=== PATIENT | male | born 1965 | race American Indian/Alaskan Native ===

== ENCOUNTER 2018-07-21 10:52 | Inpatient (IN) | payer MEDICARE ==
[2018-07-21] MEDS ORDERED: TIZANIDINE 6 MG PO PRN (21:38)
[2018-07-21] MEDS ORDERED: TYLENOL PO PRN (21:42)
[2018-07-21] MEDS ORDERED: SODIUM CHLORIDE FLUSH SYRINGE 10 ML IV PRN (21:42)
[2018-07-21] MEDS ORDERED: ZOFRAN IV PRN (21:42)
[2018-07-21] MEDS ORDERED: PERCOCET 5/325 PO PRN (21:42)
[2018-07-21] MEDS ORDERED: VANCOMYCIN PHARMACY TO DOSE IV SCH (22:00)
[2018-07-21] MEDS ORDERED: AMBIEN PO PRN (22:08)
[2018-07-21] MEDS ORDERED: ZANAFLEX PO PRN (22:13)
[2018-07-21] MEDS: THERAGRAN Tab PO SCH (22:19)
[2018-07-21] MEDS: DILAUDID IV PRN (22:20)
[2018-07-21] MEDS: SODIUM CHLORIDE FLUSH SYRINGE 10 ML IV SCH (22:21)
[2018-07-21 22:35] LABS: Basophils % (Auto) 0.7 % (0.0-1.8); Eosinophils # (Auto) 0.1 K/mm3 (0.0-0.4); Eosinophils % (Auto) 2.7 % (0.0-4.3); Hematocrit 34.1 % (35.5-45.6); Hemoglobin 11.6 gm/dl (11.8-15.2); Lymphocytes # (Auto) 1.1 K/mm3 (1.2-5.4); Lymphocytes % (Auto) 24.3 % (13.4-35.0); Mean Corpuscular HGB Conc 34 % (32-34); Mean Corpuscular Volume 91 fl (84-94); Monocytes # (Auto) 0.7 K/mm3 (0.0-0.8); Monocytes % (Auto) 14.7 % (0.0-7.3); Platelet Count 126 K/mm3 (140-440); Red Blood Count 3.74 M/mm3 (3.65-5.03); Red Cell Distribution Width 18.7 % (13.2-15.2)
[2018-07-21] MEDS ORDERED: VANCOMYCIN 1,750 MG in NACL 0.9% 500 ML 500 ML IV ONE (23:00)
[2018-07-21 23:02] LABS: Albumin 4.3 g/dL (3.9-5); Calcium 8.7 mg/dL (8.4-10.2)
--- NOTE | 2018-07-22 07:12 | Event Note ---
Date: 07/21/18 See H/p in reports LLE Cellulitis
[2018-07-22 07:34] LABS: Calcium 8.6 mg/dL (8.4-10.2)
--- NOTE | 2018-07-22 07:35 | History and Physical Report ---
CHIEF COMPLAINT: Left lower extremity swelling. Now sent as a direct admit from Dr. Little's office. HISTORY OF PRESENT ILLNESS: A 53-year-old -Serbian male with history of end-stage renal disease, on dialysis; generalized anxiety disorder and hypotension, sent in from Dr. Little's office for left lower extremity fifth toe infection and swelling of the left foot. The patient stated that the left fifth toe skin was red and now it is peeling off with discoloration, also swelling of the left foot. No shortness of breath. No chest pain. No fever or chills. PAST MEDICAL HISTORY: Significant for end-stage renal disease, on dialysis; chronic pain, hypotension, peripheral neuropathy. PAST SURGICAL HISTORY: AV fistula. SOCIAL HISTORY: Does not smoke. No alcohol, no recreational drugs. FAMILY HISTORY: Significant for hypertension. REVIEW OF SYSTEMS: Significant for left lower extremity swelling and redness, also left toe discoloration. No fever or chills. Otherwise, review of systems is negative. CURRENT MEDICATIONS: Midodrine 5 mg 3 times a day, Lyrica 100 mg t.i.d., Renvela 4000 mg t.i.d., tizanidine 6 mg daily, zolpidem 10 mg at bedtime, methadone 10 mg once a day, alprazolam 2 mg 3 times a day. Chantix on hold. PHYSICAL EXAMINATION: GENERAL: Middle-aged male, cooperative during examination. VITAL SIGNS: Blood pressure was 115/73, temperature 99.5, pulse is 88, respirations 20. HEENT: Unremarkable. Pupils equal and reactive. NECK: Supple, no lymphadenopathy, no thyromegaly. LUNGS: Clear to auscultation and percussion. Good air entry. CARDIOVASCULAR: S1, S2 heard. No gallop, no murmur, no rub. Apical impulse in left fifth intercostal space and midclavicular line. ABDOMEN: Soft and benign. No hepatosplenomegaly, no guarding, no rigidity. Hernial orifices are normal. EXTREMITIES: Left foot swollen, left great toe discoloration present. Skin is mottled and about to peel off. Pulses weakly felt. CENTRAL NERVOUS SYSTEM: Normal. LABORATORY DATA: Significant for white count of 4500, H and H is 11.6 and 34.1, platelet count is 126,000. Sodium is 136, potassium is 4.5, chloride is 86.4, bicarbonate is 37, BUN and creatinine is 29 and 9.1, total protein is 8.5. ASSESSMENT AND PLAN: 1. Left lower extremity cellulitis. The patient initiated on Unasyn and vancomycin. Orthopedic consult requested for the left toe infection and also ID consult requested. 2. End-stage renal disease. Continue dialysis. Dr. Obrien was consulted. 3. Hypotension. Continue midodrine. 4. Chronic pain. Continue methadone. 5. Peripheral neuropathy. Continue Lyrica. 6. Deep venous thrombosis prophylaxis, heparin 5000 q. 12. 7. Hyponatremia, mild. No action. 8. Anemia, chronic secondary to end-stage renal disease. Hemoglobin is 11.6. No intervention needed. JOB# [id number] ENRIQUE/KELLEY JACKSON
[2018-07-22] MEDS ORDERED: NON-FORMULARY (Pregabalin [Lyrica] 100 MG) PO SCH (08:00)
[2018-07-22] MEDS: LYRICA PO SCH ×6 (09:24→23:25)
[2018-07-22] MEDS: RENVELA PO SCH ×3 (09:24→18:35)
[2018-07-22] MEDS: XANAX PO SCH ×3 (09:25→23:24)
[2018-07-22] MEDS: PROAMATINE PO SCH ×3 (09:25→22:35)
[2018-07-22] MEDS: DOLOPHINE PO SCH (09:36)
[2018-07-22] MEDS: THERAGRAN Tab PO SCH (09:39)
[2018-07-22] MEDS: SODIUM CHLORIDE FLUSH SYRINGE 10 ML IV SCH ×2 (10:16→23:25)
[2018-07-22] MEDS: DILAUDID IV PRN (10:16)
[2018-07-22 10:21] LABS: Hematocrit 35.8 % (35.5-45.6); Hemoglobin 11.8 gm/dl (11.8-15.2); Mean Corpuscular HGB Conc 33 % (32-34); Mean Corpuscular Volume 92 fl (84-94); Platelet Count 119 K/mm3 (140-440); Red Blood Count 3.88 M/mm3 (3.65-5.03); Red Cell Distribution Width 18.8 % (13.2-15.2)
[2018-07-22 10:22] LABS: Basophils % (Auto) 0.7 % (0.0-1.8); Eosinophils # (Auto) 0.1 K/mm3 (0.0-0.4); Eosinophils % (Auto) 2.9 % (0.0-4.3); Lymphocytes # (Auto) 0.7 K/mm3 (1.2-5.4); Lymphocytes % (Auto) 17.5 % (13.4-35.0); Monocytes # (Auto) 0.6 K/mm3 (0.0-0.8); Monocytes % (Auto) 15.8 % (0.0-7.3)
--- NOTE | 2018-07-22 10:55 | Consultation ---
History of Present Illness - Reason for Consult Consult date: 07/22/18 end stage renal disease - History of Present Illness This is a 53 year old male who is admitted to this hospital for management of his left leg Cellulitis. Patient removed callous from his left 5th toe 2 weeks ago and states yesterday he noticed drainage coming from his left 5th toe and swelling. Infectious Disease and Ortho has been consulted. Currently complains of diarrhea from his IBS and is receiving Imodium. Patient has history of ESRD and is on hemodialysis every M,, at [facility]. Patient is due for dialysis today. We are being consulted for management of this patient's ESRD. Past History Past Medical History: anemia, diabetes, dialysis, ESRD, hypertension, renal failure, other (IBS, Chronic Hypotension) Past Surgical History: Other (AVG placement, Spinal surgery, eye surgery) Social history: no significant social history Family history: no significant family history Medications and Allergies Allergies Allergy/AdvReac Type Severity Reaction Status Date / Time No Known Allergies Allergy Verified 03/08/13 12:58 Home Medications Medication Instructions Recorded Confirmed Last Taken Type Multivitamin Tab [Multiple Vitamin 1 each PO QDAY #30 tablet 04/17/14 07/21/18 1 Day Ago Rx TAB (Theragran)] ~07/20/18 Sevelamer Carbonate [Renvela] 4,000 mg PO TIDWM 05/29/15 07/21/18 1 Day Ago History ~07/20/18 Zolpidem [Ambien] 10 mg PO QHS PRN 05/29/15 07/21/18 1 Day Ago History ~07/20/18 ALPRAZolam [Xanax TAB] 2 mg PO TID 07/21/18 07/21/18 1 Day Ago History ~07/20/18 Methadone [Dolophine] 10 mg PO DAILY 07/21/18 07/21/18 1 Day Ago History ~07/20/18 Midodrine [Proamatine] 5 mg PO TID 07/21/18 07/21/18 1 Day Ago History ~07/20/18 Oxycodone HCl [Roxicodone TAB] 15 mg PO TID 07/21/18 07/21/18 07/20/18 History Phenergan TAB 25 tab PO DAILY 07/21/18 07/21/18 1 Day Ago History ~07/20/18 Pregabalin [Lyrica] 100 mg PO TID 07/21/18 07/21/18 1 Day Ago History ~07/20/18 Varenicline Tartrate [Chantix] 1 mg PO DAILY 07/21/18 07/21/18 1 Day Ago History ~07/20/18 tiZANidine 6 mg PO QDAY PRN 07/21/18 07/21/18 1 Day Ago History ~07/20/18 Active Meds: Active Medications Acetaminophen (Tylenol) 650 mg PO Q4H PRN PRN Reason: Pain MILD(1-3)/Fever >100.5/WEST Alprazolam (Xanax) 2 mg PO TID [facility] Last Admin: 07/22/18 09:25 Dose: 2 mg Documented by: Hydromorphone HCl (Dilaudid) 0.5 mg IV Q3H PRN PRN Reason: Pain , Severe (7-10) Last Admin: 07/22/18 10:16 Dose: 0.5 mg Documented by: Ampicillin Sodium/Sulbactam Sodium (Unasyn/Ns 3 Gm/100 Ml) 3 gm in 100 mls @ 100 mls/hr IV Q12H [facility]; Protocol Last Admin: 07/21/18 23:51 Dose: 100 mls/hr Documented by: Methadone HCl (Dolophine) 10 mg PO DAILY [facility] Last Admin: 07/22/18 09:36 Dose: 10 mg Documented by: Midodrine (Proamatine) 5 mg PO TID [facility] Last Admin: 07/22/18 09:25 Dose: 5 mg Documented by: Multivitamins (Theragran Tab) 1 each PO QDAY [facility] Last Admin: 07/22/18 09:39 Dose: 1 each Documented by: Ondansetron HCl (Zofran) 4 mg IV Q8H PRN PRN Reason: Nausea And Vomiting Oxycodone/Acetaminophen (Percocet 5/325) 1 tab PO Q6H PRN PRN Reason: Pain, Moderate (4-6) Pregabalin (Lyrica) 25 mg PO TID [facility] Last Admin: 07/22/18 09:24 Dose: 25 mg Documented by: Pregabalin (Lyrica) 75 mg PO TID [facility] Last Admin: 07/22/18 09:25 Dose: 75 mg Documented by: Sevelamer Carbonate (Renvela) 4,000 mg PO TIDWM [facility] Last Admin: 07/22/18 09:24 Dose: 4,000 mg Documented by: Sodium Chloride (Sodium Chloride Flush Syringe 10 Ml) 10 ml IV BID [facility] Last Admin: 07/22/18 10:16 Dose: 10 ml Documented by: Sodium Chloride (Sodium Chloride Flush Syringe 10 Ml) 10 ml IV PRN PRN PRN Reason: LINE FLUSH Tizanidine HCl (Zanaflex) 6 mg PO QDAY PRN PRN Reason: Muscle Spasm Zolpidem Tartrate (Ambien) 10 mg PO QHS PRN PRN Reason: Sleep Review of Systems Constitutional: fatigue, no weight loss, no weight gain, no fever, no chills, no sweats, no poor appetite, no daytime sleepiness, no chronic pain Ears, nose, mouth and throat: no ear pain, no ear discharge, no tinnitis, no decreased hearing, no nose pain, no nasal congestion Cardiovascular: no chest pain, no orthopnea, no palpitations, no rapid/irregular heart beat, no shortness of breath Respiratory: no cough, no cough with sputum, no excessive sputum, no hemoptysis, no shortness of breath, no dyspnea on exertion Gastrointestinal: no abdominal pain, no nausea, no vomiting, no diarrhea, no constipation, no change in bowel habits Rectal: no pain, no incontinence, no bleeding, no itching Musculoskeletal: arthritis, other (left foot swelling), no neck stiffness, no neck pain, no shooting arm pain, no arm numbness/tingling, no low back pain, no shooting leg pain Integumentary: no rash, no pruritis, no redness, no sores, no wounds, no jaundice Neurological: lack of coordination, no head injury, no transient paralysis, no paralysis, no parathesias, no headaches, no migraines, no convulsions, no change in speech, no change in mentation Psychiatric: anxiety Endocrine: no cold intolerance, no heat intolerance, no polyphagia, no excessive thirst, no polydipsia Hematologic/Lymphatic: no easy bruising, no easy bleeding Exam - Vital Signs Vital signs: Vital Signs Temp Pulse Resp BP Pulse Ox 99.5 F 88 20 115/73 95 07/21/18 15:19 07/21/18 15:19 07/21/18 15:19 07/21/18 15:19 07/21/18 15:19 - General Appearance General appearance: well-developed, appears stated age, fatigue EENT: ATNC, PERRL, hearing intact, vision intact Neck: Present: neck supple, trachea midline Respiratory: Decreased Breath Sounds Heart: regular, S1S2 Gastrointestinal: Present: normoactive bowel sounds Integumentary: warm and dry Neurologic: alert and oriented x3 Musculoskeletal: Present: joint swelling, other (2+ edema to left lower extremity with dressing over toes) Results - Lab Results 07/22/18 09:55 07/22/18 06:58 Most recent lab results Calcium 8.6 mg/dL (8.4-10.2) 07/22/18 06:58 Assessment and Plan End Stage Renal Disease on Hemodialysis: -Hemodialysis today for UF and clearance -Fluid restriction of 1 liter per day -Obtain daily weights -Monitor I/O's -Renal diet -Assess dialysis needs daily Left Lower Extremity Cellulitis: - On IV Unasyn - ID and Ortho consulted Chronic Hypotension: -On Midodrine -Monitor BP IBS: Diarrhea: -On Imodium
[2018-07-22] MEDS ORDERED: NACL 0.9% 100 ML IV PRN (10:57)
[2018-07-22] MEDS ORDERED: ALBURX 25% (ALBUMIN) IV PRN (10:57)
[2018-07-22] MEDS: HABITROL TD SCH (12:10)
[2018-07-22] MEDS: IMODIUM PO PRN (12:13)
[2018-07-22] MEDS ORDERED: LOMOTIL PO ONE (13:30)
--- NOTE | 2018-07-22 13:42 | Consultation ---
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 The patient states that he was apparently doing fine until 07/19/2018 when he noticed his left foot was getting swollen as well as the fifth toe skin had turned red with some blister. He tried to clean it and it was significant bleeding. He then saw his PCP who recommended hospital admission. He otherwise denies any fever or chills. Denies any nausea, vomiting. Reports chronic diarrhea secondary to IBS. Patient was empirically started on Unasyn and vancomycin. Infectious diseases was consulted for additional recommendations. Orthopedics consulted on admission. Review of Systems: General: no fevers,chills or rigors HEENT: no new visual disturbance Respiratory: No cough, sputum, hemoptysis or shortness of breath Cardiovascular: No chest pain, syncope Gastrointestinal: No nausea, vomiting. Chronic unchanged diarrhea attributed to IBS by patient Genitourinary: No dysuria or hematuria Musculoskeletal: No new or worsening neck pain or back pain Neurologic: No headaches, seizures Hematologic: No easy bruising or bleeding Endocrine: No night sweats or acute weight loss Skin: negative for rash, jaundice Psychiatric: No suicidal or homicidal ideation Past History Past Medical History: anemia, diabetes, dialysis, ESRD, hypertension, renal failure, other (IBS, Chronic Hypotension) Past Surgical History: Other (AVG placement, Spinal surgery, eye surgery) Social history: no significant social history Family history: no significant family history Medications and Allergies Allergies Allergy/AdvReac Type Severity Reaction Status Date / Time No Known Allergies Allergy Verified 03/08/13 12:58 Home Medications Medication Instructions Recorded Confirmed Last Taken Type Multivitamin Tab [Multiple Vitamin 1 each PO QDAY #30 tablet 04/17/14 07/21/18 1 Day Ago Rx TAB (Theragran)] ~07/20/18 Sevelamer Carbonate [Renvela] 4,000 mg PO TIDWM 05/29/15 07/21/18 1 Day Ago History ~07/20/18 Zolpidem [Ambien] 10 mg PO QHS PRN 05/29/15 07/21/18 1 Day Ago History ~07/20/18 ALPRAZolam [Xanax TAB] 2 mg PO TID 07/21/18 07/21/18 1 Day Ago History ~07/20/18 Methadone [Dolophine] 10 mg PO DAILY 07/21/18 07/21/18 1 Day Ago History ~07/20/18 Midodrine [Proamatine] 5 mg PO TID 07/21/18 07/21/18 1 Day Ago History ~07/20/18 Oxycodone HCl [Roxicodone TAB] 15 mg PO TID 07/21/18 07/21/18 07/20/18 History Phenergan TAB 25 tab PO DAILY 07/21/18 07/21/18 1 Day Ago History ~07/20/18 Pregabalin [Lyrica] 100 mg PO TID 07/21/18 07/21/18 1 Day Ago History ~07/20/18 Varenicline Tartrate [Chantix] 1 mg PO DAILY 07/21/18 07/21/18 1 Day Ago History ~07/20/18 tiZANidine 6 mg PO QDAY PRN 07/21/18 07/21/18 1 Day Ago History ~07/20/18 Active Meds: Active Medications Acetaminophen (Tylenol) 650 mg PO Q4H PRN PRN Reason: Pain MILD(1-3)/Fever >100.5/WEST Albumin Human (Alburx 25% (Albumin)) 12.5 gm IV DWIGHT PRN PRN Reason: Hypotension Alprazolam (Xanax) 2 mg PO TID [facility] Last Admin: 07/22/18 09:25 Dose: 2 mg Documented by: Hydromorphone HCl (Dilaudid) 0.5 mg IV Q3H PRN PRN Reason: Pain , Severe (7-10) Last Admin: 07/22/18 10:16 Dose: 0.5 mg Documented by: Sodium Chloride (Nacl 0.9%) 100 mls @ 999 mls/hr IV DWIGHT PRN PRN Reason: Hypotension Cefepime HCl (Maxipime/Ns 1 Gm/100 Ml) 1 gm in 100 mls @ 200 mls/hr IV QPM [facility]; Protocol Metronidazole (Flagyl 500 Mg/100 Ml) 500 mg in 100 mls @ 100 mls/hr IV Q8HR [facility]; Protocol Loperamide HCl (Imodium) 2 mg PO Q2H PRN PRN Reason: Diarrhea Last Admin: 07/22/18 12:13 Dose: 2 mg Documented by: Methadone HCl (Dolophine) 10 mg PO DAILY [facility] Last Admin: 07/22/18 09:36 Dose: 10 mg Documented by: Midodrine (Proamatine) 5 mg PO TID [facility] Last Admin: 07/22/18 09:25 Dose: 5 mg Documented by: Multivitamins (Theragran Tab) 1 each PO QDAY [facility] Last Admin: 07/22/18 09:39 Dose: 1 each Documented by: Nicotine (Habitrol) 21 mg TD QDAY [facility] Last Admin: 07/22/18 12:10 Dose: 21 mg Documented by: Ondansetron HCl (Zofran) 4 mg IV Q8H PRN PRN Reason: Nausea And Vomiting Oxycodone/Acetaminophen (Percocet 5/325) 1 tab PO Q6H PRN PRN Reason: Pain, Moderate (4-6) Pregabalin (Lyrica) 25 mg PO TID [facility] Last Admin: 07/22/18 09:24 Dose: 25 mg Documented by: Pregabalin (Lyrica) 75 mg PO TID [facility] Last Admin: 07/22/18 09:25 Dose: 75 mg Documented by: Sevelamer Carbonate (Renvela) 4,000 mg PO TIDWM [facility] Last Admin: 07/22/18 12:11 Dose: 4,000 mg Documented by: Sodium Chloride (Sodium Chloride Flush Syringe 10 Ml) 10 ml IV BID [facility] Last Admin: 07/22/18 10:16 Dose: 10 ml Documented by: Sodium Chloride (Sodium Chloride Flush Syringe 10 Ml) 10 ml IV PRN PRN PRN Reason: LINE FLUSH Tizanidine HCl (Zanaflex) 6 mg PO QDAY PRN PRN Reason: Muscle Spasm Zolpidem Tartrate (Ambien) 10 mg PO QHS PRN PRN Reason: Sleep Physical Examination - Physical Exam Narrative exam: Physical Exam: Constitutional: Alert, cooperative. No acute distress Head, Ears, Nose: Normocephalic, atraumatic. External ears, nose normal Eyes: Conjunctivae/corneas clear. No icterus. No ptosis. Neck: Supple, no meningeal signs Oral: dentition several missing teeth, no thrush Cardiovascular: S1, S2 normal. Respiratory: Good air entry, clear to auscultation bilaterally GI: Soft, non-tender; bowel sounds normal. No peritoneal signs Musculoskeletal: LLE with edema of foot, toes extending to mid-coates. 5th toe with pale appearance, skin with hyperpigmentation. Skin: No rash or abscess Hem/Lymphatic: No palpable cervical or supraclavicular nodes. No lymphangitis Psych: Mood ok. Affect normal Neurological: Awake, alert, oriented. No gross abnormality - Constitutional Vitals: Vital Signs Temp Pulse Resp BP Pulse Ox 97.7 F 90 22 109/73 94 07/22/18 12:19 07/22/18 12:19 07/22/18 12:19 07/22/18 12:19 07/22/18 12:19 Temperature -Last 24 Hours Temperature 97.7 F Temperature 97.4 F Temperature 97.8 F Temperature 99.2 F Temperature 99.5 F Results - Labs CBC & Chem 7: 07/22/18 09:55 07/22/18 06:58 Labs: Abnormal lab results 07/21/18 07/21/18 07/22/18 Range/Units 21:52 21:52 06:58 WBC (4.5-11.0) K/mm3 Hgb 11.6 L (11.8-15.2) gm/dl Hct 34.1 L (35.5-45.6) % RDW 18.7 H (13.2-15.2) % Plt Count 126 L (140-440) K/mm3 [place] % (Auto) 14.7 H (0.0-7.3) % Lymph # 1.1 L (1.2-5.4) K/mm3 Sodium 136 L 134 L (137-145) mmol/L Potassium 5.3 H (3.6-5.0) mmol/L Chloride 86.4 L 87.9 L (98-107) mmol/L Carbon Dioxide 37 H (22-30) mmol/L BUN 29 H 31 H (9-20) mg/dL Creatinine 9.1 H 9.6 H (0.8-1.5) mg/dL Glucose 70 L 106 H (75-100) mg/dL Total Protein 8.5 H (6.3-8.2) g/dL 07/22/18 Range/Units 09:55 WBC 3.9 L (4.5-11.0) K/mm3 Hgb (11.8-15.2) gm/dl Hct (35.5-45.6) % RDW 18.8 H (13.2-15.2) % Plt Count 119 L (140-440) K/mm3 [place] % (Auto) 15.8 H (0.0-7.3) % Lymph # 0.7 L (1.2-5.4) K/mm3 Sodium (137-145) mmol/L Potassium (3.6-5.0) mmol/L Chloride (98-107) mmol/L Carbon Dioxide (22-30) mmol/L BUN (9-20) mg/dL Creatinine (0.8-1.5) mg/dL Glucose (75-100) mg/dL Total Protein (6.3-8.2) g/dL Assessment and Plan Cultures: 07/21/2018 MRSA nasal culture: In process Chart reviewed. A/P: 53-year-old male with ESRD on hemodialysis, diet and exercise controlled diabetes mellitus, peripheral neuropathy, prior MRSA bacteremia in 02/2014 and 04/2013. Now with: 1) Left lower extremity cellulitis with concern for possible underlying osteomyelitis of the left fifth toe: Start empiric antibiotics. Will obtain ultrasound to rule out DVT, also obtain arterial duplex. We'll obtain MRI to e valuate for underlying osteomyelitis and possible fluid collection/abscess. Patient already received abx, blood culture yield will be low. 2) ESRD: On hemodialysis. Renally dose antibiotics. 3) Peripheral neuropathy Recs: Empiric abx: Cefepime, Vancomycin and Flagyl d/leela Unasyn ultrasound to rule out DVT, also obtain arterial duplex MRI left foot without contrast to eval for osteomyelitis and abscess Awaiting surgery evaluation D/W Dr. Ramirez. MD [facility] C: [phone] O: [phone] F: [phone]
[2018-07-22] MEDS: FLAGYL 500 MG/100 ML 500 MG/100 ML BAG IV SCH ×2 (14:14→23:23)
--- NOTE | 2018-07-22 15:08 | Progress Note ---
Assessment and Plan Assessment and plan: --Left lower extremity cellulitis; and toe infection IV antibiotics, vancomycin, cefepime, and Flagyl follow cultures ID consult, Follow MRI lower extremity to rule out osteomyelitis Lower extremity venous Doppler negative for DVT --End-stage renal disease on hemodialysis; HD per scheduled, nephrology following --Type 2 diabetes mellitus; diet controlled Accu-Chek sliding scale coverage and ADA diet Insulin as needed, HbA1c less than 5 --Hypotension; IV fluids, continue Midodrin --Hyponatremia; closely monitor electrolytes --Irritable bowel syndrome/chronic diarrhea; Antidiarrheals, supportive care, stool for analysis if no improvement --Anemia of chronic disease and ESRD; Procrit during dialysis, closely monitor H&H --Peripheral neuropathy; on recheck up and supportive care. --DVT prophylaxis; hepatomegaly and renal dose Closely monitor the patient and adjust the management as needed Follow consults and recommendations, Plan of care reviewed with the patient History Interval history: Patient seen and examined medical records reviewed Patient is admitted with cellulitis on IV antibiotics Complaints of diarrhea Vital signs reviewed Hospitalist Physical - Constitutional Vitals: Temp Pulse Resp BP Pulse Ox 97.7 F 90 22 109/73 94 07/22/18 12:19 07/22/18 12:19 07/22/18 12:19 07/22/18 12:19 07/22/18 12:19 General appearance: Present: no acute distress, well-nourished - EENT Eyes: Present: PERRL, EOM intact - Neck Neck: Present: supple, normal ROM - Respiratory Respiratory effort: normal Respiratory: bilateral: diminished, negative: rales, rhonchi, wheezing - Cardiovascular Rhythm: regular Heart Sounds: Present: S1 & S2 - Extremities Extremities: no ischemia, abnormal (left lower extremity cellulitis, total infection) Extremity abnormal: edema Results - Labs CBC & Chem 7: 07/22/18 09:55 07/22/18 06:58 Labs: Laboratory Last Values WBC 3.9 K/mm3 (4.5-11.0) L 07/22/18 09:55 RBC 3.88 M/mm3 (3.65-5.03) 07/22/18 09:55 Hgb 11.8 gm/dl (11.8-15.2) 07/22/18 09:55 Hct 35.8 % (35.5-45.6) 07/22/18 09:55 MCV 92 fl (84-94) 07/22/18 09:55 MCH 30 pg (28-32) 07/22/18 09:55 MCHC 33 % (32-34) 07/22/18 09:55 RDW 18.8 % (13.2-15.2) H 07/22/18 09:55 Plt Count 119 K/mm3 (140-440) L 07/22/18 09:55 Lymph % (Auto) 17.5 % (13.4-35.0) 07/22/18 09:55 [place] % (Auto) 15.8 % (0.0-7.3) H 07/22/18 09:55 Eos % (Auto) 2.9 % (0.0-4.3) 07/22/18 09:55 Baso % (Auto) 0.7 % (0.0-1.8) 07/22/18 09:55 Lymph # 0.7 K/mm3 (1.2-5.4) L 07/22/18 09:55 [place] # 0.6 K/mm3 (0.0-0.8) 07/22/18 09:55 Eos # 0.1 K/mm3 (0.0-0.4) 07/22/18 09:55 Baso # 0.0 K/mm3 (0.0-0.1) 07/22/18 09:55 Add Manual Diff Complete 07/22/18 09:55 Seg Neutrophils % 63.1 % (40.0-70.0) 07/22/18 09:55 Seg Neutrophils # 2.5 K/mm3 (1.8-7.7) 07/22/18 09:55 Sodium 134 mmol/L (137-145) L 07/22/18 06:58 Potassium 5.3 mmol/L (3.6-5.0) H 07/22/18 06:58 Chloride 87.9 mmol/L (98-107) L 07/22/18 06:58 Carbon Dioxide 28 mmol/L (22-30) D 07/22/18 06:58 Anion Gap 23 mmol/L 07/22/18 06:58 BUN 31 mg/dL (9-20) H 07/22/18 06:58 Creatinine 9.6 mg/dL (0.8-1.5) H 07/22/18 06:58 Estimated GFR 7 ml/min 07/22/18 06:58 BUN/Creatinine Ratio 3 % 07/22/18 06:58 Glucose 106 mg/dL (75-100) H 07/22/18 06:58 POC Glucose 85 (70-105) 07/21/18 16:34 Hemoglobin A1c 4.9 % (4-6) 07/21/18 21:52 Calcium 8.6 mg/dL (8.4-10.2) 07/22/18 06:58 Total Bilirubin 0.50 mg/dL (0.1-1.2) 07/21/18 21:52 AST 25 units/L (5-40) 07/21/18 21:52 ALT 16 units/L (7-56) 07/21/18 21:52 Alkaline Phosphatase 90 units/L (35-129) 07/21/18 21:52 Total Protein 8.5 g/dL (6.3-8.2) H 07/21/18 21:52 Albumin 4.3 g/dL (3.9-5) 07/21/18 21:52 Albumin/Globulin Ratio 1.0 % 07/21/18 21:52 Active Medications - Current Medications Current Medications: Generic Name Dose Route Start Last Admin Trade Name Freq PRN Reason Stop Dose Admin Acetaminophen 650 mg 07/21/18 21:42 Tylenol PO Q4H PRN Pain MILD(1-3)/Fever >100.5/WEST Albumin Human 12.5 gm 07/22/18 10:57 Alburx 25% (Albumin) IV DWIGHT PRN Hypotension Alprazolam 2 mg 07/22/18 08:00 07/22/18 14:15 Xanax PO 2 mg TID KWAME Administration Hydromorphone HCl 0.5 mg 07/21/18 21:42 07/22/18 10:16 Dilaudid IV 0.5 mg Q3H PRN Administration Pain , Severe (7-10) Sodium Chloride 100 mls @ 999 mls/hr 07/22/18 10:57 Nacl 0.9% IV DWIGHT PRN Hypotension Cefepime HCl 1 gm in 100 mls @ 200 mls/hr 07/22/18 18:00 Maxipime/Ns 1 Gm/100 Ml IV QPM KWAME Protocol Metronidazole 500 mg in 100 mls @ 100 mls/hr 07/22/18 14:00 07/22/18 14:14 Flagyl 500 Mg/100 Ml IV 100 mls/hr Q8HR KWAME Administration Protocol Loperamide HCl 2 mg 07/22/18 11:20 07/22/18 12:13 Imodium PO 2 mg Q2H PRN Administration Diarrhea Methadone HCl 10 mg 07/22/18 10:00 07/22/18 09:36 Dolophine PO 10 mg DAILY KWAME Administration Midodrine 5 mg 07/22/18 08:00 07/22/18 14:15 Proamatine PO 5 mg TID KWAME Administration Multivitamins 1 each 07/21/18 22:00 07/22/18 09:39 Theragran Tab PO 1 each QDAY KWAME Administration Nicotine 21 mg 07/22/18 12:00 07/22/18 12:10 Habitrol TD 21 mg QDAY KWAME Administration Ondansetron HCl 4 mg 07/21/18 21:42 Zofran IV Q8H PRN Nausea And Vomiting Oxycodone/Acetaminophen 1 tab 07/21/18 21:42 Percocet 5/325 PO Q6H PRN Pain, Moderate (4-6) Pregabalin 25 mg 07/22/18 08:00 07/22/18 14:15 Lyrica PO 25 mg TID KWAME Administration Pregabalin 75 mg 07/22/18 08:00 07/22/18 14:15 Lyrica PO 75 mg TID KWAME Administration Sevelamer Carbonate 4,000 mg 07/22/18 08:00 07/22/18 12:11 Renvela PO 4,000 mg TIDWM KWAME Administration Sodium Chloride 10 ml 07/21/18 22:00 07/22/18 10:16 Sodium Chloride Flush Syringe 10 Ml IV 10 ml BID KWAME Administration Sodium Chloride 10 ml 07/21/18 21:42 Sodium Chloride Flush Syringe 10 Ml IV PRN PRN LINE FLUSH Tizanidine HCl 6 mg 07/21/18 22:13 Zanaflex PO QDAY PRN Muscle Spasm Zolpidem Tartrate 10 mg 07/21/18 22:08 Ambien PO QHS PRN Sleep Nutrition/Malnutrition Assess - Dietary Evaluation Nutrition/Malnutrition Findings: Nutrition Notes Start: 07/22/18 14:54 Freq: Status: Active Protocol: Document 07/22/18 14:54 RM (Rec: 07/22/18 15:04 RM [id number]) Nutrition Notes Need for Assessment generated from: MST Initial or Follow up Assessment Other Pertinent Diagnosis LLE toe infection, ESRD on HD, TA Current Diet Renal Labs/Tests Reviewed Pertinent Medications Reviewed Height 6 ft 1 in Weight 90.265 kg Usual Body Weight 86 kg [place] Body Weight (kg) 83.63 BMI 26.2 Subjective/Other Information Screened for malnutrition. 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 Stated that his appetite is poor now and that he ate bites of his breakfast. Noted preferences. Declined regular ONS d/t past experience of it causing diarrhea. Admitted to diarrhea currently. Stated dry wt is 189 lbs. No temporal or orbital wasting . Percent of energy/protein needs met: 0%/0% Burn Absent Trauma Absent #1 Nutrition Diagnosis Inadequate oral intake Etiology decreased appetite As Evidenced by Signs and Symptoms pt statement that he ate bites of his breakfast Is patient on ventilator? No Is Patient Ambulatory and/or Out of Bed Yes REE-([facility]-ambulatory/OOB) [ 2354.989 [id number]] Calculation Used for Recommendations [facility] Additional Notes Protein Need: 103-112g (1.2-1. 3g/kg dry wt) Fluid Needs: 1 ml/kcal Nutrition Intervention Change Diet Order: Continue current Add Supplement/Snack (indicate name/kcal Ensure Clear Mixed [place] 1 /protein ) daily Provides kCal: 240 Provides Protein (gm) 8 Goal #1 Meet at least 75% of calorie and protein needs via PO and ONS intakes Anticipated Discharge Needs: Renal diet Follow-Up By: 07/25/18 Additional Comments Follow for PO and ONS intakes
--- NOTE | 2018-07-22 16:41 | Consultation ---
History of Present Illness - HPI Consult date: 07/22/18 Consult reason: other History of present illness: 53 y/o male with c/o left leg swelling, hx of DM,CRF and MRSA...asked to evaluate left 5th toe/cellulitis... Past History Past Medical History: anemia, diabetes, dialysis, ESRD, hypertension, renal failure, other (IBS, Chronic Hypotension) Past Surgical History: Other (AVG placement, Spinal surgery, eye surgery) Social history: no significant social history Family history: no significant family history Medications and Allergies Allergies Allergy/AdvReac Type Severity Reaction Status Date / Time No Known Allergies Allergy Verified 03/08/13 12:58 Home Medications Medication Instructions Recorded Confirmed Last Taken Type Multivitamin Tab [Multiple Vitamin 1 each PO QDAY #30 tablet 04/17/14 07/21/18 1 Day Ago Rx TAB (Theragran)] ~07/20/18 Sevelamer Carbonate [Renvela] 4,000 mg PO TIDWM 05/29/15 07/21/18 1 Day Ago History ~07/20/18 Zolpidem [Ambien] 10 mg PO QHS PRN 05/29/15 07/21/18 1 Day Ago History ~07/20/18 ALPRAZolam [Xanax TAB] 2 mg PO TID 07/21/18 07/21/18 1 Day Ago History ~07/20/18 Methadone [Dolophine] 10 mg PO DAILY 07/21/18 07/21/18 1 Day Ago History ~07/20/18 Midodrine [Proamatine] 5 mg PO TID 07/21/18 07/21/18 1 Day Ago History ~07/20/18 Oxycodone HCl [Roxicodone TAB] 15 mg PO TID 07/21/18 07/21/18 07/20/18 History Phenergan TAB 25 tab PO DAILY 07/21/18 07/21/18 1 Day Ago History ~07/20/18 Pregabalin [Lyrica] 100 mg PO TID 07/21/18 07/21/18 1 Day Ago History ~07/20/18 Varenicline Tartrate [Chantix] 1 mg PO DAILY 07/21/18 07/21/18 1 Day Ago History ~07/20/18 tiZANidine 6 mg PO QDAY PRN 07/21/18 07/21/18 1 Day Ago History ~07/20/18 Active Meds: Active Medications Acetaminophen (Tylenol) 650 mg PO Q4H PRN PRN Reason: Pain MILD(1-3)/Fever >100.5/WEST Albumin Human (Alburx 25% (Albumin)) 12.5 gm IV DWIGHT PRN PRN Reason: Hypotension Alprazolam (Xanax) 2 mg PO TID [facility] Last Admin: 07/22/18 14:15 Dose: 2 mg Documented by: Hydromorphone HCl (Dilaudid) 0.5 mg IV Q3H PRN PRN Reason: Pain , Severe (7-10) Last Admin: 07/22/18 10:16 Dose: 0.5 mg Documented by: Sodium Chloride (Nacl 0.9%) 100 mls @ 999 mls/hr IV DWIGHT PRN PRN Reason: Hypotension Cefepime HCl (Maxipime/Ns 1 Gm/100 Ml) 1 gm in 100 mls @ 200 mls/hr IV QPM [facility]; Protocol Metronidazole (Flagyl 500 Mg/100 Ml) 500 mg in 100 mls @ 100 mls/hr IV Q8HR [facility]; Protocol Last Admin: 07/22/18 14:14 Dose: 100 mls/hr Documented by: Loperamide HCl (Imodium) 2 mg PO Q2H PRN PRN Reason: Diarrhea Last Admin: 07/22/18 12:13 Dose: 2 mg Documented by: Methadone HCl (Dolophine) 10 mg PO DAILY [facility] Last Admin: 07/22/18 09:36 Dose: 10 mg Documented by: Midodrine (Proamatine) 5 mg PO TID [facility] Last Admin: 07/22/18 14:15 Dose: 5 mg Documented by: Multivitamins (Theragran Tab) 1 each PO QDAY [facility] Last Admin: 07/22/18 09:39 Dose: 1 each Documented by: Nicotine (Habitrol) 21 mg TD QDAY [facility] Last Admin: 07/22/18 12:10 Dose: 21 mg Documented by: Ondansetron HCl (Zofran) 4 mg IV Q8H PRN PRN Reason: Nausea And Vomiting Oxycodone/Acetaminophen (Percocet 5/325) 1 tab PO Q6H PRN PRN Reason: Pain, Moderate (4-6) Pregabalin (Lyrica) 25 mg PO TID [facility] Last Admin: 07/22/18 14:15 Dose: 25 mg Documented by: Pregabalin (Lyrica) 75 mg PO TID [facility] Last Admin: 07/22/18 14:15 Dose: 75 mg Documented by: Sevelamer Carbonate (Renvela) 4,000 mg PO TIDWM [facility] Last Admin: 07/22/18 12:11 Dose: 4,000 mg Documented by: Sodium Chloride (Sodium Chloride Flush Syringe 10 Ml) 10 ml IV BID [facility] Last Admin: 07/22/18 10:16 Dose: 10 ml Documented by: Sodium Chloride (Sodium Chloride Flush Syringe 10 Ml) 10 ml IV PRN PRN PRN Reason: LINE FLUSH Tizanidine HCl (Zanaflex) 6 mg PO QDAY PRN PRN Reason: Muscle Spasm Zolpidem Tartrate (Ambien) 10 mg PO QHS PRN PRN Reason: Sleep Physical Examination - Physical exam Narrative exam: left LE's - moderate swelling, no erythema/warmth noted, 5th toe dark ischemic, no drainage noted poor capillary refill Assessment and Plan Cellulitis left leg early dry gangree 5th toe continue IVAB and observation
[2018-07-22] MEDS ORDERED: ATIVAN IV NR (17:00)
--- NOTE | 2018-07-22 17:10 | Vascular Lab Report ---
PROCEDURE: VL VENOUS DUPLEX LE LT TECHNIQUE: Grayscale, color flow and Doppler waveform imaging of the deep venous structures of the l eft lower extremity and of the proximal deep venous structures of the right lower extremity was perfo rmed. HISTORY: Left leg swelling COMPARISONS: None FINDINGS: There is demonstration of normal compression and normal phasic flow in the deep venous structures of the left lower extremity from the common femoral vein to the popliteal vein. There is demonstration of normal compression and flow in the left posterior tibial and peroneal veins . There is demonstration of normal compression and normal phasic flow in the right common femoral, prox imal superficial femoral and deep femoral veins. There is demonstration of an enlarged left inguinal lymph node measures approximately 2.6 cm in the m aximal dimension. IMPRESSION: 1. No ultrasound evidence of deep venous thrombosis left lower extremity nor in the proximal right lo wer extremity. 2. Enlarged left inguinal lymph node. This document is electronically signed by Asia Fraga MD., July 22 2018 05:07:43 PM ET
--- NOTE | 2018-07-22 17:19 | Vascular Lab Report ---
PROCEDURE: VL ARTERIAL DUPLEX LE BILAT TECHNIQUE: Grayscale, color flow and Doppler waveform imaging of the arterial structures of the lowe r extremities was performed. HISTORY: Left toe infection history of end-stage renal disease. COMPARISONS: None FINDINGS: There is demonstration of antegrade flow in the arterial structures of the lower extremities bilatera lly from the common femoral arteries to the dorsalis pedis arteries. There is no evidence of occlusion or hemodynamically significant stenosis. There is evidence of atherosclerotic vascular disease with plaque formation in the arteries of the lo wer extremities bilaterally, left greater than right. Peak systolic velocities are as follows (centimeters per second): Right lower extremity: Distal external iliac artery: 80, triphasic Common femoral artery: 75, triphasic Proximal superficial femoral artery: 88, triphasic Deep femoral artery: 63, triphasic Mid superficial femoral artery: 68, triphasic Distal superficial femoral artery: 79, triphasic Popliteal artery: 58, triphasic Posterior tibial artery: 45, biphasic Anterior tibial artery: 53, biphasic Dorsalis pedis artery: 39, biphasic Left lower extremity: Distal external iliac artery: 139, monophasic Common femoral artery: 104, monophasic Proximal superficial femoral artery: 109, monophasic Deep femoral artery: 83, biphasic Mid superficial femoral artery: 109, monophasic Distal superficial femoral artery: 132, monophasic Popliteal artery: 124, monophasic Posterior tibial artery: 49, monophasic Anterior tibial artery: 62, monophasic Dorsalis pedis artery: 65, monophasic IMPRESSION: 1. Atherosclerotic vascular disease involving the arteries of the lower extremities bilaterally, left greater than right, without evidence of occlusion or hemodynamically significant stenoses in the low er extremities. This document is electronically signed by Asia Fraga MD., July 22 2018 05:17:42 PM ET
[2018-07-22] MEDS ORDERED: MAXIPIME/NS 1 GM/100 ML 1 GM/100 ML BAG IV SCH (18:00)
--- NOTE | 2018-07-22 20:13 | Magnetic Resonance Report ---
PROCEDURE: MR LE JOINT LT WO CON HISTORY: Left 5th toe infection, r/o osteomyelitis/abscess FINDINGS: MRI of the left foot was performed using short axis TI, short axis fat saturated T2, long a xis TI, long axis fat saturated T2, likely axis inversion recovery, sagittal inversion recovery and s agittal T1-weighted images. These images demonstrate abnormal low T1, increased inversion recovery signal within the phalanges of the fifth digit, best depicted long axis fat saturated T2-weighted images 12-14. Signal within the f ifth metatarsal is within normal limits. The metatarsals and phalanges of the first through fourth ra ys display normal signal intensity. There is subcutaneous soft tissue edema of the dorsum of the foot, which could represent cellulitis. No soft tissue abscess is seen. IMPRESSION: Osteomyelitis of phalanges of fifth digit This document is electronically signed by Del Leon MD., July 22 2018 08:11:12 PM ET
[2018-07-22] MEDS ORDERED: UNASYN/NS 3 GM/100 ML 3 GM/100 ML BAG IV SCH ×3 (22:00)
[2018-07-22] MEDS ORDERED: RENVELA PO ONE (23:00)
[2018-07-22] MEDS: MAXIPIME/NS 1 GM/100 ML 1 GM/100 ML BAG IV SCH (23:23)
[2018-07-22] MEDS ORDERED: NACL 0.9 (PRIMING MACHINE ONLY DIALYSIS) MC ONE (23:27)
[2018-07-23 05:04] LABS: Basophils % (Auto) 0.7 % (0.0-1.8); Eosinophils # (Auto) 0.1 K/mm3 (0.0-0.4); Eosinophils % (Auto) 2.8 % (0.0-4.3); Hematocrit 33.4 % (35.5-45.6); Hemoglobin 10.9 gm/dl (11.8-15.2); Lymphocytes # (Auto) 0.5 K/mm3 (1.2-5.4); Mean Corpuscular HGB Conc 33 % (32-34); Mean Corpuscular Volume 93 fl (84-94); Monocytes # (Auto) 0.5 K/mm3 (0.0-0.8); Monocytes % (Auto) 15.7 % (0.0-7.3); Platelet Count 110 K/mm3 (140-440); Red Cell Distribution Width 19.3 % (13.2-15.2)
[2018-07-23 05:26] LABS: Albumin 3.8 g/dL (3.9-5); Calcium 9.1 mg/dL (8.4-10.2)
[2018-07-23] MEDS: FLAGYL 500 MG/100 ML 500 MG/100 ML BAG IV SCH ×3 (05:46→21:41)
[2018-07-23] MEDS: PROAMATINE PO SCH ×3 (09:30→21:41)
[2018-07-23] MEDS: LYRICA PO SCH ×6 (09:31→21:41)
[2018-07-23] MEDS: XANAX PO SCH ×3 (09:31→21:41)
[2018-07-23] MEDS: RENVELA PO SCH ×3 (09:32→17:46)
--- NOTE | 2018-07-23 09:34 | Progress Note ---
Assessment and Plan End Stage Renal Disease on Hemodialysis: -no indication for HD today -Fluid restriction of 1 liter per day -Obtain daily weights -Monitor I/O's -Renal diet -Assess dialysis needs daily Left Lower Extremity Cellulitis: - On IV Unasyn - ID and Ortho consulted Chronic Hypotension: -On Midodrine -Monitor BP IBS: Diarrhea: -On Imodium Subjective Date of service: 07/23/18 Principal diagnosis: ESRD on HD Interval history: tolerated HD yesterday Objective - Vital Signs Vital signs: Vital Signs - 12hr 07/22/18 07/22/18 07/22/18 21:35 21:55 23:05 Temperature 98 F 98.3 F Pulse Rate 72 70 Respiratory 18 16 Rate Blood Pressure 116/55 116/78 97/41 O2 Sat by Pulse Oximetry 07/23/18 05:25 Temperature 97.4 F L Pulse Rate 71 Respiratory 16 Rate Blood Pressure 94/58 O2 Sat by Pulse 97 Oximetry - General Appearance General appearance: well-developed, well-nourished, appears stated age EENT: ATNC, PERRL, mucous membranes moist Neck: no JVD, no carotid bruit Respiratory: Present: Clear to Ascultation. Absent: Rales, Ronchi Cardiology: regular, S1S2 Gastrointestinal: normoactive bowel sounds, no tenderness, no distended Integumentary: no rash, warm and dry Neurologic: no focal deficit, no asterixis, alert and oriented x3 Musculoskeletal: other (trace pitting edema in BLE) Psychiatric: mood/affect appropriate, cooperative - Lab 07/23/18 04:39 07/23/18 04:39 Most recent lab results Calcium 9.1 mg/dL (8.4-10.2) 07/23/18 04:39 Phosphorus 3.90 mg/dL (2.5-4.5) 07/23/18 04:39 Medications & Allergies - Medications Allergies/Adverse Reactions: Allergies No Known Allergies Allergy (Verified 03/08/13 12:58) Home Medications: Home Medications Medication Instructions Recorded Confirmed Last Taken Type Multivitamin Tab [Multiple Vitamin 1 each PO QDAY #30 tablet 04/17/14 07/21/18 1 Day Ago Rx TAB (Theragran)] ~07/20/18 Sevelamer Carbonate [Renvela] 4,000 mg PO TIDWM 05/29/15 07/21/18 1 Day Ago History ~07/20/18 Zolpidem [Ambien] 10 mg PO QHS PRN 05/29/15 07/21/18 1 Day Ago History ~07/20/18 ALPRAZolam [Xanax TAB] 2 mg PO TID 07/21/18 07/21/18 1 Day Ago History ~07/20/18 Methadone [Dolophine] 10 mg PO DAILY 07/21/18 07/21/18 1 Day Ago History ~07/20/18 Midodrine [Proamatine] 5 mg PO TID 07/21/18 07/21/18 1 Day Ago History ~07/20/18 Oxycodone HCl [Roxicodone TAB] 15 mg PO TID 07/21/18 07/21/18 07/20/18 History Phenergan TAB 25 tab PO DAILY 07/21/18 07/21/18 1 Day Ago History ~07/20/18 Pregabalin [Lyrica] 100 mg PO TID 07/21/18 07/21/18 1 Day Ago History ~07/20/18 Varenicline Tartrate [Chantix] 1 mg PO DAILY 07/21/18 07/21/18 1 Day Ago History ~07/20/18 tiZANidine 6 mg PO QDAY PRN 07/21/18 07/21/18 1 Day Ago History ~07/20/18 Active Medications: Generic Name Dose Route Start Last Admin Trade Name Freq PRN Reason Stop Dose Admin Acetaminophen 650 mg 07/21/18 21:42 Tylenol PO Q4H PRN Pain MILD(1-3)/Fever >100.5/WEST Albumin Human 12.5 gm 07/22/18 10:57 Alburx 25% (Albumin) IV DWIGHT PRN Hypotension Alprazolam 2 mg 07/22/18 08:00 07/22/18 23:24 Xanax PO 2 mg TID KWAME Administration Hydromorphone HCl 0.5 mg 07/21/18 21:42 07/22/18 10:16 Dilaudid IV 0.5 mg Q3H PRN Administration Pain , Severe (7-10) Sodium Chloride 100 mls @ 999 mls/hr 07/22/18 10:57 Nacl 0.9% IV DWIGHT PRN Hypotension Metronidazole 500 mg in 100 mls @ 100 mls/hr 07/22/18 14:00 07/23/18 05:46 Flagyl 500 Mg/100 Ml IV 100 mls/hr Q8HR KWAME Administration Protocol Cefepime HCl 1 gm in 100 mls @ 200 mls/hr 07/22/18 22:00 07/22/18 23:23 Maxipime/Ns 1 Gm/100 Ml IV 200 mls/hr QHS KWAME Administration Protocol Loperamide HCl 2 mg 07/22/18 11:20 07/22/18 12:13 Imodium PO 2 mg Q2H PRN Administration Diarrhea Methadone HCl 10 mg 07/22/18 10:00 07/22/18 09:36 Dolophine PO 10 mg DAILY KWAME Administration Midodrine 5 mg 07/22/18 08:00 07/22/18 22:35 Proamatine PO Not Given TID KWAME Multivitamins 1 each 07/21/18 22:00 07/22/18 09:39 Theragran Tab PO 1 each QDAY KWAME Administration Nicotine 21 mg 07/22/18 12:00 07/22/18 12:10 Habitrol TD 21 mg QDAY KWAME Administration Ondansetron HCl 4 mg 07/21/18 21:42 Zofran IV Q8H PRN Nausea And Vomiting Oxycodone/Acetaminophen 1 tab 07/21/18 21:42 Percocet 5/325 PO Q6H PRN Pain, Moderate (4-6) Pregabalin 25 mg 07/22/18 08:00 07/22/18 23:25 Lyrica PO 25 mg TID KWAME Administration Pregabalin 75 mg 07/22/18 08:00 07/22/18 23:24 Lyrica PO 75 mg TID KWAME Administration Sevelamer Carbonate 4,000 mg 07/22/18 08:00 07/22/18 18:35 Renvela PO Not Given TIDWM KWAME Sodium Chloride 10 ml 07/21/18 22:00 07/22/18 23:25 Sodium Chloride Flush Syringe 10 Ml IV 10 ml BID KWAME Administration Sodium Chloride 10 ml 07/21/18 21:42 Sodium Chloride Flush Syringe 10 Ml IV PRN PRN LINE FLUSH Tizanidine HCl 6 mg 07/21/18 22:13 Zanaflex PO QDAY PRN Muscle Spasm Zolpidem Tartrate 10 mg 07/21/18 22:08 Ambien PO QHS PRN Sleep
[2018-07-23] MEDS: DOLOPHINE PO SCH (11:58)
[2018-07-23] MEDS: THERAGRAN Tab PO SCH (11:58)
[2018-07-23] MEDS: IMODIUM PO PRN (11:58)
[2018-07-23] MEDS: HABITROL TD SCH (11:59)
--- NOTE | 2018-07-23 12:04 | Progress Note ---
Assessment and Plan Assessment and plan: --Left lower extremity cellulitis; and toe infection IV antibiotics, vancomycin, cefepime, and Flagyl, Follow MRI lower extremity; osteomyelitis of the fifth digit Continue current antibiotics, ID following Lower extremity venous Doppler negative for DVT --End-stage renal disease on hemodialysis; HD per scheduled, nephrology following --Type 2 diabetes mellitus; diet controlled Accu-Chek sliding scale coverage and ADA diet Insulin as needed, HbA1c less than 5 --Hypotension; IV fluids, continue Midodrin --Hyponatremia; closely monitor electrolytes --Irritable bowel syndrome/chronic diarrhea; Antidiarrheals, supportive care, stool for analysis if no improvement --Anemia of chronic disease and ESRD; Procrit during dialysis, closely monitor H&H --Peripheral neuropathy; on recheck up and supportive care. --DVT prophylaxis; hepatomegaly and renal dose Closely monitor the patient and adjust the management as needed Follow consults and recommendations, Plan of care reviewed with the patient History Interval history: Patient seen and examined medical records reviewed No new events reported by the nursing staff Patient feels better Vital signs noted Hospitalist Physical - Constitutional Vitals: Temp Pulse Resp BP Pulse Ox 94.5 F L 75 12 102/55 98 07/23/18 10:44 07/23/18 10:44 07/23/18 10:44 07/23/18 10:44 07/23/18 10:44 General appearance: Present: no acute distress, well-nourished - EENT Eyes: Present: PERRL, EOM intact, scleral icterus, conjunctival injection - Neck Neck: Present: supple, normal ROM - Respiratory Respiratory effort: normal Respiratory: bilateral: diminished, negative: rales, rhonchi, wheezing - Cardiovascular Rhythm: regular Heart Sounds: Present: S1 & S2 - Extremities Extremities: no ischemia, No edema - Abdominal General gastrointestinal: soft, non-tender, non-distended, normal bowel sounds - Integumentary Integumentary: Present: clear, warm - Psychiatric Psychiatric: appropriate mood/affect, cooperative - Neurologic Neurologic: CNII-XII intact, moves all extremities Results - Labs CBC & Chem 7: 07/23/18 04:39 07/23/18 04:39 Labs: Laboratory Last Values WBC 2.9 K/mm3 (4.5-11.0) L 07/23/18 04:39 RBC 3.60 M/mm3 (3.65-5.03) L 07/23/18 04:39 Hgb 10.9 gm/dl (11.8-15.2) L 07/23/18 04:39 Hct 33.4 % (35.5-45.6) L 07/23/18 04:39 MCV 93 fl (84-94) 07/23/18 04:39 MCH 30 pg (28-32) 07/23/18 04:39 MCHC 33 % (32-34) 07/23/18 04:39 RDW 19.3 % (13.2-15.2) H 07/23/18 04:39 Plt Count 110 K/mm3 (140-440) L 07/23/18 04:39 Lymph % (Auto) 18.0 % (13.4-35.0) 07/23/18 04:39 [place] % (Auto) 15.7 % (0.0-7.3) H 07/23/18 04:39 Eos % (Auto) 2.8 % (0.0-4.3) 07/23/18 04:39 Baso % (Auto) 0.7 % (0.0-1.8) 07/23/18 04:39 Lymph # 0.5 K/mm3 (1.2-5.4) L 07/23/18 04:39 [place] # 0.5 K/mm3 (0.0-0.8) 07/23/18 04:39 Eos # 0.1 K/mm3 (0.0-0.4) 07/23/18 04:39 Baso # 0.0 K/mm3 (0.0-0.1) 07/23/18 04:39 Add Manual Diff Complete 07/22/18 09:55 Seg Neutrophils % 62.8 % (40.0-70.0) 07/23/18 04:39 Seg Neutrophils # 1.8 K/mm3 (1.8-7.7) 07/23/18 04:39 Sodium 138 mmol/L (137-145) 07/23/18 04:39 Potassium 4.6 mmol/L (3.6-5.0) 07/23/18 04:39 Chloride 93.8 mmol/L (98-107) L 07/23/18 04:39 Carbon Dioxide 31 mmol/L (22-30) H 07/23/18 04:39 Anion Gap 18 mmol/L 07/23/18 04:39 BUN 19 mg/dL (9-20) 07/23/18 04:39 Creatinine 7.5 mg/dL (0.8-1.5) H 07/23/18 04:39 Estimated GFR 9 ml/min 07/23/18 04:39 BUN/Creatinine Ratio 3 % 07/23/18 04:39 Glucose 83 mg/dL (75-100) 07/23/18 04:39 POC Glucose 85 (70-105) 07/21/18 16:34 Hemoglobin A1c 4.9 % (4-6) 07/21/18 21:52 Calcium 9.1 mg/dL (8.4-10.2) 07/23/18 04:39 Phosphorus 3.90 mg/dL (2.5-4.5) 07/23/18 04:39 Total Bilirubin 0.50 mg/dL (0.1-1.2) 07/23/18 04:39 AST 25 units/L (5-40) 07/23/18 04:39 ALT 13 units/L (7-56) 07/23/18 04:39 Alkaline Phosphatase 88 units/L (35-129) 07/23/18 04:39 Total Protein 7.6 g/dL (6.3-8.2) 07/23/18 04:39 Albumin 3.8 g/dL (3.9-5) L 07/23/18 04:39 Albumin/Globulin Ratio 1.0 % 07/23/18 04:39 Random Vancomycin 15.1 ug/mL (0-40.0) 07/23/18 04:39 Active Medications - Current Medications Current Medications: Generic Name Dose Route Start Last Admin Trade Name Freq PRN Reason Stop Dose Admin Acetaminophen 650 mg 07/21/18 21:42 Tylenol PO Q4H PRN Pain MILD(1-3)/Fever >100.5/WEST Albumin Human 12.5 gm 07/22/18 10:57 Alburx 25% (Albumin) IV DWIGHT PRN Hypotension Alprazolam 2 mg 07/22/18 08:00 07/23/18 09:31 Xanax PO 2 mg TID KWAME Administration Hydromorphone HCl 0.5 mg 07/21/18 21:42 07/22/18 10:16 Dilaudid IV 0.5 mg Q3H PRN Administration Pain , Severe (7-10) Sodium Chloride 100 mls @ 999 mls/hr 07/22/18 10:57 Nacl 0.9% IV DWIGHT PRN Hypotension Metronidazole 500 mg in 100 mls @ 100 mls/hr 07/22/18 14:00 07/23/18 05:46 Flagyl 500 Mg/100 Ml IV 100 mls/hr Q8HR KWAME Administration Protocol Cefepime HCl 1 gm in 100 mls @ 200 mls/hr 07/22/18 22:00 07/22/18 23:23 Maxipime/Ns 1 Gm/100 Ml IV 200 mls/hr QHS KWAME Administration Protocol Loperamide HCl 2 mg 07/22/18 11:20 07/23/18 11:58 Imodium PO 2 mg Q2H PRN Administration Diarrhea Methadone HCl 10 mg 07/22/18 10:00 07/23/18 11:58 Dolophine PO 10 mg DAILY KWAME Administration Midodrine 5 mg 07/22/18 08:00 07/23/18 09:30 Proamatine PO 5 mg TID KWAME Administration Multivitamins 1 each 07/21/18 22:00 07/23/18 11:58 Theragran Tab PO 1 each QDAY KWAME Administration Nicotine 21 mg 07/22/18 12:00 07/23/18 11:59 Habitrol TD 21 mg QDAY KWAME Administration Ondansetron HCl 4 mg 07/21/18 21:42 Zofran IV Q8H PRN Nausea And Vomiting Oxycodone/Acetaminophen 1 tab 07/21/18 21:42 Percocet 5/325 PO Q6H PRN Pain, Moderate (4-6) Pregabalin 25 mg 07/22/18 08:00 07/23/18 09:31 Lyrica PO 25 mg TID KWAME Administration Pregabalin 75 mg 07/22/18 08:00 07/23/18 09:31 Lyrica PO 75 mg TID KWAME Administration Sevelamer Carbonate 4,000 mg 07/22/18 08:00 07/23/18 09:32 Renvela PO 4,000 mg TIDWM KWAME Administration Sodium Chloride 10 ml 07/21/18 22:00 07/22/18 23:25 Sodium Chloride Flush Syringe 10 Ml IV 10 ml BID KWAME Administration Sodium Chloride 10 ml 07/21/18 21:42 Sodium Chloride Flush Syringe 10 Ml IV PRN PRN LINE FLUSH Tizanidine HCl 6 mg 07/21/18 22:13 Zanaflex PO QDAY PRN Muscle Spasm Zolpidem Tartrate 10 mg 07/21/18 22:08 Ambien PO QHS PRN Sleep Nutrition/Malnutrition Assess - Dietary Evaluation Nutrition/Malnutrition Findings: Nutrition Notes Start: 07/22/18 14:54 Freq: Status: Active Protocol: Document 07/22/18 14:54 RM (Rec: 07/22/18 15:04 RM [id number]) Nutrition Notes Need for Assessment generated from: MST Initial or Follow up Assessment Other Pertinent Diagnosis LLE toe infection, ESRD on HD, TA Current Diet Renal Labs/Tests Reviewed Pertinent Medications Reviewed Height 6 ft 1 in Weight 90.265 kg Usual Body Weight 86 kg [place] Body Weight (kg) 83.63 BMI 26.2 Subjective/Other Information Screened for malnutrition. Pt stated that MSWS his appetite was poor d/t self reported IBS and that he ate 1 meal daily w/some snacks ie: chips,popcorn,etc. Stated that his appetite is poor now and that he ate bites of his breakfast. Noted preferences. Declined regular ONS d/t past experience of it causing diarrhea. Admitted to diarrhea currently. Stated dry wt is 189 lbs. No temporal or orbital wasting . Percent of energy/protein needs met: 0%/0% Burn Absent Trauma Absent #1 Nutrition Diagnosis Inadequate oral intake Etiology decreased appetite As Evidenced by Signs and Symptoms pt statement that he ate bites of his breakfast Is patient on ventilator? No Is Patient Ambulatory and/or Out of Bed Yes REE-([place]-St. Jeor-ambulatory/OOB) [ 2354.989 [id number]] Calculation Used for Recommendations [place]-St Jeor Additional Notes Protein Need: 103-112g (1.2-1. 3g/kg dry wt) Fluid Needs: 1 ml/kcal Nutrition Intervention Change Diet Order: Continue current Add Supplement/Snack (indicate name/kcal Ensure Clear Mixed [place] 1 /protein ) daily Provides kCal: 240 Provides Protein (gm) 8 Goal #1 Meet at least 75% of calorie and protein needs via PO and ONS intakes Anticipated Discharge Needs: Renal diet Follow-Up By: 07/25/18 Additional Comments Follow for PO and ONS intakes
[2018-07-23] MEDS: DILAUDID IV PRN (12:12)
[2018-07-23] MEDS: SODIUM CHLORIDE FLUSH SYRINGE 10 ML IV SCH ×2 (12:18→21:42)
[2018-07-23] MEDS: MAXIPIME/NS 1 GM/100 ML 1 GM/100 ML BAG IV SCH (22:42)
[2018-07-24] MEDS: DILAUDID IV PRN ×4 (03:58→23:08)
[2018-07-24] MEDS: IMODIUM PO PRN (03:58)
[2018-07-24] MEDS: FLAGYL 500 MG/100 ML 500 MG/100 ML BAG IV SCH ×3 (05:23→21:06)
[2018-07-24 05:39] LABS: Calcium 8.9 mg/dL (8.4-10.2)
[2018-07-24 06:02] LABS: Hematocrit 33.2 % (35.5-45.6); Hemoglobin 10.9 gm/dl (11.8-15.2); Mean Corpuscular HGB Conc 33 % (32-34); Mean Corpuscular Volume 93 fl (84-94); Platelet Count 136 K/mm3 (140-440); Red Blood Count 3.58 M/mm3 (3.65-5.03); Red Cell Distribution Width 18.5 % (13.2-15.2)
[2018-07-24] MEDS: LYRICA PO SCH ×6 (07:54→20:47)
[2018-07-24] MEDS: RENVELA PO SCH ×3 (07:54→16:15)
[2018-07-24] MEDS: PROAMATINE PO SCH ×3 (07:55→20:49)
[2018-07-24] MEDS: XANAX PO SCH ×3 (07:55→20:46)
--- NOTE | 2018-07-24 08:55 | Progress Note ---
Assessment and Plan End Stage Renal Disease on Hemodialysis: -HD tomorrow for clearance and volume removal -Fluid restriction of 1 liter per day -Obtain daily weights -Monitor I/O's -Renal diet -Assess dialysis needs daily Left Lower Extremity Cellulitis: - ID and Ortho consulted Chronic Hypotension: -On Midodrine -Monitor BP IBS: Diarrhea: -On Imodium Subjective Date of service: 07/24/18 Principal diagnosis: ESRD on HD Interval history: remains to have swelling and pain in legs Objective - Vital Signs Vital signs: Vital Signs - 12hr 07/23/18 07/24/18 21:32 04:59 Temperature 98.4 F 97.0 F L Pulse Rate 78 Respiratory 18 16 Rate Blood Pressure 102/65 99/60 O2 Sat by Pulse 92 Oximetry - General Appearance General appearance: well-developed, well-nourished, appears stated age EENT: ATNC, PERRL, mucous membranes moist Neck: no JVD, no carotid bruit Respiratory: Present: Clear to Ascultation. Absent: Rales, Ronchi Cardiology: regular, S1S2 Gastrointestinal: normoactive bowel sounds Integumentary: no rash, warm and dry Neurologic: no focal deficit, no asterixis, alert and oriented x3 Musculoskeletal: other (trace pitting edema in BLE) Psychiatric: mood/affect appropriate, cooperative - Lab 07/24/18 04:21 07/24/18 04:21 Most recent lab results Calcium 8.9 mg/dL (8.4-10.2) 07/24/18 04:21 Phosphorus 3.90 mg/dL (2.5-4.5) 07/23/18 04:39 Medications & Allergies - Medications Allergies/Adverse Reactions: Allergies No Known Allergies Allergy (Verified 03/08/13 12:58) Home Medications: Home Medications Medication Instructions Recorded Confirmed Last Taken Type Multivitamin Tab [Multiple Vitamin 1 each PO QDAY #30 tablet 04/17/14 07/21/18 1 Day Ago Rx TAB (Theragran)] ~07/20/18 Sevelamer Carbonate [Renvela] 4,000 mg PO TIDWM 05/29/15 07/21/18 1 Day Ago History ~07/20/18 Zolpidem [Ambien] 10 mg PO QHS PRN 05/29/15 07/21/18 1 Day Ago History ~07/20/18 ALPRAZolam [Xanax TAB] 2 mg PO TID 07/21/18 07/21/18 1 Day Ago History ~07/20/18 Methadone [Dolophine] 10 mg PO DAILY 07/21/18 07/21/18 1 Day Ago History ~07/20/18 Midodrine [Proamatine] 5 mg PO TID 07/21/18 07/21/18 1 Day Ago History ~07/20/18 Oxycodone HCl [Roxicodone TAB] 15 mg PO TID 07/21/18 07/21/18 07/20/18 History Phenergan TAB 25 tab PO DAILY 07/21/18 07/21/18 1 Day Ago History ~07/20/18 Pregabalin [Lyrica] 100 mg PO TID 07/21/18 07/21/18 1 Day Ago History ~07/20/18 Varenicline Tartrate [Chantix] 1 mg PO DAILY 07/21/18 07/21/18 1 Day Ago History ~07/20/18 tiZANidine 6 mg PO QDAY PRN 07/21/18 07/21/18 1 Day Ago History ~07/20/18 Active Medications: Generic Name Dose Route Start Last Admin Trade Name Freq PRN Reason Stop Dose Admin Acetaminophen 650 mg 07/21/18 21:42 Tylenol PO Q4H PRN Pain MILD(1-3)/Fever >100.5/WEST Albumin Human 12.5 gm 07/22/18 10:57 Alburx 25% (Albumin) IV DWIGHT PRN Hypotension Alprazolam 2 mg 07/22/18 08:00 07/24/18 07:55 Xanax PO 2 mg TID KWAME Administration Hydromorphone HCl 0.5 mg 07/21/18 21:42 07/24/18 03:58 Dilaudid IV 0.5 mg Q3H PRN Administration Pain , Severe (7-10) Sodium Chloride 100 mls @ 999 mls/hr 07/22/18 10:57 Nacl 0.9% IV DWIGHT PRN Hypotension Metronidazole 500 mg in 100 mls @ 100 mls/hr 07/22/18 14:00 07/24/18 05:23 Flagyl 500 Mg/100 Ml IV 100 mls/hr Q8HR KWAME Administration Protocol Cefepime HCl 1 gm in 100 mls @ 200 mls/hr 07/22/18 22:00 07/23/18 22:42 Maxipime/Ns 1 Gm/100 Ml IV 200 mls/hr QHS KWAME Administration Protocol Loperamide HCl 2 mg 07/22/18 11:20 07/24/18 03:58 Imodium PO 2 mg Q2H PRN Administration Diarrhea Methadone HCl 10 mg 07/22/18 10:00 07/23/18 11:58 Dolophine PO 10 mg DAILY KWAME Administration Midodrine 5 mg 07/22/18 08:00 07/24/18 07:55 Proamatine PO 5 mg TID KWAME Administration Multivitamins 1 each 07/21/18 22:00 07/23/18 11:58 Theragran Tab PO 1 each QDAY KWAME Administration Nicotine 21 mg 07/22/18 12:00 07/23/18 11:59 Habitrol TD 21 mg QDAY KWAME Administration Ondansetron HCl 4 mg 07/21/18 21:42 Zofran IV Q8H PRN Nausea And Vomiting Oxycodone/Acetaminophen 1 tab 07/21/18 21:42 Percocet 5/325 PO Q6H PRN Pain, Moderate (4-6) Pregabalin 25 mg 07/22/18 08:00 07/24/18 07:54 Lyrica PO 25 mg TID KWAME Administration Pregabalin 75 mg 07/22/18 08:00 07/24/18 07:55 Lyrica PO 75 mg TID KWAME Administration Sevelamer Carbonate 4,000 mg 07/22/18 08:00 07/24/18 07:54 Renvela PO 4,000 mg TIDWM KWAME Administration Sodium Chloride 10 ml 07/21/18 22:00 07/23/18 21:42 Sodium Chloride Flush Syringe 10 Ml IV 10 ml BID KWAME Administration Sodium Chloride 10 ml 07/21/18 21:42 Sodium Chloride Flush Syringe 10 Ml IV PRN PRN LINE FLUSH Tizanidine HCl 6 mg 07/21/18 22:13 Zanaflex PO QDAY PRN Muscle Spasm Zolpidem Tartrate 10 mg 07/21/18 22:08 Ambien PO QHS PRN Sleep
[2018-07-24] MEDS: THERAGRAN Tab PO SCH (09:27)
[2018-07-24] MEDS: HABITROL TD SCH (09:28)
[2018-07-24] MEDS: SODIUM CHLORIDE FLUSH SYRINGE 10 ML IV SCH ×4 (09:28→22:29)
[2018-07-24] MEDS: DOLOPHINE PO SCH (09:28)
[2018-07-24 10:13] LABS: Basophils % (Manual) 0 % (0.0-1.8); Eosinophils % (Manual) 0 % (0.0-4.3); Total Cells Counted 100
[2018-07-24 10:16] LABS: Hypochromasia Few; Platelet Estimate Consistent w Auto; Target Cells Few
--- NOTE | 2018-07-24 13:06 | Progress Note ---
Assessment and Plan Assessment and plan: --Left lower extremity cellulitis; and toe infection On IV vancomycin cefepime and Flagyln per ID elevate the limb, Wound Care, negative for DVT --Osteomyelitis left fifth digit; continue antibiotics, Orthopedic evaluated the patient Bilateral lower extremity arterial Doppler Vascular consult, Patient reports that he sees Dr. Taylor --Peripheral vascular disease; Vascular consult --End-stage renal disease on hemodialysis; HD per scheduled, nephrology following --Type 2 diabetes mellitus; diet controlled Accu-Chek sliding scale coverage and ADA diet Insulin as needed, HbA1c less than 5 --Hypotension; IV fluids, continue Midodrin --Hyponatremia; resolved --Irritable bowel syndrome/chronic diarrhea; Antidiarrheals, supportive care, stool for analysis if no improvement --Anemia of chronic disease and ESRD; Procrit during dialysis, closely monitor H&H --Peripheral neuropathy; Continue current medications --DVT prophylaxis. Renal dose heparin Follow consults and recommendations, Plan of care reviewed with the patient and his nurse History Interval history: Patient seen and examined medical records reviewed Patient feels slightly better no new complaints Vital signs noted Hospitalist Physical - Constitutional Vitals: Temp Pulse Resp BP Pulse Ox 97.8 F 73 16 108/65 94 07/24/18 11:46 07/24/18 11:46 07/24/18 11:46 07/24/18 11:46 07/24/18 11:46 General appearance: Present: no acute distress, well-nourished - EENT Eyes: Present: PERRL, EOM intact - Neck Neck: Present: supple, normal ROM - Respiratory Respiratory effort: labored Respiratory: bilateral: diminished, rhonchi, negative: rales, other - Cardiovascular Rhythm: regular Heart Sounds: Present: S1 & S2 - Extremities Extremities: abnormal (cellulitis, fifth digit osteomyelitis/ischemia) Extremity abnormal: edema - Abdominal General gastrointestinal: soft, non-tender, non-distended, normal bowel sounds - Integumentary Integumentary: Present: clear, warm - Psychiatric Psychiatric: appropriate mood/affect, cooperative - Neurologic Neurologic: CNII-XII intact, moves all extremities Results - Labs CBC & Chem 7: 07/24/18 04:21 07/24/18 04:21 Labs: Laboratory Last Values WBC 3.9 K/mm3 (4.5-11.0) L 07/24/18 04:21 RBC 3.58 M/mm3 (3.65-5.03) L 07/24/18 04:21 Hgb 10.9 gm/dl (11.8-15.2) L 07/24/18 04:21 Hct 33.2 % (35.5-45.6) L 07/24/18 04:21 MCV 93 fl (84-94) 07/24/18 04:21 MCH 30 pg (28-32) 07/24/18 04:21 MCHC 33 % (32-34) 07/24/18 04:21 RDW 18.5 % (13.2-15.2) H 07/24/18 04:21 Plt Count 136 K/mm3 (140-440) L 07/24/18 04:21 Lymph % (Auto) 18.0 % (13.4-35.0) 07/23/18 04:39 [place] % (Auto) Licensed Final Expense Agents 07/24/18 04:21 Eos % (Auto) 2.8 % (0.0-4.3) 07/23/18 04:39 Baso % (Auto) 0.7 % (0.0-1.8) 07/23/18 04:39 Lymph # 0.5 K/mm3 (1.2-5.4) L 07/23/18 04:39 [place] # 0.5 K/mm3 (0.0-0.8) 07/23/18 04:39 Eos # 0.1 K/mm3 (0.0-0.4) 07/23/18 04:39 Baso # 0.0 K/mm3 (0.0-0.1) 07/23/18 04:39 Add Manual Diff Complete 07/24/18 04:21 Total Counted 100 07/24/18 04:21 Seg Neutrophils % 62.8 % (40.0-70.0) 07/23/18 04:39 Seg Neuts % (Manual) 62.0 % (40.0-70.0) 07/24/18 04:21 Band Neutrophils % 0 % 07/24/18 04:21 Lymphocytes % (Manual) 21.0 % (13.4-35.0) 07/24/18 04:21 Reactive Lymphs % (Man) 1.0 % 07/24/18 04:21 Monocytes % (Manual) 16.0 % (0.0-7.3) H 07/24/18 04:21 Eosinophils % (Manual) 0 % (0.0-4.3) 07/24/18 04:21 Basophils % (Manual) 0 % (0.0-1.8) 07/24/18 04:21 Metamyelocytes % 0 % 07/24/18 04:21 Myelocytes % 0 % 07/24/18 04:21 Promyelocytes % 0 % 07/24/18 04:21 Blast Cells % 0 % 07/24/18 04:21 Nucleated RBC % Not Reportable 07/24/18 04:21 Seg Neutrophils # 1.8 K/mm3 (1.8-7.7) 07/23/18 04:39 Seg Neutrophils # Man 2.4 K/mm3 (1.8-7.7) 07/24/18 04:21 Band Neutrophils # 0.0 K/mm3 07/24/18 04:21 Lymphocytes # (Manual) 0.8 K/mm3 (1.2-5.4) L 07/24/18 04:21 Abs React Lymphs (Man) 0.0 K/mm3 07/24/18 04:21 Monocytes # (Manual) 0.6 K/mm3 (0.0-0.8) 07/24/18 04:21 Eosinophils # (Manual) 0.0 K/mm3 (0.0-0.4) 07/24/18 04:21 Basophils # (Manual) 0.0 K/mm3 (0.0-0.1) 07/24/18 04:21 Metamyelocytes # 0.0 K/mm3 07/24/18 04:21 Myelocytes # 0.0 K/mm3 07/24/18 04:21 Promyelocytes # 0.0 K/mm3 07/24/18 04:21 Blast Cells # 0.0 K/mm3 07/24/18 04:21 WBC Morphology Not Reportable 07/24/18 04:21 Hypersegmented Neuts Not Reportable 07/24/18 04:21 Hyposegmented Neuts Not Reportable 07/24/18 04:21 Hypogranular Neuts Not Reportable 07/24/18 04:21 Smudge Cells Not Reportable 07/24/18 04:21 Toxic Granulation Not Reportable 07/24/18 04:21 Toxic Vacuolation Not Reportable 07/24/18 04:21 Dohle Bodies Not Reportable 07/24/18 04:21 Pelger-Huet Anomaly Not Reportable 07/24/18 04:21 Faheem Rods Not Reportable 07/24/18 04:21 Platelet Estimate Consistent w auto 07/24/18 04:21 Clumped Platelets Not Reportable 07/24/18 04:21 Plt Clumps, EDTA Not Reportable 07/24/18 04:21 Large Platelets Not Reportable 07/24/18 04:21 Giant Platelets Not Reportable 07/24/18 04:21 Platelet Satelliting Not Reportable 07/24/18 04:21 Plt Morphology Comment Not Reportable 07/24/18 04:21 RBC Morphology Not Reportable 07/24/18 04:21 Dimorphic RBCs Not Reportable 07/24/18 04:21 Polychromasia Not Reportable 07/24/18 04:21 Hypochromasia Few 07/24/18 04:21 Poikilocytosis Not Reportable 07/24/18 04:21 Anisocytosis Not Reportable 07/24/18 04:21 Microcytosis Not Reportable 07/24/18 04:21 Macrocytosis Not Reportable 07/24/18 04:21 Spherocytes Not Reportable 07/24/18 04:21 Pappenheimer Bodies Not Reportable 07/24/18 04:21 Sickle Cells Not Reportable 07/24/18 04:21 Target Cells Few 07/24/18 04:21 Tear Drop Cells Not Reportable 07/24/18 04:21 Ovalocytes Not Reportable 07/24/18 04:21 Helmet Cells Not Reportable 07/24/18 04:21 [place] Bodies Not Reportable 07/24/18 04:21 [place] Rings Not Reportable 07/24/18 04:21 [place] Cells Not Reportable 07/24/18 04:21 Bite Cells Not Reportable 07/24/18 04:21 Crenated Cell Not Reportable 07/24/18 04:21 Elliptocytes Not Reportable 07/24/18 04:21 Acanthocytes (Spur) Not Reportable 07/24/18 04:21 Rouleaux Not Reportable 07/24/18 04:21 Hemoglobin C Crystals Not Reportable 07/24/18 04:21 Schistocytes Not Reportable 07/24/18 04:21 Malaria parasites Not Reportable 07/24/18 04:21 Carlos Bodies Not Reportable 07/24/18 04:21 Hem Pathologist Commnt No 07/24/18 04:21 Sodium 137 mmol/L (137-145) 07/24/18 04:21 Potassium 4.7 mmol/L (3.6-5.0) 07/24/18 04:21 Chloride 93.9 mmol/L (98-107) L 07/24/18 04:21 Carbon Dioxide 29 mmol/L (22-30) 07/24/18 04:21 Anion Gap 19 mmol/L 07/24/18 04:21 BUN 27 mg/dL (9-20) H 07/24/18 04:21 Creatinine 9.7 mg/dL (0.8-1.5) H 07/24/18 04:21 Estimated GFR 7 ml/min 07/24/18 04:21 BUN/Creatinine Ratio 3 % 07/24/18 04:21 Glucose 89 mg/dL (75-100) 07/24/18 04:21 POC Glucose 85 (70-105) 07/21/18 16:34 Hemoglobin A1c 4.9 % (4-6) 07/21/18 21:52 Calcium 8.9 mg/dL (8.4-10.2) 07/24/18 04:21 Phosphorus 3.90 mg/dL (2.5-4.5) 07/23/18 04:39 Total Bilirubin 0.50 mg/dL (0.1-1.2) 07/23/18 04:39 AST 25 units/L (5-40) 07/23/18 04:39 ALT 13 units/L (7-56) 07/23/18 04:39 Alkaline Phosphatase 88 units/L (35-129) 07/23/18 04:39 Total Protein 7.6 g/dL (6.3-8.2) 07/23/18 04:39 Albumin 3.8 g/dL (3.9-5) L 07/23/18 04:39 Albumin/Globulin Ratio 1.0 % 07/23/18 04:39 Random Vancomycin 15.1 ug/mL (0-40.0) 07/23/18 04:39 Active Medications - Current Medications Current Medications: Generic Name Dose Route Start Last Admin Trade Name Freq PRN Reason Stop Dose Admin Acetaminophen 650 mg 07/21/18 21:42 Tylenol PO Q4H PRN Pain MILD(1-3)/Fever >100.5/WEST Albumin Human 12.5 gm 07/22/18 10:57 Alburx 25% (Albumin) IV DWIGHT PRN Hypotension Alprazolam 2 mg 07/22/18 08:00 07/24/18 07:55 Xanax PO 2 mg TID KWAME Administration Hydromorphone HCl 0.5 mg 07/21/18 21:42 07/24/18 10:08 Dilaudid IV 0.5 mg Q3H PRN Administration Pain , Severe (7-10) Sodium Chloride 100 mls @ 999 mls/hr 07/22/18 10:57 Nacl 0.9% IV DWIGHT PRN Hypotension Metronidazole 500 mg in 100 mls @ 100 mls/hr 07/22/18 14:00 07/24/18 05:23 Flagyl 500 Mg/100 Ml IV 100 mls/hr Q8HR KWAME Administration Protocol Cefepime HCl 1 gm in 100 mls @ 200 mls/hr 07/22/18 22:00 07/23/18 22:42 Maxipime/Ns 1 Gm/100 Ml IV 200 mls/hr QHS KWAME Administration Protocol Loperamide HCl 2 mg 07/22/18 11:20 07/24/18 03:58 Imodium PO 2 mg Q2H PRN Administration Diarrhea Methadone HCl 10 mg 07/22/18 10:00 07/24/18 09:28 Dolophine PO 10 mg DAILY KWAME Administration Midodrine 5 mg 07/22/18 08:00 07/24/18 07:55 Proamatine PO 5 mg TID KWAME Administration Multivitamins 1 each 07/21/18 22:00 07/24/18 09:27 Theragran Tab PO 1 each QDAY KWAME Administration Nicotine 21 mg 07/22/18 12:00 07/24/18 09:28 Habitrol TD 21 mg QDAY KWAME Administration Ondansetron HCl 4 mg 07/21/18 21:42 Zofran IV Q8H PRN Nausea And Vomiting Oxycodone/Acetaminophen 1 tab 07/21/18 21:42 Percocet 5/325 PO Q6H PRN Pain, Moderate (4-6) Pregabalin 25 mg 07/22/18 08:00 07/24/18 07:54 Lyrica PO 25 mg TID KWAME Administration Pregabalin 75 mg 07/22/18 08:00 07/24/18 07:55 Lyrica PO 75 mg TID KWAME Administration Sevelamer Carbonate 4,000 mg 07/22/18 08:00 07/24/18 12:50 Renvela PO 4,000 mg TIDWM KWAME Administration Sodium Chloride 10 ml 07/21/18 22:00 07/24/18 09:28 Sodium Chloride Flush Syringe 10 Ml IV 10 ml BID KWAME Administration Sodium Chloride 10 ml 07/21/18 21:42 Sodium Chloride Flush Syringe 10 Ml IV PRN PRN LINE FLUSH Tizanidine HCl 6 mg 07/21/18 22:13 Zanaflex PO QDAY PRN Muscle Spasm Zolpidem Tartrate 10 mg 07/21/18 22:08 Ambien PO QHS PRN Sleep Nutrition/Malnutrition Assess - Dietary Evaluation Nutrition/Malnutrition Findings: Nutrition Notes Start: 07/22/18 14:54 Freq: Status: Active Protocol: Document 07/22/18 14:54 RM (Rec: 07/22/18 15:04 RM [id number]) Nutrition Notes Need for Assessment generated from: MST Initial or Follow up Assessment Other Pertinent Diagnosis LLE toe infection, ESRD on HD, TA Current Diet Renal Labs/Tests Reviewed Pertinent Medications Reviewed Height 6 ft 1 in Weight 90.265 kg Usual Body Weight 86 kg Ayden Body Weight (kg) 83.63 BMI 26.2 Subjective/Other Information Screened for malnutrition. Pt stated that [employer] his appetite was poor d/t self reported IBS and that he ate 1 meal daily w/some snacks ie: chips,popcorn,etc. Stated that his appetite is poor now and that he ate bites of his breakfast. Noted preferences. Declined regular ONS d/t past experience of it causing diarrhea. Admitted to diarrhea currently. Stated dry wt is 189 lbs. No temporal or orbital wasting . Percent of energy/protein needs met: 0%/0% Burn Absent Trauma Absent #1 Nutrition Diagnosis Inadequate oral intake Etiology decreased appetite As Evidenced by Signs and Symptoms pt statement that he ate bites of his breakfast Is patient on ventilator? No Is Patient Ambulatory and/or Out of Bed Yes REE-([facility]-ambulatory/OOB) [ 2354.989 [id number]] Calculation Used for Recommendations [facility] Additional Notes Protein Need: 103-112g (1.2-1. 3g/kg dry wt) Fluid Needs: 1 ml/kcal Nutrition Intervention Change Diet Order: Continue current Add Supplement/Snack (indicate name/kcal Ensure Clear Mixed [place] 1 /protein ) daily Provides kCal: 240 Provides Protein (gm) 8 Goal #1 Meet at least 75% of calorie and protein needs via PO and ONS intakes Anticipated Discharge Needs: Renal diet Follow-Up By: 07/25/18 Additional Comments Follow for PO and ONS intakes
--- NOTE | 2018-07-24 15:41 | Progress Note ---
Assessment and Plan Cultures: 07/21/2018 MRSA nasal culture: negative Chart reviewed. A/P: 53-year-old male with ESRD on hemodialysis, diet and exercise controlled diabetes mellitus, peripheral neuropathy, prior MRSA bacteremia in 02/2014 and 04/2013. Now with: 1) Left lower extremity cellulitis with underlying acute osteomyelitis of the left fifth toe: Continue empiric antibiotics. Toe appears ischemic. MRI images reviewed, concerning for OM of 5th toe. 2) ESRD: On hemodialysis. Renally dose antibiotics. 3) Peripheral neuropathy 4) Peripheral vascular disease: arterial duplex with atherosclerotic disease. Recs: continue Cefepime, Vancomycin and Flagyl patient sees Dr. Taylor as outpatient, recommend vascular consult in AM D/W Dr. Ramirez and with patient James Hunt MD [facility] C: [phone] O: [phone] F: [phone] Subjective Date of service: 07/24/18 Principal diagnosis: ESRD on HD Interval history: No fever. Had MRI done. Tolerating abx well. No rash. No nausea, vomiting, no loose watery stools. Objective - Exam Narrative Exam: Physical Exam: Constitutional: Alert, cooperative. No acute distress Head, Ears, Nose: Normocephalic, atraumatic. External ears, nose normal Eyes: Conjunctivae/corneas clear. No icterus. No ptosis. Neck: Supple, no meningeal signs Oral: dentition several missing teeth, no thrush Cardiovascular: S1, S2 normal. Respiratory: Good air entry, clear to auscultation bilaterally GI: Soft, non-tender; bowel sounds normal. No peritoneal signs Musculoskeletal: LLE with edema of foot, toes extending to mid-coates. 5th toe with dressing. Skin: No rash or abscess Hem/Lymphatic: No palpable cervical or supraclavicular nodes. No lymphangitis Psych: Mood ok. Affect normal Neurological: Awake, alert, oriented. No gross abnormality - Constitutional Vitals: Vital Signs Temp Pulse Resp BP Pulse Ox 97.8 F 73 16 108/65 94 07/24/18 11:46 07/24/18 11:46 07/24/18 11:46 07/24/18 11:46 07/24/18 11:46 Temperature -Last 24 Hours Temperature 97.8 F Temperature 97.0 F Temperature 98.4 F Temperature 97.9 F - Labs CBC & Chem 7: 07/24/18 04:21 07/24/18 04:21 Labs: Abnormal lab results 07/24/18 07/24/18 Range/Units 04:21 04:21 WBC 3.9 L (4.5-11.0) K/mm3 RBC 3.58 L (3.65-5.03) M/mm3 Hgb 10.9 L (11.8-15.2) gm/dl Hct 33.2 L (35.5-45.6) % RDW 18.5 H (13.2-15.2) % Plt Count 136 L (140-440) K/mm3 Monocytes % (Manual) 16.0 H (0.0-7.3) % Lymphocytes # (Manual) 0.8 L (1.2-5.4) K/mm3 Chloride 93.9 L (98-107) mmol/L BUN 27 H (9-20) mg/dL Creatinine 9.7 H (0.8-1.5) mg/dL
[2018-07-24] MEDS: HEPARIN SUB-Q SCH (21:06)
[2018-07-24] MEDS: MAXIPIME/NS 1 GM/100 ML 1 GM/100 ML BAG IV SCH (22:28)
[2018-07-25 05:39] LABS: Basophils % (Auto) 0.5 % (0.0-1.8); Eosinophils # (Auto) 0.1 K/mm3 (0.0-0.4); Eosinophils % (Auto) 2.4 % (0.0-4.3); Hematocrit 35.1 % (35.5-45.6); Hemoglobin 11.6 gm/dl (11.8-15.2); Lymphocytes # (Auto) 0.8 K/mm3 (1.2-5.4); Lymphocytes % (Auto) 21.1 % (13.4-35.0); Mean Corpuscular HGB Conc 33 % (32-34); Mean Corpuscular Volume 93 fl (84-94); Monocytes # (Auto) 0.5 K/mm3 (0.0-0.8); Monocytes % (Auto) 12.8 % (0.0-7.3); Platelet Count 125 K/mm3 (140-440); Red Blood Count 3.79 M/mm3 (3.65-5.03); Red Cell Distribution Width 18.7 % (13.2-15.2)
[2018-07-25] MEDS: FLAGYL 500 MG/100 ML 500 MG/100 ML BAG IV SCH ×3 (05:43→22:01)
[2018-07-25 05:56] LABS: Calcium 8.9 mg/dL (8.4-10.2)
[2018-07-25] MEDS: DILAUDID IV PRN ×3 (06:06→22:24)
[2018-07-25] MEDS: RENVELA PO SCH ×3 (08:23→17:04)
[2018-07-25] MEDS: XANAX PO SCH ×3 (08:23→22:00)
[2018-07-25] MEDS: PROAMATINE PO SCH ×3 (08:24→22:03)
[2018-07-25] MEDS: LYRICA PO SCH ×6 (08:24→22:01)
[2018-07-25] MEDS: ASPIRIN PO SCH (10:04)
[2018-07-25] MEDS: THERAGRAN Tab PO SCH (10:04)
[2018-07-25] MEDS: HABITROL TD SCH (10:04)
[2018-07-25] MEDS: DOLOPHINE PO SCH (10:05)
[2018-07-25] MEDS: HEPARIN SUB-Q SCH ×2 (10:06→22:02)
[2018-07-25] MEDS: SODIUM CHLORIDE FLUSH SYRINGE 10 ML IV SCH ×2 (10:06→22:02)
--- NOTE | 2018-07-25 10:47 | Progress Note ---
Assessment and Plan Cultures: 07/21/2018 MRSA nasal culture: negative A/P: 53-year-old male with ESRD on hemodialysis, diet and exercise controlled diabetes mellitus, peripheral neuropathy, prior MRSA bacteremia in 02/2014 and 04/2013. Now with: 1) Left lower extremity cellulitis with underlying acute osteomyelitis of the left fifth toe: Continue empiric antibiotics. Toe appears ischemic. MRI images reviewed, concerning for OM of 5th toe. Wound culture obtained from left 5th toe. Vascular following. 2) ESRD: On hemodialysis. Renally dose antibiotics. 3) Peripheral neuropathy 4) Peripheral vascular disease: arterial duplex with atherosclerotic disease. Recs: continue Cefepime 1 gm IV Q pm, D3 continue IV Vancomycin PK dosing, target trough 10-20 mcg/ml continue Flagyl 500 mg IV every 8 hours, D3 follow up wound culture Wound care consult ordered [facility] M: [phone] O:[phone] Subjective Date of service: 07/25/18 Principal diagnosis: ESRD on HD Interval history: Patient seen and examined. Receiving HD, Wound culture collected from Left fifth toe. No fevers. Objective - Exam Narrative Exam: Physical Exam: Constitutional: Alert, cooperative. No acute distress Head, Ears, Nose: Normocephalic, atraumatic. External ears, nose normal Eyes: Conjunctivae/corneas clear. No icterus. No ptosis. Neck: Supple, no meningeal signs Oral: dentition several missing teeth, no thrush Cardiovascular: S1, S2 normal. Respiratory: Good air entry, clear to auscultation bilaterally GI: Soft, non-tender; bowel sounds normal. No peritoneal signs Musculoskeletal: LLE with edema of foot, toes extending to mid-coates. 5th toe with dressing. Skin: No rash or abscess Hem/Lymphatic: No palpable cervical or supraclavicular nodes. No lymphangitis Psych: Mood ok. Affect normal Neurological: Awake, alert, oriented. No gross abnormality - Constitutional Vitals: Vital Signs Temp Pulse Resp BP Pulse Ox 97.4 F L 69 18 128/86 91 07/25/18 05:33 07/25/18 05:33 07/25/18 06:36 07/25/18 05:33 07/25/18 05:33 Temperature -Last 24 Hours Temperature 97.4 F Temperature 97.4 F Temperature 97.4 F Temperature 97.8 F - Labs CBC & Chem 7: 07/25/18 04:44 07/25/18 04:44 Labs: Abnormal lab results 07/25/18 07/25/18 Range/Units 04:44 04:44 WBC 3.6 L (4.5-11.0) K/mm3 Hgb 11.6 L (11.8-15.2) gm/dl Hct 35.1 L (35.5-45.6) % RDW 18.7 H (13.2-15.2) % Plt Count 125 L (140-440) K/mm3 [place] % (Auto) 12.8 H (0.0-7.3) % Lymph # 0.8 L (1.2-5.4) K/mm3 Potassium 5.2 H (3.6-5.0) mmol/L Chloride 93.6 L (98-107) mmol/L BUN 32 H (9-20) mg/dL Creatinine 11.1 H (0.8-1.5) mg/dL Glucose 120 H (75-100) mg/dL
--- NOTE | 2018-07-25 11:02 | Progress Note ---
Assessment and Plan End Stage Renal Disease on Hemodialysis: -HD today for clearance and volume removal -Fluid restriction of 1 liter per day -Obtain daily weights -Monitor I/O's -Renal diet -Assess dialysis needs daily Left Lower Extremity Cellulitis: - ID and Ortho consulted Chronic Hypotension: -On Midodrine -Monitor BP IBS: Diarrhea: -On Imodium Subjective Date of service: 07/25/18 Principal diagnosis: ESRD on HD Interval history: tolerating HD this AM Objective - Vital Signs Vital signs: Vital Signs - 12hr 07/24/18 07/24/18 07/25/18 23:08 23:12 05:33 Temperature 97.4 F L 97.4 F L Pulse Rate 65 69 Respiratory 18 16 16 Rate Blood Pressure 136/86 128/86 O2 Sat by Pulse 96 91 Oximetry 07/25/18 07/25/18 06:06 06:36 Temperature Pulse Rate Respiratory 18 18 Rate Blood Pressure O2 Sat by Pulse Oximetry - General Appearance General appearance: well-developed, well-nourished, appears stated age EENT: ATNC, PERRL, mucous membranes moist Neck: no JVD, no carotid bruit Respiratory: Present: Clear to Ascultation. Absent: Rales, Ronchi Cardiology: regular, S1S2 Gastrointestinal: normoactive bowel sounds, no tenderness, no distended Integumentary: no rash, warm and dry Neurologic: no focal deficit, no asterixis, alert and oriented x3 Musculoskeletal: other (trace pitting edema in BLE) Psychiatric: mood/affect appropriate, cooperative - Lab 07/25/18 04:44 07/25/18 04:44 Most recent lab results Calcium 8.9 mg/dL (8.4-10.2) 07/25/18 04:44 Phosphorus 3.90 mg/dL (2.5-4.5) 07/23/18 04:39 Medications & Allergies - Medications Allergies/Adverse Reactions: Allergies No Known Allergies Allergy (Verified 03/08/13 12:58) Home Medications: Home Medications Medication Instructions Recorded Confirmed Last Taken Type Multivitamin Tab [Multiple Vitamin 1 each PO QDAY #30 tablet 04/17/14 07/21/18 1 Day Ago Rx TAB (Theragran)] ~07/20/18 Sevelamer Carbonate [Renvela] 4,000 mg PO TIDWM 05/29/15 07/21/18 1 Day Ago History ~07/20/18 Zolpidem [Ambien] 10 mg PO QHS PRN 05/29/15 07/21/18 1 Day Ago History ~07/20/18 ALPRAZolam [Xanax TAB] 2 mg PO TID 07/21/18 07/21/18 1 Day Ago History ~07/20/18 Methadone [Dolophine] 10 mg PO DAILY 07/21/18 07/21/18 1 Day Ago History ~07/20/18 Midodrine [Proamatine] 5 mg PO TID 07/21/18 07/21/18 1 Day Ago History ~07/20/18 Oxycodone HCl [Roxicodone TAB] 15 mg PO TID 07/21/18 07/21/18 07/20/18 History Phenergan TAB 25 tab PO DAILY 07/21/18 07/21/18 1 Day Ago History ~07/20/18 Pregabalin [Lyrica] 100 mg PO TID 07/21/18 07/21/18 1 Day Ago History ~07/20/18 Varenicline Tartrate [Chantix] 1 mg PO DAILY 07/21/18 07/21/18 1 Day Ago History ~07/20/18 tiZANidine 6 mg PO QDAY PRN 07/21/18 07/21/18 1 Day Ago History ~07/20/18 Active Medications: Generic Name Dose Route Start Last Admin Trade Name Freq PRN Reason Stop Dose Admin Acetaminophen 650 mg 07/21/18 21:42 Tylenol PO Q4H PRN Pain MILD(1-3)/Fever >100.5/WEST Albumin Human 12.5 gm 07/22/18 10:57 Alburx 25% (Albumin) IV DWIGHT PRN Hypotension Alprazolam 2 mg 07/22/18 08:00 07/25/18 08:23 Xanax PO 2 mg TID KWAME Administration Aspirin 325 mg 07/25/18 10:00 07/25/18 10:04 Aspirin PO 325 mg QDAY KWAME Administration Heparin Sodium (Porcine) 5,000 unit 07/24/18 22:00 07/25/18 10:06 Heparin SUB-Q 5,000 unit Q12HR KWAME Administration Hydromorphone HCl 0.5 mg 07/21/18 21:42 07/25/18 10:41 Dilaudid IV 0.5 mg Q3H PRN Administration Pain , Severe (7-10) Sodium Chloride 100 mls @ 999 mls/hr 07/22/18 10:57 Nacl 0.9% IV DWIGHT PRN Hypotension Metronidazole 500 mg in 100 mls @ 100 mls/hr 07/22/18 14:00 07/25/18 05:43 Flagyl 500 Mg/100 Ml IV 100 mls/hr Q8HR KWAME Administration Protocol Cefepime HCl 1 gm in 100 mls @ 200 mls/hr 07/22/18 22:00 07/24/18 22:28 Maxipime/Ns 1 Gm/100 Ml IV 200 mls/hr QHS KWAME Administration Protocol Vancomycin HCl 1 gm in 250 mls @ 167.007 mls/hr 07/25/18 16:00 Vancomycin/Ns 1 Gm/250 Ml IV 07/25/18 17:29 ONCE ONE Loperamide HCl 2 mg 07/22/18 11:20 07/24/18 03:58 Imodium PO 2 mg Q2H PRN Administration Diarrhea Methadone HCl 10 mg 07/22/18 10:00 07/25/18 10:05 Dolophine PO Not Given DAILY KWAME Midodrine 5 mg 07/22/18 08:00 07/25/18 08:24 Proamatine PO 5 mg TID KWAME Administration Multivitamins 1 each 07/21/18 22:00 07/25/18 10:04 Theragran Tab PO 1 each QDAY KWAME Administration Nicotine 21 mg 07/22/18 12:00 07/25/18 10:04 Habitrol TD 21 mg QDAY KWAME Administration Ondansetron HCl 4 mg 07/21/18 21:42 Zofran IV Q8H PRN Nausea And Vomiting Oxycodone/Acetaminophen 1 tab 07/21/18 21:42 Percocet 5/325 PO Q6H PRN Pain, Moderate (4-6) Pregabalin 25 mg 07/22/18 08:00 07/25/18 08:24 Lyrica PO 25 mg TID KWAME Administration Pregabalin 75 mg 07/22/18 08:00 07/25/18 08:24 Lyrica PO 75 mg TID KWAME Administration Sevelamer Carbonate 4,000 mg 07/22/18 08:00 07/25/18 08:23 Renvela PO 4,000 mg TIDWM KWAME Administration Sodium Chloride 10 ml 07/21/18 22:00 07/25/18 10:06 Sodium Chloride Flush Syringe 10 Ml IV 10 ml BID KWAME Administration Sodium Chloride 10 ml 07/21/18 21:42 Sodium Chloride Flush Syringe 10 Ml IV PRN PRN LINE FLUSH Tizanidine HCl 6 mg 07/21/18 22:13 Zanaflex PO QDAY PRN Muscle Spasm Zolpidem Tartrate 10 mg 07/21/18 22:08 Ambien PO QHS PRN Sleep
--- NOTE | 2018-07-25 11:35 | Consultation ---
History of Present Illness - Reason for Consult Consult date: 07/25/18 PAD with Ulceration Requesting physician: TREV CASTRO - History of Present Illness This pt is a 53yo AAM admitted via the [facility] ER on 07/21/18 due to L 5th toe infection and cellulites. He is known to our service as he has ESRD on HD through a RUE AVG. The pt developed a callus to his right foot and removed the dry skin. The resultant wound has failed to heal over the last 2 weeks. He was evaluated by his PCP, who recommended he go to the ER where he has since been admitted. An ID and Ortho consult were placed. An arterial duplex was ordered and was reported as: Atherosclerotic vascular disease involving the arteries of the lower extremities bilaterally, left greater than right, without evidence of occlusion or hemodynamically significant stenoses in the lower extremities. A vascular surgery consult is requested to further evaluate. Past History Past Medical History: anemia, diabetes, dialysis, ESRD, hypertension, renal failure, other (IBS, Chronic Hypotension, history of multiple MRSA infections/abscess) Past Surgical History: Other (bowel surgery, left upper extremity AV graft removed due to infection, attempted AV fistula left upper extremity, evacuation of hematoma/seroma, Creation of Right Brachial Artery to Axillary Vein AV Graft with Cryo-Superficial Femoral Vein in 2013, He's had multiple fistulagrams since that time, Spinal surgery, eye surgery) Social history: no significant social history Family history: hypertension Medications and Allergies Allergies Allergy/AdvReac Type Severity Reaction Status Date / Time No Known Allergies Allergy Verified 03/08/13 12:58 Home Medications Medication Instructions Recorded Confirmed Last Taken Type Multivitamin Tab [Multiple Vitamin 1 each PO QDAY #30 tablet 04/17/14 07/21/18 1 Day Ago Rx TAB (Theragran)] ~07/20/18 Sevelamer Carbonate [Renvela] 4,000 mg PO TIDWM 05/29/15 07/21/18 1 Day Ago History ~07/20/18 Zolpidem [Ambien] 10 mg PO QHS PRN 05/29/15 07/21/18 1 Day Ago History ~07/20/18 ALPRAZolam [Xanax TAB] 2 mg PO TID 07/21/18 07/21/18 1 Day Ago History ~07/20/18 Methadone [Dolophine] 10 mg PO DAILY 07/21/18 07/21/18 1 Day Ago History ~07/20/18 Midodrine [Proamatine] 5 mg PO TID 07/21/18 07/21/18 1 Day Ago History ~07/20/18 Oxycodone HCl [Roxicodone TAB] 15 mg PO TID 07/21/18 07/21/18 07/20/18 History Phenergan TAB 25 tab PO DAILY 07/21/18 07/21/18 1 Day Ago History ~07/20/18 Pregabalin [Lyrica] 100 mg PO TID 07/21/18 07/21/18 1 Day Ago History ~07/20/18 Varenicline Tartrate [Chantix] 1 mg PO DAILY 07/21/18 07/21/18 1 Day Ago History ~07/20/18 tiZANidine 6 mg PO QDAY PRN 07/21/18 07/21/18 1 Day Ago History ~07/20/18 Active Meds: Active Medications Acetaminophen (Tylenol) 650 mg PO Q4H PRN PRN Reason: Pain MILD(1-3)/Fever >100.5/WEST Albumin Human (Alburx 25% (Albumin)) 12.5 gm IV DWGIHT PRN PRN Reason: Hypotension Alprazolam (Xanax) 2 mg PO TID [facility] Last Admin: 07/25/18 08:23 Dose: 2 mg Documented by: Aspirin (Aspirin) 325 mg PO QDAY [facility] Last Admin: 07/25/18 10:04 Dose: 325 mg Documented by: Heparin Sodium (Porcine) (Heparin) 5,000 unit SUB-Q Q12HR [facility] Last Admin: 07/25/18 10:06 Dose: 5,000 unit Documented by: Hydromorphone HCl (Dilaudid) 0.5 mg IV Q3H PRN PRN Reason: Pain , Severe (7-10) Last Admin: 07/25/18 10:41 Dose: 0.5 mg Documented by: Sodium Chloride (Nacl 0.9%) 100 mls @ 999 mls/hr IV DWIGHT PRN PRN Reason: Hypotension Metronidazole (Flagyl 500 Mg/100 Ml) 500 mg in 100 mls @ 100 mls/hr IV Q8HR [facility]; Protocol Last Admin: 07/25/18 05:43 Dose: 100 mls/hr Documented by: Cefepime HCl (Maxipime/Ns 1 Gm/100 Ml) 1 gm in 100 mls @ 200 mls/hr IV QHS [facility]; Protocol Last Admin: 07/24/18 22:28 Dose: 200 mls/hr Documented by: Vancomycin HCl (Vancomycin/Ns 1 Gm/250 Ml) 1 gm in 250 mls @ 167.007 mls/hr IV ONCE ONE Stop: 07/25/18 17:29 Loperamide HCl (Imodium) 2 mg PO Q2H PRN PRN Reason: Diarrhea Last Admin: 07/24/18 03:58 Dose: 2 mg Documented by: Methadone HCl (Dolophine) 10 mg PO DAILY [facility] Last Admin: 07/25/18 10:05 Dose: Not Given Documented by: Midodrine (Proamatine) 5 mg PO TID [facility] Last Admin: 07/25/18 08:24 Dose: 5 mg Documented by: Multivitamins (Theragran Tab) 1 each PO QDAY [facility] Last Admin: 07/25/18 10:04 Dose: 1 each Documented by: Nicotine (Habitrol) 21 mg TD QDAY [facility] Last Admin: 07/25/18 10:04 Dose: 21 mg Documented by: Ondansetron HCl (Zofran) 4 mg IV Q8H PRN PRN Reason: Nausea And Vomiting Oxycodone/Acetaminophen (Percocet 5/325) 1 tab PO Q6H PRN PRN Reason: Pain, Moderate (4-6) Pregabalin (Lyrica) 25 mg PO TID [facility] Last Admin: 07/25/18 08:24 Dose: 25 mg Documented by: Pregabalin (Lyrica) 75 mg PO TID [facility] Last Admin: 07/25/18 08:24 Dose: 75 mg Documented by: Sevelamer Carbonate (Renvela) 4,000 mg PO TIDWM [facility] Last Admin: 07/25/18 08:23 Dose: 4,000 mg Documented by: Sodium Chloride (Sodium Chloride Flush Syringe 10 Ml) 10 ml IV BID [facility] Last Admin: 07/25/18 10:06 Dose: 10 ml Documented by: Sodium Chloride (Sodium Chloride Flush Syringe 10 Ml) 10 ml IV PRN PRN PRN Reason: LINE FLUSH Tizanidine HCl (Zanaflex) 6 mg PO QDAY PRN PRN Reason: Muscle Spasm Zolpidem Tartrate (Ambien) 10 mg PO QHS PRN PRN Reason: Sleep Review of Systems All systems: negative Exam - Constitutional Vitals: Temp Pulse Resp BP Pulse Ox 97.4 F L 69 18 128/86 91 07/25/18 05:33 07/25/18 05:33 07/25/18 06:36 07/25/18 05:33 07/25/18 05:33 General appearance: Present: no acute distress - EENT Eyes: Present: EOM intact ENT: hearing intact - Neck Neck: Present: supple - Respiratory Respiratory effort: normal - Extremities Extremities: normal temperature (easily palpable DP on the left) Extremity abnormal: edema (left 5th toe swelling with a small lateral ulceration, surrounding mascerated skin with skin tearing, ring of blanched tissue around the base of the toe, the distal tip of the 5th toe with early chelle iccation and cyanosis. See pictures) - Psychiatric Psychiatric: appropriate mood/affect, intact judgment & insight, cooperative - Neurologic Neurologic: no focal deficits - Additional findings Additional findings: Results - Labs CBC & Chem 7: 07/25/18 04:44 07/25/18 04:44 Labs: Abnormal lab results 07/25/18 07/25/18 Range/Units 04:44 04:44 WBC 3.6 L (4.5-11.0) K/mm3 Hgb 11.6 L (11.8-15.2) gm/dl Hct 35.1 L (35.5-45.6) % RDW 18.7 H (13.2-15.2) % Plt Count 125 L (140-440) K/mm3 [place] % (Auto) 12.8 H (0.0-7.3) % Lymph # 0.8 L (1.2-5.4) K/mm3 Potassium 5.2 H (3.6-5.0) mmol/L Chloride 93.6 L (98-107) mmol/L BUN 32 H (9-20) mg/dL Creatinine 11.1 H (0.8-1.5) mg/dL Glucose 120 H (75-100) mg/dL [facility] [address] [place] [address] Vascular Lab Report Signed Patient: SHAMA FARRELL#: [id number] : 1965Acct:[id number] Age/Sex: 53 / MADM Date: 07/21/18 Loc: 3A A353-[address]: TREV CASTRO MD Ordering Physician: DEANNA ISLAS MD Date of Service: 07/22/18 Procedure(s): arterial duplex LE BILAT Accession Number(s): [id number] cc: DEANNA ISLAS MD~ PROCEDURE: ARTERIAL DUPLEX LE BILAT TECHNIQUE: Grayscale, color flow and Doppler waveform imaging of the arterial structures of the lower extremities was performed. HISTORY: Left toe infection history of end-stage renal disease. COMPARISONS: None FINDINGS: There is demonstration of antegrade flow in the arterial structures of the lower extremities bilaterally from the common femoral arteries to the dorsalis pedis arteries. There is no evidence of occlusion or hemodynamically significant stenosis. There is evidence of atherosclerotic vascular disease with plaque formation in the arteries of the lower extremities bilaterally, left greater than right. Peak systolic velocities are as follows (centimeters per second): Right lower extremity: Distal external iliac artery: 80, triphasic Common femoral artery: 75, triphasic Proximal superficial femoral artery: 88, triphasic Deep femoral artery: 63, triphasic Mid superficial femoral artery: 68, triphasic Distal superficial femoral artery: 79, triphasic Popliteal artery: 58, triphasic Posterior tibial artery: 45, biphasic Anterior tibial artery: 53, biphasic Dorsalis pedis artery: 39, biphasic Left lower extremity: Distal external iliac artery: 139, monophasic Common femoral artery: 104, monophasic Proximal superficial femoral artery: 109, monophasic Deep femoral artery: 83, biphasic Mid superficial femoral artery: 109, monophasic Distal superficial femoral artery: 132, monophasic Popliteal artery: 124, monophasic Posterior tibial artery: 49, monophasic Anterior tibial artery: 62, monophasic Dorsalis pedis artery: 65, monophasic IMPRESSION: Imaging [id number] Patient name: SHAMA FARRELL 2 of 2 1. Atherosclerotic vascular disease involving the arteries of the lower extremities bilaterally, left greater than right, without evidence of occlusion or hemodynamically significant stenoses in the lower extremities. This document is electronically signed by Asia Fraga MD., July 22 2018 05:17:42 PM ET Transcribed By: ED Dictated By: ASIA FRAGA MD Electronically Authenticated By: ASIA FRAGA MD Signed Date/Time: 07/22/189 DD/ 16 TD/TT: 07/22/18 1618 Imaging [id number] Assessment and Plan This pt was admitted with a left 5th toe ulceration, cellulitis, and osteomylitis. He is followed by Ortho and ID. An arterial duplex suggest BLE arterial disease (L>R, with monophasic flow th roughout the left lower extremity, but without evidence of occlusion or hemodynamically significant stenoses in either lower extremity). A vascular surgery consult was requested to further evaluate. This study did not include an CHONG. I will add an order for this. Though the pt has an easily palpable left DP, and suspect he has adequate arterial flow for distal wound healing. Await results, with recommendations to follow. Pt appears to have fairly significant tissue destruction to his left 5th toe. Will defer salvageability to Ortho and ID with antibiotics alone, or if he will need further surgical intervention. - Patient Problems (1) Atherosclerosis of [place] arteries of the extremities with ulceration Current Visit: Yes Status: Acute (2) Osteomyelitis Current Visit: No Status: Acute (3) End stage renal disease on dialysis Current Visit: No Status: Chronic (4) End-stage renal disease on hemodialysis Current Visit: No Status: Chronic
--- NOTE | 2018-07-25 15:53 | Vascular Lab Report ---
PROCEDURE: VL CHONG EVALUATION TECHNIQUE: Ankle brachial index evaluation. Segmental Doppler pressures obtained at ankles and toes. Brachial pressure obtained. HISTORY: pvd with ulceration COMPARISON: None FINDINGS: In the arterial pressures at the ankle are higher than brachial pressures. On the right, the higher a nkle pressure is 184 mmHg as compared to brachial pressure of 138 mmHg. This corresponds to an ankle- brachial index of 1.33. On the right, the highest ankle pressure is 1 64 mmHg which corresponds to an kle-brachial index of 1.19. Toe pressures obtained are elevated as well, 255 mmHg bilaterally. IMPRESSION: Mildly increased ankle pressures as compared to brachial pressures. This is suggestive o f calcified stiff vasculature. Right CHONG is 1.33. Left CHONG is 1.19. This document is electronically signed by Marisa Cantu MD., July 25 2018 03:50:46 PM ET
[2018-07-25] MEDS ORDERED: VANCOMYCIN/NS 1 GM/250 ML 1 GM/250 ML BAG IV ONE (16:00)
[2018-07-25] MEDS ORDERED: NACL 0.9 (PRIMING MACHINE ONLY DIALYSIS) MC ONE (17:09)
--- NOTE | 2018-07-25 18:42 | Progress Note ---
Assessment and Plan Assessment and plan: -Left lower extremity cellulitis; and toe infection On IV vancomycin cefepime and Flagyln per ID elevate the limb, Wound Care, negative for DVT --Osteomyelitis left fifth digit; continue antibiotics, Orthopedic evaluated the patient Bilateral lower extremity arterial Doppler Vascular consult, Patient reports that he sees Dr. Taylor Surgery consult --Peripheral vascular disease; Vascular consult --End-stage renal disease on hemodialysis; HD per scheduled, nephrology following --Type 2 diabetes mellitus; diet controlled Accu-Chek sliding scale coverage and ADA diet Insulin as needed, HbA1c less than 5 --Hypotension; IV fluids, continue Midodrin --Hyponatremia; resolved --Irritable bowel syndrome/chronic diarrhea; Antidiarrheals, supportive care, stool for analysis if no improvement --Anemia of chronic disease and ESRD; Procrit during dialysis, closely monitor H&H --Peripheral neuropathy; Continue current medications --DVT prophylaxis. Renal dose heparin Follow consults and recommendations, Plan of care reviewed with the patient and his nurse History Interval history: Patient seen and examined medical records reviewed Patient is receiving hemodialysis today Vascular evaluation and recommendations noted and appreciated Vital signs noted Hospitalist Physical - Constitutional Vitals: Temp Pulse Resp BP Pulse Ox 99.0 F 88 16 90/50 91 07/25/18 14:05 07/25/18 14:05 07/25/18 14:05 07/25/18 14:05 07/25/18 05:33 General appearance: Present: no acute distress, well-nourished - EENT Eyes: Present: PERRL, EOM intact - Neck Neck: Present: supple, normal ROM - Respiratory Respiratory effort: normal Respiratory: bilateral: diminished, negative: rales, rhonchi, wheezing - Cardiovascular Rhythm: regular Heart Sounds: Present: S1 & S2 - Extremities Extremities: no ischemia, No edema, abnormal (foot dressing in place) - Abdominal General gastrointestinal: soft, non-tender, non-distended, normal bowel sounds - Integumentary Integumentary: Present: clear, warm - Psychiatric Psychiatric: appropriate mood/affect, cooperative - Neurologic Neurologic: CNII-XII intact, moves all extremities Results - Labs CBC & Chem 7: 07/26/18 04:42 07/26/18 04:42 Labs: Laboratory Last Values WBC 3.6 K/mm3 (4.5-11.0) L 07/25/18 04:44 RBC 3.79 M/mm3 (3.65-5.03) 07/25/18 04:44 Hgb 11.6 gm/dl (11.8-15.2) L 07/25/18 04:44 Hct 35.1 % (35.5-45.6) L 07/25/18 04:44 MCV 93 fl (84-94) 07/25/18 04:44 MCH 31 pg (28-32) 07/25/18 04:44 MCHC 33 % (32-34) 07/25/18 04:44 RDW 18.7 % (13.2-15.2) H 07/25/18 04:44 Plt Count 125 K/mm3 (140-440) L 07/25/18 04:44 Lymph % (Auto) 21.1 % (13.4-35.0) 07/25/18 04:44 [place] % (Auto) 12.8 % (0.0-7.3) H 07/25/18 04:44 Eos % (Auto) 2.4 % (0.0-4.3) 07/25/18 04:44 Baso % (Auto) 0.5 % (0.0-1.8) 07/25/18 04:44 Lymph # 0.8 K/mm3 (1.2-5.4) L 07/25/18 04:44 [place] # 0.5 K/mm3 (0.0-0.8) 07/25/18 04:44 Eos # 0.1 K/mm3 (0.0-0.4) 07/25/18 04:44 Baso # 0.0 K/mm3 (0.0-0.1) 07/25/18 04:44 Add Manual Diff Complete 07/24/18 04:21 Total Counted 100 07/24/18 04:21 Seg Neutrophils % 63.2 % (40.0-70.0) 07/25/18 04:44 Seg Neuts % (Manual) 62.0 % (40.0-70.0) 07/24/18 04:21 Band Neutrophils % 0 % 07/24/18 04:21 Lymphocytes % (Manual) 21.0 % (13.4-35.0) 07/24/18 04:21 Reactive Lymphs % (Man) 1.0 % 07/24/18 04:21 Monocytes % (Manual) 16.0 % (0.0-7.3) H 07/24/18 04:21 Eosinophils % (Manual) 0 % (0.0-4.3) 07/24/18 04:21 Basophils % (Manual) 0 % (0.0-1.8) 07/24/18 04:21 Metamyelocytes % 0 % 07/24/18 04:21 Myelocytes % 0 % 07/24/18 04:21 Promyelocytes % 0 % 07/24/18 04:21 Blast Cells % 0 % 07/24/18 04:21 Nucleated RBC % Not Reportable 07/24/18 04:21 Seg Neutrophils # 2.3 K/mm3 (1.8-7.7) 07/25/18 04:44 Seg Neutrophils # Man 2.4 K/mm3 (1.8-7.7) 07/24/18 04:21 Band Neutrophils # 0.0 K/mm3 07/24/18 04:21 Lymphocytes # (Manual) 0.8 K/mm3 (1.2-5.4) L 07/24/18 04:21 Abs React Lymphs (Man) 0.0 K/mm3 07/24/18 04:21 Monocytes # (Manual) 0.6 K/mm3 (0.0-0.8) 07/24/18 04:21 Eosinophils # (Manual) 0.0 K/mm3 (0.0-0.4) 07/24/18 04:21 Basophils # (Manual) 0.0 K/mm3 (0.0-0.1) 07/24/18 04:21 Metamyelocytes # 0.0 K/mm3 07/24/18 04:21 Myelocytes # 0.0 K/mm3 07/24/18 04:21 Promyelocytes # 0.0 K/mm3 07/24/18 04:21 Blast Cells # 0.0 K/mm3 07/24/18 04:21 WBC Morphology Not Reportable 07/24/18 04:21 Hypersegmented Neuts Not Reportable 07/24/18 04:21 Hyposegmented Neuts Not Reportable 07/24/18 04:21 Hypogranular Neuts Not Reportable 07/24/18 04:21 Smudge Cells Not Reportable 07/24/18 04:21 Toxic Granulation Not Reportable 07/24/18 04:21 Toxic Vacuolation Not Reportable 07/24/18 04:21 Dohle Bodies Not Reportable 07/24/18 04:21 Pelger-Huet Anomaly Not Reportable 07/24/18 04:21 Faheem Rods Not Reportable 07/24/18 04:21 Platelet Estimate Consistent w auto 07/24/18 04:21 Clumped Platelets Not Reportable 07/24/18 04:21 Plt Clumps, EDTA Not Reportable 07/24/18 04:21 Large Platelets Not Reportable 07/24/18 04:21 Giant Platelets Not Reportable 07/24/18 04:21 Platelet Satelliting Not Reportable 07/24/18 04:21 Plt Morphology Comment Not Reportable 07/24/18 04:21 RBC Morphology Not Reportable 07/24/18 04:21 Dimorphic RBCs Not Reportable 07/24/18 04:21 Polychromasia Not Reportable 07/24/18 04:21 Hypochromasia Few 07/24/18 04:21 Poikilocytosis Not Reportable 07/24/18 04:21 Anisocytosis Not Reportable 07/24/18 04:21 Microcytosis Not Reportable 07/24/18 04:21 Macrocytosis Not Reportable 07/24/18 04:21 Spherocytes Not Reportable 07/24/18 04:21 Pappenheimer Bodies Not Reportable 07/24/18 04:21 Sickle Cells Not Reportable 07/24/18 04:21 Target Cells Few 07/24/18 04:21 Tear Drop Cells Not Reportable 07/24/18 04:21 Ovalocytes Not Reportable 07/24/18 04:21 Helmet Cells Not Reportable 07/24/18 04:21 [place] Bodies Not Reportable 07/24/18 04:21 [place] Rings Not Reportable 07/24/18 04:21 Yina Cells Not Reportable 07/24/18 04:21 Bite Cells Not Reportable 07/24/18 04:21 Crenated Cell Not Reportable 07/24/18 04:21 Elliptocytes Not Reportable 07/24/18 04:21 Acanthocytes (Spur) Not Reportable 07/24/18 04:21 Rouleaux Not Reportable 07/24/18 04:21 Hemoglobin C Crystals Not Reportable 07/24/18 04:21 Schistocytes Not Reportable 07/24/18 04:21 Malaria parasites Not Reportable 07/24/18 04:21 Carlos Bodies Not Reportable 07/24/18 04:21 Hem Pathologist Commnt No 07/24/18 04:21 Sodium 138 mmol/L (137-145) 07/25/18 04:44 Potassium 5.2 mmol/L (3.6-5.0) H 07/25/18 04:44 Chloride 93.6 mmol/L (98-107) L 07/25/18 04:44 Carbon Dioxide 28 mmol/L (22-30) 07/25/18 04:44 Anion Gap 22 mmol/L 07/25/18 04:44 BUN 32 mg/dL (9-20) H 07/25/18 04:44 Creatinine 11.1 mg/dL (0.8-1.5) H 07/25/18 04:44 Estimated GFR 6 ml/min 07/25/18 04:44 BUN/Creatinine Ratio 3 % 07/25/18 04:44 Glucose 120 mg/dL (75-100) H 07/25/18 04:44 POC Glucose 85 (70-105) 07/21/18 16:34 Hemoglobin A1c 4.9 % (4-6) 07/21/18 21:52 Calcium 8.9 mg/dL (8.4-10.2) 07/25/18 04:44 Phosphorus 3.90 mg/dL (2.5-4.5) 07/23/18 04:39 Total Bilirubin 0.50 mg/dL (0.1-1.2) 07/23/18 04:39 AST 25 units/L (5-40) 07/23/18 04:39 ALT 13 units/L (7-56) 07/23/18 04:39 Alkaline Phosphatase 88 units/L (35-129) 07/23/18 04:39 Total Protein 7.6 g/dL (6.3-8.2) 07/23/18 04:39 Albumin 3.8 g/dL (3.9-5) L 07/23/18 04:39 Albumin/Globulin Ratio 1.0 % 07/23/18 04:39 Random Vancomycin 15.1 ug/mL (0-40.0) 07/23/18 04:39 Active Medications - Current Medications Current Medications: Generic Name Dose Route Start Last Admin Trade Name Freq PRN Reason Stop Dose Admin Acetaminophen 650 mg 07/21/18 21:42 Tylenol PO Q4H PRN Pain MILD(1-3)/Fever >100.5/WEST Albumin Human 12.5 gm 07/22/18 10:57 Alburx 25% (Albumin) IV DWIGHT PRN Hypotension Alprazolam 2 mg 07/22/18 08:00 07/25/18 14:57 Xanax PO 2 mg TID KWAME Administration Aspirin 325 mg 07/25/18 10:00 07/25/18 10:04 Aspirin PO 325 mg QDAY KWAME Administration Heparin Sodium (Porcine) 5,000 unit 07/24/18 22:00 07/25/18 10:06 Heparin SUB-Q 5,000 unit Q12HR KWAME Administration Hydromorphone HCl 0.5 mg 07/21/18 21:42 07/25/18 10:41 Dilaudid IV 0.5 mg Q3H PRN Administration Pain , Severe (7-10) Sodium Chloride 100 mls @ 999 mls/hr 07/22/18 10:57 Nacl 0.9% IV DWIGHT PRN Hypotension Metronidazole 500 mg in 100 mls @ 100 mls/hr 07/22/18 14:00 07/25/18 14:56 Flagyl 500 Mg/100 Ml IV 100 mls/hr Q8HR KWAME Administration Protocol Cefepime HCl 1 gm in 100 mls @ 200 mls/hr 07/22/18 22:00 07/24/18 22:28 Maxipime/Ns 1 Gm/100 Ml IV 200 mls/hr QHS KWAME Administration Protocol Loperamide HCl 2 mg 07/22/18 11:20 07/24/18 03:58 Imodium PO 2 mg Q2H PRN Administration Diarrhea Methadone HCl 10 mg 07/22/18 10:00 07/25/18 10:05 Dolophine PO Not Given DAILY [facility] Midodrine 5 mg 07/22/18 08:00 07/25/18 14:57 Proamatine PO 5 mg TID KWAME Administration Multivitamins 1 each 07/21/18 22:00 07/25/18 10:04 Theragran Tab PO 1 each QDAY KWAME Administration Nicotine 21 mg 07/22/18 12:00 07/25/18 10:04 Habitrol TD 21 mg QDAY KWAME Administration Ondansetron HCl 4 mg 07/21/18 21:42 Zofran IV Q8H PRN Nausea And Vomiting Oxycodone/Acetaminophen 1 tab 07/21/18 21:42 Percocet 5/325 PO Q6H PRN Pain, Moderate (4-6) Pregabalin 25 mg 07/22/18 08:00 07/25/18 14:57 Lyrica PO 25 mg TID KWAME Administration Pregabalin 75 mg 07/22/18 08:00 07/25/18 14:58 Lyrica PO 75 mg TID KWAME Administration Sevelamer Carbonate 4,000 mg 07/22/18 08:00 07/25/18 17:04 Renvela PO 4,000 mg TIDWM KWAME Administration Sodium Chloride 10 ml 07/21/18 22:00 07/25/18 10:06 Sodium Chloride Flush Syringe 10 Ml IV 10 ml BID KWAME Administration Sodium Chloride 10 ml 07/21/18 21:42 Sodium Chloride Flush Syringe 10 Ml IV PRN PRN LINE FLUSH Tizanidine HCl 6 mg 07/21/18 22:13 Zanaflex PO QDAY PRN Muscle Spasm Zolpidem Tartrate 10 mg 07/21/18 22:08 Ambien PO QHS PRN Sleep Nutrition/Malnutrition Assess - Dietary Evaluation Nutrition/Malnutrition Findings: Nutrition Notes Start: 07/22/18 14:54 Freq: Status: Active Protocol: Document 07/25/18 13:45 RM (Rec: 07/25/18 13:50 RM [id number]) Nutrition Notes Initial or Follow up Reassessment Other Pertinent Diagnosis LLE toe infection, ESRD on HD, TA,PVD Current Diet Renal w/Ensure clear 1 daily Labs/Tests Reviewed Pertinent Medications Reviewed Height 6 ft 1 in Weight 92.9 kg [place] Body Weight (kg) 83.63 BMI 27.0 Subjective/Other Information Pt stated that he eats all of his meals and drinks the Ensure Clear. Percent of energy/protein needs met: 99%/83% Burn Absent Trauma Absent #1 Nutrition Diagnosis Inadequate oral intake As Evidenced by Signs and Symptoms pt meeting 99% of calorie and 83% of protein needs Diagnosis Progress(for reassessment Resolved documentation) Is patient on ventilator? No Is Patient Ambulatory and/or Out of Bed Yes REE-([facility]-ambulatory/OOB) [ 3001.244 [id number]] Calculation Used for Recommendations [facility] Additional Notes Protein Need: 103-112g (1.2-1. 3g/kg dry wt) Fluid Needs: 1 ml/kcal Nutrition Intervention Change Diet Order: Continue current Add Supplement/Snack (indicate name/kcal Ensure Clear Mixed [place] 1 /protein ) daily Provides kCal: 240 Provides Protein (gm) 8 Goal #1 Continue to meet at least 75% of calorie and protein needs via PO and ONS intakes Anticipated Discharge Needs: Renal diet Follow-Up By: 08/01/18 Additional Comments Follow for PO and ONS intakes
[2018-07-25] MEDS: MAXIPIME/NS 1 GM/100 ML 1 GM/100 ML BAG IV SCH (23:40)
[2018-07-26] MEDS: FLAGYL 500 MG/100 ML 500 MG/100 ML BAG IV SCH ×2 (06:04→13:26)
[2018-07-26] MEDS: DILAUDID IV PRN ×2 (06:17→18:58)
[2018-07-26 06:42] LABS: Calcium 8.8 mg/dL (8.4-10.2)
[2018-07-26 06:50] LABS: Basophils % (Auto) 0.6 % (0.0-1.8); Eosinophils # (Auto) 0.1 K/mm3 (0.0-0.4); Eosinophils % (Auto) 3.3 % (0.0-4.3); Hematocrit 33.7 % (35.5-45.6); Hemoglobin 11.1 gm/dl (11.8-15.2); Lymphocytes # (Auto) 0.9 K/mm3 (1.2-5.4); Mean Corpuscular HGB Conc 33 % (32-34); Mean Corpuscular Volume 93 fl (84-94); Monocytes # (Auto) 0.5 K/mm3 (0.0-0.8); Monocytes % (Auto) 14.8 % (0.0-7.3); Platelet Count 151 K/mm3 (140-440); Red Blood Count 3.63 M/mm3 (3.65-5.03); Red Cell Distribution Width 19.2 % (13.2-15.2)
--- NOTE | 2018-07-26 09:07 | Progress Note ---
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 Now with: 1) Left lower extremity cellulitis with underlying acute osteomyelitis of the left fifth toe: Toe appears ischemic. MRI images reviewed, concerning for OM of 5th toe. Wound culture grew staph aureus. Discontinue Cefepime and Flagyl. Continue Vancomycin. Follow up ID and susceptibilities. 2) ESRD: On hemodialysis. Renally dose antibiotics. 3) Peripheral neuropathy 4) Peripheral vascular disease: arterial duplex with atherosclerotic disease. CHONG revealed that all vessels appear patent with 3 vessel runoff to the foot with a palpable DP on the ipsilateral side. Arterial intervention not recommended. Recs: Discontinue Cefepime and Flagyl continue IV Vancomycin PK dosing, target trough 10-20 mcg/ml, D6 follow up wound culture for ID and susceptibilities Continue wound care [facility] M: [phone] O:[phone] Subjective Date of service: 07/26/18 Principal diagnosis: ESRD on HD Interval history: Patient seen and examined. Sitting up in the chair on the side of the bed. Reports no generalized pain or SOB. No fevers. Objective - Exam Narrative Exam: Physical Exam: Constitutional: Alert, cooperative. No acute distress Head, Ears, Nose: Normocephalic, atraumatic. External ears, nose normal Eyes: Conjunctivae/corneas clear. No icterus. No ptosis. Neck: Supple, no meningeal signs Oral: dentition several missing teeth, no thrush Cardiovascular: S1, S2 normal. Respiratory: Good air entry, clear to auscultation bilaterally GI: Soft, non-tender; bowel sounds normal. No peritoneal signs Musculoskeletal: LLE with edema of foot, toes extending to mid-coates. 5th toe with dressing. Skin: No rash or abscess Hem/Lymphatic: No palpable cervical or supraclavicular nodes. No lymphangitis Psych: Mood ok. Affect normal Neurological: Awake, alert, oriented. No gross abnormality - Constitutional Vitals: Vital Signs Temp Pulse Resp BP Pulse Ox 97.7 F 87 20 133/90 95 07/26/18 06:23 07/26/18 06:23 07/26/18 06:23 07/26/18 06:23 07/26/18 06:23 Temperature -Last 24 Hours Temperature 97.7 F Temperature 98.4 F Temperature 97.5 F Temperature 99.0 F Temperature 98.0 F - Labs CBC & Chem 7: 07/26/18 04:42 07/26/18 04:42 Labs: Abnormal lab results 07/26/18 07/26/18 Range/Units 04:42 04:42 WBC 3.7 L (4.5-11.0) K/mm3 RBC 3.63 L (3.65-5.03) M/mm3 Hgb 11.1 L (11.8-15.2) gm/dl Hct 33.7 L (35.5-45.6) % RDW 19.2 H (13.2-15.2) % [place] % (Auto) 14.8 H (0.0-7.3) % Lymph # 0.9 L (1.2-5.4) K/mm3 Potassium 5.3 H (3.6-5.0) mmol/L Chloride 95.6 L (98-107) mmol/L BUN 22 H (9-20) mg/dL Creatinine 8.0 H (0.8-1.5) mg/dL
[2018-07-26] MEDS: ASPIRIN PO SCH (09:15)
[2018-07-26] MEDS: PROAMATINE PO SCH ×3 (09:15→20:09)
[2018-07-26] MEDS: THERAGRAN Tab PO SCH (09:15)
[2018-07-26] MEDS: LYRICA PO SCH ×6 (09:16→20:09)
[2018-07-26] MEDS: DOLOPHINE PO SCH (09:16)
[2018-07-26] MEDS: XANAX PO SCH ×3 (09:16→20:09)
[2018-07-26] MEDS: RENVELA PO SCH ×3 (09:17→18:09)
[2018-07-26] MEDS: HABITROL TD SCH (09:17)
[2018-07-26] MEDS: HEPARIN SUB-Q SCH ×2 (09:17→22:29)
[2018-07-26] MEDS: SODIUM CHLORIDE FLUSH SYRINGE 10 ML IV SCH ×2 (09:27→22:32)
--- NOTE | 2018-07-26 10:04 | Event Note ---
Date: 07/26/18 General surgery consulted for evaluation of L 5th toe cellulitis/osteo. Orthopedic surgery and vascular surgery have already seen and evaluated the patient for this reason. Management of toe infection will be deferred to orthopedic and vascular surgery. D/W Dr. Ramirez.
--- NOTE | 2018-07-26 10:16 | Progress Note ---
Assessment and Plan End Stage Renal Disease on Hemodialysis: -no indication for HD today -Fluid restriction of 1 liter per day -Obtain daily weights -Monitor I/O's -Renal diet -Assess dialysis needs daily Left Lower Extremity Cellulitis: - ID and Ortho consulted Chronic Hypotension: -On Midodrine -Monitor BP IBS: Diarrhea: -On Imodium Subjective Date of service: 07/26/18 Principal diagnosis: ESRD on HD Interval history: tolerated HD yesterday Objective - Vital Signs Vital signs: Vital Signs - 12hr 07/25/18 07/25/18 07/26/18 22:24 22:52 06:17 Temperature 98.4 F Pulse Rate 81 Respiratory 20 18 20 Rate Blood Pressure 126/75 O2 Sat by Pulse 98 Oximetry 07/26/18 06:23 Temperature 97.7 F Pulse Rate 87 Respiratory 20 Rate Blood Pressure 133/90 O2 Sat by Pulse 95 Oximetry - General Appearance General appearance: well-developed, well-nourished, appears stated age EENT: ATNC, PERRL, mucous membranes moist Neck: no JVD, no carotid bruit Respiratory: Present: Clear to Ascultation. Absent: Rales, Ronchi Cardiology: regular, S1S2 Gastrointestinal: normoactive bowel sounds Integumentary: no rash, warm and dry Neurologic: no focal deficit, no asterixis, alert and oriented x3 Musculoskeletal: other (trace pitting edema in BLE) Psychiatric: mood/affect appropriate, cooperative - Lab 07/26/18 04:42 07/26/18 04:42 Most recent lab results Calcium 8.8 mg/dL (8.4-10.2) 07/26/18 04:42 Phosphorus 3.90 mg/dL (2.5-4.5) 07/23/18 04:39 Medications & Allergies - Medications Allergies/Adverse Reactions: Allergies No Known Allergies Allergy (Verified 03/08/13 12:58) Home Medications: Home Medications Medication Instructions Recorded Confirmed Last Taken Type Multivitamin Tab [Multiple Vitamin 1 each PO QDAY #30 tablet 04/17/14 07/21/18 1 Day Ago Rx TAB (Theragran)] ~07/20/18 Sevelamer Carbonate [Renvela] 4,000 mg PO TIDWM 05/29/15 07/21/18 1 Day Ago History ~07/20/18 Zolpidem [Ambien] 10 mg PO QHS PRN 05/29/15 07/21/18 1 Day Ago History ~07/20/18 ALPRAZolam [Xanax TAB] 2 mg PO TID 07/21/18 07/21/18 1 Day Ago History ~07/20/18 Methadone [Dolophine] 10 mg PO DAILY 07/21/18 07/21/18 1 Day Ago History ~07/20/18 Midodrine [Proamatine] 5 mg PO TID 07/21/18 07/21/18 1 Day Ago History ~07/20/18 Oxycodone HCl [Roxicodone TAB] 15 mg PO TID 07/21/18 07/21/18 07/20/18 History Phenergan TAB 25 tab PO DAILY 07/21/18 07/21/18 1 Day Ago History ~07/20/18 Pregabalin [Lyrica] 100 mg PO TID 07/21/18 07/21/18 1 Day Ago History ~07/20/18 Varenicline Tartrate [Chantix] 1 mg PO DAILY 07/21/18 07/21/18 1 Day Ago History ~07/20/18 tiZANidine 6 mg PO QDAY PRN 07/21/18 07/21/18 1 Day Ago History ~07/20/18 Active Medications: Generic Name Dose Route Start Last Admin Trade Name Freq PRN Reason Stop Dose Admin Acetaminophen 650 mg 07/21/18 21:42 Tylenol PO Q4H PRN Pain MILD(1-3)/Fever >100.5/WEST Albumin Human 12.5 gm 07/22/18 10:57 Alburx 25% (Albumin) IV DWIGHT PRN Hypotension Alprazolam 2 mg 07/22/18 08:00 07/26/18 09:16 Xanax PO 2 mg TID KWAME Administration Aspirin 325 mg 07/25/18 10:00 07/26/18 09:15 Aspirin PO 325 mg QDAY KWAME Administration Heparin Sodium (Porcine) 5,000 unit 07/24/18 22:00 07/26/18 09:17 Heparin SUB-Q 5,000 unit Q12HR KWAME Administration Hydromorphone HCl 0.5 mg 07/21/18 21:42 07/26/18 06:17 Dilaudid IV 0.5 mg Q3H PRN Administration Pain , Severe (7-10) Sodium Chloride 100 mls @ 999 mls/hr 07/22/18 10:57 Nacl 0.9% IV DWIGHT PRN Hypotension Metronidazole 500 mg in 100 mls @ 100 mls/hr 07/22/18 14:00 07/26/18 06:04 Flagyl 500 Mg/100 Ml IV 100 mls/hr Q8HR KWAME Administration Protocol Cefepime HCl 1 gm in 100 mls @ 200 mls/hr 07/22/18 22:00 07/25/18 23:40 Maxipime/Ns 1 Gm/100 Ml IV 200 mls/hr QHS KWAME Administration Protocol Loperamide HCl 2 mg 07/22/18 11:20 07/24/18 03:58 Imodium PO 2 mg Q2H PRN Administration Diarrhea Methadone HCl 10 mg 07/22/18 10:00 07/26/18 09:16 Dolophine PO 10 mg DAILY KWAME Administration Midodrine 5 mg 07/22/18 08:00 07/26/18 09:15 Proamatine PO 5 mg TID KWAME Administration Multivitamins 1 each 07/21/18 22:00 07/26/18 09:15 Theragran Tab PO 1 each QDAY KWAME Administration Nicotine 21 mg 07/22/18 12:00 07/26/18 09:17 Habitrol TD 21 mg QDAY KWAME Administration Ondansetron HCl 4 mg 07/21/18 21:42 Zofran IV Q8H PRN Nausea And Vomiting Oxycodone/Acetaminophen 1 tab 07/21/18 21:42 Percocet 5/325 PO Q6H PRN Pain, Moderate (4-6) Pregabalin 25 mg 07/22/18 08:00 07/26/18 09:16 Lyrica PO 25 mg TID KWAME Administration Pregabalin 75 mg 07/22/18 08:00 07/26/18 09:16 Lyrica PO 75 mg TID KWAME Administration Sevelamer Carbonate 4,000 mg 07/22/18 08:00 07/26/18 09:17 Renvela PO 4,000 mg TIDWM KWAME Administration Sodium Chloride 10 ml 07/21/18 22:00 07/26/18 09:27 Sodium Chloride Flush Syringe 10 Ml IV 10 ml BID KWAME Administration Sodium Chloride 10 ml 07/21/18 21:42 Sodium Chloride Flush Syringe 10 Ml IV PRN PRN LINE FLUSH Tizanidine HCl 6 mg 07/21/18 22:13 Zanaflex PO QDAY PRN Muscle Spasm Zolpidem Tartrate 10 mg 07/21/18 22:08 Ambien PO QHS PRN Sleep
--- NOTE | 2018-07-26 10:30 | Progress Note ---
Assessment and Plan Assessment and plan: Left lower extremity cellulitis; and underlying acute osteomyelitis of the left fifth toe On IV vancomycin cefepime and Flagyln per ID elevate the limb, Wound Care, negative for DVT MRI images reviewed, concerning for OM of 5th toe. Wound culture obtained from left 5th toe. Osteomyelitis left fifth digit; as above continue antibiotics, Orthopedic evaluated the patient Bilateral lower extremity arterial Doppler Vascular consult, Patient reports that he sees Dr. Taylor --Peripheral vascular disease; Vascular consult --End-stage renal disease on hemodialysis; HD per scheduled, nephrology following --Type 2 diabetes mellitus; diet controlled Accu-Chek sliding scale coverage and ADA diet Insulin as needed, HbA1c less than 5 --Hypotension; IV fluids, continue Midodrine --Hyponatremia; resolved --Irritable bowel syndrome/chronic diarrhea; Antidiarrheals, supportive care, stool for analysis if no improvement --Anemia of chronic disease and ESRD; Procrit during dialysis, closely monitor H&H --Peripheral neuropathy; Continue current medications --DVT prophylaxis. Renal dose heparin History Interval history: No new issues overnight Hospitalist Physical - Constitutional Vitals: Temp Pulse Resp BP Pulse Ox 97.7 F 87 20 133/90 95 07/26/18 06:23 07/26/18 06:23 07/26/18 06:23 07/26/18 06:23 07/26/18 06:23 General appearance: Present: no acute distress, well-nourished - EENT Eyes: Present: PERRL, EOM intact ENT: hearing intact, clear oral mucosa, dentition normal - Neck Neck: Present: supple, normal ROM - Respiratory Respiratory effort: normal Respiratory: bilateral: CTA - Cardiovascular Rhythm: regular Heart Sounds: Present: S1 & S2. Absent: gallop, rub - Extremities Extremities: no ischemia, No edema, Full ROM - Abdominal General gastrointestinal: soft, non-tender, non-distended, normal bowel sounds - Integumentary Integumentary: Present: clear, warm, dry - Neurologic Neurologic: CNII-XII intact, moves all extremities Results - Labs CBC & Chem 7: 07/26/18 04:42 07/26/18 04:42 Labs: Laboratory Last Values WBC 3.7 K/mm3 (4.5-11.0) L 07/26/18 04:42 RBC 3.63 M/mm3 (3.65-5.03) L 07/26/18 04:42 Hgb 11.1 gm/dl (11.8-15.2) L 07/26/18 04:42 Hct 33.7 % (35.5-45.6) L 07/26/18 04:42 MCV 93 fl (84-94) 07/26/18 04:42 MCH 31 pg (28-32) 07/26/18 04:42 MCHC 33 % (32-34) 07/26/18 04:42 RDW 19.2 % (13.2-15.2) H 07/26/18 04:42 Plt Count 151 K/mm3 (140-440) 07/26/18 04:42 Lymph % (Auto) 24.0 % (13.4-35.0) 07/26/18 04:42 [place] % (Auto) 14.8 % (0.0-7.3) H 07/26/18 04:42 Eos % (Auto) 3.3 % (0.0-4.3) 07/26/18 04:42 Baso % (Auto) 0.6 % (0.0-1.8) 07/26/18 04:42 Lymph # 0.9 K/mm3 (1.2-5.4) L 07/26/18 04:42 [place] # 0.5 K/mm3 (0.0-0.8) 07/26/18 04:42 Eos # 0.1 K/mm3 (0.0-0.4) 07/26/18 04:42 Baso # 0.0 K/mm3 (0.0-0.1) 07/26/18 04:42 Add Manual Diff Complete 07/24/18 04:21 Total Counted 100 07/24/18 04:21 Seg Neutrophils % 57.3 % (40.0-70.0) 07/26/18 04:42 Seg Neuts % (Manual) 62.0 % (40.0-70.0) 07/24/18 04:21 Band Neutrophils % 0 % 07/24/18 04:21 Lymphocytes % (Manual) 21.0 % (13.4-35.0) 07/24/18 04:21 Reactive Lymphs % (Man) 1.0 % 07/24/18 04:21 Monocytes % (Manual) 16.0 % (0.0-7.3) H 07/24/18 04:21 Eosinophils % (Manual) 0 % (0.0-4.3) 07/24/18 04:21 Basophils % (Manual) 0 % (0.0-1.8) 07/24/18 04:21 Metamyelocytes % 0 % 07/24/18 04:21 Myelocytes % 0 % 07/24/18 04:21 Promyelocytes % 0 % 07/24/18 04:21 Blast Cells % 0 % 07/24/18 04:21 Nucleated RBC % Not Reportable 07/24/18 04:21 Seg Neutrophils # 2.1 K/mm3 (1.8-7.7) 07/26/18 04:42 Seg Neutrophils # Man 2.4 K/mm3 (1.8-7.7) 07/24/18 04:21 Band Neutrophils # 0.0 K/mm3 07/24/18 04:21 Lymphocytes # (Manual) 0.8 K/mm3 (1.2-5.4) L 07/24/18 04:21 Abs React Lymphs (Man) 0.0 K/mm3 07/24/18 04:21 Monocytes # (Manual) 0.6 K/mm3 (0.0-0.8) 07/24/18 04:21 Eosinophils # (Manual) 0.0 K/mm3 (0.0-0.4) 07/24/18 04:21 Basophils # (Manual) 0.0 K/mm3 (0.0-0.1) 07/24/18 04:21 Metamyelocytes # 0.0 K/mm3 07/24/18 04:21 Myelocytes # 0.0 K/mm3 07/24/18 04:21 Promyelocytes # 0.0 K/mm3 07/24/18 04:21 Blast Cells # 0.0 K/mm3 07/24/18 04:21 WBC Morphology Not Reportable 07/24/18 04:21 Hypersegmented Neuts Not Reportable 07/24/18 04:21 Hyposegmented Neuts Not Reportable 07/24/18 04:21 Hypogranular Neuts Not Reportable 07/24/18 04:21 Smudge Cells Not Reportable 07/24/18 04:21 Toxic Granulation Not Reportable 07/24/18 04:21 Toxic Vacuolation Not Reportable 07/24/18 04:21 Dohle Bodies Not Reportable 07/24/18 04:21 Pelger-Huet Anomaly Not Reportable 07/24/18 04:21 Faheem Rods Not Reportable 07/24/18 04:21 Platelet Estimate Consistent w auto 07/24/18 04:21 Clumped Platelets Not Reportable 07/24/18 04:21 Plt Clumps, EDTA Not Reportable 07/24/18 04:21 Large Platelets Not Reportable 07/24/18 04:21 Giant Platelets Not Reportable 07/24/18 04:21 Platelet Satelliting Not Reportable 07/24/18 04:21 Plt Morphology Comment Not Reportable 07/24/18 04:21 RBC Morphology Not Reportable 07/24/18 04:21 Dimorphic RBCs Not Reportable 07/24/18 04:21 Polychromasia Not Reportable 07/24/18 04:21 Hypochromasia Few 07/24/18 04:21 Poikilocytosis Not Reportable 07/24/18 04:21 Anisocytosis Not Reportable 07/24/18 04:21 Microcytosis Not Reportable 07/24/18 04:21 Macrocytosis Not Reportable 07/24/18 04:21 Spherocytes Not Reportable 07/24/18 04:21 Pappenheimer Bodies Not Reportable 07/24/18 04:21 Sickle Cells Not Reportable 07/24/18 04:21 Target Cells Few 07/24/18 04:21 Tear Drop Cells Not Reportable 07/24/18 04:21 Ovalocytes Not Reportable 07/24/18 04:21 Helmet Cells Not Reportable 07/24/18 04:21 [place] Bodies Not Reportable 07/24/18 04:21 [place] Rings Not Reportable 07/24/18 04:21 Yina Cells Not Reportable 07/24/18 04:21 Bite Cells Not Reportable 07/24/18 04:21 Crenated Cell Not Reportable 07/24/18 04:21 Elliptocytes Not Reportable 07/24/18 04:21 Acanthocytes (Spur) Not Reportable 07/24/18 04:21 Rouleaux Not Reportable 07/24/18 04:21 Hemoglobin C Crystals Not Reportable 07/24/18 04:21 Schistocytes Not Reportable 07/24/18 04:21 Malaria parasites Not Reportable 07/24/18 04:21 Carlos Bodies Not Reportable 07/24/18 04:21 Hem Pathologist Commnt No 07/24/18 04:21 Sodium 137 mmol/L (137-145) 07/26/18 04:42 Potassium 5.3 mmol/L (3.6-5.0) H 07/26/18 04:42 Chloride 95.6 mmol/L (98-107) L 07/26/18 04:42 Carbon Dioxide 29 mmol/L (22-30) 07/26/18 04:42 Anion Gap 18 mmol/L 07/26/18 04:42 BUN 22 mg/dL (9-20) H 07/26/18 04:42 Creatinine 8.0 mg/dL (0.8-1.5) H 07/26/18 04:42 Estimated GFR 9 ml/min 07/26/18 04:42 BUN/Creatinine Ratio 3 % 07/26/18 04:42 Glucose 84 mg/dL (75-100) 07/26/18 04:42 POC Glucose 85 (70-105) 07/21/18 16:34 Hemoglobin A1c 4.9 % (4-6) 07/21/18 21:52 Calcium 8.8 mg/dL (8.4-10.2) 07/26/18 04:42 Phosphorus 3.90 mg/dL (2.5-4.5) 07/23/18 04:39 Total Bilirubin 0.50 mg/dL (0.1-1.2) 07/23/18 04:39 AST 25 units/L (5-40) 07/23/18 04:39 ALT 13 units/L (7-56) 07/23/18 04:39 Alkaline Phosphatase 88 units/L (35-129) 07/23/18 04:39 Total Protein 7.6 g/dL (6.3-8.2) 07/23/18 04:39 Albumin 3.8 g/dL (3.9-5) L 07/23/18 04:39 Albumin/Globulin Ratio 1.0 % 07/23/18 04:39 Random Vancomycin 15.1 ug/mL (0-40.0) 07/23/18 04:39 Active Medications - Current Medications Current Medications: Generic Name Dose Route Start Last Admin Trade Name Freq PRN Reason Stop Dose Admin Acetaminophen 650 mg 07/21/18 21:42 Tylenol PO Q4H PRN Pain MILD(1-3)/Fever >100.5/WEST Albumin Human 12.5 gm 07/22/18 10:57 Alburx 25% (Albumin) IV DWIGHT PRN Hypotension Alprazolam 2 mg 07/22/18 08:00 07/26/18 09:16 Xanax PO 2 mg TID KWAME Administration Aspirin 325 mg 07/25/18 10:00 07/26/18 09:15 Aspirin PO 325 mg QDAY KWAME Administration Heparin Sodium (Porcine) 5,000 unit 07/24/18 22:00 07/26/18 09:17 Heparin SUB-Q 5,000 unit Q12HR KWAME Administration Hydromorphone HCl 0.5 mg 07/21/18 21:42 07/26/18 06:17 Dilaudid IV 0.5 mg Q3H PRN Administration Pain , Severe (7-10) Sodium Chloride 100 mls @ 999 mls/hr 07/22/18 10:57 Nacl 0.9% IV DWIGHT PRN Hypotension Metronidazole 500 mg in 100 mls @ 100 mls/hr 07/22/18 14:00 07/26/18 06:04 Flagyl 500 Mg/100 Ml IV 100 mls/hr Q8HR KWAME Administration Protocol Cefepime HCl 1 gm in 100 mls @ 200 mls/hr 07/22/18 22:00 07/25/18 23:40 Maxipime/Ns 1 Gm/100 Ml IV 200 mls/hr QHS KWAME Administration Protocol Loperamide HCl 2 mg 07/22/18 11:20 07/24/18 03:58 Imodium PO 2 mg Q2H PRN Administration Diarrhea Methadone HCl 10 mg 07/22/18 10:00 07/26/18 09:16 Dolophine PO 10 mg DAILY KWAME Administration Midodrine 5 mg 07/22/18 08:00 07/26/18 09:15 Proamatine PO 5 mg TID KWAME Administration Multivitamins 1 each 07/21/18 22:00 07/26/18 09:15 Theragran Tab PO 1 each QDAY KWAME Administration Nicotine 21 mg 07/22/18 12:00 07/26/18 09:17 Habitrol TD 21 mg QDAY KWAME Administration Ondansetron HCl 4 mg 07/21/18 21:42 Zofran IV Q8H PRN Nausea And Vomiting Oxycodone/Acetaminophen 1 tab 07/21/18 21:42 Percocet 5/325 PO Q6H PRN Pain, Moderate (4-6) Pregabalin 25 mg 07/22/18 08:00 07/26/18 09:16 Lyrica PO 25 mg TID KWAME Administration Pregabalin 75 mg 07/22/18 08:00 07/26/18 09:16 Lyrica PO 75 mg TID KWAME Administration Sevelamer Carbonate 4,000 mg 07/22/18 08:00 07/26/18 09:17 Renvela PO 4,000 mg TIDWM KWAME Administration Sodium Chloride 10 ml 07/21/18 22:00 07/26/18 09:27 Sodium Chloride Flush Syringe 10 Ml IV 10 ml BID KWAME Administration Sodium Chloride 10 ml 07/21/18 21:42 Sodium Chloride Flush Syringe 10 Ml IV PRN PRN LINE FLUSH Tizanidine HCl 6 mg 07/21/18 22:13 Zanaflex PO QDAY PRN Muscle Spasm Zolpidem Tartrate 10 mg 07/21/18 22:08 Ambien PO QHS PRN Sleep Nutrition/Malnutrition Assess - Dietary Evaluation Nutrition/Malnutrition Findings: Nutrition Notes Start: 07/22/18 14:54 Freq: Status: Active Protocol: Document 07/25/18 13:45 RM (Rec: 07/25/18 13:50 RM [id number]) Nutrition Notes Initial or Follow up Reassessment Other Pertinent Diagnosis LLE toe infection, ESRD on HD, TA,PVD Current Diet Renal w/Ensure clear 1 daily Labs/Tests Reviewed Pertinent Medications Reviewed Height 6 ft 1 in Weight 92.9 kg [place] Body Weight (kg) 83.63 BMI 27.0 Subjective/Other Information Pt stated that he eats all of his meals and drinks the Ensure Clear. Percent of energy/protein needs met: 99%/83% Burn Absent Trauma Absent #1 Nutrition Diagnosis Inadequate oral intake As Evidenced by Signs and Symptoms pt meeting 99% of calorie and 83% of protein needs Diagnosis Progress(for reassessment Resolved documentation) Is patient on ventilator? No Is Patient Ambulatory and/or Out of Bed Yes REE-([place]-ambulatory/OOB) [ [id number] [id number]] Cal[facility] Additional Notes Protein Need: 103-112g (1.2-1. 3g/kg dry wt) Fluid Needs: 1 ml/kcal Nutrition Intervention Change Diet Order: Continue current Add Supplement/Snack (indicate name/kcal Ensure Clear Mixed [place] 1 /protein ) daily Provides kCal: 240 Provides Protein (gm) 8 Goal #1 Continue to meet at least 75% of calorie and protein needs via PO and ONS intakes Anticipated Discharge Needs: Renal diet Follow-Up By: 08/01/18 Additional Comments Follow for PO and ONS intakes
--- NOTE | 2018-07-26 12:30 | Event Note ---
Date: 07/26/18 Arterial duplex, and CHONG reviewed. Pt with underlying PVD, though all vessels appear patent with 3 vessel runoff to the foot with a palpable DP on the ipsilateral side. Do not recommend arterial intervention at this point. If wounds fail to heal this could be reconsidered. Pt can f/u in our office as an outpt.
[2018-07-27] MEDS: DILAUDID IV PRN (08:55)
[2018-07-27] MEDS: PROAMATINE PO SCH ×3 (08:58→20:36)
[2018-07-27] MEDS: LYRICA PO SCH ×6 (08:58→20:36)
[2018-07-27] MEDS: XANAX PO SCH ×3 (08:59→20:36)
[2018-07-27] MEDS: DOLOPHINE PO SCH (09:00)
[2018-07-27] MEDS: HABITROL TD SCH (09:00)
--- NOTE | 2018-07-27 09:00 | Progress Note ---
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 Now with: 1) Left lower extremity cellulitis with underlying acute osteomyelitis of the left fifth toe: Toe appears ischemic. MRI images reviewed, concerning for OM of 5th toe. Wound culture grew staph aureus. Discontinue Vancomycin. Anticipate 6 weeks of IV Cefazolin post HD. 2) ESRD: On hemodialysis. Renally dose antibiotics. 3) Peripheral neuropathy 4) Peripheral vascular disease: arterial duplex with atherosclerotic disease. CHONG revealed that all vessels appear patent with 3 vessel runoff to the foot with a palpable DP on the ipsilateral side. Arterial intervention not recommended. Recs: Discontinue IV Vancomycin Start Cefazolin 1 gm IV q PM Continue wound care Anticipate discharge on IV Cefazolin 2gms Wednesday, 2gms Wednesday and 3gms Wednesday post HD for 6 weeks ending 09-07-18 Order placed with case management f/u with [facility] in 5 weeks [facility] M: [phone] O:[phone] Subjective Date of service: 07/27/18 Principal diagnosis: ESRD on HD Interval history: Patient seen and examined. Sitting up in the bed, No generalized pain, SOB or rashes. No fevers. Objective - Exam Narrative Exam: Physical Exam: Constitutional: Alert, cooperative. No acute distress Head, Ears, Nose: Normocephalic, atraumatic. External ears, nose normal Eyes: Conjunctivae/corneas clear. No icterus. No ptosis. Neck: Supple, no meningeal signs Oral: dentition several missing teeth, no thrush Cardiovascular: S1, S2 normal. Respiratory: Good air entry, clear to auscultation bilaterally GI: Soft, non-tender; bowel sounds normal. No peritoneal signs Musculoskeletal: LLE with edema of foot, toes extending to mid-coates. 5th toe with dressing. Skin: No rash or abscess Hem/Lymphatic: No palpable cervical or supraclavicular nodes. No lymphangitis Psych: Mood ok. Affect normal Neurological: Awake, alert, oriented. No gross abnormality - Constitutional Vitals: Vital Signs Temp Pulse Resp BP Pulse Ox 98.1 F 75 20 148/83 98 07/27/18 05:44 07/27/18 05:44 07/27/18 05:44 07/27/18 05:44 07/27/18 05:44 Temperature -Last 24 Hours Temperature 98.1 F Temperature 97.3 F Temperature 97.4 F - Labs CBC & Chem 7: 07/26/18 04:42 07/26/18 04:42
[2018-07-27] MEDS: ASPIRIN PO SCH (09:01)
[2018-07-27] MEDS: HEPARIN SUB-Q SCH ×2 (09:01→22:18)
[2018-07-27] MEDS: SODIUM CHLORIDE FLUSH SYRINGE 10 ML IV SCH ×2 (09:01→22:18)
[2018-07-27] MEDS: THERAGRAN Tab PO SCH (09:03)
[2018-07-27] MEDS: RENVELA PO SCH ×3 (09:24→18:27)
--- NOTE | 2018-07-27 10:05 | Progress Note ---
Assessment and Plan End Stage Renal Disease on Hemodialysis: -Hemodialysis today for UF and clearance -Fluid restriction of 1 liter per day -Obtain daily weights -Monitor I/O's -Renal diet -Assess dialysis needs daily -Possible discharge tomorrow Left Lower Extremity Cellulitis: Wound Culture: Staph Aureus - S/P IV Unasyn. Now on IV Ancef - Anticipate 6 weeks of IV Cefazolin post HD per ID. - Ortho observing on antibiotics Chronic Hypotension: -On Midodrine -Monitor BP IBS: Diarrhea: -On Imodium Subjective Date of service: 07/27/18 Principal diagnosis: ESRD on HD Interval history: Undergoing hemodialysis at bedside. Awake and alert. Patient discussed that he was scared initially as the thought that his affected foot would need to be "removed". No family at bedside. Objective - Vital Signs Vital signs: Vital Signs - 12hr 07/26/18 07/27/18 23:18 05:44 Temperature 98.1 F Pulse Rate 81 75 Respiratory 20 Rate Blood Pressure 148/83 O2 Sat by Pulse 100 98 Oximetry - General Appearance General appearance: well-developed, appears stated age, fatigue EENT: ATNC, PERRL, hearing intact, vision intact Neck: no JVD, supple Respiratory: Present: Decreased Breath Sounds Cardiology: regular, S1S2 Gastrointestinal: normoactive bowel sounds Integumentary: warm and dry Neurologic: alert and oriented x3 Musculoskeletal: joint swelling, other (Left foot swelling) - Lab 07/26/18 04:42 07/26/18 04:42 Most recent lab results Calcium 8.8 mg/dL (8.4-10.2) 07/26/18 04:42 Phosphorus 3.90 mg/dL (2.5-4.5) 07/23/18 04:39 Medications & Allergies - Medications Allergies/Adverse Reactions: Allergies No Known Allergies Allergy (Verified 03/08/13 12:58) Home Medications: Home Medications Medication Instructions Recorded Confirmed Last Taken Type Multivitamin Tab [Multiple Vitamin 1 each PO QDAY #30 tablet 04/17/14 07/21/18 1 Day Ago Rx TAB (Theragran)] ~07/20/18 Sevelamer Carbonate [Renvela] 4,000 mg PO TIDWM 05/29/15 07/21/18 1 Day Ago History ~07/20/18 Zolpidem [Ambien] 10 mg PO QHS PRN 05/29/15 07/21/18 1 Day Ago History ~07/20/18 ALPRAZolam [Xanax TAB] 2 mg PO TID 07/21/18 07/21/18 1 Day Ago History ~07/20/18 Methadone [Dolophine] 10 mg PO DAILY 07/21/18 07/21/18 1 Day Ago History ~07/20/18 Midodrine [Proamatine] 5 mg PO TID 07/21/18 07/21/18 1 Day Ago History ~07/20/18 Oxycodone HCl [Roxicodone TAB] 15 mg PO TID 07/21/18 07/21/18 07/20/18 History Phenergan TAB 25 tab PO DAILY 07/21/18 07/21/18 1 Day Ago History ~07/20/18 Pregabalin [Lyrica] 100 mg PO TID 07/21/18 07/21/18 1 Day Ago History ~07/20/18 Varenicline Tartrate [Chantix] 1 mg PO DAILY 07/21/18 07/21/18 1 Day Ago History ~07/20/18 tiZANidine 6 mg PO QDAY PRN 07/21/18 07/21/18 1 Day Ago History ~07/20/18 Active Medications: Generic Name Dose Route Start Last Admin Trade Name Freq PRN Reason Stop Dose Admin Acetaminophen 650 mg 07/21/18 21:42 Tylenol PO Q4H PRN Pain MILD(1-3)/Fever >100.5/WEST Albumin Human 12.5 gm 07/22/18 10:57 Alburx 25% (Albumin) IV DWIGHT PRN Hypotension Alprazolam 2 mg 07/22/18 08:00 07/27/18 08:59 Xanax PO 2 mg TID KWAME Administration Aspirin 325 mg 07/25/18 10:00 07/27/18 09:01 Aspirin PO 325 mg QDAY KWAME Administration Heparin Sodium (Porcine) 5,000 unit 07/24/18 22:00 07/27/18 09:01 Heparin SUB-Q 5,000 unit Q12HR KWAME Administration Hydromorphone HCl 0.5 mg 07/21/18 21:42 07/27/18 08:55 Dilaudid IV 0.5 mg Q3H PRN Administration Pain , Severe (7-10) Sodium Chloride 100 mls @ 999 mls/hr 07/22/18 10:57 Nacl 0.9% IV DWIGHT PRN Hypotension Cefazolin Sodium 1 gm in 50 mls @ 100 mls/hr 07/27/18 18:00 Ancef/Ns 1 Gm/50 Ml IV QPM [facility] Protocol Loperamide HCl 2 mg 07/22/18 11:20 07/24/18 03:58 Imodium PO 2 mg Q2H PRN Administration Diarrhea Methadone HCl 10 mg 07/22/18 10:00 07/27/18 09:00 Dolophine PO 10 mg DAILY KWAME Administration Midodrine 5 mg 07/22/18 08:00 07/27/18 08:58 Proamatine PO 5 mg TID KWAME Administration Multivitamins 1 each 07/21/18 22:00 07/27/18 09:03 Theragran Tab PO 1 each QDAY KWAME Administration Nicotine 21 mg 07/22/18 12:00 07/27/18 09:00 Habitrol TD 21 mg QDAY KWAME Administration Ondansetron HCl 4 mg 07/21/18 21:42 Zofran IV Q8H PRN Nausea And Vomiting Oxycodone/Acetaminophen 1 tab 07/21/18 21:42 Percocet 5/325 PO Q6H PRN Pain, Moderate (4-6) Pregabalin 25 mg 07/22/18 08:00 07/27/18 08:59 Lyrica PO 25 mg TID KWAME Administration Pregabalin 75 mg 07/22/18 08:00 07/27/18 08:58 Lyrica PO 75 mg TID KWAME Administration Sevelamer Carbonate 4,000 mg 07/22/18 08:00 07/27/18 09:24 Renvela PO Not Given TIDWM KWAME Sodium Chloride 10 ml 07/21/18 22:00 07/27/18 09:01 Sodium Chloride Flush Syringe 10 Ml IV 10 ml BID KWAME Administration Sodium Chloride 10 ml 07/21/18 21:42 Sodium Chloride Flush Syringe 10 Ml IV PRN PRN LINE FLUSH Tizanidine HCl 6 mg 07/21/18 22:13 Zanaflex PO QDAY PRN Muscle Spasm Zolpidem Tartrate 10 mg 07/21/18 22:08 Ambien PO QHS PRN Sleep
--- NOTE | 2018-07-27 11:11 | Progress Note ---
Assessment and Plan Assessment and plan: Left lower extremity cellulitis; and underlying acute osteomyelitis of the left fifth toe ID recommends Cefazolin 1 gm IV q PM 6 weeks post HD. elevate the limb, Wound Care, negative for DVT MRI images reviewed, concerning for OM of 5th toe. Wound culture obtained from left 5th toe. Osteomyelitis left fifth digit; as above continue antibiotics, Orthopedic evaluated the patient Bilateral lower extremity arterial Doppler Vascular consult, Patient reports that he sees Dr. Taylor --Peripheral vascular disease; Vascular consult --End-stage renal disease on hemodialysis; HD per scheduled, nephrology following --Type 2 diabetes mellitus; diet controlled Accu-Chek sliding scale coverage and ADA diet Insulin as needed, HbA1c less than 5 --Hypotension; IV fluids, continue Midodrine --Hyponatremia; resolved --Irritable bowel syndrome/chronic diarrhea; Antidiarrheals, supportive care, stool for analysis if no improvement --Anemia of chronic disease and ESRD; Procrit during dialysis, closely monitor H&H --Peripheral neuropathy; Continue current medications --DVT prophylaxis. Renal dose heparin History Interval history: No new issues overnight Hospitalist Physical - Constitutional Vitals: Temp Pulse Resp BP Pulse Ox 98.1 F 75 20 148/83 98 07/27/18 05:44 07/27/18 05:44 07/27/18 05:44 07/27/18 05:44 07/27/18 05:44 General appearance: Present: no acute distress, well-nourished - EENT Eyes: Present: PERRL, EOM intact ENT: hearing intact, clear oral mucosa, dentition normal - Neck Neck: Present: supple, normal ROM - Respiratory Respiratory effort: normal Respiratory: bilateral: CTA - Cardiovascular Rhythm: regular Heart Sounds: Present: S1 & S2. Absent: gallop, rub - Extremities Extremities: no ischemia, No edema, Full ROM - Abdominal General gastrointestinal: soft, non-tender, non-distended, normal bowel sounds - Integumentary Integumentary: Present: clear, warm, dry - Neurologic Neurologic: CNII-XII intact, moves all extremities Results - Labs CBC & Chem 7: 07/26/18 04:42 07/26/18 04:42 Labs: Laboratory Last Values WBC 3.7 K/mm3 (4.5-11.0) L 07/26/18 04:42 RBC 3.63 M/mm3 (3.65-5.03) L 07/26/18 04:42 Hgb 11.1 gm/dl (11.8-15.2) L 07/26/18 04:42 Hct 33.7 % (35.5-45.6) L 07/26/18 04:42 MCV 93 fl (84-94) 07/26/18 04:42 MCH 31 pg (28-32) 07/26/18 04:42 MCHC 33 % (32-34) 07/26/18 04:42 RDW 19.2 % (13.2-15.2) H 07/26/18 04:42 Plt Count 151 K/mm3 (140-440) 07/26/18 04:42 Lymph % (Auto) 24.0 % (13.4-35.0) 07/26/18 04:42 Caroline % (Auto) 14.8 % (0.0-7.3) H 07/26/18 04:42 Eos % (Auto) 3.3 % (0.0-4.3) 07/26/18 04:42 Baso % (Auto) 0.6 % (0.0-1.8) 07/26/18 04:42 Lymph # 0.9 K/mm3 (1.2-5.4) L 07/26/18 04:42 Caroline # 0.5 K/mm3 (0.0-0.8) 07/26/18 04:42 Eos # 0.1 K/mm3 (0.0-0.4) 07/26/18 04:42 Baso # 0.0 K/mm3 (0.0-0.1) 07/26/18 04:42 Add Manual Diff Complete 07/24/18 04:21 Total Counted 100 07/24/18 04:21 Seg Neutrophils % 57.3 % (40.0-70.0) 07/26/18 04:42 Seg Neuts % (Manual) 62.0 % (40.0-70.0) 07/24/18 04:21 Band Neutrophils % 0 % 07/24/18 04:21 Lymphocytes % (Manual) 21.0 % (13.4-35.0) 07/24/18 04:21 Reactive Lymphs % (Man) 1.0 % 07/24/18 04:21 Monocytes % (Manual) 16.0 % (0.0-7.3) H 07/24/18 04:21 Eosinophils % (Manual) 0 % (0.0-4.3) 07/24/18 04:21 Basophils % (Manual) 0 % (0.0-1.8) 07/24/18 04:21 Metamyelocytes % 0 % 07/24/18 04:21 Myelocytes % 0 % 07/24/18 04:21 Promyelocytes % 0 % 07/24/18 04:21 Blast Cells % 0 % 07/24/18 04:21 Nucleated RBC % Not Reportable 07/24/18 04:21 Seg Neutrophils # 2.1 K/mm3 (1.8-7.7) 07/26/18 04:42 Seg Neutrophils # Man 2.4 K/mm3 (1.8-7.7) 07/24/18 04:21 Band Neutrophils # 0.0 K/mm3 07/24/18 04:21 Lymphocytes # (Manual) 0.8 K/mm3 (1.2-5.4) L 07/24/18 04:21 Abs React Lymphs (Man) 0.0 K/mm3 07/24/18 04:21 Monocytes # (Manual) 0.6 K/mm3 (0.0-0.8) 07/24/18 04:21 Eosinophils # (Manual) 0.0 K/mm3 (0.0-0.4) 07/24/18 04:21 Basophils # (Manual) 0.0 K/mm3 (0.0-0.1) 07/24/18 04:21 Metamyelocytes # 0.0 K/mm3 07/24/18 04:21 Myelocytes # 0.0 K/mm3 07/24/18 04:21 Promyelocytes # 0.0 K/mm3 07/24/18 04:21 Blast Cells # 0.0 K/mm3 07/24/18 04:21 WBC Morphology Not Reportable 07/24/18 04:21 Hypersegmented Neuts Not Reportable 07/24/18 04:21 Hyposegmented Neuts Not Reportable 07/24/18 04:21 Hypogranular Neuts Not Reportable 07/24/18 04:21 Smudge Cells Not Reportable 07/24/18 04:21 Toxic Granulation Not Reportable 07/24/18 04:21 Toxic Vacuolation Not Reportable 07/24/18 04:21 Dohle Bodies Not Reportable 07/24/18 04:21 Pelger-Huet Anomaly Not Reportable 07/24/18 04:21 Faheem Rods Not Reportable 07/24/18 04:21 Platelet Estimate Consistent w auto 07/24/18 04:21 Clumped Platelets Not Reportable 07/24/18 04:21 Plt Clumps, EDTA Not Reportable 07/24/18 04:21 Large Platelets Not Reportable 07/24/18 04:21 Giant Platelets Not Reportable 07/24/18 04:21 Platelet Satelliting Not Reportable 07/24/18 04:21 Plt Morphology Comment Not Reportable 07/24/18 04:21 RBC Morphology Not Reportable 07/24/18 04:21 Dimorphic RBCs Not Reportable 07/24/18 04:21 Polychromasia Not Reportable 07/24/18 04:21 Hypochromasia Few 07/24/18 04:21 Poikilocytosis Not Reportable 07/24/18 04:21 Anisocytosis Not Reportable 07/24/18 04:21 Microcytosis Not Reportable 07/24/18 04:21 Macrocytosis Not Reportable 07/24/18 04:21 Spherocytes Not Reportable 07/24/18 04:21 Pappenheimer Bodies Not Reportable 07/24/18 04:21 Sickle Cells Not Reportable 07/24/18 04:21 Target Cells Few 07/24/18 04:21 Tear Drop Cells Not Reportable 07/24/18 04:21 Ovalocytes Not Reportable 07/24/18 04:21 Helmet Cells Not Reportable 07/24/18 04:21 [place] Bodies Not Reportable 07/24/18 04:21 [place] Rings Not Reportable 07/24/18 04:21 Yina Cells Not Reportable 07/24/18 04:21 Bite Cells Not Reportable 07/24/18 04:21 Crenated Cell Not Reportable 07/24/18 04:21 Elliptocytes Not Reportable 07/24/18 04:21 Acanthocytes (Spur) Not Reportable 07/24/18 04:21 Rouleaux Not Reportable 07/24/18 04:21 Hemoglobin C Crystals Not Reportable 07/24/18 04:21 Schistocytes Not Reportable 07/24/18 04:21 Malaria parasites Not Reportable 07/24/18 04:21 Carlos Bodies Not Reportable 07/24/18 04:21 Hem Pathologist Commnt No 07/24/18 04:21 Sodium 137 mmol/L (137-145) 07/26/18 04:42 Potassium 5.3 mmol/L (3.6-5.0) H 07/26/18 04:42 Chloride 95.6 mmol/L (98-107) L 07/26/18 04:42 Carbon Dioxide 29 mmol/L (22-30) 07/26/18 04:42 Anion Gap 18 mmol/L 07/26/18 04:42 BUN 22 mg/dL (9-20) H 07/26/18 04:42 Creatinine 8.0 mg/dL (0.8-1.5) H 07/26/18 04:42 Estimated GFR 9 ml/min 07/26/18 04:42 BUN/Creatinine Ratio 3 % 07/26/18 04:42 Glucose 84 mg/dL (75-100) 07/26/18 04:42 POC Glucose 85 (70-105) 07/21/18 16:34 Hemoglobin A1c 4.9 % (4-6) 07/21/18 21:52 Calcium 8.8 mg/dL (8.4-10.2) 07/26/18 04:42 Phosphorus 3.90 mg/dL (2.5-4.5) 07/23/18 04:39 Total Bilirubin 0.50 mg/dL (0.1-1.2) 07/23/18 04:39 AST 25 units/L (5-40) 07/23/18 04:39 ALT 13 units/L (7-56) 07/23/18 04:39 Alkaline Phosphatase 88 units/L (35-129) 07/23/18 04:39 Total Protein 7.6 g/dL (6.3-8.2) 07/23/18 04:39 Albumin 3.8 g/dL (3.9-5) L 07/23/18 04:39 Albumin/Globulin Ratio 1.0 % 07/23/18 04:39 Random Vancomycin 15.1 ug/mL (0-40.0) 07/23/18 04:39 Active Medications - Current Medications Current Medications: Generic Name Dose Route Start Last Admin Trade Name Freq PRN Reason Stop Dose Admin Acetaminophen 650 mg 07/21/18 21:42 Tylenol PO Q4H PRN Pain MILD(1-3)/Fever >100.5/WEST Albumin Human 12.5 gm 07/22/18 10:57 Alburx 25% (Albumin) IV DWIGHT PRN Hypotension Alprazolam 2 mg 07/22/18 08:00 07/27/18 08:59 Xanax PO 2 mg TID KWAME Administration Aspirin 325 mg 07/25/18 10:00 07/27/18 09:01 Aspirin PO 325 mg QDAY KWAME Administration Heparin Sodium (Porcine) 5,000 unit 07/24/18 22:00 07/27/18 09:01 Heparin SUB-Q 5,000 unit Q12HR KWAME Administration Hydromorphone HCl 0.5 mg 07/21/18 21:42 07/27/18 08:55 Dilaudid IV 0.5 mg Q3H PRN Administration Pain , Severe (7-10) Sodium Chloride 100 mls @ 999 mls/hr 07/22/18 10:57 Nacl 0.9% IV DWIGHT PRN Hypotension Cefazolin Sodium 1 gm in 50 mls @ 100 mls/hr 07/27/18 18:00 Ancef/Ns 1 Gm/50 Ml IV QPM [facility] Protocol Loperamide HCl 2 mg 07/22/18 11:20 07/24/18 03:58 Imodium PO 2 mg Q2H PRN Administration Diarrhea Methadone HCl 10 mg 07/22/18 10:00 07/27/18 09:00 Dolophine PO 10 mg DAILY KWAME Administration Midodrine 5 mg 07/22/18 08:00 07/27/18 08:58 Proamatine PO 5 mg TID KWAME Administration Multivitamins 1 each 07/21/18 22:00 07/27/18 09:03 Theragran Tab PO 1 each QDAY KWAME Administration Nicotine 21 mg 07/22/18 12:00 07/27/18 09:00 Habitrol TD 21 mg QDAY KWAME Administration Ondansetron HCl 4 mg 07/21/18 21:42 Zofran IV Q8H PRN Nausea And Vomiting Oxycodone/Acetaminophen 1 tab 07/21/18 21:42 Percocet 5/325 PO Q6H PRN Pain, Moderate (4-6) Pregabalin 25 mg 07/22/18 08:00 07/27/18 08:59 Lyrica PO 25 mg TID KWAME Administration Pregabalin 75 mg 07/22/18 08:00 07/27/18 08:58 Lyrica PO 75 mg TID KWAME Administration Sevelamer Carbonate 4,000 mg 07/22/18 08:00 07/27/18 09:24 Renvela PO Not Given TIDWM KWAME Sodium Chloride 10 ml 07/21/18 22:00 07/27/18 09:01 Sodium Chloride Flush Syringe 10 Ml IV 10 ml BID KWAME Administration Sodium Chloride 10 ml 07/21/18 21:42 Sodium Chloride Flush Syringe 10 Ml IV PRN PRN LINE FLUSH Tizanidine HCl 6 mg 07/21/18 22:13 Zanaflex PO QDAY PRN Muscle Spasm Zolpidem Tartrate 10 mg 07/21/18 22:08 Ambien PO QHS PRN Sleep Nutrition/Malnutrition Assess - Dietary Evaluation Nutrition/Malnutrition Findings: Nutrition Notes Start: 07/22/18 14:54 Freq: Status: Active Protocol: Document 07/25/18 13:45 RM (Rec: 07/25/18 13:50 RM [id number]) Nutrition Notes Initial or Follow up Reassessment Other Pertinent Diagnosis LLE toe infection, ESRD on HD, TA,PVD Current Diet Renal w/Ensure clear 1 daily Labs/Tests Reviewed Pertinent Medications Reviewed Height 6 ft 1 in Weight 92.9 kg [place] Body Weight (kg) 83.63 BMI 27.0 Subjective/Other Information Pt stated that he eats all of his meals and drinks the Ensure Clear. Percent of energy/protein needs met: 99%/83% Burn Absent Trauma Absent #1 Nutrition Diagnosis Inadequate oral intake As Evidenced by Signs and Symptoms pt meeting 99% of calorie and 83% of protein needs Diagnosis Progress(for reassessment Resolved documentation) Is patient on ventilator? No Is Patient Ambulatory and/or Out of Bed Yes REE-([facility]. Jeor-ambulatory/OOB) [ 2389.244 [id number]] Calculation Used for Recommendations [facility] Additional Notes Protein Need: 103-112g (1.2-1. 3g/kg dry wt) Fluid Needs: 1 ml/kcal Nutrition Intervention Change Diet Order: Continue current Add Supplement/Snack (indicate name/kcal Ensure Clear Mixed [place] 1 /protein ) daily Provides kCal: 240 Provides Protein (gm) 8 Goal #1 Continue to meet at least 75% of calorie and protein needs via PO and ONS intakes Anticipated Discharge Needs: Renal diet Follow-Up By: 08/01/18 Additional Comments Follow for PO and ONS intakes
[2018-07-27] MEDS ORDERED: ANCEF/NS 1 GM/50 ML 1 GM/50 ML BAG IV SCH (18:00)
[2018-07-28] MEDS: DILAUDID IV PRN (08:03)
--- NOTE | 2018-07-28 08:49 | Progress Note ---
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 Now with: 1) Left lower extremity cellulitis with underlying acute osteomyelitis of the left fifth toe: Toe appears ischemic. MRI images reviewed, concerning for OM of 5th toe. Wound culture grew staph aureus. Discontinue Anticipate 6 weeks of IV Cefazolin post HD. 2) ESRD: On hemodialysis. Renally dose antibiotics. 3) Peripheral neuropathy 4) Peripheral vascular disease: arterial duplex with atherosclerotic disease. CHONG revealed that all vessels appear patent with 3 vessel runoff to the foot with a palpable DP on the ipsilateral side. Arterial intervention not recommended. Recs: Continue Cefazolin 1 gm IV q PM, D2 Continue wound care Anticipate discharge on IV Cefazolin 2gms Wednesday, 2gms Wednesday and 3gms Wednesday post HD for 6 weeks ending 09-07-18 Order placed with case management f/u ID clinic ID is signing off [facility] M: [id number] O:[phone] Subjective Date of service: 07/28/18 Principal diagnosis: ESRD on HD Interval history: Patient seen and examined. Sitting up in the bed, No generalized pain, SOB or rashes. No fevers. Objective - Exam Narrative Exam: Physical Exam: Constitutional: Alert, cooperative. No acute distress Head, Ears, Nose: Normocephalic, atraumatic. External ears, nose normal Eyes: Conjunctivae/corneas clear. No icterus. No ptosis. Neck: Supple, no meningeal signs Oral: dentition several missing teeth, no thrush Cardiovascular: S1, S2 normal. Respiratory: Good air entry, clear to auscultation bilaterally GI: Soft, non-tender; bowel sounds normal. No peritoneal signs Musculoskeletal: LLE with edema of foot, toes extending to mid-coates. 5th toe with dressing. Skin: No rash or abscess Hem/Lymphatic: No palpable cervical or supraclavicular nodes. No lymphangitis Psych: Mood ok. Affect normal Neurological: Awake, alert, oriented. No gross abnormality - Constitutional Vitals: Vital Signs Temp Pulse Resp BP Pulse Ox 97.3 F L 72 18 121/76 97 07/28/18 05:31 07/28/18 05:31 07/28/18 05:31 07/28/18 05:31 07/28/18 05:31 Temperature -Last 24 Hours Temperature 97.3 F Temperature 98.2 F Temperature 97.3 F Temperature 98.2 F Temperature 97.8 F - Labs CBC & Chem 7: 07/26/18 04:42 07/26/18 04:42
[2018-07-28] MEDS: IMODIUM PO PRN (09:05)
[2018-07-28] MEDS: RENVELA PO SCH ×2 (09:06→13:21)
[2018-07-28] MEDS: LYRICA PO SCH ×2 (09:08)
[2018-07-28] MEDS: XANAX PO SCH (09:09)
--- NOTE | 2018-07-28 09:18 | Progress Note ---
Assessment and Plan End Stage Renal Disease on Hemodialysis: -S/P Hemodialysis yesterday for UF and clearance -Fluid restriction of 1 liter per day -Obtain daily weights -Monitor I/O's -Renal diet -Assess dialysis needs daily -Possible discharge today Left Lower Extremity Cellulitis: Wound Culture: Staph Aureus - S/P IV Unasyn. Now on IV Ancef - Anticipate 6 weeks of IV Cefazolin post HD per ID. - [employer] worker to fax over antibiotic order to dialysis clinic - Ortho observing on antibiotics Chronic Hypotension: -On Midodrine -Monitor BP IBS: Diarrhea: -On Imodium Subjective Date of service: 07/28/18 Principal diagnosis: ESRD on HD Interval history: Patient seen lying in bed. Sleepy but easily arousable. States he had upset stom ach last night. Had popcorn with stuff on it per patient. No family at bedside. Objective - Vital Signs Vital signs: Vital Signs - 12hr 07/27/18 07/27/18 07/28/18 22:00 23:58 05:31 Temperature 98.2 F 97.3 F L Pulse Rate 81 72 Respiratory 20 20 18 Rate Blood Pressure 104/54 121/76 O2 Sat by Pulse 96 97 Oximetry - General Appearance General appearance: well-developed, appears stated age, fatigue EENT: ATNC, PERRL, hearing intact, vision intact Neck: no JVD, supple Respiratory: Present: Decreased Breath Sounds Cardiology: S1S2 Gastrointestinal: normoactive bowel sounds Integumentary: warm and dry Neurologic: alert and oriented x3 Musculoskeletal: joint swelling, decreased ROM, other (Edema to left foot) - Lab 07/26/18 04:42 07/26/18 04:42 Most recent lab results Calcium 8.8 mg/dL (8.4-10.2) 07/26/18 04:42 Phosphorus 3.90 mg/dL (2.5-4.5) 07/23/18 04:39 Medications & Allergies - Medications Allergies/Adverse Reactions: Allergies No Known Allergies Allergy (Verified 03/08/13 12:58) Home Medications: Home Medications Medication Instructions Recorded Confirmed Last Taken Type Multivitamin Tab [Multiple Vitamin 1 each PO QDAY #30 tablet 04/17/14 07/21/18 1 Day Ago Rx TAB (Theragran)] ~07/20/18 Sevelamer Carbonate [Renvela] 4,000 mg PO TIDWM 05/29/15 07/21/18 1 Day Ago History ~07/20/18 Zolpidem [Ambien] 10 mg PO QHS PRN 05/29/15 07/21/18 1 Day Ago History ~07/20/18 ALPRAZolam [Xanax TAB] 2 mg PO TID 07/21/18 07/21/18 1 Day Ago History ~07/20/18 Methadone [Dolophine] 10 mg PO DAILY 07/21/18 07/21/18 1 Day Ago History ~07/20/18 Midodrine [Proamatine] 5 mg PO TID 07/21/18 07/21/18 1 Day Ago History ~07/20/18 Oxycodone HCl [Roxicodone TAB] 15 mg PO TID 07/21/18 07/21/18 07/20/18 History Phenergan TAB 25 tab PO DAILY 07/21/18 07/21/18 1 Day Ago History ~07/20/18 Pregabalin [Lyrica] 100 mg PO TID 07/21/18 07/21/18 1 Day Ago History ~07/20/18 Varenicline Tartrate [Chantix] 1 mg PO DAILY 07/21/18 07/21/18 1 Day Ago History ~07/20/18 tiZANidine 6 mg PO QDAY PRN 07/21/18 07/21/18 1 Day Ago History ~07/20/18 Active Medications: Generic Name Dose Route Start Last Admin Trade Name Freq PRN Reason Stop Dose Admin Acetaminophen 650 mg 07/21/18 21:42 Tylenol PO Q4H PRN Pain MILD(1-3)/Fever >100.5/WEST Albumin Human 12.5 gm 07/22/18 10:57 Alburx 25% (Albumin) IV DWIGHT PRN Hypotension Alprazolam 2 mg 07/22/18 08:00 07/28/18 09:09 Xanax PO Not Given TID KWAME Aspirin 325 mg 07/25/18 10:00 07/27/18 09:01 Aspirin PO 325 mg QDAY KWAME Administration Heparin Sodium (Porcine) 5,000 unit 07/24/18 22:00 07/27/18 22:18 Heparin SUB-Q 5,000 unit Q12HR KWAME Administration Hydromorphone HCl 0.5 mg 07/21/18 21:42 07/28/18 08:03 Dilaudid IV 0.5 mg Q3H PRN Administration Pain , Severe (7-10) Sodium Chloride 100 mls @ 999 mls/hr 07/22/18 10:57 Nacl 0.9% IV DWIGHT PRN Hypotension Cefazolin Sodium 1 gm in 50 mls @ 100 mls/hr 07/27/18 18:00 07/27/18 18:27 Ancef/Ns 1 Gm/50 Ml IV 100 mls/hr QPM KWAME Administration Protocol Loperamide HCl 2 mg 07/22/18 11:20 07/28/18 09:05 Imodium PO 2 mg Q2H PRN Administration Diarrhea Methadone HCl 10 mg 07/22/18 10:00 07/27/18 09:00 Dolophine PO 10 mg DAILY KWAME Administration Midodrine 5 mg 07/22/18 08:00 07/27/18 20:36 Proamatine PO 5 mg TID KWAME Administration Multivitamins 1 each 07/21/18 22:00 07/27/18 09:03 Theragran Tab PO 1 each QDAY KAWME Administration Nicotine 21 mg 07/22/18 12:00 07/27/18 09:00 Habitrol TD 21 mg QDAY KWAME Administration Ondansetron HCl 4 mg 07/21/18 21:42 Zofran IV Q8H PRN Nausea And Vomiting Oxycodone/Acetaminophen 1 tab 07/21/18 21:42 Percocet 5/325 PO Q6H PRN Pain, Moderate (4-6) Pregabalin 25 mg 07/22/18 08:00 07/28/18 09:08 Lyrica PO Not Given TID KWAME Pregabalin 75 mg 07/22/18 08:00 07/28/18 09:08 Lyrica PO Not Given TID KWAME Sevelamer Carbonate 4,000 mg 07/22/18 08:00 07/28/18 09:06 Renvela PO 4,000 mg TIDWM KWAME Administration Sodium Chloride 10 ml 07/21/18 22:00 07/27/18 22:18 Sodium Chloride Flush Syringe 10 Ml IV 10 ml BID KWAME Administration Sodium Chloride 10 ml 07/21/18 21:42 Sodium Chloride Flush Syringe 10 Ml IV PRN PRN LINE FLUSH Tizanidine HCl 6 mg 07/21/18 22:13 Zanaflex PO QDAY PRN Muscle Spasm Zolpidem Tartrate 10 mg 07/21/18 22:08 Ambien PO QHS PRN Sleep
[2018-07-28] MEDS: ASPIRIN PO SCH (10:43)
[2018-07-28] MEDS: DOLOPHINE PO SCH (10:43)
[2018-07-28] MEDS: PROAMATINE PO SCH ×2 (10:43→13:22)
[2018-07-28] MEDS: THERAGRAN Tab PO SCH (10:44)
[2018-07-28] MEDS: SODIUM CHLORIDE FLUSH SYRINGE 10 ML IV SCH (10:45)
[2018-07-28] MEDS: HEPARIN SUB-Q SCH (10:45)
--- NOTE | 2018-07-28 10:47 | Discharge Summary ---
Providers - Providers Date of Admission: 07/21/18 13:17 Date of discharge: 07/28/18 Attending physician: ANGE GUTIERREZ 07/21/18 Consult to Case Management [CONS] Routine Services Needed at Discharge: Home Health Services Notified:: cm 07/21/18 14:11 Consult to Physician [CONS] Urgent Comment: Consulting Provider: NIRMALA ALVAREZ Physician Instructions: Reason For Exam: ESRD ON DIALYSIS 07/21/18 21:45 Consult to Physician [CONS] Routine Comment: Consulting Provider: JAYSHREE WEBB Physician Instructions: Reason For Exam: L small toe infection 07/22/18 07:19 Consult to Physician [CONS] Routine Comment: Consulting Provider: DEANNA ISLAS Physician Instructions: Reason For Exam: LLE Cellulitis 07/22/18 12:38 Consult to Wound/ET Nurse [CONS] Routine Reason For Exam: wound eval 07/25/18 07:00 Consult to Physician [CONS] Routine Comment: Consulting Provider: MANDIE LINDQUIST Physician Instructions: Reason For Exam: PVD/ osteomyelitis Lt 5th digit 07/25/18 21:37 Consult to Physician [CONS] Routine Comment: Consulting Provider: RIO RAMIREZ Physician Instructions: Reason For Exam: cellulitis foot/osteo toe 07/27/18 15:07 Consult to Case Management [CONS] Urgent Services Needed at Discharge: Other Notified:: no Additional Physician Instructions: [facility] ([facility] M [phone] O [phone] F [phone] OUTPATIENT PARENTERAL ANTIBIOTIC THERAPY ORDERS Diagnoses: Acute Osteomylitis left fifth toe Antimicrobial administration: Anticipate discharge on IV Cefazolin 2gms Wednesday, 2gms Wednesday and 3gms Wednesday post HD for 6 weeks ending 09-07-18 Lines: HD catheter Lab monitoring: CBC, ALT, AST, CRP, ESR once a week preferly on Wednesday morning. Please fax results to [phone] and call [phone] for critical lab results. Carolina Kraft NP/Dr. Islas Date: 07/27/18 Primary care physician: GUME COOPER Hospitalization Reason for admission: Left lower extremity cellulitis Hospital course: The patient is a 53-year-old male with ESRD on hemodialysis, diet and exercise controlled diabetes mellitus, peripheral neuropathy, prior MRSA bacteremia in 02/2014 and 04/2013 was admitted to the hospital on 07/21/18 from his PCPs office due to concern for left lower extremity cellulitis with fifth toe infection. The patient stated that he was apparently doing fine until 07/19/2018 when he noticed his left foot was getting swollen as well as the fifth toe skin had turned red with some blistering. He tried to clean it and it bled significantly. He then saw his PCP who recommended hospital admission. Patient was empirically started on Unasyn and vancomycin. The patient was admitted with diagnosis of left lower extremity cellulitis and underlying acute osteomyelitis of the left fifth toe. MRI images reviewed, concerning for OM of 5th toe. Wound culture grew staph aureus. Infectious diseases was consulted for additional recommendations. Orthopedics consulted on admission. Patient was empirically started on Unasyn and vancomycin. Infectious diseases was consulted for additional recommendations. Nephrology was consulted for maintenance of ESRD. Also, Orthopedics, vascular surgery and general surgery consulted. Orthopedics and general surgery deferred to vascular surgery recommendations. Vascular surgery noted underlying peripheral vascular disease after reviewing arterial duplex and ABIs. Vascular surgery reported that though all vessels appear patent with 3 vessel runoff to the foot with a palpable DP on the ipsilateral side and did not recommend arterial intervention at this point. However, If wounds fail to heal this could be reconsidered. Vascular surgery recommended Pt f/u in their office as an outpt. Lower extremity ultrasound was negative for DVT. ID recommended discharge on IV Cefazolin 2gms Wednesday, 2gms Wednesday and 3gms Wednesday post HD for 6 weeks ending 09-07-18. Case management was consulted and antibiotics were arranged with hemodialysis. Dedicated discharge time 35 minutes. Disposition: - TO HOME OR SELFCARE Time spent for discharge: 35 - Discharge Diagnoses (1) Toe osteomyelitis Status: Acute (2) Osteomyelitis Status: Acute (3) End-stage renal disease on hemodialysis Status: Chronic (4) Cellulitis Status: Acute Core Measure Documentation - Palliative Care Palliative Care/ Comfort Measures: Not Applicable - Core Measures Any of the following diagnoses?: none Exam - Constitutional Vitals: Temp Pulse Resp BP Pulse Ox 97.3 F L 72 18 121/76 97 07/28/18 05:31 07/28/18 05:31 07/28/18 05:31 07/28/18 05:31 07/28/18 05:31 General appearance: Present: no acute distress, well-nourished - EENT Eyes: Present: PERRL ENT: hearing intact, clear oral mucosa - Neck Neck: Present: supple, normal ROM - Respiratory Respiratory effort: normal Respiratory: bilateral: CTA - Cardiovascular Heart Sounds: Present: S1 & S2. Absent: rub, click - Extremities Extremities: pulses symmetrical, No edema Peripheral Pulses: within normal limits - Abdominal General gastrointestinal: Present: soft, non-tender, non-distended, normal bowel sounds Male genitourinary: Present: normal - Integumentary Integumentary: Present: clear, warm, dry - Musculoskeletal Musculoskeletal: gait normal, strength equal bilaterally - Psychiatric Psychiatric: appropriate mood/affect, intact judgment & insight - Neurologic Neurologic: CNII-XII intact, moves all extremities Plan Activity: advance as tolerated Weight Bearing Status: Weight Bear as Tolerated Diet: diabetic Special Instructions: home health RN Follow up with: GUME COOPER MD [Primary Care Provider] - 7 Days DEANNA ISLAS MD [Staff Physician] - 7 Days JAYSHREE WEBB MD [Staff Physician] - 7 Days SERA DAVALOS MD [Staff Physician] - 7 Days CAROLA FELIZ MD [Staff Physician] - 7 Days Prescriptions: Zolpidem [Ambien] 10 mg PO QHS PRN #12 tablet PRN Reason: Sleep Aspirin [Aspirin TAB] 325 mg PO QDAY #30 tablet Methadone [Dolophine] 10 mg PO DAILY #10 tablet Pregabalin [Lyrica] 100 mg PO TID #30 capsule Multivitamin Tab [Multiple Vitamin TAB (Theragran)] 1 each PO QDAY #30 tablet Midodrine [Proamatine] 5 mg PO TID #90 tablet Sevelamer Carbonate [Renvela] 4,000 mg PO TIDWM #30 tablet tiZANidine 6 mg PO QDAY PRN #12 PRN Reason: Pain, Mild (1-3) ALPRAZolam [Xanax TAB] 2 mg PO TID #12 tablet
[2018-07-28] MEDS: HABITROL TD SCH (10:53)
[2018-07-28 12:44] VITALS: BP 129/80
== END 2018-07-28 14:11 | disposition home health service (06) | DRG 299 ==
LOC: 3A 10:52 → UNDOADMIN 10:52 → 3A 13:17
PROVIDERS: ADMIT Internal Medicine; ATTEND Hospitalist
PROC: 5A1D70Z Performance of Urinary Filtration, Intermittent, Less than 6 Hours Per Day (ICD-10-PCS; principal; 2018-07-22)
PROC: 5A1D70Z Performance of Urinary Filtration, Intermittent, Less than 6 Hours Per Day (ICD-10-PCS; 2018-07-25)
PROC: 5A1D70Z Performance of Urinary Filtration, Intermittent, Less than 6 Hours Per Day (ICD-10-PCS; 2018-07-27)
DX: E11.52 Type 2 diabetes mellitus with diabetic peripheral angiopathy with gangrene (principal); N18.6 End stage renal disease; M86.172 Other acute osteomyelitis, left ankle and foot; E87.1 Hypo-osmolality and hyponatremia; I70.262 Atherosclerosis of native arteries of extremities with gangrene, left leg; L97.528 Non-pressure chronic ulcer of other part of left foot with other specified severity; E11.69 Type 2 diabetes mellitus with other specified complication; D63.1 Anemia in chronic kidney disease; F41.1 Generalized anxiety disorder; E11.22 Type 2 diabetes mellitus with diabetic chronic kidney disease; G89.29 Other chronic pain; L03.032 Cellulitis of left toe; I95.9 Hypotension, unspecified; K58.0 Irritable bowel syndrome with diarrhea; Z99.2 Dependence on renal dialysis; Z82.49 Family history of ischemic heart disease and other diseases of the circulatory system; Z79.899 Other long term (current) drug therapy; Z79.01 Long term (current) use of anticoagulants; Z86.14 Personal history of Methicillin resistant Staphylococcus aureus infection; Z95.828 Presence of other vascular implants and grafts; Z79.84 Long term (current) use of oral hypoglycemic drugs
CPT/HCPCS: 36415; 73721; 80048; 80053; 80202; 82962; 83036; 84100; 85007; 85025; 87076; 87116; 87186; 93922; 93925; G0378; J0295; J0690; J0692; J1170; J1644; J2060; J3370; J7030; J7040

== ENCOUNTER 2018-08-04 10:36 | Outpatient (CLI) | payer MEDICARE ==
[2018-08-04] MEDS ORDERED: XYLOCAINE TOPICAL 4% TP ONE (10:54)
== END 2018-08-04 10:37 | disposition home or self-care (01) ==
LOC: WOUND 10:36
PROVIDERS: ATTEND Surgery
DX: E11.621 Type 2 diabetes mellitus with foot ulcer (principal); L97.522 Non-pressure chronic ulcer of other part of left foot with fat layer exposed; E11.22 Type 2 diabetes mellitus with diabetic chronic kidney disease; I12.0 Hypertensive chronic kidney disease with stage 5 chronic kidney disease or end stage renal disease; N18.6 End stage renal disease; M19.90 Unspecified osteoarthritis, unspecified site; E11.69 Type 2 diabetes mellitus with other specified complication; M86.672 Other chronic osteomyelitis, left ankle and foot; F32.9 Major depressive disorder, single episode, unspecified; Z99.2 Dependence on renal dialysis

== ENCOUNTER 2018-08-09 14:38 | Outpatient (CLI) | payer MEDICARE | END 2018-08-09 14:39 | disposition home or self-care (01) | LOC: WOUND 14:38 | PROVIDERS: ATTEND Surgery | DX: E11.621 Type 2 diabetes mellitus with foot ulcer (principal); L97.522 Non-pressure chronic ulcer of other part of left foot with fat layer exposed; E11.22 Type 2 diabetes mellitus with diabetic chronic kidney disease; I12.0 Hypertensive chronic kidney disease with stage 5 chronic kidney disease or end stage renal disease; N18.6 End stage renal disease; M19.90 Unspecified osteoarthritis, unspecified site; E11.69 Type 2 diabetes mellitus with other specified complication; M86.672 Other chronic osteomyelitis, left ankle and foot; F32.9 Major depressive disorder, single episode, unspecified; Z99.2 Dependence on renal dialysis | CPT/HCPCS: 82962; 99183; G0277 ==

== ENCOUNTER 2018-08-10 14:51 | Outpatient (CLI) | payer MEDICARE | END 2018-08-10 14:52 | disposition home or self-care (01) | LOC: WOUND 14:51 | PROVIDERS: ATTEND Surgery | DX: E11.621 Type 2 diabetes mellitus with foot ulcer (principal); L97.522 Non-pressure chronic ulcer of other part of left foot with fat layer exposed; E11.22 Type 2 diabetes mellitus with diabetic chronic kidney disease; I12.0 Hypertensive chronic kidney disease with stage 5 chronic kidney disease or end stage renal disease; N18.6 End stage renal disease; M19.90 Unspecified osteoarthritis, unspecified site; E11.69 Type 2 diabetes mellitus with other specified complication; M86.672 Other chronic osteomyelitis, left ankle and foot; F32.9 Major depressive disorder, single episode, unspecified; Z99.2 Dependence on renal dialysis | CPT/HCPCS: 82962; 99183; G0277 ==

== ENCOUNTER 2018-08-12 14:57 | Outpatient (CLI) | payer MEDICARE | END 2018-08-12 14:58 | disposition home or self-care (01) | LOC: WOUND 14:57 | PROVIDERS: ATTEND Surgery | DX: E11.621 Type 2 diabetes mellitus with foot ulcer (principal); L97.521 Non-pressure chronic ulcer of other part of left foot limited to breakdown of skin; E11.69 Type 2 diabetes mellitus with other specified complication; M86.672 Other chronic osteomyelitis, left ankle and foot; E11.22 Type 2 diabetes mellitus with diabetic chronic kidney disease; I12.0 Hypertensive chronic kidney disease with stage 5 chronic kidney disease or end stage renal disease; N18.6 End stage renal disease; F32.9 Major depressive disorder, single episode, unspecified; Z99.2 Dependence on renal dialysis | CPT/HCPCS: 82962; 99183; G0277 ==

== ENCOUNTER 2018-08-15 17:05 | Emergency (ER) | payer MEDICARE ==
[2018-08-15 17:33] VITALS: BP 111/70
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
== END 2018-08-15 20:27 | disposition left against medical advice (07) ==
LOC: ED 17:05
DX: M54.5 Low back pain (principal); Z53.21 Procedure and treatment not carried out due to patient leaving prior to being seen by health care provider
CPT/HCPCS: 72100

== ENCOUNTER 2018-08-16 12:53 | Outpatient (CLI) | payer MEDICARE ==
[2018-08-16] MEDS ORDERED: XYLOCAINE TOPICAL 4% TP ONE (12:57)
== END 2018-08-16 12:54 | disposition home or self-care (01) ==
LOC: WOUND 12:53
PROVIDERS: ATTEND Surgery
DX: E11.621 Type 2 diabetes mellitus with foot ulcer (principal); L97.525 Non-pressure chronic ulcer of other part of left foot with muscle involvement without evidence of necrosis; E11.69 Type 2 diabetes mellitus with other specified complication; M86.672 Other chronic osteomyelitis, left ankle and foot; E11.22 Type 2 diabetes mellitus with diabetic chronic kidney disease; I12.0 Hypertensive chronic kidney disease with stage 5 chronic kidney disease or end stage renal disease; N18.6 End stage renal disease; F32.9 Major depressive disorder, single episode, unspecified
CPT/HCPCS: 11043; 82962; G0277; 99183

== ENCOUNTER 2018-08-23 08:00 | Outpatient (CLI) | payer MEDICARE ==
[2018-08-23] MEDS ORDERED: XYLOCAINE TOPICAL 4% TP ONE (14:00)
== END 2018-08-23 08:01 | disposition home or self-care (01) ==
LOC: WOUND 08:00
PROVIDERS: ATTEND Surgery
DX: E11.621 Type 2 diabetes mellitus with foot ulcer (principal); L97.525 Non-pressure chronic ulcer of other part of left foot with muscle involvement without evidence of necrosis; E11.69 Type 2 diabetes mellitus with other specified complication; M86.672 Other chronic osteomyelitis, left ankle and foot; E11.22 Type 2 diabetes mellitus with diabetic chronic kidney disease; N18.6 End stage renal disease; I12.0 Hypertensive chronic kidney disease with stage 5 chronic kidney disease or end stage renal disease; F32.9 Major depressive disorder, single episode, unspecified; Z99.2 Dependence on renal dialysis
CPT/HCPCS: 11043; 82962; G0277; 99183

== ENCOUNTER 2018-08-24 14:35 | Outpatient (CLI) | payer MEDICARE | END 2018-08-24 14:36 | disposition home or self-care (01) | LOC: WOUND 14:35 | PROVIDERS: ATTEND Surgery | DX: E11.621 Type 2 diabetes mellitus with foot ulcer (principal); L97.525 Non-pressure chronic ulcer of other part of left foot with muscle involvement without evidence of necrosis; E11.69 Type 2 diabetes mellitus with other specified complication; M86.672 Other chronic osteomyelitis, left ankle and foot; E11.22 Type 2 diabetes mellitus with diabetic chronic kidney disease; N18.6 End stage renal disease; I12.0 Hypertensive chronic kidney disease with stage 5 chronic kidney disease or end stage renal disease; F32.9 Major depressive disorder, single episode, unspecified; Z99.2 Dependence on renal dialysis | CPT/HCPCS: 82962; 99183; G0277 ==

== ENCOUNTER 2018-08-25 10:49 | Outpatient (CLI) | payer MEDICARE | END 2018-08-25 10:50 | disposition home or self-care (01) | LOC: WOUND 10:49 | PROVIDERS: ATTEND Surgery | DX: E11.621 Type 2 diabetes mellitus with foot ulcer (principal); L97.525 Non-pressure chronic ulcer of other part of left foot with muscle involvement without evidence of necrosis; E11.69 Type 2 diabetes mellitus with other specified complication; M86.672 Other chronic osteomyelitis, left ankle and foot; E11.22 Type 2 diabetes mellitus with diabetic chronic kidney disease; N18.6 End stage renal disease; I12.0 Hypertensive chronic kidney disease with stage 5 chronic kidney disease or end stage renal disease; F32.9 Major depressive disorder, single episode, unspecified; Z99.2 Dependence on renal dialysis | CPT/HCPCS: 82962; G0277; 99183 ==

== ENCOUNTER 2018-08-26 14:33 | Outpatient (CLI) | payer MEDICARE | END 2018-08-26 14:34 | disposition home or self-care (01) | LOC: WOUND 14:33 | PROVIDERS: ATTEND Surgery | DX: E11.621 Type 2 diabetes mellitus with foot ulcer (principal); L97.525 Non-pressure chronic ulcer of other part of left foot with muscle involvement without evidence of necrosis; E11.69 Type 2 diabetes mellitus with other specified complication; M86.672 Other chronic osteomyelitis, left ankle and foot; E11.22 Type 2 diabetes mellitus with diabetic chronic kidney disease; N18.6 End stage renal disease; I12.0 Hypertensive chronic kidney disease with stage 5 chronic kidney disease or end stage renal disease; F32.9 Major depressive disorder, single episode, unspecified; Z99.2 Dependence on renal dialysis | CPT/HCPCS: 82962; 99183; G0277 ==

== ENCOUNTER 2018-08-30 13:14 | Outpatient (CLI) | payer MEDICARE | END 2018-08-30 13:15 | disposition home or self-care (01) | LOC: WOUND 13:14 | PROVIDERS: ATTEND Surgery | DX: E11.621 Type 2 diabetes mellitus with foot ulcer (principal); L97.521 Non-pressure chronic ulcer of other part of left foot limited to breakdown of skin; E11.622 Type 2 diabetes mellitus with other skin ulcer; L97.811 Non-pressure chronic ulcer of other part of right lower leg limited to breakdown of skin; E11.69 Type 2 diabetes mellitus with other specified complication; M86.672 Other chronic osteomyelitis, left ankle and foot; E11.22 Type 2 diabetes mellitus with diabetic chronic kidney disease; I12.0 Hypertensive chronic kidney disease with stage 5 chronic kidney disease or end stage renal disease; N18.6 End stage renal disease; F32.9 Major depressive disorder, single episode, unspecified; Z99.2 Dependence on renal dialysis | CPT/HCPCS: 82962; G0277; 99183 ==

== ENCOUNTER 2018-08-31 14:49 | Outpatient (CLI) | payer MEDICARE | END 2018-08-31 14:50 | disposition home or self-care (01) | LOC: WOUND 14:49 | PROVIDERS: ATTEND Surgery | DX: E11.621 Type 2 diabetes mellitus with foot ulcer (principal); L97.521 Non-pressure chronic ulcer of other part of left foot limited to breakdown of skin; E11.622 Type 2 diabetes mellitus with other skin ulcer; L97.811 Non-pressure chronic ulcer of other part of right lower leg limited to breakdown of skin; E11.69 Type 2 diabetes mellitus with other specified complication; M86.672 Other chronic osteomyelitis, left ankle and foot; E11.22 Type 2 diabetes mellitus with diabetic chronic kidney disease; I12.0 Hypertensive chronic kidney disease with stage 5 chronic kidney disease or end stage renal disease; N18.6 End stage renal disease; F32.9 Major depressive disorder, single episode, unspecified; Z99.2 Dependence on renal dialysis | CPT/HCPCS: 82962; G0277; 99183 ==

== ENCOUNTER 2018-09-01 09:54 | Outpatient (CLI) | payer MEDICARE ==
[2018-09-01] MEDS ORDERED: SODIUM CHLORIDE FLUSH SYRINGE 10 ML IV PRN (10:18)
[2018-09-01] MEDS ORDERED: SILVER NITRATE TP ONE (10:30)
[2018-09-01] MEDS ORDERED: XYLOCAINE TOPICAL 4% TP ONE (10:30)
== END 2018-09-01 09:55 | disposition home or self-care (01) ==
LOC: WOUND 09:54
PROVIDERS: ATTEND Surgery
DX: E11.621 Type 2 diabetes mellitus with foot ulcer (principal); L97.525 Non-pressure chronic ulcer of other part of left foot with muscle involvement without evidence of necrosis; E11.69 Type 2 diabetes mellitus with other specified complication; M86.672 Other chronic osteomyelitis, left ankle and foot; E11.22 Type 2 diabetes mellitus with diabetic chronic kidney disease; N18.6 End stage renal disease; I12.0 Hypertensive chronic kidney disease with stage 5 chronic kidney disease or end stage renal disease; F32.9 Major depressive disorder, single episode, unspecified; Z99.2 Dependence on renal dialysis
CPT/HCPCS: 15275; 82962; G0277; Q4158; 99183

== ENCOUNTER 2018-09-02 14:45 | Outpatient (CLI) | payer MEDICARE | END 2018-09-02 14:46 | disposition home or self-care (01) | LOC: WOUND 14:45 | PROVIDERS: ATTEND Surgery | DX: E11.621 Type 2 diabetes mellitus with foot ulcer (principal); L97.521 Non-pressure chronic ulcer of other part of left foot limited to breakdown of skin; E11.622 Type 2 diabetes mellitus with other skin ulcer; L97.811 Non-pressure chronic ulcer of other part of right lower leg limited to breakdown of skin; E11.69 Type 2 diabetes mellitus with other specified complication; M86.672 Other chronic osteomyelitis, left ankle and foot; E11.22 Type 2 diabetes mellitus with diabetic chronic kidney disease; I12.0 Hypertensive chronic kidney disease with stage 5 chronic kidney disease or end stage renal disease; N18.6 End stage renal disease; F32.9 Major depressive disorder, single episode, unspecified; Z99.2 Dependence on renal dialysis | CPT/HCPCS: 82962; 99183; G0277 ==

== ENCOUNTER 2018-09-06 10:30 | Emergency (ER) | payer MEDICARE ==
--- NOTE | 2018-09-06 11:16 | XRay Report ---
ROUTINE CHEST, TWO VIEWS: HISTORY: chest pain. The trachea, heart, mediastinal contour, lung gagnon and bony thorax are unremarkable. Left axillary vascular stent is noted. No significant change since 04/08/18. IMPRESSION: Unremarkable chest x-ray.
[2018-09-06 11:21] LABS: Basophils % (Auto) 0.3 % (0.0-1.8); Eosinophils % (Auto) 0.5 % (0.0-4.3); Hematocrit 35.3 % (35.5-45.6); Hemoglobin 11.7 gm/dl (11.8-15.2); Lymphocytes # (Auto) 0.7 K/mm3 (1.2-5.4); Lymphocytes % (Auto) 21.3 % (13.4-35.0); Mean Corpuscular HGB Conc 33 % (32-34); Mean Corpuscular Volume 91 fl (84-94); Monocytes # (Auto) 0.4 K/mm3 (0.0-0.8); Monocytes % (Auto) 10.5 % (0.0-7.3); Platelet Count 79 K/mm3 (140-440); Red Blood Count 3.88 M/mm3 (3.65-5.03); Red Cell Distribution Width 18.9 % (13.2-15.2)
--- NOTE | 2018-09-06 11:22 | Emergency Department Report ---
ED General Adult HPI - General Chief complaint: Chest Pain Stated complaint: HBP/CHEST PAIN/LIGHT HEADED Time Seen by Provider: 09/06/18 11:09 Source: patient, RN notes reviewed, old records reviewed Mode of arrival: Ambulatory Limitations: No Limitations - History of Present Illness Initial comments: Primary care Dr.: Dr. Yg Cooper Planer Chain Offbearer: Dr. Sinclair Nephrology: Dr. Lee This is a 53-year-old gentleman. His past medical history includes end-stage renal disease, on dialysis, osteomyelitis of his left lower extremity, currently on outpatient antibiotics, typically gets dialysis, Wednesday, Wednesday, Wednesday, last dialysis session was yesterday, and it was of normal length and duration, currently following up with outpatient hyperbaric medicine. The patient is also on chronic benzodiazepines for anxiety. He ran out of his Xanax prescription over the weekend. He reports that since the weekend, he's been having chest pressure, which is nonexertional, which does not radiate to the back, arms or neck. It lasts for a few seconds. There is no vomiting, diaphoresis or shortness of breath. He reports feeling very anxious. This is associated with a sensation of scalp tingling. It is now resolved. He reports this feels similar to prior episodes of panic attack and anxiety. Of note, he had a nuclear stress tests May 2015, which was negative for ischemic findings. He reports that his wound doctor, Dr. Sathya Rankin, had also prescribed a prescription for Xanax, but he was not able to get it filled as his insurance did not cover it. He currently has no pain at this time, he reports no exacerbating or relieving factors, with the exception of Xanax, which improves his symptoms. He is currently resting comfortable, and his stretcher, and in no acute distress. -: Sudden Location: chest Radiation: non-radiation Quality: other Consistency: other Improves with: other Worsens with: other - Related Data Home Medications Medication Instructions Recorded Confirmed Last Taken Phenergan TAB 25 tab PO DAILY 07/21/18 07/21/18 1 Day Ago ~07/20/18 Varenicline Tartrate [Chantix] 1 mg PO DAILY 07/21/18 07/21/18 1 Day Ago ~07/20/18 Previous Rx's Medication Instructions Recorded Last Taken Type ALPRAZolam [Xanax TAB] 2 mg PO TID #12 tablet 07/28/18 Unknown Rx Aspirin 325 mg PO QDAY #30 tablet 07/28/18 Unknown Rx Loperamide [Imodium] 2 mg PO Q2H PRN capsule 07/28/18 Unknown Rx Methadone [Dolophine] 10 mg PO DAILY #10 tablet 07/28/18 Unknown Rx Midodrine [Proamatine] 5 mg PO TID #90 tablet 07/28/18 Unknown Rx Multivitamin Tab [Multiple Vitamin 1 each PO QDAY #30 tablet 07/28/18 Unknown Rx TAB (Theragran)] Oxycodone HCl [roxiCODONE] 15 mg PO TID #12 tablet 07/28/18 Unknown Rx Pregabalin [Lyrica] 100 mg PO TID #30 capsule 07/28/18 Unknown Rx Sevelamer Carbonate [Renvela] 4,000 mg PO TIDWM #30 tablet 07/28/18 Unknown Rx Zolpidem [Ambien] 10 mg PO QHS PRN #12 tablet 07/28/18 Unknown Rx tiZANidine 6 mg PO QDAY PRN #12 07/28/18 Unknown Rx Allergies Allergy/AdvReac Type Severity Reaction Status Date / Time No Known Allergies Allergy Verified 09/06/18 10:32 ED Review of Systems ROS: Stated complaint: HBP/CHEST PAIN/LIGHT HEADED Other details as noted in HPI Constitutional: denies: fever Eyes: denies: eye discharge ENT: denies: epistaxis Respiratory: denies: cough Cardiovascular: other Gastrointestinal: denies: abdominal pain, nausea, vomiting Genitourinary: denies: dysuria Musculoskeletal: other (chronic left lower extremity skin lesion. No acute or new lesions.) Neurological: denies: weakness Psychiatric: anxiety ED Past Medical Hx - Past Medical History Hx Hypertension: Yes Hx CVA: No Hx Heart Attack/AMI: No Hx Congestive Heart Failure: No Hx Diabetes: Yes Hx Deep Vein Thrombosis: No Hx Pulmonary Embolism: No Hx GERD: Yes Hx Liver Disease: No Hx Renal Disease: Yes Hx Sickle Cell Disease: No Hx Arthritis: Yes Hx Headaches / Migraines: No Hx Seizures: No Hx Kidney Stones: No Hx Asthma: No Hx COPD: No Hx Tuberculosis: No Hx HIV: No Additional medical history: Dialysis shunt right upper arm. Osteomyelitis. - Surgical History Hx Coronary Stent: No Hx Open Heart Surgery: No Hx Pacemaker: No Hx Internal Defibrillator: No Hx Cholecystectomy: No Hx Appendectomy: No Hx Breast Surgery: No Additional Surgical History: "back surgery" - Social History Smoking Status: Current Every Day Smoker Substance Use Type: None - Medications Home Medications: Home Medications Medication Instructions Recorded Confirmed Last Taken Type Phenergan TAB 25 tab PO DAILY 07/21/18 07/21/18 1 Day Ago History ~07/20/18 Varenicline Tartrate [Chantix] 1 mg PO DAILY 07/21/18 07/21/18 1 Day Ago History ~07/20/18 ALPRAZolam [Xanax TAB] 2 mg PO TID #12 tablet 07/28/18 Unknown Rx Aspirin 325 mg PO QDAY #30 tablet 07/28/18 Unknown Rx Loperamide [Imodium] 2 mg PO Q2H PRN capsule 07/28/18 Unknown Rx Methadone [Dolophine] 10 mg PO DAILY #10 tablet 07/28/18 Unknown Rx Midodrine [Proamatine] 5 mg PO TID #90 tablet 07/28/18 Unknown Rx Multivitamin Tab [Multiple Vitamin 1 each PO QDAY #30 tablet 07/28/18 Unknown Rx TAB (Theragran)] Oxycodone HCl [roxiCODONE] 15 mg PO TID #12 tablet 07/28/18 Unknown Rx Pregabalin [Lyrica] 100 mg PO TID #30 capsule 07/28/18 Unknown Rx Sevelamer Carbonate [Renvela] 4,000 mg PO TIDWM #30 tablet 07/28/18 Unknown Rx Zolpidem [Ambien] 10 mg PO QHS PRN #12 tablet 07/28/18 Unknown Rx tiZANidine 6 mg PO QDAY PRN #12 07/28/18 Unknown Rx ED Physical Exam - General Limitations: No Limitations General appearance: alert, anxious - Head Head exam: Present: atraumatic, normocephalic - Eye Eye exam: Present: normal appearance, EOMI. Absent: nystagmus - ENT ENT exam: Present: normal exam, normal orophraynx, mucous membranes moist, normal external ear exam - Neck Neck exam: Present: normal inspection, full ROM. Absent: tenderness, meningismus - Respiratory Respiratory exam: Present: normal lung sounds bilaterally. Absent: respiratory distress - Cardiovascular Cardiovascular Exam: Present: regular rate, normal rhythm, normal heart sounds. Absent: bradycardia, tachycardia, irregular rhythm, systolic murmur, diastolic murmur, rubs, gallop - GI/Abdominal GI/Abdominal exam: Present: soft. Absent: distended, tenderness, guarding, rebound, rigid, pulsatile mass - Rectal Rectal exam: Present: deferred - Extremities Exam Extremities exam: Present: normal inspection (patient has a skin graft that is c overed on the left upper extremity. There is no redness, pus or streaking.), full ROM (there is a right upper extremity graft, with no redness, pus or streaking), other (2+ pulses noted in the bilateral upper, lower extremities. Compartments soft. No long bony tenderness. The pelvis is stable.). Absent: calf tenderness - Back Exam Back exam: Present: normal inspection, full ROM. Absent: tenderness, CVA tenderness (R), CVA tenderness (L), paraspinal tenderness, vertebral tenderness - Neurological Exam Neurological exam: Present: alert, oriented X3, other (Extraocular movements intact. Tongue midline. No facial droop. Facial sensation intact to light touch in the V1, V2, V3 distribution bilaterally. 5 and 5 strength in 4 extremities.. Sensation is intact to light touch in 4 extremities.). Absent: motor sensory deficit - Psychiatric Psychiatric exam: Present: anxious - Skin Skin exam: Present: warm, dry, intact, normal color. Absent: rash ED Course Vital Signs 09/06/18 09/06/18 09/06/18 10:43 11:10 11:15 Temperature 98.4 F Pulse Rate 95 H 90 Respiratory 16 13 10 L Rate Blood Pressure 166/100 145/88 Blood Pressure [Left] O2 Sat by Pulse 100 100 Oximetry 09/06/18 09/06/18 09/06/18 11:30 11:45 12:00 Temperature Pulse Rate 86 88 87 Respiratory 11 L 12 13 Rate Blood Pressure 143/88 141/83 142/79 Blood Pressure [Left] O2 Sat by Pulse 85 70 L Oximetry 09/06/18 09/06/18 09/06/18 12:15 12:31 12:45 Temperature Pulse Rate 90 87 81 Respiratory 13 9 L 12 Rate Blood Pressure 126/87 128/76 123/80 Blood Pressure [Left] O2 Sat by Pulse 67 L 95 Oximetry 09/06/18 09/06/1819 13:00 13:05 13:15 Temperature 98.0 F Pulse Rate 79 84 Respiratory 9 L 12 Rate Blood Pressure 113/72 113/72 Blood Pressure [Left] O2 Sat by Pulse 97 100 Oximetry 09/06/18 13:51 Temperature 98.3 F Pulse Rate 81 Respiratory 20 Rate Blood Pressure Blood Pressure 113/72 [Left] O2 Sat by Pulse 100 Oximetry - Reevaluation(s) Reevaluation #1: 09/06/18 11:25 ga equity holder aware 08/11/2018 1 08/09/2018 METHADONE HCL 10 MG TABLET 30.0 30 MA CHANEL [id number] [facility] (6098) 0 30.0 MME Comm [place] 08/11/2018 1 08/09/2018 OXYCODONE HCL 15 MG TABLET 120.0 30 MA CHANEL [id number] [facility] (6098) 0 90.0 [place] 08/11/2018 1 08/09/2018 LYRICA 100 MG CAPSULE 90.0 30 MA CHANEL [id number] [facility] (6098) 0 [place] 08/10/2018 1 02/15/2018 ZOLPIDEM TARTRATE 10 MG TABLET 30.0 30 PA LYRIC [id number] [facility] (6098) 4 [place] 07/14/2018 1 07/12/2018 METHADONE HCL 10 MG TABLET 30.0 30 MA CHANEL [id number] [facility] (6098) 0 30.0 [place]ME [place] 07/14/2018 1 07/12/2018 OXYCODONE HCL 15 MG TABLET 120.0 30 MA CHANEL [id number] [facility] (6098) 0 90.0 [place]ME [place] 07/14/2018 1 07/12/2018 LYRICA 100 MG CAPSULE 90.0 30 MA CHANEL [id number] [facility] (6098) 0 [place] 07/14/2018 1 02/15/2018 ALPRAZOLAM 2 MG TABLET 90.0 30 PA LYRIC [id number] [facility] (6098) 3 [place] 07/12/2018 1 02/15/2018 ZOLPIDEM TARTRATE 10 MG TABLET 30.0 30 PA LYRIC [id number] [facility] (6098) 3 [place] 06/16/2018 1 06/14/2018 OXYCODONE HCL 15 MG TABLET 120.0 30 MA CHANEL [id number] [facility] (6098) 0 90.0 MME Comm Ins 06/16/2018 1 06/14/2018 LYRICA 100 MG CAPSULE 90.0 30 MA CHANEL [id number] [facility] (6098) 0 Comm Ins 06/14/2018 1 02/15/2018 ALPRAZOLAM 2 MG TABLET 90.0 30 PA LYRIC [id number] [facility] (6098) 2 Comm Ins 06/14/2018 1 02/15/2018 ZOLPIDEM TARTRATE 10 MG TABLET 30.0 30 PA LYRIC [id number] [facility] (6098) 2 Comm Ins 05/19/2018 1 05/17/2018 OXYCODONE HCL 15 MG TABLET 120.0 30 MA CHANEL [id number] [facility] (6098) 0 90.0 MME Comm Ins 05/19/2018 1 05/17/2018 LYRICA 100 MG CAPSULE 90.0 30 MA CHANEL [id number] [facility] (6098) 0 Comm Ins 05/16/2018 1 02/15/2018 ALPRAZOLAM 2 MG TABLET 90.0 30 PA LYRIC [id number] [facility] (6098) 1 Comm Ins 05/16/2018 1 02/15/2018 ZOLPIDEM TARTRATE 10 MG TABLET 30.0 30 PA LYRIC [id number] [facility] (6098) 1 Comm Ins 04/20/2018 1 04/19/2018 OXYCODONE HCL 15 MG TABLET 120.0 30 MA CHANEL [id number] [facility] (6098) 0 90.0 MME Comm 04/20/2018 1 04/19/2018 LYRICA 100 MG CAPSULE 90.0 30 MA CHANEL [id number] [facility] (6098) 0 Comm Ins 04/15/2018 1 02/15/2018 ALPRAZOLAM 2 MG TABLET 90.0 30 PA LYRIC [id number] [facility] (6098) 0 Comm 04/13/2018 1 02/15/2018 ZOLPIDEM TARTRATE 10 MG TABLET 30.0 30 PA LYRIC [id number] [facility]UST (6098) 0 Comm [facility] Reevaluation #2: 09/06/18 14:04 Troponin basically unchanged 2. Patient resting comfortably and in no acute distress. He will be discharged. ED Medical Decision Making - Lab Data Result diagrams: 09/06/18 11:07 09/06/18 11:07 Vital Signs 09/06/18 10:43 Temperature 98.4 F Pulse Rate 95 H Respiratory 16 Rate Blood Pressure 166/100 O2 Sat by Pulse 100 Oximetry Lab Results 09/06/18 09/06/18 Range/Units 11:07 11:07 WBC 3.4 L (4.5-11.0) K/mm3 RBC 3.88 (3.65-5.03) M/mm3 Hgb 11.7 L (11.8-15.2) gm/dl Hct 35.3 L (35.5-45.6) % MCV 91 (84-94) fl MCH 30 (28-32) pg MCHC 33 (32-34) % RDW 18.9 H (13.2-15.2) % Plt Count 79 L (140-440) K/mm3 Lymph % (Auto) 21.3 (13.4-35.0) % [place] % (Auto) 10.5 H (0.0-7.3) % Eos % (Auto) 0.5 (0.0-4.3) % Baso % (Auto) 0.3 (0.0-1.8) % Lymph # 0.7 L (1.2-5.4) K/mm3 [place] # 0.4 (0.0-0.8) K/mm3 Eos # 0.0 (0.0-0.4) K/mm3 Baso # 0.0 (0.0-0.1) K/mm3 Seg Neutrophils % 67.4 (40.0-70.0) % Seg Neutrophils # 2.3 (1.8-7.7) K/mm3 Sodium 134 L (137-145) mmol/L Potassium 3.8 (3.6-5.0) mmol/L Chloride 81.7 L (98-107) mmol/L Carbon Dioxide 34 H (22-30) mmol/L Anion Gap 22 mmol/L BUN 26 H (9-20) mg/dL Creatinine 7.9 H (0.8-1.5) mg/dL Estimated GFR 9 ml/min BUN/Creatinine Ratio 3 % Glucose 134 H (75-100) mg/dL Calcium 8.9 (8.4-10.2) mg/dL Troponin T 0.064 H (0.00-0.029) ng/mL Triglycerides 169 H (2-149) mg/dL Cholesterol 173 (50-199) mg/dL LDL Cholesterol Direct 109 (50-130) mg/dL HDL Cholesterol 43 (40-59) mg/dL Cholesterol/HDL Ratio 4.02 % - EKG Data -: EKG Interpreted by Me EKG shows normal: sinus rhythm Rate: normal - EKG Data 09/06/18 12:58 EKG #1 shows a sinus rhythm, 94 bpm, normal axis, QTC prolonged, poor R wave progression, low voltage inferiorly, abnormal EKG, atrial enlargement, not consistent with ST elevation myocardial infarction. EKG #2 was unchanged from EKG #1. Both EKGs appear to be unchanged from prior EKG from 2017. - Radiology Data Radiology results: report reviewed, image reviewed interpreted by me: Print Report Referring Physician: PATO MCDONALD Patient Name: SHAMA FARRELL Date of : 1965 Sex: Male Report Date: 2018-09-06 Report Status: [place] [address] XRay Report Signed Patient: SHAMA FARRELL MR#: [id number] : 1965 Acct:[id number] Age/Sex: 53 / M ADM Date: 09/06/18 Loc: ED Attending Dr: Ordering Physician: PATO MCDONALD MD Date of Service: 09/06/18 Procedure(s): XR chest routine 2V Accession Number(s): [id number] cc: PATO MCDONALD MD Fluoro Time In Minutes: ROUTINE CHEST, TWO VIEWS: HISTORY: chest pain. The trachea, heart, mediastinal contour, lung gagnon and bony thorax are unremarkable. Left axillary vascular stent is noted. No significant change since 04/08/18. IMPRESSION: Unremarkable chest x-ray. Transcribed By: TTR Dictated By: MARIA E PEREZ JR, MD Electronically Authenticated By: MARIA E PEREZ JR, MD Signed Date/Time: 09/06/18 1111 X-ray of the chest is negative for acute disease - Medical Decision Making Differential diagnosis, including but not limited to: Anxiety, benzodiazepine dependence, GERD, gastritis, hiatal hernia, acute coronary syndrome Assessment and plan: 53-year-old gentleman who presents to the emergency room with a complaint of chest discomfort, intermittent, and the context of his anxiety, in the context of running out of his Xanax prescription. He is not tachycardic, he is not hypoxic, he has no DVT or pulmonary embolus risk factors, and he is low risk by well's criteria. His EKG is morphologically abnormal, but unchanged 2, and unchanged when compared to prior. He had a negative cardiac nuclear stress test in 2016. Patient was evaluated by cardiology, Dr. Allison, who indicates, and I agree with him, that the patient does not require admission for cardiac risk stratification, given the history and physical, and presenting information. His vascular risk factor burden is reviewed and appreciated, however, given his history, it is my opinion, in conjunction with the cardiology team, that the patient will not medically benefit from hospitalization or admission. This is also discussed with the patient, who has indicated he would prefer to follow-up as an outpatient. Elevated troponin is reviewed and appreciated, this appears to be chronic, improved from prior, likely type II troponin leak, likely secondary to chronic renal insufficiency. Through shared decision making, the patient will be discharged to follow-up with his outpatient living manager. I will defer to the patient to follow up with his primary care doctor or donor services specialist for a benzodiazepine refill. The patient did feel improved after being given Xanax in the emergency room. Critical care attestation.: If time is entered above; I have spent that time in minutes in the direct care of this critically ill patient, excluding procedure time. ED Disposition Clinical Impression: End stage renal disease on dialysis, Benzodiazepine dependence, Chest discomfort Disposition: DC-01 TO HOME OR SELFCARE Is pt being admited?: No Does the pt Need Aspirin: No Condition: Stable Additional Instructions: Please continue current outpatient medications. Follow up with your primary care doctor within the next 5-7 days for repeat evaluation for benzodiazepine refill. Please follow-up with your living manager as an outpatient within the next 3 days. Ezequiel's return to the emergency room right away with new pain, worsening pain, migration of pain, productive vomiting, change in mental status, confusion, inability to tolerate liquid feeds, new, worsening or different symptoms not present on the initial ER evaluation. Referrals: YG COOPER MD [Staff Physician] - 3-5 Days EV AUSTIN MD [Staff Physician] - 3-5 Days
[2018-09-06] MEDS ORDERED: XANAX PO ONE (11:25)
[2018-09-06 11:42] LABS: Calcium 8.9 mg/dL (8.4-10.2)
[2018-09-06 12:44] LABS: Chol/HDL Ratio 4.02 %
--- NOTE | 2018-09-06 13:10 | Consultation ---
History of Present Illness Consult date: 09/06/18 Requesting physician: PATO MCDONALD Consult reason: chest pain History of present illness: The pt is a 53-year-old male with a past medical history of ESRD on HD (MWF), osteomyelitis of his left lower extremity, currently on outpatient antibiotics, outpatient hyperbaric medicine, anxiety, HTN, DM. He presented with c/o chest pain. The pt states that he ran out of his Xanax prescription over the weekend. He reports that since the weekend, he's been having intermittent chest pressure, which is nonexertional and nonradiating. It lasts for a few seconds. Pt denies any SOB, palpitations, n/v, diaphoresis, dizziness or syncope. He reports feeling very anxious. He received Xanax in ED and now reports resolution of symptoms. He denies any current chest pain on evaluation. ECG with NSR and no acute ischemic changes. Karina minimally elevated and less than prior admissions. Lexiscan MPI stress test done 05/2015 was negative for significant ischemia, EF 75%. Echo done 05/2015 showed EF 50-55%, mild LVH, impaired relaxation, mild biatrial enlargement, mild TR, mild DC. Past History Past Medical History: other (as per HPI) Medications and Allergies Allergies Allergy/AdvReac Type Severity Reaction Status Date / Time No Known Allergies Allergy Verified 09/06/18 10:32 Home Medications Medication Instructions Recorded Confirmed Last Taken Type Phenergan TAB 25 tab PO DAILY 07/21/18 07/21/18 1 Day Ago History ~07/20/18 Varenicline Tartrate [Chantix] 1 mg PO DAILY 07/21/18 07/21/18 1 Day Ago History ~07/20/18 ALPRAZolam [Xanax TAB] 2 mg PO TID #12 tablet 07/28/18 Unknown Rx Aspirin 325 mg PO QDAY #30 tablet 07/28/18 Unknown Rx Loperamide [Imodium] 2 mg PO Q2H PRN capsule 07/28/18 Unknown Rx Methadone [Dolophine] 10 mg PO DAILY #10 tablet 07/28/18 Unknown Rx Midodrine [Proamatine] 5 mg PO TID #90 tablet 07/28/18 Unknown Rx Multivitamin Tab [Multiple Vitamin 1 each PO QDAY #30 tablet 07/28/18 Unknown Rx TAB (Theragran)] Oxycodone HCl [roxiCODONE] 15 mg PO TID #12 tablet 07/28/18 Unknown Rx Pregabalin [Lyrica] 100 mg PO TID #30 capsule 07/28/18 Unknown Rx Sevelamer Carbonate [Renvela] 4,000 mg PO TIDWM #30 tablet 07/28/18 Unknown Rx Zolpidem [Ambien] 10 mg PO QHS PRN #12 tablet 07/28/18 Unknown Rx tiZANidine 6 mg PO QDAY PRN #12 07/28/18 Unknown Rx Review of Systems Constitutional: no weight loss, no weight gain, no fever, no chills, no sweats Ears, nose, mouth and throat: no ear pain, no nose pain, no sinus pressure, no sinus pain Cardiovascular: chest pain, no orthopnea, no palpitations, no rapid/irregular heart beat, no edema, no syncope, no lightheadedness, no shortness of breath, no dyspnea on exertion, no paroxysmal nocturnal dyspnea, no leg edema Respiratory: no cough, no shortness of breath, no dyspnea on exertion, no congestion, no wheezing, no pain on inspiration Gastrointestinal: no abdominal pain, no nausea, no vomiting, no diarrhea, no constipation, no change in bowel habits Genitourinary Male: no dysuria, no hematuria, no flank pain, no discharge, no urinary frequency, no urinary hesitancy Musculoskeletal: no neck stiffness, no neck pain, no shooting arm pain, no arm numbness/tingling, no low back pain, no shooting leg pain Integumentary: no rash, no pruritis, no redness, no sores, no wounds Neurological: no head injury, no paralysis, no weakness, no parathesias, no numbness, no tingling, no seizures, no syncope Psychiatric: anxiety, anxiety attacks Endocrine: no cold intolerance, no heat intolerance Hematologic/Lymphatic: no easy bruising, no easy bleeding Allergic/Immunologic: no urticaria, no wheezing Physical Examination Vital Signs Temp Pulse Resp BP Pulse Ox 98.4 F 95 H 16 166/100 100 09/06/18 10:43 09/06/18 10:43 09/06/18 10:43 09/06/18 10:43 09/06/18 10:43 General appearance: no acute distress HEENT: Positive: PERRL, Normocephaly, Mucus Membranes Moist Neck: Positive: neck supple, trachea midline Cardiac: Positive: Reg Rate and Rhythm, S1/S2 Lungs: Positive: clear to auscultation Neuro: Positive: Grossly Intact Abdomen: Positive: Soft. Negative: Tender Skin: Negative: Rash, Wound Musculoskeletal: No Pain Extremities: Absent: edema Results 09/06/18 11:07 09/06/18 11:07 Lipids 09/06/18 Range/Units 11:07 Triglycerides 169 H (2-149) mg/dL Cholesterol 173 (50-199) mg/dL HDL Cholesterol 43 (40-59) mg/dL Cholesterol/HDL Ratio 4.02 % CBC 09/06/18 Range/Units 11:07 WBC 3.4 L (4.5-11.0) K/mm3 RBC 3.88 (3.65-5.03) M/mm3 Hgb 11.7 L (11.8-15.2) gm/dl Hct 35.3 L (35.5-45.6) % Plt Count 79 L (140-440) K/mm3 Lymph # 0.7 L (1.2-5.4) K/mm3 [place] # 0.4 (0.0-0.8) K/mm3 Eos # 0.0 (0.0-0.4) K/mm3 Baso # 0.0 (0.0-0.1) K/mm3 Comprehensive Metabolic Panel 09/06/18 Range/Units 11:07 Sodium 134 L (137-145) mmol/L Potassium 3.8 (3.6-5.0) mmol/L Chloride 81.7 L (98-107) mmol/L Carbon Dioxide 34 H (22-30) mmol/L BUN 26 H (9-20) mg/dL Creatinine 7.9 H (0.8-1.5) mg/dL Glucose 134 H (75-100) mg/dL Calcium 8.9 (8.4-10.2) mg/dL - Imaging and Cardiology Echo: report reviewed (05/2015 showed EF 50-55%, mild LVH, impaired relaxation, m ild biatrial enlargement, mild TR, mild DC. ) EKG: report reviewed, image reviewed EKG interpretations - Telemetry EKG Rhythm: Sinus Rhythm - EKG Sinus rhythms and dysrhythmias: sinus rhythm Assessment and Plan Pt presented with atypical chest pain. The pt states that he ran out of his Xanax prescription over the weekend and has since been having intermittent chest pressure and anxiety. He received Xanax in ED and now reports resolution of symptoms. He denies any current chest pain on evaluation. ECG with NSR and no acute ischemic changes. Karina minimally elevated and less than prior admissions. Recommend to obtain one additional set of Karina and pending Karina are flat, pt may discharge home from cardiology standpoint on home cardiac regimen. Will plan for lexiscan MPI stress test in the near future in our office. Recommend for pt to follow up in our office with Dr. Trujillo this week ([phone]). Pt verbalizes understanding and is agreeable to the plan of care. The patient has been seen in conjunction with Dr. Xiomara Allison who agrees with the assessment and plan of care. - Patient Problems (1) Chest pain Current Visit: Yes Status: Resolved Qualifiers: Chest pain type: unspecified Qualified Code(s): R07.9 - Chest pain, unspecified (2) Anxiety Current Visit: Yes Status: Chronic (3) Benzodiazepine dependence Current Visit: Yes Status: Chronic (4) End stage renal disease on dialysis Current Visit: Yes Status: Chronic (5) Elevated troponin I level Current Visit: Yes Status: Chronic (6) Hypertension Current Visit: Yes Status: Chronic (7) Diabetes mellitus Current Visit: Yes Status: Chronic Qualifiers: Diabetes mellitus type: type 2 Diabetes mellitus complication status: with unspecified complications Qualified Code(s): E11.8 - Type 2 diabetes mellitus with unspecified complications (8) History of osteomyelitis Current Visit: Yes Status: Chronic
[2018-09-06 14:17] VITALS: BP 112/75
== END 2018-09-06 14:12 | disposition home or self-care (01) ==
LOC: ED 10:30
DX: R07.89 Other chest pain (principal); F13.20 Sedative, hypnotic or anxiolytic dependence, uncomplicated; E11.22 Type 2 diabetes mellitus with diabetic chronic kidney disease; I12.0 Hypertensive chronic kidney disease with stage 5 chronic kidney disease or end stage renal disease; N18.6 End stage renal disease; F17.200 Nicotine dependence, unspecified, uncomplicated; Z99.2 Dependence on renal dialysis; Z98.890 Other specified postprocedural states
CPT/HCPCS: 36415; 71046; 80048; 80061; 84484; 85025; 93005; 93010

== ENCOUNTER 2018-09-08 08:40 | Emergency (ER) | payer MEDICARE ==
[2018-09-08 08:57] VITALS: BP 117/77
--- NOTE | 2018-09-08 09:09 | Emergency Department Report ---
ED General Adult HPI - General Chief complaint: Neuro Symptoms/Deficit Stated complaint: FLUSH Time Seen by Provider: 09/08/18 09:04 Source: patient, family Mode of arrival: Ambulatory Limitations: No Limitations - History of Present Illness Initial comments: Patient is a 53-year-old male that since emergency room with complaints of tingling sensation in his arms since taking Benadryl. Patient states he took 50 mg yesterday morning and 50 mg last night and since taking the second set of 50 mg he has had this sensation in his arms. Patient states he is on dialysis and he took his dialysis yesterday with no problem. Patient denies chest pain or s hortness of breath. Patient denies difficulties in moving his arms. Patient denies weakness. Patient denies headache. Patient denies blurry vision. -: Sudden Location: upper extremity Consistency: constant (but improving) Improves with: other (time) Worsens with: none Associated Symptoms: denies other symptoms. denies: confusion, chest pain, c ough, diaphoresis, fever/chills, headaches, loss of appetite, malaise, nausea/vomiting, rash, seizure, shortness of breath, syncope, weakness Treatments Prior to Arrival: none - Related Data Home Medications Medication Instructions Recorded Confirmed Last Taken Phenergan TAB 25 tab PO DAILY 07/21/18 07/21/18 1 Day Ago ~07/20/18 Varenicline Tartrate [Chantix] 1 mg PO DAILY 07/21/18 07/21/18 1 Day Ago ~07/20/18 Previous Rx's Medication Instructions Recorded Last Taken Type ALPRAZolam [Xanax TAB] 2 mg PO TID #12 tablet 07/28/18 Unknown Rx Aspirin 325 mg PO QDAY #30 tablet 07/28/18 Unknown Rx Loperamide [Imodium] 2 mg PO Q2H PRN capsule 07/28/18 Unknown Rx Methadone [Dolophine] 10 mg PO DAILY #10 tablet 07/28/18 Unknown Rx Midodrine [Proamatine] 5 mg PO TID #90 tablet 07/28/18 Unknown Rx Multivitamin Tab [Multiple Vitamin 1 each PO QDAY #30 tablet 07/28/18 Unknown Rx TAB (Theragran)] Oxycodone HCl [roxiCODONE] 15 mg PO TID #12 tablet 07/28/18 Unknown Rx Pregabalin [Lyrica] 100 mg PO TID #30 capsule 07/28/18 Unknown Rx Sevelamer Carbonate [Renvela] 4,000 mg PO TIDWM #30 tablet 07/28/18 Unknown Rx Zolpidem [Ambien] 10 mg PO QHS PRN #12 tablet 07/28/18 Unknown Rx tiZANidine 6 mg PO QDAY PRN #12 07/28/18 Unknown Rx Allergies Allergy/AdvReac Type Severity Reaction Status Date / Time No Known Allergies Allergy Verified 09/06/18 10:32 ED Review of Systems ROS: Stated complaint: FLUSH Other details as noted in HPI Constitutional: denies: chills, fever Eyes: denies: eye pain, eye discharge, vision change ENT: denies: ear pain, throat pain Respiratory: denies: cough, shortness of breath, wheezing Cardiovascular: denies: chest pain, palpitations Endocrine: no symptoms reported Gastrointestinal: denies: abdominal pain, nausea, diarrhea Genitourinary: denies: urgency, dysuria Musculoskeletal: denies: back pain, joint swelling, arthralgia Skin: denies: rash, lesions Neurological: denies: headache, weakness, paresthesias Psychiatric: denies: anxiety, depression Hematological/Lymphatic: denies: easy bleeding, easy bruising ED Past Medical Hx - Past Medical History Previous Medical History?: Yes Hx Hypertension: Yes Hx CVA: No Hx Heart Attack/AMI: No Hx Congestive Heart Failure: No Hx Diabetes: Yes Hx Deep Vein Thrombosis: No Hx Pulmonary Embolism: No Hx GERD: Yes Hx Liver Disease: No Hx Renal Disease: Yes Hx Sickle Cell Disease: No Hx Arthritis: Yes Hx Headaches / Migraines: No Hx Seizures: No Hx Kidney Stones: No Hx Asthma: No Hx COPD: No Hx Tuberculosis: No Hx HIV: No Additional medical history: Dialysis shunt right upper arm. Osteomyelitis. - Surgical History Past Surgical History?: Yes Hx Coronary Stent: No Hx Open Heart Surgery: No Hx Pacemaker: No Hx Internal Defibrillator: No Hx Cholecystectomy: No Hx Appendectomy: No Hx Breast Surgery: No Additional Surgical History: "back surgery" - Family History Family history: no significant - Social History Smoking Status: Current Every Day Smoker Substance Use Type: None - Medications Home Medications: Home Medications Medication Instructions Recorded Confirmed Last Taken Type Phenergan TAB 25 tab PO DAILY 07/21/18 07/21/18 1 Day Ago History ~07/20/18 Varenicline Tartrate [Chantix] 1 mg PO DAILY 07/21/18 07/21/18 1 Day Ago History ~07/20/18 ALPRAZolam [Xanax TAB] 2 mg PO TID #12 tablet 07/28/18 Unknown Rx Aspirin 325 mg PO QDAY #30 tablet 07/28/18 Unknown Rx Loperamide [Imodium] 2 mg PO Q2H PRN capsule 07/28/18 Unknown Rx Methadone [Dolophine] 10 mg PO DAILY #10 tablet 07/28/18 Unknown Rx Midodrine [Proamatine] 5 mg PO TID #90 tablet 07/28/18 Unknown Rx Multivitamin Tab [Multiple Vitamin 1 each PO QDAY #30 tablet 07/28/18 Unknown Rx TAB (Theragran)] Oxycodone HCl [roxiCODONE] 15 mg PO TID #12 tablet 07/28/18 Unknown Rx Pregabalin [Lyrica] 100 mg PO TID #30 capsule 07/28/18 Unknown Rx Sevelamer Carbonate [Renvela] 4,000 mg PO TIDWM #30 tablet 07/28/18 Unknown Rx Zolpidem [Ambien] 10 mg PO QHS PRN #12 tablet 07/28/18 Unknown Rx tiZANidine 6 mg PO QDAY PRN #12 07/28/18 Unknown Rx ED Physical Exam - General Limitations: No Limitations General appearance: alert, in no apparent distress - Head Head exam: Present: atraumatic, normocephalic - Eye Eye exam: Present: normal appearance - ENT ENT exam: Present: mucous membranes moist - Neck Neck exam: Present: normal inspection - Respiratory Respiratory exam: Present: normal lung sounds bilaterally. Absent: respiratory distress - Cardiovascular Cardiovascular Exam: Present: regular rate, normal rhythm. Absent: systolic murmur, diastolic murmur, rubs, gallop - GI/Abdominal GI/Abdominal exam: Present: soft, normal bowel sounds. Absent: distended, tenderness, guarding - Rectal Rectal exam: Present: deferred - Extremities Exam Extremities exam: Present: normal inspection (right upper extremity dialysis shunt) - Back Exam Back exam: Present: normal inspection - Neurological Exam Neurological exam: Present: alert, oriented X3 - Psychiatric Psychiatric exam: Present: normal affect, normal mood - Skin Skin exam: Present: warm, dry, intact, normal color. Absent: rash ED Course Vital Signs 09/08/18 08:53 Temperature 98.9 F Pulse Rate 90 Respiratory 16 Rate Blood Pressure 117/77 O2 Sat by Pulse 96 Oximetry - Reevaluation(s) Reevaluation #1: Patient states his arm tingling has resolved. Discussed all results with patient. Patient is stable for discharge. Patient be discharged home. Patient agrees to plan of care. Discussed all discharge instructions the patient. Patient voiced understanding of discharge instructions 09/08/18 10:04 ED Medical Decision Making - Lab Data Result diagrams: 09/08/18 09:13 09/08/18 09:13 - Medical Decision Making Patient is a 53-year-old male presents emergency room with complaints of bilateral arm tingling after taking Benadryl. Patient's symptoms all resolved in the ER. Patient's symptoms and presentation appears to be secondary to Quique adryl and chronic kidney disease. Patient given discharge instructions. Patient's labs unremarkable except for abnormal kidney function. - Differential Diagnosis medication side effect. Arm tingling Critical care attestation.: If time is entered above; I have spent that time in minutes in the direct care of this critically ill patient, excluding procedure time. ED Disposition Clinical Impression: End stage renal disease on dialysis, Tingling of left upper extremity, Tingling of right upper extremity, Medication side effect Disposition: -01 TO HOME OR SELFCARE Is pt being admited?: No Does the pt Need Aspirin: No Condition: Stable Additional Instructions: Patient to follow-up with primary care in 2-3 days. She did follow up with neurologist in 2-3 days. Patient to stop taking Benadryl. Patient to take Tylenol or ibuprofen when necessary for pain. Patient to return to ER if condition worsens. Patient to take meds as directed. Patient to increase water. Patient to rest. Patient to continue all meds. Referrals: MINNIE GROSSMAN MD [Primary Care Provider] - 2-3 Days Time of Disposition: 10:07 - Assessment Assessment Interval: Baseline - Level of Consciousness 1a. Level of Consciousness: alert/keenly responsive - LOC Questions 1b. LOC Questions: answers both correctly - LOC Command 1c. LOC Commands: performs tasks correctly - Best Gaze 2. Best Gaze: normal - Visual 3. Visual: no visual loss - Facial Palsy 4. Facial Palsy: normal symmetrical movement - Motor Arm 5a. Motor Arm Left: no drift 5b. Motor Arm Right: no drift - Motor Leg 6a. Motor Leg Left: no drift 6b. Motor Leg Right: no drift - Limb Ataxia 7. Limb Ataxia: absent - Sensory 8. Sensory: normal - Best Language 9. Best Language: no aphasia - Dysarthria 10. Dysarthria: normal - Extinction and Inattention 11. Extinction/Inattention: no abnormality - Scoring Total Score: 0 Stroke Severity: No Stroke Symptoms
[2018-09-08 09:37] LABS: Hematocrit 33.8 % (35.5-45.6); Hemoglobin 11.1 gm/dl (11.8-15.2); Mean Corpuscular HGB Conc 33 % (32-34); Mean Corpuscular Volume 93 fl (84-94); Red Blood Count 3.65 M/mm3 (3.65-5.03); Red Cell Distribution Width 19.7 % (13.2-15.2)
[2018-09-08 09:43] LABS: Platelet Count 75 K/mm3 (140-440)
[2018-09-08 09:48] LABS: Albumin 4.2 g/dL (3.9-5); BUN/Creatinine Ratio 3; Blood Urea Nitrogen 20 mg/dL (9-20); Calcium 8.5 mg/dL (8.4-10.2); Hemolysis Index 9
[2018-09-08 09:54] LABS: Alanine Aminotransferase < 5 units/L (7-56)
== END 2018-09-08 10:41 | disposition home or self-care (01) ==
LOC: ED 08:40
DX: I12.0 Hypertensive chronic kidney disease with stage 5 chronic kidney disease or end stage renal disease (principal); N18.6 End stage renal disease; Z99.2 Dependence on renal dialysis; E11.22 Type 2 diabetes mellitus with diabetic chronic kidney disease; K21.9 Gastro-esophageal reflux disease without esophagitis; M19.90 Unspecified osteoarthritis, unspecified site; F17.200 Nicotine dependence, unspecified, uncomplicated; Z79.82 Long term (current) use of aspirin
CPT/HCPCS: 36415; 80053; 85027; 99283

== ENCOUNTER 2018-09-08 12:39 | Outpatient (CLI) | payer MEDICARE ==
[2018-09-08] MEDS ORDERED: SODIUM CHLORIDE FLUSH SYRINGE 10 ML IV PRN (13:26)
[2018-09-08] MEDS ORDERED: XYLOCAINE TOPICAL 4% TP ONE (13:51)
== END 2018-09-08 12:40 | disposition home or self-care (01) ==
LOC: WOUND 12:39
PROVIDERS: ATTEND Surgery
DX: E11.621 Type 2 diabetes mellitus with foot ulcer (principal); L97.521 Non-pressure chronic ulcer of other part of left foot limited to breakdown of skin; E11.69 Type 2 diabetes mellitus with other specified complication; M86.672 Other chronic osteomyelitis, left ankle and foot; E11.22 Type 2 diabetes mellitus with diabetic chronic kidney disease; I12.0 Hypertensive chronic kidney disease with stage 5 chronic kidney disease or end stage renal disease; N18.6 End stage renal disease; F32.9 Major depressive disorder, single episode, unspecified; Z99.2 Dependence on renal dialysis
CPT/HCPCS: 82962; 99183; G0277

== ENCOUNTER 2018-09-09 07:48 | Outpatient (CLI) | payer MEDICARE | END 2018-09-09 07:49 | disposition home or self-care (01) | LOC: WOUND 07:48 | PROVIDERS: ATTEND Surgery | DX: E11.621 Type 2 diabetes mellitus with foot ulcer (principal); L97.521 Non-pressure chronic ulcer of other part of left foot limited to breakdown of skin; E11.69 Type 2 diabetes mellitus with other specified complication; M86.672 Other chronic osteomyelitis, left ankle and foot; E11.22 Type 2 diabetes mellitus with diabetic chronic kidney disease; I12.0 Hypertensive chronic kidney disease with stage 5 chronic kidney disease or end stage renal disease; N18.6 End stage renal disease; F32.9 Major depressive disorder, single episode, unspecified; Z99.2 Dependence on renal dialysis | CPT/HCPCS: 82962; 99183; G0277 ==

== ENCOUNTER 2018-09-12 12:57 | Outpatient (CLI) | payer MEDICARE | END 2018-09-12 12:58 | disposition home or self-care (01) | LOC: WOUND 12:57 | PROVIDERS: ATTEND Surgery | DX: E11.621 Type 2 diabetes mellitus with foot ulcer (principal); L97.521 Non-pressure chronic ulcer of other part of left foot limited to breakdown of skin; E11.69 Type 2 diabetes mellitus with other specified complication; M86.672 Other chronic osteomyelitis, left ankle and foot; E11.22 Type 2 diabetes mellitus with diabetic chronic kidney disease; I12.0 Hypertensive chronic kidney disease with stage 5 chronic kidney disease or end stage renal disease; N18.6 End stage renal disease; F32.9 Major depressive disorder, single episode, unspecified; Z99.2 Dependence on renal dialysis | CPT/HCPCS: 82962; 99183; G0277 ==

== ENCOUNTER 2018-09-13 07:58 | Outpatient (CLI) | payer MEDICARE | END 2018-09-13 07:59 | disposition home or self-care (01) | LOC: WOUND 07:58 | PROVIDERS: ATTEND Surgery | DX: E11.621 Type 2 diabetes mellitus with foot ulcer (principal); L97.521 Non-pressure chronic ulcer of other part of left foot limited to breakdown of skin; E11.69 Type 2 diabetes mellitus with other specified complication; M86.672 Other chronic osteomyelitis, left ankle and foot; E11.22 Type 2 diabetes mellitus with diabetic chronic kidney disease; I12.0 Hypertensive chronic kidney disease with stage 5 chronic kidney disease or end stage renal disease; N18.6 End stage renal disease; F32.9 Major depressive disorder, single episode, unspecified; Z99.2 Dependence on renal dialysis | CPT/HCPCS: 82962; G0277; 99183 ==

== ENCOUNTER 2018-09-14 07:38 | Outpatient (CLI) | payer MEDICARE | END 2018-09-14 07:39 | disposition home or self-care (01) | LOC: WOUND 07:38 | PROVIDERS: ATTEND Surgery | DX: E11.621 Type 2 diabetes mellitus with foot ulcer (principal); L97.521 Non-pressure chronic ulcer of other part of left foot limited to breakdown of skin; E11.69 Type 2 diabetes mellitus with other specified complication; M86.672 Other chronic osteomyelitis, left ankle and foot; E11.22 Type 2 diabetes mellitus with diabetic chronic kidney disease; I12.0 Hypertensive chronic kidney disease with stage 5 chronic kidney disease or end stage renal disease; N18.6 End stage renal disease; F32.9 Major depressive disorder, single episode, unspecified; Z99.2 Dependence on renal dialysis | CPT/HCPCS: 82962; G0277; 99183 ==

== ENCOUNTER 2018-09-15 08:48 | Outpatient (CLI) | payer MEDICARE ==
[2018-09-15] MEDS ORDERED: XYLOCAINE TOPICAL 4% TP ONE (09:30)
[2018-09-15] MEDS ORDERED: SODIUM CHLORIDE FLUSH SYRINGE 10 ML IV PRN (09:48)
== END 2018-09-15 08:49 | disposition home or self-care (01) ==
LOC: WOUND 08:48
PROVIDERS: ATTEND Surgery
DX: E11.621 Type 2 diabetes mellitus with foot ulcer (principal); L97.521 Non-pressure chronic ulcer of other part of left foot limited to breakdown of skin; E11.69 Type 2 diabetes mellitus with other specified complication; M86.672 Other chronic osteomyelitis, left ankle and foot; E11.22 Type 2 diabetes mellitus with diabetic chronic kidney disease; I12.0 Hypertensive chronic kidney disease with stage 5 chronic kidney disease or end stage renal disease; N18.6 End stage renal disease; F32.9 Major depressive disorder, single episode, unspecified; Z99.2 Dependence on renal dialysis
CPT/HCPCS: 15275; 82962; G0277; Q4158; 99183

== ENCOUNTER 2018-09-16 07:40 | Outpatient (CLI) | payer MEDICARE | END 2018-09-16 07:41 | disposition home or self-care (01) | LOC: WOUND 07:40 | PROVIDERS: ATTEND Surgery | DX: E11.621 Type 2 diabetes mellitus with foot ulcer (principal); L97.511 Non-pressure chronic ulcer of other part of right foot limited to breakdown of skin; E11.69 Type 2 diabetes mellitus with other specified complication; M86.672 Other chronic osteomyelitis, left ankle and foot; E11.22 Type 2 diabetes mellitus with diabetic chronic kidney disease; I12.0 Hypertensive chronic kidney disease with stage 5 chronic kidney disease or end stage renal disease; N18.6 End stage renal disease; F32.9 Major depressive disorder, single episode, unspecified; Z99.2 Dependence on renal dialysis | CPT/HCPCS: 82962; G0277; 99183 ==

== ENCOUNTER 2018-09-19 07:56 | Outpatient (CLI) | payer MEDICARE | END 2018-09-19 07:57 | disposition home or self-care (01) | LOC: WOUND 07:56 | PROVIDERS: ATTEND Internal Medicine | DX: E11.621 Type 2 diabetes mellitus with foot ulcer (principal); L97.521 Non-pressure chronic ulcer of other part of left foot limited to breakdown of skin; E11.69 Type 2 diabetes mellitus with other specified complication; M86.672 Other chronic osteomyelitis, left ankle and foot; E11.22 Type 2 diabetes mellitus with diabetic chronic kidney disease; I12.0 Hypertensive chronic kidney disease with stage 5 chronic kidney disease or end stage renal disease; N18.6 End stage renal disease; F32.9 Major depressive disorder, single episode, unspecified; Z99.2 Dependence on renal dialysis | CPT/HCPCS: 82962; G0277; 99183 ==

== ENCOUNTER 2018-09-20 07:52 | Outpatient (CLI) | payer MEDICARE | END 2018-09-20 07:53 | disposition home or self-care (01) | LOC: WOUND 07:52 | PROVIDERS: ATTEND Surgery | DX: E11.621 Type 2 diabetes mellitus with foot ulcer (principal); L97.521 Non-pressure chronic ulcer of other part of left foot limited to breakdown of skin; E11.69 Type 2 diabetes mellitus with other specified complication; M86.672 Other chronic osteomyelitis, left ankle and foot; E11.22 Type 2 diabetes mellitus with diabetic chronic kidney disease; I12.0 Hypertensive chronic kidney disease with stage 5 chronic kidney disease or end stage renal disease; N18.6 End stage renal disease; F32.9 Major depressive disorder, single episode, unspecified; Z99.2 Dependence on renal dialysis | CPT/HCPCS: 82962; G0277; 99183 ==

== ENCOUNTER 2018-09-21 07:56 | Outpatient (CLI) | payer MEDICARE | END 2018-09-21 07:57 | disposition home or self-care (01) | LOC: WOUND 07:56 | PROVIDERS: ATTEND Surgery | DX: E11.621 Type 2 diabetes mellitus with foot ulcer (principal); L97.521 Non-pressure chronic ulcer of other part of left foot limited to breakdown of skin; E11.69 Type 2 diabetes mellitus with other specified complication; M86.672 Other chronic osteomyelitis, left ankle and foot; E11.22 Type 2 diabetes mellitus with diabetic chronic kidney disease; I12.0 Hypertensive chronic kidney disease with stage 5 chronic kidney disease or end stage renal disease; N18.6 End stage renal disease; F32.9 Major depressive disorder, single episode, unspecified; Z99.2 Dependence on renal dialysis | CPT/HCPCS: 82962; 99183; G0277 ==

== ENCOUNTER 2018-09-22 07:38 | Outpatient (CLI) | payer MEDICARE ==
[2018-09-22] MEDS ORDERED: SODIUM CHLORIDE FLUSH SYRINGE 10 ML IV PRN (10:17)
[2018-09-22] MEDS ORDERED: XYLOCAINE TOPICAL 4% TP ONE (11:00)
== END 2018-09-22 07:39 | disposition home or self-care (01) ==
LOC: WOUND 07:38
PROVIDERS: ATTEND Surgery
DX: E11.621 Type 2 diabetes mellitus with foot ulcer (principal); L97.521 Non-pressure chronic ulcer of other part of left foot limited to breakdown of skin; E11.69 Type 2 diabetes mellitus with other specified complication; M86.672 Other chronic osteomyelitis, left ankle and foot; E11.22 Type 2 diabetes mellitus with diabetic chronic kidney disease; I12.0 Hypertensive chronic kidney disease with stage 5 chronic kidney disease or end stage renal disease; N18.6 End stage renal disease; F32.9 Major depressive disorder, single episode, unspecified; Z99.2 Dependence on renal dialysis
CPT/HCPCS: 15275; 82962; G0277; Q4158; 99183

== ENCOUNTER 2018-09-23 07:47 | Outpatient (CLI) | payer MEDICARE | END 2018-09-23 07:48 | disposition home or self-care (01) | LOC: WOUND 07:47 | PROVIDERS: ATTEND Surgery | DX: E11.621 Type 2 diabetes mellitus with foot ulcer (principal); L97.521 Non-pressure chronic ulcer of other part of left foot limited to breakdown of skin; E11.69 Type 2 diabetes mellitus with other specified complication; M86.672 Other chronic osteomyelitis, left ankle and foot; E11.22 Type 2 diabetes mellitus with diabetic chronic kidney disease; I12.0 Hypertensive chronic kidney disease with stage 5 chronic kidney disease or end stage renal disease; N18.6 End stage renal disease; F32.9 Major depressive disorder, single episode, unspecified; Z99.2 Dependence on renal dialysis | CPT/HCPCS: 82962; 99183; G0277 ==

== ENCOUNTER 2018-09-26 08:51 | Outpatient (CLI) | payer MEDICARE | END 2018-09-26 08:52 | disposition home or self-care (01) | LOC: WOUND 08:51 | PROVIDERS: ATTEND Surgery | DX: E11.621 Type 2 diabetes mellitus with foot ulcer (principal); L97.521 Non-pressure chronic ulcer of other part of left foot limited to breakdown of skin; E11.69 Type 2 diabetes mellitus with other specified complication; M86.672 Other chronic osteomyelitis, left ankle and foot; E11.22 Type 2 diabetes mellitus with diabetic chronic kidney disease; I12.0 Hypertensive chronic kidney disease with stage 5 chronic kidney disease or end stage renal disease; N18.6 End stage renal disease; F32.9 Major depressive disorder, single episode, unspecified; Z99.2 Dependence on renal dialysis | CPT/HCPCS: 82962; 99183; G0277 ==

== ENCOUNTER 2018-09-27 13:13 | Outpatient (CLI) | payer MEDICARE | END 2018-09-27 13:14 | disposition home or self-care (01) | LOC: WOUND 13:13 | PROVIDERS: ATTEND Surgery | DX: E11.621 Type 2 diabetes mellitus with foot ulcer (principal); L97.521 Non-pressure chronic ulcer of other part of left foot limited to breakdown of skin; E11.69 Type 2 diabetes mellitus with other specified complication; M86.672 Other chronic osteomyelitis, left ankle and foot; I12.0 Hypertensive chronic kidney disease with stage 5 chronic kidney disease or end stage renal disease; E11.22 Type 2 diabetes mellitus with diabetic chronic kidney disease; N18.6 End stage renal disease; F32.9 Major depressive disorder, single episode, unspecified; Z99.2 Dependence on renal dialysis | CPT/HCPCS: 82962; G0277; 99183 ==

== ENCOUNTER 2018-09-28 07:54 | Outpatient (CLI) | payer MEDICARE | END 2018-09-28 07:55 | disposition home or self-care (01) | LOC: WOUND 07:54 | PROVIDERS: ATTEND Surgery | DX: E11.621 Type 2 diabetes mellitus with foot ulcer (principal); L97.521 Non-pressure chronic ulcer of other part of left foot limited to breakdown of skin; E11.69 Type 2 diabetes mellitus with other specified complication; M86.672 Other chronic osteomyelitis, left ankle and foot; E11.22 Type 2 diabetes mellitus with diabetic chronic kidney disease; I12.0 Hypertensive chronic kidney disease with stage 5 chronic kidney disease or end stage renal disease; N18.6 End stage renal disease; F32.9 Major depressive disorder, single episode, unspecified; Z99.2 Dependence on renal dialysis | CPT/HCPCS: 82962; G0277; 99183 ==

== ENCOUNTER 2018-09-29 07:49 | Outpatient (CLI) | payer MEDICARE ==
[2018-09-29] MEDS ORDERED: XYLOCAINE TOPICAL 4% TP ONE (11:00)
== END 2018-09-29 07:50 | disposition home or self-care (01) ==
LOC: WOUND 07:49
PROVIDERS: ATTEND Surgery
DX: E11.621 Type 2 diabetes mellitus with foot ulcer (principal); L97.521 Non-pressure chronic ulcer of other part of left foot limited to breakdown of skin; E11.69 Type 2 diabetes mellitus with other specified complication; M86.672 Other chronic osteomyelitis, left ankle and foot; E11.22 Type 2 diabetes mellitus with diabetic chronic kidney disease; I12.0 Hypertensive chronic kidney disease with stage 5 chronic kidney disease or end stage renal disease; N18.6 End stage renal disease; F32.9 Major depressive disorder, single episode, unspecified; Z99.2 Dependence on renal dialysis
CPT/HCPCS: 15275; 82962; G0277; Q4158; 99183

== ENCOUNTER 2018-09-30 08:01 | Outpatient (CLI) | payer MEDICARE | END 2018-09-30 08:02 | disposition home or self-care (01) | LOC: WOUND 08:01 | PROVIDERS: ATTEND Surgery | DX: E11.621 Type 2 diabetes mellitus with foot ulcer (principal); L97.521 Non-pressure chronic ulcer of other part of left foot limited to breakdown of skin; E11.69 Type 2 diabetes mellitus with other specified complication; M86.672 Other chronic osteomyelitis, left ankle and foot; E11.22 Type 2 diabetes mellitus with diabetic chronic kidney disease; I12.0 Hypertensive chronic kidney disease with stage 5 chronic kidney disease or end stage renal disease; N18.6 End stage renal disease; F32.9 Major depressive disorder, single episode, unspecified; Z99.2 Dependence on renal dialysis | CPT/HCPCS: 82962; G0277; 99183 ==

== ENCOUNTER 2018-10-03 07:50 | Outpatient (CLI) | payer MEDICARE | END 2018-10-03 07:51 | disposition home or self-care (01) | LOC: WOUND 07:50 | PROVIDERS: ATTEND Surgery | DX: E11.621 Type 2 diabetes mellitus with foot ulcer (principal); L97.521 Non-pressure chronic ulcer of other part of left foot limited to breakdown of skin; E11.69 Type 2 diabetes mellitus with other specified complication; M86.672 Other chronic osteomyelitis, left ankle and foot; E11.22 Type 2 diabetes mellitus with diabetic chronic kidney disease; I12.0 Hypertensive chronic kidney disease with stage 5 chronic kidney disease or end stage renal disease; N18.6 End stage renal disease; F32.9 Major depressive disorder, single episode, unspecified; Z99.2 Dependence on renal dialysis | CPT/HCPCS: 82962; G0277; 99183 ==

== ENCOUNTER 2018-10-04 07:53 | Outpatient (CLI) | payer MEDICARE | END 2018-10-04 07:54 | disposition home or self-care (01) | LOC: WOUND 07:53 | PROVIDERS: ATTEND Surgery | DX: E11.621 Type 2 diabetes mellitus with foot ulcer (principal); L97.521 Non-pressure chronic ulcer of other part of left foot limited to breakdown of skin; E11.69 Type 2 diabetes mellitus with other specified complication; M86.672 Other chronic osteomyelitis, left ankle and foot; E11.22 Type 2 diabetes mellitus with diabetic chronic kidney disease; I12.0 Hypertensive chronic kidney disease with stage 5 chronic kidney disease or end stage renal disease; N18.6 End stage renal disease; F32.9 Major depressive disorder, single episode, unspecified; Z99.2 Dependence on renal dialysis | CPT/HCPCS: 82962; 99183; G0277 ==

== ENCOUNTER 2018-10-05 08:04 | Outpatient (CLI) | payer MEDICARE | END 2018-10-05 08:05 | disposition home or self-care (01) | LOC: WOUND 08:04 | PROVIDERS: ATTEND Surgery | DX: E11.621 Type 2 diabetes mellitus with foot ulcer (principal); L97.521 Non-pressure chronic ulcer of other part of left foot limited to breakdown of skin; E11.69 Type 2 diabetes mellitus with other specified complication; M86.672 Other chronic osteomyelitis, left ankle and foot; E11.22 Type 2 diabetes mellitus with diabetic chronic kidney disease; I12.0 Hypertensive chronic kidney disease with stage 5 chronic kidney disease or end stage renal disease; N18.6 End stage renal disease; F32.9 Major depressive disorder, single episode, unspecified; Z99.2 Dependence on renal dialysis | CPT/HCPCS: 82962; 99183; G0277 ==

== ENCOUNTER 2018-10-06 07:55 | Outpatient (CLI) | payer MEDICARE ==
[2018-10-06] MEDS ORDERED: SODIUM CHLORIDE FLUSH SYRINGE 10 ML IV PRN (10:00)
[2018-10-06] MEDS ORDERED: XYLOCAINE TOPICAL 4% TP NR (10:00)
== END 2018-10-06 07:56 | disposition home or self-care (01) ==
LOC: WOUND 07:55
PROVIDERS: ATTEND Surgery
DX: E11.621 Type 2 diabetes mellitus with foot ulcer (principal); L97.521 Non-pressure chronic ulcer of other part of left foot limited to breakdown of skin; E11.69 Type 2 diabetes mellitus with other specified complication; M86.672 Other chronic osteomyelitis, left ankle and foot; E11.22 Type 2 diabetes mellitus with diabetic chronic kidney disease; I12.0 Hypertensive chronic kidney disease with stage 5 chronic kidney disease or end stage renal disease; N18.6 End stage renal disease; F32.9 Major depressive disorder, single episode, unspecified; Z99.2 Dependence on renal dialysis
CPT/HCPCS: 15275; 82962; G0277; Q4158; 99183

== ENCOUNTER 2018-10-07 07:57 | Outpatient (CLI) | payer MEDICARE | END 2018-10-07 07:58 | disposition home or self-care (01) | LOC: WOUND 07:57 | PROVIDERS: ATTEND Surgery | DX: E11.621 Type 2 diabetes mellitus with foot ulcer (principal); L97.521 Non-pressure chronic ulcer of other part of left foot limited to breakdown of skin; E11.69 Type 2 diabetes mellitus with other specified complication; M86.672 Other chronic osteomyelitis, left ankle and foot; E11.22 Type 2 diabetes mellitus with diabetic chronic kidney disease; I12.0 Hypertensive chronic kidney disease with stage 5 chronic kidney disease or end stage renal disease; N18.6 End stage renal disease; F32.9 Major depressive disorder, single episode, unspecified; Z99.2 Dependence on renal dialysis | CPT/HCPCS: 82962; G0277; 15275; 99183; Q4158 ==

== ENCOUNTER 2018-10-10 08:00 | Outpatient (CLI) | payer MEDICARE | END 2018-10-10 08:01 | disposition home or self-care (01) | LOC: WOUND 08:00 | PROVIDERS: ATTEND Surgery | DX: E11.621 Type 2 diabetes mellitus with foot ulcer (principal); L97.521 Non-pressure chronic ulcer of other part of left foot limited to breakdown of skin; E11.69 Type 2 diabetes mellitus with other specified complication; M86.672 Other chronic osteomyelitis, left ankle and foot; E11.22 Type 2 diabetes mellitus with diabetic chronic kidney disease; I12.0 Hypertensive chronic kidney disease with stage 5 chronic kidney disease or end stage renal disease; N18.6 End stage renal disease; F32.9 Major depressive disorder, single episode, unspecified; Z99.2 Dependence on renal dialysis | CPT/HCPCS: 82962; G0277; 99183 ==

== ENCOUNTER 2018-10-12 07:49 | Outpatient (CLI) | payer MEDICARE | END 2018-10-12 07:50 | disposition home or self-care (01) | LOC: WOUND 07:49 | PROVIDERS: ATTEND Surgery | DX: E11.621 Type 2 diabetes mellitus with foot ulcer (principal); L97.521 Non-pressure chronic ulcer of other part of left foot limited to breakdown of skin; E11.69 Type 2 diabetes mellitus with other specified complication; M86.672 Other chronic osteomyelitis, left ankle and foot; E11.22 Type 2 diabetes mellitus with diabetic chronic kidney disease; I12.0 Hypertensive chronic kidney disease with stage 5 chronic kidney disease or end stage renal disease; N18.6 End stage renal disease; F32.9 Major depressive disorder, single episode, unspecified; Z99.2 Dependence on renal dialysis | CPT/HCPCS: 82962; G0277; 99183 ==

== ENCOUNTER 2018-10-14 07:55 | Outpatient (CLI) | payer MEDICARE | END 2018-10-14 07:56 | disposition home or self-care (01) | LOC: WOUND 07:55 | PROVIDERS: ATTEND Surgery | DX: E11.621 Type 2 diabetes mellitus with foot ulcer (principal); L97.521 Non-pressure chronic ulcer of other part of left foot limited to breakdown of skin; E11.69 Type 2 diabetes mellitus with other specified complication; M86.672 Other chronic osteomyelitis, left ankle and foot; E11.22 Type 2 diabetes mellitus with diabetic chronic kidney disease; I12.0 Hypertensive chronic kidney disease with stage 5 chronic kidney disease or end stage renal disease; N18.6 End stage renal disease; F32.9 Major depressive disorder, single episode, unspecified; Z99.2 Dependence on renal dialysis | CPT/HCPCS: 82962 ==

== ENCOUNTER 2018-10-14 12:46 | Outpatient (CLI) | payer MEDICARE ==
[2018-10-14] MEDS ORDERED: XYLOCAINE TOPICAL 4% TP ONE (12:52)
[2018-10-14] MEDS ORDERED: SILVER NITRATE TP ONE (12:52)
[2018-10-14] MEDS ORDERED: SODIUM CHLORIDE FLUSH SYRINGE 10 ML IV PRN (12:52)
== END 2018-10-14 12:47 | disposition home or self-care (01) ==
LOC: WOUND 12:46
PROVIDERS: ATTEND Surgery
DX: E11.621 Type 2 diabetes mellitus with foot ulcer (principal); L97.521 Non-pressure chronic ulcer of other part of left foot limited to breakdown of skin; E11.69 Type 2 diabetes mellitus with other specified complication; M86.672 Other chronic osteomyelitis, left ankle and foot; E11.22 Type 2 diabetes mellitus with diabetic chronic kidney disease; I12.0 Hypertensive chronic kidney disease with stage 5 chronic kidney disease or end stage renal disease; N18.6 End stage renal disease; F32.9 Major depressive disorder, single episode, unspecified; Z99.2 Dependence on renal dialysis
CPT/HCPCS: 99183; G0277

== ENCOUNTER 2018-10-18 09:05 | Outpatient (CLI) | payer MEDICARE | END 2018-10-18 09:06 | disposition home or self-care (01) | LOC: WOUND 09:05 | PROVIDERS: ATTEND Surgery | DX: E11.621 Type 2 diabetes mellitus with foot ulcer (principal); L97.521 Non-pressure chronic ulcer of other part of left foot limited to breakdown of skin; E11.69 Type 2 diabetes mellitus with other specified complication; M86.672 Other chronic osteomyelitis, left ankle and foot; E11.22 Type 2 diabetes mellitus with diabetic chronic kidney disease; I12.0 Hypertensive chronic kidney disease with stage 5 chronic kidney disease or end stage renal disease; N18.6 End stage renal disease; F32.9 Major depressive disorder, single episode, unspecified; Z99.2 Dependence on renal dialysis ==

== ENCOUNTER 2018-10-20 08:25 | Observation (INO) | payer MEDICARE ==
[2018-10-20] MEDS ORDERED: ECOTRIN PO ONE (08:59)
[2018-10-20] MEDS: NACL 0.9% 500 ML 500 ML IV SCH ×2 (10:06→12:14)
[2018-10-20 10:20] LABS: Basophils % (Auto) 0.4 % (0.0-1.8); Eosinophils # (Auto) 0.1 K/mm3 (0.0-0.4); Eosinophils % (Auto) 1.7 % (0.0-4.3); Hemoglobin 11.5 gm/dl (11.8-15.2); Lymphocytes # (Auto) 0.8 K/mm3 (1.2-5.4); Lymphocytes % (Auto) 23.3 % (13.4-35.0); Mean Corpuscular HGB Conc 33 % (32-34); Mean Corpuscular Volume 93 fl (84-94); Monocytes # (Auto) 0.4 K/mm3 (0.0-0.8); Monocytes % (Auto) 11.4 % (0.0-7.3); Platelet Count 128 K/mm3 (140-440); Red Blood Count 3.75 M/mm3 (3.65-5.03); Red Cell Distribution Width 19.5 % (13.2-15.2)
[2018-10-20 10:37] LABS: Calcium 9.3 mg/dL (8.4-10.2); INR 1.18 (0.87-1.13)
[2018-10-20 10:38] LABS: Partial Thromboplastin Time 34.4 Sec. (24.2-36.6)
[2018-10-20] MEDS ORDERED: VERSED ONE (12:06)
[2018-10-20] MEDS ORDERED: SUBLIMAZE ONE (12:07)
[2018-10-20] MEDS ORDERED: XYLOCAINE 2% INFILTRATI ONE (12:07)
[2018-10-20] MEDS ORDERED: HEPARIN/NS 5000 UNIT/500ML(CATH LAB) 1,000 ML IR ONE (12:07)
[2018-10-20] MEDS ORDERED: HEPARIN 10,000 UNITS/10 ML ONE (12:07)
[2018-10-20] MEDS ORDERED: NITROGLYCERIN SYRINGE 3 ML ONE (12:41)
[2018-10-20] MEDS ORDERED: PLAVIX ONE (12:54)
[2018-10-20] MEDS ORDERED: ALUM-MAG HYDROX-SIMETH 200-200-20MG/5ML ONE (12:55)
--- NOTE | 2018-10-20 13:50 | Cardiac Catherization Report ---
CARDIAC CATHETERIZATION REFERRING PHYSICIAN: Dr. Trujillo. INDICATIONS FOR PROCEDURE: The patient is an exceedingly pleasant 53-year-old -German gentleman who had an abnormal stress test and has been having shortness of breath on exertion, thought to be an anginal equivalent. He is on antianginal medications including beta blockade. He has diabetes and is a smoker. Risks, benefits, alternatives discussed at length prior to obtaining informed consent. PROCEDURE IN DETAIL: The patient was brought to the catheterization lab in a postabsorptive state. Given that he is a dialysis patient, a groin approach was used. We used an 8 mL of 2% lidocaine to anesthetize the right groin. A standard 6-Citizen [place] sheath was used to cannulate the right common femoral artery via modified Seldinger technique. All exchanges performed to exchange a J-tip guidewire. JL3.5 catheter used to engage the left main. No dampening or ventricularization. Cineangiography performed in all projections. JR4 catheter was used to cross the aortic valve under fluoroscopic guidance. Left ventriculography performed in 30 AGUILAR and 30 CZECH projections via hand injections, catheter flushed. Manual pullback performed with continuous pressure monitoring. Catheter used to engage the right coronary. No dampening or ventricularization. Cineangiography performed in all projections. DATA: Aortic pressure is 150/80, LV pressure is 150, LVEDP of 10 mmHg. Left ventriculography reveals normal left ventricular systolic performance, estimated ejection fraction of 50-55%. No evidence of aortic stenosis. Normal LVEDP. CORONARY ANATOMY: This is a left dominant system. Right coronary is small, nondominant. Left main without significant disease, bifurcates left anterior descending and left circumflex. Left circumflex, moderate sized vessel, courses AV groove, tortuous, but no significant disease. LAD is a moderate sized vessel, courses anterior intergroove, wraps around the apex. There is a 99% mid LAD stenosis noted. This is the culprit vessel. This is a wraparound LAD, which feeds most inferior wall ischemia is noted. Inferior apical on stress test corresponds to this culprit lesion. We turned our attention to PCI at this point, heparin was given and aspirin and Plavix loaded. Abnormal ACT confirmed. We used an EBU 3.75 guide to engage the left main without difficulty. A [place] wire was used to cross the lesion without difficulty. Direct stented with [place] 2.75 x 12 at 12 JOSE ROBERTO for 30 seconds. Excellent angiographic result. Intravascular ultrasound was performed throughout the LAD and left main. The stent is well-opposed and well expanded. The patient is chest pain free, doing well. There is a 40-50% mid LAD stenosis anatomically. MLA is greater than 5.5. Proximal LAD and left main without significant disease. Final angiogram reveals excellent result. No complications. I directly supervised the administration of moderate sedation with fentanyl and Versed from 12:14 to 12:55 p.m. The patient is clinically stable and chest pain free. CONCLUSIONS: 1. Severe single vessel coronary artery disease with a culprit ulcerated 99% mid LAD stenosis in the milieu of dyspnea and abnormal stress test, which correlates with this lesion, already on antianginals. 2. A 40-50% mid LAD stenosis. Nonobstructive disease in the circumflex, small nondominant right. 3. Normal left ventricular function, estimated ejection fraction of 50-55% without evidence of aortic stenosis. 4. Normal LVEDP. 5. Successful IVUS guided PCI with placement of drug-eluting stent ([place] 2.75 x 12) with excellent final angiographic and ultrasonographic result. The patient is now clinically stable, chest pain free, groin is stable. Post-sheath, once ACT less than 170, aspirin, Plavix, statin therapy. Results of procedure were explained in length with the patient and family. All questions and concerns were addressed. The patient's automation analyst will be consulted and will follow up with Dr. Evy Trujillo in the office. JOB# [id number] SBM/NTS
[2018-10-20] MEDS ORDERED: D50W (25GM) Syringe IV PRN (15:16)
[2018-10-20] MEDS ORDERED: AMBIEN PO PRN (15:18)
[2018-10-20] MEDS ORDERED: NORCO 5/325 PO ONE (15:27)
--- NOTE | 2018-10-20 16:28 | Consultation ---
History of Present Illness - Reason for Consult Consult date: 10/20/18 end stage renal disease - History of Present Illness This is a 53 year old male who was admitted to this hospital under Cardiology to undergo Left Heart Cath procedure for abnormal stress test. 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 Patient has history of ESRD and was last hemodialyzed yesterday. Patient receives hemodialysis at [facility] every M,W,F. Patient has history of Hypotension, ESRD, IBS, Anxiety and Chronic Back Pain. We are being consulted for management of this patient's ESRD. Past History Past Medical History: CAD, diabetes, dialysis, ESRD Past Surgical History: Other (back surgery, Left AVG placement) Social history: no significant social history Family history: no significant family history Medications and Allergies Allergies Allergy/AdvReac Type Severity Reaction Status Date / Time No Known Allergies Allergy Verified 09/06/18 10:32 Home Medications Medication Instructions Recorded Confirmed Last Taken Type Phenergan TAB 25 tab PO PRN 07/21/18 10/20/18 10/19/18 History 1 tab Varenicline Tartrate [Chantix] 1 mg PO DAILY 07/21/18 10/20/18 09/10/18 History 1 tab Aspirin 325 mg PO QDAY #30 tablet 07/28/18 10/20/18 10/20/18 Rx 0915 Loperamide [Imodium] 2 mg PO Q2H PRN capsule 07/28/18 10/20/18 10/19/18 Rx 1 tab Methadone [Dolophine] 10 mg PO DAILY #10 tablet 07/28/18 10/20/18 10/19/18 Rx 1 tab Midodrine [Proamatine] 5 mg PO TID #90 tablet 07/28/18 10/20/18 10/19/18 Rx 1 tab Multivitamin Tab [Multiple Vitamin 1 each PO QDAY #30 tablet 07/28/18 10/20/18 10/19/18 Rx TAB (Theragran)] 1 tab Oxycodone HCl [roxiCODONE] 15 mg PO TID #12 tablet 07/28/18 10/20/18 10/19/18 Rx 1 tab Pregabalin [Lyrica] 100 mg PO TID #30 capsule 07/28/18 10/20/18 10/19/18 Rx 1 tab Sevelamer Carbonate [Renvela] 4,000 mg PO TIDWM #30 tablet 07/28/18 10/20/18 10/19/18 Rx 1 tab Zolpidem [Ambien] 10 mg PO QHS PRN #12 tablet 07/28/18 10/20/18 10/19/18 Rx 1 tab tiZANidine 6 mg PO QDAY PRN #12 07/28/18 10/20/18 10/19/18 Rx 1 tab ALPRAZolam [Xanax TAB] 2 mg PO TID PRN 10/20/18 10/20/18 10/19/18 History 1 tab Active Meds: Active Medications Aspirin (Aspirin) 325 mg PO QDAY KWAME Atorvastatin Calcium (Lipitor) 40 mg PO QHS K[facility]AME Clopidogrel Bisulfate (Plavix) 75 mg PO QDAY KWAME Dextrose (D50w (25gm) Syringe) 50 ml IV PRN PRN PRN Reason: Hypoglycemia Sodium Chloride (Nacl 0.9% 500 Ml) 500 mls @ 50 mls/hr IV DIRECT KWAME Stop: 10/20/18 18:59 Last Admin: 10/20/18 12:14 Dose: 50 mls/hr Documented by: Insulin Human Lispro (Humalog) 0 unit SUB-Q ACHS KWAME; Protocol Midodrine (Proamatine) 5 mg PO TID KWAME Zolpidem Tartrate (Ambien) 10 mg PO QHS PRN PRN Reason: Sleep Review of Systems Constitutional: no weight loss, no weight gain, no fever, no chills Ears, nose, mouth and throat: no ear pain, no ear discharge, no tinnitis, no decreased hearing, no nose pain Cardiovascular: no orthopnea, no rapid/irregular heart beat, no edema, no synco pe, no lightheadedness Respiratory: no cough with sputum, no excessive sputum, no hemoptysis, no shortness of breath, no dyspnea on exertion Gastrointestinal: no abdominal pain, no nausea, no vomiting, no diarrhea, no constipation, no change in bowel habits Musculoskeletal: no neck stiffness, no neck pain, no shooting arm pain, no arm numbness/tingling, no low back pain Integumentary: no rash, no pruritis, no redness, no sores, no wounds, no jaundice Neurological: weakness, lack of coordination Psychiatric: no anxiety, no memory loss, no change in sleep habits, no sleep disturbances, no insomnia, no hypersomnia, no change in appetite Endocrine: no cold intolerance, no heat intolerance, no polyphagia, no excessive thirst, no polydipsia, no polyuria, no nocturia Hematologic/Lymphatic: no easy bruising, no easy bleeding, no lymphadenopathy Exam - Vital Signs Vital signs: Vital Signs Resp 12 10/20/18 10:06 - General Appearance General appearance: well-developed, appears stated age, fatigue EENT: ATNC, PERRL, hearing intact, vision intact Neck: Present: neck supple Respiratory: Decreased Breath Sounds Heart: regular, S1S2 Gastrointestinal: Present: normoactive bowel sounds Integumentary: warm and dry Neurologic: alert and oriented x3 Musculoskeletal: Present: other (No edema) Psychiatric: mood/affect appropriate Results - Lab Results 10/20/18 10:12 10/20/18 10:12 Most recent lab results Calcium 9.3 mg/dL (8.4-10.2) 10/20/18 10:12 Assessment and Plan End Stage Renal Disease on Hemodialysis: Hyperkalemia: -Hemodialysis ordered for tomorrow morning for UF and clearance -Hyperkalemia-Low K diet. Kayexalate 15 gram po x 1. -Fluid restriction of 1 liter per day -Renal diet/Low K diet -Obtain daily weights -Monitor I/O's -Assess dialysis needs daily -Possible D/C home after HD tomorrow Abnormal Stress test: -S/P C today-report pending -On Statin, ASA and Plavix -Cardiology onboard Hypotension: -On Midodrine 5 mg po TID
[2018-10-20] MEDS ORDERED: HumaLOG SUB-Q SCH (16:30)
[2018-10-20] MEDS ORDERED: KIONEX PO ONE (17:14)
[2018-10-20 18:05] LABS: Hepatitis B Surface Antigen Non-Reactive (Negative); Hepatitis C Virus Antibody Non-Reactive (NonReactive)
[2018-10-20] MEDS: PROAMATINE PO SCH (20:25)
[2018-10-20] MEDS ORDERED: PERCOCET 5/325 PO PRN (23:52)
[2018-10-21 07:04] LABS: Creatine Kinase MB 5.7 ng/mL (0.0-4.0)
[2018-10-21 07:23] LABS: Hematocrit 34.8 % (35.5-45.6); Hemoglobin 11.3 gm/dl (11.8-15.2); Mean Corpuscular HGB Conc 32 % (32-34); Mean Corpuscular Volume 97 fl (84-94); Platelet Count 137 K/mm3 (140-440)
[2018-10-21 07:30] LABS: Red Cell Distribution Width 20.9 % (13.2-15.2)
[2018-10-21 08:20] LABS: Chol/HDL Ratio 3.1 %
--- NOTE | 2018-10-21 08:29 | XRay Report ---
CHEST 1 VIEW INDICATION: Patient just underwent percutaneous coronary intervention. COMPARISON: 09/06/2018 chest x-ray report FINDINGS: Support devices: None. Heart: Within normal limits. Lungs/Pleura: No acute air space or interstitial disease. Additional findings: Left axillary vascular stent is noted. IMPRESSION: No acute findings. Signer Name: Caden Love Jr, MD Signed: 10/21/2018 8:25 AM Workstation Name: [id number]
[2018-10-21] MEDS ORDERED: PLAVIX PO SCH (10:00)
[2018-10-21] MEDS ORDERED: ASPIRIN PO SCH (10:00)
[2018-10-21] MEDS ORDERED: NACL 0.9 (PRIMING MACHINE ONLY DIALYSIS) MC ONE (11:19)
--- NOTE | 2018-10-21 12:24 | Progress Note ---
Assessment and Plan End Stage Renal Disease on Hemodialysis: Hyperkalemia: -Hemodialysis ordered for today for UF and clearance -Fluid restriction of 1 liter per day -Renal diet/Low K diet -Obtain daily weights -Monitor I/O's -Assess dialysis needs daily Abnormal Stress test: -On Statin, ASA and Plavix -Cardiology onboard Hypotension: -On Midodrine 5 mg po TID Subjective Date of service: 10/21/18 Principal diagnosis: ESRD on HD Interval history: was in dialysis clinic Objective - Vital Signs Vital signs: Vital Signs - 12hr 10/21/18 10/21/18 10/21/18 01:47 03:27 04:02 Temperature 98.6 F Pulse Rate 76 79 Respiratory 18 18 Rate Blood Pressure 140/84 O2 Sat by Pulse 97 98 Oximetry 10/21/18 10/21/18 10/21/18 08:06 09:10 09:35 Temperature 97.8 F 97.8 F Pulse Rate 73 80 80 Respiratory 18 16 Rate Blood Pressure 125/78 123/66 123/66 O2 Sat by Pulse 96 Oximetry 10/21/18 10/21/18 10/21/18 09:45 10:00 10:15 Temperature Pulse Rate 77 76 76 Respiratory Rate Blood Pressure 129/74 119/73 117/67 O2 Sat by Pulse Oximetry 10/21/18 10/21/18 10/21/18 10:30 10:45 11:00 Temperature Pulse Rate 75 76 76 Respiratory Rate Blood Pressure 135/74 128/60 120/56 O2 Sat by Pulse Oximetry 10/21/18 10/21/18 10/21/18 11:15 11:30 11:45 Temperature Pulse Rate 72 77 78 Respiratory Rate Blood Pressure 118/67 132/88 126/65 O2 Sat by Pulse Oximetry 10/21/18 12:00 Temperature Pulse Rate 78 Respiratory Rate Blood Pressure 113/64 O2 Sat by Pulse Oximetry - Lab 10/21/18 05:40 10/21/18 05:40 Most recent lab results Calcium 9.0 mg/dL (8.4-10.2) 10/21/18 05:40 Medications & Allergies - Medications Allergies/Adverse Reactions: Allergies No Known Allergies Allergy (Verified 09/06/18 10:32) Home Medications: Home Medications Medication Instructions Recorded Confirmed Last Taken Type Phenergan TAB 25 tab PO PRN 07/21/18 10/20/18 10/19/18 History 1 tab Varenicline Tartrate [Chantix] 1 mg PO DAILY 07/21/18 10/20/18 09/10/18 History 1 tab Aspirin 325 mg PO QDAY #30 tablet 07/28/18 10/20/18 10/20/18 Rx 0915 Loperamide [Imodium] 2 mg PO Q2H PRN capsule 07/28/18 10/20/18 10/19/18 Rx 1 tab Methadone [Dolophine] 10 mg PO DAILY #10 tablet 07/28/18 10/20/18 10/19/18 Rx 1 tab Midodrine [Proamatine] 5 mg PO TID #90 tablet 07/28/18 10/20/18 10/19/18 Rx 1 tab Multivitamin Tab [Multiple Vitamin 1 each PO QDAY #30 tablet 07/28/18 10/20/18 10/19/18 Rx TAB (Theragran)] 1 tab Oxycodone HCl [roxiCODONE] 15 mg PO TID #12 tablet 07/28/18 10/20/18 10/19/18 Rx 1 tab Pregabalin [Lyrica] 100 mg PO TID #30 capsule 07/28/18 10/20/18 10/19/18 Rx 1 tab Sevelamer Carbonate [Renvela] 4,000 mg PO TIDWM #30 tablet 07/28/18 10/20/18 10/19/18 Rx 1 tab Zolpidem [Ambien] 10 mg PO QHS PRN #12 tablet 07/28/18 10/20/18 10/19/18 Rx 1 tab tiZANidine 6 mg PO QDAY PRN #12 07/28/18 10/20/18 10/19/18 Rx 1 tab ALPRAZolam [Xanax TAB] 2 mg PO TID PRN 10/20/18 10/20/18 10/19/18 History 1 tab Active Medications: Generic Name Dose Route Start Last Admin Trade Name Freq PRN Reason Stop Dose Admin Aspirin 325 mg 10/21/18 10:00 Aspirin PO QDAY KWAME Atorvastatin Calcium 40 mg 10/20/18 22:00 10/20/18 22:58 Lipitor PO 40 mg QHS [facility] Administration Clopidogrel Bisulfate 75 mg 10/21/18 10:00 Plavix PO QDAY [facility] Dextrose 50 ml 10/20/18 15:16 D50w (25gm) Syringe IV PRN PRN Hypoglycemia Insulin Human Lispro 0 unit 10/20/18 16:30 Humalog SUB-Q ACHS [facility] Protocol Midodrine 5 mg 10/20/18 20:00 10/20/18 20:25 Proamatine PO 5 mg TID KWAME Administration Oxycodone/Acetaminophen 1 tab 10/20/18 23:52 10/21/18 00:09 Percocet 5/325 PO 1 tab Q6H PRN Administration Pain, Moderate (4-6) Zolpidem Tartrate 10 mg 10/20/18 15:18 10/20/18 22:58 Ambien PO 10 mg QHS PRN Administration Sleep
--- NOTE | 2018-10-21 13:53 | Short Stay Summary ---
Short Stay Documentation Date of service: 10/21/18 - History H&P: obtained from office Past Medical History: CAD, diabetes, dialysis, ESRD Past Surgical History: Other (back surgery, Left AVG placement) - Allergies and Medications Current Medications: Allergies No Known Allergies Allergy (Verified 09/06/18 10:32) Home Medications Medication Instructions Recorded Confirmed Last Taken Type Phenergan TAB 25 tab PO PRN 07/21/18 10/20/18 10/19/18 History 1 tab Varenicline Tartrate [Chantix] 1 mg PO DAILY 07/21/18 10/20/18 09/10/18 History 1 tab Aspirin 325 mg PO QDAY #30 tablet 07/28/18 10/20/18 10/20/18 Rx 0915 Loperamide [Imodium] 2 mg PO Q2H PRN capsule 07/28/18 10/20/18 10/19/18 Rx 1 tab Methadone [Dolophine] 10 mg PO DAILY #10 tablet 07/28/18 10/20/18 10/19/18 Rx 1 tab Midodrine [Proamatine] 5 mg PO TID #90 tablet 07/28/18 10/20/18 10/19/18 Rx 1 tab Multivitamin Tab [Multiple Vitamin 1 each PO QDAY #30 tablet 07/28/18 10/20/18 10/19/18 Rx TAB (Theragran)] 1 tab Oxycodone HCl [roxiCODONE] 15 mg PO TID #12 tablet 07/28/18 10/20/18 10/19/18 Rx 1 tab Pregabalin [Lyrica] 100 mg PO TID #30 capsule 07/28/18 10/20/18 10/19/18 Rx 1 tab Sevelamer Carbonate [Renvela] 4,000 mg PO TIDWM #30 tablet 07/28/18 10/20/18 10/19/18 Rx 1 tab Zolpidem [Ambien] 10 mg PO QHS PRN #12 tablet 07/28/18 10/20/18 10/19/18 Rx 1 tab tiZANidine 6 mg PO QDAY PRN #12 07/28/18 10/20/18 10/19/18 Rx 1 tab ALPRAZolam [Xanax TAB] 2 mg PO TID PRN 10/20/18 10/20/18 10/19/18 History 1 tab Active Medications Aspirin (Aspirin) 325 mg PO QDAY [facility] Atorvastatin Calcium (Lipitor) 40 mg PO QHS [facility] Last Admin: 10/20/18 22:58 Dose: 40 mg Documented by: Carvedilol (Coreg) 3.125 mg PO BID [facility] Clopidogrel Bisulfate (Plavix) 75 mg PO QDAY [facility] Dextrose (D50w (25gm) Syringe) 50 ml IV PRN PRN PRN Reason: Hypoglycemia Insulin Human Lispro (Humalog) 0 unit SUB-Q ACHS KWAME; Protocol Last Admin: 10/21/18 12:33 Dose: Not Given Documented by: Midodrine (Proamatine) 5 mg PO TID KWAME Last Admin: 10/20/18 20:25 Dose: 5 mg Documented by: Oxycodone/Acetaminophen (Percocet 5/325) 1 tab PO Q6H PRN PRN Reason: Pain, Moderate (4-6) Last Admin: 10/21/18 00:09 Dose: 1 tab Documented by: Zolpidem Tartrate (Ambien) 10 mg PO QHS PRN PRN Reason: Sleep Last Admin: 10/20/18 22:58 Dose: 10 mg Documented by: - Brief post op/procedure progress note Date of procedure: 10/20/18 Pre-op diagnosis: abnormal stress test Post-op diagnosis: other (CAD) Procedure: LHC with PCI - see dictated cath report Anesthesia: local Estimated blood loss: none Condition: stable - Hospital course Hospital course: Pt was noted to have abnormal stress test in our office and presented for LHC for definitive diagnosis. He subsequently underwent LHC with PCI - see dictated cath report. He was admitted for observation overnight. He remained clinically and hemodynamically stable throughout the admission and is medically stable for discharge home. - Disposition Condition at discharge: Good Disposition: [id number] TO HOME OR SELFCARE - Discharge Diagnoses (1) CAD (coronary artery disease) Status: Chronic (2) Stented coronary artery Status: Chronic (3) End stage renal disease on dialysis Status: Chronic (4) Hypertension Status: Chronic (5) Diabetes mellitus Status: Chronic Qualifiers: Diabetes mellitus type: type 2 Diabetes mellitus complication status: with unspecified complications Short Stay Discharge Plan Activity: advance as tolerated Diet: low fat, low cholesterol, low salt, diabetic, renal Wound: open to air, keep clean and dry, per your surgeon's advice Follow up with: MINNIE GROSSMAN MD [Primary Care Provider] - 7 Days EV AUSTIN MD [Staff Physician] - 7 Days ([facility], 11/10/2018 @ 3:15PM ) Prescriptions: AtorvaSTATin [Lipitor] 40 mg PO QHS #30 tablet Clopidogrel [Plavix] 75 mg PO QDAY #30 tablet
[2018-10-21 14:15] VITALS: BP 123/66
[2018-10-21] MEDS: PROAMATINE PO SCH (14:43)
[2018-10-21] MEDS ORDERED: COREG PO SCH (22:00)
== END 2018-10-21 15:30 | disposition home or self-care (01) ==
LOC: CATHLABREC 08:25 → 4A 15:07
PROVIDERS: ADMIT Internal Medicine; ATTEND Internal Medicine
DX: I25.10 Atherosclerotic heart disease of native coronary artery without angina pectoris (principal); I12.0 Hypertensive chronic kidney disease with stage 5 chronic kidney disease or end stage renal disease; E11.22 Type 2 diabetes mellitus with diabetic chronic kidney disease; N18.6 End stage renal disease; I95.9 Hypotension, unspecified; K58.9 Irritable bowel syndrome, unspecified; F41.9 Anxiety disorder, unspecified; M54.9 Dorsalgia, unspecified; G89.29 Other chronic pain; E87.5 Hyperkalemia; R94.39 Abnormal result of other cardiovascular function study; M86.9 Osteomyelitis, unspecified; F17.210 Nicotine dependence, cigarettes, uncomplicated; Z79.899 Other long term (current) drug therapy; Z99.2 Dependence on renal dialysis; Z95.5 Presence of coronary angioplasty implant and graft
CPT/HCPCS: 36415; 71045; 80048; 80061; 80074; 82550; 82553; 82962; 84484; 85025; 85347; 85610; 85730; 92978; 93005; 93010; 93458; A9270; C1753; C1769; C1874; C1887; C1894; C9600; G0257; G0378; J1644; J2250; J3010; J7030; J7040; 92928; Q9967

== ENCOUNTER 2018-10-25 09:01 | Outpatient (CLI) | payer MEDICARE | END 2018-10-25 09:02 | disposition home or self-care (01) | LOC: WOUND 09:01 | PROVIDERS: ATTEND Surgery | DX: E11.621 Type 2 diabetes mellitus with foot ulcer (principal); L97.521 Non-pressure chronic ulcer of other part of left foot limited to breakdown of skin; E11.69 Type 2 diabetes mellitus with other specified complication; M86.672 Other chronic osteomyelitis, left ankle and foot; E11.22 Type 2 diabetes mellitus with diabetic chronic kidney disease; I12.0 Hypertensive chronic kidney disease with stage 5 chronic kidney disease or end stage renal disease; N18.6 End stage renal disease; F32.9 Major depressive disorder, single episode, unspecified; Z99.2 Dependence on renal dialysis ==

== ENCOUNTER 2018-11-03 10:08 | Day surgery (SDC) | payer MEDICARE ==
[2018-11-03] MEDS ORDERED: NACL 0.9% 1000 ML 1,000 ML IV SCH (10:32)
[2018-11-03] MEDS ORDERED: NACL BACTERIOSTATIC INFILTRATI ONE (10:39)
--- NOTE | 2018-11-03 11:05 | Anesthesia Consultation ---
Anesthesia Consult and Med Hx Date of service: 11/03/18 - Airway Anesthetic Teeth Evaluation: Dentures ROM Head & Neck: Adequate Mental/Hyoid Distance: Adequate Mallampati Class: Class II Intubation Access Assessment: Good - Pulmonary Exam CTA: Yes - Cardiac Exam Cardiac Exam: RRR - Pre-Operative Health Status ASA Pre-Surgery Classification: ASA3 Proposed Anesthetic Plan: General, MAC (Hx of CAD, had stent placement 2 weeks ago . ) - Pulmonary Hx Smoking: Yes Hx Sleep Apnea: No (REENA PRE SCREEN HIGH RISK) - Cardiovascular System Hx Hypertension: Yes Hx Coronary Artery Disease: Yes Hx Cardia Arrhythmia: No Hx Peripheral Vascular Disease: Yes - Central Nervous System Hx Neuromuscular Disorder: No Hx Seizures: No CVA: No Hx Back Pain: Yes (MRSA infection . CHRONIC PAIN) - Gastrointestinal Hx Ulcer: No Hx Gastroesophageal Reflux Disease: No - Endocrine Hx Renal Disease: Yes Hx End Stage Renal Disease: Yes (14yrs) Hx Insulin Dependent Diabetes: No (B) Hx Non-Insulin Dependent Diabetes: (Hx of DM, no longer on metformin at doctor request) Hx Thyroid Disease: No - Hematic Hx Anemia: Yes - Other Systems Hx Cancer: No
--- NOTE | 2018-11-03 11:05 | Anesthesia Day of Surgery ---
Anesthesia Day of Surgery - Day of Surgery Patient Examined: Yes Patient H&P Reviewed: Yes Patient is NPO: Yes
[2018-11-03] MEDS ORDERED: ZOFRAN IV PRN (11:30)
[2018-11-03] MEDS ORDERED: DILAUDID IV PRN (11:30)
[2018-11-03 11:39] LABS: Basophils % (Auto) 0.7 % (0.0-1.8); Eosinophils # (Auto) 0.1 K/mm3 (0.0-0.4); Eosinophils % (Auto) 1.4 % (0.0-4.3); Hematocrit 36.5 % (35.5-45.6); Hemoglobin 12.2 gm/dl (11.8-15.2); Lymphocytes # (Auto) 0.7 K/mm3 (1.2-5.4); Lymphocytes % (Auto) 14.4 % (13.4-35.0); Mean Corpuscular HGB Conc 33 % (32-34); Mean Corpuscular Volume 94 fl (84-94); Monocytes # (Auto) 0.4 K/mm3 (0.0-0.8); Monocytes % (Auto) 8.6 % (0.0-7.3); Platelet Count 113 K/mm3 (140-440); Red Cell Distribution Width 18.4 % (13.2-15.2)
[2018-11-03] MEDS ORDERED: XYLOCAINE 1% 20 mL ONE (11:50)
[2018-11-03] MEDS ORDERED: ANCEF/STERILE WATER 2 GM/20 ML IV NR (12:06)
[2018-11-03] MEDS ORDERED: VERSED IV ONE (12:09)
[2018-11-03 12:11] LABS: Calcium 9.4 mg/dL (8.4-10.2)
[2018-11-03] MEDS ORDERED: SUBLIMAZE ONE (12:31)
[2018-11-03] MEDS ORDERED: XYLOCAINE MPF 2% ONE (12:31)
[2018-11-03] MEDS ORDERED: VERSED ONE (12:31)
[2018-11-03] MEDS ORDERED: DIPRIVAN 10 MG/ML IV ONE ×2 (12:32)
[2018-11-03] MEDS ORDERED: XYLOCAINE 1% 20 mL INFILTRATI ONE ×2 (13:02)
[2018-11-03] MEDS ORDERED: MARCAINE-EPI/PF 0.5%-1:200,000 INFILTRATI ONE ×3 (13:02→13:04)
[2018-11-03 14:27] VITALS: BP 97/61
--- NOTE | 2018-11-03 16:10 | Post Anesthesia Evaluation ---
- Post Anesthesia Evaluation Patient Participated: Yes Airway Patent: Yes Stable Respiratory Function: Yes Nausea/Vomiting: No Temp > 96.8F: Yes Pain Manageable: Yes Adequeate Hydration: Yes Anesthesia Complications: No
--- NOTE | 2018-11-08 10:04 | Procedure Note ---
Date of procedure: 11/03/18 Pre-op diagnosis: Osteomyelitis, left 5th toe Post-op diagnosis: same Procedure: Transmetatarsal amputation, left 5th toe Description of procedure: Pt was placed supine on the OR table. GETA was administered. Left foot was prepped and draped. A tear drop incision was made about the left 5th toe. Soft tissue was transected with the Bovie. The toe was disarticulated at the MTP joint. The adjacent metatarsal head was then amputated with a bone saw. Tendons were maximally retracted and amputated. Bleeding was minimal and was controlled with the Bovie. The wound was closed with several vertical mattress sutures of 3-0 Nylon. Sterile 4 X 4's were applied over the wound followed by Kerlix and Coban wraps. Pt tolerated the procedure well. He was taken to PACU in stable condition. Anesthesia: GETA Surgeon: YURIDIA STEWART Estimated blood loss: minimal Pathology: list (left 5th toe and metatarsal head) Specimen disposition: to lab Condition: stable Disposition: PACU
== END 2018-11-03 10:09 | disposition home or self-care (01) ==
LOC: OR 10:08
PROVIDERS: ATTEND Surgery
DX: E11.69 Type 2 diabetes mellitus with other specified complication (principal); M86.8X7 Other osteomyelitis, ankle and foot; I12.0 Hypertensive chronic kidney disease with stage 5 chronic kidney disease or end stage renal disease; E11.22 Type 2 diabetes mellitus with diabetic chronic kidney disease; N18.6 End stage renal disease; D64.9 Anemia, unspecified; F32.9 Major depressive disorder, single episode, unspecified; I25.10 Atherosclerotic heart disease of native coronary artery without angina pectoris; E11.51 Type 2 diabetes mellitus with diabetic peripheral angiopathy without gangrene; E78.00 Pure hypercholesterolemia, unspecified; K21.9 Gastro-esophageal reflux disease without esophagitis; M19.90 Unspecified osteoarthritis, unspecified site; F41.9 Anxiety disorder, unspecified; Z98.890 Other specified postprocedural states; Z79.899 Other long term (current) drug therapy; Z79.82 Long term (current) use of aspirin; Z88.6 Allergy status to analgesic agent; Z88.8 Allergy status to other drugs, medicaments and biological substances; Z98.42 Cataract extraction status, left eye; Z99.2 Dependence on renal dialysis; Z83.3 Family history of diabetes mellitus; Z82.61 Family history of arthritis; Z87.39 Personal history of other diseases of the musculoskeletal system and connective tissue; Z82.49 Family history of ischemic heart disease and other diseases of the circulatory system
CPT/HCPCS: 28810; 36415; 80048; 82962; 85025; 88302; 88304; 88311; J0690; J2250; J2704; J3010; J7030

== ENCOUNTER 2018-11-08 14:05 | Inpatient (IN) | payer MEDICARE ==
[2018-11-08] MEDS ORDERED: NACL 0.9% 500 ML 500 ML IV ONE (14:12)
--- NOTE | 2018-11-08 14:17 | Event Note ---
ED Screening Note Date of service: 11/08/18 Time: 14:16 ED Screening Note: 53 y o male presents with foot pain from amputation x 5 days ago f/ This initial assessment/diagnostic orders/clinical plan/treatment(s) is/are subject to change based on patients health status, clinical progression and re- assessment by fellow clinical providers in the ED. Further treatment and workup at subsequent clinical providers discretion. Patient/guardian urged not to elope from the ED as their condition may be serious if not clinically assessed and managed. Initial orders include: sepsis protocol ordered
[2018-11-08] MEDS ORDERED: VANCOMYCIN 1,750 MG in NACL 0.9% 500 ML 500 ML IV ONE (14:37)
[2018-11-08] MEDS ORDERED: NACL 0.9% 1000 ML IV ONE (14:37)
--- NOTE | 2018-11-08 14:55 | Emergency Department Report ---
ED Fever HPI - General Chief Complaint: Weakness Stated Complaint: GENERLIZE Time Seen by Provider: 11/08/18 14:15 Source: patient, snf records, old records Exam Limitations: no limitations - History of Present Illness Initial Comments: Mr. Bello is a 53-year-old male with a history of end-stage renal disease, CAD, DM, HTN, sepsis, PVD, osteomyelitis left foot who presents with severe left foot pain 5 days s/p left 5th toe amputation by Dr. Mcdonnell. He has diffuse pain throughout his foot radiating from the toe to the heel. He has generalized malaise. Low-grade fever noted in triage. PCP. Dr. Yg Little Manager [employer] Dr. Gina Obrien Timing/Duration: getting worse, changing over time Fever Severity/Quality: subjective Associated Symptoms: other (severe foot pain) ED Review of Systems ROS: Stated complaint: GENERLIZE Other details as noted in HPI Comment: All other systems reviewed and negative Constitutional: malaise. denies: fever Respiratory: denies: cough Skin: rash, lesions, change in color ED Past Medical Hx - Past Medical History Previous Medical History?: Yes Hx Hypertension: No Hx CVA: No Hx Congestive Heart Failure: No Hx Diabetes: Yes Hx Deep Vein Thrombosis: No Hx Pulmonary Embolism: No Hx GERD: Yes Hx Renal Disease: Yes Hx Arthritis: Yes Hx Headaches / Migraines: No Hx Seizures: No Hx Kidney Stones: No Hx Tuberculosis: No Hx HIV: No Additional medical history: Dialysis shunt right upper arm. Osteomyelitis. - Surgical History Hx Coronary Stent: No Hx Open Heart Surgery: No Hx Cholecystectomy: No Hx Appendectomy: No Hx Breast Surgery: No Additional Surgical History: "back surgery" - Social History Smoking Status: Light Tobacco Smoker Substance Use Type: None - Medications Home Medications: Home Medications Medication Instructions Recorded Confirmed Last Taken Type Phenergan TAB 25 tab PO PRN 07/21/18 10/31/18 10/19/18 History 1 tab Varenicline Tartrate [Chantix] 1 mg PO DAILY 07/21/18 10/31/18 11/02/18 History Aspirin 325 mg PO QDAY #30 tablet 07/28/18 10/31/18 11/02/18 Rx Loperamide [Imodium] 2 mg PO Q2H PRN capsule 07/28/18 10/31/18 11/02/18 Rx Methadone [Dolophine] 10 mg PO DAILY #10 tablet 07/28/18 10/31/18 11/02/18 Rx Midodrine [Proamatine] 5 mg PO TID #90 tablet 07/28/18 10/31/18 11/02/18 Rx Multivitamin Tab [Multiple Vitamin 1 each PO QDAY #30 tablet 07/28/18 10/31/18 11/02/18 Rx TAB (Theragran)] Pregabalin [Lyrica] 100 mg PO TID #30 capsule 07/28/18 10/31/18 11/02/18 Rx Sevelamer Carbonate [Renvela] 4,000 mg PO TIDWM #30 tablet 07/28/18 10/31/18 11/02/18 Rx Zolpidem [Ambien] 10 mg PO QHS PRN #12 tablet 07/28/18 10/31/18 11/02/18 Rx tiZANidine 6 mg PO QDAY PRN #12 07/28/18 10/31/18 10/19/18 Rx 1 tab ALPRAZolam [Xanax TAB] 2 mg PO TID PRN 10/20/18 10/31/18 11/02/18 History AtorvaSTATin [Lipitor] 40 mg PO QHS #30 tablet 10/21/18 10/31/18 11/02/18 Rx Carvedilol [Coreg] 3.125 mg PO BID tablet 10/21/18 10/31/18 11/02/18 Rx Clopidogrel [Plavix] 75 mg PO QDAY #30 tablet 10/21/18 10/31/18 11/02/18 Rx traZODone [Desyrel] 50 mg PO BID 10/31/18 10/31/18 11/02/18 History oxyCODONE /ACETAMINOPHEN [Percocet 1 tab PO Q4HR PRN #40 tab 11/03/18 Unknown Rx 5/325] ED Physical Exam - General Limitations: No Limitations General appearance: alert, in no apparent distress - Head Head exam: Present: atraumatic, normocephalic - Eye Eye exam: Present: normal appearance - ENT ENT exam: Present: mucous membranes moist - Neck Neck exam: Present: normal inspection - Respiratory Respiratory exam: Present: normal lung sounds bilaterally. Absent: respiratory distress, wheezes, rales, rhonchi - Cardiovascular Cardiovascular Exam: Present: regular rate, normal rhythm, normal heart sounds. Absent: systolic murmur, diastolic murmur, rubs, gallop - GI/Abdominal GI/Abdominal exam: Present: soft, normal bowel sounds. Absent: distended, tenderness, guarding, rebound - Rectal Rectal exam: Present: deferred - Extremities Exam Extremities exam: Present: normal inspection - Neurological Exam Neurological exam: Present: alert, oriented X3 - Psychiatric Psychiatric exam: Present: normal affect, normal mood - Skin Skin exam: Present: other (malodorous, large area of fluctuance with underlying dark fluid, erythema and edema involving most of the left foot, purple cyanotic fourth toe) ED Course Vital Signs 11/08/18 14:16 Temperature 100.4 F H Pulse Rate 91 H Respiratory 18 Rate Blood Pressure 81/48 O2 Sat by Pulse 94 Oximetry ED Medical Decision Making - Lab Data Result diagrams: 11/08/18 14:33 11/08/18 14:33 - Medical Decision Making 1. post-operative infection with fluctuance and extensive cellulitis. Dr. Mcdonnell will take patient to OR tomorrow for debridement and exploration 2. ESRD, missed HD on Wednesday due to generalized malaise, Last HD Wednesday, Potassium 5.6, no respiratory distress, Manager Medicaid Dr. Obrien consulted. He has provided dialysis orders 3. Code sepsis initiated: broad spectrum antibiotics initiated upon arrival to room, no persistent hypotension, IVF bolus not indicated at the present time, no evidence of lactic acidosis. I discussed case with hospitalist Dr. Olmstead. I have provided bridging orders to [facility]. Critical Care Time: Yes Critical care time in (mins) excluding proc time.: 40 Critical care attestation.: If time is entered above; I have spent that time in minutes in the direct care of this critically ill patient, excluding procedure time. 40 minutes of critical care time excluding procedures were used in the care of the patient. Patient required multiple assessments and interventions. I reviewed the electronic medical record. I spoke with consultants involved in the care of the patient. ED Disposition Clinical Impression: Postoperative infection, Infection of toe as complication of amputation, Osteomyelitis, ESRD (end stage renal disease) Disposition: OP ADMIT IP TO THIS HOSP Is pt being admited?: Yes Does the pt Need Aspirin: No Condition: Stable
[2018-11-08 14:56] LABS: INR 1.28 (0.87-1.13)
[2018-11-08 14:58] LABS: Basophils # (Auto) 0.1 K/mm3 (0.0-0.1); Basophils % (Auto) 1.1 % (0.0-1.8); Eosinophils # (Auto) 0.1 K/mm3 (0.0-0.4); Hemoglobin 11.7 gm/dl (11.8-15.2); Lymphocytes # (Auto) 0.8 K/mm3 (1.2-5.4); Lymphocytes % (Auto) 11.6 % (13.4-35.0); Mean Corpuscular HGB Conc 34 % (32-34); Mean Corpuscular Volume 92 fl (84-94); Monocytes # (Auto) 0.7 K/mm3 (0.0-0.8); Monocytes % (Auto) 10.2 % (0.0-7.3); Platelet Count 107 K/mm3 (140-440); Red Cell Distribution Width 17.6 % (13.2-15.2)
[2018-11-08] MEDS ORDERED: ZOSYN/NS 4.5GM/100ML 4.5 GM/100 ML VIAL IV SCH (15:00)
[2018-11-08] MEDS ORDERED: VANCOMYCIN PHARMACY TO DOSE IV SCH (15:00)
[2018-11-08 15:02] LABS: Albumin 4.1 g/dL (3.9-5); BUN/Creatinine Ratio 5; Blood Urea Nitrogen 76 mg/dL (9-20); Calcium 9.7 mg/dL (8.4-10.2); Hemolysis Index 1
[2018-11-08 15:05] LABS: Alanine Aminotransferase < 5 units/L (7-56)
--- NOTE | 2018-11-08 15:25 | XRay Report ---
CHEST 1 VIEW INDICATION / CLINICAL INFORMATION: possible Sepsis. COMPARISON: 10/21/2018 FINDINGS: SUPPORT DEVICES: None. HEART / MEDIASTINUM: No significant abnormality. LUNGS / PLEURA: No significant pulmonary or pleural abnormality. No pneumothorax. ADDITIONAL FINDINGS: Vascular graft is noted in the left axillary region IMPRESSION: 1. No acute findings. Signer Name: Man Khan MD Signed: 11/08/2018 3:20 PM Workstation Name: [id number]
--- NOTE | 2018-11-08 15:27 | XRay Report ---
LEFT FOOT, 3 VIEWS INDICATION: Foot infection, swelling. COMPARISON: None. IMPRESSION: There has been previous amputation of the distal fifth metatarsal and fifth toe. The rem aining bony structures are intact. Mild osteoarthritic changes are noted throughout the mid foot and toes. There is soft tissue gas in the distal lateral left foot suggesting cellulitis. No convincing b zahra destruction or periostitis is identified to suggest osteomyelitis on x-ray. If further evaluatio n is needed MRI preferably with contrast or triple phase bone scan could be obtained. Signer Name: Caden Love Jr, MD Signed: 11/08/2018 3:23 PM Workstation Name: [id number]
[2018-11-08] MEDS ORDERED: VANCOMYCIN 1,500 MG in NACL 0.9% 500 ML 500 ML IV ONE (15:45)
--- NOTE | 2018-11-08 16:32 | Consultation ---
History of Present Illness - Reason for Consult Consult date: 11/08/18 end stage renal disease - History of Present Illness This is a 53 year old who presented to the hospital with a chief complaint of left foot pain. Patient is status post amputation of Transmetatarsal amputation, left 5th toe on 11/03/18. In E.R patient noted to have low grade fever of 100.4. Patient has history of DM, PVD and ESRD and is on hemodialysis every M,W,F at [facility]. We are being consulted for management of this patient's ESRD. Past History Past Medical History: diabetes, dialysis, ESRD, other (Hypotension) Past Surgical History: Other (Transmetatarsal amputation, left 5th toe, Left AVG placement, Spine surgery ) Social history: no significant social history Family history: no significant family history Medications and Allergies Allergies Allergy/AdvReac Type Severity Reaction Status Date / Time No Known Allergies Allergy Verified 09/06/18 10:32 Home Medications Medication Instructions Recorded Confirmed Last Taken Type Phenergan TAB 25 tab PO PRN 07/21/18 11/08/18 11/07/18 History Varenicline Tartrate [Chantix] 1 mg PO DAILY 07/21/18 11/08/18 11/02/18 History Aspirin 325 mg PO QDAY #30 tablet 07/28/18 11/08/18 11/07/18 Rx Loperamide [Imodium] 2 mg PO Q2H PRN capsule 07/28/18 11/08/18 11/07/18 Rx Methadone [Dolophine] 10 mg PO DAILY #10 tablet 07/28/18 11/08/18 11/07/18 Rx Midodrine [Proamatine] 5 mg PO TID #90 tablet 07/28/18 11/08/18 11/07/18 Rx Multivitamin Tab [Multiple Vitamin 1 each PO QDAY #30 tablet 07/28/18 11/08/18 11/07/18 Rx TAB (Theragran)] Pregabalin [Lyrica] 100 mg PO TID #30 capsule 07/28/18 11/08/18 11/07/18 Rx Sevelamer Carbonate [Renvela] 4,000 mg PO TIDWM #30 tablet 07/28/18 11/08/18 11/07/18 Rx Zolpidem [Ambien] 10 mg PO QHS PRN #12 tablet 07/28/18 11/08/18 11/07/18 Rx ALPRAZolam [Xanax TAB] 2 mg PO TID PRN 10/20/18 11/08/18 11/07/18 History AtorvaSTATin [Lipitor] 40 mg PO QHS #30 tablet 10/21/18 11/08/18 11/07/18 Rx Carvedilol [Coreg] 3.125 mg PO BID tablet 10/21/18 11/08/18 11/07/18 Rx Clopidogrel [Plavix] 75 mg PO QDAY #30 tablet 10/21/18 11/08/18 11/07/18 Rx traZODone [Desyrel] 50 mg PO BID 10/31/18 11/08/18 11/07/18 History oxyCODONE /ACETAMINOPHEN [Percocet 1 tab PO Q4HR PRN #40 tab 11/03/18 11/08/18 11/07/18 Rx 5/325] Active Meds: Active Medications Piperacillin Sod/Tazobactam Sod (Zosyn/Ns 4.5gm/100ml) 4.5 gm in 100 mls @ 200 mls/hr IV Q8HR KWAME; Protocol Last Admin: 11/08/18 15:15 Dose: 200 mls/hr Documented by: Vancomycin HCl 1,500 mg/ (Sodium Chloride) 530 mls @ 265 mls/hr IV ONCE ONE; Protocol Stop: 11/08/18 17:44 Last Admin: 11/08/18 16:04 Dose: 265 mls/hr Documented by: Review of Systems Constitutional: fever, fatigue, weakness, chronic pain, no weight loss, no weight gain, no malaise, no lethargy Ears, nose, mouth and throat: no ear pain, no ear discharge, no tinnitis, no decreased hearing, no nose pain, no nasal congestion, no nasal discharge, no sinus pressure, no epistaxis, no bleeding gums, no dental pain, no mouth pain, no dysphagia, no hoarseness Cardiovascular: edema, no chest pain, no orthopnea, no palpitations, no rapid/irregular heart beat, no syncope, no lightheadedness, no shortness of breath Respiratory: no cough, no cough with sputum, no shortness of breath, no dyspnea on exertion Gastrointestinal: no abdominal pain, no nausea, no vomiting, no diarrhea, no constipation, no change in bowel habits Genitourinary Male: no dysuria, no hematuria, no flank pain, no discharge Musculoskeletal: no neck stiffness, no neck pain, no shooting arm pain, no arm numbness/tingling, no low back pain, no shooting leg pain Integumentary: no rash, no pruritis, no redness, no sores, no wounds, no jaundice Neurological: weakness, parathesias, lack of coordination, no head injury, no paralysis, no syncope, no tremors Psychiatric: anxiety, no change in sleep habits, no sleep disturbances, no insomnia, no suicidal ideation, no disorientation Endocrine: no cold intolerance, no heat intolerance, no polyphagia, no excessive thirst, no polydipsia, no polyuria Hematologic/Lymphatic: no easy bruising, no lymphadenopathy Exam - Vital Signs Vital signs: Vital Signs Temp Pulse Resp BP Pulse Ox 100.4 F H 91 H 18 81/48 94 11/08/18 14:16 11/08/18 14:16 11/08/18 14:16 11/08/18 14:16 11/08/18 14:16 - General Appearance General appearance: well-developed, appears stated age, fatigue EENT: ATNC, PERRL, hearing intact, vision intact Neck: Present: neck supple, trachea midline Respiratory: Decreased Breath Sounds Heart: regular, S1S2 Gastrointestinal: Present: normoactive bowel sounds Integumentary: warm and dry Neurologic: alert and oriented x3 Musculoskeletal: Present: joint swelling, other (Transmetatarsal amputation, left 5th toe ) Results - Lab Results 11/08/18 14:33 11/08/18 14:33 Most recent lab results Calcium 9.7 mg/dL (8.4-10.2) 11/08/18 14:33 Assessment and Plan ESRD on hemodialysis: -Hemodialysis today for UF and clearance. -CXR- no acute findings -Fluid restriction of 32 ounces per day -Renal diet -Obtain daily weights -Monitor I/O's -Assess dialysis needs daily S/P Transmetatarsal amputation, left 5th toe -Surgery done on 11/03/18 -Currently with left foot pain and fever -Foot x-ray shows possible cellulitis, no osteomyelitis -On IV Zosyn -Surgeon consulted Chronic Hypotension: -On Midodrine -Monitor BP
[2018-11-08] MEDS ORDERED: NACL 0.9% 100 ML IV PRN (18:14)
[2018-11-08] MEDS ORDERED: IMODIUM PO PRN (22:06)
[2018-11-08] MEDS ORDERED: SODIUM CHLORIDE FLUSH SYRINGE 10 ML IV PRN (22:08)
[2018-11-08] MEDS ORDERED: TYLENOL PO PRN (22:08)
[2018-11-08] MEDS ORDERED: ZOFRAN IV PRN (22:08)
[2018-11-08] MEDS ORDERED: PHENERGAN PO PRN (22:15)
[2018-11-09] MEDS ORDERED: UNASYN/NS 1.5 GM/50 ML 1.5 GM/50 ML BAG IV SCH
[2018-11-09] MEDS: AMBIEN PO PRN ×2 (00:55→22:01)
[2018-11-09] MEDS: PERCOCET 5/325 PO PRN ×2 (00:55→08:10)
[2018-11-09] MEDS: ZOSYN/NS 2.25 GM/50ML 2.25 GM/50 ML BAG IV SCH ×3 (00:56→19:11)
[2018-11-09] MEDS: XANAX PO PRN ×2 (00:56→22:01)
[2018-11-09] MEDS: PEPCID PO SCH ×3 (01:03→22:01)
[2018-11-09] MEDS: PROAMATINE PO SCH ×3 (06:29→18:49)
--- NOTE | 2018-11-09 06:58 | Event Note ---
Date: 11/08/18 See H/p in reports ESRD needing HD Foot infection
--- NOTE | 2018-11-09 07:17 | History and Physical Report ---
CHIEF COMPLAINT: 1. Severe left foot pain. 2. Generalized weakness. HISTORY OF PRESENT ILLNESS: A 53-year-old -Greek male with end-stage renal disease, hypertension, diabetes, coronary artery disease, osteomyelitis of the left foot, presents with severe left foot pain for 5 days. The patient had recent fifth toe amputation by Dr. Mcdonnell. He has severe pain in the left foot and also some drainage at the site of amputation. Her radiology specialist is Dr. Obrien. No fever or chills. Low-grade fever present. No shortness of breath. Missed one session of dialysis on Wednesday. Some orthopnea present. PAST MEDICAL HISTORY: Significant for hypotension, on midodrine; end-stage renal disease; peripheral arterial disease; left foot infection, especially the fifth toe. PAST SURGICAL HISTORY: Dialysis shunt in the right upper extremity. Osteomyelitis. Also back surgery in the past. SOCIAL HISTORY: Smoker, half a pack a day. FAMILY HISTORY: Hypertension. CURRENT MEDICATIONS: On the chart including midodrine 5 mg t.i.d. and Renvela 4000 mg p.o. t.i.d., Xanax 2 mg t.i.d. REVIEW OF SYSTEMS: Significant for left foot infection with severe pain for 5 days. Also, low-grade fever. Also, missed dialysis and shortness of breath. PHYSICAL EXAMINATION: GENERAL: Middle-aged male, looks older than his age. VITAL SIGNS: Blood pressure is 88/50, temperature 98.6 and 100.5, pulse is 54, respirations are 18. HEENT: Unremarkable. Pupils equal and reactive. NECK: Supple, no lymphadenopathy, no thyromegaly. LUNGS: Clear to auscultation and percussion. Good air entry. CARDIOVASCULAR: S1, S2 heard. No gallop, no murmur, no rub. Apical impulse in left fifth intercostal space and midclavicular line. ABDOMEN: Soft and benign. No hepatosplenomegaly. No guarding, no rigidity. Hernial orifices are normal. EXTREMITIES: Left foot infected near the fifth toe amputation site. Slight drainage present. CENTRAL NERVOUS SYSTEM: Alert and oriented x 4, nonfocal exam. SKIN: Otherwise normal except the left foot infection. LABORATORY DATA: Significant for white count of 6800, H and H of 11.7 and 35.0, platelet count of 107,000. Sodium is 137, potassium is 5.6, BUN and creatinine 76 and 14.0. Total protein is 9.0. Chest x-ray, no acute findings. Foot x-ray shows previous amputation of the distal fifth metatarsal and fifth toe. The remaining bony structures are intact. Mild osteoarthritic changes. Soft tissue gas in the distal lateral left foot suggesting cellulitis. No convincing bony destruction or periostitis is identified to suggest osteomyelitis on x-ray. No osteomyelitis. ASSESSMENT AND PLAN: 1. Left foot cellulitis. The patient initiated on IV Zosyn and IV vancomycin. Wound care consult requested. Surgical consult requested by Dr. Mcdonnell. 2. End-stage renal disease, requiring hemodialysis. The patient sent for emergent hemodialysis. 3. Hypertension. Continue midodrine. 4. Chronic pain. Continue methadone. 5. Generalized anxiety disorder. Continue Xanax. 6. Coronary artery disease. Continue Plavix. 7. Hyperlipidemia. Continue Lipitor. 8. Deep vein thrombosis prophylaxis, heparin 5000 q.12. and gastrointestinal prophylaxis. JOB# [id number] ENRIQUE/NTS
[2018-11-09] MEDS ORDERED: NON-FORMULARY (Pregabalin [Lyrica] 100 MG) PO SCH (08:00)
[2018-11-09] MEDS: RENVELA PO SCH ×3 (08:09→18:01)
[2018-11-09] MEDS: LYRICA PO SCH ×6 (08:10→22:01)
--- NOTE | 2018-11-09 09:04 | Progress Note ---
Assessment and Plan ESRD on hemodialysis: -Hemodialysis again today for UF and clearance. -Fluid restriction of 32 ounces per day -Renal diet -Obtain daily weights -Monitor I/O's -Assess dialysis needs daily S/P Transmetatarsal amputation, left 5th toe -Surgery done on 11/03/18 -Currently with left foot pain and fever -Foot x-ray shows possible cellulitis, no osteomyelitis -On IV Zosyn -Surgeon consulted Chronic Hypotension: -On Midodrine -Monitor BP Subjective Date of service: 11/09/18 Principal diagnosis: ESRD on HD Interval history: tolerated short dialysis treatment well yesterday Objective - Vital Signs Vital signs: Vital Signs - 12hr 11/08/18 11/08/18 11/09/18 21:29 22:20 06:25 Temperature 100.5 F H 98.8 F Pulse Rate 96 H 82 Respiratory 18 18 18 Rate Blood Pressure 93/55 87/49 O2 Sat by Pulse 99 100 Oximetry - General Appearance General appearance: well-developed, well-nourished EENT: ATNC, PERRL, mucous membranes moist Neck: no JVD, no carotid bruit Respiratory: Present: Clear to Ascultation. Absent: Rales, Ronchi Cardiology: regular, S1S2 Gastrointestinal: normoactive bowel sounds, no tenderness, no distended Integumentary: no rash, warm and dry Neurologic: no focal deficit, no asterixis, alert and oriented x3 Musculoskeletal: deferred Psychiatric: mood/affect appropriate, cooperative - Lab 11/08/18 14:33 11/08/18 14:33 Most recent lab results Calcium 9.7 mg/dL (8.4-10.2) 11/08/18 14:33 Medications & Allergies - Medications Allergies/Adverse Reactions: Allergies No Known Allergies Allergy (Verified 09/06/18 10:32) Home Medications: Home Medications Medication Instructions Recorded Confirmed Last Taken Type Phenergan TAB 25 tab PO PRN 07/21/18 11/08/18 11/07/18 History Varenicline Tartrate [Chantix] 1 mg PO DAILY 07/21/18 11/08/18 11/02/18 History Aspirin 325 mg PO QDAY #30 tablet 07/28/18 11/08/18 11/07/18 Rx Loperamide [Imodium] 2 mg PO Q2H PRN capsule 07/28/18 11/08/18 11/07/18 Rx Methadone [Dolophine] 10 mg PO DAILY #10 tablet 07/28/18 11/08/18 11/07/18 Rx Midodrine [Proamatine] 5 mg PO TID #90 tablet 07/28/18 11/08/18 11/07/18 Rx Multivitamin Tab [Multiple Vitamin 1 each PO QDAY #30 tablet 07/28/18 11/08/18 11/07/18 Rx TAB (Theragran)] Pregabalin [Lyrica] 100 mg PO TID #30 capsule 07/28/18 11/08/18 11/07/18 Rx Sevelamer Carbonate [Renvela] 4,000 mg PO TIDWM #30 tablet 07/28/18 11/08/18 11/07/18 Rx Zolpidem [Ambien] 10 mg PO QHS PRN #12 tablet 07/28/18 11/08/18 11/07/18 Rx ALPRAZolam [Xanax TAB] 2 mg PO TID PRN 10/20/18 11/08/18 11/07/18 History AtorvaSTATin [Lipitor] 40 mg PO QHS #30 tablet 10/21/18 11/08/18 11/07/18 Rx Carvedilol [Coreg] 3.125 mg PO BID tablet 10/21/18 11/08/18 11/07/18 Rx Clopidogrel [Plavix] 75 mg PO QDAY #30 tablet 10/21/18 11/08/18 11/07/18 Rx traZODone [Desyrel] 50 mg PO BID 10/31/18 11/08/18 11/07/18 History oxyCODONE /ACETAMINOPHEN [Percocet 1 tab PO Q4HR PRN #40 tab 11/03/18 11/08/18 11/07/18 Rx 5/325] Active Medications: Generic Name Dose Route Start Last Admin Trade Name Freq PRN Reason Stop Dose Admin Acetaminophen 650 mg 11/08/18 22:08 Tylenol PO Q4H PRN Pain MILD(1-3)/Fever >100.5/WEST Alprazolam 2 mg 11/08/18 22:06 11/09/18 00:56 Xanax PO 2 mg TID PRN Administration Anxiety Aspirin 325 mg 11/09/18 10:00 Aspirin PO QDAY [facility] Atorvastatin Calcium 40 mg 11/09/18 22:00 Lipitor PO QHS [facility] Carvedilol 3.125 mg 11/09/18 10:00 Coreg PO BID [facility] Clopidogrel Bisulfate 75 mg 11/09/18 10:00 Plavix PO QDAY [facility] Famotidine 10 mg 11/08/18 23:00 11/09/18 01:03 Pepcid PO 10 mg BID KWAME Administration Sodium Chloride 100 mls @ 999 mls/hr 11/08/18 18:14 Nacl 0.9% IV DWIGHT PRN Hypotension Piperacillin Sod/Tazobactam Sod 2.25 gm in 50 mls @ 100 mls/hr 11/09/18 00:00 11/09/18 00:56 Zosyn/Ns 2.25 Gm/50ml IV 100 mls/hr Q8H KWAME Administration Protocol Loperamide HCl 2 mg 11/08/18 22:06 Imodium PO Q2H PRN Diarrhea Methadone HCl 10 mg 11/09/18 10:00 Dolophine PO DAILY [facility] Midodrine 5 mg 11/09/18 06:00 11/09/18 06:29 Proamatine PO 5 mg TID@0600,1200,1800 [facility] Administration Miscellaneous Medication 25 tab 11/08/18 22:15 Phenergan Tab PO Q4H PRN Nausea Multivitamins 1 each 11/09/18 10:00 Theragran Tab PO QDAY [facility] Ondansetron HCl 4 mg 11/08/18 22:08 Zofran IV Q8H PRN Nausea And Vomiting Oxycodone/Acetaminophen 1 tab 11/08/18 22:06 11/09/18 08:10 Percocet 5/325 PO 1 tab Q4H PRN Administration Pain, Moderate (4-6) Pregabalin 25 mg 11/09/18 08:00 11/09/18 08:10 Lyrica PO 25 mg TID KWAME Administration Pregabalin 75 mg 11/09/18 08:00 11/09/18 08:10 Lyrica PO 75 mg TID KWAME Administration Sevelamer Carbonate 4,000 mg 11/09/18 08:00 11/09/18 08:09 Renvela PO 4,000 mg TIDWM KWAME Administration Sodium Chloride 10 ml 11/09/18 10:00 Sodium Chloride Flush Syringe 10 Ml IV BID KWAME Sodium Chloride 10 ml 11/08/18 22:08 Sodium Chloride Flush Syringe 10 Ml IV PRN PRN LINE FLUSH Trazodone HCl 50 mg 11/09/18 10:00 Desyrel PO BID KWAME Zolpidem Tartrate 10 mg 11/08/18 22:06 11/09/18 00:55 Ambien PO 10 mg QHS PRN Administration Sleep
[2018-11-09] MEDS ORDERED: PHENERGAN PO PRN (09:27)
[2018-11-09 09:34] LABS: Basophils % (Auto) 0.6 % (0.0-1.8); Eosinophils % (Auto) 0.5 % (0.0-4.3); Hematocrit 33.8 % (35.5-45.6); Hemoglobin 11.4 gm/dl (11.8-15.2); Lymphocytes # (Auto) 0.6 K/mm3 (1.2-5.4); Lymphocytes % (Auto) 9.9 % (13.4-35.0); Mean Corpuscular HGB Conc 34 % (32-34); Mean Corpuscular Volume 92 fl (84-94); Monocytes # (Auto) 0.5 K/mm3 (0.0-0.8); Monocytes % (Auto) 8.7 % (0.0-7.3); Red Blood Count 3.68 M/mm3 (3.65-5.03); Red Cell Distribution Width 17.7 % (13.2-15.2)
[2018-11-09 09:43] LABS: Platelet Count 97 K/mm3 (140-440)
[2018-11-09 10:07] LABS: Calcium 8.9 mg/dL (8.4-10.2)
--- NOTE | 2018-11-09 11:28 | Progress Note ---
Assessment and Plan Assessment and plan: --Lt Foot hematoma:s/p incision and drainage Surgery following, continue current management --S/P TMA[transmetatarsal amputation] Infection, x-ray no osteomyelitis, continue IV antibiotics Follow cultures --End Stage Renal disease on hemodialysis; Nephrology following, dialysis per schedule --Chronic hypotension; Closely monitor blood pressures, continue midodrine --DVT prophylaxis; Lovenox physical therapy occupational therapy Consults and recommendations noted Disposition; continue inpatient management discharged in medically stable History Interval history: Sincerely and examined medical records reviewed The patient underwent incision and drainage of the foot abscess Also received hemodialysis today Patient feels better, some pain at the surgical site Vital signs reviewed Hospitalist Physical - Constitutional Vitals: Temp Pulse Resp BP Pulse Ox 98.8 F 82 18 87/49 100 11/09/18 06:25 11/09/18 06:25 11/09/18 06:25 11/09/18 06:25 11/09/18 06:25 General appearance: Present: no acute distress, well-nourished - EENT Eyes: Present: PERRL, EOM intact - Neck Neck: Present: supple, normal ROM - Respiratory Respiratory effort: normal Respiratory: bilateral: diminished, negative: rales, rhonchi, wheezing - Cardiovascular Rhythm: regular Heart Sounds: Present: S1 & S2 - Extremities Extremities: abnormal (left foot dressing in place) - Abdominal General gastrointestinal: soft, non-tender, non-distended, normal bowel sounds - Integumentary Integumentary: Present: clear, warm - Psychiatric Psychiatric: appropriate mood/affect, cooperative - Neurologic Neurologic: CNII-XII intact, moves all extremities Results - Labs CBC & Chem 7: 11/09/18 08:24 11/09/18 08:24 Labs: Laboratory Last Values WBC 6.2 K/mm3 (4.5-11.0) 11/09/18 08:24 RBC 3.68 M/mm3 (3.65-5.03) 11/09/18 08:24 Hgb 11.4 gm/dl (11.8-15.2) L 11/09/18 08:24 Hct 33.8 % (35.5-45.6) L 11/09/18 08:24 MCV 92 fl (84-94) 11/09/18 08:24 MCH 31 pg (28-32) 11/09/18 08:24 MCHC 34 % (32-34) 11/09/18 08:24 RDW 17.7 % (13.2-15.2) H 11/09/18 08:24 Plt Count 97 K/mm3 (140-440) L 11/09/18 08:24 Lymph % (Auto) 9.9 % (13.4-35.0) L 11/09/18 08:24 Oliver % (Auto) 8.7 % (0.0-7.3) H 11/09/18 08:24 Eos % (Auto) 0.5 % (0.0-4.3) 11/09/18 08:24 Baso % (Auto) 0.6 % (0.0-1.8) 11/09/18 08:24 Lymph # 0.6 K/mm3 (1.2-5.4) L 11/09/18 08:24 Oliver # 0.5 K/mm3 (0.0-0.8) 11/09/18 08:24 Eos # 0.0 K/mm3 (0.0-0.4) 11/09/18 08:24 Baso # 0.0 K/mm3 (0.0-0.1) 11/09/18 08:24 Seg Neutrophils % 80.3 % (40.0-70.0) H 11/09/18 08:24 Seg Neutrophils # 5.0 K/mm3 (1.8-7.7) 11/09/18 08:24 PT 15.7 Sec. (12.2-14.9) H 11/08/18 14:33 INR 1.28 (0.87-1.13) H 11/08/18 14:33 VBG pH 7.369 (7.320-7.420) 11/08/18 14:33 Sodium 138 mmol/L (137-145) 11/09/18 08:24 Potassium 5.4 mmol/L (3.6-5.0) H 11/09/18 08:24 Chloride 92.1 mmol/L (98-107) L 11/09/18 08:24 Carbon Dioxide 28 mmol/L (22-30) 11/09/18 08:24 23 mmol/L 11/09/18 08:24 BUN 61 mg/dL (9-20) H 11/09/18 08:24 12.1 mg/dL (0.8-1.5) H 11/09/18 08:24 Estimated GFR 5 ml/min 11/09/18 08:24 5 % 11/09/18 08:24 Glucose 110 mg/dL (75-100) H 11/09/18 08:24 5.1 % (4-6) 11/08/18 14:33 Lactic Acid 0.70 mmol/L (0.7-2.0) 11/08/18 17:38 Calcium 8.9 mg/dL (8.4-10.2) 11/09/18 08:24 Phosphorus 4.70 mg/dL (2.5-4.5) H 11/09/18 08:24 0.50 mg/dL (0.1-1.2) 11/08/18 14:33 AST 38 units/L (5-40) 11/08/18 14:33 ALT < 5 units/L (7-56) L 11/08/18 14:33 100 units/L (35-129) 11/08/18 14:33 9.0 g/dL (6.3-8.2) H 11/08/18 14:33 4.1 g/dL (3.9-5) 11/08/18 14:33 0.8 % 11/08/18 14:33 Active Medications - Current Medications Current Medications: Generic Name Dose Route Start Last Admin Trade Name Freq PRN Reason Stop Dose Admin Acetaminophen 650 mg 11/08/18 22:08 Tylenol PO Q4H PRN Pain MILD(1-3)/Fever >100.5/WEST Alprazolam 2 mg 11/08/18 22:06 11/09/18 00:56 Xanax PO 2 mg TID PRN Administration Anxiety Aspirin 325 mg 11/09/18 10:00 Aspirin PO QDAY [facility] Atorvastatin Calcium 40 mg 11/09/18 22:00 Lipitor PO QHS [facility] Carvedilol 3.125 mg 11/09/18 10:00 Coreg PO BID [facility] Clopidogrel Bisulfate 75 mg 11/09/18 10:00 Plavix PO QDAY [facility] Famotidine 10 mg 11/08/18 23:00 11/09/18 01:03 Pepcid PO 10 mg BID KWAME Administration Sodium Chloride 100 mls @ 999 mls/hr 11/08/18 18:14 Nacl 0.9% IV DWIGHT PRN Hypotension Piperacillin Sod/Tazobactam Sod 2.25 gm in 50 mls @ 100 mls/hr 11/09/18 00:00 11/09/18 00:56 Zosyn/Ns 2.25 Gm/50ml IV 100 mls/hr Q8H KWAME Administration Protocol Vancomycin HCl 1 gm in 250 mls @ 167.007 mls/hr 11/09/18 18:00 Vancomycin/Ns 1 Gm/250 Ml IV 11/09/18 19:29 ONCE ONE Loperamide HCl 2 mg 11/08/18 22:06 Imodium PO Q2H PRN Diarrhea Methadone HCl 10 mg 11/09/18 10:00 Dolophine PO DAILY [facility]WAME Midodrine 5 mg 11/09/18 06:00 11/09/18 06:29 Proamatine PO 5 mg TID@0600,1200,1800 KWAME Administration Multivitamins 1 each 11/09/18 10:00 Theragran Tab PO QDAY [facility] Ondansetron HCl 4 mg 11/08/18 22:08 Zofran IV Q8H PRN Nausea And Vomiting Oxycodone/Acetaminophen 1 tab 11/08/18 22:06 11/09/18 08:10 Percocet 5/325 PO 1 tab Q4H PRN Administration Pain, Moderate (4-6) Pregabalin 25 mg 11/09/18 08:00 11/09/18 08:10 Lyrica PO 25 mg TID KWAME Administration Pregabalin 75 mg 11/09/18 08:00 11/09/18 08:10 Lyrica PO 75 mg TID KWAME Administration Promethazine HCl 25 mg 11/09/18 09:27 Phenergan PO Q4HR PRN N/V UNRELIEVED BY JESSICA Sevelamer Carbonate 4,000 mg 11/09/18 08:00 11/09/18 08:09 Renvela PO 4,000 mg TIDWM KWAME Administration Sodium Chloride 10 ml 11/09/18 10:00 Sodium Chloride Flush Syringe 10 Ml IV BID KWAME Sodium Chloride 10 ml 11/08/18 22:08 Sodium Chloride Flush Syringe 10 Ml IV PRN PRN LINE FLUSH Trazodone HCl 50 mg 11/09/18 10:00 Desyrel PO BID K[facility]AME Zolpidem Tartrate 10 mg 11/08/18 22:06 11/09/18 00:55 Ambien PO 10 mg QHS PRN Administration Sleep
--- NOTE | 2018-11-09 11:44 | Procedure Note ---
Date of procedure: 11/09/18 Pre-op diagnosis: Left foot wound hematoma Post-op diagnosis: same Procedure: I&D of left foot hematoma Description of procedure: Left foot was prepped and draped. Sutures were removed. Wound was opened with a moderate amount of old blood evacuated. The old blood was cultured. There was no overt infection. Some necrotic skin and SQ tissue was excised with scissors. Bleeding was minimal and was controlled with pressure. Wound was packed open with dry 4 X 4's followed by a Kerlix wrap. Pt tolerated the procedure well. Anesthesia: none Surgeon: YURIDIA STEWART Estimated blood loss: minimal Pathology: list (C&S) Specimen disposition: to lab Condition: stable Disposition: no change
[2018-11-09] MEDS: PLAVIX PO SCH (15:37)
[2018-11-09] MEDS: DOLOPHINE PO SCH (15:38)
[2018-11-09] MEDS: COREG PO SCH ×2 (15:38→22:05)
[2018-11-09] MEDS: DESYREL PO SCH ×2 (15:38→22:01)
[2018-11-09] MEDS: THERAGRAN Tab PO SCH (15:38)
[2018-11-09] MEDS: ASPIRIN PO SCH (15:38)
[2018-11-09] MEDS: SODIUM CHLORIDE FLUSH SYRINGE 10 ML IV SCH ×2 (15:51→22:05)
[2018-11-09] MEDS ORDERED: NACL 0.9 (PRIMING MACHINE ONLY DIALYSIS) MC ONE (17:43)
[2018-11-09] MEDS ORDERED: VANCOMYCIN/NS 1 GM/250 ML 1 GM/250 ML BAG IV ONE (18:00)
--- NOTE | 2018-11-09 23:51 | Event Note ---
Date: 11/09/18 Blood culture positive for gram negative rods. Patient is currently on Zosyn and vancomycin. Ordered ID consult
[2018-11-10] MEDS: ZOSYN/NS 2.25 GM/50ML 2.25 GM/50 ML BAG IV SCH ×3 (00:16→16:48)
[2018-11-10] MEDS: PROAMATINE PO SCH ×3 (05:36→18:19)
[2018-11-10 07:54] LABS: Calcium 9.5 mg/dL (8.4-10.2)
--- NOTE | 2018-11-10 08:57 | Progress Note ---
Assessment and Plan ESRD on hemodialysis: -no indication for HD today -Fluid restriction of 32 ounces per day -Renal diet -Obtain daily weights -Monitor I/O's -Assess dialysis needs daily S/P Transmetatarsal amputation, left 5th toe -Surgery done on 11/03/18 -Currently with left foot pain and fever -Foot x-ray shows possible cellulitis, no osteomyelitis -On IV Zosyn -Surgeon consulted Chronic Hypotension: -On Midodrine -Monitor BP Subjective Date of service: 11/10/18 Principal diagnosis: ESRD on HD Interval history: tolerated HD and surgery well yesterday Objective - Vital Signs Vital signs: Vital Signs - 12hr 11/09/18 11/09/18 11/09/18 21:40 22:05 23:10 Temperature 99.3 F Pulse Rate 89 Respiratory 16 Rate Blood Pressure 77/50 77/50 80/36 O2 Sat by Pulse 94 Oximetry 11/10/18 05:14 Temperature 98.5 F Pulse Rate 81 Respiratory 20 Rate Blood Pressure 75/46 O2 Sat by Pulse 97 Oximetry - General Appearance General appearance: well-developed, well-nourished, appears stated age EENT: ATNC, PERRL, mucous membranes moist Neck: no JVD, no carotid bruit Respiratory: Present: Clear to Ascultation Cardiology: regular, S1S2 Gastrointestinal: normoactive bowel sounds, no tenderness, no distended Integumentary: no rash, warm and dry Neurologic: no focal deficit, no asterixis, alert and oriented x3 Musculoskeletal: other (trace pitting edema in BLE) Psychiatric: mood/affect appropriate, cooperative - Lab 11/09/18 08:24 11/10/18 06:30 Most recent lab results Calcium 9.5 mg/dL (8.4-10.2) 11/10/18 06:30 Phosphorus 3.80 mg/dL (2.5-4.5) 11/10/18 06:30 Medications & Allergies - Medications Allergies/Adverse Reactions: Allergies No Known Allergies Allergy (Verified 09/06/18 10:32) Home Medications: Home Medications Medication Instructions Recorded Confirmed Last Taken Type Phenergan TAB 25 tab PO PRN 07/21/18 11/08/18 11/07/18 History Varenicline Tartrate [Chantix] 1 mg PO DAILY 07/21/18 11/08/18 11/02/18 History Aspirin 325 mg PO QDAY #30 tablet 07/28/18 11/08/18 11/07/18 Rx Loperamide [Imodium] 2 mg PO Q2H PRN capsule 07/28/18 11/08/18 11/07/18 Rx Methadone [Dolophine] 10 mg PO DAILY #10 tablet 07/28/18 11/08/18 11/07/18 Rx Midodrine [Proamatine] 5 mg PO TID #90 tablet 07/28/18 11/08/18 11/07/18 Rx Multivitamin Tab [Multiple Vitamin 1 each PO QDAY #30 tablet 07/28/18 11/08/18 11/07/18 Rx TAB (Theragran)] Pregabalin [Lyrica] 100 mg PO TID #30 capsule 07/28/18 11/08/18 11/07/18 Rx Sevelamer Carbonate [Renvela] 4,000 mg PO TIDWM #30 tablet 07/28/18 11/08/18 11/07/18 Rx Zolpidem [Ambien] 10 mg PO QHS PRN #12 tablet 07/28/18 11/08/18 11/07/18 Rx ALPRAZolam [Xanax TAB] 2 mg PO TID PRN 10/20/18 11/08/18 11/07/18 History AtorvaSTATin [Lipitor] 40 mg PO QHS #30 tablet 10/21/18 11/08/18 11/07/18 Rx Carvedilol [Coreg] 3.125 mg PO BID tablet 10/21/18 11/08/18 11/07/18 Rx Clopidogrel [Plavix] 75 mg PO QDAY #30 tablet 10/21/18 11/08/18 11/07/18 Rx traZODone [Desyrel] 50 mg PO BID 10/31/18 11/08/18 11/07/18 History oxyCODONE /ACETAMINOPHEN [Percocet 1 tab PO Q4HR PRN #40 tab 11/03/18 11/08/18 11/07/18 Rx 5/325] Active Medications: Generic Name Dose Route Start Last Admin Trade Name Freq PRN Reason Stop Dose Admin Acetaminophen 650 mg 11/08/18 22:08 Tylenol PO Q4H PRN Pain MILD(1-3)/Fever >100.5/WEST Alprazolam 2 mg 11/08/18 22:06 11/09/18 22:01 Xanax PO 2 mg TID PRN Administration Anxiety Aspirin 325 mg 11/09/18 10:00 11/09/18 15:38 Aspirin PO 325 mg QDAY KWAME Administration Atorvastatin Calcium 40 mg 11/09/18 22:00 11/09/18 22:01 Lipitor PO 40 mg QHS KWAME Administration Carvedilol 3.125 mg 11/09/18 10:00 11/09/18 22:05 Coreg PO Not Given BID [facility] Clopidogrel Bisulfate 75 mg 11/09/18 10:00 11/09/18 15:37 Plavix PO 75 mg QDAY KWAME Administration Famotidine 10 mg 11/08/18 23:00 11/09/18 22:01 Pepcid PO 10 mg BID KWAME Administration Sodium Chloride 100 mls @ 999 mls/hr 11/08/18 18:14 Nacl 0.9% IV DWIGHT PRN Hypotension Piperacillin Sod/Tazobactam Sod 2.25 gm in 50 mls @ 100 mls/hr 11/09/18 00:00 11/10/18 00:16 Zosyn/Ns 2.25 Gm/50ml IV 100 mls/hr Q8H KWAME Administration Protocol Loperamide HCl 2 mg 11/08/18 22:06 Imodium PO Q2H PRN Diarrhea Methadone HCl 10 mg 11/09/18 10:00 11/09/18 15:38 Dolophine PO 10 mg DAILY [facility] Administration Midodrine 5 mg 11/09/18 06:00 11/10/18 05:36 Proamatine PO 5 mg TID@0600,1200,1800 K[facility] Administration Multivitamins 1 each 11/09/18 10:00 11/09/18 15:38 Theragran Tab PO 1 each QDAY [facility] Administration Ondansetron HCl 4 mg 11/08/18 22:08 Zofran IV Q8H PRN Nausea And Vomiting Oxycodone/Acetaminophen 1 tab 11/08/18 22:06 11/09/18 08:10 Percocet 5/325 PO 1 tab Q4H PRN Administration Pain, Moderate (4-6) Pregabalin 25 mg 11/09/18 08:00 11/09/18 22:01 Lyrica PO 25 mg TID KWAME Administration Pregabalin 75 mg 11/09/18 08:00 11/09/18 22:01 Lyrica PO 75 mg TID KWAME Administration Promethazine HCl 25 mg 11/09/18 09:27 Phenergan PO Q4HR PRN N/V UNRELIEVED BY JESSICA Sevelamer Carbonate 4,000 mg 11/09/18 08:00 11/09/18 18:01 Renvela PO 4,000 mg TIDWM KWAME Administration Sodium Chloride 10 ml 11/09/18 10:00 11/09/18 22:05 Sodium Chloride Flush Syringe 10 Ml IV Not Given BID KWAME Sodium Chloride 10 ml 11/08/18 22:08 Sodium Chloride Flush Syringe 10 Ml IV PRN PRN LINE FLUSH Trazodone HCl 50 mg 11/09/18 10:00 11/09/18 22:01 Desyrel PO 50 mg BID KWAME Administration Zolpidem Tartrate 10 mg 11/08/18 22:06 11/09/18 22:01 Ambien PO 10 mg QHS PRN Administration Sleep
--- NOTE | 2018-11-10 10:20 | Consultation ---
History of Present Illness - Reason for Consult Consult date: 11/10/18 - History of Present Illness 53 yo M PMHx DM2, ESRD on HD, PVD, osteomyelitis of the L foot s/p partial 5th ray amputation on 11/03 admitted with new onset L foot pain. The pain began 5 days prior to admission in roughly the same area as the recent surgery. He notes some associated drainage at the site and surrounding redness. He notes some low grade fevers at home but denies sweats or chills. He notes missing dialysis on Wednesday and since then has complained of some orthopnea. He otherwise denies new symptoms. Febrile since admission with a Tmax of 100.9. CXR normal, foot Xray with evidence of cellulitis but not osteomyelitis. Normal WBC count. Wound and blood cultures are positive for GNR pending speciation and sensitivities. During his previous admission and surgery, his bone was sent for pathology and was proven with osteomyelitis. Clean margin was negative for osteo indicating surgical cure of the bone. Past History Past Medical History: diabetes, dialysis, ESRD, other (osteomyelitis) Past Surgical History: Other (Transmetatarsal amputation, left 5th toe, Left AVG placement, Spine surgery ) Social history: no significant social history. denies: smoking, alcohol abuse, IV drug use Family history: CAD, diabetes Medications and Allergies Allergies Allergy/AdvReac Type Severity Reaction Status Date / Time No Known Allergies Allergy Verified 09/06/18 10:32 Home Medications Medication Instructions Recorded Confirmed Last Taken Type Phenergan TAB 25 tab PO PRN 07/21/18 11/08/18 11/07/18 History Varenicline Tartrate [Chantix] 1 mg PO DAILY 07/21/18 11/08/18 11/02/18 History Aspirin 325 mg PO QDAY #30 tablet 07/28/18 11/08/18 11/07/18 Rx Loperamide [Imodium] 2 mg PO Q2H PRN capsule 07/28/18 11/08/18 11/07/18 Rx Methadone [Dolophine] 10 mg PO DAILY #10 tablet 07/28/18 11/08/18 11/07/18 Rx Midodrine [Proamatine] 5 mg PO TID #90 tablet 07/28/18 11/08/18 11/07/18 Rx Multivitamin Tab [Multiple Vitamin 1 each PO QDAY #30 tablet 07/28/18 11/08/18 11/07/18 Rx TAB (Theragran)] Pregabalin [Lyrica] 100 mg PO TID #30 capsule 07/28/18 11/08/18 11/07/18 Rx Sevelamer Carbonate [Renvela] 4,000 mg PO TIDWM #30 tablet 07/28/18 11/08/18 11/07/18 Rx Zolpidem [Ambien] 10 mg PO QHS PRN #12 tablet 07/28/18 11/08/18 11/07/18 Rx ALPRAZolam [Xanax TAB] 2 mg PO TID PRN 10/20/18 11/08/18 11/07/18 History AtorvaSTATin [Lipitor] 40 mg PO QHS #30 tablet 10/21/18 11/08/18 11/07/18 Rx Carvedilol [Coreg] 3.125 mg PO BID tablet 10/21/18 11/08/18 11/07/18 Rx Clopidogrel [Plavix] 75 mg PO QDAY #30 tablet 10/21/18 11/08/18 11/07/18 Rx traZODone [Desyrel] 50 mg PO BID 10/31/18 11/08/18 11/07/18 History oxyCODONE /ACETAMINOPHEN [Percocet 1 tab PO Q4HR PRN #40 tab 11/03/18 11/08/18 11/07/18 Rx 5/325] Active Meds: Active Medications Acetaminophen (Tylenol) 650 mg PO Q4H PRN PRN Reason: Pain MILD(1-3)/Fever >100.5/WEST Alprazolam (Xanax) 2 mg PO TID PRN PRN Reason: Anxiety Last Admin: 11/09/18 22:01 Dose: 2 mg Documented by: Aspirin (Aspirin) 325 mg PO QDAY [facility] Last Admin: 11/09/18 15:38 Dose: 325 mg Documented by: Atorvastatin Calcium (Lipitor) 40 mg PO QHS [facility] Last Admin: 11/09/18 22:01 Dose: 40 mg Documented by: Carvedilol (Coreg) 3.125 mg PO BID [facility] Last Admin: 11/09/18 22:05 Dose: Not Given Documented by: Clopidogrel Bisulfate (Plavix) 75 mg PO QDAY [facility] Last Admin: 11/09/18 15:37 Dose: 75 mg Documented by: Famotidine (Pepcid) 10 mg PO BID [facility] Last Admin: 11/09/18 22:01 Dose: 10 mg Documented by: Sodium Chloride (Nacl 0.9%) 100 mls @ 999 mls/hr IV DWIGHT PRN PRN Reason: Hypotension Piperacillin Sod/Tazobactam Sod (Zosyn/Ns 2.25 Gm/50ml) 2.25 gm in 50 mls @ 100 mls/hr IV Q8H [facility]; Protocol Last Admin: 11/10/18 00:16 Dose: 100 mls/hr Documented by: Loperamide HCl (Imodium) 2 mg PO Q2H PRN PRN Reason: Diarrhea Methadone HCl (Dolophine) 10 mg PO DAILY [facility] Last Admin: 11/09/18 15:38 Dose: 10 mg Documented by: Midodrine (Proamatine) 5 mg PO TID@0600,1200,1800 [facility] Last Admin: 11/10/18 05:36 Dose: 5 mg Documented by: Multivitamins (Theragran Tab) 1 each PO QDAY [facility] Last Admin: 11/09/18 15:38 Dose: 1 each Documented by: Ondansetron HCl (Zofran) 4 mg IV Q8H PRN PRN Reason: Nausea And Vomiting Oxycodone/Acetaminophen (Percocet 5/325) 1 tab PO Q4H PRN PRN Reason: Pain, Moderate (4-6) Last Admin: 11/09/18 08:10 Dose: 1 tab Documented by: Pregabalin (Lyrica) 25 mg PO TID [facility] Last Admin: 11/09/18 22:01 Dose: 25 mg Documented by: Pregabalin (Lyrica) 75 mg PO TID [facility] Last Admin: 11/09/18 22:01 Dose: 75 mg Documented by: Promethazine HCl (Phenergan) 25 mg PO Q4HR PRN PRN Reason: N/V UNRELIEVED BY JESSICA Sevelamer Carbonate (Renvela) 4,000 mg PO TIDWM [facility] Last Admin: 11/09/18 18:01 Dose: 4,000 mg Documented by: Sodium Chloride (Sodium Chloride Flush Syringe 10 Ml) 10 ml IV BID [facility] Last Admin: 11/09/18 22:05 Dose: Not Given Documented by: Sodium Chloride (Sodium Chloride Flush Syringe 10 Ml) 10 ml IV PRN PRN PRN Reason: LINE FLUSH Trazodone HCl (Desyrel) 50 mg PO BID [facility] Last Admin: 11/09/18 22:01 Dose: 50 mg Documented by: Zolpidem Tartrate (Ambien) 10 mg PO QHS PRN PRN Reason: Sleep Last Admin: 11/09/18 22:01 Dose: 10 mg Documented by: Review of Systems Constitutional: fever, no weight loss, no chills, no sweats Ears, nose, mouth and throat: no sinus pain, no dysphagia, no sore throat Cardiovascular: orthopnea, no chest pain, no palpitations, no rapid/irregular heart beat Respiratory: no cough, no shortness of breath, no wheezing Gastrointestinal: no abdominal pain, no nausea, no vomiting, no diarrhea Musculoskeletal: redness of joints, prior amputations, no low back pain Integumentary: redness, wounds, no rash, no pruritis Neurological: numbness, no weakness, no parathesias Psychiatric: no sleep disturbances, no insomnia, no disorientation Endocrine: no cold intolerance, no heat intolerance, no polydipsia, no polyuria Hematologic/Lymphatic: no easy bruising, no easy bleeding, no lymphadenopathy Physical Examination - Physical Exam Narrative exam: Constitutional: awake, no distress, following commands Head, Ears, Nose: Normocephalic, atraumatic. External ears, nose normal Eyes: Conjunctivae/corneas clear. No icterus. No ptosis. Neck: Supple, no meningeal signs Oral: Poor dentition, moist mucous membranes Cardiovascular: S1, S2 normal. Normal rhythm Respiratory: Good air entry, clear to auscultation bilaterally GI: Soft, non-tender; bowel sounds normal. No peritoneal signs Musculoskeletal: No pedal edema, Skin: L lateral foot wound 4cm across with bloody drainage on bandage. Hem/Lymphatic: No palpable cervical or supraclavicular nodes. No lymphangitis Psych: no agitation Neurological: Moves all extremities, no focal defects - Constitutional Vitals: Vital Signs Temp Pulse Resp BP Pulse Ox 98.5 F 81 20 75/46 97 11/10/18 05:14 11/10/18 05:14 11/10/18 05:14 11/10/18 05:14 11/10/18 05:14 Temperature -Last 24 Hours Temperature 98.5 F Temperature 99.3 F Temperature 100.9 F Temperature 98.6 F Results - Labs CBC & Chem 7: 11/09/18 08:24 11/10/18 06:30 Labs: Abnormal lab results 11/10/18 Range/Units 06:30 Sodium 135 L (137-145) mmol/L Chloride 90.1 L (98-107) mmol/L BUN 43 H (9-20) mg/dL Creatinine 9.1 H (0.8-1.5) mg/dL Glucose 133 H (75-100) mg/dL - Imaging and Cardiology Chest x-ray: image reviewed (normal) Assessment and Plan Cultures: 11/08 BCx - GNR 11/09 wound Cx - GNR A/P 53 yo M PMHx DM2, ESRD on HD, PVD, osteomyelitis of the L foot s/p partial 5th ray amputation on 11/03 admitted with new onset L foot pain. 1) wound infection - appears superficial at this time. Cultures are growing GNR, awaiting finalization. Discussed with Dr. Mcdonnell who doesn't believe this is a deeper infection. Will continue vancomycin and Zosyn pending finalization. Can stop vanco if no GPC grow. 2) Bacteremia - GNR, pending speciation. Will need 2 weeks therapy, can decide final antibiotic selection when culture final. 3) Recent Hx of osteomyelitis - s/p partial 5th ray amputation; clean margins achieved by surgery. 4) PVD 5) ESRD on HD 6) DM2 D/W Dr. Mcdonnell Recs: - continue vancomycin - continue Zosyn 2.25g q8h - follow up culture results MD [facility] C: [phone] O: [phone] F: [phone]
[2018-11-10] MEDS: SODIUM CHLORIDE FLUSH SYRINGE 10 ML IV SCH ×2 (11:15→22:00)
[2018-11-10] MEDS: DESYREL PO SCH ×2 (11:17→21:59)
[2018-11-10] MEDS: PLAVIX PO SCH (11:17)
[2018-11-10] MEDS: PEPCID PO SCH ×2 (11:18→21:59)
[2018-11-10] MEDS: LYRICA PO SCH ×6 (11:18→21:58)
[2018-11-10] MEDS: DOLOPHINE PO SCH (11:18)
[2018-11-10] MEDS: RENVELA PO SCH ×4 (11:22→18:09)
[2018-11-10] MEDS: THERAGRAN Tab PO SCH (11:23)
[2018-11-10] MEDS: COREG PO SCH (11:24)
[2018-11-10] MEDS: ASPIRIN PO SCH (11:24)
--- NOTE | 2018-11-10 12:04 | Progress Note ---
Assessment and Plan Assessment and plan: --Lt Foot hematoma:s/p incision and drainage Surgery following, continue current management --S/P TMA[transmetatarsal amputation] Infection, x-ray no osteomyelitis, continue IV antibiotics Follow cultures --End Stage Renal disease on hemodialysis; Nephrology following, dialysis per schedule --Chronic hypotension; Closely monitor blood pressures, continue midodrine --DVT prophylaxis; Lovenox physical therapy occupational therapy Consults and recommendations noted Disposition; continue inpatient management discharged in medically stable History Interval history: Patient seen and examined medical records reviewed Patient complains of some pain in the foot Alert awake oriented 3 Vital signs noted Hospitalist Physical - Constitutional Vitals: Temp Pulse Resp BP Pulse Ox 98.5 F 81 20 75/46 97 11/10/18 05:14 11/10/18 05:14 11/10/18 05:14 11/10/18 05:14 11/10/18 05:14 General appearance: Present: no acute distress, well-nourished - EENT Eyes: Present: PERRL, EOM intact - Neck Neck: Present: supple, normal ROM - Respiratory Respiratory effort: normal Respiratory: bilateral: diminished, negative: rales, rhonchi, wheezing - Cardiovascular Rhythm: regular Heart Sounds: Present: S1 & S2 - Extremities Extremities: abnormal (foot dressing in place) - Abdominal General gastrointestinal: soft, non-tender, non-distended, normal bowel sounds - Integumentary Integumentary: Present: clear, warm - Psychiatric Psychiatric: appropriate mood/affect, cooperative - Neurologic Neurologic: CNII-XII intact, moves all extremities Results - Labs CBC & Chem 7: 11/09/18 08:24 11/10/18 06:30 Labs: Laboratory Last Values WBC 6.2 K/mm3 (4.5-11.0) 11/09/18 08:24 RBC 3.68 M/mm3 (3.65-5.03) 11/09/18 08:24 Hgb 11.4 gm/dl (11.8-15.2) L 11/09/18 08:24 Hct 33.8 % (35.5-45.6) L 11/09/18 08:24 MCV 92 fl (84-94) 11/09/18 08:24 MCH 31 pg (28-32) 11/09/18 08:24 MCHC 34 % (32-34) 11/09/18 08:24 RDW 17.7 % (13.2-15.2) H 11/09/18 08:24 Plt Count 97 K/mm3 (140-440) L 11/09/18 08:24 Lymph % (Auto) 9.9 % (13.4-35.0) L 11/09/18 08:24 Ida % (Auto) 8.7 % (0.0-7.3) H 11/09/18 08:24 Eos % (Auto) 0.5 % (0.0-4.3) 11/09/18 08:24 Baso % (Auto) 0.6 % (0.0-1.8) 11/09/18 08:24 Lymph # 0.6 K/mm3 (1.2-5.4) L 11/09/18 08:24 Ida # 0.5 K/mm3 (0.0-0.8) 11/09/18 08:24 Eos # 0.0 K/mm3 (0.0-0.4) 11/09/18 08:24 Baso # 0.0 K/mm3 (0.0-0.1) 11/09/18 08:24 Seg Neutrophils % 80.3 % (40.0-70.0) H 11/09/18 08:24 Seg Neutrophils # 5.0 K/mm3 (1.8-7.7) 11/09/18 08:24 PT 15.7 Sec. (12.2-14.9) H 11/08/18 14:33 INR 1.28 (0.87-1.13) H 11/08/18 14:33 VBG pH 7.369 (7.320-7.420) 11/08/18 14:33 Sodium 135 mmol/L (137-145) L 11/10/18 06:30 Potassium 4.9 mmol/L (3.6-5.0) 11/10/18 06:30 Chloride 90.1 mmol/L (98-107) L 11/10/18 06:30 Carbon Dioxide 27 mmol/L (22-30) 11/10/18 06:30 23 mmol/L 11/10/18 06:30 BUN 43 mg/dL (9-20) H 11/10/18 06:30 9.1 mg/dL (0.8-1.5) H 11/10/18 06:30 Estimated GFR 7 ml/min 11/10/18 06:30 5 % 11/10/18 06:30 Glucose 133 mg/dL (75-100) H 11/10/18 06:30 5.1 % (4-6) 11/08/18 14:33 Lactic Acid 0.70 mmol/L (0.7-2.0) 11/08/18 17:38 Calcium 9.5 mg/dL (8.4-10.2) 11/10/18 06:30 Phosphorus 3.80 mg/dL (2.5-4.5) 11/10/18 06:30 0.50 mg/dL (0.1-1.2) 11/08/18 14:33 AST 38 units/L (5-40) 11/08/18 14:33 ALT < 5 units/L (7-56) L 11/08/18 14:33 100 units/L (35-129) 11/08/18 14:33 9.0 g/dL (6.3-8.2) H 11/08/18 14:33 4.1 g/dL (3.9-5) 11/08/18 14:33 0.8 % 11/08/18 14:33 Active Medications - Current Medications Current Medications: Generic Name Dose Route Start Last Admin Trade Name Freq PRN Reason Stop Dose Admin Acetaminophen 650 mg 11/08/18 22:08 Tylenol PO Q4H PRN Pain MILD(1-3)/Fever >100.5/WEST Alprazolam 2 mg 11/08/18 22:06 11/09/18 22:01 Xanax PO 2 mg TID PRN Administration Anxiety Aspirin 325 mg 11/09/18 10:00 11/10/18 11:24 Aspirin PO 325 mg QDAY [facility] Administration Atorvastatin Calcium 40 mg 11/09/18 22:00 11/09/18 22:01 Lipitor PO 40 mg QHS [facility] Administration Carvedilol 3.125 mg 11/09/18 10:00 11/10/18 11:24 Coreg PO Not Given BID [facility] Clopidogrel Bisulfate 75 mg 11/09/18 10:00 11/10/18 11:17 Plavix PO 75 mg QDAY [facility] Administration Famotidine 10 mg 11/08/18 23:00 11/10/18 11:18 Pepcid PO 10 mg BID [facility] Administration Sodium Chloride 100 mls @ 999 mls/hr 11/08/18 18:14 Nacl 0.9% IV DWIGHT PRN Hypotension Piperacillin Sod/Tazobactam Sod 2.25 gm in 50 mls @ 100 mls/hr 11/09/18 00:00 11/10/18 11:22 Zosyn/Ns 2.25 Gm/50ml IV 100 mls/hr Q8H [facility] Administration Protocol Loperamide HCl 2 mg 11/08/18 22:06 Imodium PO Q2H PRN Diarrhea Methadone HCl 10 mg 11/09/18 10:00 11/10/18 11:18 Dolophine PO 10 mg DAILY [facility] Administration Midodrine 5 mg 11/09/18 06:00 11/10/18 05:36 Proamatine PO 5 mg TID@0600,1200,1800 [facility] Administration Multivitamins 1 each 11/09/18 10:00 11/10/18 11:23 Theragran Tab PO 1 each QDAY [facility] Administration Ondansetron HCl 4 mg 11/08/18 22:08 Zofran IV Q8H PRN Nausea And Vomiting Oxycodone/Acetaminophen 1 tab 11/08/18 22:06 11/09/18 08:10 Percocet 5/325 PO 1 tab Q4H PRN Administration Pain, Moderate (4-6) Pregabalin 25 mg 11/09/18 08:00 11/10/18 11:18 Lyrica PO 25 mg TID [facility] Administration Pregabalin 75 mg 11/09/18 08:00 11/10/18 11:18 Lyrica PO 75 mg TID [facility] Administration Promethazine HCl 25 mg 11/09/18 09:27 Phenergan PO Q4HR PRN N/V UNRELIEVED BY JESSICA Sevelamer Carbonate 4,000 mg 11/09/18 08:00 11/10/18 11:22 Renvela PO Not Given TIDWM [facility] Sodium Chloride 10 ml 11/09/18 10:00 11/10/18 11:15 Sodium Chloride Flush Syringe 10 Ml IV 10 ml BID [facility] Administration Sodium Chloride 10 ml 11/08/18 22:08 Sodium Chloride Flush Syringe 10 Ml IV PRN PRN LINE FLUSH Trazodone HCl 50 mg 11/09/18 10:00 11/10/18 11:17 Desyrel PO 50 mg BID [facility] Administration Zolpidem Tartrate 10 mg 11/08/18 22:06 11/09/18 22:01 Ambien PO 10 mg QHS PRN Administration Sleep
[2018-11-10] MEDS: NACL 0.9% 250ML IV SCH (13:10)
--- NOTE | 2018-11-10 13:22 | Procedure Note ---
Date of procedure: 11/10/18 Pre-op diagnosis: Left lateral foot wound Post-op diagnosis: same Procedure: Debridement of necrotic skin, SQ, muscle and tendon from left foot wound Description of procedure. Left foot was prepped and draped. Necrotic skin, SQ tissue, muscle and tendon were surgically, excisionally debrided with forceps and scissors. Bleeding was minimal and was controlled with pressure. Wound was then dressed by the Wound Care nurse. Pt tolerated the procedure well. Final wound measurements were: 6 X 6 X 1.5 cm Anesthesia: none Surgeon: YURIDIA STEWART Estimated blood loss: minimal Pathology: none Specimen disposition: discarded Condition: stable Disposition: no change
[2018-11-11] MEDS: COREG PO SCH ×3 (00:35→21:30)
[2018-11-11] MEDS: ZOSYN/NS 2.25 GM/50ML 2.25 GM/50 ML BAG IV SCH ×3 (01:16→18:06)
[2018-11-11] MEDS: PROAMATINE PO SCH ×3 (05:11→17:53)
[2018-11-11 05:58] LABS: Calcium 9.6 mg/dL (8.4-10.2)
--- NOTE | 2018-11-11 09:18 | Progress Note ---
Assessment and Plan Cultures: 11/08 BCx - ESBL Klebsiella 11/09 wound Cx - ESBL Klebsiella, Enterococcus A/P 53 yo M PMHx DM2, ESRD on HD, PVD, osteomyelitis of the L foot s/p partial 5th ray amputation on 11/03 admitted with new onset L foot pain. 1) wound infection - appears superficial at this time. Wound culture grew ESBL Klebsiella and Enterococcus. Discussed with Dr. Mcdonnell who doesn't believe thi s is a deeper infection. s/p debridement of necrotic skin, SQ muscle and tendon from left foot 11/09/18. 2) ESBL Klebsiella Bacteremia - Will need 2 weeks therapy. 3) Recent Hx of osteomyelitis - s/p partial 5th ray amputation; clean margins achieved by surgery. 4) PVD 5) ESRD on HD 6) DM2 Recs: - continue vancomycin, D4 - continue Zosyn 2.25g q8h, D3 -Anticipate discharge on Zosyn 2.25 IV every 8 hours for total 2 weeks ending 11-23-18 and Vancomycin 1 gm post HD for 2 weeks ending 11-22-18 -Order placed with case management -Midline ordered -follow-up out patient wound care -follow up ID clinic in 2 weeks (sent to space scheduler) Dr. Mehta will be rounding on Wednesday. Dr. Hunt is online education manager this weekend, please call for questions [phone]. [facility] M: [phone] O:[phone] Subjective Date of service: 11/11/18 Principal diagnosis: ESRD on HD Interval history: Patient seen and examined in HD. Reports no acute distress or generalized weakness. Some agitation. No fevers Objective - Exam Narrative Exam: Constitutional: awake, no acute distress. Some agitation Head, Ears, Nose: Normocephalic, atraumatic. External ears, nose normal Eyes: Conjunctivae/corneas clear. No icterus. No ptosis. Neck: Supple, no meningeal signs Oral: Poor dentition, moist mucous membranes Cardiovascular: S1, S2 normal. Normal rhythm Respiratory: Good air entry, clear to auscultation bilaterally GI: Soft, non-tender; bowel sounds normal. No peritoneal signs Musculoskeletal: No pedal edema, Skin: L lateral foot wound 4cm across with bloody drainage on bandage. Hem/Lymphatic: No palpable cervical or supraclavicular nodes. No lymphangitis Psych: no agitation Neurological: Moves all extremities, no focal defects - Constitutional Vitals: Vital Signs Temp Pulse Resp BP Pulse Ox 97.6 F 80 16 90/50 92 11/11/18 05:19 11/11/18 05:19 11/11/18 05:19 11/11/18 05:19 11/11/18 05:19 Temperature -Last 24 Hours Temperature 97.6 F Temperature 98.7 F Temperature 97.6 F Temperature 98.4 F - Labs CBC & Chem 7: 11/09/18 08:24 11/11/18 05:02 Labs: Abnormal lab results 11/10/18 11/11/18 11/11/18 Range/Units 21:29 05:02 08:15 Potassium 5.2 H (3.6-5.0) mmol/L Chloride 93.0 L (98-107) mmol/L BUN 58 H (9-20) mg/dL Creatinine 10.5 H (0.8-1.5) mg/dL Glucose 121 H (75-100) mg/dL POC Glucose 118 H 151 H (70-105)
--- NOTE | 2018-11-11 09:55 | Progress Note ---
Assessment and Plan ESRD on hemodialysis: -HD for clearance and volume removal -Fluid restriction of 32 ounces per day -Renal diet -Obtain daily weights -Monitor I/O's -Assess dialysis needs daily S/P Transmetatarsal amputation, left 5th toe -Surgery done on 11/03/18 -Currently with left foot pain and fever -Foot x-ray shows possible cellulitis, no osteomyelitis -On IV Zosyn -Surgeon consulted Chronic Hypotension: -will increase Midorine to outpatient dose 10 mg TID -Monitor BP Subjective Date of service: 11/11/18 Principal diagnosis: ESRD on HD Interval history: seen during HD, tolerating Objective - Vital Signs Vital signs: Vital Signs - 12hr 11/10/18 11/11/18 21:55 05:19 Temperature 98.7 F 97.6 F Pulse Rate 79 80 Respiratory 18 16 Rate Blood Pressure 84/50 90/50 O2 Sat by Pulse 93 92 Oximetry - General Appearance General appearance: well-developed, well-nourished, appears stated age EENT: ATNC, PERRL, mucous membranes moist Neck: no JVD, no carotid bruit Respiratory: Present: Clear to Ascultation. Absent: Rales, Ronchi Cardiology: regular, S1S2 Gastrointestinal: normoactive bowel sounds, no tenderness, no distended Integumentary: no rash, warm and dry Neurologic: no focal deficit, no asterixis, alert and oriented x3 Musculoskeletal: other (trace pitting edema in BKLE) Psychiatric: mood/affect appropriate, cooperative - Lab 11/09/18 08:24 11/11/18 05:02 Most recent lab results Calcium 9.6 mg/dL (8.4-10.2) 11/11/18 05:02 Phosphorus 3.80 mg/dL (2.5-4.5) 11/11/18 05:02 Medications & Allergies - Medications Allergies/Adverse Reactions: Allergies No Known Allergies Allergy (Verified 09/06/18 10:32) Home Medications: Home Medications Medication Instructions Recorded Confirmed Last Taken Type Phenergan TAB 25 tab PO PRN 07/21/18 11/08/18 11/07/18 History Varenicline Tartrate [Chantix] 1 mg PO DAILY 07/21/18 11/08/18 11/02/18 History Aspirin 325 mg PO QDAY #30 tablet 04/11/08/18 11/07/18 Rx Loperamide [Imodium] 2 mg PO Q2H PRN capsule 07/28/18 11/08/18 11/07/18 Rx Methadone [Dolophine] 10 mg PO DAILY #10 tablet 07/28/18 11/08/18 11/07/18 Rx Midodrine [Proamatine] 5 mg PO TID #90 tablet 07/28/18 11/08/18 11/07/18 Rx Multivitamin Tab [Multiple Vitamin 1 each PO QDAY #30 tablet 07/28/18 11/08/18 11/07/18 Rx TAB (Theragran)] Pregabalin [Lyrica] 100 mg PO TID #30 capsule 07/28/18 11/08/18 11/07/18 Rx Sevelamer Carbonate [Renvela] 4,000 mg PO TIDWM #30 tablet 07/28/18 11/08/18 11/07/18 Rx Zolpidem [Ambien] 10 mg PO QHS PRN #12 tablet 07/28/18 11/08/18 11/07/18 Rx ALPRAZolam [Xanax TAB] 2 mg PO TID PRN 10/20/18 11/08/18 11/07/18 History AtorvaSTATin [Lipitor] 40 mg PO QHS #30 tablet 10/21/18 11/08/18 11/07/18 Rx Carvedilol [Coreg] 3.125 mg PO BID tablet 10/21/18 11/08/18 11/07/18 Rx Clopidogrel [Plavix] 75 mg PO QDAY #30 tablet 10/21/18 11/08/18 11/07/18 Rx traZODone [Desyrel] 50 mg PO BID 10/31/18 11/08/18 11/07/18 History oxyCODONE /ACETAMINOPHEN [Percocet 1 tab PO Q4HR PRN #40 tab 11/03/18 11/08/18 11/07/18 Rx 5/325] Active Medications: Generic Name Dose Route Start Last Admin Trade Name Freq PRN Reason Stop Dose Admin Acetaminophen 650 mg 11/08/18 22:08 Tylenol PO Q4H PRN Pain MILD(1-3)/Fever >100.5/WEST Alprazolam 2 mg 11/08/18 22:06 11/09/18 22:01 Xanax PO 2 mg TID PRN Administration Anxiety Aspirin 325 mg 11/09/18 10:00 11/10/18 11:24 Aspirin PO 325 mg QDAY [facility] Administration Atorvastatin Calcium 40 mg 11/09/18 22:00 11/10/18 21:58 Lipitor PO 40 mg QHS [facility] Administration Carvedilol 3.125 mg 11/09/18 10:00 11/11/18 00:35 Coreg PO Not Given BID [facility] Clopidogrel Bisulfate 75 mg 11/09/18 10:00 11/10/18 11:17 Plavix PO 75 mg QDAY [facility] Administration Famotidine 10 mg 11/08/18 23:00 11/10/18 21:59 Pepcid PO 10 mg BID [facility] Administration Sodium Chloride 100 mls @ 999 mls/hr 11/08/18 18:14 Nacl 0.9% IV DWIGHT PRN Hypotension Piperacillin Sod/Tazobactam Sod 2.25 gm in 50 mls @ 100 mls/hr 11/09/18 00:00 11/11/18 01:16 Zosyn/Ns 2.25 Gm/50ml IV 100 mls/hr Q8H [facility] Administration Protocol Vancomycin HCl 1 gm in 250 mls @ 167.007 mls/hr 11/11/18 18:00 Vancomycin/Ns 1 Gm/250 Ml IV [id number] [facility] Loperamide HCl 2 mg 11/08/18 22:06 Imodium PO Q2H PRN Diarrhea Methadone HCl 10 mg 11/09/18 10:00 11/10/18 11:18 Dolophine PO 10 mg DAILY [facility] Administration Midodrine 5 mg 11/09/18 06:00 11/11/18 05:11 Proamatine PO 5 mg TID@0600,1200,1800 [facility] Administration Multivitamins 1 each 11/09/18 10:00 11/10/18 11:23 Theragran Tab PO 1 each QDAY [facility] Administration Ondansetron HCl 4 mg 11/08/18 22:08 Zofran IV Q8H PRN Nausea And Vomiting Oxycodone/Acetaminophen 1 tab 11/08/18 22:06 11/09/18 08:10 Percocet 5/325 PO 1 tab Q4H PRN Administration Pain, Moderate (4-6) Pregabalin 25 mg 11/09/18 08:00 11/10/18 21:58 Lyrica PO 25 mg TID [facility] Administration Pregabalin 75 mg 11/09/18 08:00 11/10/18 21:58 Lyrica PO 75 mg TID [facility] Administration Promethazine HCl 25 mg 11/09/18 09:27 Phenergan PO Q4HR PRN N/V UNRELIEVED BY JESSICA Sevelamer Carbonate 4,000 mg 11/09/18 08:00 11/10/18 18:09 Renvela PO 4,000 mg TIDWM [facility] Administration Sodium Chloride 10 ml 11/09/18 10:00 11/10/18 22:00 Sodium Chloride Flush Syringe 10 Ml IV 10 ml BID [facility] Administration Sodium Chloride 10 ml 11/08/18 22:08 Sodium Chloride Flush Syringe 10 Ml IV PRN PRN LINE FLUSH Sodium Chloride 250 ml 11/10/18 13:00 11/10/18 13:10 Nacl 0.9% 250ml IV 250 ml DIRECT [facility] Administration Trazodone HCl 50 mg 11/09/18 10:00 11/10/18 21:59 Desyrel PO 50 mg BID [facility] Administration Zolpidem Tartrate 10 mg 11/08/18 22:06 11/09/18 22:01 Ambien PO 10 mg QHS PRN Administration Sleep
[2018-11-11] MEDS: LYRICA PO SCH ×6 (11:03→21:21)
[2018-11-11] MEDS: THERAGRAN Tab PO SCH (11:03)
[2018-11-11] MEDS: ASPIRIN PO SCH (11:57)
[2018-11-11] MEDS: RENVELA PO SCH ×3 (11:57→17:52)
[2018-11-11] MEDS: PEPCID PO SCH ×2 (11:57→21:21)
[2018-11-11] MEDS: DESYREL PO SCH ×2 (11:57→21:21)
[2018-11-11] MEDS: PLAVIX PO SCH (11:58)
[2018-11-11] MEDS: SODIUM CHLORIDE FLUSH SYRINGE 10 ML IV SCH (11:58)
[2018-11-11] MEDS: DOLOPHINE PO SCH (13:38)
--- NOTE | 2018-11-11 13:57 | Progress Note ---
Assessment and Plan Assessment and plan: --ESBL bacteremia : Contact isolation IV antibiotics, ID following --ESBL wound cultures : Contact isolation IV antibiotics, supportive care is --Lt Foot hematoma:s/p incision and drainage Surgery following, continue current management --S/P TMA[transmetatarsal amputation] Infection, x-ray no osteomyelitis, continue IV antibiotics Follow vascular evaluation and recommendations --End Stage Renal disease on hemodialysis; Nephrology following, dialysis per schedule --Chronic hypotension; Closely monitor blood pressures, continue midodrine --DVT prophylaxis; Lovenox physical therapy occupational therapy Consults and recommendations noted Disposition; continue inpatient management discharged in medically stable History Interval history: Patient is seen and examined, medical records reviewed Patient is concerned about his foot and very anxious Vascular, surgery, wound care following Wound and blood cultures positive for ESBL Placed on contact isolation ID following Vital signs reviewed Hospitalist Physical - Constitutional Vitals: Temp Pulse Resp BP Pulse Ox 97.6 F 89 16 99/51 92 11/11/18 12:48 11/11/18 12:48 11/11/18 12:48 11/11/18 12:48 11/11/18 05:19 General appearance: Present: no acute distress, well-nourished - EENT Eyes: Present: PERRL, EOM intact - Neck Neck: Present: supple, normal ROM - Respiratory Respiratory effort: normal Respiratory: bilateral: diminished, negative: rales, rhonchi, wheezing - Cardiovascular Rhythm: regular Heart Sounds: Present: S1 & S2 - Extremities Extremities: no ischemia, No edema - Abdominal General gastrointestinal: soft, non-tender, non-distended, normal bowel sounds - Integumentary Integumentary: Present: clear, warm - Psychiatric Psychiatric: appropriate mood/affect, cooperative - Neurologic Neurologic: CNII-XII intact, moves all extremities Results - Labs CBC & Chem 7: 11/09/18 08:24 11/11/18 05:02 Labs: Laboratory Last Values WBC 6.2 K/mm3 (4.5-11.0) 11/09/18 08:24 RBC 3.68 M/mm3 (3.65-5.03) 11/09/18 08:24 Hgb 11.4 gm/dl (11.8-15.2) L 11/09/18 08:24 Hct 33.8 % (35.5-45.6) L 11/09/18 08:24 MCV 92 fl (84-94) 11/09/18 08:24 MCH 31 pg (28-32) 11/09/18 08:24 MCHC 34 % (32-34) 11/09/18 08:24 RDW 17.7 % (13.2-15.2) H 11/09/18 08:24 Plt Count 97 K/mm3 (140-440) L 11/09/18 08:24 Lymph % (Auto) 9.9 % (13.4-35.0) L 11/09/18 08:24 [place] % (Auto) 8.7 % (0.0-7.3) H 11/09/18 08:24 Eos % (Auto) 0.5 % (0.0-4.3) 11/09/18 08:24 Baso % (Auto) 0.6 % (0.0-1.8) 11/09/18 08:24 Lymph # 0.6 K/mm3 (1.2-5.4) L 11/09/18 08:24 [place] # 0.5 K/mm3 (0.0-0.8) 11/09/18 08:24 Eos # 0.0 K/mm3 (0.0-0.4) 11/09/18 08:24 Baso # 0.0 K/mm3 (0.0-0.1) 11/09/18 08:24 Seg Neutrophils % 80.3 % (40.0-70.0) H 11/09/18 08:24 Seg Neutrophils # 5.0 K/mm3 (1.8-7.7) 11/09/18 08:24 PT 15.7 Sec. (12.2-14.9) H 11/08/18 14:33 INR 1.28 (0.87-1.13) H 11/08/18 14:33 VBG pH 7.369 (7.320-7.420) 11/08/18 14:33 Sodium 137 mmol/L (137-145) 11/11/18 05:02 Potassium 5.2 mmol/L (3.6-5.0) H 11/11/18 05:02 Chloride 93.0 mmol/L (98-107) L 11/11/18 05:02 Carbon Dioxide 25 mmol/L (22-30) 11/11/18 05:02 24 mmol/L 11/11/18 05:02 BUN 58 mg/dL (9-20) H 11/11/18 05:02 10.5 mg/dL (0.8-1.5) H 11/11/18 05:02 Estimated GFR 6 ml/min 11/11/18 05:02 6 % 11/11/18 05:02 Glucose 121 mg/dL (75-100) H 11/11/18 05:02 POC Glucose 151 (70-105) H 11/11/18 08:15 5.1 % (4-6) 11/08/18 14:33 Lactic Acid 0.70 mmol/L (0.7-2.0) 11/08/18 17:38 Calcium 9.6 mg/dL (8.4-10.2) 11/11/18 05:02 Phosphorus 3.80 mg/dL (2.5-4.5) 11/11/18 05:02 0.50 mg/dL (0.1-1.2) 11/08/18 14:33 AST 38 units/L (5-40) 11/08/18 14:33 ALT < 5 units/L (7-56) L 11/08/18 14:33 100 units/L (35-129) 11/08/18 14:33 9.0 g/dL (6.3-8.2) H 11/08/18 14:33 4.1 g/dL (3.9-5) 11/08/18 14:33 0.8 % 11/08/18 14:33 Random Vancomycin 16.0 ug/mL (0-40.0) 11/11/18 05:02 Active Medications - Current Medications Current Medications: Generic Name Dose Route Start Last Admin Trade Name Freq PRN Reason Stop Dose Admin Acetaminophen 650 mg 11/08/18 22:08 Tylenol PO Q4H PRN Pain MILD(1-3)/Fever >100.5/WEST Alprazolam 2 mg 11/08/18 22:06 11/09/18 22:01 Xanax PO 2 mg TID PRN Administration Anxiety Aspirin 325 mg 11/09/18 10:00 11/11/18 11:57 Aspirin PO Not Given QDAY KWAME Atorvastatin Calcium 40 mg 11/09/18 22:00 11/10/18 21:58 Lipitor PO 40 mg QHS [facility] Administration Carvedilol 3.125 mg 11/09/18 10:00 11/11/18 11:57 Coreg PO Not Given BID [facility] Clopidogrel Bisulfate 75 mg 11/09/18 10:00 11/11/18 11:58 Plavix PO Not Given QDAY [facility] Famotidine 10 mg 11/08/18 23:00 11/11/18 11:57 Pepcid PO Not Given BID [facility] Sodium Chloride 100 mls @ 999 mls/hr 11/08/18 18:14 Nacl 0.9% IV DWIGHT PRN Hypotension Piperacillin Sod/Tazobactam Sod 2.25 gm in 50 mls @ 100 mls/hr 11/09/18 00:00 11/11/18 11:03 Zosyn/Ns 2.25 Gm/50ml IV Not Given Q8H [facility] Protocol Vancomycin HCl 1 gm in 250 mls @ 167.007 mls/hr 11/11/18 18:00 Vancomycin/Ns 1 Gm/250 Ml IV [id number] [facility] Loperamide HCl 2 mg 11/08/18 22:06 Imodium PO Q2H PRN Diarrhea Methadone HCl 10 mg 11/09/18 10:00 11/11/18 13:38 Dolophine PO 10 mg DAILY [facility] Administration Midodrine 10 mg 11/11/18 09:53 11/11/18 12:49 Proamatine PO Not Given TID@0600,1200,1800 [facility] Multivitamins 1 each 11/09/18 10:00 11/11/18 11:03 Theragran Tab PO Not Given QDAY [facility] Ondansetron HCl 4 mg 11/08/18 22:08 Zofran IV Q8H PRN Nausea And Vomiting Oxycodone/Acetaminophen 1 tab 11/08/18 22:06 11/09/18 08:10 Percocet 5/325 PO 1 tab Q4H PRN Administration Pain, Moderate (4-6) Pregabalin 25 mg 11/09/18 08:00 11/11/18 13:37 Lyrica PO 25 mg TID [facility] Administration Pregabalin 75 mg 11/09/18 08:00 11/11/18 13:37 Lyrica PO 75 mg TID [facility] Administration Promethazine HCl 25 mg 11/09/18 09:27 Phenergan PO Q4HR PRN N/V UNRELIEVED BY JESSICA Sevelamer Carbonate 4,000 mg 11/09/18 08:00 11/11/18 13:34 Renvela PO 4,000 mg TIDWM KWAME Administration Sodium Chloride 10 ml 11/09/18 10:00 11/11/18 11:58 Sodium Chloride Flush Syringe 10 Ml IV Not Given BID KWAME Sodium Chloride 10 ml 11/08/18 22:08 Sodium Chloride Flush Syringe 10 Ml IV PRN PRN LINE FLUSH Sodium Chloride 250 ml 11/10/18 13:00 11/10/18 13:10 Nacl 0.9% 250ml IV 250 ml DIRECT KWAME Administration Trazodone HCl 50 mg 11/09/18 10:00 11/11/18 11:57 Desyrel PO Not Given BID KWAME Zolpidem Tartrate 10 mg 11/08/18 22:06 11/09/18 22:01 Ambien PO 10 mg QHS PRN Administration Sleep
--- NOTE | 2018-11-11 15:00 | Consultation ---
History of Present Illness - Reason for Consult Consult date: 11/11/18 nonhealing wounds on his left foot - History of Present Illness Patient with history of end-stage renal disease on hemodialysis and peripheral vascular disease presents with nonhealing wounds on his left foot. Per patient, he is undergone extensive wound care as an outpatient and an amputation of fifth digit on his left foot. His wounds are been slow to heal. Arterial duplex performed in July demonstrate triphasic flow proximally and monophasic flow distally. Past History Past Medical History: diabetes, dialysis, ESRD, other (osteomyelitis) Past Surgical History: Other (Transmetatarsal amputation, left 5th toe, Left AVG placement, Spine surgery ) Social history: no significant social history. denies: smoking, alcohol abuse, IV drug use Family history: CAD, diabetes Medications and Allergies Allergies Allergy/AdvReac Type Severity Reaction Status Date / Time No Known Allergies Allergy Verified 09/06/18 10:32 Home Medications Medication Instructions Recorded Confirmed Last Taken Type Phenergan TAB 25 tab PO PRN 07/21/18 11/08/18 11/07/18 History Varenicline Tartrate [Chantix] 1 mg PO DAILY 07/21/18 11/08/18 11/02/18 History Aspirin 325 mg PO QDAY #30 tablet 07/28/18 11/08/18 11/07/18 Rx Loperamide [Imodium] 2 mg PO Q2H PRN capsule 07/28/18 11/08/18 11/07/18 Rx Methadone [Dolophine] 10 mg PO DAILY #10 tablet 07/28/18 11/08/18 11/07/18 Rx Midodrine [Proamatine] 5 mg PO TID #90 tablet 07/28/18 11/08/18 11/07/18 Rx Multivitamin Tab [Multiple Vitamin 1 each PO QDAY #30 tablet 07/28/18 11/08/18 11/07/18 Rx TAB (Theragran)] Pregabalin [Lyrica] 100 mg PO TID #30 capsule 07/28/18 11/08/18 11/07/18 Rx Sevelamer Carbonate [Renvela] 4,000 mg PO TIDWM #30 tablet 07/28/18 11/08/18 11/07/18 Rx Zolpidem [Ambien] 10 mg PO QHS PRN #12 tablet 07/28/18 11/08/18 11/07/18 Rx ALPRAZolam [Xanax TAB] 2 mg PO TID PRN 10/20/18 11/08/18 11/07/18 History AtorvaSTATin [Lipitor] 40 mg PO QHS #30 tablet 10/21/18 11/08/18 11/07/18 Rx Carvedilol [Coreg] 3.125 mg PO BID tablet 10/21/18 11/08/18 11/07/18 Rx Clopidogrel [Plavix] 75 mg PO QDAY #30 tablet 10/21/18 11/08/18 11/07/18 Rx traZODone [Desyrel] 50 mg PO BID 10/31/18 11/08/18 11/07/18 History oxyCODONE /ACETAMINOPHEN [Percocet 1 tab PO Q4HR PRN #40 tab 11/03/18 11/08/18 11/07/18 Rx 5/325] Active Meds: Active Medications Acetaminophen (Tylenol) 650 mg PO Q4H PRN PRN Reason: Pain MILD(1-3)/Fever >100.5/WEST Alprazolam (Xanax) 2 mg PO TID PRN PRN Reason: Anxiety Last Admin: 11/09/18 22:01 Dose: 2 mg Documented by: Aspirin (Aspirin) 325 mg PO QDAY [facility] Last Admin: 11/11/18 11:57 Dose: Not Given Documented by: Atorvastatin Calcium (Lipitor) 40 mg PO QHS [facility] Last Admin: 11/10/18 21:58 Dose: 40 mg Documented by: Carvedilol (Coreg) 3.125 mg PO BID [facility] Last Admin: 11/11/18 11:57 Dose: Not Given Documented by: Clopidogrel Bisulfate (Plavix) 75 mg PO QDAY [facility] Last Admin: 11/11/18 11:58 Dose: Not Given Documented by: Famotidine (Pepcid) 10 mg PO BID [facility] Last Admin: 11/11/18 11:57 Dose: Not Given Documented by: Sodium Chloride (Nacl 0.9%) 100 mls @ 999 mls/hr IV DWIGHT PRN PRN Reason: Hypotension Piperacillin Sod/Tazobactam Sod (Zosyn/Ns 2.25 Gm/50ml) 2.25 gm in 50 mls @ 100 mls/hr IV Q8H [facility]; Protocol Last Admin: 11/11/18 11:03 Dose: Not Given Documented by: Vancomycin HCl (Vancomycin/Ns 1 Gm/250 Ml) 1 gm in 250 mls @ 167.007 mls/hr IV [id number] [facility] Loperamide HCl (Imodium) 2 mg PO Q2H PRN PRN Reason: Diarrhea Methadone HCl (Dolophine) 10 mg PO DAILY [facility] Last Admin: 11/11/18 13:38 Dose: 10 mg Documented by: Midodrine (Proamatine) 10 mg PO TID@0600,1200,1800 [facility] Last Admin: 11/11/18 12:49 Dose: Not Given Documented by: Multivitamins (Theragran Tab) 1 each PO QDAY [facility] Last Admin: 11/11/18 11:03 Dose: Not Given Documented by: Ondansetron HCl (Zofran) 4 mg IV Q8H PRN PRN Reason: Nausea And Vomiting Oxycodone/Acetaminophen (Percocet 5/325) 1 tab PO Q4H PRN PRN Reason: Pain, Moderate (4-6) Last Admin: 11/09/18 08:10 Dose: 1 tab Documented by: Pregabalin (Lyrica) 25 mg PO TID [facility] Last Admin: 11/11/18 13:37 Dose: 25 mg Documented by: Pregabalin (Lyrica) 75 mg PO TID [facility] Last Admin: 11/11/18 13:37 Dose: 75 mg Documented by: Promethazine HCl (Phenergan) 25 mg PO Q4HR PRN PRN Reason: N/V UNRELIEVED BY JESSICA Sevelamer Carbonate (Renvela) 4,000 mg PO TIDWM [facility] Last Admin: 11/11/18 13:34 Dose: 4,000 mg Documented by: Sodium Chloride (Sodium Chloride Flush Syringe 10 Ml) 10 ml IV BID [facility] Last Admin: 11/11/18 11:58 Dose: Not Given Documented by: Sodium Chloride (Sodium Chloride Flush Syringe 10 Ml) 10 ml IV PRN PRN PRN Reason: LINE FLUSH Sodium Chloride (Nacl 0.9% 250ml) 250 ml IV DIRECT [facility] Last Admin: 11/10/18 13:10 Dose: 250 ml Documented by: Trazodone HCl (Desyrel) 50 mg PO BID [facility] Last Admin: 11/11/18 11:57 Dose: Not Given Documented by: Zolpidem Tartrate (Ambien) 10 mg PO QHS PRN PRN Reason: Sleep Last Admin: 11/09/18 22:01 Dose: 10 mg Documented by: Review of Systems All systems: negative Exam - Constitutional Vitals: Temp Pulse Resp BP Pulse Ox 97.6 F 89 16 99/51 92 11/11/18 12:48 11/11/18 12:48 11/11/18 12:48 11/11/18 12:48 11/11/18 05:19 General appearance: Present: no acute distress - EENT Eyes: Present: EOM intact ENT: hearing intact - Neck Neck: Present: supple, normal ROM - Respiratory Respiratory effort: normal - Extremities Extremities: abnormal - Abdominal General gastrointestinal: Present: deferred Male genitourinary: Present: deferred - Rectal Rectal Exam: deferred - Psychiatric Psychiatric: appropriate mood/affect, cooperative Results - Labs CBC & Chem 7: 11/09/18 08:24 11/11/18 05:02 Labs: Abnormal lab results 11/10/18 11/11/18 11/11/18 Range/Units 21:29 05:02 08:15 Potassium 5.2 H (3.6-5.0) mmol/L Chloride 93.0 L (98-107) mmol/L BUN 58 H (9-20) mg/dL Creatinine 10.5 H (0.8-1.5) mg/dL Glucose 121 H (75-100) mg/dL POC Glucose 118 H 151 H (70-105) Assessment and Plan The patient will be scheduled for diagnostic angiography with revascularization on Wednesday. He will need to continue with aggressive wound care
[2018-11-11] MEDS: VANCOMYCIN/NS 1 GM/250 ML 1 GM/250 ML BAG IV SCH (18:06)
[2018-11-12] MEDS: SODIUM CHLORIDE FLUSH SYRINGE 10 ML IV SCH ×3 (02:53→22:38)
[2018-11-12] MEDS: ZOSYN/NS 2.25 GM/50ML 2.25 GM/50 ML BAG IV SCH ×4 (02:54→17:45)
[2018-11-12] MEDS: VANCOMYCIN/NS 1 GM/250 ML 1 GM/250 ML BAG IV SCH (02:55)
[2018-11-12] MEDS ORDERED: AUGMENTIN 500 MG PO ONE (04:24)
--- NOTE | 2018-11-12 04:26 | Event Note ---
Date: 11/12/18 Pt does not have IV access. A coates is a hard stick and has been stuck multiple times but unable to obtain access. There is an order pending for midline/PICC line. Patient was unable to receive scheduled IV Zosyn and vancomycin. Spoke with pharmacist and ordered one time dose of Augmentin 500 mg as a substitute for the IV Zosyn. Unable to find an oral substitute for IV vancomycin.
[2018-11-12] MEDS: XANAX PO PRN ×2 (04:56→22:41)
[2018-11-12] MEDS: PROAMATINE PO SCH ×3 (05:43→17:32)
[2018-11-12 06:18] LABS: Calcium 9.7 mg/dL (8.4-10.2)
[2018-11-12] MEDS: LYRICA PO SCH ×6 (09:06→22:36)
[2018-11-12] MEDS: RENVELA PO SCH ×3 (09:07→17:32)
--- NOTE | 2018-11-12 10:56 | Progress Note ---
Assessment and Plan 53 year old male with 5th digit amputation of the LLE now with 4th digit duskiness consulted for vascular evaluation. Due to duskiness, and prior monophasic LLE ultrasound, will plan on angiography of the left lower extremity with possible revascularization. R/B/A discussed. Subjective Date of service: 11/12/18 Principal diagnosis: ESRD on HD Interval history: Discussed with the patient the plan for angiography of the left lower extremity on wednesday. Patient is in agreement with the plan. Palpable dorsalis pedal pulses, nonpalpable posterior tibial pulses. Objective - Constitutional Vitals: Vital Signs - 12hr 11/12/18 05:26 Temperature 98.5 F Pulse Rate 87 Respiratory 18 Rate Blood Pressure 87/53 O2 Sat by Pulse 90 Oximetry General appearance: Present: no acute distress - EENT Eyes: EOM intact ENT: hearing intact - Respiratory Respiratory effort: normal Extremities: normal temperature, normal color, abnormal (amputation of left 5th digit and dusky 4th digit ; pulse exam in subjective) - Psychiatric Psychiatric: appropriate mood/affect, cooperative - Labs CBC & Chem 7: 11/09/18 08:24 11/12/18 05:12 Labs: Abnormal lab results 11/11/18 11/11/18 11/12/18 Range/Units 17:53 21:21 05:12 Sodium 135 L (137-145) mmol/L Chloride 89.7 L (98-107) mmol/L BUN 38 H (9-20) mg/dL Creatinine 8.1 H (0.8-1.5) mg/dL POC Glucose 168 H 113 H (70-105) Medications & Allergies - Medications Allergies/Adverse Reactions: Allergies No Known Allergies Allergy (Verified 09/06/18 10:32) Home Medications: Home Medications Medication Instructions Recorded Confirmed Last Taken Type Phenergan TAB 25 tab PO PRN 07/21/18 11/08/18 11/07/18 History Varenicline Tartrate [Chantix] 1 mg PO DAILY 07/21/18 11/08/18 11/02/18 History Aspirin 325 mg PO QDAY #30 tablet 07/28/18 11/08/18 11/07/18 Rx Loperamide [Imodium] 2 mg PO Q2H PRN capsule 07/28/18 11/08/18 11/07/18 Rx Methadone [Dolophine] 10 mg PO DAILY #10 tablet 07/28/18 11/08/18 11/07/18 Rx Midodrine [Proamatine] 5 mg PO TID #90 tablet 07/28/18 11/08/18 11/07/18 Rx Multivitamin Tab [Multiple Vitamin 1 each PO QDAY #30 tablet 07/28/18 11/08/18 11/07/18 Rx TAB (Theragran)] Pregabalin [Lyrica] 100 mg PO TID #30 capsule 07/28/18 11/08/18 11/07/18 Rx Sevelamer Carbonate [Renvela] 4,000 mg PO TIDWM #30 tablet 07/28/18 11/08/18 11/07/18 Rx Zolpidem [Ambien] 10 mg PO QHS PRN #12 tablet 07/28/18 11/08/18 11/07/18 Rx ALPRAZolam [Xanax TAB] 2 mg PO TID PRN 10/20/18 11/08/18 11/07/18 History AtorvaSTATin [Lipitor] 40 mg PO QHS #30 tablet 10/21/18 11/08/18 11/07/18 Rx Carvedilol [Coreg] 3.125 mg PO BID tablet 10/21/18 11/08/18 11/07/18 Rx Clopidogrel [Plavix] 75 mg PO QDAY #30 tablet 10/21/18 11/08/18 11/07/18 Rx traZODone [Desyrel] 50 mg PO BID 10/31/18 11/08/18 11/07/18 History oxyCODONE /ACETAMINOPHEN [Percocet 1 tab PO Q4HR PRN #40 tab 11/03/18 11/08/18 11/07/18 Rx 5/325] Active Medications: Generic Name Dose Route Start Last Admin Trade Name Freq PRN Reason Stop Dose Admin Acetaminophen 650 mg 11/08/18 22:08 Tylenol PO Q4H PRN Pain MILD(1-3)/Fever >100.5/WEST Alprazolam 2 mg 11/08/18 22:06 11/12/18 04:56 Xanax PO 2 mg TID PRN Administration Anxiety Aspirin 325 mg 11/09/18 10:00 11/11/18 11:57 Aspirin PO Not Given QDAY KWAME Atorvastatin Calcium 40 mg 11/09/18 22:00 11/11/18 21:21 Lipitor PO 40 mg QHS [facility] Administration Carvedilol 3.125 mg 11/09/18 10:00 11/11/18 21:30 Coreg PO Not Given BID [facility] Clopidogrel Bisulfate 75 mg 11/09/18 10:00 11/11/18 11:58 Plavix PO Not Given QDAY KWAME Famotidine 10 mg 11/08/18 23:00 11/11/18 21:21 Pepcid PO 10 mg BID KWAME Administration Sodium Chloride 100 mls @ 999 mls/hr 11/08/18 18:14 Nacl 0.9% IV DWIGHT PRN Hypotension Piperacillin Sod/Tazobactam Sod 2.25 gm in 50 mls @ 100 mls/hr 11/09/18 00:00 11/12/18 09:08 Zosyn/Ns 2.25 Gm/50ml IV Not Given Q8H [facility] Protocol Vancomycin HCl 1 gm in 250 mls @ 167.007 mls/hr 11/11/18 18:00 11/12/18 02:55 Vancomycin/Ns 1 Gm/250 Ml IV Not Given [id number] [facility] Loperamide HCl 2 mg 11/08/18 22:06 Imodium PO Q2H PRN Diarrhea Methadone HCl 10 mg 11/09/18 10:00 11/11/18 13:38 Dolophine PO 10 mg DAILY [facility] Administration Midodrine 10 mg 11/11/18 09:53 11/12/18 05:43 Proamatine PO 10 mg TID@0600,1200,1800 [facility] Administration Multivitamins 1 each 11/09/18 10:00 11/11/18 11:03 Theragran Tab PO Not Given QDAY [facility] Ondansetron HCl 4 mg 11/08/18 22:08 Zofran IV Q8H PRN Nausea And Vomiting Oxycodone/Acetaminophen 1 tab 11/08/18 22:06 11/09/18 08:10 Percocet 5/325 PO 1 tab Q4H PRN Administration Pain, Moderate (4-6) Pregabalin 25 mg 11/09/18 08:00 11/12/18 09:06 Lyrica PO 25 mg TID KWAME Administration Pregabalin 75 mg 11/09/18 08:00 11/12/18 09:06 Lyrica PO 75 mg TID [facility] Administration Promethazine HCl 25 mg 11/09/18 09:27 Phenergan PO Q4HR PRN N/V UNRELIEVED BY JESSICA Guelamer Carbonate 4,000 mg 11/09/18 08:00 11/12/18 09:07 Renvela PO Not Given TIDWM [facility] Sodium Chloride 10 ml 11/09/18 10:00 11/12/18 02:53 Sodium Chloride Flush Syringe 10 Ml IV Not Given BID KWAME Sodium Chloride 10 ml 11/08/18 22:08 Sodium Chloride Flush Syringe 10 Ml IV PRN PRN LINE FLUSH Sodium Chloride 250 ml 11/10/18 13:00 11/10/18 13:10 Nacl 0.9% 250ml IV 250 ml DIRECT KWAME Administration Trazodone HCl 50 mg 11/09/18 10:00 11/11/18 21:21 Desyrel PO 50 mg BID K[facility] Administration Zolpidem Tartrate 10 mg 11/08/18 22:06 11/09/18 22:01 Ambien PO 10 mg QHS PRN Administration Sleep
[2018-11-12] MEDS: COREG PO SCH ×2 (11:22→22:35)
[2018-11-12] MEDS: THERAGRAN Tab PO SCH (11:33)
[2018-11-12] MEDS: ASPIRIN PO SCH (11:34)
[2018-11-12] MEDS: DESYREL PO SCH ×2 (11:34→22:34)
[2018-11-12] MEDS: PEPCID PO SCH ×2 (11:34→22:35)
[2018-11-12] MEDS: PLAVIX PO SCH (11:34)
[2018-11-12] MEDS: DOLOPHINE PO SCH (11:35)
--- NOTE | 2018-11-12 12:50 | Progress Note ---
Assessment and Plan Assessment and plan: --ESBL bacteremia : Contact isolation IV antibiotics, ID following,change antibiotic to Ertapenem --ESBL wound cultures : Contact isolation IV antibiotics, supportive care is --Lt Foot hematoma:s/p incision and drainage Surgery following, continue current management --S/P TMA[transmetatarsal amputation] Infection, x-ray no osteomyelitis, continue IV antibiotics Follow vascular evaluation and recommendations --Vascular disease; vascular evaluated the patient Planning CT angiogram on 11/14/2018 --End Stage Renal disease on hemodialysis; Nephrology following, dialysis per schedule --Chronic hypotension; Closely monitor blood pressures, continue midodrine --DVT prophylaxis; Lovenox physical therapy occupational therapy Consults and recommendations noted Disposition; continue inpatient management History Interval history: Past and examined medical records reviewed Patient's blood and wound cultures positive for ESBL Placed on contact isolation Antibiotics changed to ertapenem Patient complains of some pain in the foot Vital signs noted Hospitalist Physical - Constitutional Vitals: Temp Pulse Resp BP Pulse Ox 98.5 F 77 18 100/65 90 11/12/18 05:26 11/12/18 11:21 11/12/18 05:26 11/12/18 11:22 11/12/18 05:26 General appearance: Present: no acute distress, well-nourished - EENT Eyes: Present: PERRL, EOM intact - Neck Neck: Present: supple, normal ROM - Respiratory Respiratory effort: normal Respiratory: bilateral: diminished, negative: rales, rhonchi, wheezing - Cardiovascular Rhythm: regular Heart Sounds: Present: S1 & S2 - Extremities Extremities: abnormal (left foot dressing intact) - Abdominal General gastrointestinal: soft, non-tender, non-distended, normal bowel sounds - Integumentary Integumentary: Present: clear, warm - Psychiatric Psychiatric: appropriate mood/affect, cooperative - Neurologic Neurologic: moves all extremities Results - Labs CBC & Chem 7: 11/09/18 08:24 11/12/18 05:12 Labs: Laboratory Last Values WBC 6.2 K/mm3 (4.5-11.0) 11/09/18 08:24 RBC 3.68 M/mm3 (3.65-5.03) 11/09/18 08:24 Hgb 11.4 gm/dl (11.8-15.2) L 11/09/18 08:24 Hct 33.8 % (35.5-45.6) L 11/09/18 08:24 MCV 92 fl (84-94) 11/09/18 08:24 MCH 31 pg (28-32) 11/09/18 08:24 MCHC 34 % (32-34) 11/09/18 08:24 RDW 17.7 % (13.2-15.2) H 11/09/18 08:24 Plt Count 97 K/mm3 (140-440) L 11/09/18 08:24 Lymph % (Auto) 9.9 % (13.4-35.0) L 11/09/18 08:24 [place] % (Auto) 8.7 % (0.0-7.3) H 11/09/18 08:24 Eos % (Auto) 0.5 % (0.0-4.3) 11/09/18 08:24 Baso % (Auto) 0.6 % (0.0-1.8) 11/09/18 08:24 Lymph # 0.6 K/mm3 (1.2-5.4) L 11/09/18 08:24 [place] # 0.5 K/mm3 (0.0-0.8) 11/09/18 08:24 Eos # 0.0 K/mm3 (0.0-0.4) 11/09/18 08:24 Baso # 0.0 K/mm3 (0.0-0.1) 11/09/18 08:24 Seg Neutrophils % 80.3 % (40.0-70.0) H 11/09/18 08:24 Seg Neutrophils # 5.0 K/mm3 (1.8-7.7) 11/09/18 08:24 PT 15.7 Sec. (12.2-14.9) H 11/08/18 14:33 INR 1.28 (0.87-1.13) H 11/08/18 14:33 VBG pH 7.369 (7.320-7.420) 11/08/18 14:33 Sodium 135 mmol/L (137-145) L 11/12/18 05:12 Potassium 4.5 mmol/L (3.6-5.0) 11/12/18 05:12 Chloride 89.7 mmol/L (98-107) L 11/12/18 05:12 Carbon Dioxide 27 mmol/L (22-30) 11/12/18 05:12 23 mmol/L 11/12/18 05:12 BUN 38 mg/dL (9-20) H 11/12/18 05:12 8.1 mg/dL (0.8-1.5) H 11/12/18 05:12 Estimated GFR 9 ml/min 11/12/18 05:12 5 % 11/12/18 05:12 Glucose 97 mg/dL (75-100) 11/12/18 05:12 POC Glucose 113 (70-105) H 11/11/18 21:21 5.1 % (4-6) 11/08/18 14:33 Lactic Acid 0.70 mmol/L (0.7-2.0) 11/08/18 17:38 Calcium 9.7 mg/dL (8.4-10.2) 11/12/18 05:12 Phosphorus 3.60 mg/dL (2.5-4.5) 11/12/18 05:12 0.50 mg/dL (0.1-1.2) 11/08/18 14:33 AST 38 units/L (5-40) 11/08/18 14:33 ALT < 5 units/L (7-56) L 11/08/18 14:33 100 units/L (35-129) 11/08/18 14:33 9.0 g/dL (6.3-8.2) H 11/08/18 14:33 4.1 g/dL (3.9-5) 11/08/18 14:33 0.8 % 11/08/18 14:33 Random Vancomycin 16.0 ug/mL (0-40.0) 11/11/18 05:02 Active Medications - Current Medications Current Medications: Generic Name Dose Route Start Last Admin Trade Name Freq PRN Reason Stop Dose Admin Acetaminophen 650 mg 11/08/18 22:08 Tylenol PO Q4H PRN Pain MILD(1-3)/Fever >100.5/WEST Alprazolam 2 mg 11/08/18 22:06 11/12/18 04:56 Xanax PO 2 mg TID PRN Administration Anxiety Aspirin 325 mg 11/09/18 10:00 11/12/18 11:34 Aspirin PO 325 mg QDAY KWAME Administration Atorvastatin Calcium 40 mg 11/09/18 22:00 11/11/18 21:21 Lipitor PO 40 mg QHS KWAME Administration Carvedilol 3.125 mg 11/09/18 10:00 11/12/18 11:22 Coreg PO Not Given BID KWAME Clopidogrel Bisulfate 75 mg 11/09/18 10:00 11/12/18 11:34 Plavix PO 75 mg QDAY KWAME Administration Famotidine 10 mg 11/08/18 23:00 11/12/18 11:34 Pepcid PO 10 mg BID KWAME Administration Sodium Chloride 100 mls @ 999 mls/hr 11/08/18 18:14 Nacl 0.9% IV DWIGHT PRN Hypotension Piperacillin Sod/Tazobactam Sod 2.25 gm in 50 mls @ 100 mls/hr 11/09/18 00:00 11/12/18 11:34 Zosyn/Ns 2.25 Gm/50ml IV 100 mls/hr Q8H KWAME Administration Protocol Vancomycin HCl 1 gm in 250 mls @ 167.007 mls/hr 11/11/18 18:00 11/12/18 02:55 Vancomycin/Ns 1 Gm/250 Ml IV Not Given [id number] [facility] Loperamide HCl 2 mg 11/08/18 22:06 Imodium PO Q2H PRN Diarrhea Methadone HCl 10 mg 11/09/18 10:00 11/12/18 11:35 Dolophine PO 10 mg DAILY KWAME Administration Midodrine 10 mg 11/11/18 09:53 11/12/18 11:33 Proamatine PO 10 mg TID@0600,1200,1800 [facility] Administration Multivitamins 1 each 11/09/18 10:00 11/12/18 11:33 Theragran Tab PO 1 each QDAY [facility] Administration Ondansetron HCl 4 mg 11/08/18 22:08 Zofran IV Q8H PRN Nausea And Vomiting Oxycodone/Acetaminophen 1 tab 11/08/18 22:06 11/09/18 08:10 Percocet 5/325 PO 1 tab Q4H PRN Administration Pain, Moderate (4-6) Pregabalin 25 mg 11/09/18 08:00 11/12/18 09:06 Lyrica PO 25 mg TID KWAME Administration Pregabalin 75 mg 11/09/18 08:00 11/12/18 09:06 Lyrica PO 75 mg TID KWAME Administration Promethazine HCl 25 mg 11/09/18 09:27 Phenergan PO Q4HR PRN N/V UNRELIEVED BY JESSICA Sevelamer Carbonate 4,000 mg 11/09/18 08:00 11/12/18 09:07 Renvela PO Not Given TIDWM KWAME Sodium Chloride 10 ml 11/09/18 10:00 11/12/18 11:47 Sodium Chloride Flush Syringe 10 Ml IV 10 ml BID KWAME Administration Sodium Chloride 10 ml 11/08/18 22:08 Sodium Chloride Flush Syringe 10 Ml IV PRN PRN LINE FLUSH Sodium Chloride 250 ml 11/10/18 13:00 11/10/18 13:10 Nacl 0.9% 250ml IV 250 ml DIRECT KWAME Administration Trazodone HCl 50 mg 11/09/18 10:00 11/12/18 11:34 Desyrel PO 50 mg BID KWAME Administration Zolpidem Tartrate 10 mg 11/08/18 22:06 11/09/18 22:01 Ambien PO 10 mg QHS PRN Administration Sleep
--- NOTE | 2018-11-12 13:15 | Progress Note ---
Assessment and Plan ESRD on hemodialysis: -no indication for HD todat -Fluid restriction of 32 ounces per day -Renal diet -Obtain daily weights -Monitor I/O's -Assess dialysis needs daily S/P Transmetatarsal amputation, left 5th toe -Surgery done on 11/03/18 -Currently with left foot pain and fever -Foot x-ray shows possible cellulitis, no osteomyeliti -Surgeon consulted Chronic Hypotension: Midorine 10 mg TID -Monitor BP Subjective Date of service: 11/12/18 Principal diagnosis: ESRD on HD Interval history: tolerated HD well yesterday Objective - Vital Signs Vital signs: Vital Signs - 12hr 11/12/18 11/12/18 11/12/18 05:26 11:21 11:22 Temperature 98.5 F Pulse Rate 87 77 Respiratory 18 Rate Blood Pressure 87/53 100/65 Blood Pressure 100/65 [Left] O2 Sat by Pulse 90 Oximetry - General Appearance General appearance: well-developed, well-nourished EENT: ATNC, PERRL, mucous membranes moist Neck: no JVD, no carotid bruit Respiratory: Present: Clear to Ascultation. Absent: Rales, Ronchi Cardiology: regular, S1S2 Gastrointestinal: normoactive bowel sounds Integumentary: no rash, warm and dry Neurologic: no focal deficit, no asterixis, alert and oriented x3 Musculoskeletal: other (no edema in BLE) Psychiatric: mood/affect appropriate, cooperative - Lab 11/09/18 08:24 11/12/18 05:12 Most recent lab results Calcium 9.7 mg/dL (8.4-10.2) 11/12/18 05:12 Phosphorus 3.60 mg/dL (2.5-4.5) 11/12/18 05:12 Medications & Allergies - Medications Allergies/Adverse Reactions: Allergies No Known Allergies Allergy (Verified 09/06/18 10:32) Home Medications: Home Medications Medication Instructions Recorded Confirmed Last Taken Type Phenergan TAB 25 tab PO PRN 07/21/18 11/08/18 11/07/18 History Varenicline Tartrate [Chantix] 1 mg PO DAILY 07/21/18 11/08/18 11/02/18 History Aspirin 325 mg PO QDAY #30 tablet 07/28/18 11/08/18 11/07/18 Rx Loperamide [Imodium] 2 mg PO Q2H PRN capsule 07/28/18 11/08/18 11/07/18 Rx Methadone [Dolophine] 10 mg PO DAILY #10 tablet 07/28/18 11/08/18 11/07/18 Rx Midodrine [Proamatine] 5 mg PO TID #90 tablet 07/28/18 11/08/18 11/07/18 Rx Multivitamin Tab [Multiple Vitamin 1 each PO QDAY #30 tablet 07/28/18 11/08/18 11/07/18 Rx TAB (Theragran)] Pregabalin [Lyrica] 100 mg PO TID #30 capsule 07/28/18 11/08/18 11/07/18 Rx Sevelamer Carbonate [Renvela] 4,000 mg PO TIDWM #30 tablet 07/28/18 11/08/18 Rx Zolpidem [Ambien] 10 mg PO QHS PRN #12 tablet 07/28/18 11/08/18 11/07/18 Rx ALPRAZolam [Xanax TAB] 2 mg PO TID PRN 10/20/18 11/08/18 11/07/18 History AtorvaSTATin [Lipitor] 40 mg PO QHS #30 tablet 10/21/18 11/08/18 11/07/18 Rx Carvedilol [Coreg] 3.125 mg PO BID tablet 10/21/18 11/08/18 11/07/18 Rx Clopidogrel [Plavix] 75 mg PO QDAY #30 tablet 10/21/18 11/08/18 11/07/18 Rx traZODone [Desyrel] 50 mg PO BID 10/31/18 11/08/18 11/07/18 History oxyCODONE /ACETAMINOPHEN [Percocet 1 tab PO Q4HR PRN #40 tab 11/03/18 11/08/18 11/07/18 Rx 5/325] Active Medications: Generic Name Dose Route Start Last Admin Trade Name Freq PRN Reason Stop Dose Admin Acetaminophen 650 mg 11/08/18 22:08 Tylenol PO Q4H PRN Pain MILD(1-3)/Fever >100.5/WEST Alprazolam 2 mg 11/08/18 22:06 11/12/18 04:56 Xanax PO 2 mg TID PRN Administration Anxiety Aspirin 325 mg 11/09/18 10:00 11/12/18 11:34 Aspirin PO 325 mg QDAY KWAME Administration Atorvastatin Calcium 40 mg 11/09/18 22:00 11/11/18 21:21 Lipitor PO 40 mg QHS KWAME Administration Carvedilol 3.125 mg 11/09/18 10:00 11/12/18 11:22 Coreg PO Not Given BID KWAME Clopidogrel Bisulfate 75 mg 11/09/18 10:00 11/12/18 11:34 Plavix PO 75 mg QDAY KWAME Administration Famotidine 10 mg 11/08/18 23:00 11/12/18 11:34 Pepcid PO 10 mg BID KWAME Administration Sodium Chloride 100 mls @ 999 mls/hr 11/08/18 18:14 Nacl 0.9% IV DWIGHT PRN Hypotension Piperacillin Sod/Tazobactam Sod 2.25 gm in 50 mls @ 100 mls/hr 11/09/18 00:00 11/12/18 11:34 Zosyn/Ns 2.25 Gm/50ml IV 100 mls/hr Q8H KWAME Administration Protocol Vancomycin HCl 1 gm in 250 mls @ 167.007 mls/hr 11/11/18 18:00 11/12/18 02:55 Vancomycin/Ns 1 Gm/250 Ml IV Not Given [id number] [facility] Loperamide HCl 2 mg 11/08/18 22:06 Imodium PO Q2H PRN Diarrhea Methadone HCl 10 mg 11/09/18 10:00 11/12/18 11:35 Dolophine PO 10 mg DAILY KWAME Administration Midodrine 10 mg 11/11/18 09:53 11/12/18 11:33 Proamatine PO 10 mg TID@0600,1200,1800 [facility] Administration Multivitamins 1 each 11/09/18 10:00 11/12/18 11:33 Theragran Tab PO 1 each QDAY [facility] Administration Ondansetron HCl 4 mg 11/08/18 22:08 Zofran IV Q8H PRN Nausea And Vomiting Oxycodone/Acetaminophen 1 tab 11/08/18 22:06 11/09/18 08:10 Percocet 5/325 PO 1 tab Q4H PRN Administration Pain, Moderate (4-6) Pregabalin 25 mg 11/09/18 08:00 08/03/19 09:06 Lyrica PO 25 mg TID KWAME Administration Pregabalin 75 mg 11/09/18 08:00 11/12/18 09:06 Lyrica PO 75 mg TID KWAME Administration Promethazine HCl 25 mg 11/09/18 09:27 Phenergan PO Q4HR PRN N/V UNRELIEVED BY JESSICA Sevelamer Carbonate 4,000 mg 11/09/18 08:00 11/12/18 09:07 Renvela PO Not Given TIDWM KWAME Sodium Chloride 10 ml 11/09/18 10:00 11/12/18 11:47 Sodium Chloride Flush Syringe 10 Ml IV 10 ml BID KWAME Administration Sodium Chloride 10 ml 11/08/18 22:08 Sodium Chloride Flush Syringe 10 Ml IV PRN PRN LINE FLUSH Sodium Chloride 250 ml 11/10/18 13:00 11/10/18 13:10 Nacl 0.9% 250ml IV 250 ml DIRECT KWAME Administration Trazodone HCl 50 mg 11/09/18 10:00 11/12/18 11:34 Desyrel PO 50 mg BID KWAME Administration Zolpidem Tartrate 10 mg 11/08/18 22:06 11/09/18 22:01 Ambien PO 10 mg QHS PRN Administration Sleep
[2018-11-13] MEDS: PROAMATINE PO SCH ×3 (06:19→18:21)
[2018-11-13] MEDS: RENVELA PO SCH ×3 (08:43→18:22)
[2018-11-13] MEDS: LYRICA PO SCH ×6 (08:44→21:19)
[2018-11-13] MEDS: PEPCID PO SCH ×2 (10:49→21:19)
[2018-11-13] MEDS: THERAGRAN Tab PO SCH (10:49)
[2018-11-13] MEDS: PLAVIX PO SCH (10:49)
[2018-11-13] MEDS: ASPIRIN PO SCH (10:49)
[2018-11-13] MEDS: SODIUM CHLORIDE FLUSH SYRINGE 10 ML IV SCH ×2 (10:50→21:19)
[2018-11-13] MEDS: COREG PO SCH ×2 (10:51→21:21)
[2018-11-13] MEDS: INVanz 1 GM in NACL 0.9% 50 ML IV SCH (10:51)
[2018-11-13] MEDS: DOLOPHINE PO SCH (10:52)
[2018-11-13] MEDS: DESYREL PO SCH ×2 (11:04→21:19)
--- NOTE | 2018-11-13 11:37 | Progress Note ---
Assessment and Plan Cultures: 11/08 BCx - ESBL Klebsiella 11/09 wound Cx - ESBL Klebsiella, Enterococcus A/P 53 yo M PMHx DM2, ESRD on HD, PVD, osteomyelitis of the L foot s/p partial 5th ray amputation on 11/03 admitted with new onset L foot pain. 1) wound infection - appears superficial at this time. Wound culture grew ESBL Klebsiella and Enterococcus. Discussed with Dr. Mcdonnell who doesn't believe thi s is a deeper infection. s/p debridement of necrotic skin, SQ muscle and tendon from left foot 11/09/18. 2) ESBL Klebsiella Bacteremia - Will need 2 weeks therapy. 3) Recent Hx of osteomyelitis - s/p partial 5th ray amputation; clean margins achieved by surgery. 4) PVD 5) ESRD on HD 6) DM2 Recs: -Zosyn discontinued -currently being treated with ertapenenem and Vancomycin -follow-up out patient wound care -follow up ID clinic in 2 weeks (sent to [facility]) [facility] M: [phone] O:[phone] Subjective Date of service: 11/13/18 Principal diagnosis: ESRD on HD Interval history: Patient seen and examined in HD. Reports no acute distress or generalized weakness. Some agitation. No fevers Objective - Exam Narrative Exam: Constitutional: awake, no acute distress. Some agitation Head, Ears, Nose: Normocephalic, atraumatic. External ears, nose normal Eyes: Conjunctivae/corneas clear. No icterus. No ptosis. Neck: Supple, no meningeal signs Oral: Poor dentition, moist mucous membranes Cardiovascular: S1, S2 normal. Normal rhythm Respiratory: Good air entry, clear to auscultation bilaterally GI: Soft, non-tender; bowel sounds normal. No peritoneal signs Musculoskeletal: No pedal edema, Skin: L lateral foot wound 4cm across with bloody drainage on bandage. Hem/Lymphatic: No palpable cervical or supraclavicular nodes. No lymphangitis Psych: no agitation Neurological: Moves all extremities, no focal defects - Constitutional Vitals: Vital Signs Temp Pulse Resp BP Pulse Ox 97.6 F 77 18 96/59 90 11/13/18 06:15 11/13/18 10:51 11/13/18 06:15 11/13/18 10:51 11/13/18 06:15 Temperature -Last 24 Hours Temperature 97.6 F Temperature 97.8 F Temperature 98.2 F - Labs CBC & Chem 7: 11/09/18 08:24 11/13/18 04:57 Labs: Abnormal lab results 11/13/18 Range/Units 04:57 Sodium 134 L (137-145) mmol/L Potassium 5.2 H (3.6-5.0) mmol/L Chloride 89.6 L (98-107) mmol/L BUN 52 H (9-20) mg/dL Creatinine 10.0 H (0.8-1.5) mg/dL Glucose 115 H (75-100) mg/dL
--- NOTE | 2018-11-13 12:53 | Progress Note ---
Assessment and Plan ESRD on hemodialysis: -HD tomorrow for clearance and volume removal -Fluid restriction of 32 ounces per day -Renal diet -Obtain daily weights -Monitor I/O's -Assess dialysis needs daily S/P Transmetatarsal amputation, left 5th toe -Surgery done on 11/03/18 -Currently with left foot pain and fever -Foot x-ray shows possible cellulitis, no osteomyelitis -Surgeon consulted Chronic Hypotension: Midorine 10 mg TID -Monitor BP Subjective Date of service: 11/13/18 Principal diagnosis: ESRD on HD Interval history: denies acute issues Objective - Vital Signs Vital signs: Vital Signs - 12hr 11/13/18 11/13/18 11/13/18 06:15 10:45 10:51 Temperature 97.6 F Pulse Rate 60 77 Respiratory 18 Rate Blood Pressure 96/49 95/59 96/59 O2 Sat by Pulse 90 Oximetry - General Appearance General appearance: well-developed, well-nourished, appears stated age EENT: ATNC, PERRL, mucous membranes moist Neck: no JVD, no carotid bruit Respiratory: Present: Clear to Ascultation. Absent: Rales, Ronchi Cardiology: regular, S1S2 Gastrointestinal: normoactive bowel sounds, no tenderness, no distended Integumentary: no rash, warm and dry Neurologic: no focal deficit, no asterixis, alert and oriented x3 Musculoskeletal: other (no edema in BLE) Psychiatric: cooperative - Lab 11/09/18 08:24 11/13/18 04:57 Most recent lab results Calcium 9.0 mg/dL (8.4-10.2) 11/13/18 04:57 Phosphorus 4.00 mg/dL (2.5-4.5) 11/13/18 04:57 Medications & Allergies - Medications Allergies/Adverse Reactions: Allergies No Known Allergies Allergy (Verified 09/06/18 10:32) Home Medications: Home Medications Medication Instructions Recorded Confirmed Last Taken Type Phenergan TAB 25 tab PO PRN 07/21/18 11/08/18 11/07/18 History Varenicline Tartrate [Chantix] 1 mg PO DAILY 07/21/18 11/08/18 11/02/18 History Aspirin 325 mg PO QDAY #30 tablet 07/28/18 11/08/18 11/07/18 Rx Loperamide [Imodium] 2 mg PO Q2H PRN capsule 07/28/18 11/08/18 11/07/18 Rx Methadone [Dolophine] 10 mg PO DAILY #10 tablet 07/28/18 11/08/18 11/07/18 Rx Midodrine [Proamatine] 5 mg PO TID #90 tablet 07/28/18 11/08/18 11/07/18 Rx Multivitamin Tab [Multiple Vitamin 1 each PO QDAY #30 tablet 07/28/18 11/08/18 11/07/18 Rx TAB (Theragran)] Pregabalin [Lyrica] 100 mg PO TID #30 capsule 07/28/18 11/08/18 11/07/18 Rx Sevelamer Carbonate [Renvela] 4,000 mg PO TIDWM #30 tablet 07/28/18 11/08/18 11/07/18 Rx Zolpidem [Ambien] 10 mg PO QHS PRN #12 tablet 07/28/18 11/08/18 11/07/18 Rx ALPRAZolam [Xanax TAB] 2 mg PO TID PRN 10/20/18 11/08/18 11/07/18 History AtorvaSTATin [Lipitor] 40 mg PO QHS #30 tablet 10/21/18 11/08/18 11/07/18 Rx Carvedilol [Coreg] 3.125 mg PO BID tablet 10/21/18 11/08/18 11/07/18 Rx Clopidogrel [Plavix] 75 mg PO QDAY #30 tablet 10/21/18 11/08/18 11/07/18 Rx traZODone [Desyrel] 50 mg PO BID 10/31/18 11/08/18 11/07/18 History oxyCODONE /ACETAMINOPHEN [Percocet 1 tab PO Q4HR PRN #40 tab 11/03/18 11/08/18 11/07/18 Rx 5/325] Active Medications: Generic Name Dose Route Start Last Admin Trade Name Freq PRN Reason Stop Dose Admin Acetaminophen 650 mg 11/08/18 22:08 Tylenol PO Q4H PRN Pain MILD(1-3)/Fever >100.5/WEST Alprazolam 2 mg 11/08/18 22:06 11/12/18 22:41 Xanax PO 2 mg TID PRN Administration Anxiety Aspirin 325 mg 11/09/18 10:00 11/13/18 10:49 Aspirin PO 325 mg QDAY KWAME Administration Atorvastatin Calcium 40 mg 11/09/18 22:00 11/12/18 22:35 Lipitor PO 40 mg QHS KWAME Administration Carvedilol 3.125 mg 11/09/18 10:00 11/13/18 10:51 Coreg PO Not Given BID KWAME Clopidogrel Bisulfate 75 mg 11/09/18 10:00 11/13/18 10:49 Plavix PO 75 mg QDAY KWAME Administration Famotidine 10 mg 11/08/18 23:00 11/13/18 10:49 Pepcid PO 10 mg BID KWAME Administration Sodium Chloride 100 mls @ 999 mls/hr 11/08/18 18:14 Nacl 0.9% IV DWIGHT PRN Hypotension Vancomycin HCl 1 gm in 250 mls @ 167.007 mls/hr 11/11/18 18:00 11/12/18 02:55 Vancomycin/Ns 1 Gm/250 Ml IV Not Given [id number] KWAME Ertapenem 1 gm/ Sodium 50 mls @ 100 mls/hr 11/13/18 10:00 11/13/18 10:51 Chloride IV 100 mls/hr QDAY KWAME Administration Loperamide HCl 2 mg 11/08/18 22:06 Imodium PO Q2H PRN Diarrhea Methadone HCl 10 mg 11/09/18 10:00 11/13/18 10:52 Dolophine PO 10 mg DAILY KWAME Administration Midodrine 10 mg 11/11/18 09:53 11/13/18 12:34 Proamatine PO 10 mg TID@0600,1200,1800 KWAME Administration Multivitamins 1 each 11/09/18 10:00 11/13/18 10:49 Theragran Tab PO 1 each QDAY KWAME Administration Ondansetron HCl 4 mg 11/08/18 22:08 Zofran IV Q8H PRN Nausea And Vomiting Oxycodone/Acetaminophen 1 tab 11/08/18 22:06 11/09/18 08:10 Percocet 5/325 PO 1 tab Q4H PRN Administration Pain, Moderate (4-6) Pregabalin 25 mg 11/09/18 08:00 11/13/18 08:44 Lyrica PO 25 mg TID KWAME Administration Pregabalin 75 mg 11/09/18 08:00 11/13/18 08:44 Lyrica PO 75 mg TID KWAME Administration Promethazine HCl 25 mg 11/09/18 09:27 Phenergan PO Q4HR PRN N/V UNRELIEVED BY JESSICA Sevelamer Carbonate 4,000 mg 11/09/18 08:00 11/13/18 12:33 Renvela PO 4,000 mg TIDWM KWAME Administration Sodium Chloride 10 ml 11/09/18 10:00 11/13/18 10:50 Sodium Chloride Flush Syringe 10 Ml IV 10 ml BID KWAME Administration Sodium Chloride 10 ml 11/08/18 22:08 11/12/18 22:36 Sodium Chloride Flush Syringe 10 Ml IV 10 ml PRN PRN Administration LINE FLUSH Sodium Chloride 250 ml 11/10/18 13:00 11/10/18 13:10 Nacl 0.9% 250ml IV 250 ml DIRECT KWAME Administration Trazodone HCl 50 mg 11/09/18 10:00 11/13/18 11:04 Desyrel PO Not Given BID KWAME Zolpidem Tartrate 10 mg 11/08/18 22:06 11/09/18 22:01 Ambien PO 10 mg QHS PRN Administration Sleep
--- NOTE | 2018-11-13 19:23 | Progress Note ---
Assessment and Plan Assessment and plan: --Paripheral Vascular disease; vascular following CTAngiography of the left lower extremity with possible revascularization tomorrow. --ESBL bacteremia : Contact isolation IV antibiotics, ID following,change antibiotic to Ertapenem --ESBL wound cultures : Contact isolation IV antibiotics, supportive care is --Lt Foot hematoma:s/p incision and drainage Surgery following, continue current management --S/P TMA[transmetatarsal amputation] Infection, x-ray no osteomyelitis, continue IV antibiotics Follow vascular evaluation and recommendations --End Stage Renal disease on hemodialysis; Nephrology following, dialysis per schedule --Chronic hypotension; Closely monitor blood pressures, continue midodrine --DVT prophylaxis; Lovenox physical therapy occupational therapy Consults and recommendations noted Disposition; continue inpatient management Follow CT angiogram of the left lower extremity History Interval history: Patient seen and examined medical records reviewed Patient is scheduled for left lower extremity CT angiogram tomorrow with possible revascularization Per vascular. Patient feels slightly better Vital signs noted Denies fever no nausea vomiting or abdominal pain Hospitalist Physical - Constitutional Vitals: Temp Pulse Resp BP Pulse Ox 98.6 F 84 18 129/77 94 11/13/18 17:16 11/13/18 17:16 11/13/18 17:16 11/13/18 17:16 11/13/18 17:16 General appearance: Present: no acute distress, well-nourished - EENT Eyes: Present: PERRL, EOM intact - Neck Neck: Present: supple, normal ROM - Respiratory Respiratory effort: normal Respiratory: bilateral: diminished, negative: rales, rhonchi, wheezing - Cardiovascular Rhythm: regular Heart Sounds: Present: S1 & S2 - Extremities Extremities: no ischemia, No edema - Abdominal General gastrointestinal: soft, non-tender, non-distended, normal bowel sounds - Integumentary Integumentary: Present: clear, warm - Psychiatric Psychiatric: appropriate mood/affect, cooperative - Neurologic Neurologic: moves all extremities Results - Labs CBC & Chem 7: 11/09/18 08:24 11/13/18 04:57 Labs: Laboratory Last Values WBC 6.2 K/mm3 (4.5-11.0) 11/09/18 08:24 RBC 3.68 M/mm3 (3.65-5.03) 11/09/18 08:24 Hgb 11.4 gm/dl (11.8-15.2) L 11/09/18 08:24 Hct 33.8 % (35.5-45.6) L 11/09/18 08:24 MCV 92 fl (84-94) 11/09/18 08:24 MCH 31 pg (28-32) 11/09/18 08:24 MCHC 34 % (32-34) 11/09/18 08:24 RDW 17.7 % (13.2-15.2) H 11/09/18 08:24 Plt Count 97 K/mm3 (140-440) L 11/09/18 08:24 Lymph % (Auto) 9.9 % (13.4-35.0) L 11/09/18 08:24 Larimer % (Auto) 8.7 % (0.0-7.3) H 11/09/18 08:24 Eos % (Auto) 0.5 % (0.0-4.3) 11/09/18 08:24 Baso % (Auto) 0.6 % (0.0-1.8) 11/09/18 08:24 Lymph # 0.6 K/mm3 (1.2-5.4) L 11/09/18 08:24 Larimer # 0.5 K/mm3 (0.0-0.8) 11/09/18 08:24 Eos # 0.0 K/mm3 (0.0-0.4) 11/09/18 08:24 Baso # 0.0 K/mm3 (0.0-0.1) 11/09/18 08:24 Seg Neutrophils % 80.3 % (40.0-70.0) H 11/09/18 08:24 Seg Neutrophils # 5.0 K/mm3 (1.8-7.7) 11/09/18 08:24 PT 15.7 Sec. (12.2-14.9) H 11/08/18 14:33 INR 1.28 (0.87-1.13) H 11/08/18 14:33 VBG pH 7.369 (7.320-7.420) 11/08/18 14:33 Sodium 134 mmol/L (137-145) L 11/13/18 04:57 Potassium 5.2 mmol/L (3.6-5.0) H 11/13/18 04:57 Chloride 89.6 mmol/L (98-107) L 11/13/18 04:57 Carbon Dioxide 29 mmol/L (22-30) 11/13/18 04:57 21 mmol/L 11/13/18 04:57 BUN 52 mg/dL (9-20) H 11/13/18 04:57 10.0 mg/dL (0.8-1.5) H 11/13/18 04:57 Estimated GFR 7 ml/min 11/13/18 04:57 5 % 11/13/18 04:57 Glucose 115 mg/dL (75-100) H 11/13/18 04:57 POC Glucose 113 (70-105) H 11/11/18 21:21 5.1 % (4-6) 11/08/18 14:33 Lactic Acid 0.70 mmol/L (0.7-2.0) 11/08/18 17:38 Calcium 9.0 mg/dL (8.4-10.2) 11/13/18 04:57 Phosphorus 4.00 mg/dL (2.5-4.5) 11/13/18 04:57 0.50 mg/dL (0.1-1.2) 11/08/18 14:33 AST 38 units/L (5-40) 11/08/18 14:33 ALT < 5 units/L (7-56) L 11/08/18 14:33 100 units/L (35-129) 11/08/18 14:33 9.0 g/dL (6.3-8.2) H 11/08/18 14:33 4.1 g/dL (3.9-5) 11/08/18 14:33 0.8 % 11/08/18 14:33 Random Vancomycin 16.0 ug/mL (0-40.0) 11/11/18 05:02 Active Medications - Current Medications Current Medications: Generic Name Dose Route Start Last Admin Trade Name Freq PRN Reason Stop Dose Admin Acetaminophen 650 mg 11/08/18 22:08 Tylenol PO Q4H PRN Pain MILD(1-3)/Fever >100.5/WEST Alprazolam 2 mg 11/08/18 22:06 11/12/18 22:41 Xanax PO 2 mg TID PRN Administration Anxiety Aspirin 325 mg 11/09/18 10:00 11/13/18 10:49 Aspirin PO 325 mg QDAY KWAME Administration Atorvastatin Calcium 40 mg 11/09/18 22:00 11/12/18 22:35 Lipitor PO 40 mg QHS KWAME Administration Carvedilol 3.125 mg 11/09/18 10:00 11/13/18 10:51 Coreg PO Not Given BID KWAME Clopidogrel Bisulfate 75 mg 11/09/18 10:00 11/13/18 10:49 Plavix PO 75 mg QDAY KWAME Administration Famotidine 10 mg 11/08/18 23:00 11/13/18 10:49 Pepcid PO 10 mg BID KWAME Administration Sodium Chloride 100 mls @ 999 mls/hr 11/08/18 18:14 Nacl 0.9% IV DWIGHT PRN Hypotension Vancomycin HCl 1 gm in 250 mls @ 167.007 mls/hr 11/11/18 18:00 11/12/18 02:55 Vancomycin/Ns 1 Gm/250 Ml IV Not Given [id number] KWAME Ertapenem 1 gm/ Sodium 50 mls @ 100 mls/hr 11/13/18 10:00 11/13/18 10:51 Chloride IV 100 mls/hr QDAY KWAME Administration Loperamide HCl 2 mg 11/08/18 22:06 Imodium PO Q2H PRN Diarrhea Methadone HCl 10 mg 11/09/18 10:00 11/13/18 10:52 Dolophine PO 10 mg DAILY KWAME Administration Midodrine 10 mg 11/11/18 09:53 11/13/18 18:21 Proamatine PO 10 mg TID@0600,1200,1800 KWAME Administration Multivitamins 1 each 11/09/18 10:00 11/13/18 10:49 Theragran Tab PO 1 each QDAY KWAME Administration Ondansetron HCl 4 mg 11/08/18 22:08 Zofran IV Q8H PRN Nausea And Vomiting Oxycodone/Acetaminophen 1 tab 11/08/18 22:06 11/09/18 08:10 Percocet 5/325 PO 1 tab Q4H PRN Administration Pain, Moderate (4-6) Pregabalin 25 mg 11/09/18 08:00 11/13/18 16:29 Lyrica PO 25 mg TID KWAME Administration Pregabalin 75 mg 11/09/18 08:00 11/13/18 16:29 Lyrica PO 75 mg TID KWAME Administration Promethazine HCl 25 mg 11/09/18 09:27 Phenergan PO Q4HR PRN N/V UNRELIEVED BY JESSICA Sevelamer Carbonate 4,000 mg 11/09/18 08:00 11/13/18 18:22 Renvela PO Not Given TIDWM KWAME Sodium Chloride 10 ml 11/09/18 10:00 11/13/18 10:50 Sodium Chloride Flush Syringe 10 Ml IV 10 ml BID KWAME Administration Sodium Chloride 10 ml 11/08/18 22:08 11/12/18 22:36 Sodium Chloride Flush Syringe 10 Ml IV 10 ml PRN PRN Administration LINE FLUSH Sodium Chloride 250 ml 11/10/18 13:00 11/10/18 13:10 Nacl 0.9% 250ml IV 250 ml DIRECT KWAME Administration Trazodone HCl 50 mg 11/09/18 10:00 11/13/18 11:04 Desyrel PO Not Given BID KWAME Zolpidem Tartrate 10 mg 11/08/18 22:06 11/09/18 22:01 Ambien PO 10 mg QHS PRN Administration Sleep
[2018-11-14] MEDS: PROAMATINE PO SCH ×3 (05:55→19:55)
[2018-11-14 06:25] LABS: Calcium 9.8 mg/dL (8.4-10.2)
--- NOTE | 2018-11-14 08:38 | Progress Note ---
Assessment and Plan ESRD on hemodialysis: -HD today for clearance and volume removal -Fluid restriction of 32 ounces per day -Renal diet -Obtain daily weights -Monitor I/O's -Assess dialysis needs daily S/P Transmetatarsal amputation, left 5th toe -Surgery done on 11/03/18 -Currently with left foot pain and fever -Surgeon consulted, scheduled for revascularization today Chronic Hypotension: -Midorine 10 mg TID -Monitor BP Subjective Date of service: 11/14/18 Principal diagnosis: ESRD on HD Interval history: was concerned when he is going to have the procedure done today Objective - Vital Signs Vital signs: Vital Signs - 12hr 11/13/18 11/13/18 11/13/18 21:14 21:26 22:00 Temperature 98.5 F Pulse Rate 80 Respiratory 18 18 Rate Respiratory 18 Rate [Left Foot ] Blood Pressure 120/77 O2 Sat by Pulse 90 99 Oximetry 11/14/18 05:27 Temperature 97.6 F Pulse Rate 93 H Respiratory 16 Rate Respiratory Rate [Left Foot ] Blood Pressure 155/78 O2 Sat by Pulse 100 Oximetry - General Appearance General appearance: well-developed, well-nourished, appears stated age EENT: ATNC, PERRL, mucous membranes moist Neck: no JVD, no carotid bruit Respiratory: Present: Clear to Ascultation. Absent: Rales, Ronchi Cardiology: regular, S1S2 Gastrointestinal: normoactive bowel sounds, no tenderness, no distended Integumentary: no rash, warm and dry Neurologic: no focal deficit, no asterixis, alert and oriented x3 Musculoskeletal: other (no edema in BLE) Psychiatric: mood/affect appropriate, cooperative - Lab 11/09/18 08:24 11/14/18 05:33 Most recent lab results Calcium 9.8 mg/dL (8.4-10.2) 11/14/18 05:33 Phosphorus 4.70 mg/dL (2.5-4.5) H 11/14/18 05:33 Medications & Allergies - Medications Allergies/Adverse Reactions: Allergies No Known Allergies Allergy (Verified 09/06/18 10:32) Home Medications: Home Medications Medication Instructions Recorded Confirmed Last Taken Type Phenergan TAB 25 tab PO PRN 07/21/18 11/08/18 11/07/18 History Varenicline Tartrate [Chantix] 1 mg PO DAILY 07/21/18 11/08/18 11/02/18 History Aspirin 325 mg PO QDAY #30 tablet 07/28/18 11/08/18 11/07/18 Rx Loperamide [Imodium] 2 mg PO Q2H PRN capsule 07/28/18 11/08/18 11/07/18 Rx Methadone [Dolophine] 10 mg PO DAILY #10 tablet 07/28/18 11/08/18 11/07/18 Rx Midodrine [Proamatine] 5 mg PO TID #90 tablet 07/28/18 11/08/18 11/07/18 Rx Multivitamin Tab [Multiple Vitamin 1 each PO QDAY #30 tablet 07/28/18 11/08/18 11/07/18 Rx TAB (Theragran)] Pregabalin [Lyrica] 100 mg PO TID #30 capsule 07/28/18 11/08/18 11/07/18 Rx Sevelamer Carbonate [Renvela] 4,000 mg PO TIDWM #30 tablet 07/28/18 11/08/18 11/07/18 Rx Zolpidem [Ambien] 10 mg PO QHS PRN #12 tablet 07/28/18 11/08/18 11/07/18 Rx ALPRAZolam [Xanax TAB] 2 mg PO TID PRN 10/20/18 11/08/18 11/07/18 History AtorvaSTATin [Lipitor] 40 mg PO QHS #30 tablet 10/21/18 11/08/18 11/07/18 Rx Carvedilol [Coreg] 3.125 mg PO BID tablet 10/21/18 11/08/18 11/07/18 Rx Clopidogrel [Plavix] 75 mg PO QDAY #30 tablet 10/21/18 11/08/18 11/07/18 Rx traZODone [Desyrel] 50 mg PO BID 10/31/18 11/08/18 11/07/18 History oxyCODONE /ACETAMINOPHEN [Percocet 1 tab PO Q4HR PRN #40 tab 11/03/18 11/08/18 11/07/18 Rx 5/325] Active Medications: Generic Name Dose Route Start Last Admin Trade Name Freq PRN Reason Stop Dose Admin Acetaminophen 650 mg 11/08/18 22:08 Tylenol PO Q4H PRN Pain MILD(1-3)/Fever >100.5/WEST Alprazolam 2 mg 11/08/18 22:06 11/12/18 22:41 Xanax PO 2 mg TID PRN Administration Anxiety Aspirin 325 mg 11/09/18 10:00 11/13/18 10:49 Aspirin PO 325 mg QDAY KWAME Administration Atorvastatin Calcium 40 mg 11/09/18 22:00 11/13/18 21:19 Lipitor PO 40 mg QHS KWAME Administration Carvedilol 3.125 mg 11/09/18 10:00 11/13/18 21:21 Coreg PO 3.125 mg BID KWAME Administration Clopidogrel Bisulfate 75 mg 11/09/18 10:00 11/13/18 10:49 Plavix PO 75 mg QDAY KWAME Administration Famotidine 10 mg 11/08/18 23:00 11/13/18 21:19 Pepcid PO 10 mg BID KWAME Administration Sodium Chloride 100 mls @ 999 mls/hr 11/08/18 18:14 Nacl 0.9% IV DWIGHT PRN Hypotension Vancomycin HCl 1 gm in 250 mls @ 167.007 mls/hr 11/11/18 18:00 11/12/18 02:55 Vancomycin/Ns 1 Gm/250 Ml IV Not Given [id number] KWAME Ertapenem 1 gm/ Sodium 50 mls @ 100 mls/hr 11/13/18 10:00 11/13/18 10:51 Chloride IV 100 mls/hr QDAY KWAME Administration Loperamide HCl 2 mg 11/08/18 22:06 Imodium PO Q2H PRN Diarrhea Methadone HCl 10 mg 11/09/18 10:00 11/13/18 10:52 Dolophine PO 10 mg DAILY KWAME Administration Midodrine 10 mg 11/11/18 09:53 11/14/18 05:55 Proamatine PO Not Given TID@0600,1200,1800 [facility] Multivitamins 1 each 11/09/18 10:00 11/13/18 10:49 Theragran Tab PO 1 each QDAY KWAME Administration Ondansetron HCl 4 mg 11/08/18 22:08 Zofran IV Q8H PRN Nausea And Vomiting Oxycodone/Acetaminophen 1 tab 11/08/18 22:06 11/09/18 08:10 Percocet 5/325 PO 1 tab Q4H PRN Administration Pain, Moderate (4-6) Pregabalin 25 mg 11/09/18 08:00 11/13/18 21:19 Lyrica PO 25 mg TID KWAME Administration Pregabalin 75 mg 11/09/18 08:00 11/13/18 21:19 Lyrica PO 75 mg TID KWAME Administration Promethazine HCl 25 mg 11/09/18 09:27 Phenergan PO Q4HR PRN N/V UNRELIEVED BY JESSICA Guelamer Carbonate 4,000 mg 11/09/18 08:00 11/13/18 18:22 Renvela PO Not Given TIDWM KWAME Sodium Chloride 10 ml 11/09/18 10:00 11/13/18 21:19 Sodium Chloride Flush Syringe 10 Ml IV 10 ml BID KWAME Administration Sodium Chloride 10 ml 11/08/18 22:08 11/12/18 22:36 Sodium Chloride Flush Syringe 10 Ml IV 10 ml PRN PRN Administration LINE FLUSH Sodium Chloride 250 ml 11/10/18 13:00 11/10/18 13:10 Nacl 0.9% 250ml IV 250 ml DIRECT KWAME Administration Trazodone HCl 50 mg 11/09/18 10:00 11/13/18 21:19 Desyrel PO 50 mg BID KWAME Administration Zolpidem Tartrate 10 mg 11/08/18 22:06 11/09/18 22:01 Ambien PO 10 mg QHS PRN Administration Sleep
[2018-11-14] MEDS: XANAX PO PRN (09:17)
--- NOTE | 2018-11-14 09:32 | Progress Note ---
Assessment and Plan Cultures: 11/08 BCx - ESBL Klebsiella 11/09 wound Cx - ESBL Klebsiella, Enterococcus A/P 53 yo M PMHx DM2, ESRD on HD, PVD, osteomyelitis of the L foot s/p partial 5th ray amputation on 11/03 admitted with new onset L foot pain. 1) wound infection - appears superficial at this time. Wound culture grew ESBL Klebsiella and Enterococcus. Discussed with Dr. Mcdonnell who doesn't believe thi s is a deeper infection. s/p debridement of necrotic skin, SQ muscle and tendon from left foot 11/09/18. s/p angiography of the right lower extremity today - Dr. Camarena following. 2) ESBL Klebsiella Bacteremia - Will need 2 weeks therapy. 3) Recent Hx of osteomyelitis - s/p partial 5th ray amputation; clean margins achieved by surgery. 4) PVD 5) ESRD on HD 6) DM2 Recs: -discontinue Ertapenem and Vancomycin -Switch to Meropenem 1 gm IV every 24 hours for total 2 weeks ending 11/22/18 -Will consult IR for tunneled PICC -Order changed and placed with case management -follow-up out patient wound care -follow up ID clinic in 2 weeks (sent to respiratory support technician) [facility] M: [phone] O:[phone] Subjective Date of service: 11/14/18 Principal diagnosis: ESRD on HD Interval history: Patient seen and examined in HD. No acute distress reported. No fevers. Objective - Exam Narrative Exam: Constitutional: awake, no acute distress. no acute distress Head, Ears, Nose: Normocephalic, atraumatic. External ears, nose normal Eyes: Conjunctivae/corneas clear. No icterus. No ptosis. Neck: Supple, no meningeal signs Oral: Poor dentition, moist mucous membranes Cardiovascular: S1, S2 normal. Normal rhythm Respiratory: Good air entry, clear to auscultation bilaterally GI: Soft, non-tender; bowel sounds normal. No peritoneal signs Musculoskeletal: No pedal edema, Skin: L lateral foot wound 4cm across with bloody drainage on bandage. Hem/Lymphatic: No palpable cervical or supraclavicular nodes. No lymphangitis Psych: no agitation Neurological: Moves all extremities, no focal defects - Constitutional Vitals: Vital Signs Temp Pulse Resp BP Pulse Ox 97.6 F 93 H 16 155/78 100 11/14/18 05:27 11/14/18 05:27 11/14/18 05:27 11/14/18 05:27 11/14/18 05:27 Temperature -Last 24 Hours Temperature 97.6 F Temperature 98.5 F Temperature 98.6 F Temperature 97.3 F - Labs CBC & Chem 7: 11/09/18 08:24 11/14/18 05:33 Labs: Abnormal lab results 11/14/18 Range/Units 05:33 Sodium 134 L (137-145) mmol/L Chloride 87.1 L (98-107) mmol/L BUN 64 H (9-20) mg/dL Creatinine 11.3 H (0.8-1.5) mg/dL Glucose 103 H (75-100) mg/dL Phosphorus 4.70 H (2.5-4.5) mg/dL
[2018-11-14] MEDS: RENVELA PO SCH ×3 (09:35→19:55)
[2018-11-14] MEDS: PEPCID PO SCH ×2 (09:46→21:09)
[2018-11-14] MEDS: LYRICA PO SCH ×6 (09:46→20:00)
[2018-11-14] MEDS: DOLOPHINE PO SCH (09:46)
[2018-11-14] MEDS: INVanz 1 GM in NACL 0.9% 50 ML IV SCH (09:46)
[2018-11-14] MEDS: SODIUM CHLORIDE FLUSH SYRINGE 10 ML IV SCH ×2 (09:47→21:10)
[2018-11-14] MEDS: DESYREL PO SCH ×2 (10:00→21:09)
[2018-11-14] MEDS: THERAGRAN Tab PO SCH (10:00)
[2018-11-14] MEDS: ASPIRIN PO SCH (10:00)
[2018-11-14] MEDS: COREG PO SCH ×2 (10:46→21:10)
[2018-11-14] MEDS ORDERED: VERSED ONE (11:06)
[2018-11-14] MEDS ORDERED: SUBLIMAZE ONE (11:06)
[2018-11-14] MEDS ORDERED: HEPARIN/NS 5000 UNIT/500ML(CATH LAB) 1,000 ML IR ONE (11:07)
[2018-11-14] MEDS ORDERED: HEPARIN 10,000 UNITS/10 ML ONE (11:08)
[2018-11-14] MEDS ORDERED: ANCEF/STERILE WATER 2 GM/20 ML 0 GM/0 ML SYRINGE IV ONE (11:33)
[2018-11-14] MEDS ORDERED: NACL 0.9% 500 ML 500 ML ONE (11:36)
[2018-11-14] MEDS: XYLOCAINE 2% INFILTRATI ONE ×2 (11:49→11:56)
[2018-11-14] MEDS ORDERED: NITRO-BID 2% TP ONE (12:24)
--- NOTE | 2018-11-14 12:31 | Operative Report ---
Operative Report Operative Report: EXAM: 1. Ultrasound guided access of the left common femoral vein 2. Fluoroscopic guided placement of a 4 Fr sheath in the left common femoral vein for sedation 3. Ultrasound guided access of the right common femoral artery 4. Angiography of the right lower extremity 5. Selection of the abdominal aorta with angiography 6. Angiography of the abdominal aorta 7. Third order selection of the left lower extremity with the destination vessel being the popliteal artery with angiography of the left lower extremity 8. Closure of the right common femoral artery with a 6 Fr proglide DATE: 11/14/18 SOLAR SYSTEM INSTALLER: CAROLA FELIZ MD INDICATION: Nonhealing ulceration requiring amputation of the left fifth digit with gangrenous changes of the left fourth digit with end-stage renal disease and monophasic flow in the left lower extremity who presents for angiography for further evaluation and possible intervention. MEDICATIONS: Please see nursing report for full details. DEVICES: None CONTRAST: Please see cardiac cath lab manager report for full details PROCEDURE: The risks, benefits, and alternatives were discussed with the patient; written informed consent was obtained. The groins were prepped and draped in a sterile fashion. Ultrasound was used to identify the right common femoral artery which was patent. Under direct ultrasound guidance, the right common femoral artery was accessed with a 21- gauge micropuncture needle. 0.018 inch wire was passed into the aorta. Needle was exchanged for transitional dilator. I was exchanged for 0.035 inch wire. Transitional dilator was exchanged for a 5 Cymro sheath. Digital subtraction angiography was performed demonstrating an appropriate puncture, above the bifurcation and below the inferior epigastric artery. The right external iliac artery, common femoral artery, proximal superficial femoral artery, and profunda femoral artery are patent. The abdominal aorta was selected and digital subtraction angiography demonstrated patency of the abdominal aorta, bilateral common iliac arteries, external iliac arteries, and internal iliac arteries. The left common femoral artery was selected and digital subtraction angiography was performed. The left superficial femoral artery and popliteal artery were selected and digital subtraction angiography was performed. Digital subtraction angiography demonstrated patency of the left common femoral artery, profunda femoral artery, superficial femoral artery, popliteal artery, tibioperoneal trunk, peroneal artery, and posterior tibial artery until the pedal vasculature is encountered at which point the plantar arteries become atretic. Anterior tibial artery is the dominant flow to the foot and is patent. The dorsalis pedis artery is patent along the proximal and midportion of the vessel and the distalmost portion of the vessel has a focal area of occlusion compatible with severe spasm or thrombosis associated with recent amputation. Even with this distal most area of distal dorsalis pedis occlusion, the patient should have adequate blood flow to heal. This is more likely an infectious issue than a vascular issue. All wires, catheters, and sheaths were retracted to the right external iliac artery. Sheath was exchanged for a 6 Cymro Pro-glide which was used to close the arteriotomy achieving near immediate hemostasis. Sterile dressing applied. Pressure bandage applied. Patient tolerated the procedure well. No immediate postprocedure complication. FINDINGS: Please see procedure note above. IMPRESSION: Successful third order selection of the left lower extremity with angiography of the left lower extremity and ultrasound-guided access and closure.
--- NOTE | 2018-11-14 13:00 | Post Operative Note ---
Date of procedure: 11/14/18 Pre-op diagnosis: ESRD with LLE nonhealing ulcer worsening Post-op diagnosis: same Findings: The aorta, bilateral MAKENNA, EIA, and IIA area patent. The Left TIPPING MACHINE OPERATOR, SFA, PFA, and popliteal artery are patent. The left proximal and mid tibial vessels are patent. The left posterior tibial artery is distally atretic without good reconstructable options. The left DP at the distal most vessels have are spasmed or thrombosed from recent amputation. Procedure: 1. Ultrasound guided access of the left common femoral vein 2. Fluoroscopic guided placement of a 4 Fr sheath in the left common femoral vein for sedation 3. Ultrasound guided access of the right common femoral artery 4. Angiography of the right lower extremity 5. Selection of the abdominal aorta with angiography 6. Angiography of the abdominal aorta 7. Third order selection of the left lower extremity with the destination vessel being the popliteal artery with angiography of the left lower extremity 8. Closure of the right common femoral artery with a 6 Fr proglide Anesthesia: local (w/ conscious sedation) Surgeon: CAROLA FELIZ Estimated blood loss: minimal Condition: stable Disposition: floor
[2018-11-14] MEDS ORDERED: BENADRYL IV PRN (15:08)
[2018-11-14] MEDS: NITRO-BID 2% TP SCH ×3 (17:14→20:00)
--- NOTE | 2018-11-14 19:00 | Progress Note ---
Assessment and Plan Assessment and plan: 53 yo M PMHx DM2, ESRD on HD, PVD, osteomyelitis of the L foot s/p partial 5th ray amputation on 11/03 admitted with new onset L foot pain. The pain began 5 days prior to admission in roughly the same area as the recent surgery. He notes some associated drainage at the site and surrounding redness. He notes some low grade fevers at home but denies sweats or chills. He notes missing dialysis on Wednesday and since then has complained of some orthopnea. He otherwise denies new symptoms. Patient was evaluated by surgery underwent incision and drainage inside and debridement of left foot hematoma Vascular evaluated the patient and scheduled for CT angiography and possible revascularization today --Peripheral Vascular disease; vascular following CTAngiography of the left lower extremity with possible revascularization today --ESBL bacteremia : Contact isolation IV antibiotics, ID following,change antibiotic to Ertapenem --ESBL wound cultures : Contact isolation IV antibiotics, supportive care is --Lt Foot hematoma:s/p incision and drainage Surgery following, continue current management --S/P TMA[transmetatarsal amputation] Infection, x-ray no osteomyelitis, continue IV antibiotics Follow vascular evaluation and recommendations --End Stage Renal disease on hemodialysis; Nephrology following, dialysis per schedule --Chronic hypotension; Closely monitor blood pressures, continue midodrine --DVT prophylaxis; Lovenox physical therapy occupational therapy Consults and recommendations noted Disposition; continue inpatient management f/u ID and vascular rec. History Interval history: Patient seen and examined this morning medical records reviewed Patient is scheduled for vascular procedure with possible revascularization Patient has no new complaints Vital signs noted Hospitalist Physical - Constitutional Vitals: Temp Pulse Resp BP Pulse Ox 97.8 F 94 H 18 107/47 100 11/14/18 14:50 11/14/18 16:45 11/14/18 14:50 11/14/18 16:45 11/14/18 05:27 General appearance: Present: no acute distress, well-nourished - EENT Eyes: Present: PERRL, EOM intact - Neck Neck: Present: supple, normal ROM - Respiratory Respiratory effort: normal Respiratory: negative: diminished, rales, rhonchi - Cardiovascular Rhythm: regular Heart Sounds: Present: S1 & S2 - Extremities Extremities: no ischemia, abnormal (left foot dressing in place) - Abdominal General gastrointestinal: soft, non-tender, non-distended, normal bowel sounds - Integumentary Integumentary: Present: clear, warm - Psychiatric Psychiatric: appropriate mood/affect, cooperative - Neurologic Neurologic: CNII-XII intact, moves all extremities Results - Labs CBC & Chem 7: 11/09/18 08:24 11/14/18 05:33 Labs: Laboratory Last Values WBC 6.2 K/mm3 (4.5-11.0) 11/09/18 08:24 RBC 3.68 M/mm3 (3.65-5.03) 11/09/18 08:24 Hgb 11.4 gm/dl (11.8-15.2) L 11/09/18 08:24 Hct 33.8 % (35.5-45.6) L 11/09/18 08:24 MCV 92 fl (84-94) 11/09/18 08:24 MCH 31 pg (28-32) 11/09/18 08:24 MCHC 34 % (32-34) 11/09/18 08:24 RDW 17.7 % (13.2-15.2) H 11/09/18 08:24 Plt Count 97 K/mm3 (140-440) L 11/09/18 08:24 Lymph % (Auto) 9.9 % (13.4-35.0) L 11/09/18 08:24 [place] % (Auto) 8.7 % (0.0-7.3) H 11/09/18 08:24 Eos % (Auto) 0.5 % (0.0-4.3) 11/09/18 08:24 Baso % (Auto) 0.6 % (0.0-1.8) 11/09/18 08:24 Lymph # 0.6 K/mm3 (1.2-5.4) L 11/09/18 08:24 [place] # 0.5 K/mm3 (0.0-0.8) 11/09/18 08:24 Eos # 0.0 K/mm3 (0.0-0.4) 11/09/18 08:24 Baso # 0.0 K/mm3 (0.0-0.1) 11/09/18 08:24 Seg Neutrophils % 80.3 % (40.0-70.0) H 11/09/18 08:24 Seg Neutrophils # 5.0 K/mm3 (1.8-7.7) 11/09/18 08:24 PT 15.7 Sec. (12.2-14.9) H 11/08/18 14:33 INR 1.28 (0.87-1.13) H 11/08/18 14:33 VBG pH 7.369 (7.320-7.420) 11/08/18 14:33 Sodium 134 mmol/L (137-145) L 11/14/18 05:33 Potassium 4.9 mmol/L (3.6-5.0) 11/14/18 05:33 Chloride 87.1 mmol/L (98-107) L 11/14/18 05:33 Carbon Dioxide 26 mmol/L (22-30) 11/14/18 05:33 26 mmol/L 11/14/18 05:33 BUN 64 mg/dL (9-20) H 11/14/18 05:33 11.3 mg/dL (0.8-1.5) H 11/14/18 05:33 Estimated GFR 6 ml/min 11/14/18 05:33 6 % 11/14/18 05:33 Glucose 103 mg/dL (75-100) H 11/14/18 05:33 POC Glucose 118 (70-105) H 11/14/18 18:30 5.1 % (4-6) 11/08/18 14:33 Lactic Acid 0.70 mmol/L (0.7-2.0) 11/08/18 17:38 Calcium 9.8 mg/dL (8.4-10.2) 11/14/18 05:33 Phosphorus 4.70 mg/dL (2.5-4.5) H 11/14/18 05:33 0.50 mg/dL (0.1-1.2) 11/08/18 14:33 AST 38 units/L (5-40) 11/08/18 14:33 ALT < 5 units/L (7-56) L 11/08/18 14:33 100 units/L (35-129) 11/08/18 14:33 9.0 g/dL (6.3-8.2) H 11/08/18 14:33 4.1 g/dL (3.9-5) 11/08/18 14:33 0.8 % 11/08/18 14:33 Random Vancomycin 16.0 ug/mL (0-40.0) 11/11/18 05:02 Active Medications - Current Medications Current Medications: Generic Name Dose Route Start Last Admin Trade Name Freq PRN Reason Stop Dose Admin Acetaminophen 650 mg 11/08/18 22:08 Tylenol PO Q4H PRN Pain MILD(1-3)/Fever >100.5/WEST Alprazolam 2 mg 11/08/18 22:06 11/14/18 09:17 Xanax PO 2 mg TID PRN Administration Anxiety Aspirin 325 mg 11/09/18 10:00 11/14/18 10:00 Aspirin PO Not Given QDAY [facility] Atorvastatin Calcium 40 mg 11/09/18 22:00 11/13/18 21:19 Lipitor PO 40 mg QHS KWAME Administration Carvedilol 3.125 mg 11/09/18 10:00 11/14/18 10:46 Coreg PO Not Given BID [facility] Clopidogrel Bisulfate 75 mg 11/09/18 10:00 11/13/18 10:49 Plavix PO 75 mg QDAY [facility] Administration Diphenhydramine HCl 25 mg 11/14/18 15:08 Benadryl IV Q8H PRN Itching Famotidine 10 mg 11/08/18 23:00 11/14/18 09:46 Pepcid PO 10 mg BID [facility] Administration Sodium Chloride 100 mls @ 999 mls/hr 11/08/18 18:14 Nacl 0.9% IV DWIGHT PRN Hypotension Meropenem 1,000 mg/ Sodium 100 mls @ 100 mls/hr 11/14/18 15:00 Chloride IV 11/22/18 23:59 Q24HR [facility] Loperamide HCl 2 mg 11/08/18 22:06 Imodium PO Q2H PRN Diarrhea Methadone HCl 10 mg 11/09/18 10:00 11/14/18 09:46 Dolophine PO 10 mg DAILY [facility] Administration Midodrine 10 mg 11/11/18 09:53 11/14/18 12:00 Proamatine PO Not Given TID@0600,1200,1800 [facility] Multivitamins 1 each 11/09/18 10:00 11/14/18 10:00 Theragran Tab PO Not Given QDAY [facility] Nitroglycerin 0.5 inch 11/14/18 13:00 11/14/18 17:14 Nitro-Bid 2% TP 11/14/18 21:01 0.5 inch Q4H KWAME Administration Protocol Ondansetron HCl 4 mg 11/08/18 22:08 Zofran IV Q8H PRN Nausea And Vomiting Oxycodone/Acetaminophen 1 tab 11/08/18 22:06 11/09/18 08:10 Percocet 5/325 PO 1 tab Q4H PRN Administration Pain, Moderate (4-6) Pentoxifylline 200 mg 11/14/18 13:00 Trental PO DAILY KWAME Pregabalin 25 mg 11/09/18 08:00 11/14/18 17:07 Lyrica PO Not Given TID KWAME Pregabalin 75 mg 11/09/18 08:00 11/14/18 17:07 Lyrica PO Not Given TID [facility] Promethazine HCl 25 mg 11/09/18 09:27 Phenergan PO Q4HR PRN N/V UNRELIEVED BY JESSICA Sevelamer Carbonate 4,000 mg 11/09/18 08:00 11/14/18 12:00 Renvela PO Not Given TIDWM K[facility]AME Sodium Chloride 10 ml 11/09/18 10:00 11/14/18 09:47 Sodium Chloride Flush Syringe 10 Ml IV 10 ml BID KWAME Administration Sodium Chloride 10 ml 11/08/18 22:08 11/12/18 22:36 Sodium Chloride Flush Syringe 10 Ml IV 10 ml PRN PRN Administration LINE FLUSH Sodium Chloride 250 ml 11/10/18 13:00 11/10/18 13:10 Nacl 0.9% 250ml IV 250 ml DIRECT KWAME Administration Trazodone HCl 50 mg 11/09/18 10:00 11/14/18 10:00 Desyrel PO Not Given BID [facility] Zolpidem Tartrate 10 mg 11/08/18 22:06 11/09/18 22:01 Ambien PO 10 mg QHS PRN Administration Sleep
[2018-11-14] MEDS: MERREM 1,000 MG in NACL 0.9% 100 ML IV SCH (19:55)
[2018-11-14] MEDS: PLAVIX PO SCH (20:09)
[2018-11-14] MEDS: TRENTAL PO SCH (20:09)
[2018-11-14] MEDS: AMBIEN PO PRN (21:09)
[2018-11-15] MEDS: PERCOCET 5/325 PO PRN (04:24)
[2018-11-15] MEDS: PROAMATINE PO SCH ×3 (05:30→17:46)
[2018-11-15 07:39] LABS: Basophils % (Auto) 0.4 % (0.0-1.8); Eosinophils # (Auto) 0.1 K/mm3 (0.0-0.4); Eosinophils % (Auto) 1.4 % (0.0-4.3); Hematocrit 34.8 % (35.5-45.6); Hemoglobin 11.7 gm/dl (11.8-15.2); Lymphocytes # (Auto) 1.1 K/mm3 (1.2-5.4); Lymphocytes % (Auto) 15.2 % (13.4-35.0); Mean Corpuscular HGB Conc 34 % (32-34); Mean Corpuscular Volume 92 fl (84-94); Monocytes # (Auto) 0.8 K/mm3 (0.0-0.8); Monocytes % (Auto) 10.7 % (0.0-7.3); Platelet Count 204 K/mm3 (140-440); Red Cell Distribution Width 17.4 % (13.2-15.2)
[2018-11-15 07:45] LABS: Calcium 9.9 mg/dL (8.4-10.2)
--- NOTE | 2018-11-15 09:32 | Progress Note ---
Assessment and Plan Cultures: 11/08 BCx - ESBL Klebsiella 11/09 wound Cx - ESBL Klebsiella, Enterococcus 11/11 BCx- no growth A/P 53 yo M PMHx DM2, ESRD on HD, PVD, osteomyelitis of the L foot s/p partial 5th ray amputation on 11/03 admitted with new onset L foot pain. 1) wound infection - Wound culture grew ESBL Klebsiella and Enterococcus. s/p Angiography of the right lower extremity 11/14/18. s/p Debridement today of left foot wound. Left 4th toe and soft tissue along lateral foot now gangrenous. The left 4th MTP joint is also exposed and is partially disarticulated. Dr. Mcdonnell to perform amputation of the left 4th toe and debridement of lateral foot on 11/17/18. Please send bone cultures. 2) ESBL Klebsiella Bacteremia - Will need 2 weeks of therapy. Order placed with case management. 3) Recent Hx of osteomyelitis - s/p partial 5th ray amputation; clean margins achieved by surgery. 4) PVD 5) ESRD on HD 6) DM2 Recs: -Continue Meropenem 1 gm IV every 24 hours for total 2 weeks ending 11/22/18 - IR consulted for tunneled PICC - OPAT orders placed with case management -follow-up out patient wound care -follow up ID clinic in 2 weeks (sent to [employer] worker) [facility] M: [phone] O:[phone] Subjective Date of service: 11/15/18 Principal diagnosis: ESRD on HD Interval history: Patient seen and examined in HD. No acute distress reported. No fevers. Objective - Exam Narrative Exam: Constitutional: awake, no acute distress. no acute distress Head, Ears, Nose: Normocephalic, atraumatic. External ears, nose normal Eyes: Conjunctivae/corneas clear. No icterus. No ptosis. Neck: Supple, no meningeal signs Oral: Poor dentition, moist mucous membranes Cardiovascular: S1, S2 normal. Normal rhythm Respiratory: Good air entry, clear to auscultation bilaterally GI: Soft, non-tender; bowel sounds normal. No peritoneal signs Musculoskeletal: No pedal edema, Skin: L lateral foot wound. + dressing, no drainage Hem/Lymphatic: No palpable cervical or supraclavicular nodes. No lymphangitis Psych: no agitation Neurological: Moves all extremities, no focal defects - Constitutional Vitals: Vital Signs Temp Pulse Resp BP Pulse Ox 97.8 F 82 18 93/55 97 11/15/18 05:23 11/15/18 05:23 11/15/18 05:23 11/15/18 05:23 11/15/18 05:23 Temperature -Last 24 Hours Temperature 97.8 F Temperature 99.6 F Temperature 98.2 F Temperature 97.8 F - Labs CBC & Chem 7: 11/15/18 06:48 11/15/18 06:48 Labs: Abnormal lab results 11/14/18 11/15/18 11/15/18 Range/Units 18:30 06:48 06:48 Hgb 11.7 L (11.8-15.2) gm/dl Hct 34.8 L (35.5-45.6) % RDW 17.4 H (13.2-15.2) % [place] % (Auto) 10.7 H (0.0-7.3) % Lymph # 1.1 L (1.2-5.4) K/mm3 Seg Neutrophils % 72.3 H (40.0-70.0) % Sodium 136 L (137-145) mmol/L Chloride 90.7 L (98-107) mmol/L BUN 45 H (9-20) mg/dL Creatinine 9.3 H (0.8-1.5) mg/dL Glucose 122 H (75-100) mg/dL POC Glucose 118 H (70-105) Phosphorus 4.90 H (2.5-4.5) mg/dL
--- NOTE | 2018-11-15 10:31 | Procedure Note ---
Date of procedure: 11/15/18 Pre-op diagnosis: Left foot wound with exposed necrotic muscle Post-op diagnosis: same Procedure: Debridement of left foot wound Description of procedure: Pt was supine on his bed. Left foot was prepped and draped. Necrotic SQ tissue and muscle was surgically, excisionally debrided with a curette. Bleeding was minimal and was controlled with pressure. Wound was dressed by his nurse. Final wound measurements were: 7.5 X 7.5 X 1.2 cm Pt's left 4th toe is now gangrenous as is some of the soft tissue along his lateral foot. The left 4th MTP joint is also exposed and is partially disarticulated. Pt has consented to amputation of the left 4th toe and debridement of his lateral foot. He has HD tomorrow. He is on the surgery schedule for , 11/17/18 at 12:00. Anesthesia: none Surgeon: YURIDIA STEWART Estimated blood loss: minimal Pathology: none Specimen disposition: discarded Condition: stable Disposition: no change
[2018-11-15] MEDS: MERREM 1,000 MG in NACL 0.9% 100 ML IV SCH (11:02)
[2018-11-15] MEDS: ASPIRIN PO SCH (11:03)
[2018-11-15] MEDS: PEPCID PO SCH ×2 (11:03→21:14)
[2018-11-15] MEDS: COREG PO SCH ×2 (11:03→21:15)
[2018-11-15] MEDS: THERAGRAN Tab PO SCH (11:03)
[2018-11-15] MEDS: PLAVIX PO SCH (11:04)
[2018-11-15] MEDS: TRENTAL PO SCH (11:04)
[2018-11-15] MEDS: SODIUM CHLORIDE FLUSH SYRINGE 10 ML IV SCH ×2 (11:04→21:15)
[2018-11-15] MEDS: DOLOPHINE PO SCH (11:04)
[2018-11-15] MEDS: LYRICA PO SCH ×6 (11:10→21:15)
[2018-11-15] MEDS: DESYREL PO SCH ×2 (11:11→21:14)
[2018-11-15] MEDS: RENVELA PO SCH ×3 (11:13→17:45)
--- NOTE | 2018-11-15 11:31 | Progress Note ---
Assessment and Plan ESRD on hemodialysis: -Hemodialysis tomorrow for UF and clearance. -Fluid restriction of 32 ounces per day -Renal diet -Obtain daily weights -Monitor I/O's -Assess dialysis needs daily Left foot pain: -S/P Transmetatarsal amputation, left 5th toe on 11/03/18 -S/P debridement of left foot wound today on 11/15/18 -Schedule for surgery for amputation of left 4th toe on 11/17/18 -On IV Merrem per ID -Surgeon onboard Chronic Hypotension: -On Midodrine -Monitor BP Subjective Date of service: 11/15/18 Principal diagnosis: ESRD on HD Interval history: Patient seen siting up in bed. Mother at bedside. Wound care at bedside. Scheduled for surgery on the . Objective - Vital Signs Vital signs: Vital Signs - 12hr 11/14/18 11/15/18 11/15/18 23:32 05:23 11:03 Temperature 99.6 F 97.8 F Pulse Rate 94 H 82 82 Respiratory 18 18 Rate Blood Pressure 97/52 93/55 126/75 O2 Sat by Pulse 95 97 Oximetry - General Appearance General appearance: well-developed, appears stated age, fatigue EENT: ATNC, PERRL, hearing intact, vision intact Neck: no JVD, supple Respiratory: Present: Decreased Breath Sounds Cardiology: S1S2 Gastrointestinal: normoactive bowel sounds Integumentary: ulcer, other (Left foot wound) Neurologic: alert and oriented x3 Musculoskeletal: joint swelling Psychiatric: mood/affect appropriate - Lab 11/15/18 06:48 11/15/18 06:48 Most recent lab results Calcium 9.9 mg/dL (8.4-10.2) 11/15/18 06:48 Phosphorus 4.90 mg/dL (2.5-4.5) H 11/15/18 06:48 Medications & Allergies - Medications Allergies/Adverse Reactions: Allergies No Known Allergies Allergy (Verified 09/06/18 10:32) Home Medications: Home Medications Medication Instructions Recorded Confirmed Last Taken Type Phenergan TAB 25 tab PO PRN 07/21/18 11/08/18 11/07/18 History Varenicline Tartrate [Chantix] 1 mg PO DAILY 07/21/18 11/08/18 11/02/18 History Aspirin 325 mg PO QDAY #30 tablet 0411/08/18 11/07/18 Rx Loperamide [Imodium] 2 mg PO Q2H PRN capsule 07/28/18 11/08/18 11/07/18 Rx Methadone [Dolophine] 10 mg PO DAILY #10 tablet 07/28/18 11/08/18 11/07/18 Rx Midodrine [Proamatine] 5 mg PO TID #90 tablet 07/28/18 11/08/18 11/07/18 Rx Multivitamin Tab [Multiple Vitamin 1 each PO QDAY #30 tablet 07/28/18 11/08/18 11/07/18 Rx TAB (Theragran)] Pregabalin [Lyrica] 100 mg PO TID #30 capsule 07/28/18 11/08/18 11/07/18 Rx Sevelamer Carbonate [Renvela] 4,000 mg PO TIDWM #30 tablet 07/28/18 11/08/18 11/07/18 Rx Zolpidem [Ambien] 10 mg PO QHS PRN #12 tablet 07/28/18 11/08/18 11/07/18 Rx ALPRAZolam [Xanax TAB] 2 mg PO TID PRN 10/20/18 11/08/18 11/07/18 History AtorvaSTATin [Lipitor] 40 mg PO QHS #30 tablet 10/21/18 11/08/18 11/07/18 Rx Carvedilol [Coreg] 3.125 mg PO BID tablet 10/21/18 11/08/18 11/07/18 Rx Clopidogrel [Plavix] 75 mg PO QDAY #30 tablet 10/21/18 11/08/18 11/07/18 Rx traZODone [Desyrel] 50 mg PO BID 10/31/18 11/08/18 11/07/18 History oxyCODONE /ACETAMINOPHEN [Percocet 1 tab PO Q4HR PRN #40 tab 11/03/18 11/08/18 11/07/18 Rx 5/325] Active Medications: Generic Name Dose Route Start Last Admin Trade Name Freq PRN Reason Stop Dose Admin Acetaminophen 650 mg 11/08/18 22:08 Tylenol PO Q4H PRN Pain MILD(1-3)/Fever >100.5/WEST Alprazolam 2 mg 11/08/18 22:06 08/19 09:17 Xanax PO 2 mg TID PRN Administration Anxiety Aspirin 325 mg 11/09/18 10:00 11/15/18 11:03 Aspirin PO 325 mg QDAY KWAME Administration Atorvastatin Calcium 40 mg 11/09/18 22:00 11/14/18 21:10 Lipitor PO 40 mg QHS KWAME Administration Carvedilol 3.125 mg 11/09/18 10:00 11/15/18 11:03 Coreg PO 3.125 mg BID KWAME Administration Clopidogrel Bisulfate 75 mg 11/09/18 10:00 11/15/18 11:04 Plavix PO 75 mg QDAY KWAME Administration Diphenhydramine HCl 25 mg 11/14/18 15:08 Benadryl IV Q8H PRN Itching Famotidine 10 mg 11/08/18 23:00 11/15/18 11:03 Pepcid PO 10 mg BID KWAME Administration Sodium Chloride 100 mls @ 999 mls/hr 11/08/18 18:14 Nacl 0.9% IV DWIGHT PRN Hypotension Meropenem 1,000 mg/ Sodium 100 mls @ 100 mls/hr 11/14/18 15:00 11/15/18 11:02 Chloride IV 11/22/18 23:59 100 mls/hr Q24HR KWAME Administration Loperamide HCl 2 mg 11/08/18 22:06 Imodium PO Q2H PRN Diarrhea Methadone HCl 10 mg 11/09/18 10:00 11/15/18 11:04 Dolophine PO 10 mg DAILY KWAME Administration Midodrine 10 mg 11/11/18 09:53 11/15/18 11:02 Proamatine PO 10 mg TID@0600,1200,1800 KWAME Administration Multivitamins 1 each 11/09/18 10:00 11/15/18 11:03 Theragran Tab PO 1 each QDAY KWAME Administration Ondansetron HCl 4 mg 11/08/18 22:08 Zofran IV Q8H PRN Nausea And Vomiting Oxycodone/Acetaminophen 1 tab 11/08/18 22:06 11/15/18 04:24 Percocet 5/325 PO 1 tab Q4H PRN Administration Pain, Moderate (4-6) Pentoxifylline 200 mg 11/14/18 13:00 11/15/18 11:04 Trental PO 200 mg DAILY KWAME Administration Pregabalin 25 mg 11/09/18 08:00 11/15/18 11:10 Lyrica PO 25 mg TID KWAME Administration Pregabalin 75 mg 11/09/18 08:00 11/15/18 11:11 Lyrica PO 75 mg TID KWAME Administration Promethazine HCl 25 mg 11/09/18 09:27 Phenergan PO Q4HR PRN N/V UNRELIEVED BY JESSICA [place] Carbonate 4,000 mg 11/09/18 08:00 11/15/18 11:13 Renvela PO Not Given TIDWM KWAME Sodium Chloride 10 ml 11/09/18 10:00 11/15/18 11:04 Sodium Chloride Flush Syringe 10 Ml IV 10 ml BID KWAME Administration Sodium Chloride 10 ml 11/08/18 22:08 11/12/18 22:36 Sodium Chloride Flush Syringe 10 Ml IV 10 ml PRN PRN Administration LINE FLUSH Sodium Chloride 250 ml 11/10/18 13:00 11/10/18 13:10 Nacl 0.9% 250ml IV 250 ml DIRECT KWAME Administration Trazodone HCl 50 mg 11/09/18 10:00 11/15/18 11:11 Desyrel PO 50 mg BID KWAME Administration Zolpidem Tartrate 10 mg 11/08/18 22:06 11/14/18 21:09 Ambien PO 10 mg QHS PRN Administration Sleep
[2018-11-15] MEDS: XANAX PO PRN ×2 (11:41→23:06)
--- NOTE | 2018-11-15 14:59 | Progress Note ---
Assessment and Plan /ESBL bacteremia : Contact isolation IV antibiotics with meropenem, ID following, /h/o Osteomyelitis of the L foot s/p partial 5th ray amputation on 11/03 with achievement of clean margin Presented with Lt Foot hematoma: s/p incision and drainage on 11/09, 11/10, 11/15 cont IV antibiotics, supportive care, ID following Surgery following, continue current management plan for amputation of left 4th toe with I and D on 11/17 /Right foot wound with positive ESBL wound cultures : Contact isolation, x-ray no osteomyelitis - cont iv abx/meropenem /Peripheral Vascular disease with non healing LLE ulcer; vascular following s/p CT Angiography of the left lower extremity with revascularization 11/14 /-End Stage Renal disease on hemodialysis; Nephrology following, dialysis per schedule plan for amputation with I and D on 11/17 /Chronic hypotension; Closely monitor blood pressures, continue midodrine /-DVT prophylaxis; Lovenox physical therapy occupational therapy Consults and recommendations noted Disposition; continue inpatient management f/u ID and vascular rec. Brief History 53 yo M PMHx DM2, ESRD on HD, PVD, osteomyelitis of the L foot s/p partial 5th ray amputation on 11/03 admitted with new onset L foot pain. The pain began 5 days prior to admission in roughly the same area as the recent surgery. He notes some associated drainage at the site and surrounding redness, some low grade fevers at home but denies sweats or chills. Patient was evaluated by surgery underwent incision and drainage inside and debridement of left foot hematoma on 11/10 and 11/09. Vascular evaluated the patient and s/p CT angiography and revascularization on 11/14, now planned for possible amputation and I and D on 11/17. Hospitalist Physical General appearance: Present: no acute distress, well-nourished - EENT Eyes: Present: PERRL, EOM intact - Neck Neck: Present: supple, normal ROM - Respiratory Respiratory effort: normal Respiratory: negative: diminished, rales, rhonchi - Cardiovascular Rhythm: regular Heart Sounds: Present: S1 & S2 - Extremities Extremities: no ischemia, abnormal (left foot dressing in place) - Abdominal General gastrointestinal: soft, non-tender, non-distended, normal bowel sounds - Integumentary Integumentary: Present: clear, warm - Psychiatric Psychiatric: appropriate mood/affect, cooperative - Neurologic Neurologic: CNII-XII intact, moves all extremities Subjective Date of service: 11/15/18 Principal diagnosis: ESRD on HD Interval history: Patient seen and examined. Medical records and medication list reviewed. No acute event overnight noted by the RN. Patient denies any chest pain or difficulty breathing. Patient is tolerating diet. Discussed plan of care at bedside with patient. Objective - Constitutional Vitals: Vital Signs - 12hr 11/15/18 11/15/18 05:23 11:03 Temperature 97.8 F Pulse Rate 82 82 Respiratory 18 Rate Blood Pressure 93/55 126/75 O2 Sat by Pulse 97 Oximetry - Labs CBC & Chem 7: 11/15/18 06:48 11/16/18 06:02 Labs: Abnormal lab results 11/14/18 11/15/18 11/15/18 Range/Units 18:30 06:48 06:48 Hgb 11.7 L (11.8-15.2) gm/dl Hct 34.8 L (35.5-45.6) % RDW 17.4 H (13.2-15.2) % [place] % (Auto) 10.7 H (0.0-7.3) % Lymph # 1.1 L (1.2-5.4) K/mm3 Seg Neutrophils % 72.3 H (40.0-70.0) % Sodium 136 L (137-145) mmol/L Chloride 90.7 L (98-107) mmol/L BUN 45 H (9-20) mg/dL Creatinine 9.3 H (0.8-1.5) mg/dL Glucose 122 H (75-100) mg/dL POC Glucose 118 H (70-105) Phosphorus 4.90 H (2.5-4.5) mg/dL
[2018-11-16] MEDS: PROAMATINE PO SCH ×3 (06:40→18:09)
[2018-11-16 09:20] LABS: Calcium 9.6 mg/dL (8.4-10.2)
[2018-11-16] MEDS: RENVELA PO SCH ×3 (09:41→18:08)
[2018-11-16] MEDS: LYRICA PO SCH ×6 (09:46→23:39)
[2018-11-16] MEDS ORDERED: HEPARIN 10,000 UNITS/10 ML ONE ×2 (09:49→11:28)
[2018-11-16] MEDS ORDERED: HEPARIN/NS 5000 UNIT/500ML(CATH LAB) 500 ML IR ONE (09:49)
[2018-11-16] MEDS ORDERED: NACL 0.9% 250ML 250 ML ONE (09:50)
[2018-11-16] MEDS: VERSED ONE ×2 (10:23→11:04)
[2018-11-16] MEDS: SUBLIMAZE ONE ×2 (10:23→11:04)
[2018-11-16] MEDS: XYLOCAINE 2% INFILTRATI ONE ×2 (10:24→10:59)
[2018-11-16] MEDS ORDERED: HEPARIN/NS 5000 UNIT/500ML(CATH LAB) 0 ML IR ONE (11:28)
[2018-11-16] MEDS ORDERED: CALAN ONE (11:28)
[2018-11-16] MEDS ORDERED: SUBLIMAZE ONE (11:29)
[2018-11-16] MEDS ORDERED: XYLOCAINE 2% INFILTRATI ONE (11:29)
[2018-11-16] MEDS ORDERED: VERSED ONE (11:29)
[2018-11-16] MEDS ORDERED: NITROGLYCERIN SYRINGE 0 ML ONE (11:29)
--- NOTE | 2018-11-16 11:30 | Event Note ---
Date: 11/16/18 The patient is not a candidate for long-term central venous access on either the right or the left. In 2013, the patient's right IJ was noted to be occluded. The patient was brought down for possible placement from the left today. His left IJ and EJ are occluded distally. The innominate is occluded. The subclavian is occluded distally. Following evaluation and attempt at placement in the left neck, evaluation of the patient's left arm was performed in an attempt to manipulate into a collateral were unsuccessful as the patient has no named veins in his left upper arm secondary to multiple prior dialysis accesses. The patient currently dialyzes through his right upper arm. The patient will either require antibiotic treatment during dialysis sessions or placement of a central venous catheter below the waist which he has previously refused.
--- NOTE | 2018-11-16 11:36 | Operative Report ---
Operative Report Operative Report: Exam: Attempted placement of central venous catheter for long-term antibiotic treatment, central and left upper extremity venogram Clinical indication: Patient with a history of osteomyelitis requiring IV access for long-term antibiotic care. Currently dialyzing through right upper arm AV fistula. Date: 11/16/2018 Procedure: Following an excellent ablation of the risks, benefits and alternatives; written informed consent was obtained. The patient was brought to the injury Suite and placed in supine position on the examination table. Initial evaluation of his neck demonstrated a patent internal jugular vein on the left proximally. The patient's left neck and chest wall were prepped and draped in the usual sterile fashion. 1% lidocaine was used for anesthesia. Under ultrasound guidance, the left internal jugular vein was cannulated with a 7 cm 21-gauge needle. 0.018 guidewire would not advance centrally. The needle was removed and the inner portion of a micro-sheath was placed. Contrast was injected which demonstrated opacification of the internal jugular vein proximally. There is occlusion distally with drainage centrally through collaterals. The innominate is not visualized either. This access was therefore abandoned. Ultrasound evaluation of the patient's left arm demonstrated what appeared to be a patent left brachial vein. The patient has had multiple prior fistula and grafts in the left arm. The patient's left upper arm was prepped and draped in the usual sterile fashion. 1% lidocaine was used for anesthesia. Under ultrasound guidance, the segment of brachial vein that appeared to be patent was cannulated with a 7 cm 21-gauge needle. A 0.018 guidewire would only advance a few centimeters. The needle was removed and the inner portion of a micro-sheath placed. Contrast was injected which demonstrates no name to blood vessels within the upper arm. There is only collateral flow. The left upper arm drains into a hibernating portion of the left subclavian vein which is occluded distally. The left innominate vein was not visualized. Chest wall collaterals are opacified. At this point, attempts to place left neck or left upper extremity central venous access were halted and the sheath and guidewire removed. Sterile dressings were then applied to all puncture sites. The patient tolerated the procedure well. There were no immediate postprocedure compensations. Conscious sedation was performed under the guidance of radiologic nursing. Continuous cardiopulmonary monitoring was utilized. Impression: Attempted placement of central venous catheter for long-term antibiotic treatment in the patient's left neck. Central venogram demonstrates occlusion of the patient's left internal jugular vein distally, occlusion of the left innominate vein and left subclavian vein. 2) attempted placement and venogram of the left upper extremity demonstrating a short segment of patent brachial vein which extends into collaterals. There are no name to vessels beyond this in the upper arm. The drainage centrally appears to extend through chest wall collaterals.
--- NOTE | 2018-11-16 11:40 | Progress Note ---
Assessment and Plan Cultures: 11/08 BCx - ESBL Klebsiella 11/09 wound Cx - ESBL Klebsiella, Enterococcus 11/11 BCx- no growth A/P 53 yo M PMHx DM2, ESRD on HD, PVD, osteomyelitis of the L foot s/p partial 5th ray amputation on 11/03 admitted with new onset L foot pain. 1) wound infection - Wound culture grew ESBL Klebsiella and Enterococcus. s/p Angiography of the right lower extremity 11/14/18. s/p Debridement today of left foot wound. Left 4th toe and soft tissue along lateral foot now gangrenous. The left 4th MTP joint is also exposed and is partially disarticulated. Dr. Mcdonnell to perform amputation of the left 4th toe and debridement of lateral foot on 11/17/18. Please send bone cultures. If ostemyelitis will have to extend antibiotic course. Per Dr. Teague's note: patient is not a candidate for long- term central venous access on either the right or the left. The patient will either require antibiotic treatment during dialysis sessions or placement of a central venous catheter below the waist which he has previously refused. 2) ESBL Klebsiella Bacteremia - Will need 2 weeks of therapy. Order placed with case management. 3) Recent Hx of osteomyelitis - s/p partial 5th ray amputation; clean margins achieved by surgery. 4) PVD 5) ESRD on HD 6) DM2 Recs: -Continue Meropenem 1 gm IV every 24 hours for total 2 weeks ending 11/22/18 - OPAT orders placed with case management -follow-up out patient wound care -follow up ID clinic in 2 weeks (sent to hollow ware maker) ROMINA [facility] M: [phone] O:[phone] Subjective Date of service: 11/16/18 Principal diagnosis: ESRD on HD Interval history: Patient seen and examined. Alsleep, easy to arouse. Reports no acute pain. + generalized weakness . No fevers. Objective - Exam Narrative Exam: Constitutional: Asleep. Easy to arouse. no acute distress Head, Ears, Nose: Normocephalic, atraumatic. External ears, nose normal Eyes: Conjunctivae/corneas clear. No icterus. No ptosis. Neck: Supple, no meningeal signs Oral: Poor dentition, moist mucous membranes Cardiovascular: S1, S2 normal. Normal rhythm Respiratory: Good air entry, clear to auscultation bilaterally GI: Soft, non-tender; bowel sounds normal. No peritoneal signs Musculoskeletal: No pedal edema, Skin: L lateral foot wound. + dressing, no drainage Hem/Lymphatic: No palpable cervical or supraclavicular nodes. No lymphangitis Psych: no agitation Neurological: Moves all extremities, no focal defects - Constitutional Vitals: Vital Signs Temp Pulse Resp BP Pulse Ox 97.5 F L 83 18 92/53 81 L 11/16/18 05:33 11/15/18 23:35 11/16/18 05:33 11/16/18 05:33 11/15/18 23:35 Temperature -Last 24 Hours Temperature 97.5 F Temperature 97.7 F Temperature 98.6 F - Labs CBC & Chem 7: 11/15/18 06:48 11/16/18 06:02 Labs: Abnormal lab results 11/16/18 Range/Units 06:02 Potassium 5.7 H (3.6-5.0) mmol/L Chloride 93.4 L (98-107) mmol/L BUN 63 H (9-20) mg/dL Creatinine 11.1 H (0.8-1.5) mg/dL
[2018-11-16] MEDS: PEPCID PO SCH ×2 (13:10→23:39)
[2018-11-16] MEDS: PLAVIX PO SCH (13:10)
[2018-11-16] MEDS: DOLOPHINE PO SCH (13:11)
[2018-11-16] MEDS: THERAGRAN Tab PO SCH (13:12)
[2018-11-16] MEDS: ASPIRIN PO SCH (13:12)
[2018-11-16] MEDS: DESYREL PO SCH ×2 (13:12→23:40)
[2018-11-16] MEDS: COREG PO SCH ×2 (13:13→23:40)
[2018-11-16] MEDS: TRENTAL PO SCH (13:13)
[2018-11-16] MEDS: SODIUM CHLORIDE FLUSH SYRINGE 10 ML IV SCH ×2 (13:19→23:40)
[2018-11-16] MEDS: MERREM 1,000 MG in NACL 0.9% 100 ML IV SCH (13:19)
[2018-11-16] MEDS: XANAX PO PRN (13:46)
--- NOTE | 2018-11-16 14:24 | Progress Note ---
Assessment and Plan ESRD on hemodialysis: -Hemodialysis today for UF and clearance. -Fluid restriction of 32 ounces per day -Renal diet -Obtain daily weights -Monitor I/O's -Assess dialysis needs daily Left foot pain: -S/P Transmetatarsal amputation, left 5th toe on 11/03/18 -S/P debridement of left foot wound today on 11/15/18 -Schedule for surgery for amputation of left 4th toe on 11/17/18 -On IV Merrem 1 gram every 24 hour per ID, to continue until 11/22/18 -Surgeon onboard Chronic Hypotension: -On Midodrine -Monitor BP Subjective Date of service: 11/16/18 Principal diagnosis: ESRD on HD Interval history: Patient seen lying in bed sleeping, easily aroused. No family at bedside. Seema iting HD today. Objective - Vital Signs Vital signs: Vital Signs - 12hr 11/16/18 11/16/18 11/16/18 05:33 12:11 13:13 Temperature 97.5 F L 97.4 F L Pulse Rate 56 L 65 Respiratory 18 20 Rate Blood Pressure 92/53 129/37 129/37 O2 Sat by Pulse 100 Oximetry - General Appearance General appearance: well-developed, appears stated age, fatigue EENT: ATNC, PERRL, hearing intact, vision intact Neck: no JVD, supple Respiratory: Present: Decreased Breath Sounds Cardiology: S1S2 Gastrointestinal: normoactive bowel sounds Integumentary: ulcer Neurologic: alert and oriented x3 Musculoskeletal: decreased ROM, other (Left foot wound) Psychiatric: cooperative - Lab 11/15/18 06:48 11/16/18 06:02 Most recent lab results Calcium 9.6 mg/dL (8.4-10.2) 11/16/18 06:02 Phosphorus 4.90 mg/dL (2.5-4.5) H 11/15/18 06:48 Medications & Allergies - Medications Allergies/Adverse Reactions: Allergies No Known Allergies Allergy (Verified 09/06/18 10:32) Home Medications: Home Medications Medication Instructions Recorded Confirmed Last Taken Type Phenergan TAB 25 tab PO PRN 07/21/18 11/08/18 11/07/18 History Varenicline Tartrate [Chantix] 1 mg PO DAILY 07/21/18 11/08/18 11/02/18 History Aspirin 325 mg PO QDAY #30 tablet 07/28/18 11/08/18 11/07/18 Rx Loperamide [Imodium] 2 mg PO Q2H PRN capsule 07/28/18 11/08/18 11/07/18 Rx Methadone [Dolophine] 10 mg PO DAILY #10 tablet 07/28/18 11/08/18 11/07/18 Rx Midodrine [Proamatine] 5 mg PO TID #90 tablet 07/28/18 11/08/18 11/07/18 Rx Multivitamin Tab [Multiple Vitamin 1 each PO QDAY #30 tablet 07/28/18 11/08/18 11/07/18 Rx TAB (Theragran)] Pregabalin [Lyrica] 100 mg PO TID #30 capsule 07/28/18 11/08/18 11/07/18 Rx Sevelamer Carbonate [Renvela] 4,000 mg PO TIDWM #30 tablet 07/28/18 11/08/18 11/07/18 Rx Zolpidem [Ambien] 10 mg PO QHS PRN #12 tablet 07/28/18 11/08/18 11/07/18 Rx ALPRAZolam [Xanax TAB] 2 mg PO TID PRN 10/20/18 11/08/18 11/07/18 History AtorvaSTATin [Lipitor] 40 mg PO QHS #30 tablet 10/21/18 11/08/18 11/07/18 Rx Carvedilol [Coreg] 3.125 mg PO BID tablet 10/21/18 11/08/18 11/07/18 Rx Clopidogrel [Plavix] 75 mg PO QDAY #30 tablet 10/21/18 11/08/18 11/07/18 Rx traZODone [Desyrel] 50 mg PO BID 10/31/18 11/08/18 11/07/18 History oxyCODONE /ACETAMINOPHEN [Percocet 1 tab PO Q4HR PRN #40 tab 11/03/18 11/08/18 11/07/18 Rx 5/325] Active Medications: Generic Name Dose Route Start Last Admin Trade Name Freq PRN Reason Stop Dose Admin Acetaminophen 650 mg 11/08/18 22:08 Tylenol PO Q4H PRN Pain MILD(1-3)/Fever >100.5/WEST Alprazolam 2 mg 11/08/18 22:06 11/16/18 13:46 Xanax PO 2 mg TID PRN Administration Anxiety Aspirin 325 mg 11/09/18 10:00 11/16/18 13:12 Aspirin PO 325 mg QDAY KWAME Administration Atorvastatin Calcium 40 mg 11/09/18 22:00 11/15/18 21:14 Lipitor PO 40 mg QHS KWAME Administration Carvedilol 3.125 mg 11/09/18 10:00 11/16/18 13:13 Coreg PO 3.125 mg BID KWAME Administration Clopidogrel Bisulfate 75 mg 11/09/18 10:00 11/16/18 13:10 Plavix PO 75 mg QDAY KWAME Administration Diphenhydramine HCl 25 mg 11/14/18 15:08 Benadryl IV Q8H PRN Itching Famotidine 10 mg 11/08/18 23:00 11/16/18 13:10 Pepcid PO 10 mg BID KWAME Administration Sodium Chloride 100 mls @ 999 mls/hr 11/08/18 18:14 Nacl 0.9% IV DWIGHT PRN Hypotension Meropenem 1,000 mg/ Sodium 100 mls @ 100 mls/hr 11/14/18 15:00 11/16/18 13:19 Chloride IV 11/22/18 23:59 100 mls/hr Q24HR KWAME Administration Loperamide HCl 2 mg 11/08/18 22:06 Imodium PO Q2H PRN Diarrhea Methadone HCl 10 mg 11/09/18 10:00 11/16/18 13:11 Dolophine PO 10 mg DAILY KWAME Administration Midodrine 10 mg 11/11/18 09:53 11/16/18 13:10 Proamatine PO 10 mg TID@0600,1200,1800 KWAME Administration Multivitamins 1 each 11/09/18 10:00 11/16/18 13:12 Theragran Tab PO 1 each QDAY KWAME Administration Ondansetron HCl 4 mg 11/08/18 22:08 Zofran IV Q8H PRN Nausea And Vomiting Oxycodone/Acetaminophen 1 tab 11/08/18 22:06 11/15/18 04:24 Percocet 5/325 PO 1 tab Q4H PRN Administration Pain, Moderate (4-6) Pentoxifylline 200 mg 11/14/18 13:00 11/16/18 13:13 Trental PO 200 mg DAILY KWAME Administration Pregabalin 25 mg 11/09/18 08:00 11/16/18 13:11 Lyrica PO 25 mg TID KWAME Administration Pregabalin 75 mg 11/09/18 08:00 11/16/18 13:11 Lyrica PO 75 mg TID KWAME Administration Promethazine HCl 25 mg 11/09/18 09:27 Phenergan PO Q4HR PRN N/V UNRELIEVED BY JESSICA Sevelamer Carbonate 4,000 mg 11/09/18 08:00 11/16/18 13:10 Renvela PO 4,000 mg TIDWM KWAME Administration Sodium Chloride 10 ml 11/09/18 10:00 11/16/18 13:19 Sodium Chloride Flush Syringe 10 Ml IV 10 ml BID KWAME Administration Sodium Chloride 10 ml 11/08/18 22:08 11/12/18 22:36 Sodium Chloride Flush Syringe 10 Ml IV 10 ml PRN PRN Administration LINE FLUSH Sodium Chloride 250 ml 11/10/18 13:00 11/10/18 13:10 Nacl 0.9% 250ml IV 250 ml DIRECT KWAME Administration Trazodone HCl 50 mg 11/09/18 10:00 11/16/18 13:12 Desyrel PO 50 mg BID KWAME Administration Zolpidem Tartrate 10 mg 11/08/18 22:06 11/14/18 21:09 Ambien PO 10 mg QHS PRN Administration Sleep
[2018-11-17] MEDS: PROAMATINE PO SCH ×4 (06:00→19:43)
--- NOTE | 2018-11-17 07:13 | Progress Note ---
Assessment and Plan /ESBL bacteremia : Contact isolation IV antibiotics with meropenem, ID following, Continue Meropenem 1 gm IV every 24 hours for total 2 weeks ending 11/22/18 if no sign of osteo found on LLE /h/o Osteomyelitis of the L foot s/p partial 5th ray amputation on 11/03 with achievement of clean margin Presented with Lt Foot hematoma: s/p incision and drainage on 11/09, 11/10, 11/15 cont IV antibiotics, supportive care, ID following Surgery following, continue current management plan for amputation of left 4th toe with I and D on 11/17 /Right foot wound with positive ESBL wound cultures : Contact isolation, x-ray n o osteomyelitis - cont iv abx/meropenem /Peripheral Vascular disease with non healing LLE ulcer; vascular following s/p CT Angiography of the left lower extremity with revascularization 11/14 /-End Stage Renal disease on hemodialysis; Nephrology following, dialysis per schedule plan for amputation with I and D on 11/17 /Chronic hypotension; Closely monitor blood pressures, continue midodrine /-DVT prophylaxis; Lovenox physical therapy occupational therapy Consults and recommendations noted Disposition; continue inpatient management f/u ID and vascular rec. Brief History 53 yo M PMHx DM2, ESRD on HD, PVD, osteomyelitis of the L foot s/p partial 5th ray amputation on 11/03 admitted with new onset L foot pain. The pain began 5 days prior to admission in roughly the same area as the recent surgery. He notes some associated drainage at the site and surrounding redness, some low grade fevers at home but denies sweats or chills. Patient was evaluated by surgery underwent incision and drainage inside and debridement of left foot hematoma on 11/10 and 11/09. Vascular evaluated the patient and s/p CT angiography and revascularization on 11/14, now planned for possible amputation and I and D on 11/17. Hospitalist Physical General appearance: Present: no acute distress, well-nourished - EENT Eyes: Present: PERRL, EOM intact - Neck Neck: Present: supple, normal ROM - Respiratory Respiratory effort: normal Respiratory: negative: diminished, rales, rhonchi - Cardiovascular Rhythm: regular Heart Sounds: Present: S1 & S2 - Extremities Extremities: no ischemia, abnormal (left foot dressing in place) - Abdominal General gastrointestinal: soft, non-tender, non-distended, normal bowel sounds - Integumentary Integumentary: Present: clear, warm - Psychiatric Psychiatric: appropriate mood/affect, cooperative - Neurologic Neurologic: CNII-XII intact, moves all extremities Subjective Date of service: 11/16/18 Principal diagnosis: ESRD on HD Interval history: Patient seen and examined. Medical records and medication list reviewed. No acute event overnight noted by the RN. Patient denies any chest pain or difficulty breathing. Patient is tolerating diet. Discussed plan of care at bedside with patient. Unable to place central line by IR Objective - Constitutional Vitals: Vital Signs - 12hr 11/16/18 11/16/18 11/16/18 19:15 19:30 19:45 Temperature Pulse Rate 81 81 83 Respiratory Rate Respiratory Rate [Left Foot ] Blood Pressure 105/51 96/51 94/50 O2 Sat by Pulse Oximetry 11/16/18 11/16/18 11/16/18 20:00 20:15 20:30 Temperature Pulse Rate 91 H 84 78 Respiratory Rate Respiratory Rate [Left Foot ] Blood Pressure 108/50 97/50 102/62 O2 Sat by Pulse Oximetry 11/16/18 11/16/18 11/16/18 20:45 21:00 21:15 Temperature Pulse Rate 78 79 82 Respiratory Rate Respiratory Rate [Left Foot ] Blood Pressure 99/57 106/62 101/61 O2 Sat by Pulse Oximetry 11/16/18 11/16/18 11/16/18 21:30 21:45 22:00 Temperature Pulse Rate 82 84 Respiratory Rate Respiratory 18 Rate [Left Foot ] Blood Pressure 101/57 100/58 O2 Sat by Pulse Oximetry 11/16/18 11/16/18 11/16/18 22:05 22:30 23:40 Temperature 97.6 F Pulse Rate 83 84 84 Respiratory 18 Rate Respiratory Rate [Left Foot ] Blood Pressure 106/61 106/54 106/54 O2 Sat by Pulse Oximetry 11/17/18 05:59 Temperature 98.3 F Pulse Rate 63 Respiratory 16 Rate Respiratory Rate [Left Foot ] Blood Pressure 94/61 O2 Sat by Pulse 72 L Oximetry - Labs CBC & Chem 7: 11/15/18 06:48 11/16/18 06:02 Labs: Abnormal lab results 11/16/18 Range/Units 06:02 Potassium 5.7 H (3.6-5.0) mmol/L Chloride 93.4 L (98-107) mmol/L BUN 63 H (9-20) mg/dL Creatinine 11.1 H (0.8-1.5) mg/dL
--- NOTE | 2018-11-17 09:20 | Progress Note ---
Assessment and Plan ESRD on hemodialysis: -no indication for HD today -Fluid restriction of 32 ounces per day -Renal diet -Obtain daily weights -Monitor I/O's -Assess dialysis needs daily Left foot pain: -S/P Transmetatarsal amputation, left 5th toe on 11/03/18 -S/P debridement of left foot wound today on 11/15/18 -Schedule for surgery for amputation of left 4th toe on 11/17/18 -On IV Merrem 1 gram every 24 hour per ID, to continue until 11/22/18 -Surgeon onboard Chronic Hypotension: -On Midodrine -Monitor BP Emiliano bull MD [phone] Subjective Date of service: 11/17/18 Principal diagnosis: ESRD on HD Interval history: tired and sleepy this AM Objective - Vital Signs Vital signs: Vital Signs - 12hr 11/16/18 11/16/18 11/16/18 21:30 21:45 22:00 Temperature Pulse Rate 82 84 Respiratory Rate Respiratory 18 Rate [Left Foot ] Blood Pressure 101/57 100/58 O2 Sat by Pulse Oximetry 11/16/18 11/16/18 11/16/18 22:05 22:30 23:40 Temperature 97.6 F Pulse Rate 83 84 84 Respiratory 18 Rate Respiratory Rate [Left Foot ] Blood Pressure 106/61 106/54 106/54 O2 Sat by Pulse Oximetry 11/17/18 05:59 Temperature 98.3 F Pulse Rate 63 Respiratory 16 Rate Respiratory Rate [Left Foot ] Blood Pressure 94/61 O2 Sat by Pulse 72 L Oximetry - General Appearance General appearance: well-developed, well-nourished, appears stated age EENT: ATNC, PERRL, mucous membranes moist Neck: no JVD, no carotid bruit Respiratory: Present: Clear to Ascultation. Absent: Rales, Ronchi Cardiology: regular, S1S2 Gastrointestinal: normoactive bowel sounds Integumentary: no rash, warm and dry Neurologic: no focal deficit, no asterixis, alert and oriented x3 Musculoskeletal: other (no edema in BLE) Psychiatric: mood/affect appropriate, cooperative - Lab 11/15/18 06:48 11/16/18 06:02 Most recent lab results Calcium 9.6 mg/dL (8.4-10.2) 11/16/18 06:02 Phosphorus 4.90 mg/dL (2.5-4.5) H 11/15/18 06:48 Medications & Allergies - Medications Allergies/Adverse Reactions: Allergies No Known Allergies Allergy (Verified 09/06/18 10:32) Home Medications: Home Medications Medication Instructions Recorded Confirmed Last Taken Type Phenergan TAB 25 tab PO PRN 07/21/18 11/08/18 11/07/18 History Varenicline Tartrate [Chantix] 1 mg PO DAILY 07/21/18 11/08/18 11/02/18 History Aspirin 325 mg PO QDAY #30 tablet 07/28/18 11/08/18 11/07/18 Rx Loperamide [Imodium] 2 mg PO Q2H PRN capsule 07/28/18 11/08/18 11/07/18 Rx Methadone [Dolophine] 10 mg PO DAILY #10 tablet 07/28/18 11/08/18 11/07/18 Rx Midodrine [Proamatine] 5 mg PO TID #90 tablet 07/28/18 11/08/18 11/07/18 Rx Multivitamin Tab [Multiple Vitamin 1 each PO QDAY #30 tablet 07/28/18 11/08/18 11/07/18 Rx TAB (Theragran)] Pregabalin [Lyrica] 100 mg PO TID #30 capsule 07/28/18 11/08/18 11/07/18 Rx Sevelamer Carbonate [Renvela] 4,000 mg PO TIDWM #30 tablet 07/28/18 11/08/18 11/07/18 Rx Zolpidem [Ambien] 10 mg PO QHS PRN #12 tablet 07/28/18 11/08/18 11/07/18 Rx ALPRAZolam [Xanax TAB] 2 mg PO TID PRN 10/20/18 11/08/18 11/07/18 History AtorvaSTATin [Lipitor] 40 mg PO QHS #30 tablet 10/21/18 11/08/18 11/07/18 Rx Carvedilol [Coreg] 3.125 mg PO BID tablet 10/21/18 11/08/18 11/07/18 Rx Clopidogrel [Plavix] 75 mg PO QDAY #30 tablet 10/21/18 11/08/18 11/07/18 Rx traZODone [Desyrel] 50 mg PO BID 10/31/18 11/08/18 11/07/18 History oxyCODONE /ACETAMINOPHEN [Percocet 1 tab PO Q4HR PRN #40 tab 11/03/18 11/08/18 11/07/18 Rx 5/325] Active Medications: Generic Name Dose Route Start Last Admin Trade Name Freq PRN Reason Stop Dose Admin Acetaminophen 650 mg 11/08/18 22:08 Tylenol PO Q4H PRN Pain MILD(1-3)/Fever >100.5/WEST Alprazolam 2 mg 11/08/18 22:06 11/16/18 13:46 Xanax PO 2 mg TID PRN Administration Anxiety Aspirin 325 mg 11/09/18 10:00 11/16/18 13:12 Aspirin PO 325 mg QDAY KWAME Administration Atorvastatin Calcium 40 mg 11/09/18 22:00 11/16/18 23:40 Lipitor PO 40 mg QHS KWAME Administration Carvedilol 3.125 mg 11/09/18 10:00 11/16/18 23:40 Coreg PO Not Given BID [facility] Clopidogrel Bisulfate 75 mg 11/09/18 10:00 11/16/18 13:10 Plavix PO 75 mg QDAY KWAME Administration Diphenhydramine HCl 25 mg 11/14/18 15:08 Benadryl IV Q8H PRN Itching Famotidine 10 mg 11/08/18 23:00 11/16/18 23:39 Pepcid PO 10 mg BID KWAME Administration Sodium Chloride 100 mls @ 999 mls/hr 11/08/18 18:14 Nacl 0.9% IV DWIGHT PRN Hypotension Meropenem 1,000 mg/ Sodium 100 mls @ 100 mls/hr 11/14/18 15:00 11/16/18 13:19 Chloride IV 11/22/18 23:59 100 mls/hr Q24HR KWAME Administration Loperamide HCl 2 mg 11/08/18 22:06 Imodium PO Q2H PRN Diarrhea Methadone HCl 10 mg 11/09/18 10:00 11/16/18 13:11 Dolophine PO 10 mg DAILY KWAME Administration Midodrine 10 mg 11/11/18 09:53 11/17/18 06:00 Proamatine PO Not Given TID@0600,1200,1800 [facility] Multivitamins 1 each 11/09/18 10:00 08/07/19 13:12 Theragran Tab PO 1 each QDAY KWAME Administration Ondansetron HCl 4 mg 11/08/18 22:08 Zofran IV Q8H PRN Nausea And Vomiting Oxycodone/Acetaminophen 1 tab 11/08/18 22:06 11/15/18 04:24 Percocet 5/325 PO 1 tab Q4H PRN Administration Pain, Moderate (4-6) Pentoxifylline 200 mg 11/14/18 13:00 11/16/18 13:13 Trental PO 200 mg DAILY KWAME Administration Pregabalin 25 mg 11/09/18 08:00 11/16/18 23:39 Lyrica PO 25 mg TID KWAME Administration Pregabalin 75 mg 11/09/18 08:00 11/16/18 23:39 Lyrica PO 75 mg TID KWAME Administration Promethazine HCl 25 mg 11/09/18 09:27 Phenergan PO Q4HR PRN N/V UNRELIEVED BY JESSICA Sevelamer Carbonate 4,000 mg 11/09/18 08:00 11/16/18 18:08 Renvela PO 4,000 mg TIDWM KWAME Administration Sodium Chloride 10 ml 11/09/18 10:00 11/16/18 23:40 Sodium Chloride Flush Syringe 10 Ml IV 10 ml BID KWAME Administration Sodium Chloride 10 ml 11/08/18 22:08 11/12/18 22:36 Sodium Chloride Flush Syringe 10 Ml IV 10 ml PRN PRN Administration LINE FLUSH Sodium Chloride 250 ml 11/10/18 13:00 11/10/18 13:10 Nacl 0.9% 250ml IV 250 ml DIRECT KWAME Administration Trazodone HCl 50 mg 11/09/18 10:00 11/16/18 23:40 Desyrel PO 50 mg BID KWAME Administration Zolpidem Tartrate 10 mg 11/08/18 22:06 11/14/18 21:09 Ambien PO 10 mg QHS PRN Administration Sleep
[2018-11-17] MEDS: DESYREL PO SCH ×2 (09:32→21:21)
[2018-11-17] MEDS: LYRICA PO SCH ×6 (09:32→21:21)
[2018-11-17] MEDS: DOLOPHINE PO SCH (09:32)
[2018-11-17] MEDS: COREG PO SCH ×2 (09:33→21:21)
--- NOTE | 2018-11-17 10:05 | Progress Note ---
Assessment and Plan Cultures: 11/08 BCx - ESBL Klebsiella 11/09 wound Cx - ESBL Klebsiella, Enterococcus 11/11 BCx- no growth A/P 53 yo M PMHx DM2, ESRD on HD, PVD, osteomyelitis of the L foot s/p partial 5th ray amputation on 11/03 admitted with new onset L foot pain. 1) wound infection - Wound culture grew ESBL Klebsiella and Enterococcus. s/p Angiography of the right lower extremity 11/14/18. s/p Debridement today of left foot wound. Left 4th toe and soft tissue along lateral foot now gangrenous. The left 4th MTP joint is also exposed and is partially disarticulated.TMA of left 4th toe and debridement of necrotic bone (left 5th metatarsal bone). Appreciate cultures that were sent. If ostemyelitis will have to extend antibiotic course. Per Dr. Teague's note: patient is not a candidate for long-term central venous access on either the right or the left. The patient will either require antibiotic treatment during dialysis sessions or placement of a central venous catheter below the waist which he has previously refused. 2) ESBL Klebsiella Bacteremia - Will need 2 weeks of therapy. Order placed with case management. 3) Recent Hx of osteomyelitis - s/p partial 5th ray amputation; clean margins achieved by surgery. 4) PVD 5) ESRD on HD 6) DM2 Recs: -Continue Meropenem 1 gm IV every 24 hours for total 2 weeks ending 11/22/18 - OPAT orders placed with case management -follow-up out patient wound care -follow-up OR cultures and pathology [facility] M: [id number] O:[phone] Subjective Date of service: 11/17/18 Principal diagnosis: ESRD on HD Interval history: Patient seen and examined. Laying in bed. Reports no acute pain. + generalized weakness . No fevers. Objective - Exam Narrative Exam: Constitutional: Awake. Alert. no acute distress Head, Ears, Nose: Normocephalic, atraumatic. External ears, nose normal Eyes: Conjunctivae/corneas clear. No icterus. No ptosis. Neck: Supple, no meningeal signs Oral: Poor dentition, moist mucous membranes Cardiovascular: S1, S2 normal. Normal rhythm Respiratory: Good air entry, clear to auscultation bilaterally GI: Soft, non-tender; bowel sounds normal. No peritoneal signs Musculoskeletal: No pedal edema, Skin:l eft 4th toe and debridement of necrotic bone (left 5th metatarsal bone). + Dressing, serosanguinous drainage Hem/Lymphatic: No palpable cervical or supraclavicular nodes. No lymphangitis Psych: no agitation Neurological: Moves all extremities, no focal defects - Constitutional Vitals: Vital Signs Temp Pulse Resp BP Pulse Ox 98.3 F 86 16 115/89 72 L 11/17/18 05:59 11/17/18 09:33 11/17/18 05:59 11/17/18 09:33 11/17/18 05:59 Temperature -Last 24 Hours Temperature 98.3 F Temperature 97.6 F Temperature 97.6 F Temperature 97.4 F Temperature 97.4 F - Labs CBC & Chem 7: 11/15/18 06:48 11/16/18 06:02
[2018-11-17] MEDS: RENVELA PO SCH ×3 (10:28→18:54)
[2018-11-17] MEDS: MERREM 1,000 MG in NACL 0.9% 100 ML IV SCH (10:53)
[2018-11-17] MEDS: SODIUM CHLORIDE FLUSH SYRINGE 10 ML IV SCH ×2 (10:54→21:31)
[2018-11-17] MEDS ORDERED: ZOFRAN IV PRN (11:36)
[2018-11-17] MEDS ORDERED: SUBLIMAZE IV PRN (11:36)
--- NOTE | 2018-11-17 11:38 | Anesthesia Day of Surgery ---
Anesthesia Day of Surgery - Day of Surgery Patient Examined: Yes Patient H&P Reviewed: Yes Patient is NPO: Yes Beta Blockers: Yes
[2018-11-17] MEDS: PEPCID PO SCH ×2 (11:39→21:20)
--- NOTE | 2018-11-17 11:49 | Anesthesia Consultation ---
Anesthesia Consult and Med Hx Date of service: 11/17/18 - Airway Anesthetic Teeth Evaluation: Good ROM Head & Neck: Adequate Mental/Hyoid Distance: Adequate Mallampati Class: Class II Intubation Access Assessment: Probably Good - Pre-Operative Health Status ASA Pre-Surgery Classification: ASA4 Proposed Anesthetic Plan: General, MAC - Pulmonary Hx Smoking: Yes Hx Sleep Apnea: No (REENA PRE SCREEN HIGH RISK) - Cardiovascular System Hx Hypertension: No Hx Coronary Artery Disease: Yes Hx Cardia Arrhythmia: No Hx Peripheral Vascular Disease: Yes - Central Nervous System Hx Neuromuscular Disorder: No Hx Seizures: No CVA: No Hx Back Pain: Yes (MRSA infection . CHRONIC PAIN) - Gastrointestinal Hx Ulcer: No Hx Gastroesophageal Reflux Disease: No - Endocrine Hx Renal Disease: Yes Hx End Stage Renal Disease: Yes (14yrs; Last HD yesterday) Hx Insulin Dependent Diabetes: No (B) Hx Non-Insulin Dependent Diabetes: (Hx of DM, no longer on metformin at doctor request) Hx Thyroid Disease: No - Hematic Hx Anemia: Yes - Other Systems Hx Cancer: No
[2018-11-17] MEDS ORDERED: NACL 0.9% 1000 ML 1,000 ML ONE (11:59)
[2018-11-17] MEDS ORDERED: PHENYLEPHRINE/NS Syringe 1,000 MCG/10 ML IV ONE (12:00)
[2018-11-17] MEDS ORDERED: NACL 0.9% 1000 ML 1,000 ML IV SCH (12:00)
[2018-11-17] MEDS ORDERED: VERSED ONE (12:12)
[2018-11-17] MEDS ORDERED: SUBLIMAZE ONE (12:12)
--- NOTE | 2018-11-17 13:08 | Progress Note ---
Assessment and Plan /ESBL bacteremia : Contact isolation IV antibiotics with meropenem, ID following, Continue Meropenem 1 gm IV every 24 hours for total 2 weeks ending 11/22/18 if no sign of osteo found on LLE /h/o Osteomyelitis of the L foot s/p partial 5th ray amputation on 11/03 with achievement of clean margin LEFTfoot wound with positive ESBL wound cultures : Contact isolation, x-ray no osteomyelitis Presented with Lt Foot hematoma: s/p incision and drainage on 11/09, 11/10, 11/15 cont IV antibiotics, supportive care, ID following Surgery following, continue current management plan for amputation of left 4th toe with I and D TODAY, if clear margin achieved then abx will need till 11/22/18 /Peripheral Vascular disease with non healing LLE ulcer; vascular following s/p CT Angiography of the left lower extremity with revascularization 11/14 /-End Stage Renal disease on hemodialysis; Nephrology following, dialysis per schedule plan for amputation with I and D on 11/17 /Chronic hypotension; Closely monitor blood pressures, continue midodrine /-DVT prophylaxis; Lovenox physical therapy occupational therapy Consults and recommendations noted Disposition; continue inpatient management f/u ID and vascular rec. Brief History 53 yo M PMHx DM2, ESRD on HD, PVD, osteomyelitis of the L foot s/p partial 5th ray amputation on 11/03 admitted with new onset L foot pain. The pain began 5 da ys prior to admission in roughly the same area as the recent surgery. He notes some associated drainage at the site and surrounding redness, some low grade fevers at home but denies sweats or chills. Patient was evaluated by surgery underwent incision and drainage inside and debridement of left foot hematoma on 11/10 and 11/09. Vascular evaluated the patient and s/p CT angiography and revascularization on 11/14, now planned for possible amputation and I and D on 11/17. Hospitalist Physical General appearance: Present: no acute distress, well-nourished - EENT Eyes: Present: PERRL, EOM intact - Neck Neck: Present: supple, normal ROM - Respiratory Respiratory effort: normal Respiratory: negative: diminished, rales, rhonchi - Cardiovascular Rhythm: regular Heart Sounds: Present: S1 & S2 - Extremities Extremities: no ischemia, abnormal (left foot dressing in place) - Abdominal General gastrointestinal: soft, non-tender, non-distended, normal bowel sounds - Integumentary Integumentary: Present: clear, warm - Psychiatric Psychiatric: appropriate mood/affect, cooperative - Neurologic Neurologic: CNII-XII intact, moves all extremities Subjective Date of service: 11/17/18 Principal diagnosis: ESRD on HD Interval history: Patient seen and examined. Medical records and medication list reviewed. No acute event overnight noted by the RN. Patient denies any chest pain or difficulty breathing. Patient is tolerating diet. Discussed plan of care at bedside with patient. Plan for left foot surgery today Objective - Constitutional Vitals: Vital Signs - 12hr 11/17/18 11/17/18 05:59 09:33 Temperature 98.3 F Pulse Rate 63 86 Respiratory 16 Rate Blood Pressure 94/61 115/89 O2 Sat by Pulse 72 L Oximetry - Labs CBC & Chem 7: 11/15/18 06:48 11/16/18 06:02 Labs: Abnormal lab results 11/17/18 Range/Units 12:17 POC Potassium 5.1 H (3.5-4.9) POC BUN 47 H (8-26) mg/dl
[2018-11-17] MEDS ORDERED: NACL 0.9% IR ONE (13:15)
--- NOTE | 2018-11-17 13:33 | Post Operative Note ---
Pre-op diagnosis: Gangrene of left 4th toe Post-op diagnosis: same Procedure: TMA of left 4th toe and debridement of necrotic bone (left 5th metatarsal bone) Anesthesia: other (LMA) Surgeon: YURIDIA STEWART Estimated blood loss: minimal Pathology: list (1) Left 4th toe and metatarsal head 2) Left 5th metatarsal) Specimen disposition: to lab Condition: stable Disposition: PACU
[2018-11-17] MEDS ORDERED: DIPRIVAN 10 MG/ML IV ONE (13:44)
[2018-11-17] MEDS: PLAVIX PO SCH (15:38)
[2018-11-17] MEDS: ASPIRIN PO SCH (15:38)
[2018-11-17] MEDS: TRENTAL PO SCH (15:39)
[2018-11-17] MEDS: THERAGRAN Tab PO SCH (15:40)
[2018-11-17] MEDS: PERCOCET 5/325 PO PRN (16:15)
[2018-11-17] MEDS: XANAX PO PRN (19:42)
[2018-11-18] MEDS: PERCOCET 5/325 PO PRN (05:51)
[2018-11-18] MEDS: XANAX PO PRN (05:51)
[2018-11-18] MEDS: PROAMATINE PO SCH ×3 (05:51→19:03)
[2018-11-18 07:53] LABS: Calcium 9.5 mg/dL (8.4-10.2)
[2018-11-18] MEDS: RENVELA PO SCH ×3 (09:10→19:03)
[2018-11-18] MEDS: LYRICA PO SCH ×6 (09:58→20:26)
[2018-11-18] MEDS: PEPCID PO SCH ×2 (09:59→22:28)
[2018-11-18] MEDS: PLAVIX PO SCH (09:59)
[2018-11-18] MEDS: ASPIRIN PO SCH (09:59)
[2018-11-18] MEDS: TRENTAL PO SCH (09:59)
[2018-11-18] MEDS: DESYREL PO SCH ×2 (09:59→22:28)
[2018-11-18] MEDS: THERAGRAN Tab PO SCH (10:00)
[2018-11-18] MEDS: SODIUM CHLORIDE FLUSH SYRINGE 10 ML IV SCH ×2 (10:00→22:00)
[2018-11-18] MEDS: DOLOPHINE PO SCH (10:00)
--- NOTE | 2018-11-18 10:52 | Progress Note ---
Assessment and Plan Cultures: 11/08 BCx - ESBL Klebsiella 11/09 wound Cx - ESBL Klebsiella, Enterococcus 11/11 BCx- no growth A/P 53 yo M PMHx DM2, ESRD on HD, PVD, osteomyelitis of the L foot s/p partial 5th ray amputation on 11/03 admitted with new onset L foot pain. 1) wound infection - Wound culture grew ESBL Klebsiella and Enterococcus. s/p Angiography of the right lower extremity 11/14/18. s/p Debridement today of left foot wound. Left 4th toe and soft tissue along lateral foot now gangrenous. The left 4th MTP joint is also exposed and is partially disarticulated.TMA of left 4th toe and debridement of necrotic bone (left 5th metatarsal bone). Appreciate cultures that were sent. If ostemyelitis will have to extend antibiotic course. Per Dr. Teague's note: patient is not a candidate for long-term central venous access on either the right or the left. The patient will either require antibiotic treatment during dialysis sessions or placement of a central venous catheter below the waist which he has previously refused. 2) ESBL Klebsiella Bacteremia - Will need 2 weeks of therapy. Order placed with case management. 3) Recent Hx of osteomyelitis - s/p partial 5th ray amputation; clean margins achieved by surgery. 4) PVD 5) ESRD on HD 6) DM2 Recs: -Continue Meropenem 1 gm IV every 24 hours for total 2 weeks ending 11/22/18 ( tentative stop date, If ostemyelitis will have to extend antibiotic course) -follow-up out patient wound care -follow-up OR cultures and pathology Dr. Mehta will round on Wednesday. Dr. Fontanez is taking call this weekend , please call for questions Carolina Kraft NP [facility] M: [phone] O:[phone] Subjective Date of service: 11/18/18 Principal diagnosis: ESRD on HD Interval history: Patient seen and examined. Laying in bed. Reports no acute pain. + generalized weakness . No fevers. Objective - Exam Narrative Exam: Constitutional: Awake. Alert. no acute distress Head, Ears, Nose: Normocephalic, atraumatic. External ears, nose normal Eyes: Conjunctivae/corneas clear. No icterus. No ptosis. Neck: Supple, no meningeal signs Oral: Poor dentition, moist mucous membranes Cardiovascular: S1, S2 normal. Normal rhythm Respiratory: Good air entry, clear to auscultation bilaterally GI: Soft, non-tender; bowel sounds normal. No peritoneal signs Musculoskeletal: No pedal edema, Skin:l eft 4th toe and debridement of necrotic bone (left 5th metatarsal bone). + Dressing, serosanguinous drainage Hem/Lymphatic: No palpable cervical or supraclavicular nodes. No lymphangitis Psych: no agitation Neurological: Moves all extremities, no focal defects - Constitutional Vitals: Vital Signs Temp Pulse Resp BP Pulse Ox 97.5 F L 94 H 16 95/59 100 11/18/18 05:01 11/18/18 05:01 11/18/18 08:15 11/18/18 05:01 11/18/18 05:01 Temperature -Last 24 Hours Temperature 97.5 F Temperature 97.7 F Temperature 98.4 F Temperature 97.3 F Temperature 98.0 F Temperature 97.8 F Temperature 97.4 F Temperature 97.4 F - Labs CBC & Chem 7: 11/15/18 06:48 11/18/18 07:11 Labs: Abnormal lab results 11/17/18 11/18/18 Range/Units 12:17 07:11 POC Potassium 5.1 H (3.5-4.9) Sodium 136 L (137-145) mmol/L Chloride 92.3 L (98-107) mmol/L POC BUN 47 H (8-26) mg/dl BUN 49 H (9-20) mg/dL Creatinine 10.4 H (0.8-1.5) mg/dL Glucose 142 H (75-100) mg/dL
--- NOTE | 2018-11-18 11:49 | Progress Note ---
Assessment and Plan ESRD on hemodialysis: -Hemodialysis today for UF and clearance. -Fluid restriction of 32 ounces per day -Renal diet -Obtain daily weights -Monitor I/O's -Assess dialysis needs daily Left foot pain: -S/P Transmetatarsal amputation, left 5th toe on 11/03/18 -S/P debridement of left foot wound today on 11/15/18 -S/P TMA of left 4th toe and debridement of necrotic bone (left 5th metatarsal b one) on 11/17/18 -On IV Merrem 1 gram every 24 hour, to continue until 11/22/18, duration may be longer if have osteomyelitis per ID -Surgeon onboard Chronic Hypotension: -On Midodrine -Monitor BP Subjective Date of service: 11/18/18 Principal diagnosis: ESRD on HD Interval history: Patient seen sitting up in bed. Voiced concerns regarding his care of left foot. Advised him to speak with his surgeon. Objective - Vital Signs Vital signs: Vital Signs - 12hr 11/18/18 11/18/18 11/18/18 00:29 00:30 00:33 Temperature 97.7 F Pulse Rate 197 H 71 Respiratory 18 Rate Blood Pressure 114/62 O2 Sat by Pulse 85 96 Oximetry 11/18/18 11/18/18 05:01 08:15 Temperature 97.5 F L Pulse Rate 94 H Respiratory 20 16 Rate Blood Pressure 95/59 O2 Sat by Pulse 100 Oximetry - General Appearance General appearance: well-developed, appears stated age, fatigue EENT: ATNC, PERRL, hearing intact, vision intact Neck: no JVD, supple Respiratory: Present: Decreased Breath Sounds Cardiology: S1S2 Gastrointestinal: normoactive bowel sounds Integumentary: warm and dry Neurologic: alert and oriented x3 Musculoskeletal: joint swelling, other (Left foot wrapped in bandge, not removed) - Lab 11/15/18 06:48 11/18/18 07:11 Most recent lab results Calcium 9.5 mg/dL (8.4-10.2) 11/18/18 07:11 Phosphorus 4.90 mg/dL (2.5-4.5) H 11/15/18 06:48 Medications & Allergies - Medications Allergies/Adverse Reactions: Allergies No Known Allergies Allergy (Verified 09/06/18 10:32) Home Medications: Home Medications Medication Instructions Recorded Confirmed Last Taken Type Phenergan TAB 25 tab PO PRN 04/11/19 07/30/19 07/29/19 History Varenicline Tartrate [Chantix] 1 mg PO DAILY 07/21/18 11/08/18 11/02/18 History Aspirin 325 mg PO QDAY #30 tablet 07/28/18 11/08/18 11/07/18 Rx Loperamide [Imodium] 2 mg PO Q2H PRN capsule 07/28/18 11/08/18 11/07/18 Rx Methadone [Dolophine] 10 mg PO DAILY #10 tablet 07/28/18 11/08/18 11/07/18 Rx Midodrine [Proamatine] 5 mg PO TID #90 tablet 07/28/18 11/08/18 11/07/18 Rx Multivitamin Tab [Multiple Vitamin 1 each PO QDAY #30 tablet 07/28/18 11/08/18 11/07/18 Rx TAB (Theragran)] Pregabalin [Lyrica] 100 mg PO TID #30 capsule 07/28/18 11/08/18 11/07/18 Rx Sevelamer Carbonate [Renvela] 4,000 mg PO TIDWM #30 tablet 07/28/18 11/08/18 11/07/18 Rx Zolpidem [Ambien] 10 mg PO QHS PRN #12 tablet 07/28/18 11/08/18 11/07/18 Rx ALPRAZolam [Xanax TAB] 2 mg PO TID PRN 10/20/18 11/08/18 11/07/18 History AtorvaSTATin [Lipitor] 40 mg PO QHS #30 tablet 10/21/18 11/08/18 11/07/18 Rx Carvedilol [Coreg] 3.125 mg PO BID tablet 10/21/18 11/08/18 11/07/18 Rx Clopidogrel [Plavix] 75 mg PO QDAY #30 tablet 10/21/18 11/08/18 11/07/18 Rx traZODone [Desyrel] 50 mg PO BID 10/31/18 11/08/18 11/07/18 History oxyCODONE /ACETAMINOPHEN [Percocet 1 tab PO Q4HR PRN #40 tab 11/03/18 11/08/18 11/07/18 Rx 5/325] Active Medications: Generic Name Dose Route Start Last Admin Trade Name Freq PRN Reason Stop Dose Admin Acetaminophen 650 mg 11/08/18 22:08 Tylenol PO Q4H PRN Pain MILD(1-3)/Fever >100.5/WEST Alprazolam 2 mg 11/08/18 22:06 11/18/18 05:51 Xanax PO 2 mg TID PRN Administration Anxiety Aspirin 325 mg 11/09/18 10:00 11/18/18 09:59 Aspirin PO 325 mg QDAY KWAME Administration Atorvastatin Calcium 40 mg 11/09/18 22:00 11/17/18 21:21 Lipitor PO 40 mg QHS KWAME Administration Carvedilol 3.125 mg 11/09/18 10:00 11/17/18 21:21 Coreg PO 3.125 mg BID KWAME Administration Clopidogrel Bisulfate 75 mg 11/09/18 10:00 11/18/18 09:59 Plavix PO 75 mg QDAY KWAME Administration Diphenhydramine HCl 25 mg 11/14/18 15:08 Benadryl IV Q8H PRN Itching Famotidine 10 mg 11/08/18 23:00 11/18/18 09:59 Pepcid PO 10 mg BID KWAME Administration Sodium Chloride 100 mls @ 999 mls/hr 11/08/18 18:14 Nacl 0.9% IV DWIGHT PRN Hypotension Meropenem 1,000 mg/ Sodium 100 mls @ 100 mls/hr 11/14/18 15:00 11/17/18 10:53 Chloride IV 11/22/18 23:59 100 mls/hr Q24HR KWAME Administration Sodium Chloride 1,000 mls @ 42 mls/hr 11/17/18 12:00 11/17/18 12:05 Nacl 0.9% 1000 Ml IV 42 mls/hr DIRECT KWAME Administration Loperamide HCl 2 mg 11/08/18 22:06 Imodium PO Q2H PRN Diarrhea Methadone HCl 10 mg 11/09/18 10:00 11/18/18 10:00 Dolophine PO 10 mg DAILY KWAME Administration Midodrine 10 mg 11/11/18 09:53 11/18/18 05:51 Proamatine PO 10 mg TID@0600,1200,1800 KWAME Administration Multivitamins 1 each 11/09/18 10:00 11/18/18 10:00 Theragran Tab PO 1 each QDAY KWAME Administration Ondansetron HCl 4 mg 11/08/18 22:08 Zofran IV Q8H PRN Nausea And Vomiting Oxycodone/Acetaminophen 1 tab 11/08/18 22:06 11/18/18 05:51 Percocet 5/325 PO 1 tab Q4H PRN Administration Pain, Moderate (4-6) Pentoxifylline 200 mg 11/14/18 13:00 11/18/18 09:59 Trental PO 200 mg DAILY KWAME Administration Pregabalin 25 mg 11/09/18 08:00 11/18/18 09:58 Lyrica PO 25 mg TID KWAME Administration Pregabalin 75 mg 11/09/18 08:00 11/18/18 09:59 Lyrica PO 75 mg TID KWAME Administration Promethazine HCl 25 mg 11/09/18 09:27 Phenergan PO Q4HR PRN N/V UNRELIEVED BY JESSICA Sevelamer Carbonate 4,000 mg 11/09/18 08:00 11/18/18 09:10 Renvela PO 4,000 mg TIDWM KWAME Administration Sodium Chloride 10 ml 11/09/18 10:00 11/18/18 10:00 Sodium Chloride Flush Syringe 10 Ml IV 10 ml BID KWAME Administration Sodium Chloride 10 ml 11/08/18 22:08 11/12/18 22:36 Sodium Chloride Flush Syringe 10 Ml IV 10 ml PRN PRN Administration LINE FLUSH Sodium Chloride 250 ml 11/10/18 13:00 11/10/18 13:10 Nacl 0.9% 250ml IV 250 ml DIRECT KWAME Administration Trazodone HCl 50 mg 11/09/18 10:00 11/18/18 09:59 Desyrel PO 50 mg BID KWAME Administration Zolpidem Tartrate 10 mg 11/08/18 22:06 11/14/18 21:09 Ambien PO 10 mg QHS PRN Administration Sleep
[2018-11-18] MEDS: COREG PO SCH ×2 (14:03→22:31)
--- NOTE | 2018-11-18 14:25 | Progress Note ---
Assessment and Plan /ESBL bacteremia : Contact isolation IV antibiotics with meropenem, ID following, Continue Meropenem 1 gm IV every 24 hours for total 2 weeks ending 11/22/18 if no sign of osteo found on LLE /h/o Osteomyelitis of the L foot s/p partial 5th ray amputation on 11/03 with achievement of clean margin LEFTfoot wound with positive ESBL wound cultures : Contact isolation, x-ray no osteomyelitis Presented with Lt Foot hematoma: s/p incision and drainage on 11/09, 11/10, 11/15 cont IV antibiotics, supportive care, ID following Surgery following, continue current management s/p amputation of left 4th toe with I and D 11/17, if clear margin achieved then abx will need till 11/22/18 f/u bone biopsy result, PT eval /Peripheral Vascular disease with non healing LLE ulcer; vascular following s/p CT Angiography of the left lower extremity with revascularization 11/14 /-End Stage Renal disease on hemodialysis; Nephrology following, dialysis per schedule plan for amputation with I and D on 11/17 /Chronic hypotension; Closely monitor blood pressures, continue midodrine /-DVT prophylaxis; Lovenox physical therapy occupational therapy Consults and recommendations noted Disposition; continue inpatient management f/u ID and vascular rec. Brief History 53 yo M PMHx DM2, ESRD on HD, PVD, osteomyelitis of the L foot s/p partial 5th ray amputation on 11/03 admitted with new onset L foot pain. The pain began 5 days prior to admission in roughly the same area as the recent surgery. He notes some associated drainage at the site and surrounding redness, some low grade fevers at home but denies sweats or chills. Patient was evaluated by surgery underwent incision and drainage inside and debridement of left foot hematoma on 11/10 and 11/09. Vascular evaluated the patient and s/p CT angiography and revascularization on 11/14, s/p amputation and I and D on 11/17. Hospitalist Physical General appearance: Present: no acute distress, well-nourished - EENT Eyes: Present: PERRL, EOM intact - Neck Neck: Present: supple, normal ROM - Respiratory Respiratory effort: normal Respiratory: negative: diminished, rales, rhonchi - Cardiovascular Rhythm: regular Heart Sounds: Present: S1 & S2 - Extremities Extremities: no ischemia, abnormal (left foot dressing in place) - Abdominal General gastrointestinal: soft, non-tender, non-distended, normal bowel sounds - Integumentary Integumentary: Present: clear, warm - Psychiatric Psychiatric: appropriate mood/affect, cooperative - Neurologic Neurologic: CNII-XII intact, moves all extremities Subjective Date of service: 11/18/18 Principal diagnosis: ESRD on HD Interval history: Patient seen and examined. Medical records and medication list reviewed. No acute event overnight noted by the RN. Patient denies any chest pain or difficulty breathing. Patient is tolerating diet. Discussed plan of care at bedside with patient. Objective - Constitutional Vitals: Vital Signs - 12hr 11/18/18 11/18/18 11/18/18 05:01 08:15 10:01 Temperature 97.5 F L Pulse Rate 94 H Respiratory 20 16 Rate Blood Pressure 95/59 135/86 O2 Sat by Pulse 100 Oximetry 11/18/18 11/18/18 12:19 14:03 Temperature 98.1 F Pulse Rate Respiratory 20 Rate Blood Pressure 92/64 92/64 O2 Sat by Pulse Oximetry - Labs CBC & Chem 7: 11/15/18 06:48 11/19/18 04:45 Labs: Abnormal lab results 11/18/18 Range/Units 07:11 Sodium 136 L (137-145) mmol/L Chloride 92.3 L (98-107) mmol/L BUN 49 H (9-20) mg/dL Creatinine 10.4 H (0.8-1.5) mg/dL Glucose 142 H (75-100) mg/dL
[2018-11-18] MEDS: MERREM 1,000 MG in NACL 0.9% 100 ML IV SCH (19:03)
[2018-11-19] MEDS: PROAMATINE PO SCH ×3 (05:40→17:26)
[2018-11-19 05:53] LABS: Calcium 9.7 mg/dL (8.4-10.2)
[2018-11-19] MEDS ORDERED: KIONEX PO ONE (11:00)
[2018-11-19] MEDS: DESYREL PO SCH ×2 (11:07→21:36)
[2018-11-19] MEDS: TRENTAL PO SCH (11:08)
[2018-11-19] MEDS: PEPCID PO SCH ×2 (11:09→21:34)
[2018-11-19] MEDS: ASPIRIN PO SCH (11:09)
[2018-11-19] MEDS: PERCOCET 5/325 PO PRN (11:09)
[2018-11-19] MEDS: RENVELA PO SCH ×3 (11:09→17:26)
[2018-11-19] MEDS: XANAX PO PRN ×2 (11:10→21:38)
[2018-11-19] MEDS: THERAGRAN Tab PO SCH (11:10)
[2018-11-19] MEDS: DOLOPHINE PO SCH (11:11)
[2018-11-19] MEDS: PLAVIX PO SCH (11:11)
[2018-11-19] MEDS: COREG PO SCH (11:11)
[2018-11-19] MEDS: MERREM 1,000 MG in NACL 0.9% 100 ML IV SCH (11:15)
[2018-11-19] MEDS: LYRICA PO SCH ×6 (11:25→21:35)
[2018-11-19] MEDS: SODIUM CHLORIDE FLUSH SYRINGE 10 ML IV SCH ×2 (11:25→23:08)
--- NOTE | 2018-11-19 16:02 | Progress Note ---
Assessment and Plan ESRD on hemodialysis: -s/p HD yesterday, no HD today. -Fluid restriction of 32 ounces per day -Renal diet -Obtain daily weights -Monitor I/O's -Assess dialysis needs daily Left foot pain: -S/P Transmetatarsal amputation, left 5th toe on 11/03/18 -S/P debridement of left foot wound today on 11/15/18 -S/P TMA of left 4th toe and debridement of necrotic bone (left 5th metatarsal bone) on 11/17/18 -On IV Merrem 1 gram every 24 hour, to continue until 11/22/18, duration may be longer if have osteomyelitis per ID -Surgeon onboard Chronic Hypotension: -On Midodrine -Monitor BP Subjective Date of service: 11/19/18 Principal diagnosis: ESRD on HD Interval history: Tolerated HD yesterday. Objective - Exam Narrative Exam: General appearance: well-developed, appears stated age, fatigue EENT: ATNC, PERRL, hearing intact, vision intact Neck: no JVD, supple Respiratory: Present: Decreased Breath Sounds Cardiology: S1S2 Gastrointestinal: normoactive bowel sounds Integumentary: warm and dry Neurologic: alert and oriented x3 Musculoskeletal: joint swelling, other (Left foot wrapped in bandge, not removed) - Vital Signs Vital signs: Vital Signs - 12hr 11/19/18 11/19/18 11/19/18 06:39 06:42 06:45 Temperature 98.6 F Pulse Rate 93 H Respiratory 19 Rate Blood Pressure 79/34 80/45 86/47 O2 Sat by Pulse 93 Oximetry 11/19/18 12:18 Temperature 98.4 F Pulse Rate 82 Respiratory 22 Rate Blood Pressure 87/46 O2 Sat by Pulse 92 Oximetry - Lab 11/15/18 06:48 11/19/18 04:45 Most recent lab results Calcium 9.7 mg/dL (8.4-10.2) 11/19/18 04:45 Phosphorus 4.90 mg/dL (2.5-4.5) H 11/15/18 06:48 Medications & Allergies - Medications Allergies/Adverse Reactions: Allergies No Known Allergies Allergy (Verified 09/06/18 10:32) Home Medications: Home Medications Medication Instructions Recorded Confirmed Last Taken Type Phenergan TAB 25 tab PO PRN 07/21/18 11/08/18 11/07/18 History Varenicline Tartrate [Chantix] 1 mg PO DAILY 07/21/18 11/08/18 11/02/18 History Aspirin 325 mg PO QDAY #30 tablet 07/28/18 11/08/18 11/07/18 Rx Loperamide [Imodium] 2 mg PO Q2H PRN capsule 07/28/18 11/08/18 11/07/18 Rx Methadone [Dolophine] 10 mg PO DAILY #10 tablet 07/28/18 11/08/18 11/07/18 Rx Midodrine [Proamatine] 5 mg PO TID #90 tablet 07/28/18 11/08/18 11/07/18 Rx Multivitamin Tab [Multiple Vitamin 1 each PO QDAY #30 tablet 07/28/18 11/08/18 11/07/18 Rx TAB (Theragran)] Pregabalin [Lyrica] 100 mg PO TID #30 capsule 07/28/18 11/08/18 11/07/18 Rx Sevelamer Carbonate [Renvela] 4,000 mg PO TIDWM #30 tablet 07/28/18 11/08/18 11/07/18 Rx Zolpidem [Ambien] 10 mg PO QHS PRN #12 tablet 07/28/18 11/08/18 11/07/18 Rx ALPRAZolam [Xanax TAB] 2 mg PO TID PRN 10/20/18 11/08/18 11/07/18 History AtorvaSTATin [Lipitor] 40 mg PO QHS #30 tablet 10/21/18 11/08/18 11/07/18 Rx Carvedilol [Coreg] 3.125 mg PO BID tablet 10/21/18 11/08/18 11/07/18 Rx Clopidogrel [Plavix] 75 mg PO QDAY #30 tablet 10/21/18 11/08/18 11/07/18 Rx traZODone [Desyrel] 50 mg PO BID 10/31/18 11/08/18 11/07/18 History oxyCODONE /ACETAMINOPHEN [Percocet 1 tab PO Q4HR PRN #40 tab 11/03/18 11/08/18 11/07/18 Rx 5/325] Active Medications: Generic Name Dose Route Start Last Admin Trade Name Freq PRN Reason Stop Dose Admin Acetaminophen 650 mg 11/08/18 22:08 Tylenol PO Q4H PRN Pain MILD(1-3)/Fever >100.5/WEST Alprazolam 2 mg 11/08/18 22:06 11/19/18 11:10 Xanax PO 2 mg TID PRN Administration Anxiety Aspirin 325 mg 11/09/18 10:00 11/19/18 11:09 Aspirin PO 325 mg QDAY KWAME Administration Atorvastatin Calcium 40 mg 11/09/18 22:00 11/18/18 22:28 Lipitor PO 40 mg QHS KWAME Administration Carvedilol 3.125 mg 11/09/18 10:00 11/19/18 11:11 Coreg PO 3.125 mg BID KWAME Administration Clopidogrel Bisulfate 75 mg 11/09/18 10:00 11/19/18 11:11 Plavix PO 75 mg QDAY KWAME Administration Diphenhydramine HCl 25 mg 11/14/18 15:08 Benadryl IV Q8H PRN Itching Famotidine 10 mg 11/08/18 23:00 11/19/18 11:09 Pepcid PO 10 mg BID KWAME Administration Sodium Chloride 100 mls @ 999 mls/hr 11/08/18 18:14 Nacl 0.9% IV DWIGHT PRN Hypotension Meropenem 1,000 mg/ Sodium 100 mls @ 100 mls/hr 11/14/18 15:00 11/19/18 11:15 Chloride IV 11/22/18 23:59 100 mls/hr Q24HR KWAME Administration Sodium Chloride 1,000 mls @ 42 mls/hr 11/17/18 12:00 11/17/18 12:05 Nacl 0.9% 1000 Ml IV 42 mls/hr DIRECT KWAME Administration Loperamide HCl 2 mg 11/08/18 22:06 Imodium PO Q2H PRN Diarrhea Methadone HCl 10 mg 11/09/18 10:00 11/19/18 11:11 Dolophine PO 10 mg DAILY KWAME Administration Midodrine 10 mg 11/11/18 09:53 11/19/18 11:09 Proamatine PO 10 mg TID@0600,1200,1800 KWAME Administration Multivitamins 1 each 11/09/18 10:00 11/19/18 11:10 Theragran Tab PO 1 each QDAY KWAME Administration Ondansetron HCl 4 mg 11/08/18 22:08 Zofran IV Q8H PRN Nausea And Vomiting Oxycodone/Acetaminophen 1 tab 11/08/18 22:06 11/19/18 11:09 Percocet 5/325 PO 1 tab Q4H PRN Administration Pain, Moderate (4-6) Pentoxifylline 200 mg 11/14/18 13:00 11/19/18 11:08 Trental PO 200 mg DAILY KWAME Administration Pregabalin 25 mg 11/09/18 08:00 11/19/18 13:41 Lyrica PO 25 mg TID KWAME Administration Pregabalin 75 mg 11/09/18 08:00 11/19/18 13:42 Lyrica PO 75 mg TID KWAME Administration Promethazine HCl 25 mg 11/09/18 09:27 Phenergan PO Q4HR PRN N/V UNRELIEVED BY JESSICA Sevelamer Carbonate 4,000 mg 11/09/18 08:00 11/19/18 13:41 Renvela PO 4,000 mg TIDWM KWAME Administration Sodium Chloride 10 ml 11/09/18 10:00 11/19/18 11:25 Sodium Chloride Flush Syringe 10 Ml IV 10 ml BID KWAME Administration Sodium Chloride 10 ml 11/08/18 22:08 11/12/18 22:36 Sodium Chloride Flush Syringe 10 Ml IV 10 ml PRN PRN Administration LINE FLUSH Sodium Chloride 250 ml 11/10/18 13:00 11/10/18 13:10 Nacl 0.9% 250ml IV 250 ml DIRECT KWAME Administration Trazodone HCl 50 mg 11/09/18 10:00 11/19/18 11:07 Desyrel PO 50 mg BID KWAME Administration Zolpidem Tartrate 10 mg 11/08/18 22:06 11/14/18 21:09 Ambien PO 10 mg QHS PRN Administration Sleep
--- NOTE | 2018-11-19 17:39 | Progress Note ---
Assessment and Plan /ESBL bacteremia : Contact isolation IV antibiotics with meropenem, ID following, Continue Meropenem 1 gm IV every 24 hours for total 2 weeks ending 11/22/18 if no sign of osteo found on LLE /h/o Osteomyelitis of the L foot s/p partial 5th ray amputation on 11/03 with achievement of clean margin LEFTfoot wound with positive ESBL wound cultures : Contact isolation, x-ray no osteomyelitis Presented with Lt Foot hematoma: s/p incision and drainage on 11/09, 11/10, 11/15 cont IV antibiotics, supportive care, ID following Surgery following, continue current management s/p amputation of left 4th toe with I and D 11/17, if clear margin achieved then abx will need till 11/22/18 f/u bone biopsy result, PT eval /Peripheral Vascular disease with non healing LLE ulcer; vascular following s/p CT Angiography of the left lower extremity with revascularization 11/14 /-End Stage Renal disease on hemodialysis; Nephrology following, dialysis per schedule plan for amputation with I and D on 11/17 /Chronic hypotension; Closely monitor blood pressures, continue midodrine /-DVT prophylaxis; Lovenox physical therapy occupational therapy Consults and recommendations noted Disposition; continue inpatient management f/u ID and vascular rec. Pending PT eval, bone biopsy Brief History 53 yo M PMHx DM2, ESRD on HD, PVD, osteomyelitis of the L foot s/p partial 5th ray amputation on 11/03 admitted with new onset L foot pain. The pain began 5 days prior to admission in roughly the same area as the recent surgery. He notes some associated drainage at the site and surrounding redness, some low grade fevers at home but denies sweats or chills. Patient was evaluated by surgery underwent incision and drainage inside and debridement of left foot hematoma on 11/10 and 11/09. Vascular evaluated the patient and s/p CT angiography and revascularization on 11/14, s/p amputation and I and D on 11/17. Hospitalist Physical General appearance: Present: no acute distress, well-nourished - EENT Eyes: Present: PERRL, EOM intact - Neck Neck: Present: supple, normal ROM - Respiratory Respiratory effort: normal Respiratory: negative: diminished, rales, rhonchi - Cardiovascular Rhythm: regular Heart Sounds: Present: S1 & S2 - Extremities Extremities: no ischemia, abnormal (left foot dressing in place) - Abdominal General gastrointestinal: soft, non-tender, non-distended, normal bowel sounds - Integumentary Integumentary: Present: clear, warm - Psychiatric Psychiatric: appropriate mood/affect, cooperative - Neurologic Neurologic: CNII-XII intact, moves all extremities Subjective Date of service: 11/19/18 Principal diagnosis: ESRD on HD Interval history: Patient seen and examined. Medical records and medication list reviewed. No acute event overnight noted by the RN. Patient denies any chest pain or difficulty breathing. Patient is tolerating diet. Discussed plan of care at bedside with patient. PT eval pending Objective - Constitutional Vitals: Vital Signs - 12hr 11/19/18 11/19/18 11/19/18 06:39 06:42 06:45 Temperature 98.6 F Pulse Rate 93 H Respiratory 19 Rate Blood Pressure 79/34 80/45 86/47 O2 Sat by Pulse 93 Oximetry 11/19/18 12:18 Temperature 98.4 F Pulse Rate 82 Respiratory 22 Rate Blood Pressure 87/46 O2 Sat by Pulse 92 Oximetry - Labs CBC & Chem 7: 11/15/18 06:48 11/19/18 17:45 Labs: Abnormal lab results 11/19/18 Range/Units 04:45 Sodium 136 L (137-145) mmol/L Potassium 5.2 H (3.6-5.0) mmol/L Chloride 91.3 L (98-107) mmol/L BUN 35 H (9-20) mg/dL Creatinine 8.4 H (0.8-1.5) mg/dL
[2018-11-19] MEDS ORDERED: ZOFRAN IV PRN (22:13)
[2018-11-20] MEDS: COREG PO SCH ×3 (01:10→22:40)
[2018-11-20] MEDS: DESYREL PO SCH ×2 (03:56→11:22)
[2018-11-20] MEDS: PROAMATINE PO SCH ×3 (05:23→17:54)
[2018-11-20] MEDS: RENVELA PO SCH ×3 (08:16→17:54)
[2018-11-20] MEDS: PERCOCET 5/325 PO PRN ×2 (08:17→13:57)
[2018-11-20] MEDS: LYRICA PO SCH ×6 (08:17→22:40)
--- NOTE | 2018-11-20 09:31 | Progress Note ---
Assessment and Plan /ESBL bacteremia : Contact isolation IV antibiotics with meropenem, ID following, Continue Meropenem 1 gm IV every 24 hours for total 2 weeks ending 11/22/18 if no sign of osteo found on LLE /h/o Osteomyelitis of the L foot s/p partial 5th ray amputation on 11/03 with achievement of clean margin LEFTfoot wound with positive ESBL wound cultures : Contact isolation, x-ray no osteomyelitis Presented with Lt Foot hematoma: s/p incision and drainage on 11/09, 11/10, 11/15 cont IV antibiotics, supportive care, ID following Surgery following, continue current management s/p amputation of left 4th toe with I and D 11/17, if clear margin achieved then abx will need till 11/22/18 f/u bone biopsy result, PT eval /Peripheral Vascular disease with non healing LLE ulcer; vascular following s/p CT Angiography of the left lower extremity with revascularization 11/14 /-End Stage Renal disease on hemodialysis; Nephrology following, dialysis per schedule /Chronic hypotension; Closely monitor blood pressures, continue midodrine /-DVT prophylaxis; Lovenox physical therapy occupational therapy Consults and recommendations noted Disposition; continue inpatient management f/u ID and vascular rec. Pending bone biopsy, PT RECOMMENDED ANGEL Brief History 53 yo M PMHx DM2, ESRD on HD, PVD, osteomyelitis of the L foot s/p partial 5th ray amputation on 11/03 admitted with new onset L foot pain. The pain began 5 days prior to admission in roughly the same area as the recent surgery. He notes some associated drainage at the site and surrounding redness, some low grade fevers at home but denies sweats or chills. Patient was evaluated by surgery underwent incision and drainage inside and debridement of left foot hematoma on 11/10 and 11/09. Vascular evaluated the patient and s/p CT angiography and revascularization on 11/14, s/p amputation and I and D on 11/17. Hospitalist Physical General appearance: Present: no acute distress, well-nourished - EENT Eyes: Present: PERRL, EOM intact - Neck Neck: Present: supple, normal ROM - Respiratory Respiratory effort: normal Respiratory: negative: diminished, rales, rhonchi - Cardiovascular Rhythm: regular Heart Sounds: Present: S1 & S2 - Extremities Extremities: no ischemia, abnormal (left foot dressing in place) - Abdominal General gastrointestinal: soft, non-tender, non-distended, normal bowel sounds - Integumentary Integumentary: Present: clear, warm - Psychiatric Psychiatric: appropriate mood/affect, cooperative - Neurologic Neurologic: CNII-XII intact, moves all extremities Subjective Date of service: 11/20/18 Principal diagnosis: ESRD on HD Interval history: Patient seen and examined. Medical records and medication list reviewed. No acute event overnight noted by the RN. Patient denies any chest pain or difficulty breathing. Patient is tolerating diet. Discussed plan of care at bedside with patient. PT RECOMMENDED ANGEL Objective - Constitutional Vitals: Vital Signs - 12hr 11/19/18 11/20/18 11/20/18 23:51 01:10 03:22 Temperature 97.6 F Pulse Rate 88 88 83 Respiratory 17 18 Rate Blood Pressure 87/46 87/46 Blood Pressure 93/52 [Left] O2 Sat by Pulse 96 Oximetry 11/20/18 05:54 Temperature 97.7 F Pulse Rate 85 Respiratory 19 Rate Blood Pressure 88/55 Blood Pressure [Left] O2 Sat by Pulse 99 Oximetry - Labs CBC & Chem 7: 11/15/18 06:48 11/21/18 09:09
[2018-11-20] MEDS: PEPCID PO SCH ×2 (11:21→22:39)
[2018-11-20] MEDS: TRENTAL PO SCH (11:21)
[2018-11-20] MEDS: DOLOPHINE PO SCH (11:22)
[2018-11-20] MEDS: THERAGRAN Tab PO SCH (11:22)
[2018-11-20] MEDS: ASPIRIN PO SCH (11:22)
[2018-11-20] MEDS: PLAVIX PO SCH (11:22)
[2018-11-20] MEDS: SODIUM CHLORIDE FLUSH SYRINGE 10 ML IV SCH (11:23)
[2018-11-20] MEDS: MERREM 1,000 MG in NACL 0.9% 100 ML IV SCH (11:24)
--- NOTE | 2018-11-20 15:09 | Progress Note ---
Assessment and Plan ESRD on hemodialysis: -s/p HD Wednesday, no HD today. -Fluid restriction of 32 ounces per day -Renal diet -Obtain daily weights -Monitor I/O's -Assess dialysis needs daily Left foot pain: -S/P Transmetatarsal amputation, left 5th toe on 11/03/18 -S/P debridement of left foot wound today on 11/15/18 -S/P TMA of left 4th toe and debridement of necrotic bone (left 5th metatarsal bone) on 11/17/18 -On IV Merrem 1 gram every 24 hour, to continue until 11/22/18, duration may be longer if have osteomyelitis per ID -Surgeon onboard Chronic Hypotension: -On Midodrine -Monitor BP Subjective Date of service: 11/20/18 Principal diagnosis: ESRD on HD Interval history: Tolerated HD Wednesday Objective - Exam Narrative Exam: General appearance: well-developed, appears stated age, fatigue EENT: ATNC, PERRL, hearing intact, vision intact Neck: no JVD, supple Respiratory: Present: Decreased Breath Sounds Cardiology: S1S2 Gastrointestinal: normoactive bowel sounds Integumentary: warm and dry Neurologic: alert and oriented x3 Musculoskeletal: joint swelling, other (Left foot wrapped in bandge, not removed) - Vital Signs Vital signs: Vital Signs - 12hr 11/20/18 11/20/18 11/20/18 03:22 05:54 12:08 Temperature 97.7 F 97.5 F L Pulse Rate 83 85 105 H Respiratory 18 19 20 Rate Blood Pressure 88/55 100/55 Blood Pressure 93/52 [Left] O2 Sat by Pulse 99 93 Oximetry - Lab 11/15/18 06:48 11/20/18 01:32 Most recent lab results Calcium 10.0 mg/dL (8.4-10.2) 11/20/18 01:32 Phosphorus 4.90 mg/dL (2.5-4.5) H 11/15/18 06:48 Medications & Allergies - Medications Allergies/Adverse Reactions: Allergies No Known Allergies Allergy (Verified 09/06/18 10:32) Home Medications: Home Medications Medication Instructions Recorded Confirmed Last Taken Type Phenergan TAB 25 tab PO PRN 07/21/18 11/08/18 11/07/18 History Varenicline Tartrate [Chantix] 1 mg PO DAILY 07/21/18 11/08/18 11/02/18 History Aspirin 325 mg PO QDAY #30 tablet 07/28/18 11/08/18 11/07/18 Rx Loperamide [Imodium] 2 mg PO Q2H PRN capsule 07/28/18 11/08/18 11/07/18 Rx Methadone [Dolophine] 10 mg PO DAILY #10 tablet 07/28/18 11/08/18 11/07/18 Rx Midodrine [Proamatine] 5 mg PO TID #90 tablet 07/28/18 11/08/18 11/07/18 Rx Multivitamin Tab [Multiple Vitamin 1 each PO QDAY #30 tablet 07/28/18 11/08/18 11/07/18 Rx TAB (Theragran)] Pregabalin [Lyrica] 100 mg PO TID #30 capsule 07/28/18 11/08/18 11/07/18 Rx Sevelamer Carbonate [Renvela] 4,000 mg PO TIDWM #30 tablet 07/28/18 11/08/18 11/07/18 Rx Zolpidem [Ambien] 10 mg PO QHS PRN #12 tablet 07/28/18 11/08/18 11/07/18 Rx ALPRAZolam [Xanax TAB] 2 mg PO TID PRN 10/20/18 11/08/18 11/07/18 History AtorvaSTATin [Lipitor] 40 mg PO QHS #30 tablet 10/21/18 11/08/18 11/07/18 Rx Carvedilol [Coreg] 3.125 mg PO BID tablet 10/21/18 11/08/18 11/07/18 Rx Clopidogrel [Plavix] 75 mg PO QDAY #30 tablet 10/21/18 11/08/18 11/07/18 Rx traZODone [Desyrel] 50 mg PO BID 10/31/18 11/08/18 11/07/18 History oxyCODONE /ACETAMINOPHEN [Percocet 1 tab PO Q4HR PRN #40 tab 11/03/18 11/08/18 11/07/18 Rx 5/325] Active Medications: Generic Name Dose Route Start Last Admin Trade Name Freq PRN Reason Stop Dose Admin Acetaminophen 650 mg 11/08/18 22:08 Tylenol PO Q4H PRN Pain MILD(1-3)/Fever >100.5/WEST Alprazolam 2 mg 11/08/18 22:06 11/19/18 21:38 Xanax PO 2 mg TID PRN Administration Anxiety Aspirin 325 mg 11/09/18 10:00 11/20/18 11:22 Aspirin PO 325 mg QDAY KWAME Administration Atorvastatin Calcium 40 mg 11/09/18 22:00 11/19/18 21:34 Lipitor PO 40 mg QHS KWAME Administration Carvedilol 3.125 mg 11/09/18 10:00 11/20/18 11:21 Coreg PO 3.125 mg BID KWAME Administration Clopidogrel Bisulfate 75 mg 11/09/18 10:00 11/20/18 11:22 Plavix PO 75 mg QDAY KWAME Administration Diphenhydramine HCl 25 mg 11/14/18 15:08 Benadryl IV Q8H PRN Itching Famotidine 10 mg 11/08/18 23:00 11/20/18 11:21 Pepcid PO 10 mg BID KWAME Administration Sodium Chloride 100 mls @ 999 mls/hr 11/08/18 18:14 Nacl 0.9% IV DWIGHT PRN Hypotension Meropenem 1,000 mg/ Sodium 100 mls @ 100 mls/hr 11/14/18 15:00 11/20/18 11:24 Chloride IV 11/22/18 23:59 100 mls/hr Q24HR KWAME Administration Sodium Chloride 1,000 mls @ 42 mls/hr 11/17/18 12:00 11/17/18 12:05 Nacl 0.9% 1000 Ml IV 42 mls/hr DIRECT KWAME Administration Loperamide HCl 2 mg 11/08/18 22:06 Imodium PO Q2H PRN Diarrhea Methadone HCl 10 mg 11/09/18 10:00 11/20/18 11:22 Dolophine PO 10 mg DAILY KWAME Administration Midodrine 10 mg 11/11/18 09:53 11/20/18 11:29 Proamatine PO 10 mg TID@0600,1200,1800 KWAME Administration Multivitamins 1 each 11/09/18 10:00 11/20/18 11:22 Theragran Tab PO 1 each QDAY KWAME Administration Ondansetron HCl 4 mg 11/08/18 22:08 Zofran IV Q8H PRN Nausea And Vomiting Ondansetron HCl 4 mg 11/19/18 22:13 Zofran IV Q8H PRN Nausea And Vomiting Oxycodone/Acetaminophen 1 tab 11/08/18 22:06 11/20/18 13:57 Percocet 5/325 PO 1 tab Q4H PRN Administration Pain, Moderate (4-6) Pentoxifylline 200 mg 11/14/18 13:00 11/20/18 11:21 Trental PO 200 mg DAILY KWAME Administration Pregabalin 25 mg 11/09/18 08:00 11/20/18 13:57 Lyrica PO 25 mg TID KWAME Administration Pregabalin 75 mg 11/09/18 08:00 11/20/18 13:57 Lyrica PO 75 mg TID KWAME Administration Promethazine HCl 25 mg 11/09/18 09:27 Phenergan PO Q4HR PRN N/V UNRELIEVED BY JESSICA Sevelamer Carbonate 4,000 mg 11/09/18 08:00 11/20/18 11:23 Renvela PO 4,000 mg TIDWM KWAME Administration Sodium Chloride 10 ml 11/09/18 10:00 11/20/18 11:23 Sodium Chloride Flush Syringe 10 Ml IV 10 ml BID KWAME Administration Sodium Chloride 10 ml 11/08/18 22:08 11/12/18 22:36 Sodium Chloride Flush Syringe 10 Ml IV 10 ml PRN PRN Administration LINE FLUSH Sodium Chloride 250 ml 11/10/18 13:00 11/10/18 13:10 Nacl 0.9% 250ml IV 250 ml DIRECT KWAME Administration Trazodone HCl 50 mg 11/09/18 10:00 11/20/18 11:22 Desyrel PO 50 mg BID KWAME Administration Zolpidem Tartrate 10 mg 11/08/18 22:06 11/14/18 21:09 Ambien PO 10 mg QHS PRN Administration Sleep
[2018-11-21] MEDS: DESYREL PO SCH ×3 (02:51→22:59)
[2018-11-21] MEDS: SODIUM CHLORIDE FLUSH SYRINGE 10 ML IV SCH ×3 (02:55→23:00)
[2018-11-21] MEDS: PROAMATINE PO SCH ×3 (05:30→17:15)
[2018-11-21] MEDS: PERCOCET 5/325 PO PRN (05:31)
[2018-11-21 08:47] LABS: BUN/Creatinine Ratio TNR; Blood Urea Nitrogen TNR mg/dL (9-20); Calcium TNR mg/dL (8.4-10.2); Hemolysis Index TNR
[2018-11-21] MEDS: LYRICA PO SCH ×6 (09:00→22:41)
[2018-11-21] MEDS: RENVELA PO SCH ×3 (09:01→17:17)
[2018-11-21 09:40] LABS: Calcium 9.9 mg/dL (8.4-10.2)
[2018-11-21] MEDS: DOLOPHINE PO SCH (10:01)
[2018-11-21] MEDS: THERAGRAN Tab PO SCH (10:01)
[2018-11-21] MEDS: PEPCID PO SCH ×2 (10:02→22:41)
[2018-11-21] MEDS: TRENTAL PO SCH (10:02)
[2018-11-21] MEDS: ASPIRIN PO SCH (10:03)
[2018-11-21] MEDS: COREG PO SCH ×2 (10:03→22:57)
[2018-11-21] MEDS: MERREM 1,000 MG in NACL 0.9% 100 ML IV SCH (10:04)
[2018-11-21] MEDS: PLAVIX PO SCH (10:05)
--- NOTE | 2018-11-21 10:45 | Progress Note ---
Assessment and Plan Cultures: 11/08 BCx - ESBL Klebsiella 11/09 wound Cx - ESBL Klebsiella, Enterococcus 11/11 BCx- no growth A/P 53 yo M PMHx DM2, ESRD on HD, PVD, osteomyelitis of the L foot s/p partial 5th ray amputation on 11/03 admitted with new onset L foot pain. 1) wound infection - Wound culture grew ESBL Klebsiella and Enterococcus. s/p Angiography of the right lower extremity 11/14/18. s/p Debridement today of left foot wound. Left 4th toe and soft tissue along lateral foot now gangrenous. The left 4th MTP joint is also exposed and is partially disarticulated.TMA of left 4th toe and debridement of necrotic bone (left 5th metatarsal bone). Appreciate cultures that were sent. If ostemyelitis will have to extend antibiotic course. Per Dr. Teague's note: patient is not a candidate for long-term central venous access on either the right or the left. The patient will either require antibiotic treatment during dialysis sessions or placement of a central venous catheter below the waist which he has previously refused. 2) ESBL Klebsiella Bacteremia - Will need 2 weeks of therapy. Order placed with case management. 3) Recent Hx of osteomyelitis - s/p partial 5th ray amputation; clean margins achieved by surgery. 4) PVD 5) ESRD on HD 6) DM2 Recs: -Continue Meropenem 1 gm IV every 24 hours for total 2 weeks ending 11/22/18 ( tentative stop date, If ostemyelitis will have to extend antibiotic course) -follow-up out patient wound care -follow-up OR cultures and pathology [facility] M: [id number] O:[phone] Subjective Date of service: 11/21/18 Principal diagnosis: ESRD on HD Interval history: Patient seen and examined. Laying in bed. Reports no acute pain. + generalized weakness . No fevers. Objective - Exam Narrative Exam: Constitutional: Awake. Alert. no acute distress Head, Ears, Nose: Normocephalic, atraumatic. External ears, nose normal Eyes: Conjunctivae/corneas clear. No icterus. No ptosis. Neck: Supple, no meningeal signs Oral: Poor dentition, moist mucous membranes Cardiovascular: S1, S2 normal. Normal rhythm Respiratory: Good air entry, clear to auscultation bilaterally GI: Soft, non-tender; bowel sounds normal. No peritoneal signs Musculoskeletal: No pedal edema, Skin:l left 4th toe and debridement of necrotic bone (left 5th metatarsal bone). + Dressing c/d/i Hem/Lymphatic: No palpable cervical or supraclavicular nodes. No lymphangitis Psych: no agitation Neurological: Moves all extremities, no focal defects - Constitutional Vitals: Vital Signs Temp Pulse Resp BP Pulse Ox 97.7 F 91 H 18 123/103 95 11/21/18 05:15 11/21/18 05:15 11/21/18 05:31 11/21/18 05:15 11/21/18 05:15 Temperature -Last 24 Hours Temperature 97.7 F Temperature 98.1 F Temperature 98.0 F Temperature 97.5 F - Labs CBC & Chem 7: 11/15/18 06:48 11/21/18 09:09 Labs: Abnormal lab results 11/20/18 11/21/18 Range/Units 01:32 09:09 Sodium 134 L 134 L (137-145) mmol/L Potassium 5.3 H 5.5 H (3.6-5.0) mmol/L Chloride 89.1 L 89.1 L (98-107) mmol/L BUN 52 H 64 H (9-20) mg/dL Creatinine 10.6 H 11.9 H (0.8-1.5) mg/dL Glucose 217 H 110 H (75-100) mg/dL
--- NOTE | 2018-11-21 10:45 | Progress Note ---
Assessment and Plan ESRD on hemodialysis: -Hemodialysis today for UF and clearance. -Fluid restriction of 32 ounces per day -Renal/Dialysis diet -Obtain daily weights -Monitor I/O's -Assess dialysis needs daily Left foot pain: -S/P Transmetatarsal amputation, left 5th toe on 11/03/18 -S/P debridement of left foot wound today on 11/15/18 -S/P TMA of left 4th toe and debridement of necrotic bone (left 5th metatarsal bone) on 11/17/18 -On IV Merrem 1 gram every 24 hour, to continue until 11/22/18, duration may be longer if have osteomyelitis per ID -Surgeon onboard Chronic Hypotension: -On Midodrine -Monitor BP Subjective Date of service: 11/21/18 Principal diagnosis: ESRD on HD Interval history: Patient seen lying in bed. Awake and alert. Dialysis about to begin at bedside. Objective - Vital Signs Vital signs: Vital Signs - 12hr 11/20/18 11/21/18 11/21/18 23:39 05:15 05:31 Temperature 98.1 F 97.7 F Pulse Rate 90 91 H Respiratory 16 18 18 Rate Blood Pressure 82/41 123/103 O2 Sat by Pulse 94 41 L Oximetry - General Appearance General appearance: well-developed, appears stated age, fatigue EENT: ATNC, PERRL, hearing intact, vision intact Neck: no JVD, supple Respiratory: Present: Decreased Breath Sounds Cardiology: S1S2 Gastrointestinal: normoactive bowel sounds Integumentary: warm and dry Neurologic: alert and oriented x3 Musculoskeletal: other (Left foot dressing intact) - Lab 11/15/18 06:48 11/21/18 09:09 Most recent lab results Calcium 9.9 mg/dL (8.4-10.2) 11/21/18 09:09 Phosphorus 4.90 mg/dL (2.5-4.5) H 11/15/18 06:48 Medications & Allergies - Medications Allergies/Adverse Reactions: Allergies No Known Allergies Allergy (Verified 09/06/18 10:32) Home Medications: Home Medications Medication Instructions Recorded Confirmed Last Taken Type Phenergan TAB 25 tab PO PRN 07/21/18 11/08/18 11/07/18 History Varenicline Tartrate [Chantix] 1 mg PO DAILY 07/21/18 11/08/18 11/02/18 History Aspirin 325 mg PO QDAY #30 tablet 07/28/18 11/08/18 11/07/18 Rx Loperamide [Imodium] 2 mg PO Q2H PRN capsule 07/28/18 11/08/18 11/07/18 Rx Methadone [Dolophine] 10 mg PO DAILY #10 tablet 07/28/18 11/08/18 11/07/18 Rx Midodrine [Proamatine] 5 mg PO TID #90 tablet 07/28/18 11/08/18 11/07/18 Rx Multivitamin Tab [Multiple Vitamin 1 each PO QDAY #30 tablet 07/28/18 11/08/18 11/07/18 Rx TAB (Theragran)] Pregabalin [Lyrica] 100 mg PO TID #30 capsule 07/28/18 11/08/18 11/07/18 Rx Sevelamer Carbonate [Renvela] 4,000 mg PO TIDWM #30 tablet 07/28/18 11/08/18 11/07/18 Rx Zolpidem [Ambien] 10 mg PO QHS PRN #12 tablet 07/28/18 11/08/18 11/07/18 Rx ALPRAZolam [Xanax TAB] 2 mg PO TID PRN 10/20/18 11/08/18 11/07/18 History AtorvaSTATin [Lipitor] 40 mg PO QHS #30 tablet 10/21/18 11/08/18 11/07/18 Rx Carvedilol [Coreg] 3.125 mg PO BID tablet 10/21/18 11/08/18 11/07/18 Rx Clopidogrel [Plavix] 75 mg PO QDAY #30 tablet 10/21/18 11/08/18 11/07/18 Rx traZODone [Desyrel] 50 mg PO BID 10/31/18 11/08/18 11/07/18 History oxyCODONE /ACETAMINOPHEN [Percocet 1 tab PO Q4HR PRN #40 tab 11/03/18 11/08/18 11/07/18 Rx 5/325] Active Medications: Generic Name Dose Route Start Last Admin Trade Name Freq PRN Reason Stop Dose Admin Acetaminophen 650 mg 11/08/18 22:08 Tylenol PO Q4H PRN Pain MILD(1-3)/Fever >100.5/WEST Alprazolam 2 mg 11/08/18 22:06 11/19/18 21:38 Xanax PO 2 mg TID PRN Administration Anxiety Aspirin 325 mg 11/09/18 10:00 11/21/18 10:03 Aspirin PO 325 mg QDAY KWAME Administration Atorvastatin Calcium 40 mg 11/09/18 22:00 11/20/18 22:39 Lipitor PO 40 mg QHS KWAME Administration Carvedilol 3.125 mg 11/09/18 10:00 11/21/18 10:03 Coreg PO 3.125 mg BID KWAME Administration Clopidogrel Bisulfate 75 mg 11/09/18 10:00 11/21/18 10:05 Plavix PO 75 mg QDAY KWAME Administration Diphenhydramine HCl 25 mg 11/14/18 15:08 Benadryl IV Q8H PRN Itching Famotidine 10 mg 11/08/18 23:00 11/21/18 10:02 Pepcid PO 10 mg BID KWAME Administration Sodium Chloride 100 mls @ 999 mls/hr 11/08/18 18:14 Nacl 0.9% IV DWIGHT PRN Hypotension Meropenem 1,000 mg/ Sodium 100 mls @ 100 mls/hr 11/14/18 15:00 11/21/18 10:04 Chloride IV 11/22/18 23:59 100 mls/hr Q24HR KWAME Administration Sodium Chloride 1,000 mls @ 42 mls/hr 11/17/18 12:00 11/17/18 12:05 Nacl 0.9% 1000 Ml IV 42 mls/hr DIRECT KWAME Administration Loperamide HCl 2 mg 11/08/18 22:06 Imodium PO Q2H PRN Diarrhea Methadone HCl 10 mg 11/09/18 10:00 11/21/18 10:01 Dolophine PO 10 mg DAILY KWAME Administration Midodrine 10 mg 11/11/18 09:53 11/21/18 05:30 Proamatine PO 10 mg TID@0600,1200,1800 KWAME Administration Multivitamins 1 each 11/09/18 10:00 11/21/18 10:01 Theragran Tab PO 1 each QDAY KWAME Administration Ondansetron HCl 4 mg 11/08/18 22:08 Zofran IV Q8H PRN Nausea And Vomiting Ondansetron HCl 4 mg 11/19/18 22:13 Zofran IV Q8H PRN Nausea And Vomiting Oxycodone/Acetaminophen 1 tab 11/08/18 22:06 11/21/18 05:31 Percocet 5/325 PO 1 tab Q4H PRN Administration Pain, Moderate (4-6) Pentoxifylline 200 mg 11/14/18 13:00 11/21/18 10:02 Trental PO 200 mg DAILY KWAME Administration Pregabalin 25 mg 11/09/18 08:00 11/21/18 09:01 Lyrica PO 25 mg TID KWAME Administration Pregabalin 75 mg 11/09/18 08:00 11/21/18 09:00 Lyrica PO 75 mg TID KWAME Administration Promethazine HCl 25 mg 11/09/18 09:27 Phenergan PO Q4HR PRN N/V UNRELIEVED BY JESSICA Sevelamer Carbonate 4,000 mg 11/09/18 08:00 11/21/18 09:01 Renvela PO 4,000 mg TIDWM KWAME Administration Sodium Chloride 10 ml 11/09/18 10:00 11/21/18 10:05 Sodium Chloride Flush Syringe 10 Ml IV 10 ml BID KWAME Administration Sodium Chloride 10 ml 11/08/18 22:08 11/12/18 22:36 Sodium Chloride Flush Syringe 10 Ml IV 10 ml PRN PRN Administration LINE FLUSH Sodium Chloride 250 ml 11/10/18 13:00 11/10/18 13:10 Nacl 0.9% 250ml IV 250 ml DIRECT KWAME Administration Trazodone HCl 50 mg 11/09/18 10:00 11/21/18 10:01 Desyrel PO 50 mg BID KWAME Administration Zolpidem Tartrate 10 mg 11/08/18 22:06 11/14/18 21:09 Ambien PO 10 mg QHS PRN Administration Sleep
--- NOTE | 2018-11-21 15:17 | Progress Note ---
Assessment and Plan /ESBL bacteremia : Contact isolation IV antibiotics with meropenem, ID following, Continue Meropenem 1 gm IV every 24 hours for total 2 weeks ending 11/22/18 if no sign of osteo found on LLE from OR cx /LEFT foot wound with positive ESBL wound cultures : Contact isolation, x-ray no osteomyelitis Presented with Lt Foot hematoma following amputation on 11/03: s/p incision and drainage on 11/09, 11/10, 11/15 cont IV antibiotics, supportive care, ID following, Surgery following, s/p TMA of left 4th toe and debridement of necrotic bone (left 5th metatarsal bone) 11/17, if clear margin achieved then abx will need till 11/22/18 -follow-up OR cultures and pathology (obtained 11/17) /h/o Osteomyelitis of the L foot s/p partial 5th ray amputation on 11/03 with achievement of clean margin /Peripheral Vascular disease with non healing LLE ulcer; vascular following s/p CT Angiography of the left lower extremity with revascularization 11/14 /-End Stage Renal disease on hemodialysis; Nephrology following, dialysis per schedule /Chronic hypotension; Closely monitor blood pressures, continue midodrine /-DVT prophylaxis; Lovenox Disposition; continue inpatient management f/u ID and vascular rec. Pending bone biopsy, PT RECOMMENDED ANGEL, CM following Brief History 53 yo M PMHx DM2, ESRD on HD, PVD, osteomyelitis of the L foot s/p partial 5th ray amputation on 11/03 admitted with new onset L foot pain. The pain began 5 days prior to admission in roughly the same area as the recent surgery. He notes some associated drainage at the site and surrounding redness, some low grade fevers at home but denies sweats or chills. Patient was evaluated by surgery underwent incision and drainage inside and debridement of left foot hematoma on 11/10 and 11/09. Vascular evaluated the patient and s/p CT angiography and revascularization on 11/14, s/p amputation and I and D on 11/17. follow-up OR cultures and pathology - if cx negative then cont meropenem till 11/22 - need ANGEL on d/c Hospitalist Physical General appearance: Present: no acute distress, well-nourished - EENT Eyes: Present: PERRL, EOM intact - Neck Neck: Present: supple, normal ROM - Respiratory Respiratory effort: normal Respiratory: negative: diminished, rales, rhonchi - Cardiovascular Rhythm: regular Heart Sounds: Present: S1 & S2 - Extremities Extremities: no ischemia, abnormal (left foot dressing in place) - Abdominal General gastrointestinal: soft, non-tender, non-distended, normal bowel sounds - Integumentary Integumentary: Present: clear, warm - Psychiatric Psychiatric: appropriate mood/affect, cooperative - Neurologic Neurologic: CNII-XII intact, moves all extremities Subjective Date of service: 11/21/18 Principal diagnosis: ESRD on HD Interval history: Patient seen and examined. Medical records and medication list reviewed. No acute event overnight noted by the RN. Patient denies any chest pain or difficulty breathing. Patient is tolerating diet. Discussed plan of care at bedside with patient. PT RECOMMENDED ANGEL - CM on board Pending OR cultures and pathology Objective - Constitutional Vitals: Vital Signs - 12hr 11/21/18 11/21/18 11/21/18 05:15 05:31 11:20 Temperature 97.7 F 97.9 F Pulse Rate 91 H 93 H Respiratory 18 18 16 Rate Blood Pressure 123/103 84/44 O2 Sat by Pulse 41 L Oximetry 11/21/18 11/21/18 11/21/18 11:30 11:40 11:50 Temperature Pulse Rate 93 H 86 83 Respiratory Rate Blood Pressure 63/33 70/40 74/40 O2 Sat by Pulse Oximetry 11/21/18 11/21/18 11/21/18 11:55 12:00 12:41 Temperature 97.6 F Pulse Rate 82 82 80 Respiratory 16 20 Rate Blood Pressure 74/39 79/42 92/40 O2 Sat by Pulse 97 Oximetry 11/21/18 11/21/18 11/21/18 14:20 14:30 14:41 Temperature 97.9 F Pulse Rate 77 78 80 Respiratory 16 Rate Blood Pressure 82/50 69/46 68/43 O2 Sat by Pulse Oximetry 11/21/18 11/21/18 11/21/18 14:45 15:00 15:11 Temperature Pulse Rate 80 82 87 Respiratory Rate Blood Pressure 67/41 67/42 54/34 O2 Sat by Pulse Oximetry - Labs CBC & Chem 7: 11/15/18 06:48 11/21/18 09:09 Labs: Abnormal lab results 11/21/18 Range/Units 09:09 Sodium 134 L (137-145) mmol/L Potassium 5.5 H (3.6-5.0) mmol/L Chloride 89.1 L (98-107) mmol/L BUN 64 H (9-20) mg/dL Creatinine 11.9 H (0.8-1.5) mg/dL Glucose 110 H (75-100) mg/dL
[2018-11-21] MEDS ORDERED: NACL 0.9% 500 ML 500 ML IV ONE (16:58)
[2018-11-21] MEDS ORDERED: NACL 0.9% 250ML 250 ML IV ONE (23:00)
[2018-11-21] MEDS: NACL 0.9% 250ML IV SCH (23:03)
[2018-11-22] MEDS: PROAMATINE PO SCH ×3 (05:29→17:56)
[2018-11-22 07:34] LABS: Basophils % (Auto) 0.3 % (0.0-1.8); Eosinophils # (Auto) 0.2 K/mm3 (0.0-0.4); Eosinophils % (Auto) 2.2 % (0.0-4.3); Hematocrit 31.5 % (35.5-45.6); Hemoglobin 10.5 gm/dl (11.8-15.2); Lymphocytes # (Auto) 1.3 K/mm3 (1.2-5.4); Lymphocytes % (Auto) 12.1 % (13.4-35.0); Mean Corpuscular HGB Conc 33 % (32-34); Mean Corpuscular Volume 91 fl (84-94); Monocytes # (Auto) 1.3 K/mm3 (0.0-0.8); Monocytes % (Auto) 11.8 % (0.0-7.3); Platelet Count 141 K/mm3 (140-440); Red Blood Count 3.47 M/mm3 (3.65-5.03); Red Cell Distribution Width 17.4 % (13.2-15.2)
[2018-11-22 07:35] LABS: Calcium 9.8 mg/dL (8.4-10.2)
[2018-11-22] MEDS: LYRICA PO SCH ×6 (08:55→20:22)
[2018-11-22] MEDS: COREG PO SCH ×2 (09:12→23:01)
[2018-11-22] MEDS: RENVELA PO SCH ×3 (09:38→17:56)
--- NOTE | 2018-11-22 10:21 | Progress Note ---
Assessment and Plan Cultures: 11/08 BCx - ESBL Klebsiella 11/09 wound Cx - ESBL Klebsiella, Enterococcus 11/11 BCx- no growth A/P 53 yo M PMHx DM2, ESRD on HD, PVD, osteomyelitis of the L foot s/p partial 5th ray amputation on 11/03 admitted with new onset L foot pain. 1) wound infection - Wound culture grew ESBL Klebsiella and Enterococcus. s/p Angiography of the right lower extremity 11/14/18. s/p Debridement today of left foot wound. Left 4th toe and soft tissue along lateral foot now gangrenous. The left 4th MTP joint is also exposed and is partially disarticulated. S/P TMA of left 4th toe and debridement of necrotic bone (left 5th metatarsal bone) 11/17/18 . Appreciate cultures that were sent. If ostemyelitis will have to extend antibiotic course. Per Dr. Teague's note: patient is not a candidate for long- term central venous access on either the right or the left. The patient will either require antibiotic treatment during dialysis sessions or placement of a central venous catheter below the waist which he has previously refused. 2) ESBL Klebsiella Bacteremia - Will need 2 weeks of therapy. Order placed with case management. 3) Recent Hx of osteomyelitis - s/p partial 5th ray amputation; clean margins achieved by surgery. 4) PVD 5) ESRD on HD 6) DM2 Recs: -Continue Meropenem 1 gm IV every 24 hours -pending pathology from the surgery to determine if surgical cure was obtained. (message left with pathology, unable to retrieve report) Carolina Kraft NP [facility] M: [id number] O:[phone] Subjective Date of service: 11/22/18 Principal diagnosis: ESRD on HD Interval history: Patient seen and examined. Sitting on the side of the bed. Reports no acute pain. + generalized weakness . No fevers. Objective - Exam Narrative Exam: Constitutional: Awake. Alert. no acute distress Head, Ears, Nose: Normocephalic, atraumatic. External ears, nose normal Eyes: Conjunctivae/corneas clear. No icterus. No ptosis. Neck: Supple, no meningeal signs Oral: Poor dentition, moist mucous membranes Cardiovascular: S1, S2 normal. Normal rhythm Respiratory: Good air entry, clear to auscultation bilaterally GI: Soft, non-tender; bowel sounds normal. No peritoneal signs Musculoskeletal: No pedal edema, Skin:l left 4th toe and debridement of necrotic bone (left 5th metatarsal bone). + Dressing c/d/i Hem/Lymphatic: No palpable cervical or supraclavicular nodes. No lymphangitis Psych: no agitation Neurological: Moves all extremities, no focal defects - Constitutional Vitals: Vital Signs Temp Pulse Resp BP Pulse Ox 97.7 F 92 H 18 89/50 97 11/22/18 07:45 11/22/18 02:15 11/22/18 07:45 11/22/18 07:45 11/22/18 07:45 Temperature -Last 24 Hours Temperature 97.7 F Temperature 98.0 F Temperature 97.6 F Temperature 97.9 F Temperature 97.6 F Temperature 97.9 F - Labs CBC & Chem 7: 11/22/18 06:55 11/22/18 06:55 Labs: Abnormal lab results 11/22/18 11/22/18 Range/Units 06:55 06:55 RBC 3.47 L (3.65-5.03) M/mm3 Hgb 10.5 L (11.8-15.2) gm/dl Hct 31.5 L (35.5-45.6) % RDW 17.4 H (13.2-15.2) % Lymph % (Auto) 12.1 L (13.4-35.0) % [place] % (Auto) 11.8 H (0.0-7.3) % [place] # 1.3 H (0.0-0.8) K/mm3 Seg Neutrophils % 73.6 H (40.0-70.0) % Seg Neutrophils # 8.0 H (1.8-7.7) K/mm3 Sodium 134 L (137-145) mmol/L Potassium 5.2 H (3.6-5.0) mmol/L Chloride 90.0 L (98-107) mmol/L BUN 48 H (9-20) mg/dL Creatinine 10.1 H (0.8-1.5) mg/dL
--- NOTE | 2018-11-22 10:53 | Progress Note ---
Assessment and Plan Assessment and plan: --ESBL bacteremia : Contact isolation IV antibiotics with meropenem, ID following, Continue Meropenem 1 gm IV every 24 hours for total 2 weeks ending 11/22/18 if no sign of osteo found on LLE from OR cx --LEFT foot wound with positive ESBL wound cultures : Contact isolation, x-ray no osteomyelitis Presented with Lt Foot hematoma following amputation on 11/03: s/p incision and drainage on 11/09, 11/10, 11/15 cont IV antibiotics, supportive care, ID following, Surgery following, s/p TMA of left 4th toe and debridement of necrotic bone (left 5th metatarsal bone) 11/17, if clear margin achieved then abx will need till 11/22/18 -follow-up OR cultures and pathology (obtained 11/17) --h/o Osteomyelitis of the L foot s/p partial 5th ray amputation on 11/03 with achievement of clean margin --Peripheral Vascular disease with non healing LLE ulcer; vascular following s/p CT Angiography of the left lower extremity with revascularization 11/14 --End Stage Renal disease on hemodialysis; Nephrology following, dialysis per schedule --Chronic hypotension; Closely monitor blood pressures, continue midodrine --DVT prophylaxis; Lovenox Disposition; continue inpatient management f/u ID and vascular rec. Pending bone biopsy, PT RECOMMENDED ANGEL, CM following History Interval history: Patient seen and examined medical records reviewed no new events reported by the nursing Patient feels slightly better complains of some pain in the foot Alert awake oriented Vital signs noted Hospitalist Physical - Constitutional Vitals: Temp Pulse Resp BP Pulse Ox 97.7 F 92 H 18 89/50 97 11/22/18 07:45 11/22/18 02:15 11/22/18 07:45 11/22/18 07:45 11/22/18 07:45 General appearance: Present: no acute distress, well-nourished - EENT Eyes: Present: PERRL, EOM intact - Neck Neck: Present: supple, normal ROM - Respiratory Respiratory effort: normal Respiratory: bilateral: diminished, negative: rales, rhonchi, wheezing - Cardiovascular Rhythm: regular Heart Sounds: Present: S1 & S2 - Extremities Extremities: no ischemia, No edema, abnormal (left foot dressing in place) - Abdominal General gastrointestinal: soft, non-tender, non-distended, normal bowel sounds - Integumentary Integumentary: Present: clear, warm - Psychiatric Psychiatric: appropriate mood/affect, cooperative - Neurologic Neurologic: CNII-XII intact, moves all extremities Results - Labs CBC & Chem 7: 11/22/18 06:55 11/22/18 06:55 Labs: Laboratory Last Values WBC 10.8 K/mm3 (4.5-11.0) 11/22/18 06:55 RBC 3.47 M/mm3 (3.65-5.03) L 11/22/18 06:55 Hgb 10.5 gm/dl (11.8-15.2) L 11/22/18 06:55 POC Hgb 13.3 (12-17) 11/17/18 12:17 Hct 31.5 % (35.5-45.6) L 11/22/18 06:55 POC Hct 39 (38-51) 11/17/18 12:17 MCV 91 fl (84-94) 11/22/18 06:55 MCH 30 pg (28-32) 11/22/18 06:55 MCHC 33 % (32-34) 11/22/18 06:55 RDW 17.4 % (13.2-15.2) H 11/22/18 06:55 Plt Count 141 K/mm3 (140-440) 11/22/18 06:55 Lymph % (Auto) 12.1 % (13.4-35.0) L 11/22/18 06:55 [place] % (Auto) 11.8 % (0.0-7.3) H 11/22/18 06:55 Eos % (Auto) 2.2 % (0.0-4.3) 11/22/18 06:55 Baso % (Auto) 0.3 % (0.0-1.8) 11/22/18 06:55 Lymph # 1.3 K/mm3 (1.2-5.4) 11/22/18 06:55 [place] # 1.3 K/mm3 (0.0-0.8) H 11/22/18 06:55 Eos # 0.2 K/mm3 (0.0-0.4) 11/22/18 06:55 Baso # 0.0 K/mm3 (0.0-0.1) 11/22/18 06:55 Seg Neutrophils % 73.6 % (40.0-70.0) H 11/22/18 06:55 Seg Neutrophils # 8.0 K/mm3 (1.8-7.7) H 11/22/18 06:55 PT 15.7 Sec. (12.2-14.9) H 11/08/18 14:33 INR 1.28 (0.87-1.13) H 11/08/18 14:33 VBG pH 7.369 (7.320-7.420) 11/08/18 14:33 POC Sodium 139 mmol/L (138-146) 11/17/18 12:17 POC Potassium 5.1 (3.5-4.9) H 11/17/18 12:17 POC Chloride 105 (98-109) 11/17/18 12:17 Sodium 134 mmol/L (137-145) L 11/22/18 06:55 Potassium 5.2 mmol/L (3.6-5.0) H 11/22/18 06:55 Chloride 90.0 mmol/L (98-107) L 11/22/18 06:55 Carbon Dioxide 26 mmol/L (22-30) 11/22/18 06:55 23 mmol/L 11/22/18 06:55 POC BUN 47 mg/dl (8-26) H 11/17/18 12:17 BUN 48 mg/dL (9-20) H 11/22/18 06:55 10.1 mg/dL (0.8-1.5) H 11/22/18 06:55 Estimated GFR 7 ml/min 11/22/18 06:55 5 % 11/22/18 06:55 Glucose 96 mg/dL (75-100) 11/22/18 06:55 POC Glucose 96 (70-105) 11/17/18 14:03 5.1 % (4-6) 11/08/18 14:33 Lactic Acid 0.70 mmol/L (0.7-2.0) 11/08/18 17:38 Calcium 9.8 mg/dL (8.4-10.2) 11/22/18 06:55 Phosphorus 4.90 mg/dL (2.5-4.5) H 11/15/18 06:48 0.50 mg/dL (0.1-1.2) 11/08/18 14:33 AST 38 units/L (5-40) 11/08/18 14:33 ALT < 5 units/L (7-56) L 11/08/18 14:33 100 units/L (35-129) 11/08/18 14:33 9.0 g/dL (6.3-8.2) H 11/08/18 14:33 4.1 g/dL (3.9-5) 11/08/18 14:33 0.8 % 11/08/18 14:33 Random Vancomycin 16.0 ug/mL (0-40.0) 11/11/18 05:02 Active Medications - Current Medications Current Medications: Generic Name Dose Route Start Last Admin Trade Name Freq PRN Reason Stop Dose Admin Acetaminophen 650 mg 11/08/18 22:08 Tylenol PO Q4H PRN Pain MILD(1-3)/Fever >100.5/WEST Alprazolam 2 mg 11/08/18 22:06 11/19/18 21:38 Xanax PO 2 mg TID PRN Administration Anxiety Aspirin 325 mg 11/09/18 10:00 11/21/18 10:03 Aspirin PO 325 mg QDAY KWAME Administration Atorvastatin Calcium 40 mg 11/09/18 22:00 11/21/18 22:41 Lipitor PO 40 mg QHS KWAME Administration Carvedilol 3.125 mg 11/09/18 10:00 11/22/18 09:12 Coreg PO Not Given BID KWAME Clopidogrel Bisulfate 75 mg 11/09/18 10:00 11/21/18 10:05 Plavix PO 75 mg QDAY KWAME Administration Diphenhydramine HCl 25 mg 11/14/18 15:08 Benadryl IV Q8H PRN Itching Famotidine 10 mg 11/08/18 23:00 11/21/18 22:41 Pepcid PO 10 mg BID KWAME Administration Heparin Sodium (Porcine) 5,000 unit 11/22/18 10:00 Heparin SUB-Q Q12HR KWAME Sodium Chloride 100 mls @ 999 mls/hr 11/08/18 18:14 Nacl 0.9% IV DWIGHT PRN Hypotension Meropenem 1,000 mg/ Sodium 100 mls @ 100 mls/hr 11/14/18 15:00 11/21/18 10:04 Chloride IV 11/22/18 23:59 100 mls/hr Q24HR KWAME Administration Sodium Chloride 1,000 mls @ 42 mls/hr 11/17/18 12:00 11/17/18 12:05 Nacl 0.9% 1000 Ml IV 42 mls/hr DIRECT KWAME Administration Loperamide HCl 2 mg 11/08/18 22:06 Imodium PO Q2H PRN Diarrhea Methadone HCl 10 mg 11/09/18 10:00 11/21/18 10:01 Dolophine PO 10 mg DAILY KWAME Administration Midodrine 10 mg 11/11/18 09:53 11/22/18 05:29 Proamatine PO 10 mg TID@0600,1200,1800 KWAME Administration Multivitamins 1 each 11/09/18 10:00 11/21/18 10:01 Theragran Tab PO 1 each QDAY KWAME Administration Ondansetron HCl 4 mg 11/19/18 22:13 Zofran IV Q8H PRN Nausea And Vomiting Oxycodone/Acetaminophen 1 tab 11/08/18 22:06 11/21/18 05:31 Percocet 5/325 PO 1 tab Q4H PRN Administration Pain, Moderate (4-6) Pentoxifylline 200 mg 11/14/18 13:00 11/21/18 10:02 Trental PO 200 mg DAILY KWAME Administration Pregabalin 25 mg 11/09/18 08:00 11/22/18 08:56 Lyrica PO 25 mg TID KWAME Administration Pregabalin 75 mg 11/09/18 08:00 11/22/18 08:55 Lyrica PO 75 mg TID KWAME Administration Promethazine HCl 25 mg 11/09/18 09:27 Phenergan PO Q4HR PRN N/V UNRELIEVED BY JESSICA Sevelamer Carbonate 4,000 mg 11/09/18 08:00 11/22/18 09:38 Renvela PO 4,000 mg TIDWM KWAME Administration Sodium Chloride 10 ml 11/09/18 10:00 11/21/18 23:00 Sodium Chloride Flush Syringe 10 Ml IV 10 ml BID KWAME Administration Sodium Chloride 10 ml 11/08/18 22:08 11/12/18 22:36 Sodium Chloride Flush Syringe 10 Ml IV 10 ml PRN PRN Administration LINE FLUSH Sodium Chloride 250 ml 11/10/18 13:00 11/21/18 23:03 Nacl 0.9% 250ml IV 250 ml DIRECT KWAME Administration Trazodone HCl 50 mg 11/09/18 10:00 11/21/18 22:59 Desyrel PO Not Given BID KWAME Zolpidem Tartrate 10 mg 11/08/18 22:06 11/14/18 21:09 Ambien PO 10 mg QHS PRN Administration Sleep Nutrition/Malnutrition Assess - Dietary Evaluation Nutrition/Malnutrition Findings: Nutrition Notes Start: 11/15/18 13:06 Freq: Status: Active Protocol: Document 11/18/18 19:09 RM (Rec: 11/18/18 19:16 RM [email or web address]) Nutrition Notes Initial or Follow up Reassessment Current Diagnosis CKD (stage V CKD),Decubitus( Pressure Ulcer),Diabetes, Hypertension Other Pertinent Diagnosis foot wound Current Diet Consistent CHO Labs/Tests Reviewed Pertinent Medications Reviewed Height 6 ft 1 in Weight 82.5 kg [place] Body Weight (kg) 83.63 BMI 24.0 Subjective/Other Information NPO in place earlier today. Consistent CHO ordered later today. Ensure Clear was not carried over. Pt stated that his appetite is good and that he ate all of his breakfast. Pt stated that he likes the Ensure Clear. Percent of energy/protein needs met: 100%/100% Burn Absent Trauma Absent #2 Nutrition Diagnosis Increased nutrient needs ( specify in comment below) Diagnosis Progress(for reassessment Continues documentation) #1 Nutrition Diagnosis Inadequate oral intake As Evidenced by Signs and Symptoms pt meeting 100% of calorie and protein needs Diagnosis Progress(for reassessment Resolved documentation) Is patient on ventilator? No Is Patient Ambulatory and/or Out of Bed Yes REE-([facility]-ambulatory/OOB) [ [id number] [id number]] Calculation Used for Recommendations [facility] Additional Notes Protein needs are 101-118g (1. 2-1.4g/kg) Fluid needs are 1ml/kcal Nutrition Intervention Change Diet Order: Renal Add Supplement/Snack (indicate name/kcal Add back Ensure Clear BID /protein ) soler Provides kCal: 440 Provides Protein (gm) 16 Goal #1 Continue to meet at least 75% of kcal and protein needs via PO and ONS intakes Goal #2 Wound healing Anticipated Discharge Needs: Renal consistent CHO Nepro soler BID Follow-Up By: 11/23/18 Additional Comments Follow for PO and ONS intakes
[2018-11-22] MEDS: PLAVIX PO SCH (11:06)
[2018-11-22] MEDS: DESYREL PO SCH ×2 (11:06→23:02)
[2018-11-22] MEDS: DOLOPHINE PO SCH (11:06)
[2018-11-22] MEDS: PEPCID PO SCH ×2 (11:07→23:00)
[2018-11-22] MEDS: ASPIRIN PO SCH (11:07)
[2018-11-22] MEDS: TRENTAL PO SCH (11:07)
[2018-11-22] MEDS: HEPARIN SUB-Q SCH ×2 (11:08→23:00)
[2018-11-22] MEDS: MERREM 1,000 MG in NACL 0.9% 100 ML IV SCH (11:08)
[2018-11-22] MEDS: THERAGRAN Tab PO SCH (11:08)
[2018-11-22] MEDS: SODIUM CHLORIDE FLUSH SYRINGE 10 ML IV SCH ×2 (11:08→23:01)
--- NOTE | 2018-11-22 11:35 | Procedure Note ---
Date of procedure: 11/22/18 Pre-op diagnosis: 1) Left lateral foot wound 2) Necrotic skin, left medial foot Post-op diagnosis: same Procedure: Surgical debridement of necrotic muscle and fascia, left lateral foot and selective debridement of necrotic skin, left medial foot Description of procedure: Pt was supine on his bed. His left foot was prepped and draped. Necrotic SQ tissue, muscle and fascia were surgically, excisionally debrided from the left lateral foot wound with a curette. Bleeding was minimal and was controlled with pressure. Necrotic skin was then selectively debrided from the left medial foot with a curette. There was no bleeding. Pt tolerated the procedure well. His wounds were dressed by the Wound Care team. Final wound measurements were as follows: 1) Left lateral foot - 6.5 X 12.5 X 3 cm 2) Left medial foot - 12 X 5.1 X 0.1 cm Anesthesia: none Surgeon: YURIDIA STEWART Estimated blood loss: minimal Pathology: none Specimen disposition: discarded Condition: stable Disposition: no change
--- NOTE | 2018-11-22 12:40 | Progress Note ---
Assessment and Plan ESRD on hemodialysis: -no indication for HD today -Fluid restriction of 32 ounces per day -Renal/Dialysis diet -Obtain daily weights -Monitor I/O's -Assess dialysis needs daily Left foot pain: -S/P Transmetatarsal amputation, left 5th toe on 11/03/18 -S/P debridement of left foot wound today on 11/15/18 -S/P TMA of left 4th toe and debridement of necrotic bone (left 5th metatarsal bone) on 11/17/18 -On IV Merrem 1 gram every 24 hour, to continue until 11/22/18, duration may be longer if have osteomyelitis per ID -Surgeon onboard Chronic Hypotension: -On Midodrine Subjective Date of service: 11/22/18 Principal diagnosis: ESRD on HD Interval history: tolerated HD yesterday, feels sleepy Objective - Vital Signs Vital signs: Vital Signs - 12hr 11/22/18 11/22/18 11/22/18 02:04 02:15 04:49 Temperature 97.7 F Pulse Rate 92 H 84 Respiratory 20 18 Rate Blood Pressure 82/44 89/50 Blood Pressure 82/44 [Left] O2 Sat by Pulse 94 99 Oximetry 11/22/18 11/22/18 07:45 12:18 Temperature 97.7 F 97.9 F Pulse Rate 101 H Respiratory 18 16 Rate Blood Pressure 84/46 Blood Pressure 89/50 [Left] O2 Sat by Pulse 97 94 Oximetry - General Appearance General appearance: well-developed, well-nourished, appears stated age EENT: ATNC, PERRL, mucous membranes moist Neck: no JVD, no carotid bruit Respiratory: Present: Clear to Ascultation. Absent: Rales, Ronchi Cardiology: regular, S1S2 Gastrointestinal: normoactive bowel sounds Integumentary: no rash, warm and dry Neurologic: no focal deficit, no asterixis, alert and oriented x3 Musculoskeletal: other (no edema in BLE) Psychiatric: cooperative - Lab 11/22/18 06:55 11/22/18 06:55 Most recent lab results Calcium 9.8 mg/dL (8.4-10.2) 11/22/18 06:55 Phosphorus 4.90 mg/dL (2.5-4.5) H 11/15/18 06:48 Medications & Allergies - Medications Allergies/Adverse Reactions: Allergies No Known Allergies Allergy (Verified 05/28/19 10:32) Home Medications: Home Medications Medication Instructions Recorded Confirmed Last Taken Type Phenergan TAB 25 tab PO PRN 07/21/18 11/08/18 11/07/18 History Varenicline Tartrate [Chantix] 1 mg PO DAILY 07/21/18 11/08/18 11/02/18 History Aspirin 325 mg PO QDAY #30 tablet 07/28/18 11/08/18 11/07/18 Rx Loperamide [Imodium] 2 mg PO Q2H PRN capsule 07/28/18 11/08/18 11/07/18 Rx Methadone [Dolophine] 10 mg PO DAILY #10 tablet 07/28/18 11/08/18 11/07/18 Rx Midodrine [Proamatine] 5 mg PO TID #90 tablet 07/28/18 11/08/18 11/07/18 Rx Multivitamin Tab [Multiple Vitamin 1 each PO QDAY #30 tablet 07/28/18 11/08/18 11/07/18 Rx TAB (Theragran)] Pregabalin [Lyrica] 100 mg PO TID #30 capsule 07/28/18 11/08/18 11/07/18 Rx Sevelamer Carbonate [Renvela] 4,000 mg PO TIDWM #30 tablet 07/28/18 11/08/18 11/07/18 Rx Zolpidem [Ambien] 10 mg PO QHS PRN #12 tablet 07/28/18 11/08/18 11/07/18 Rx ALPRAZolam [Xanax TAB] 2 mg PO TID PRN 10/20/18 11/08/18 11/07/18 History AtorvaSTATin [Lipitor] 40 mg PO QHS #30 tablet 10/21/18 11/08/18 11/07/18 Rx Carvedilol [Coreg] 3.125 mg PO BID tablet 10/21/18 11/08/18 11/07/18 Rx Clopidogrel [Plavix] 75 mg PO QDAY #30 tablet 10/21/18 11/08/18 11/07/18 Rx traZODone [Desyrel] 50 mg PO BID 10/31/18 11/08/18 11/07/18 History oxyCODONE /ACETAMINOPHEN [Percocet 1 tab PO Q4HR PRN #40 tab 11/03/18 11/08/18 11/07/18 Rx 5/325] Active Medications: Generic Name Dose Route Start Last Admin Trade Name Freq PRN Reason Stop Dose Admin Acetaminophen 650 mg 11/08/18 22:08 Tylenol PO Q4H PRN Pain MILD(1-3)/Fever >100.5/WEST Alprazolam 2 mg 11/08/18 22:06 11/19/18 21:38 Xanax PO 2 mg TID PRN Administration Anxiety Aspirin 325 mg 11/09/18 10:00 11/22/18 11:07 Aspirin PO 325 mg QDAY KWAME Administration Atorvastatin Calcium 40 mg 11/09/18 22:00 11/21/18 22:41 Lipitor PO 40 mg QHS KWAME Administration Carvedilol 3.125 mg 11/09/18 10:00 11/22/18 09:12 Coreg PO Not Given BID KWAME Clopidogrel Bisulfate 75 mg 11/09/18 10:00 11/22/18 11:06 Plavix PO 75 mg QDAY KWAME Administration Diphenhydramine HCl 25 mg 11/14/18 15:08 Benadryl IV Q8H PRN Itching Famotidine 10 mg 11/08/18 23:00 11/22/18 11:07 Pepcid PO 10 mg BID KWAME Administration Heparin Sodium (Porcine) 5,000 unit 11/22/18 10:00 11/22/18 11:08 Heparin SUB-Q 5,000 unit Q12HR KWAME Administration Sodium Chloride 100 mls @ 999 mls/hr 11/08/18 18:14 Nacl 0.9% IV DWIGHT PRN Hypotension Meropenem 1,000 mg/ Sodium 100 mls @ 100 mls/hr 11/14/18 15:00 11/22/18 11:08 Chloride IV 11/22/18 23:59 100 mls/hr Q24HR KWAME Administration Sodium Chloride 1,000 mls @ 42 mls/hr 11/17/18 12:00 11/17/18 12:05 Nacl 0.9% 1000 Ml IV 42 mls/hr DIRECT KWAME Administration Loperamide HCl 2 mg 11/08/18 22:06 Imodium PO Q2H PRN Diarrhea Methadone HCl 10 mg 11/09/18 10:00 11/22/18 11:06 Dolophine PO 10 mg DAILY KWAME Administration Midodrine 10 mg 11/11/18 09:53 11/22/18 11:07 Proamatine PO 10 mg TID@0600,1200,1800 KWAME Administration Multivitamins 1 each 11/09/18 10:00 11/22/18 11:08 Theragran Tab PO 1 each QDAY KWAME Administration Ondansetron HCl 4 mg 11/19/18 22:13 Zofran IV Q8H PRN Nausea And Vomiting Oxycodone/Acetaminophen 1 tab 11/08/18 22:06 11/21/18 05:31 Percocet 5/325 PO 1 tab Q4H PRN Administration Pain, Moderate (4-6) Pentoxifylline 200 mg 11/14/18 13:00 11/22/18 11:07 Trental PO 200 mg DAILY KWAME Administration Pregabalin 25 mg 11/09/18 08:00 11/22/18 08:56 Lyrica PO 25 mg TID KWAME Administration Pregabalin 75 mg 11/09/18 08:00 11/22/18 08:55 Lyrica PO 75 mg TID KWAME Administration Promethazine HCl 25 mg 11/09/18 09:27 Phenergan PO Q4HR PRN N/V UNRELIEVED BY JESSICA Sevelamer Carbonate 4,000 mg 11/09/18 08:00 11/22/18 09:38 Renvela PO 4,000 mg TIDWM KWAME Administration Sodium Chloride 10 ml 11/09/18 10:00 11/22/18 11:08 Sodium Chloride Flush Syringe 10 Ml IV 10 ml BID KWAME Administration Sodium Chloride 10 ml 11/08/18 22:08 11/12/18 22:36 Sodium Chloride Flush Syringe 10 Ml IV 10 ml PRN PRN Administration LINE FLUSH Sodium Chloride 250 ml 11/10/18 13:00 11/21/18 23:03 Nacl 0.9% 250ml IV 250 ml DIRECT KWAME Administration Trazodone HCl 50 mg 11/09/18 10:00 11/22/18 11:06 Desyrel PO 50 mg BID KWAME Administration Zolpidem Tartrate 10 mg 11/08/18 22:06 11/14/18 21:09 Ambien PO 10 mg QHS PRN Administration Sleep
[2018-11-22] MEDS: PERCOCET 5/325 PO PRN (20:23)
[2018-11-23] MEDS: PROAMATINE PO SCH ×4 (05:40→18:35)
[2018-11-23 06:48] LABS: Calcium 10.1 mg/dL (8.4-10.2)
[2018-11-23] MEDS: LYRICA PO SCH ×6 (09:50→21:42)
[2018-11-23] MEDS: PERCOCET 5/325 PO PRN ×2 (09:50→18:39)
[2018-11-23] MEDS: XANAX PO PRN (09:50)
[2018-11-23] MEDS: RENVELA PO SCH ×3 (09:55→18:39)
[2018-11-23] MEDS: HEPARIN SUB-Q SCH ×2 (10:00→21:42)
--- NOTE | 2018-11-23 10:16 | Progress Note ---
Assessment and Plan Cultures: 11/08 BCx - ESBL Klebsiella 11/09 wound Cx - ESBL Klebsiella, Enterococcus 11/11 BCx- no growth A/P 53 yo M PMHx DM2, ESRD on HD, PVD, osteomyelitis of the L foot s/p partial 5th ray amputation on 11/03 admitted with new onset L foot pain. 1) wound infection - Wound culture grew ESBL Klebsiella and Enterococcus. s/p Angiography of the right lower extremity 11/14/18. s/p Debridement today of left foot wound. Left 4th toe and soft tissue along lateral foot now gangrenous. The left 4th MTP joint is also exposed and is partially disarticulated. S/P TMA of left 4th toe and debridement of necrotic bone (left 5th metatarsal bone) 11/17/18. Pathology reports clean margins achieved at surgery, antibiotic course complete. 2) ESBL Klebsiella Bacteremia - Will need 2 weeks of therapy. Order placed with case management. 3) Recent Hx of osteomyelitis - s/p partial 5th ray amputation; clean margins achieved by surgery. 4) PVD 5) ESRD on HD 6) DM2 Recs: pathology reports clean margins achieved at surgery, antibiotic course complete discontinue Meropenem follow-up ID clinic in 2 weeks (sent to internal consultant) follow-up outpatient wound clinic d/w Dr. Ashley Kraft, [facility] M: [id number] O:[phone] Subjective Date of service: 11/23/18 Principal diagnosis: ESRD on HD Interval history: Patient seen and examined. laying in bed receiving HD. Reports no acute pain. + generalized weakness . No fevers. Objective - Exam Narrative Exam: Constitutional: Awake. Alert. no acute distress Head, Ears, Nose: Normocephalic, atraumatic. External ears, nose normal Eyes: Conjunctivae/corneas clear. No icterus. No ptosis. Neck: Supple, no meningeal signs Oral: Poor dentition, moist mucous membranes Cardiovascular: S1, S2 normal. Normal rhythm Respiratory: Good air entry, clear to auscultation bilaterally GI: Soft, non-tender; bowel sounds normal. No peritoneal signs Musculoskeletal: No pedal edema, Skin:l left 4th toe and debridement of necrotic bone (left 5th metatarsal bone). + Dressing Hem/Lymphatic: No palpable cervical or supraclavicular nodes. No lymphangitis Psych: no agitation Neurological: Moves all extremities, no focal defects - Constitutional Vitals: Vital Signs Temp Pulse Resp BP Pulse Ox 98.4 F 75 16 98/77 100 11/23/18 05:14 11/23/18 05:14 11/23/18 05:14 11/23/18 05:14 11/23/18 05:14 Temperature -Last 24 Hours Temperature 98.4 F Temperature 97.6 F Temperature 97.9 F - Labs CBC & Chem 7: 11/22/18 06:55 11/23/18 06:14 Labs: Abnormal lab results 11/23/18 Range/Units 06:14 Sodium 135 L (137-145) mmol/L Potassium 5.6 H (3.6-5.0) mmol/L Chloride 88.7 L (98-107) mmol/L BUN 61 H (9-20) mg/dL Creatinine 11.4 H (0.8-1.5) mg/dL
--- NOTE | 2018-11-23 11:01 | Progress Note ---
Assessment and Plan ESRD on hemodialysis: -Hemodialysis today for UF and clearance. -Fluid restriction of 32 ounces per day -Renal/Dialysis diet -Obtain daily weights -Monitor I/O's -Assess dialysis needs daily -Possible discharge home today Left foot pain: -S/P Transmetatarsal amputation, left 5th toe on 11/03/18 -S/P debridement of left foot wound today on 11/15/18 -S/P TMA of left 4th toe and debridement of necrotic bone (left 5th metatarsal bone) on 11/17/18 -S/P IV Merrem 1 gram every 24 hour, to completed, end date was 11/22/18 per ID -Surgeon onboard Chronic Hypotension: -On Midodrine -Monitor BP Subjective Date of service: 11/23/18 Principal diagnosis: ESRD on HD Interval history: Patient seen lying in bed undergoing HD. Possible discharge home today. Objective - Vital Signs Vital signs: Vital Signs - 12hr 11/22/18 11/23/18 11/23/18 23:01 05:14 09:30 Temperature 98.4 F Pulse Rate 75 96 H Respiratory 16 Rate Blood Pressure 74/53 98/77 124/71 O2 Sat by Pulse 100 Oximetry 11/23/18 11/23/18 11/23/18 09:45 10:00 10:15 Temperature Pulse Rate 100 H 98 H 93 H Respiratory Rate Blood Pressure 93/66 106/66 100/54 O2 Sat by Pulse Oximetry 11/23/18 11/23/18 11/23/18 10:27 10:30 10:45 Temperature 98.2 F Pulse Rate 101 H 95 H 97 H Respiratory 20 Rate Blood Pressure 111/63 99/57 102/57 O2 Sat by Pulse Oximetry - General Appearance General appearance: well-developed, fatigue EENT: ATNC, PERRL, hearing intact, vision intact Neck: no JVD, supple Respiratory: Present: Decreased Breath Sounds Cardiology: S1S2 Gastrointestinal: normoactive bowel sounds Integumentary: warm and dry Neurologic: alert and oriented x3 Musculoskeletal: other (Dressing to left foot intact) - Lab 11/22/18 06:55 11/23/18 06:14 Most recent lab results Calcium 10.1 mg/dL (8.4-10.2) 11/23/18 06:14 Phosphorus 4.90 mg/dL (2.5-4.5) H 11/15/18 06:48 Medications & Allergies - Medications Allergies/Adverse Reactions: Allergies No Known Allergies Allergy (Verified 09/06/18 10:32) Home Medications: Home Medications Medication Instructions Recorded Confirmed Last Taken Type Phenergan TAB 25 tab PO PRN 07/21/18 11/08/18 11/07/18 History Varenicline Tartrate [Chantix] 1 mg PO DAILY 07/21/18 11/08/18 11/02/18 History Aspirin 325 mg PO QDAY #30 tablet 07/28/18 11/08/18 11/07/18 Rx Loperamide [Imodium] 2 mg PO Q2H PRN capsule 07/28/18 11/08/18 11/07/18 Rx Methadone [Dolophine] 10 mg PO DAILY #10 tablet 07/28/18 11/08/18 11/07/18 Rx Midodrine [Proamatine] 5 mg PO TID #90 tablet 07/28/18 11/08/18 11/07/18 Rx Multivitamin Tab [Multiple Vitamin 1 each PO QDAY #30 tablet 07/28/18 11/08/18 11/07/18 Rx TAB (Theragran)] Pregabalin [Lyrica] 100 mg PO TID #30 capsule 07/28/18 11/08/18 11/07/18 Rx Sevelamer Carbonate [Renvela] 4,000 mg PO TIDWM #30 tablet 07/28/18 11/08/18 11/07/18 Rx Zolpidem [Ambien] 10 mg PO QHS PRN #12 tablet 07/28/18 11/08/18 11/07/18 Rx ALPRAZolam [Xanax TAB] 2 mg PO TID PRN 10/20/18 11/08/18 11/07/18 History AtorvaSTATin [Lipitor] 40 mg PO QHS #30 tablet 10/21/18 11/08/18 11/07/18 Rx Carvedilol [Coreg] 3.125 mg PO BID tablet 10/21/18 11/08/18 11/07/18 Rx Clopidogrel [Plavix] 75 mg PO QDAY #30 tablet 10/21/18 11/08/18 11/07/18 Rx traZODone [Desyrel] 50 mg PO BID 07/11/08/18 11/07/18 History oxyCODONE /ACETAMINOPHEN [Percocet 1 tab PO Q4HR PRN #40 tab 11/03/18 11/08/18 11/07/18 Rx 5/325] Active Medications: Generic Name Dose Route Start Last Admin Trade Name Freq PRN Reason Stop Dose Admin Acetaminophen 650 mg 11/08/18 22:08 Tylenol PO Q4H PRN Pain MILD(1-3)/Fever >100.5/WEST Alprazolam 2 mg 11/08/18 22:06 11/23/18 09:50 Xanax PO 2 mg TID PRN Administration Anxiety Aspirin 325 mg 11/09/18 10:00 11/22/18 11:07 Aspirin PO 325 mg QDAY KWAME Administration Atorvastatin Calcium 40 mg 11/09/18 22:00 11/22/18 23:00 Lipitor PO 40 mg QHS KWAME Administration Carvedilol 3.125 mg 11/09/18 10:00 11/22/18 23:01 Coreg PO Not Given BID KWAME Clopidogrel Bisulfate 75 mg 11/09/18 10:00 11/22/18 11:06 Plavix PO 75 mg QDAY KWAME Administration Diphenhydramine HCl 25 mg 11/14/18 15:08 Benadryl IV Q8H PRN Itching Famotidine 10 mg 11/08/18 23:00 11/22/18 23:00 Pepcid PO 10 mg BID KWAME Administration Heparin Sodium (Porcine) 5,000 unit 11/22/18 10:00 11/22/18 23:00 Heparin SUB-Q 5,000 unit Q12HR KWAME Administration Sodium Chloride 100 mls @ 999 mls/hr 11/08/18 18:14 Nacl 0.9% IV DWIGHT PRN Hypotension Sodium Chloride 1,000 mls @ 42 mls/hr 11/17/18 12:00 11/17/18 12:05 Nacl 0.9% 1000 Ml IV 42 mls/hr DIRECT KWAME Administration Loperamide HCl 2 mg 11/08/18 22:06 Imodium PO Q2H PRN Diarrhea Methadone HCl 10 mg 11/09/18 10:00 11/22/18 11:06 Dolophine PO 10 mg DAILY KWAME Administration Midodrine 10 mg 11/11/18 09:53 11/23/18 05:40 Proamatine PO 10 mg TID@0600,1200,1800 KWAME Administration Multivitamins 1 each 11/09/18 10:00 11/22/18 11:08 Theragran Tab PO 1 each QDAY KWAME Administration Ondansetron HCl 4 mg 11/19/18 22:13 Zofran IV Q8H PRN Nausea And Vomiting Oxycodone/Acetaminophen 1 tab 11/08/18 22:06 11/23/18 09:50 Percocet 5/325 PO 1 tab Q4H PRN Administration Pain, Moderate (4-6) Pentoxifylline 200 mg 11/14/18 13:00 11/22/18 11:07 Trental PO 200 mg DAILY KWAME Administration Pregabalin 25 mg 11/09/18 08:00 11/23/18 09:50 Lyrica PO 25 mg TID KWAME Administration Pregabalin 75 mg 11/09/18 08:00 11/23/18 09:50 Lyrica PO 75 mg TID KWAME Administration Promethazine HCl 25 mg 11/09/18 09:27 Phenergan PO Q4HR PRN N/V UNRELIEVED BY JESSICA Sevelamer Carbonate 4,000 mg 11/09/18 08:00 11/23/18 09:55 Renvela PO 4,000 mg TIDWM KWAME Administration Sodium Chloride 10 ml 11/09/18 10:00 11/22/18 23:01 Sodium Chloride Flush Syringe 10 Ml IV 10 ml BID KWAME Administration Sodium Chloride 10 ml 11/08/18 22:08 11/12/18 22:36 Sodium Chloride Flush Syringe 10 Ml IV 10 ml PRN PRN Administration LINE FLUSH Sodium Chloride 250 ml 11/10/18 13:00 11/21/18 23:03 Nacl 0.9% 250ml IV 250 ml DIRECT KWAME Administration Trazodone HCl 50 mg 11/09/18 10:00 11/22/18 23:02 Desyrel PO Not Given BID KWAME Zolpidem Tartrate 10 mg 11/08/18 22:06 11/14/18 21:09 Ambien PO 10 mg QHS PRN Administration Sleep
[2018-11-23] MEDS ORDERED: MERREM 1,000 MG in NACL 0.9% 100 ML IV SCH (12:00)
--- NOTE | 2018-11-23 12:00 | Discharge Summary ---
Providers - Providers Date of Admission: 11/08/18 15:25 Date of discharge: 11/23/18 Attending physician: TREV CASTRO 11/08/18 15:15 Consult to Physician [CONS] Stat Comment: Consulting Provider: YURIDIA STEWART Physician Instructions: Reason For Exam: post operative infection 11/08/18 15:22 Consult to Physician [CONS] Stat Comment: Consulting Provider: NIRMALA ALVAREZ Physician Instructions: Reason For Exam: esrd 11/09/18 23:47 Consult to Physician [CONS] Routine Comment: Consulting Provider: THONG VARGAS Physician Instructions: Reason For Exam: + gram neg rods, lt foot infectionhx osteomyelitis 11/11/18 10:05 Consult to Physician [CONS] Urgent Comment: Consulting Provider: CAROLA FELIZ Physician Instructions: Reason For Exam: evaluate left foot 11/11/18 14:06 Midline [Consult to PICC Line RN] [CONS] Routine Reason For Exam: OPAT Type Line:: Midline 11/11/18 14:08 Consult to Case Management [CONS] Routine Services Needed at Discharge: Other Notified:: janes Additional Physician Instructions: [facility] M [phone] O [phone] F [phone] OUTPATIENT PARENTERAL ANTIBIOTIC THERAPY ORDERS Diagnoses: ESBL bacteremia, Wound - ESBL klebsiella, Enterococcus Antimicrobial administration: Anticipate discharge on meropenem 1 gm IV every 24 hours for total 2 weeks ending 11-22-18 Lines: Tunneled PICC Lab monitoring: CBC, ALT, AST, CRP , vancomycin trough once a week preferly on Wednesday morning. Please fax results to [phone] and call [phone] for critical lab results. Carolina Kraft NP/Shantanu Mehta Date: 11/11/18 11/14/18 13:44 Consult to Interventional Radiology [CONS] Routine Consulting Provider: CAROLA TEAGUE Reason For Exam: Tunneled PICC for OPAT Place consult to:: carola Teague Notified:: office Phone number called:: [phone] Was contact made?: Yes If yes, spoke with:: Time called:: 14:27 Comment:: Tara is aware 11/18/18 14:25 Physical Therapy Evaluation and Treat [CONS] Routine Comment: Reason For Exam: placement 11/21/18 07:52 Consult to Wound/ET Nurse [CONS] Routine Reason For Exam: wound eval Primary care physician: GUME COOPER Hospitalization Condition: Stable Disposition: [id number]/[place] Time spent for discharge: 32 min Core Measure Documentation - Palliative Care Palliative Care/ Comfort Measures: Not Applicable - Core Measures Any of the following diagnoses?: none Exam - Constitutional Vitals: Temp Pulse Resp BP Pulse Ox 98.2 F 96 H 20 98/51 100 11/23/18 10:27 11/23/18 11:00 11/23/18 10:27 11/23/18 11:00 11/23/18 05:14 General appearance: Present: no acute distress, well-nourished - EENT Eyes: Present: PERRL, EOM intact - Neck Neck: Present: supple, normal ROM - Respiratory Respiratory effort: normal Respiratory: negative: diminished, rales, rhonchi, wheezing - Cardiovascular Rhythm: regular Heart Sounds: Present: S1 & S2 - Extremities Extremities: No edema, abnormal (dressing in place) - Abdominal General gastrointestinal: Present: soft, non-tender, non-distended, normal bowel sounds - Integumentary Integumentary: Present: clear, warm - Musculoskeletal Musculoskeletal: strength equal bilaterally - Psychiatric Psychiatric: appropriate mood/affect, cooperative - Neurologic Neurologic: CNII-XII intact, moves all extremities Plan Activity: advance as tolerated, fall precautions Wound: per wound nurse instructions Additional Instructions: Outpatient wound care per schedule Follow up with: GUME COOPER MD [Primary Care Provider] - 7 Days YURIDIA STEWART MD [Staff Physician] - 7 Days SERA DAVALOS MD [Staff Physician] - 7 Days DEANNA ISLAS MD [Staff Physician] - 7 Days CAROLA FELIZ MD [Staff Physician] - 7 Days Prescriptions: oxyCODONE /ACETAMINOPHEN [Percocet 5/325 mg] 1 tab PO Q4HR PRN #20 tab PRN Reason: Pain, Moderate (4-6)
[2018-11-23] MEDS: COREG PO SCH ×2 (15:12→21:49)
[2018-11-23] MEDS: ASPIRIN PO SCH (15:16)
[2018-11-23] MEDS: PEPCID PO SCH ×2 (15:16→21:41)
[2018-11-23] MEDS: PLAVIX PO SCH (15:16)
[2018-11-23] MEDS: THERAGRAN Tab PO SCH (15:16)
[2018-11-23] MEDS: DOLOPHINE PO SCH (15:17)
[2018-11-23] MEDS: TRENTAL PO SCH (15:17)
[2018-11-23] MEDS: SODIUM CHLORIDE FLUSH SYRINGE 10 ML IV SCH ×2 (15:18→21:42)
[2018-11-23] MEDS: DESYREL PO SCH ×2 (15:18→21:41)
--- NOTE | 2018-11-23 17:52 | Progress Note ---
Assessment and Plan Assessment and plan: --ESBL bacteremia : Contact isolation IV antibiotics with meropenem, ID following, Continue Meropenem 1 gm IV every 24 hours for total 2 weeks ending 11/22/18 if no sign of osteo found on LLE from OR cx Path report clean margins, meropenem discontinued by ID --LEFT foot wound with positive ESBL wound cultures : Contact isolation, x-ray no osteomyelitis Presented with Lt Foot hematoma following amputation on 11/03: s/p incision and drainage on 11/09, 11/10, 11/15 antibiotics per ID, supportive care, ID following, Surgery following, s/p TMA of left 4th toe and debridement of necrotic bone (left 5th metatarsal bone) 11/17, if clear margin achieved then abx will need till 11/22/18 -follow-up OR cultures and pathology (obtained 11/17) --h/o Osteomyelitis of the L foot s/p partial 5th ray amputation on 11/03 with achievement of clean margin --Peripheral Vascular disease with non healing LLE ulcer; vascular following s/p CT Angiography of the left lower extremity with revascularization 11/14 --End Stage Renal disease on hemodialysis; Nephrology following, dialysis per schedule --Chronic hypotension; Closely monitor blood pressures, continue midodrine --DVT prophylaxis; Lovenox Disposition; continue inpatient management Medically stable, pending SNF placement, waiting for availability isolation room Plan of care is reviewed with the patient and his mom at the bedside History Interval history: Patient seen and examined medical records reviewed Patient was initially discharged to the SNF, however discharges held as they did not have isolation beds available. Patient has no new complaints Vital signs noted Hospitalist Physical - Constitutional Vitals: Temp Pulse Resp BP Pulse Ox 97.2 F L 101 H 18 113/62 100 11/23/18 13:15 11/23/18 13:15 11/23/18 13:15 11/23/18 15:12 11/23/18 05:14 General appearance: Present: no acute distress, well-nourished - EENT Eyes: Present: PERRL, EOM intact - Neck Neck: Present: supple, normal ROM - Respiratory Respiratory effort: normal Respiratory: bilateral: diminished, negative: rales, rhonchi, wheezing - Cardiovascular Rhythm: regular Heart Sounds: Present: S1 & S2 - Extremities Extremities: no ischemia, abnormal (left foot wound dressing in place) - Abdominal General gastrointestinal: soft, non-tender, non-distended, normal bowel sounds - Integumentary Integumentary: Present: clear, warm - Psychiatric Psychiatric: appropriate mood/affect, cooperative - Neurologic Neurologic: CNII-XII intact, moves all extremities Results - Labs CBC & Chem 7: 11/22/18 06:55 11/24/18 07:01 Labs: Laboratory Last Values WBC 10.8 K/mm3 (4.5-11.0) 11/22/18 06:55 RBC 3.47 M/mm3 (3.65-5.03) L 11/22/18 06:55 Hgb 10.5 gm/dl (11.8-15.2) L 11/22/18 06:55 POC Hgb 13.3 (12-17) 11/17/18 12:17 Hct 31.5 % (35.5-45.6) L 11/22/18 06:55 POC Hct 39 (38-51) 11/17/18 12:17 MCV 91 fl (84-94) 11/22/18 06:55 MCH 30 pg (28-32) 11/22/18 06:55 MCHC 33 % (32-34) 11/22/18 06:55 RDW 17.4 % (13.2-15.2) H 11/22/18 06:55 Plt Count 141 K/mm3 (140-440) 11/22/18 06:55 Lymph % (Auto) 12.1 % (13.4-35.0) L 11/22/18 06:55 [place] % (Auto) 11.8 % (0.0-7.3) H 11/22/18 06:55 Eos % (Auto) 2.2 % (0.0-4.3) 11/22/18 06:55 Baso % (Auto) 0.3 % (0.0-1.8) 11/22/18 06:55 Lymph # 1.3 K/mm3 (1.2-5.4) 11/22/18 06:55 [place] # 1.3 K/mm3 (0.0-0.8) H 11/22/18 06:55 Eos # 0.2 K/mm3 (0.0-0.4) 11/22/18 06:55 Baso # 0.0 K/mm3 (0.0-0.1) 11/22/18 06:55 Seg Neutrophils % 73.6 % (40.0-70.0) H 11/22/18 06:55 Seg Neutrophils # 8.0 K/mm3 (1.8-7.7) H 11/22/18 06:55 PT 15.7 Sec. (12.2-14.9) H 11/08/18 14:33 INR 1.28 (0.87-1.13) H 11/08/18 14:33 VBG pH 7.369 (7.320-7.420) 11/08/18 14:33 POC Sodium 139 mmol/L (138-146) 11/17/18 12:17 POC Potassium 5.1 (3.5-4.9) H 11/17/18 12:17 POC Chloride 105 (98-109) 11/17/18 12:17 Sodium 135 mmol/L (137-145) L 11/23/18 06:14 Potassium 5.6 mmol/L (3.6-5.0) H 11/23/18 06:14 Chloride 88.7 mmol/L (98-107) L 11/23/18 06:14 Carbon Dioxide 25 mmol/L (22-30) 11/23/18 06:14 27 mmol/L 11/23/18 06:14 POC BUN 47 mg/dl (8-26) H 11/17/18 12:17 BUN 61 mg/dL (9-20) H 11/23/18 06:14 11.4 mg/dL (0.8-1.5) H 11/23/18 06:14 Estimated GFR 6 ml/min 11/23/18 06:14 5 % 11/23/18 06:14 Glucose 91 mg/dL (75-100) 11/23/18 06:14 POC Glucose 96 (70-105) 11/17/18 14:03 5.1 % (4-6) 11/08/18 14:33 Lactic Acid 0.70 mmol/L (0.7-2.0) 11/08/18 17:38 Calcium 10.1 mg/dL (8.4-10.2) 11/23/18 06:14 Phosphorus 4.90 mg/dL (2.5-4.5) H 11/15/18 06:48 0.50 mg/dL (0.1-1.2) 11/08/18 14:33 AST 38 units/L (5-40) 11/08/18 14:33 ALT < 5 units/L (7-56) L 11/08/18 14:33 100 units/L (35-129) 11/08/18 14:33 9.0 g/dL (6.3-8.2) H 11/08/18 14:33 4.1 g/dL (3.9-5) 11/08/18 14:33 0.8 % 11/08/18 14:33 Random Vancomycin 16.0 ug/mL (0-40.0) 11/11/18 05:02 Active Medications - Current Medications Current Medications: Generic Name Dose Route Start Last Admin Trade Name Freq PRN Reason Stop Dose Admin Acetaminophen 650 mg 11/08/18 22:08 Tylenol PO Q4H PRN Pain MILD(1-3)/Fever >100.5/WEST Alprazolam 2 mg 11/08/18 22:06 11/23/18 09:50 Xanax PO 2 mg TID PRN Administration Anxiety Aspirin 325 mg 11/09/18 10:00 11/23/18 15:16 Aspirin PO 325 mg QDAY KWAME Administration Atorvastatin Calcium 40 mg 11/09/18 22:00 11/22/18 23:00 Lipitor PO 40 mg QHS KWAME Administration Carvedilol 3.125 mg 11/09/18 10:00 11/23/18 15:12 Coreg PO Not Given BID KWAME Clopidogrel Bisulfate 75 mg 11/09/18 10:00 11/23/18 15:16 Plavix PO 75 mg QDAY KWAME Administration Diphenhydramine HCl 25 mg 11/14/18 15:08 Benadryl IV Q8H PRN Itching Famotidine 10 mg 11/08/18 23:00 11/23/18 15:16 Pepcid PO 10 mg BID KWAME Administration Heparin Sodium (Porcine) 5,000 unit 11/22/18 10:00 11/23/18 10:00 Heparin SUB-Q Not Given Q12HR KWAME Sodium Chloride 100 mls @ 999 mls/hr 11/08/18 18:14 Nacl 0.9% IV DWIGHT PRN Hypotension Sodium Chloride 1,000 mls @ 42 mls/hr 11/17/18 12:00 11/17/18 12:05 Nacl 0.9% 1000 Ml IV 42 mls/hr DIRECT KWAME Administration Loperamide HCl 2 mg 11/08/18 22:06 Imodium PO Q2H PRN Diarrhea Methadone HCl 10 mg 11/09/18 10:00 11/23/18 15:17 Dolophine PO 10 mg DAILY KWAME Administration Midodrine 10 mg 11/11/18 09:53 11/23/18 15:16 Proamatine PO 10 mg TID@0600,1200,1800 KWAME Administration Multivitamins 1 each 11/09/18 10:00 11/23/18 15:16 Theragran Tab PO 1 each QDAY KWAME Administration Ondansetron HCl 4 mg 11/19/18 22:13 Zofran IV Q8H PRN Nausea And Vomiting Oxycodone/Acetaminophen 1 tab 11/08/18 22:06 11/23/18 09:50 Percocet 5/325 PO 1 tab Q4H PRN Administration Pain, Moderate (4-6) Pentoxifylline 200 mg 11/14/18 13:00 11/23/18 15:17 Trental PO 200 mg DAILY KWAME Administration Pregabalin 25 mg 11/09/18 08:00 11/23/18 15:17 Lyrica PO 25 mg TID KWAME Administration Pregabalin 75 mg 11/09/18 08:00 11/23/18 15:18 Lyrica PO 75 mg TID KWAME Administration Promethazine HCl 25 mg 11/09/18 09:27 Phenergan PO Q4HR PRN N/V UNRELIEVED BY JESSICA Sevelamer Carbonate 4,000 mg 11/09/18 08:00 11/23/18 15:14 Renvela PO Not Given TIDWM KWAME Sodium Chloride 10 ml 11/09/18 10:00 11/23/18 15:18 Sodium Chloride Flush Syringe 10 Ml IV 10 ml BID KWAME Administration Sodium Chloride 10 ml 11/08/18 22:08 11/12/18 22:36 Sodium Chloride Flush Syringe 10 Ml IV 10 ml PRN PRN Administration LINE FLUSH Sodium Chloride 250 ml 11/10/18 13:00 11/21/18 23:03 Nacl 0.9% 250ml IV 250 ml DIRECT KWAME Administration Trazodone HCl 50 mg 11/09/18 10:00 11/23/18 15:18 Desyrel PO 50 mg BID KWAME Administration Zolpidem Tartrate 10 mg 11/08/18 22:06 11/14/18 21:09 Ambien PO 10 mg QHS PRN Administration Sleep Nutrition/Malnutrition Assess - Dietary Evaluation Nutrition/Malnutrition Findings: Nutrition Notes Start: 11/15/18 13:06 Freq: Status: Active Protocol: Document 11/23/18 16:12 RM (Rec: 11/23/18 16:20 RM [id number]) Nutrition Notes Initial or Follow up Reassessment Current Diagnosis CKD (stage V CKD),Decubitus( Pressure Ulcer),Diabetes, Hypertension Other Pertinent Diagnosis foot wound, On HD Current Diet Renal w/Ensure Clear Mixed Soler BID Labs/Tests Reviewed Pertinent Medications Reviewed Height 6 ft 1 in Weight 86.6 kg [place] Body Weight (kg) 83.63 BMI 25.2 Subjective/Other Information Pt asleep during HD session at time of visit. Per nurse pt does not eat facility meals but eats the food his mother brings in. Tech and nurse unsure whether pt has been drinking Ensure Clear. Burn Absent Trauma Absent #2 Nutrition Diagnosis Increased nutrient needs ( specify in comment below) Diagnosis Progress(for reassessment Continues documentation) #1 Nutrition Diagnosis Inadequate oral intake Diagnosis Progress(for reassessment Resolved documentation) Is patient on ventilator? No Is Patient Ambulatory and/or Out of Bed Yes REE-([facility]-ambulatory/OOB) [ 4727.344 NUTR.MSJOOB] Calculation Used for Recommendations [facility] Additional Notes Protein needs are 101-118g (1. 2-1.4g/kg) Fluid needs are 1ml/kcal Nutrition Intervention Change Diet Order: Renal Add Supplement/Snack (indicate name/kcal Ensure Clear BID /protein ) Provides kCal: 440 Provides Protein (gm) 16 Goal #1 Continue to meet at least 75% of kcal and protein needs via PO and ONS intakes Goal #2 Wound healing Anticipated Discharge Needs: Renal consistent CHO Nepro soler BID Follow-Up By: 11/28/18 Additional Comments Follow for PO and ONS intakes
[2018-11-24] MEDS: PROAMATINE PO SCH ×3 (05:29→21:29)
[2018-11-24 07:25] LABS: Calcium 9.8 mg/dL (8.4-10.2)
[2018-11-24] MEDS: PERCOCET 5/325 PO PRN ×2 (08:29→21:31)
[2018-11-24] MEDS: RENVELA PO SCH ×3 (08:30→18:59)
[2018-11-24] MEDS: LYRICA PO SCH ×4 (08:30→18:59)
--- NOTE | 2018-11-24 09:20 | Progress Note ---
Assessment and Plan Cultures: 11/08 BCx - ESBL Klebsiella 11/09 wound Cx - ESBL Klebsiella, Enterococcus 11/11 BCx- no growth A/P 53 yo M PMHx DM2, ESRD on HD, PVD, osteomyelitis of the L foot s/p partial 5th ray amputation on 11/03 admitted with new onset L foot pain. 1) wound infection - Wound culture grew ESBL Klebsiella and Enterococcus. s/p Angiography of the right lower extremity 11/14/18. s/p Debridement today of left foot wound. Left 4th toe and soft tissue along lateral foot now gangrenous. The left 4th MTP joint is also exposed and is partially disarticulated. S/P TMA of left 4th toe and debridement of necrotic bone (left 5th metatarsal bone) 11/17/18. Pathology reports clean margins achieved at surgery, antibiotic course complete. 2) ESBL Klebsiella Bacteremia - Will need 2 weeks of therapy. Order placed with case management. 3) Recent Hx of osteomyelitis - s/p partial 5th ray amputation; clean margins achieved by surgery. 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 Sitting up on the side of the bed. Reports not acute distress. No fevers. Objective - Exam Narrative Exam: Constitutional: Awake. Alert. no acute distress Head, Ears, Nose: Normocephalic, atraumatic. External ears, nose normal Eyes: Conjunctivae/corneas clear. No icterus. No ptosis. Neck: Supple, no meningeal signs Oral: Poor dentition, moist mucous membranes Cardiovascular: S1, S2 normal. Normal rhythm Respiratory: Good air entry, clear to auscultation bilaterally GI: Soft, non-tender; bowel sounds normal. No peritoneal signs Musculoskeletal: No pedal edema, Skin:l left 4th toe and debridement of necrotic bone (left 5th metatarsal bone). + Dressing Hem/Lymphatic: No palpable cervical or supraclavicular nodes. No lymphangitis Psych: no agitation Neurological: Moves all extremities, no focal defects - Constitutional Vitals: Vital Signs Temp Pulse Resp BP Pulse Ox 98.4 F 99 H 20 148/118 95 11/24/18 05:31 11/24/18 05:31 11/24/18 05:31 11/24/18 05:31 11/24/18 05:31 Temperature -Last 24 Hours Temperature 98.4 F Temperature 98.8 F Temperature 98.1 F Temperature 97.2 F Temperature 98.2 F - Labs CBC & Chem 7: 11/22/18 06:55 11/24/18 07:01 Labs: Abnormal lab results 11/24/18 Range/Units 07:01 Sodium 135 L (137-145) mmol/L Potassium 5.9 H (3.6-5.0) mmol/L Chloride 92.1 L (98-107) mmol/L BUN 43 H (9-20) mg/dL Creatinine 8.7 H (0.8-1.5) mg/dL
--- NOTE | 2018-11-24 09:41 | Progress Note ---
Assessment and Plan Assessment and plan: --Brief Episodes of confusion/metabolic encephalopathy; Patient and the mother feel that methadone and Lyrica may be causing Mild intermittent jerky movements and confusion Methadone and Lyrica are DC'd as requested by the patient and his mother --ESBL bacteremia : Contact isolation IV antibiotics with meropenem, ID following, Treated total 2 weeks of Meropenem 1 gm IV every 24 hours ending 11/22/18 Pathology report , clear margins --LEFT foot wound with positive ESBL wound cultures : Contact isolation, x-ray no osteomyelitis Presented with Lt Foot hematoma following amputation on 11/03: s/p incision and drainage on 11/09, 11/10, 11/15 cont IV antibiotics, supportive care, ID following, Surgery following, s/p TMA of left 4th toe and debridement of necrotic bone (left 5th metatarsal bone) 11/17, if clear margin achieved then abx will need till 11/22/18 -follow-up OR cultures and pathology (obtained 11/17) Pathology reports clean margins achieved at surgery, antibiotic course complete. --h/o Osteomyelitis of the L foot s/p partial 5th ray amputation on 11/03 with achievement of clean margin --Peripheral Vascular disease with non healing LLE ulcer; vascular following s/p CT Angiography of the left lower extremity with revascularization 11/14 --End Stage Renal disease on hemodialysis; Nephrology following, dialysis per schedule --Chronic hypotension; Closely monitor blood pressures, continue midodrine --DVT prophylaxis; Lovenox Disposition; continue inpatient management . Medically stable for discharge Awaiting SNF placement when isolated room is available Brief History: 53 yo M PMHx DM2, ESRD on HD, PVD, osteomyelitis of the L foot s/p partial 5th ray amputation on 11/03 admitted with new onset L foot pain. The pain began 5 days prior to admission in roughly the same area as the recent surgery. He notes some associated drainage at the site and surrounding redness, some low grade fevers at home but denies sweats or chills. Patient was evaluated by surgery underwent incision and drainage inside and debridement of left foot hematoma on 11/10 and 11/09. Vascular evaluated the patient and s/p CT angiography and revascularization on 11/14, s/p amputation and I and D on 11/17. follow-up OR cultures and pathology - if cx negative then cont meropenem till 11/22 - need ANGEL on d/c Patient on contact isolation secondary to ESBL wound and bacteremia. Awaiting SNF placement with isolation room History Interval history: Patient seen and examined medical records reviewed Today patient is confused both patient and mother think that methadone and Lyrica are causing the symptoms, requested to discontinue those home medications We will DC methadone and Lyrica and closely monitor Patient also has some back pain Alert awake oriented Vital signs noted Hospitalist Physical - Constitutional Vitals: Temp Pulse Resp BP Pulse Ox 98.4 F 99 H 20 148/118 95 11/24/18 05:31 11/24/18 05:31 11/24/18 05:31 11/24/18 05:31 11/24/18 05:31 General appearance: Present: no acute distress, cachectic - EENT Eyes: Present: PERRL, EOM intact - Neck Neck: Present: supple, normal ROM - Respiratory Respiratory effort: normal Respiratory: bilateral: diminished, negative: rales, rhonchi, wheezing - Cardiovascular Rhythm: regular Heart Sounds: Present: S1 & S2 - Extremities Extremities: no ischemia, abnormal (left foot wound dressing in place) - Abdominal General gastrointestinal: soft, non-tender, non-distended, normal bowel sounds - Integumentary Integumentary: Present: clear, warm - Psychiatric Psychiatric: appropriate mood/affect, cooperative - Neurologic Neurologic: moves all extremities Results - Labs CBC & Chem 7: 11/22/18 06:55 11/24/18 07:01 Labs: Laboratory Last Values WBC 10.8 K/mm3 (4.5-11.0) 11/22/18 06:55 RBC 3.47 M/mm3 (3.65-5.03) L 11/22/18 06:55 Hgb 10.5 gm/dl (11.8-15.2) L 11/22/18 06:55 POC Hgb 13.3 (12-17) 11/17/18 12:17 Hct 31.5 % (35.5-45.6) L 11/22/18 06:55 POC Hct 39 (38-51) 11/17/18 12:17 MCV 91 fl (84-94) 11/22/18 06:55 MCH 30 pg (28-32) 11/22/18 06:55 MCHC 33 % (32-34) 11/22/18 06:55 RDW 17.4 % (13.2-15.2) H 11/22/18 06:55 Plt Count 141 K/mm3 (140-440) 11/22/18 06:55 Lymph % (Auto) 12.1 % (13.4-35.0) L 11/22/18 06:55 [place] % (Auto) 11.8 % (0.0-7.3) H 11/22/18 06:55 Eos % (Auto) 2.2 % (0.0-4.3) 11/22/18 06:55 Baso % (Auto) 0.3 % (0.0-1.8) 11/22/18 06:55 Lymph # 1.3 K/mm3 (1.2-5.4) 11/22/18 06:55 [place] # 1.3 K/mm3 (0.0-0.8) H 11/22/18 06:55 Eos # 0.2 K/mm3 (0.0-0.4) 11/22/18 06:55 Baso # 0.0 K/mm3 (0.0-0.1) 11/22/18 06:55 Seg Neutrophils % 73.6 % (40.0-70.0) H 11/22/18 06:55 Seg Neutrophils # 8.0 K/mm3 (1.8-7.7) H 11/22/18 06:55 PT 15.7 Sec. (12.2-14.9) H 11/08/18 14:33 INR 1.28 (0.87-1.13) H 11/08/18 14:33 VBG pH 7.369 (7.320-7.420) 11/08/18 14:33 POC Sodium 139 mmol/L (138-146) 11/17/18 12:17 POC Potassium 5.1 (3.5-4.9) H 11/17/18 12:17 POC Chloride 105 (98-109) 11/17/18 12:17 Sodium 135 mmol/L (137-145) L 11/24/18 07:01 Potassium 5.9 mmol/L (3.6-5.0) H 11/24/18 07:01 Chloride 92.1 mmol/L (98-107) L 11/24/18 07:01 Carbon Dioxide 27 mmol/L (22-30) 11/24/18 07:01 22 mmol/L 11/24/18 07:01 POC BUN 47 mg/dl (8-26) H 11/17/18 12:17 BUN 43 mg/dL (9-20) H 11/24/18 07:01 8.7 mg/dL (0.8-1.5) H 11/24/18 07:01 Estimated GFR 8 ml/min 11/24/18 07:01 5 % 11/24/18 07:01 Glucose 92 mg/dL (75-100) 11/24/18 07:01 POC Glucose 96 (70-105) 11/17/18 14:03 5.1 % (4-6) 11/08/18 14:33 Lactic Acid 0.70 mmol/L (0.7-2.0) 11/08/18 17:38 Calcium 9.8 mg/dL (8.4-10.2) 11/24/18 07:01 Phosphorus 4.90 mg/dL (2.5-4.5) H 11/15/18 06:48 0.50 mg/dL (0.1-1.2) 11/08/18 14:33 AST 38 units/L (5-40) 11/08/18 14:33 ALT < 5 units/L (7-56) L 11/08/18 14:33 100 units/L (35-129) 11/08/18 14:33 9.0 g/dL (6.3-8.2) H 11/08/18 14:33 4.1 g/dL (3.9-5) 11/08/18 14:33 0.8 % 11/08/18 14:33 Random Vancomycin 16.0 ug/mL (0-40.0) 11/11/18 05:02 Active Medications - Current Medications Current Medications: Generic Name Dose Route Start Last Admin Trade Name Freq PRN Reason Stop Dose Admin Acetaminophen 650 mg 11/08/18 22:08 Tylenol PO Q4H PRN Pain MILD(1-3)/Fever >100.5/WEST Alprazolam 2 mg 11/08/18 22:06 11/23/18 09:50 Xanax PO 2 mg TID PRN Administration Anxiety Aspirin 325 mg 11/09/18 10:00 11/23/18 15:16 Aspirin PO 325 mg QDAY KWAME Administration Atorvastatin Calcium 40 mg 11/09/18 22:00 11/23/18 21:44 Lipitor PO 40 mg QHS KWAME Administration Carvedilol 3.125 mg 11/09/18 10:00 11/23/18 21:49 Coreg PO Not Given BID KWAME Clopidogrel Bisulfate 75 mg 11/09/18 10:00 11/23/18 15:16 Plavix PO 75 mg QDAY KWAME Administration Diphenhydramine HCl 25 mg 11/14/18 15:08 Benadryl IV Q8H PRN Itching Famotidine 10 mg 11/08/18 23:00 11/23/18 21:41 Pepcid PO 10 mg BID KWAME Administration Heparin Sodium (Porcine) 5,000 unit 11/22/18 10:00 11/23/18 21:42 Heparin SUB-Q 5,000 unit Q12HR KWAME Administration Sodium Chloride 100 mls @ 999 mls/hr 11/08/18 18:14 Nacl 0.9% IV DWIGHT PRN Hypotension Sodium Chloride 1,000 mls @ 42 mls/hr 11/17/18 12:00 11/17/18 12:05 Nacl 0.9% 1000 Ml IV 42 mls/hr DIRECT KWAME Administration Loperamide HCl 2 mg 11/08/18 22:06 Imodium PO Q2H PRN Diarrhea Methadone HCl 10 mg 11/09/18 10:00 11/23/18 15:17 Dolophine PO 10 mg DAILY KWAME Administration Midodrine 10 mg 11/11/18 09:53 11/24/18 05:29 Proamatine PO 10 mg TID@0600,1200,1800 KWAME Administration Multivitamins 1 each 11/09/18 10:00 11/23/18 15:16 Theragran Tab PO 1 each QDAY KWAME Administration Ondansetron HCl 4 mg 11/19/18 22:13 Zofran IV Q8H PRN Nausea And Vomiting Oxycodone/Acetaminophen 1 tab 11/08/18 22:06 11/24/18 08:29 Percocet 5/325 PO 1 tab Q4H PRN Administration Pain, Moderate (4-6) Pentoxifylline 200 mg 11/14/18 13:00 11/23/18 15:17 Trental PO 200 mg DAILY KWAME Administration Pregabalin 25 mg 11/09/18 08:00 11/24/18 08:30 Lyrica PO 25 mg TID KWAME Administration Pregabalin 75 mg 11/09/18 08:00 11/24/18 08:30 Lyrica PO 75 mg TID KWAME Administration Promethazine HCl 25 mg 11/09/18 09:27 Phenergan PO Q4HR PRN N/V UNRELIEVED BY JESSICA Sevelamer Carbonate 4,000 mg 11/09/18 08:00 11/24/18 08:30 Renvela PO 4,000 mg TIDWM KWAME Administration Sodium Chloride 10 ml 11/09/18 10:00 11/23/18 21:42 Sodium Chloride Flush Syringe 10 Ml IV 10 ml BID KWAME Administration Sodium Chloride 10 ml 11/08/18 22:08 11/12/18 22:36 Sodium Chloride Flush Syringe 10 Ml IV 10 ml PRN PRN Administration LINE FLUSH Sodium Chloride 250 ml 11/10/18 13:00 11/21/18 23:03 Nacl 0.9% 250ml IV 250 ml DIRECT KWAME Administration Trazodone HCl 50 mg 11/09/18 10:00 11/23/18 21:41 Desyrel PO 50 mg BID KWAME Administration Zolpidem Tartrate 10 mg 11/08/18 22:06 11/14/18 21:09 Ambien PO 10 mg QHS PRN Administration Sleep Nutrition/Malnutrition Assess - Dietary Evaluation Nutrition/Malnutrition Findings: Nutrition Notes Start: 11/15/18 13:06 Freq: Status: Active Protocol: Document 11/23/18 16:12 RM (Rec: 11/23/18 16:20 RM [id number]) Nutrition Notes Initial or Follow up Reassessment Current Diagnosis CKD (stage V CKD),Decubitus( Pressure Ulcer),Diabetes, Hypertension Other Pertinent Diagnosis foot wound, On HD Current Diet Renal w/Ensure Clear Mixed Soler BID Labs/Tests Reviewed Pertinent Medications Reviewed Height 6 ft 1 in Weight 86.6 kg [place] Body Weight (kg) 83.63 BMI 25.2 Subjective/Other Information Pt asleep during HD session at time of visit. Per nurse pt does not eat facility meals but eats the food his mother brings in. Tech and nurse unsure whether pt has been drinking Ensure Clear. Burn Absent Trauma Absent #2 Nutrition Diagnosis Increased nutrient needs ( specify in comment below) Diagnosis Progress(for reassessment Continues documentation) #1 Nutrition Diagnosis Inadequate oral intake Diagnosis Progress(for reassessment Resolved documentation) Is patient on ventilator? No Is Patient Ambulatory and/or Out of Bed Yes REE-([facility]-ambulatory/OOB) [ 2307.344 NUTR.[id number]] Calculation Used for Recommendations [facility] Additional Notes Protein needs are 101-118g (1. 2-1.4g/kg) Fluid needs are 1ml/kcal Nutrition Intervention Change Diet Order: Renal Add Supplement/Snack (indicate name/kcal Ensure Clear BID /protein ) Provides kCal: 440 Provides Protein (gm) 16 Goal #1 Continue to meet at least 75% of kcal and protein needs via PO and ONS intakes Goal #2 Wound healing Anticipated Discharge Needs: Renal consistent CHO Nepro soler BID Follow-Up By: 11/28/18 Additional Comments Follow for PO and ONS intakes
[2018-11-24] MEDS: PLAVIX PO SCH (10:11)
[2018-11-24] MEDS: PEPCID PO SCH ×2 (10:12→21:30)
[2018-11-24] MEDS: TRENTAL PO SCH (10:12)
[2018-11-24] MEDS: SODIUM CHLORIDE FLUSH SYRINGE 10 ML IV SCH ×2 (10:12→21:32)
[2018-11-24] MEDS: THERAGRAN Tab PO SCH (10:13)
[2018-11-24] MEDS: ASPIRIN PO SCH (10:13)
[2018-11-24] MEDS: DESYREL PO SCH ×2 (10:14→21:30)
[2018-11-24] MEDS: HEPARIN SUB-Q SCH ×2 (10:14→21:31)
--- NOTE | 2018-11-24 10:34 | Progress Note ---
Assessment and Plan ESRD on hemodialysis: -HD again for 2 hours with 1K bath for hyperkalemia -Fluid restriction of 32 ounces per day -Renal/Dialysis diet -Obtain daily weights -Monitor I/O's -Assess dialysis needs daily -Possible discharge home today Left foot pain: -S/P Transmetatarsal amputation, left 5th toe on 11/03/18 -S/P debridement of left foot wound today on 11/15/18 -S/P TMA of left 4th toe and debridement of necrotic bone (left 5th metatarsal bone) on 11/17/18 -S/P IV Merrem 1 gram every 24 hour, to completed, end date was 11/22/18 per ID -Surgeon onboard Chronic Hypotension: -On Midodrine -Monitor BP Subjective Date of service: 11/24/18 Principal diagnosis: ESRD on HD Interval history: tolerated HD well yesterday Objective - Vital Signs Vital signs: Vital Signs - 12hr 11/24/18 11/24/18 00:55 05:31 Temperature 98.8 F 98.4 F Pulse Rate 72 99 H Respiratory 20 20 Rate Blood Pressure 121/103 148/118 O2 Sat by Pulse 87 95 Oximetry - General Appearance General appearance: well-developed, well-nourished, appears stated age EENT: ATNC, PERRL, mucous membranes moist Neck: no JVD, no carotid bruit Respiratory: Present: Clear to Ascultation. Absent: Rales, Ronchi Cardiology: regular, S1S2 Gastrointestinal: normoactive bowel sounds, no tenderness, no distended Integumentary: no rash, warm and dry Neurologic: no focal deficit, no asterixis, alert and oriented x3 Musculoskeletal: other (no edema in BLE) Psychiatric: mood/affect appropriate, cooperative - Lab 11/22/18 06:55 11/24/18 07:01 Most recent lab results Calcium 9.8 mg/dL (8.4-10.2) 11/24/18 07:01 Phosphorus 4.90 mg/dL (2.5-4.5) H 11/15/18 06:48 Medications & Allergies - Medications Allergies/Adverse Reactions: Allergies No Known Allergies Allergy (Verified 09/06/18 10:32) Home Medications: Home Medications Medication Instructions Recorded Confirmed Last Taken Type Aspirin 325 mg PO QDAY #30 tablet 07/28/18 11/08/18 11/07/18 Rx Loperamide [Imodium] 2 mg PO Q2H PRN capsule 07/28/18 11/08/18 11/07/18 Rx Methadone [Dolophine] 10 mg PO DAILY #10 tablet 07/28/18 11/08/18 11/07/18 Rx Midodrine [Proamatine] 5 mg PO TID #90 tablet 07/28/18 11/08/18 11/07/18 Rx Multivitamin Tab [Multiple Vitamin 1 each PO QDAY #30 tablet 07/28/18 11/08/18 11/07/18 Rx TAB (Theragran)] Pregabalin [Lyrica] 100 mg PO TID #30 capsule 07/28/18 11/08/18 11/07/18 Rx Sevelamer Carbonate [Renvela] 4,000 mg PO TIDWM #30 tablet 07/28/18 11/08/18 11/07/18 Rx AtorvaSTATin [Lipitor] 40 mg PO QHS #30 tablet 10/21/18 11/08/18 11/07/18 Rx Carvedilol [Coreg] 3.125 mg PO BID tablet 10/21/18 11/08/18 11/07/18 Rx Clopidogrel [Plavix] 75 mg PO QDAY #30 tablet 10/21/18 11/08/18 11/07/18 Rx traZODone [Desyrel] 50 mg PO BID 10/31/18 11/08/18 11/07/18 History Famotidine [Pepcid] 10 mg PO BID tablet 11/23/18 Unknown Rx Pentoxifylline [TRENtal] 200 mg PO DAILY tablet 11/23/18 Unknown Rx Pregabalin [Lyrica] 75 mg PO TID capsule 11/23/18 Unknown Rx oxyCODONE /ACETAMINOPHEN [Percocet 1 tab PO Q4HR PRN #20 tab 11/23/18 Unknown Rx 5/325 mg] Active Medications: Generic Name Dose Route Start Last Admin Trade Name Freq PRN Reason Stop Dose Admin Acetaminophen 650 mg 11/08/18 22:08 Tylenol PO Q4H PRN Pain MILD(1-3)/Fever >100.5/WEST Alprazolam 2 mg 11/08/18 22:06 11/23/18 09:50 Xanax PO 2 mg TID PRN Administration Anxiety Aspirin 325 mg 11/09/18 10:00 11/24/18 10:13 Aspirin PO 325 mg QDAY KWAME Administration Atorvastatin Calcium 40 mg 11/09/18 22:00 11/23/18 21:44 Lipitor PO 40 mg QHS KWAME Administration Carvedilol 3.125 mg 11/09/18 10:00 11/23/18 21:49 Coreg PO Not Given BID KWAME Clopidogrel Bisulfate 75 mg 11/09/18 10:00 11/24/18 10:11 Plavix PO 75 mg QDAY KWAME Administration Diphenhydramine HCl 25 mg 11/14/18 15:08 Benadryl IV Q8H PRN Itching Famotidine 10 mg 11/08/18 23:00 11/24/18 10:12 Pepcid PO 10 mg BID KWAME Administration Heparin Sodium (Porcine) 5,000 unit 11/22/18 10:00 11/24/18 10:14 Heparin SUB-Q 5,000 unit Q12HR KWAME Administration Sodium Chloride 100 mls @ 999 mls/hr 11/08/18 18:14 Nacl 0.9% IV DWIGHT PRN Hypotension Sodium Chloride 1,000 mls @ 42 mls/hr 11/17/18 12:00 11/17/18 12:05 Nacl 0.9% 1000 Ml IV 42 mls/hr DIRECT KWAME Administration Loperamide HCl 2 mg 11/08/18 22:06 Imodium PO Q2H PRN Diarrhea Methadone HCl 10 mg 11/09/18 10:00 11/23/18 15:17 Dolophine PO 10 mg DAILY KWAME Administration Midodrine 10 mg 11/11/18 09:53 11/24/18 05:29 Proamatine PO 10 mg TID@0600,1200,1800 KWAME Administration Multivitamins 1 each 11/09/18 10:00 11/24/18 10:13 Theragran Tab PO 1 each QDAY KWAME Administration Ondansetron HCl 4 mg 11/19/18 22:13 Zofran IV Q8H PRN Nausea And Vomiting Oxycodone/Acetaminophen 1 tab 11/08/18 22:06 11/24/18 08:29 Percocet 5/325 PO 1 tab Q4H PRN Administration Pain, Moderate (4-6) Pentoxifylline 200 mg 11/14/18 13:00 11/24/18 10:12 Trental PO 200 mg DAILY KWAME Administration Pregabalin 25 mg 11/09/18 08:00 11/24/18 08:30 Lyrica PO 25 mg TID KWAME Administration Pregabalin 75 mg 11/09/18 08:00 11/24/18 08:30 Lyrica PO 75 mg TID KWAME Administration Promethazine HCl 25 mg 11/09/18 09:27 Phenergan PO Q4HR PRN N/V UNRELIEVED BY JESSICA Guelamer Carbonate 4,000 mg 11/09/18 08:00 11/24/18 08:30 Renvela PO 4,000 mg TIDWM KWAME Administration Sodium Chloride 10 ml 11/09/18 10:00 11/24/18 10:12 Sodium Chloride Flush Syringe 10 Ml IV 10 ml BID KWAME Administration Sodium Chloride 10 ml 11/08/18 22:08 11/12/18 22:36 Sodium Chloride Flush Syringe 10 Ml IV 10 ml PRN PRN Administration LINE FLUSH Sodium Chloride 250 ml 11/10/18 13:00 11/21/18 23:03 Nacl 0.9% 250ml IV 250 ml DIRECT KWAME Administration Trazodone HCl 50 mg 11/09/18 10:00 11/24/18 10:14 Desyrel PO 50 mg BID KWAME Administration Zolpidem Tartrate 10 mg 11/08/18 22:06 11/14/18 21:09 Ambien PO 10 mg QHS PRN Administration Sleep
[2018-11-24] MEDS: COREG PO SCH ×2 (13:08→21:31)
[2018-11-24] MEDS: DOLOPHINE PO SCH (13:10)
[2018-11-25] MEDS: PROAMATINE PO SCH ×3 (05:31→18:37)
[2018-11-25 07:11] LABS: Calcium 9.8 mg/dL (8.4-10.2)
[2018-11-25] MEDS: RENVELA PO SCH ×3 (09:23→18:37)
[2018-11-25] MEDS: PLAVIX PO SCH (11:03)
[2018-11-25] MEDS: PEPCID PO SCH ×2 (11:03→22:23)
[2018-11-25] MEDS: DESYREL PO SCH ×2 (11:04→22:22)
[2018-11-25] MEDS: TRENTAL PO SCH (11:04)
[2018-11-25] MEDS: ASPIRIN PO SCH (11:04)
[2018-11-25] MEDS: THERAGRAN Tab PO SCH (11:04)
[2018-11-25] MEDS: HEPARIN SUB-Q SCH ×2 (11:06→22:23)
[2018-11-25] MEDS: SODIUM CHLORIDE FLUSH SYRINGE 10 ML IV SCH ×2 (11:12→22:24)
[2018-11-25] MEDS: COREG PO SCH ×2 (11:12→22:23)
--- NOTE | 2018-11-25 13:01 | Progress Note ---
Assessment and Plan / Brief Episodes of confusion/metabolic encephalopathy; resolved Patient and the mother feel that methadone and Lyrica may be causing Mild intermittent jerky movements and confusion Methadone and Lyrica are DC'd as requested by the patient and his mother /ESBL bacteremia : Contact isolation IV antibiotics with meropenem, ID following, Treated total 2 weeks of Meropenem 1 gm IV every 24 hours ending 11/22/18 Pathology report , clear margins /-LEFT foot wound with positive ESBL wound cultures : Contact isolation, x-ray no osteomyelitis Presented with Lt Foot hematoma following amputation on 11/03: s/p incision and drainage on 11/09, 11/10, 11/15 cont IV antibiotics, supportive care, ID following, Surgery following, s/p TMA of left 4th toe and debridement of necrotic bone (left 5th metatarsal bone) 11/17, if clear margin achieved then abx will need till 11/22/18 -follow-up OR cultures and pathology (obtained 11/17) Pathology reports clean margins achieved at surgery, antibiotic course complete. /h/o Osteomyelitis of the L foot s/p partial 5th ray amputation on 11/03 with achievement of clean margin /Peripheral Vascular disease with non healing LLE ulcer; vascular following s/p CT Angiography of the left lower extremity with revascularization 11/14 /-End Stage Renal disease on hemodialysis; Nephrology following, dialysis per schedule /Chronic hypotension; Closely monitor blood pressures, continue midodrine /-DVT prophylaxis; Lovenox Disposition; continue inpatient management PT RECOMMENDED [facility] but no isolation bed, CM following - ordered repeat PT eval Brief History 53 yo M PMHx DM2, ESRD on HD, PVD, osteomyelitis of the L foot s/p partial 5th ray amputation on 11/03 admitted with new onset L foot pain. The pain began 5 days prior to admission in roughly the same area as the recent surgery. He notes some associated drainage at the site and surrounding redness, some low grade fevers at home but denies sweats or chills. Patient was evaluated by surgery underwent incision and drainage inside and debridement of left foot hematoma on 11/10 and 11/09. Vascular evaluated the patient and s/p CT angiography and revascularization on 11/14, s/p amputation and I and D on 11/17. fTreated with meropenem till 11/22 - Repeat PT eval pending Hospitalist Physical General appearance: Present: no acute distress, well-nourished - EENT Eyes: Present: PERRL, EOM intact - Neck Neck: Present: supple, normal ROM - Respiratory Respiratory effort: normal Respiratory: negative: diminished, rales, rhonchi - Cardiovascular Rhythm: regular Heart Sounds: Present: S1 & S2 - Extremities Extremities: no ischemia, abnormal (left foot dressing in place) - Abdominal General gastrointestinal: soft, non-tender, non-distended, normal bowel sounds - Integumentary Integumentary: Present: clear, warm - Psychiatric Psychiatric: appropriate mood/affect, cooperative - Neurologic Neurologic: CNII-XII intact, moves all extremities Subjective Date of service: 11/25/18 Principal diagnosis: ESRD on HD Interval history: Patient seen and examined. Medical records and medication list reviewed. No acute event overnight noted by the RN. Patient denies any chest pain or difficulty breathing. Patient is tolerating diet. Discussed plan of care at bedside with patient. PT RECOMMENDED [facility] - but got denied plan to d/c with HH after repeat PT eval Objective - Constitutional Vitals: Vital Signs - 12hr 11/25/18 11/25/18 11/25/18 05:42 09:44 11:46 Temperature 97.4 F L 98.0 F Pulse Rate 87 60 Respiratory 16 20 Rate Blood Pressure 91/39 101/59 O2 Sat by Pulse 99 90 95 Oximetry 11/25/18 11:48 Temperature 98.0 F Pulse Rate 97 H Respiratory 19 Rate Blood Pressure 103/65 O2 Sat by Pulse 94 Oximetry - Labs CBC & Chem 7: 11/22/18 06:55 11/26/18 07:00 Labs: Abnormal lab results 11/25/18 Range/Units 06:48 Chloride 92.8 L (98-107) mmol/L BUN 37 H (9-20) mg/dL Creatinine 7.5 H (0.8-1.5) mg/dL
--- NOTE | 2018-11-25 13:07 | Progress Note ---
Assessment and Plan ESRD on hemodialysis: -Hemodialysis today for UF and clearance -Fluid restriction of 32 ounces per day -Left AVG remians functional -F/U with Dr. Taylor outpatiently for routine access check and questionable pseudoaneurysm to left AVF -Renal/Dialysis diet -Obtain daily weights -Monitor I/O's -Assess dialysis needs daily -Awaiting isolation bed to become available at rehab facility Left foot pain: -S/P Transmetatarsal amputation, left 5th toe on 11/03/18 -S/P debridement of left foot wound today on 11/15/18 -S/P TMA of left 4th toe and debridement of necrotic bone (left 5th metatarsal bone) on 11/17/18 -S/P IV Merrem 1 gram every 24 hour, to completed, end date was 11/22/18 per ID -Surgeon onboard Chronic Hypotension: -On Midodrine -Monitor BP Subjective Date of service: 11/25/18 Principal diagnosis: ESRD on HD Interval history: Patient seen lying in bed and complaining that his Left AVF looks awful per patient. States dialysis nurses here told him that his arm is being stuck poorly at his outpatient HD clinic. Advised patient that a Vascular surgeon is the expertise to evaluate his access. Access is functional. Agrees to f/u with Dr. Taylor outpatiently. Objective - Vital Signs Vital signs: Vital Signs - 12hr 11/25/18 11/25/18 11/25/18 05:42 09:44 11:46 Temperature 97.4 F L 98.0 F Pulse Rate 87 60 Respiratory 16 20 Rate Blood Pressure 91/39 101/59 O2 Sat by Pulse 99 90 95 Oximetry 11/25/18 11:48 Temperature 98.0 F Pulse Rate 97 H Respiratory 19 Rate Blood Pressure 103/65 O2 Sat by Pulse 94 Oximetry - General Appearance General appearance: well-developed, fatigue EENT: ATNC, PERRL, hearing intact, vision intact Neck: no JVD, supple Respiratory: Present: Decreased Breath Sounds Cardiology: S1S2 Gastrointestinal: normoactive bowel sounds Integumentary: warm and dry Neurologic: alert and oriented x3 Musculoskeletal: joint swelling, other (Left wound intact with dressing) Psychiatric: agitated - Lab 11/22/18 06:55 11/25/18 06:48 Most recent lab results Calcium 9.8 mg/dL (8.4-10.2) 11/25/18 06:48 Phosphorus 4.90 mg/dL (2.5-4.5) H 11/15/18 06:48 Medications & Allergies - Medications Allergies/Adverse Reactions: Allergies No Known Allergies Allergy (Verified 09/06/18 10:32) Home Medications: Home Medications Medication Instructions Recorded Confirmed Last Taken Type Aspirin 325 mg PO QDAY #30 tablet 07/28/18 11/08/18 11/07/18 Rx Loperamide [Imodium] 2 mg PO Q2H PRN capsule 07/28/18 11/08/18 11/07/18 Rx Methadone [Dolophine] 10 mg PO DAILY #10 tablet 07/28/18 11/08/18 11/07/18 Rx Midodrine [Proamatine] 5 mg PO TID #90 tablet 07/28/18 11/08/18 11/07/18 Rx Multivitamin Tab [Multiple Vitamin 1 each PO QDAY #30 tablet 07/28/18 11/08/18 11/07/18 Rx TAB (Theragran)] Pregabalin [Lyrica] 100 mg PO TID #30 capsule 07/28/18 11/08/18 11/07/18 Rx Sevelamer Carbonate [Renvela] 4,000 mg PO TIDWM #30 tablet 07/28/18 11/08/18 11/07/18 Rx AtorvaSTATin [Lipitor] 40 mg PO QHS #30 tablet 10/21/18 11/08/18 11/07/18 Rx Carvedilol [Coreg] 3.125 mg PO BID tablet 10/21/18 11/08/18 11/07/18 Rx Clopidogrel [Plavix] 75 mg PO QDAY #30 tablet 10/21/18 11/08/18 11/07/18 Rx traZODone [Desyrel] 50 mg PO BID 10/31/18 11/08/18 11/07/18 History Famotidine [Pepcid] 10 mg PO BID tablet 11/23/18 Unknown Rx Pentoxifylline [TRENtal] 200 mg PO DAILY tablet 11/23/18 Unknown Rx Pregabalin [Lyrica] 75 mg PO TID capsule 11/23/18 Unknown Rx oxyCODONE /ACETAMINOPHEN [Percocet 1 tab PO Q4HR PRN #20 tab 11/23/18 Unknown Rx 5/325 mg] Active Medications: Generic Name Dose Route Start Last Admin Trade Name Freq PRN Reason Stop Dose Admin Acetaminophen 650 mg 11/08/18 22:08 Tylenol PO Q4H PRN Pain MILD(1-3)/Fever >100.5/WEST Alprazolam 2 mg 11/08/18 22:06 11/23/18 09:50 Xanax PO 2 mg TID PRN Administration Anxiety Aspirin 325 mg 11/09/18 10:00 11/25/18 11:04 Aspirin PO 325 mg QDAY KWAME Administration Atorvastatin Calcium 40 mg 11/09/18 22:00 11/24/18 21:30 Lipitor PO 40 mg QHS KWAME Administration Carvedilol 3.125 mg 11/09/18 10:00 11/25/18 11:12 Coreg PO Not Given BID KWAME Clopidogrel Bisulfate 75 mg 11/09/18 10:00 11/25/18 11:03 Plavix PO 75 mg QDAY KWAME Administration Diphenhydramine HCl 25 mg 11/14/18 15:08 Benadryl IV Q8H PRN Itching Famotidine 10 mg 11/08/18 23:00 11/25/18 11:03 Pepcid PO 10 mg BID KWAME Administration Heparin Sodium (Porcine) 5,000 unit 11/22/18 10:00 11/25/18 11:06 Heparin SUB-Q 5,000 unit Q12HR KWAME Administration Sodium Chloride 100 mls @ 999 mls/hr 11/08/18 18:14 Nacl 0.9% IV DWIGHT PRN Hypotension Sodium Chloride 1,000 mls @ 42 mls/hr 11/17/18 12:00 11/17/18 12:05 Nacl 0.9% 1000 Ml IV 42 mls/hr DIRECT KWAME Administration Loperamide HCl 2 mg 11/08/18 22:06 Imodium PO Q2H PRN Diarrhea Midodrine 10 mg 11/11/18 09:53 11/25/18 05:31 Proamatine PO 10 mg TID@0600,1200,1800 KWAME Administration Multivitamins 1 each 11/09/18 10:00 11/25/18 11:04 Theragran Tab PO 1 each QDAY KWAME Administration Ondansetron HCl 4 mg 11/19/18 22:13 Zofran IV Q8H PRN Nausea And Vomiting Oxycodone/Acetaminophen 1 tab 11/08/18 22:06 11/24/18 21:31 Percocet 5/325 PO 1 tab Q4H PRN Administration Pain, Moderate (4-6) Pentoxifylline 200 mg 11/14/18 13:00 11/25/18 11:04 Trental PO 200 mg DAILY KWAME Administration Promethazine HCl 25 mg 11/09/18 09:27 Phenergan PO Q4HR PRN N/V UNRELIEVED BY JESSICA Choimer Carbonate 4,000 mg 11/09/18 08:00 11/25/18 09:23 Renvela PO 4,000 mg TIDWM KWAME Administration Sodium Chloride 10 ml 11/09/18 10:00 11/25/18 11:12 Sodium Chloride Flush Syringe 10 Ml IV 10 ml BID KWAME Administration Sodium Chloride 10 ml 11/08/18 22:08 11/12/18 22:36 Sodium Chloride Flush Syringe 10 Ml IV 10 ml PRN PRN Administration LINE FLUSH Sodium Chloride 250 ml 11/10/18 13:00 11/21/18 23:03 Nacl 0.9% 250ml IV 250 ml DIRECT KWAME Administration Trazodone HCl 50 mg 11/09/18 10:00 11/25/18 11:04 Desyrel PO 50 mg BID KWAME Administration Zolpidem Tartrate 10 mg 11/08/18 22:06 11/14/18 21:09 Ambien PO 10 mg QHS PRN Administration Sleep
[2018-11-26] MEDS: PROAMATINE PO SCH ×3 (05:45→18:39)
[2018-11-26] MEDS: XANAX PO PRN (08:15)
[2018-11-26 09:16] LABS: Calcium 9.7 mg/dL (8.4-10.2)
[2018-11-26] MEDS: RENVELA PO SCH ×3 (09:24→18:39)
[2018-11-26] MEDS: PLAVIX PO SCH (10:57)
[2018-11-26] MEDS: PEPCID PO SCH (10:57)
[2018-11-26] MEDS: TRENTAL PO SCH (10:58)
[2018-11-26] MEDS: ASPIRIN PO SCH (10:58)
[2018-11-26] MEDS: THERAGRAN Tab PO SCH (10:59)
[2018-11-26] MEDS: COREG PO SCH (10:59)
[2018-11-26] MEDS: DESYREL PO SCH (11:00)
[2018-11-26] MEDS: HEPARIN SUB-Q SCH (11:01)
[2018-11-26] MEDS: SODIUM CHLORIDE FLUSH SYRINGE 10 ML IV SCH (11:02)
--- NOTE | 2018-11-26 11:59 | Discharge Summary ---
Providers - Providers Date of Admission: 11/08/18 15:25 Date of discharge: 11/26/18 Attending physician: ASHLEY SHEEHAN 11/08/18 15:15 Consult to Physician [CONS] Stat Comment: Consulting Provider: YURIDIA STEWART Physician Instructions: Reason For Exam: post operative infection 11/08/18 15:22 Consult to Physician [CONS] Stat Comment: Consulting Provider: NIRMALA ALVAREZ Physician Instructions: Reason For Exam: esrd 11/09/18 23:47 Consult to Physician [CONS] Routine Comment: Consulting Provider: THONG VARGAS Physician Instructions: Reason For Exam: + gram neg rods, lt foot infectionhx osteomyelitis 11/11/18 10:05 Consult to Physician [CONS] Urgent Comment: Consulting Provider: CAROLA FELIZ Physician Instructions: Reason For Exam: evaluate left foot 11/11/18 14:06 Midline [Consult to PICC Line RN] [CONS] Routine Reason For Exam: OPAT Type Line:: Midline 11/11/18 14:08 Consult to Case Management [CONS] Routine Services Needed at Discharge: Other Notified:: janes Additional Physician Instructions: [facility] M [phone] O [phone] F [phone] OUTPATIENT PARENTERAL ANTIBIOTIC THERAPY ORDERS Diagnoses: ESBL bacteremia, Wound - ESBL klebsiella, Enterococcus Antimicrobial administration: Anticipate discharge on meropenem 1 gm IV every 24 hours for total 2 weeks ending 11-22-18 Lines: Tunneled PICC Lab monitoring: CBC, ALT, AST, CRP , vancomycin trough once a week preferly on Wednesday morning. Please fax results to [phone] and call [phone] for critical lab results. Carolina Kraft NP/Shantanu Mehta Date: 11/11/18 11/14/18 13:44 Consult to Interventional Radiology [CONS] Routine Consulting Provider: CAROLA TEAGUE Reason For Exam: Tunneled PICC for OPAT Place consult to:: carola Teague Notified:: office Phone number called:: [phone] Was contact made?: Yes If yes, spoke with:: Time called:: 14:27 Comment:: Tara is aware 11/18/18 14:25 Physical Therapy Evaluation and Treat [CONS] Routine Comment: Reason For Exam: placement 11/21/18 07:52 Consult to Wound/ET Nurse [CONS] Routine Reason For Exam: wound eval Primary care physician: GUME COOPER Hospitalization Condition: Stable Pertinent studies: CXR Foot xry Hospital course: 53 yo M PMHx DM2, ESRD on HD, PVD, osteomyelitis of the L foot s/p partial 5th ray amputation on 11/03 admitted with new onset L foot pain. The pain began 5 days prior to admission in roughly the same area as the recent surgery. He notes some associated drainage at the site and surrounding redness, some low grade fevers at home but denies sweats or chills. Patient was evaluated by surgery underwent incision and drainage inside and debridement of left foot hematoma on 11/10 and 11/09. Vascular evaluated the patient and s/p CT angiography and revascularization on 11/14, s/p amputation and I and D on 11/17. Treated with meropenem till 11/22 - Repeat PT eval recommended HH. Discharge dhome with outpt followup. Discharge diagnosis and management: /ESBL bacteremia : Contact isolation IV antibiotics with meropenem, ID following, no vegetation on 2d echo Treated total 2 weeks of Meropenem 1 gm IV every 24 hours ending 11/22/18 /LEFT foot wound with positive ESBL wound cultures : place don Contact isolation, x-ray no osteomyelitis Presented with Lt Foot hematoma following amputation on 11/03: s/p incision and drainage on 11/09, 11/10, 11/15 s/p TMA of left 4th toe and debridement of necrotic bone (left 5th metatarsal bone) 11/17, -follow-up OR cultures and pathology (obtained 11/17) Pathology reports clean margins achieved at surgery, antibiotic course completed till 11/22/18 . / Brief Episodes of confusion/metabolic encephalopathy; resolved Patient and the mother feel that methadone and Lyrica may be causing Mild intermittent jerky movements and confusion Methadone and Lyrica are DC'd as requested by the patient and his mother /Peripheral Vascular disease with non healing LLE ulcer; vascular following s/p CT Angiography of the left lower extremity with revascularization 11/14 /-End Stage Renal disease on hemodialysis; Nephrology following, dialysis per schedule /Chronic hypotension; Closely monitor blood pressures, continue midodrine /-DVT prophylaxis; Lovenox Disposition; PT RECOMMENDED [facility] but no isolation bed, CM following - ordered repeat PT eval - recommended HH with outpt wound care Hospitalist Physical General appearance: Present: no acute distress, well-nourished - EENT Eyes: Present: PERRL, EOM intact - Neck Neck: Present: supple, normal ROM - Respiratory Respiratory effort: normal Respiratory: negative: diminished, rales, rhonchi - Cardiovascular Rhythm: regular Heart Sounds: Present: S1 & S2 - Extremities Extremities: no ischemia, abnormal (left foot dressing in place) - Abdominal General gastrointestinal: soft, non-tender, non-distended, normal bowel sounds - Integumentary Integumentary: Present: clear, warm - Psychiatric Psychiatric: appropriate mood/affect, cooperative - Neurologic Neurologic: CNII-XII intact, moves all extremities Disposition: [id number] HOME UNDER HOME [facility] Time spent for discharge: 34 minutes Core Measure Documentation - Palliative Care Palliative Care/ Comfort Measures: Not Applicable - Core Measures Any of the following diagnoses?: none Exam - Constitutional Vitals: Temp Pulse Resp BP Pulse Ox 98.9 F 96 H 18 82/47 99 11/26/18 05:15 11/26/18 05:15 11/26/18 05:15 11/26/18 10:59 11/26/18 05:15 Plan Activity: fall precautions Weight Bearing Status: Non-Weight Bearing Diet: renal Wound: per your surgeon's advice, per wound nurse instructions Follow up with: SERA DAVALOS MD [Staff Physician] - 7 Days CAROLA FELIZ MD [Staff Physician] - 7 Days DEANNA ISLAS MD [Staff Physician] - 7 Days GUME COOPER MD [Primary Care Provider] - 7 Days YURIDIA STEWART MD [Staff Physician] - 7 Days Prescriptions: oxyCODONE /ACETAMINOPHEN [Percocet 5/325 mg] 1 tab PO Q4HR PRN #20 tab PRN Reason: Pain, Moderate (4-6)
[2018-11-26 16:05] VITALS: BP 89/47
--- NOTE | 2018-11-26 16:21 | Progress Note ---
Assessment and Plan ESRD on hemodialysis: -S/p Hemodialysis yesterday for UF and clearance, UF removed 2500 ml -No acute indication for HD today -Assess need for HD on daily basis -Fluid restriction of 32 ounces per day -Right AVF functional with + thrill and bruit, noted to have skin scab over AVF site with blood noted, dressing to be re-applied by his nurse. Pt will need to follow up with Dr. 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 right AVF -Renal/Dialysis diet -Renal plan d/w Dr Obrien Left foot pain: Left Foot wound with positive ESBL wound culture: ESBL Bacteremia: -S/P Transmetatarsal amputation, left 5th toe on 11/03/18 -S/P Debridement of left foot wound on 11/15/18 -S/P TMA of left 4th toe and debridement of necrotic bone (left 5th metatarsal bone) on 11/17/18 -S/P IV Meropenem 1 gram every 24 hour, to completed, end date was 11/22/18 per ID -Surgeon evaluated pt Chronic Hypotension: -On Midodrine -Monitor BP Subjective Date of service: 11/26/18 Principal diagnosis: ESRD on HD Interval history: Pt seen in bed, states HD went well yesterday, no acute distress, denies shortness of breath. Pt did report having scab around his right AVF site with some bleeding noted when taking off dressing. I spoke with pt's nurse about putting dressing on AVF (not to place on tight). Objective - Vital Signs Vital signs: Vital Signs - 12hr 11/26/18 11/26/18 11/26/18 05:15 10:59 12:45 Temperature 98.9 F 98.7 F Pulse Rate 96 H 88 Respiratory 18 18 Rate Blood Pressure 74/41 82/47 89/47 O2 Sat by Pulse 99 99 Oximetry - General Appearance General appearance: well-developed EENT: ATNC Neck: no JVD Respiratory: Present: Decreased Breath Sounds Cardiology: regular, S1S2, other (ACCESS: Right AVF + thrill and bruit - skin scab noted on AVF with some blood noted ) Gastrointestinal: normoactive bowel sounds Integumentary: ulcer (Left foot wound with dressing in place) Neurologic: alert and oriented x3 Musculoskeletal: other (trace edema to BLE) Psychiatric: cooperative - Lab 11/22/18 06:55 11/26/18 07:00 Most recent lab results Calcium 9.7 mg/dL (8.4-10.2) 11/26/18 07:00 Phosphorus 4.90 mg/dL (2.5-4.5) H 11/15/18 06:48 Medications & Allergies - Medications Allergies/Adverse Reactions: Allergies No Known Allergies Allergy (Verified 09/06/18 10:32) Home Medications: Home Medications Medication Instructions Recorded Confirmed Last Taken Type Aspirin 325 mg PO QDAY #30 tablet 07/28/18 11/08/18 11/07/18 Rx Loperamide [Imodium] 2 mg PO Q2H PRN capsule 07/28/18 11/08/18 11/07/18 Rx Midodrine [Proamatine] 5 mg PO TID #90 tablet 07/28/18 11/08/18 11/07/18 Rx Multivitamin Tab [Multiple Vitamin 1 each PO QDAY #30 tablet 07/28/18 11/08/18 11/07/18 Rx TAB (Theragran)] Sevelamer Carbonate [Renvela] 4,000 mg PO TIDWM #30 tablet 07/28/18 11/08/18 11/07/18 Rx AtorvaSTATin [Lipitor] 40 mg PO QHS #30 tablet 10/21/18 11/08/18 11/07/18 Rx Carvedilol [Coreg] 3.125 mg PO BID tablet 10/21/18 11/08/18 11/07/18 Rx Clopidogrel [Plavix] 75 mg PO QDAY #30 tablet 10/21/18 11/08/18 11/07/18 Rx traZODone [Desyrel] 50 mg PO BID 10/31/18 11/08/18 11/07/18 History Famotidine [Pepcid] 10 mg PO BID tablet 11/23/18 Unknown Rx Pentoxifylline [TRENtal] 200 mg PO DAILY tablet 11/23/18 Unknown Rx oxyCODONE /ACETAMINOPHEN [Percocet 1 tab PO Q4HR PRN #20 tab 11/23/18 Unknown Rx 5/325 mg] Active Medications: Generic Name Dose Route Start Last Admin Trade Name Freq PRN Reason Stop Dose Admin Acetaminophen 650 mg 11/08/18 22:08 Tylenol PO Q4H PRN Pain MILD(1-3)/Fever >100.5/WEST Alprazolam 2 mg 11/08/18 22:06 11/26/18 08:15 Xanax PO 2 mg TID PRN Administration Anxiety Aspirin 325 mg 11/09/18 10:00 11/26/18 10:58 Aspirin PO 325 mg QDAY KWAME Administration Atorvastatin Calcium 40 mg 11/09/18 22:00 11/25/18 22:22 Lipitor PO 40 mg QHS KWAME Administration Carvedilol 3.125 mg 11/09/18 10:00 11/26/18 10:59 Coreg PO Not Given BID [facility] Clopidogrel Bisulfate 75 mg 11/09/18 10:00 11/26/18 10:57 Plavix PO 75 mg QDAY [facility] Administration Diphenhydramine HCl 25 mg 11/14/18 15:08 11/25/18 18:37 Benadryl IV 25 mg Q8H PRN Administration Itching Famotidine 10 mg 11/08/18 23:00 11/26/18 10:57 Pepcid PO 10 mg BID KWAME Administration Heparin Sodium (Porcine) 5,000 unit 11/22/18 10:00 11/26/18 11:01 Heparin SUB-Q 5,000 unit Q12HR KWAME Administration Sodium Chloride 100 mls @ 999 mls/hr 11/08/18 18:14 Nacl 0.9% IV WDIGHT PRN Hypotension Loperamide HCl 2 mg 11/08/18 22:06 Imodium PO Q2H PRN Diarrhea Midodrine 10 mg 11/11/18 09:53 11/26/18 13:36 Proamatine PO 10 mg TID@0600,1200,1800 KWAME Administration Multivitamins 1 each 11/09/18 10:00 11/26/18 10:59 Theragran Tab PO 1 each QDAY [facility] Administration Ondansetron HCl 4 mg 11/19/18 22:13 Zofran IV Q8H PRN Nausea And Vomiting Oxycodone/Acetaminophen 1 tab 11/08/18 22:06 11/24/18 21:31 Percocet 5/325 PO 1 tab Q4H PRN Administration Pain, Moderate (4-6) Pentoxifylline 200 mg 11/14/18 13:00 11/26/18 10:58 Trental PO 200 mg DAILY KWAME Administration Promethazine HCl 25 mg 11/09/18 09:27 Phenergan PO Q4HR PRN N/V UNRELIEVED BY JESSICA Choimer Carbonate 4,000 mg 11/09/18 08:00 11/26/18 13:36 Renvela PO 4,000 mg TIDWM KWAME Administration Sodium Chloride 10 ml 11/09/18 10:00 11/26/18 11:02 Sodium Chloride Flush Syringe 10 Ml IV 10 ml BID KWAME Administration Sodium Chloride 10 ml 11/08/18 22:08 11/12/18 22:36 Sodium Chloride Flush Syringe 10 Ml IV 10 ml PRN PRN Administration LINE FLUSH Trazodone HCl 50 mg 11/09/18 10:00 11/26/18 11:00 Desyrel PO 50 mg BID KWAME Administration Zolpidem Tartrate 10 mg 11/08/18 22:06 11/14/18 21:09 Ambien PO 10 mg QHS PRN Administration Sleep
== END 2018-11-26 18:44 | disposition home health service (06) | DRG 463 ==
LOC: ED 14:05 → 3A 15:25
PROVIDERS: ADMIT Internal Medicine; ATTEND Internal Medicine
PROC: 5A1D70Z Performance of Urinary Filtration, Intermittent, Less than 6 Hours Per Day (ICD-10-PCS; 2018-11-08)
PROC: 0JBR0ZZ Excision of Left Foot Subcutaneous Tissue and Fascia, Open Approach (ICD-10-PCS; 2018-11-09)
PROC: 5A1D70Z Performance of Urinary Filtration, Intermittent, Less than 6 Hours Per Day (ICD-10-PCS; 2018-11-09)
PROC: 0Y9N0ZZ Drainage of Left Foot, Open Approach (ICD-10-PCS; 2018-11-09)
PROC: 0LBW0ZZ Excision of Left Foot Tendon, Open Approach (ICD-10-PCS; 2018-11-10)
PROC: 5A1D70Z Performance of Urinary Filtration, Intermittent, Less than 6 Hours Per Day (ICD-10-PCS; 2018-11-11)
PROC: 5A1D70Z Performance of Urinary Filtration, Intermittent, Less than 6 Hours Per Day (ICD-10-PCS; 2018-11-14)
PROC: B41D1ZZ Fluoroscopy of Aorta and Bilateral Lower Extremity Arteries using Low Osmolar Contrast (ICD-10-PCS; 2018-11-14)
PROC: 0KBW0ZZ Excision of Left Foot Muscle, Open Approach (ICD-10-PCS; 2018-11-15)
PROC: 5A1D70Z Performance of Urinary Filtration, Intermittent, Less than 6 Hours Per Day (ICD-10-PCS; 2018-11-16)
PROC: B5141ZZ Fluoroscopy of Left Jugular Veins using Low Osmolar Contrast (ICD-10-PCS; 2018-11-16)
PROC: B51N1ZZ Fluoroscopy of Left Upper Extremity Veins using Low Osmolar Contrast (ICD-10-PCS; 2018-11-16)
PROC: B5171ZZ Fluoroscopy of Left Subclavian Vein using Low Osmolar Contrast (ICD-10-PCS; 2018-11-16)
PROC: 05JY3ZZ Inspection of Upper Vein, Percutaneous Approach (ICD-10-PCS; 2018-11-16)
PROC: 0Y6N0ZD Detachment at Left Foot, Partial 4th Ray, Open Approach (ICD-10-PCS; 2018-11-17)
PROC: 0QBP0ZZ Excision of Left Metatarsal, Open Approach (ICD-10-PCS; 2018-11-17)
PROC: 5A1D70Z Performance of Urinary Filtration, Intermittent, Less than 6 Hours Per Day (ICD-10-PCS; 2018-11-18)
PROC: 5A1D70Z Performance of Urinary Filtration, Intermittent, Less than 6 Hours Per Day (ICD-10-PCS; 2018-11-21)
PROC: 0KBW0ZZ Excision of Left Foot Muscle, Open Approach (ICD-10-PCS; principal; 2018-11-22)
PROC: 0HBNXZZ Excision of Left Foot Skin, External Approach (ICD-10-PCS; 2018-11-22)
PROC: 5A1D70Z Performance of Urinary Filtration, Intermittent, Less than 6 Hours Per Day (ICD-10-PCS; 2018-11-23)
PROC: 5A1D70Z Performance of Urinary Filtration, Intermittent, Less than 6 Hours Per Day (ICD-10-PCS; 2018-11-24)
PROC: 5A1D70Z Performance of Urinary Filtration, Intermittent, Less than 6 Hours Per Day (ICD-10-PCS; 2018-11-25)
DX: T87.44 Infection of amputation stump, left lower extremity (principal); N18.6 End stage renal disease; E11.52 Type 2 diabetes mellitus with diabetic peripheral angiopathy with gangrene; L03.116 Cellulitis of left lower limb; I12.0 Hypertensive chronic kidney disease with stage 5 chronic kidney disease or end stage renal disease; I96 Gangrene, not elsewhere classified; I95.89 Other hypotension; E11.22 Type 2 diabetes mellitus with diabetic chronic kidney disease; K21.9 Gastro-esophageal reflux disease without esophagitis; Y83.5 Amputation of limb(s) as the cause of abnormal reaction of the patient, or of later complication, without mention of misadventure at the time of the procedure; I95.9 Hypotension, unspecified; I25.10 Atherosclerotic heart disease of native coronary artery without angina pectoris; F17.210 Nicotine dependence, cigarettes, uncomplicated; E11.621 Type 2 diabetes mellitus with foot ulcer; L97.529 Non-pressure chronic ulcer of other part of left foot with unspecified severity; B96.1 Klebsiella pneumoniae [K. pneumoniae] as the cause of diseases classified elsewhere; B95.2 Enterococcus as the cause of diseases classified elsewhere; Z16.12 Extended spectrum beta lactamase (ESBL) resistance; G89.29 Other chronic pain; F41.1 Generalized anxiety disorder; E78.5 Hyperlipidemia, unspecified; Z99.2 Dependence on renal dialysis; Z82.49 Family history of ischemic heart disease and other diseases of the circulatory system; Z95.828 Presence of other vascular implants and grafts; Z79.82 Long term (current) use of aspirin; Z79.899 Other long term (current) drug therapy; Z79.01 Long term (current) use of anticoagulants; Z83.3 Family history of diabetes mellitus; Y92.098 Other place in other non-institutional residence as the place of occurrence of the external cause; Z79.84 Long term (current) use of oral hypoglycemic drugs
CPT/HCPCS: 36247; 36415; 36558; 71045; 75625; 75716; 77001; 80048; 80053; 80202; 82140; 82803; 82805; 82962; 83036; 84100; 84132; 85025; 85610; 87040; 87076; 87086; 87116; 87186; 88305; 88311; 93005; 93010; 96365; 96366; G0378; A6021; A9270-GY; C1760; C1769; C1887; C1894; J0690; J1200; J1335; J1644; J2185; J2250; J2370; J2543; J2704; J3010; J3246; J3370; J7030; J7040; J7050; Q9967

== ENCOUNTER 2018-11-30 08:53 | Outpatient (CLI) | payer MEDICARE ==
[2018-11-30] MEDS ORDERED: SILVER NITRATE TP ONE (09:30)
[2018-11-30] MEDS ORDERED: XYLOCAINE TOPICAL 4% TP ONE (09:30)
== END 2018-11-30 08:54 | disposition home or self-care (01) ==
LOC: WOUND 08:53
PROVIDERS: ATTEND Surgery
DX: E11.621 Type 2 diabetes mellitus with foot ulcer (principal); L97.525 Non-pressure chronic ulcer of other part of left foot with muscle involvement without evidence of necrosis; E11.69 Type 2 diabetes mellitus with other specified complication; M86.672 Other chronic osteomyelitis, left ankle and foot; E11.22 Type 2 diabetes mellitus with diabetic chronic kidney disease; I12.0 Hypertensive chronic kidney disease with stage 5 chronic kidney disease or end stage renal disease; N18.6 End stage renal disease; F32.9 Major depressive disorder, single episode, unspecified; Z99.2 Dependence on renal dialysis

== ENCOUNTER 2018-12-02 13:15 | Outpatient (CLI) | payer MEDICARE | END 2018-12-02 13:16 | disposition home or self-care (01) | LOC: WOUND 13:15 | PROVIDERS: ATTEND Surgery | DX: E11.621 Type 2 diabetes mellitus with foot ulcer (principal); L97.521 Non-pressure chronic ulcer of other part of left foot limited to breakdown of skin; E11.69 Type 2 diabetes mellitus with other specified complication; M86.672 Other chronic osteomyelitis, left ankle and foot; E11.22 Type 2 diabetes mellitus with diabetic chronic kidney disease; I12.0 Hypertensive chronic kidney disease with stage 5 chronic kidney disease or end stage renal disease; N18.6 End stage renal disease; F32.9 Major depressive disorder, single episode, unspecified; Z99.2 Dependence on renal dialysis | CPT/HCPCS: 82962; G0277; 99183 ==

== ENCOUNTER 2018-12-06 08:30 | Outpatient (CLI) | payer MEDICARE ==
[2018-12-06] MEDS ORDERED: XYLOCAINE TOPICAL 4% TP ONE (09:00)
[2018-12-06] MEDS ORDERED: SILVER NITRATE TP ONE (09:00)
== END 2018-12-06 08:31 | disposition home or self-care (01) ==
LOC: WOUND 08:30
PROVIDERS: ATTEND Surgery
DX: E11.621 Type 2 diabetes mellitus with foot ulcer (principal); L97.525 Non-pressure chronic ulcer of other part of left foot with muscle involvement without evidence of necrosis; E11.69 Type 2 diabetes mellitus with other specified complication; M86.672 Other chronic osteomyelitis, left ankle and foot; E11.22 Type 2 diabetes mellitus with diabetic chronic kidney disease; I12.0 Hypertensive chronic kidney disease with stage 5 chronic kidney disease or end stage renal disease; N18.6 End stage renal disease; F32.9 Major depressive disorder, single episode, unspecified; Z99.2 Dependence on renal dialysis
CPT/HCPCS: 11043; 11046; 82962; 97606; G0277; 99183

== ENCOUNTER 2018-12-15 09:39 | Outpatient (CLI) | payer MEDICARE ==
[2018-12-15] MEDS ORDERED: SILVER NITRATE TP ONE (10:30)
[2018-12-15] MEDS ORDERED: XYLOCAINE TOPICAL 4% TP ONE (10:30)
== END 2018-12-15 09:40 | disposition home or self-care (01) ==
LOC: WOUND 09:39
PROVIDERS: ATTEND Surgery
DX: E11.621 Type 2 diabetes mellitus with foot ulcer (principal); L97.525 Non-pressure chronic ulcer of other part of left foot with muscle involvement without evidence of necrosis; E11.69 Type 2 diabetes mellitus with other specified complication; M86.672 Other chronic osteomyelitis, left ankle and foot; E11.22 Type 2 diabetes mellitus with diabetic chronic kidney disease; I12.0 Hypertensive chronic kidney disease with stage 5 chronic kidney disease or end stage renal disease; N18.6 End stage renal disease; F32.9 Major depressive disorder, single episode, unspecified; Z99.2 Dependence on renal dialysis
CPT/HCPCS: 97606

== ENCOUNTER 2018-12-16 12:59 | Outpatient (CLI) | payer MEDICARE | END 2018-12-16 13:00 | disposition home or self-care (01) | LOC: WOUND 12:59 | PROVIDERS: ATTEND Surgery | DX: E11.621 Type 2 diabetes mellitus with foot ulcer (principal); L97.525 Non-pressure chronic ulcer of other part of left foot with muscle involvement without evidence of necrosis; E11.69 Type 2 diabetes mellitus with other specified complication; M86.672 Other chronic osteomyelitis, left ankle and foot; E11.22 Type 2 diabetes mellitus with diabetic chronic kidney disease; I12.0 Hypertensive chronic kidney disease with stage 5 chronic kidney disease or end stage renal disease; N18.6 End stage renal disease; F32.9 Major depressive disorder, single episode, unspecified | CPT/HCPCS: 82962; G0277; 99183 ==

== ENCOUNTER 2018-12-19 13:37 | Outpatient (CLI) | payer MEDICARE | END 2018-12-19 13:38 | disposition home or self-care (01) | LOC: WOUND 13:37 | PROVIDERS: ATTEND Surgery | DX: E11.621 Type 2 diabetes mellitus with foot ulcer (principal); L97.525 Non-pressure chronic ulcer of other part of left foot with muscle involvement without evidence of necrosis; E11.69 Type 2 diabetes mellitus with other specified complication; M86.672 Other chronic osteomyelitis, left ankle and foot; E11.22 Type 2 diabetes mellitus with diabetic chronic kidney disease; I12.0 Hypertensive chronic kidney disease with stage 5 chronic kidney disease or end stage renal disease; N18.6 End stage renal disease; F32.9 Major depressive disorder, single episode, unspecified | CPT/HCPCS: 97606 ==

== ENCOUNTER 2018-12-20 12:58 | Outpatient (CLI) | payer MEDICARE | END 2018-12-20 12:59 | disposition home or self-care (01) | LOC: WOUND 12:58 | PROVIDERS: ATTEND Surgery | DX: E11.621 Type 2 diabetes mellitus with foot ulcer (principal); L97.525 Non-pressure chronic ulcer of other part of left foot with muscle involvement without evidence of necrosis; E11.69 Type 2 diabetes mellitus with other specified complication; M86.672 Other chronic osteomyelitis, left ankle and foot; E11.22 Type 2 diabetes mellitus with diabetic chronic kidney disease; I12.0 Hypertensive chronic kidney disease with stage 5 chronic kidney disease or end stage renal disease; N18.6 End stage renal disease; F32.9 Major depressive disorder, single episode, unspecified | CPT/HCPCS: 82962; 99183; G0277 ==

== ENCOUNTER 2018-12-23 12:59 | Outpatient (CLI) | payer MEDICARE | END 2018-12-23 13:00 | disposition home or self-care (01) | LOC: WOUND 12:59 | PROVIDERS: ATTEND Surgery | DX: E11.621 Type 2 diabetes mellitus with foot ulcer (principal); L97.525 Non-pressure chronic ulcer of other part of left foot with muscle involvement without evidence of necrosis; E11.69 Type 2 diabetes mellitus with other specified complication; M86.672 Other chronic osteomyelitis, left ankle and foot; E11.22 Type 2 diabetes mellitus with diabetic chronic kidney disease; I12.0 Hypertensive chronic kidney disease with stage 5 chronic kidney disease or end stage renal disease; N18.6 End stage renal disease; F32.9 Major depressive disorder, single episode, unspecified | CPT/HCPCS: 99183; G0277 ==

== ENCOUNTER 2019-01-09 13:09 | Outpatient (CLI) | payer MEDICARE | END 2019-01-09 13:10 | disposition home or self-care (01) | LOC: WOUND 13:09 | PROVIDERS: ATTEND Surgery | DX: E11.621 Type 2 diabetes mellitus with foot ulcer (principal); L97.521 Non-pressure chronic ulcer of other part of left foot limited to breakdown of skin; E11.69 Type 2 diabetes mellitus with other specified complication; M86.672 Other chronic osteomyelitis, left ankle and foot; E11.22 Type 2 diabetes mellitus with diabetic chronic kidney disease; I12.0 Hypertensive chronic kidney disease with stage 5 chronic kidney disease or end stage renal disease; N18.6 End stage renal disease; F32.9 Major depressive disorder, single episode, unspecified; Z99.2 Dependence on renal dialysis | CPT/HCPCS: 82962; G0277; 99183 ==

== ENCOUNTER 2019-01-12 13:03 | Outpatient (CLI) | payer MEDICARE | END 2019-01-12 13:04 | disposition home or self-care (01) | LOC: WOUND 13:03 | PROVIDERS: ATTEND Surgery | DX: E11.621 Type 2 diabetes mellitus with foot ulcer (principal); L97.525 Non-pressure chronic ulcer of other part of left foot with muscle involvement without evidence of necrosis; E11.69 Type 2 diabetes mellitus with other specified complication; M86.672 Other chronic osteomyelitis, left ankle and foot; E11.22 Type 2 diabetes mellitus with diabetic chronic kidney disease; I12.0 Hypertensive chronic kidney disease with stage 5 chronic kidney disease or end stage renal disease; N18.6 End stage renal disease; F32.9 Major depressive disorder, single episode, unspecified | CPT/HCPCS: 82962; 97605 ==

== ENCOUNTER 2019-01-13 13:31 | Outpatient (CLI) | payer MEDICARE | END 2019-01-13 13:32 | disposition home or self-care (01) | LOC: WOUND 13:31 | PROVIDERS: ATTEND Surgery | DX: E11.621 Type 2 diabetes mellitus with foot ulcer (principal); L97.525 Non-pressure chronic ulcer of other part of left foot with muscle involvement without evidence of necrosis; E11.69 Type 2 diabetes mellitus with other specified complication; M86.672 Other chronic osteomyelitis, left ankle and foot; E11.22 Type 2 diabetes mellitus with diabetic chronic kidney disease; I12.0 Hypertensive chronic kidney disease with stage 5 chronic kidney disease or end stage renal disease; N18.6 End stage renal disease; F32.9 Major depressive disorder, single episode, unspecified | CPT/HCPCS: 82962; 99183; G0277 ==

== ENCOUNTER 2019-01-16 12:21 | Outpatient (CLI) | payer MEDICARE | END 2019-01-16 12:22 | disposition home or self-care (01) | LOC: WOUND 12:21 | PROVIDERS: ATTEND Surgery | DX: E11.621 Type 2 diabetes mellitus with foot ulcer (principal); L97.525 Non-pressure chronic ulcer of other part of left foot with muscle involvement without evidence of necrosis; E11.69 Type 2 diabetes mellitus with other specified complication; M86.672 Other chronic osteomyelitis, left ankle and foot; E11.22 Type 2 diabetes mellitus with diabetic chronic kidney disease; I12.0 Hypertensive chronic kidney disease with stage 5 chronic kidney disease or end stage renal disease; N18.6 End stage renal disease; F32.9 Major depressive disorder, single episode, unspecified | CPT/HCPCS: 82962; G0277; 99183 ==

== ENCOUNTER 2019-01-17 12:48 | Outpatient (CLI) | payer MEDICARE | END 2019-01-17 12:49 | disposition home or self-care (01) | LOC: WOUND 12:48 | PROVIDERS: ATTEND Surgery | DX: E11.621 Type 2 diabetes mellitus with foot ulcer (principal); L97.521 Non-pressure chronic ulcer of other part of left foot limited to breakdown of skin; E11.69 Type 2 diabetes mellitus with other specified complication; M86.672 Other chronic osteomyelitis, left ankle and foot; E11.22 Type 2 diabetes mellitus with diabetic chronic kidney disease; I12.0 Hypertensive chronic kidney disease with stage 5 chronic kidney disease or end stage renal disease; N18.6 End stage renal disease; F32.9 Major depressive disorder, single episode, unspecified; Z99.2 Dependence on renal dialysis | CPT/HCPCS: 82962; 99183; G0277 ==

== ENCOUNTER 2019-01-18 13:01 | Outpatient (CLI) | payer MEDICARE | END 2019-01-18 13:02 | disposition home or self-care (01) | LOC: WOUND 13:01 | PROVIDERS: ATTEND Surgery | DX: E11.621 Type 2 diabetes mellitus with foot ulcer (principal); L97.521 Non-pressure chronic ulcer of other part of left foot limited to breakdown of skin; E11.69 Type 2 diabetes mellitus with other specified complication; M86.672 Other chronic osteomyelitis, left ankle and foot; E11.22 Type 2 diabetes mellitus with diabetic chronic kidney disease; I12.0 Hypertensive chronic kidney disease with stage 5 chronic kidney disease or end stage renal disease; N18.6 End stage renal disease; F32.9 Major depressive disorder, single episode, unspecified; Z99.2 Dependence on renal dialysis | CPT/HCPCS: 82962; 99183; G0277 ==

== ENCOUNTER 2019-01-19 12:46 | Outpatient (CLI) | payer MEDICARE | END 2019-01-19 12:47 | disposition home or self-care (01) | LOC: WOUND 12:46 | PROVIDERS: ATTEND Surgery | DX: E11.621 Type 2 diabetes mellitus with foot ulcer (principal); L97.521 Non-pressure chronic ulcer of other part of left foot limited to breakdown of skin; E11.69 Type 2 diabetes mellitus with other specified complication; M86.672 Other chronic osteomyelitis, left ankle and foot; E11.22 Type 2 diabetes mellitus with diabetic chronic kidney disease; I12.0 Hypertensive chronic kidney disease with stage 5 chronic kidney disease or end stage renal disease; N18.6 End stage renal disease; F32.9 Major depressive disorder, single episode, unspecified | CPT/HCPCS: 82962; G0277; 99183 ==

== ENCOUNTER 2019-01-20 13:13 | Outpatient (CLI) | payer MEDICARE | END 2019-01-20 13:14 | disposition home or self-care (01) | LOC: WOUND 13:13 | PROVIDERS: ATTEND Surgery | DX: E11.621 Type 2 diabetes mellitus with foot ulcer (principal); L97.521 Non-pressure chronic ulcer of other part of left foot limited to breakdown of skin; E11.69 Type 2 diabetes mellitus with other specified complication; M86.672 Other chronic osteomyelitis, left ankle and foot; E11.22 Type 2 diabetes mellitus with diabetic chronic kidney disease; I12.0 Hypertensive chronic kidney disease with stage 5 chronic kidney disease or end stage renal disease; N18.6 End stage renal disease; F32.9 Major depressive disorder, single episode, unspecified; Z99.2 Dependence on renal dialysis | CPT/HCPCS: 82962; G0277; 99183 ==

== ENCOUNTER 2019-01-23 13:35 | Outpatient (CLI) | payer MEDICARE | END 2019-01-23 13:36 | disposition home or self-care (01) | LOC: WOUND 13:35 | PROVIDERS: ATTEND Surgery | DX: E11.621 Type 2 diabetes mellitus with foot ulcer (principal); L97.521 Non-pressure chronic ulcer of other part of left foot limited to breakdown of skin; E11.69 Type 2 diabetes mellitus with other specified complication; M86.672 Other chronic osteomyelitis, left ankle and foot; E11.22 Type 2 diabetes mellitus with diabetic chronic kidney disease; I12.0 Hypertensive chronic kidney disease with stage 5 chronic kidney disease or end stage renal disease; N18.6 End stage renal disease; F32.9 Major depressive disorder, single episode, unspecified; Z99.2 Dependence on renal dialysis | CPT/HCPCS: 82962; 99183; G0277 ==

== ENCOUNTER 2019-01-24 11:40 | Outpatient (CLI) | payer MEDICARE | END 2019-01-24 11:41 | disposition home or self-care (01) | LOC: WOUND 11:40 | PROVIDERS: ATTEND Surgery | DX: E11.621 Type 2 diabetes mellitus with foot ulcer (principal); L97.526 Non-pressure chronic ulcer of other part of left foot with bone involvement without evidence of necrosis; E11.69 Type 2 diabetes mellitus with other specified complication; M86.672 Other chronic osteomyelitis, left ankle and foot; E11.22 Type 2 diabetes mellitus with diabetic chronic kidney disease; I12.0 Hypertensive chronic kidney disease with stage 5 chronic kidney disease or end stage renal disease; N18.6 End stage renal disease; F32.9 Major depressive disorder, single episode, unspecified | CPT/HCPCS: 11044; 11047; 97605; G0277; 82962; 99183 ==

== ENCOUNTER 2019-01-25 13:13 | Outpatient (CLI) | payer MEDICARE | END 2019-01-25 13:14 | disposition home or self-care (01) | LOC: WOUND 13:13 | PROVIDERS: ATTEND Surgery | DX: E11.621 Type 2 diabetes mellitus with foot ulcer (principal); L97.521 Non-pressure chronic ulcer of other part of left foot limited to breakdown of skin; E11.69 Type 2 diabetes mellitus with other specified complication; M86.672 Other chronic osteomyelitis, left ankle and foot; E11.22 Type 2 diabetes mellitus with diabetic chronic kidney disease; I12.0 Hypertensive chronic kidney disease with stage 5 chronic kidney disease or end stage renal disease; N18.6 End stage renal disease; F32.9 Major depressive disorder, single episode, unspecified; Z99.2 Dependence on renal dialysis | CPT/HCPCS: 82962; G0277; 99183 ==

== ENCOUNTER 2019-01-27 12:45 | Outpatient (CLI) | payer MEDICARE | END 2019-01-27 12:46 | disposition home or self-care (01) | LOC: WOUND 12:45 | PROVIDERS: ATTEND Surgery | DX: E11.621 Type 2 diabetes mellitus with foot ulcer (principal); L97.521 Non-pressure chronic ulcer of other part of left foot limited to breakdown of skin; E11.69 Type 2 diabetes mellitus with other specified complication; M86.672 Other chronic osteomyelitis, left ankle and foot; E11.22 Type 2 diabetes mellitus with diabetic chronic kidney disease; I12.0 Hypertensive chronic kidney disease with stage 5 chronic kidney disease or end stage renal disease; N18.6 End stage renal disease; F32.9 Major depressive disorder, single episode, unspecified | CPT/HCPCS: 82962; G0277; 99183 ==

== ENCOUNTER 2019-01-30 12:53 | Outpatient (CLI) | payer MEDICARE | END 2019-01-30 12:54 | disposition home or self-care (01) | LOC: WOUND 12:53 | PROVIDERS: ATTEND Surgery | DX: E11.621 Type 2 diabetes mellitus with foot ulcer (principal); L97.521 Non-pressure chronic ulcer of other part of left foot limited to breakdown of skin; E11.69 Type 2 diabetes mellitus with other specified complication; M86.672 Other chronic osteomyelitis, left ankle and foot; E11.22 Type 2 diabetes mellitus with diabetic chronic kidney disease; I12.0 Hypertensive chronic kidney disease with stage 5 chronic kidney disease or end stage renal disease; N18.6 End stage renal disease; F32.9 Major depressive disorder, single episode, unspecified | CPT/HCPCS: 82962; G0277; 99183 ==

== ENCOUNTER 2019-01-31 12:23 | Outpatient (CLI) | payer MEDICARE ==
[2019-01-31] MEDS ORDERED: XYLOCAINE TOPICAL 4% TP ONE (13:00)
== END 2019-01-31 12:24 | disposition home or self-care (01) ==
LOC: WOUND 12:23
PROVIDERS: ATTEND Surgery
DX: E11.621 Type 2 diabetes mellitus with foot ulcer (principal); L97.521 Non-pressure chronic ulcer of other part of left foot limited to breakdown of skin; E11.69 Type 2 diabetes mellitus with other specified complication; M86.672 Other chronic osteomyelitis, left ankle and foot; E11.22 Type 2 diabetes mellitus with diabetic chronic kidney disease; I12.0 Hypertensive chronic kidney disease with stage 5 chronic kidney disease or end stage renal disease; N18.6 End stage renal disease; F32.9 Major depressive disorder, single episode, unspecified
CPT/HCPCS: 82962; 97605; G0277; 99183

== ENCOUNTER 2019-02-01 12:40 | Outpatient (CLI) | payer MEDICARE | END 2019-02-01 12:41 | disposition home or self-care (01) | LOC: WOUND 12:40 | PROVIDERS: ATTEND Surgery | DX: E11.621 Type 2 diabetes mellitus with foot ulcer (principal); L97.521 Non-pressure chronic ulcer of other part of left foot limited to breakdown of skin; E11.69 Type 2 diabetes mellitus with other specified complication; M86.672 Other chronic osteomyelitis, left ankle and foot; E11.22 Type 2 diabetes mellitus with diabetic chronic kidney disease; I12.0 Hypertensive chronic kidney disease with stage 5 chronic kidney disease or end stage renal disease; N18.6 End stage renal disease; F32.9 Major depressive disorder, single episode, unspecified | CPT/HCPCS: 82962; 99183; G0277 ==

== ENCOUNTER 2019-02-03 12:31 | Outpatient (CLI) | payer MEDICARE | END 2019-02-03 12:32 | disposition home or self-care (01) | LOC: WOUND 12:31 | PROVIDERS: ATTEND Surgery | DX: E11.621 Type 2 diabetes mellitus with foot ulcer (principal); L97.522 Non-pressure chronic ulcer of other part of left foot with fat layer exposed; E11.69 Type 2 diabetes mellitus with other specified complication; M86.672 Other chronic osteomyelitis, left ankle and foot; E11.22 Type 2 diabetes mellitus with diabetic chronic kidney disease; I12.0 Hypertensive chronic kidney disease with stage 5 chronic kidney disease or end stage renal disease; N18.6 End stage renal disease; F32.9 Major depressive disorder, single episode, unspecified | CPT/HCPCS: 11042; 11045; 82962; 87075; 87076; 87116; 87186; G0277; 99183 ==

== ENCOUNTER 2019-02-06 12:54 | Outpatient (CLI) | payer MEDICARE | END 2019-02-06 12:55 | disposition home or self-care (01) | LOC: WOUND 12:54 | PROVIDERS: ATTEND Surgery | DX: E11.621 Type 2 diabetes mellitus with foot ulcer (principal); L97.521 Non-pressure chronic ulcer of other part of left foot limited to breakdown of skin; E11.69 Type 2 diabetes mellitus with other specified complication; M86.672 Other chronic osteomyelitis, left ankle and foot; E11.22 Type 2 diabetes mellitus with diabetic chronic kidney disease; I12.0 Hypertensive chronic kidney disease with stage 5 chronic kidney disease or end stage renal disease; N18.6 End stage renal disease; F32.9 Major depressive disorder, single episode, unspecified | CPT/HCPCS: 82962; G0277; 99183 ==

== ENCOUNTER 2019-02-07 12:08 | Outpatient (CLI) | payer MEDICARE ==
[2019-02-07] MEDS ORDERED: LIDOCAINE (4%) 40 MG/ML TOPICAL SOLN 50 ML BOTTLE TP ONE (12:10)
[2019-02-07] MEDS ORDERED: SILVER NITRATE APPLICATOR 1 EA TP ONE (12:10)
== END 2019-02-07 12:09 | disposition home or self-care (01) ==
LOC: WOUND 12:08
PROVIDERS: ATTEND Surgery
DX: E11.621 Type 2 diabetes mellitus with foot ulcer (principal); L97.523 Non-pressure chronic ulcer of other part of left foot with necrosis of muscle; E11.69 Type 2 diabetes mellitus with other specified complication; M86.672 Other chronic osteomyelitis, left ankle and foot; E11.22 Type 2 diabetes mellitus with diabetic chronic kidney disease; I12.0 Hypertensive chronic kidney disease with stage 5 chronic kidney disease or end stage renal disease; N18.6 End stage renal disease; F32.9 Major depressive disorder, single episode, unspecified
CPT/HCPCS: 11042; 11043; 11045; 82962; 97597; G0277; 99183

== ENCOUNTER 2019-02-08 13:01 | Outpatient (CLI) | payer MEDICARE | END 2019-02-08 13:02 | disposition home or self-care (01) | LOC: WOUND 13:01 | PROVIDERS: ATTEND Surgery | DX: E11.621 Type 2 diabetes mellitus with foot ulcer (principal); L97.521 Non-pressure chronic ulcer of other part of left foot limited to breakdown of skin; E11.69 Type 2 diabetes mellitus with other specified complication; M86.672 Other chronic osteomyelitis, left ankle and foot; E11.22 Type 2 diabetes mellitus with diabetic chronic kidney disease; I12.0 Hypertensive chronic kidney disease with stage 5 chronic kidney disease or end stage renal disease; N18.6 End stage renal disease; F32.9 Major depressive disorder, single episode, unspecified | CPT/HCPCS: 82962; 99183; G0277 ==

== ENCOUNTER 2019-02-09 12:45 | Outpatient (CLI) | payer MEDICARE | END 2019-02-09 12:46 | disposition home or self-care (01) | LOC: WOUND 12:45 | PROVIDERS: ATTEND Surgery | DX: E11.621 Type 2 diabetes mellitus with foot ulcer (principal); L97.521 Non-pressure chronic ulcer of other part of left foot limited to breakdown of skin; E11.69 Type 2 diabetes mellitus with other specified complication; M86.672 Other chronic osteomyelitis, left ankle and foot; E11.22 Type 2 diabetes mellitus with diabetic chronic kidney disease; I12.0 Hypertensive chronic kidney disease with stage 5 chronic kidney disease or end stage renal disease; N18.6 End stage renal disease; F32.9 Major depressive disorder, single episode, unspecified | CPT/HCPCS: 82962; G0277; G0463; 99183; 99213 ==

== ENCOUNTER 2019-02-10 12:40 | Outpatient (CLI) | payer MEDICARE | END 2019-02-10 12:41 | disposition home or self-care (01) | LOC: WOUND 12:40 | PROVIDERS: ATTEND Surgery | DX: E11.621 Type 2 diabetes mellitus with foot ulcer (principal); L97.521 Non-pressure chronic ulcer of other part of left foot limited to breakdown of skin; E11.69 Type 2 diabetes mellitus with other specified complication; M86.672 Other chronic osteomyelitis, left ankle and foot; E11.22 Type 2 diabetes mellitus with diabetic chronic kidney disease; I12.0 Hypertensive chronic kidney disease with stage 5 chronic kidney disease or end stage renal disease; N18.6 End stage renal disease; F32.9 Major depressive disorder, single episode, unspecified | CPT/HCPCS: 82962; G0277; 99183 ==

== ENCOUNTER 2019-02-13 12:23 | Outpatient (CLI) | payer MEDICARE | END 2019-02-13 12:24 | disposition home or self-care (01) | LOC: WOUND 12:23 | PROVIDERS: ATTEND Surgery | DX: E11.621 Type 2 diabetes mellitus with foot ulcer (principal); L97.521 Non-pressure chronic ulcer of other part of left foot limited to breakdown of skin; E11.69 Type 2 diabetes mellitus with other specified complication; M86.672 Other chronic osteomyelitis, left ankle and foot; E11.22 Type 2 diabetes mellitus with diabetic chronic kidney disease; I12.0 Hypertensive chronic kidney disease with stage 5 chronic kidney disease or end stage renal disease; N18.6 End stage renal disease; F32.9 Major depressive disorder, single episode, unspecified | CPT/HCPCS: 82962; G0277; 99183 ==

== ENCOUNTER 2019-02-14 12:22 | Outpatient (CLI) | payer MEDICARE ==
[2019-02-14] MEDS ORDERED: LIDOCAINE (4%) 40 MG/ML TOPICAL SOLN 50 ML BOTTLE TP ONE (12:24)
== END 2019-02-14 12:23 | disposition home or self-care (01) ==
LOC: WOUND 12:22
PROVIDERS: ATTEND Surgery
DX: E11.621 Type 2 diabetes mellitus with foot ulcer (principal); L97.521 Non-pressure chronic ulcer of other part of left foot limited to breakdown of skin; E11.69 Type 2 diabetes mellitus with other specified complication; M86.672 Other chronic osteomyelitis, left ankle and foot; E11.22 Type 2 diabetes mellitus with diabetic chronic kidney disease; I12.0 Hypertensive chronic kidney disease with stage 5 chronic kidney disease or end stage renal disease; N18.6 End stage renal disease; F32.9 Major depressive disorder, single episode, unspecified
CPT/HCPCS: 11042; 11043; 11045; G0277; 99183

== ENCOUNTER 2019-02-16 13:10 | Outpatient (CLI) | payer MEDICARE | END 2019-02-16 13:11 | disposition home or self-care (01) | LOC: WOUND 13:10 | PROVIDERS: ATTEND Surgery | DX: E11.621 Type 2 diabetes mellitus with foot ulcer (principal); L97.521 Non-pressure chronic ulcer of other part of left foot limited to breakdown of skin; E11.69 Type 2 diabetes mellitus with other specified complication; M86.672 Other chronic osteomyelitis, left ankle and foot; E11.22 Type 2 diabetes mellitus with diabetic chronic kidney disease; I12.0 Hypertensive chronic kidney disease with stage 5 chronic kidney disease or end stage renal disease; N18.6 End stage renal disease; F32.9 Major depressive disorder, single episode, unspecified | CPT/HCPCS: 82962; G0277; 99183 ==

== ENCOUNTER 2019-02-17 12:51 | Outpatient (CLI) | payer MEDICARE ==
[2019-02-17] MEDS ORDERED: LIDOCAINE (4%) 40 MG/ML TOPICAL SOLN 50 ML BOTTLE TP ONE (13:07)
== END 2019-02-17 12:52 | disposition home or self-care (01) ==
LOC: WOUND 12:51
PROVIDERS: ATTEND Surgery
DX: E11.621 Type 2 diabetes mellitus with foot ulcer (principal); L97.521 Non-pressure chronic ulcer of other part of left foot limited to breakdown of skin; E11.69 Type 2 diabetes mellitus with other specified complication; M86.672 Other chronic osteomyelitis, left ankle and foot; E11.22 Type 2 diabetes mellitus with diabetic chronic kidney disease; I12.0 Hypertensive chronic kidney disease with stage 5 chronic kidney disease or end stage renal disease; N18.6 End stage renal disease; F32.9 Major depressive disorder, single episode, unspecified
CPT/HCPCS: 82962; 99183; G0277

== ENCOUNTER 2019-02-20 12:36 | Outpatient (CLI) | payer MEDICARE | END 2019-02-20 12:37 | disposition home or self-care (01) | LOC: WOUND 12:36 | PROVIDERS: ATTEND Surgery | DX: E11.621 Type 2 diabetes mellitus with foot ulcer (principal); L97.521 Non-pressure chronic ulcer of other part of left foot limited to breakdown of skin; E11.69 Type 2 diabetes mellitus with other specified complication; M86.672 Other chronic osteomyelitis, left ankle and foot; E11.22 Type 2 diabetes mellitus with diabetic chronic kidney disease; I12.0 Hypertensive chronic kidney disease with stage 5 chronic kidney disease or end stage renal disease; N18.6 End stage renal disease; F32.9 Major depressive disorder, single episode, unspecified | CPT/HCPCS: 82962; 99183; G0277 ==

== ENCOUNTER 2019-02-21 12:09 | Outpatient (CLI) | payer MEDICARE | END 2019-02-21 12:10 | disposition home or self-care (01) | LOC: WOUND 12:09 | PROVIDERS: ATTEND Surgery | DX: E11.621 Type 2 diabetes mellitus with foot ulcer (principal); L97.521 Non-pressure chronic ulcer of other part of left foot limited to breakdown of skin; L84 Corns and callosities; E11.69 Type 2 diabetes mellitus with other specified complication; M86.672 Other chronic osteomyelitis, left ankle and foot; E11.22 Type 2 diabetes mellitus with diabetic chronic kidney disease; I12.0 Hypertensive chronic kidney disease with stage 5 chronic kidney disease or end stage renal disease; N18.6 End stage renal disease; F32.9 Major depressive disorder, single episode, unspecified | CPT/HCPCS: 11042; 11043; 11045; G0277; 82962; 99183 ==

== ENCOUNTER 2019-02-22 12:40 | Outpatient (CLI) | payer MEDICARE | END 2019-02-22 12:41 | disposition home or self-care (01) | LOC: WOUND 12:40 | PROVIDERS: ATTEND Surgery | DX: E11.621 Type 2 diabetes mellitus with foot ulcer (principal); L97.521 Non-pressure chronic ulcer of other part of left foot limited to breakdown of skin; E11.69 Type 2 diabetes mellitus with other specified complication; M86.672 Other chronic osteomyelitis, left ankle and foot; E11.22 Type 2 diabetes mellitus with diabetic chronic kidney disease; I12.0 Hypertensive chronic kidney disease with stage 5 chronic kidney disease or end stage renal disease; N18.6 End stage renal disease; F32.9 Major depressive disorder, single episode, unspecified | CPT/HCPCS: 82962; 99183; G0277 ==

== ENCOUNTER 2019-02-23 13:08 | Outpatient (CLI) | payer MEDICARE | END 2019-02-23 13:09 | disposition home or self-care (01) | LOC: WOUND 13:08 | PROVIDERS: ATTEND Surgery | DX: E11.621 Type 2 diabetes mellitus with foot ulcer (principal); L97.521 Non-pressure chronic ulcer of other part of left foot limited to breakdown of skin | CPT/HCPCS: 82962 ==

== ENCOUNTER 2019-02-24 08:13 | Outpatient (CLI) | payer MEDICARE | END 2019-02-24 08:14 | disposition home or self-care (01) | LOC: WOUND 08:13 | PROVIDERS: ATTEND Surgery | DX: E11.621 Type 2 diabetes mellitus with foot ulcer (principal); L97.521 Non-pressure chronic ulcer of other part of left foot limited to breakdown of skin; L84 Corns and callosities; E11.69 Type 2 diabetes mellitus with other specified complication; M86.672 Other chronic osteomyelitis, left ankle and foot; E11.22 Type 2 diabetes mellitus with diabetic chronic kidney disease; I12.0 Hypertensive chronic kidney disease with stage 5 chronic kidney disease or end stage renal disease; N18.6 End stage renal disease; F32.9 Major depressive disorder, single episode, unspecified | CPT/HCPCS: 82962; G0463; 99215 ==

== ENCOUNTER 2019-02-28 11:51 | Outpatient (CLI) | payer MEDICARE | END 2019-02-28 11:52 | disposition home or self-care (01) | LOC: WOUND 11:51 | PROVIDERS: ATTEND Surgery | DX: E11.621 Type 2 diabetes mellitus with foot ulcer (principal); L97.521 Non-pressure chronic ulcer of other part of left foot limited to breakdown of skin; L84 Corns and callosities; E11.69 Type 2 diabetes mellitus with other specified complication; M86.672 Other chronic osteomyelitis, left ankle and foot; E11.22 Type 2 diabetes mellitus with diabetic chronic kidney disease; I12.0 Hypertensive chronic kidney disease with stage 5 chronic kidney disease or end stage renal disease; N18.6 End stage renal disease; F32.9 Major depressive disorder, single episode, unspecified ==

== ENCOUNTER 2019-03-28 13:55 | Outpatient (CLI) | payer MEDICARE ==
[2019-03-28] MEDS ORDERED: LIDOCAINE (4%) 40 MG/ML TOPICAL SOLN 50 ML BOTTLE TP ONE (13:59)
== END 2019-03-28 13:56 | disposition home or self-care (01) ==
LOC: WOUND 13:55
PROVIDERS: ATTEND Surgery
DX: E11.621 Type 2 diabetes mellitus with foot ulcer (principal); L97.521 Non-pressure chronic ulcer of other part of left foot limited to breakdown of skin; L84 Corns and callosities; E11.69 Type 2 diabetes mellitus with other specified complication; M86.672 Other chronic osteomyelitis, left ankle and foot; E11.22 Type 2 diabetes mellitus with diabetic chronic kidney disease; I12.0 Hypertensive chronic kidney disease with stage 5 chronic kidney disease or end stage renal disease; N18.6 End stage renal disease; F32.9 Major depressive disorder, single episode, unspecified

== ENCOUNTER 2019-04-04 12:59 | Outpatient (CLI) | payer MEDICARE ==
[2019-04-04] MEDS ORDERED: LIDOCAINE (4%) 40 MG/ML TOPICAL SOLN 50 ML BOTTLE TP ONE (14:19)
== END 2019-04-04 13:00 | disposition home or self-care (01) ==
LOC: WOUND 12:59
PROVIDERS: ATTEND Surgery
DX: E11.621 Type 2 diabetes mellitus with foot ulcer (principal); L97.521 Non-pressure chronic ulcer of other part of left foot limited to breakdown of skin; L84 Corns and callosities; E11.69 Type 2 diabetes mellitus with other specified complication; M86.672 Other chronic osteomyelitis, left ankle and foot; E11.22 Type 2 diabetes mellitus with diabetic chronic kidney disease; I12.0 Hypertensive chronic kidney disease with stage 5 chronic kidney disease or end stage renal disease; N18.6 End stage renal disease; F32.9 Major depressive disorder, single episode, unspecified
CPT/HCPCS: 97597

== ENCOUNTER 2019-04-11 11:58 | Observation (INO) | payer MEDICARE ==
[2019-04-11] MEDS ORDERED: HEPARIN 5,000 UNIT/1 ML VIAL SUB-Q NR (12:00)
[2019-04-11] MEDS ORDERED: ceFAZolin/STERILE WATER 2 GM/20 ML SYRINGE IV NR (12:00)
[2019-04-11] MEDS ORDERED: ONDANSETRON 4 MG/2 ML INJ IV PRN ×2 (12:04→22:19)
[2019-04-11] MEDS ORDERED: HYDROmorphone 1 MG/1 ML INJ IV PRN (12:04)
[2019-04-11] MEDS ORDERED: LACTATED RINGERS 1,000 ML IV SCH (13:00)
--- NOTE | 2019-04-11 13:16 | Anesthesia Day of Surgery ---
Anesthesia Day of Surgery - Day of Surgery Patient Examined: Yes Patient H&P Reviewed: Yes Patient is NPO: Yes
--- NOTE | 2019-04-11 13:20 | Anesthesia Consultation ---
Anesthesia Consult and Med Hx Date of service: 04/11/19 - Airway Anesthetic Teeth Evaluation: Good ROM Head & Neck: Adequate Mental/Hyoid Distance: Adequate Mallampati Class: Class II Intubation Access Assessment: Probably Good - Pre-Operative Health Status ASA Pre-Surgery Classification: ASA3 Proposed Anesthetic Plan: General - Pulmonary Hx Smoking: Yes (1PK EVERY 3-4 DAYS) Hx Sleep Apnea: No (REENA PRE SCREEN HIGH RISK) - Cardiovascular System Hx Coronary Artery Disease: Yes (Stent this year. +Cardiac clearance) Hx Cardia Arrhythmia: No Hx Peripheral Vascular Disease: Yes - Central Nervous System Hx Neuromuscular Disorder: Yes (Spinal cord infection in the past and lower extremity weakness) Hx Seizures: No Hx Back Pain: Yes (MRSA infection . CHRONIC PAIN) Hx Psychiatric Problems: Yes (Anxiety/Depression) - Gastrointestinal Hx Ulcer: No Hx Gastroesophageal Reflux Disease: Yes - Endocrine Hx Renal Disease: Yes Hx End Stage Renal Disease: Yes (14yrs; Last HD yesterday) Hx Insulin Dependent Diabetes: No Hx Non-Insulin Dependent Diabetes: (Hx of DM, no longer on metformin at doctor request) Hx Thyroid Disease: No - Hematic Hx Anemia: Yes - Other Systems Hx Cancer: No
[2019-04-11] MEDS ORDERED: SODIUM CHLORIDE 0.9% 1000 ML 1,000 ML IV SCH (13:30)
[2019-04-11 13:46] LABS: Hematocrit 26.9 % (35.5-45.6); Hemoglobin 8.6 gm/dl (11.8-15.2); Mean Corpuscular HGB Conc 32 % (32-34); Mean Corpuscular Volume 76 fl (84-94); Red Blood Count 3.56 M/mm3 (3.65-5.03)
[2019-04-11 13:49] LABS: Red Cell Distribution Width 25.4 % (13.2-15.2)
[2019-04-11 13:53] LABS: Calcium 9.3 mg/dL (8.4-10.2)
[2019-04-11] MEDS ORDERED: MIDAZOLAM 2 MG/2 ML INJ IV NR ×2 (14:00)
[2019-04-11 15:29] LABS: Total Cells Counted 100
[2019-04-11 15:30] LABS: Anisocytosis 2+; Giant Platelets 1+; Hypochromasia 1+; Platelet Clumps 1+
[2019-04-11 15:36] LABS: Platelet Count 92 K/mm3 (140-440)
[2019-04-11] MEDS ORDERED: fentaNYL 100 MCG/2 ML INJ ONE (15:38)
[2019-04-11] MEDS ORDERED: PROPOFOL 200 MG/20 ML VIAL IV ONE (15:38)
[2019-04-11] MEDS ORDERED: LIDOCAINE MPF (2%) 20 MG/1 ML VIAL 5 ML ONE (15:38)
[2019-04-11] MEDS ORDERED: oxyCODONE /ACETAMINOPHEN 5-325MG TAB PO PRN (17:14)
[2019-04-11] MEDS ORDERED: ONDANSETRON 4 MG/2 ML INJ ONE (17:16)
[2019-04-11] MEDS ORDERED: dexAMETHasone 20 MG/5 ML VIAL ONE (17:16)
--- NOTE | 2019-04-11 17:29 | Procedure Note ---
Date of procedure: 04/11/19 Pre-op diagnosis: Chronic osteomyelitis of left 2nd & 3rd metatarsal shafts Post-op diagnosis: same Procedure: TMA of left 2nd and 3rd toes Description of procedure: Pt was placed supine on the OR table. General anesthesia by LMA was administered. Pt's left foot was prepped and draped. An elliptical incision was made about the left 2nd and 3rd toes and the toes amputated at the MTP joints. Periosteum was elevated off of the 2nd metatarsal head and the distal metatarsal shaft amputated with a bone saw. The 3rd metatarsal head was no longer present secondary to the chronic osteomyelitis. The distal shaft of the 3rd metatarsal was identified and the periosteum elevated. The distal shaft of the 3rd metatarsal was then amputated with a bone saw. Wound was irrigated with warm saline and packed open with a dilute Betadine moistened Kerlix roll followed by a Kerlix roll about the foot and Wolf bandage. Pt tolerated the procedure well. He was taken to PACU in stable condition. Anesthesia: other (LMA) Surgeon: YURIDIA STEWART Estimated blood loss: 50-100ml Pathology: list (1) Left 2nd and 3rd toes 2) Left 2nd metatarsal head 3) Left 3r d metatarsal head) Specimen disposition: to lab Condition: stable Disposition: PACU
--- NOTE | 2019-04-11 18:56 | Post Anesthesia Evaluation ---
- Post Anesthesia Evaluation Patient Participated: Yes Airway Patent: Yes Stable Respiratory Function: Yes Nausea/Vomiting: No Temp > 96.8F: Yes Pain Manageable: Yes Adequeate Hydration: Yes Anesthesia Complications: No Block Receding Appropriately: Not Applicable Patient on Ventilator: No
[2019-04-11] MEDS ORDERED: MORPHINE 2 MG/1 ML INJ IV PRN (22:06)
[2019-04-11] MEDS ORDERED: ACETAMINOPHEN 325 MG TAB PO PRN (22:19)
--- NOTE | 2019-04-11 22:21 | History and Physical Report ---
History of Present Illness Date of admission: 04/11/19 18:08 History of present illness: 54-year-old man with a history of hypertension, GERD, hyperlipidemia, end-stage renal disease on dialysis Wednesday, Wednesday, status post TMA of the left second and third toe. Patient did well after surgery, however he stated that his equine manager Dr. Keller wanted him to be observed overnight because he developed complications after he had his fourth fifth toes amputated. States that he has a catheter in his right thigh that has not been used with dialysis over the last 2 months and he needs it to be taken out. The patient has an appointment scheduled for the removal, he currently has no other complaints Review Of Systems: Constitutional: no weight loss, fever, chills Ears, eyes, nose, mouth and throat: no nasal congestion, no nasal discharge, no sinus pressure, blurry vision, diplopia Neck: No neck pain or rigidity. Cardiovascular: No palpitations, chest pain Respiratory: No shortness of breath, cough Gastrointestinal: No hematochezia Genitourinary : no dysuria, frequency Musculoskeletal: no muscle ache , joint pain Integumentary: no rash, no pruritis Neurological: no parathesias, focal weakness Endocrine: no cold or heat intolerance, no polyuria or polydipsia Hematologic/Lymphatic: no easy bruising, no easy bleeding, no gland swelling Allergic/Immunologic: no urticaria, no angioedema. PAST MEDICAL HISTORY: hypertension, GERD, hyperlipidemia, end-stage renal disease PAST SURGICAL HISTORY: TMA of the second and third toe, AV fistula SOCIAL HISTORY: Denies alcohol, tobacco, drugs FAMILY HISTORY: Hypertension Medications and Allergies Allergies Allergy/AdvReac Type Severity Reaction Status Date / Time No Known Allergies Allergy Verified 04/10/19 15:18 Home Medications Medication Instructions Recorded Confirmed Last Taken Type Aspirin 325 mg PO QDAY #30 tablet 07/28/18 04/10/19 04/04/19 08:00 Rx Midodrine [Proamatine] 5 mg PO TID #90 tablet 07/28/18 04/10/19 04/10/19 08:00 Rx Multivitamin Tab [Multiple Vitamin 1 each PO QDAY #30 tablet 07/28/18 04/10/19 04/10/19 08:00 Rx TAB (Theragran)] Sevelamer Carbonate [Renvela] 4,000 mg PO TIDWM #30 tablet 07/28/18 04/10/19 04/10/19 08:00 Rx AtorvaSTATin [Lipitor] 40 mg PO QHS #30 tablet 10/21/18 04/10/19 04/10/19 08:00 Rx Clopidogrel [Plavix] 75 mg PO QDAY #30 tablet 10/21/18 04/10/19 04/04/19 08:00 Rx carvediloL [Coreg] 3.125 mg PO BID tablet 10/21/18 04/10/19 11/07/18 Rx traZODone [Desyrel] 50 mg PO BID 10/31/18 04/11/19 04/10/19 08:00 History Famotidine [Pepcid] 10 mg PO BID tablet 11/23/18 04/10/19 Unknown Rx ALPRAZolam [Xanax TAB] 2 mg PO TID PRN 04/10/19 04/10/19 04/10/19 08:00 History Oxycodone HCl/Acetaminophen 1 each PO Q6HR PRN 04/10/19 04/10/19 Unknown History [Percocet 10/325 mg] Pregabalin [Lyrica] 100 mg PO BID 04/10/19 04/10/19 Unknown History Sertraline [Zoloft] 100 mg PO QDAY 04/10/19 04/10/19 04/10/19 08:00 History Zolpidem [Ambien] 10 mg PO QHS 04/10/19 04/10/19 04/10/19 08:00 History cycloSPORINE [Restasis] 1 each OP BID 04/10/19 04/11/19 04/11/19 06:00 History tiZANidine [Zanaflex 4mg TAB] 4 mg PO DAILY 04/10/19 04/10/19 Unknown History oxyCODONE /ACETAMINOPHEN [Percocet 1 tab PO Q6HR PRN #40 tab 04/11/19 Unknown Rx 5/325] Active Meds: Active Medications Hydromorphone HCl (Dilaudid) 0.5 mg IV Q10MIN PRN PRN Reason: Pain , Severe (7-10) Stop: 04/11/19 23:59 Hydromorphone HCl (Dilaudid) 0.5 mg IV Q3H PRN PRN Reason: Pain , Severe (7-10) Sodium Chloride (Nacl 0.9% 1000 Ml) 1,000 mls @ 42 mls/hr IV DIRECT KWAME Last Admin: 04/11/19 13:45 Dose: 42 mls/hr Documented by: Midazolam HCl (Versed) 2 mg IV PREOP NR Stop: 04/11/19 23:59 Last Admin: 04/11/19 13:45 Dose: 2 mg Documented by: Midazolam HCl (Versed) 4 mg IV PREOP NR Stop: 04/11/19 23:59 Last Admin: 04/11/19 14:05 Dose: 4 mg Documented by: Morphine Sulfate (Morphine) 2 mg IV Q4H PRN PRN Reason: Pain, Moderate (4-6) Ondansetron HCl (Zofran) 4 mg IV ONCE PRN PRN Reason: Nausea And Vomiting Exam - Physical Exam Narrative exam: Gen. appearance: Patient lying in bed, no apparent distress HEENT: Normocephalic, atraumatic, pupils equally round and reactive to light, extraocular movement intact, and no sclericterus,. No JVD or thyromegaly or nodule,neck supple, no carotid bruit ,mucous membranes moist, no exudate or erythema Heart: S1, S2, regular rate and rhythm Lungs: Clear bilaterally, breathing comfortable Abdomen: Positive bowel sounds, nontender, nondistended, no organomegaly Extremity: Left foot in the bandage , no edema, cyanosis, clubbing Skin: No rash, nodules, warm, dry Neuro: speech is fluent, moves extremities, sensory intact - Constitutional Vitals: Temp Pulse Resp BP Pulse Ox 97.3 F L 78 18 131/79 97 04/11/19 20:11 04/11/19 20:11 04/11/19 20:11 04/11/19 20:11 04/11/19 20:11 Results - Labs CBC & Chem 7: 04/11/19 13:08 04/11/19 13:08 Labs: Abnormal lab results 04/11/19 04/11/19 04/11/19 Range/Units 13:08 13:08 21:44 WBC 4.2 L (4.5-11.0) K/mm3 RBC 3.56 L (3.65-5.03) M/mm3 Hgb 8.6 L (11.8-15.2) gm/dl Hct 26.9 L (35.5-45.6) % MCV 76 L (84-94) fl MCH 24 L (28-32) pg RDW 25.4 H (13.2-15.2) % Plt Count 92 L (140-440) K/mm3 Monocytes % (Manual) 10.0 H (0.0-7.3) % Eosinophils % (Manual) 5.0 H (0.0-4.3) % Seg Neutrophils # Man 0.0 L (1.8-7.7) K/mm3 Lymphocytes # (Manual) 0.0 L (1.2-5.4) K/mm3 Chloride 93.6 L (98-107) mmol/L Carbon Dioxide 34 H (22-30) mmol/L BUN 24 H (9-20) mg/dL Creatinine 6.2 H (0.8-1.5) mg/dL POC Glucose 117 H (70-105) Total Protein 8.8 H (6.3-8.2) g/dL Assessment and Plan Assessment End-stage renal disease Patient scheduled for dialysis tomorrow, consult renal Status post TMA of the second and third toe Start pain medication, observe Dr. Keller is consulted to see the patient Hypertension Start outpatient medications Thrombocytopenia
[2019-04-12] MEDS ORDERED: ALPRAZolam 1 MG TAB PO PRN (00:30)
[2019-04-12] MEDS: MIDODRINE 5 MG TAB PO SCH ×3 (08:17→19:58)
[2019-04-12] MEDS: SEVELAMER CARBONATE 800 MG TAB PO SCH ×3 (08:18→17:25)
[2019-04-12] MEDS: FAMOTIDINE 10 MG TAB PO SCH (09:29)
[2019-04-12] MEDS: PREGABALIN 75 MG CAP PO SCH (09:29)
[2019-04-12] MEDS: PREGABALIN 25 MG CAP PO SCH (09:29)
[2019-04-12] MEDS: carvediloL 3.125 MG TAB PO SCH (09:29)
[2019-04-12] MEDS ORDERED: CLOPIDOGREL 75 MG TAB PO SCH (10:00)
[2019-04-12] MEDS ORDERED: SERTRALINE 100 MG TAB PO SCH (10:00)
[2019-04-12] MEDS ORDERED: MULTIVITAMINS ,THERAPEUTIC TAB PO SCH (10:00)
[2019-04-12] MEDS ORDERED: CYCLOSPORINE OP SCH (10:00)
[2019-04-12] MEDS ORDERED: ASPIRIN 325 MG TAB PO SCH (10:00)
[2019-04-12 10:16] LABS: Hematocrit 24.4 % (35.5-45.6); Hemoglobin 7.8 gm/dl (11.8-15.2); Mean Corpuscular HGB Conc 32 % (32-34); Mean Corpuscular Volume 76 fl (84-94); Red Blood Count 3.22 M/mm3 (3.65-5.03)
[2019-04-12 10:33] LABS: Calcium 8.9 mg/dL (8.4-10.2)
[2019-04-12 10:35] LABS: Platelet Count 96 K/mm3 (140-440); Red Cell Distribution Width 25.4 % (13.2-15.2)
[2019-04-12] MEDS ORDERED: SODIUM CHLORIDE 0.9% 100 ML IV PRN (10:43)
--- NOTE | 2019-04-12 10:45 | Consultation ---
History of Present Illness - Reason for Consult Consult date: 04/12/19 end stage renal disease - History of Present Illness HPI: Mr Almeida is 54-year-old man with a history of hypertension, GERD, hyperlipidemia, end-stage renal disease on dialysis Wednesday, Wednesday, status post TMA of the left second and third toe who has been admitted to the hospital. Pt is on HD MWF. He currently denies N/V, SHOB, belly pain, diarrhea. ROS: As in HPI otherwise 12 point review of systems -ve PAST MEDICAL HISTORY: hypertension, GERD, hyperlipidemia, end-stage renal disease PAST SURGICAL HISTORY: TMA of the second and third toe, AV fistula SOCIAL HISTORY: Denies alcohol, tobacco, drugs FAMILY HISTORY: Hypertension Medications and Allergies Allergies Allergy/AdvReac Type Severity Reaction Status Date / Time No Known Allergies Allergy Verified 04/10/19 15:18 Home Medications Medication Instructions Recorded Confirmed Last Taken Type Aspirin 325 mg PO QDAY #30 tablet 07/28/18 04/10/19 04/04/19 08:00 Rx Midodrine [Proamatine] 5 mg PO TID #90 tablet 07/28/18 04/10/19 04/10/19 08:00 Rx Multivitamin Tab [Multiple Vitamin 1 each PO QDAY #30 tablet 07/28/18 04/10/19 04/10/19 08:00 Rx TAB (Theragran)] Sevelamer Carbonate [Renvela] 4,000 mg PO TIDWM #30 tablet 07/28/18 04/10/19 04/10/19 08:00 Rx AtorvaSTATin [Lipitor] 40 mg PO QHS #30 tablet 10/21/18 04/10/19 04/10/19 08:00 Rx Clopidogrel [Plavix] 75 mg PO QDAY #30 tablet 10/21/18 04/10/19 04/04/19 08:00 Rx carvediloL [Coreg] 3.125 mg PO BID tablet 10/21/18 04/10/19 11/07/18 Rx traZODone [Desyrel] 50 mg PO BID 10/31/18 04/11/19 04/10/19 08:00 History Famotidine [Pepcid] 10 mg PO BID tablet 11/23/18 04/10/19 Unknown Rx ALPRAZolam [Xanax TAB] 2 mg PO TID PRN 04/10/19 04/10/19 04/10/19 08:00 History Oxycodone HCl/Acetaminophen 1 each PO Q6HR PRN 04/10/19 04/10/19 Unknown History [Percocet 10/325 mg] Pregabalin [Lyrica] 100 mg PO BID 04/10/19 04/10/19 Unknown History Sertraline [Zoloft] 100 mg PO QDAY 04/10/19 04/10/19 04/10/19 08:00 History Zolpidem [Ambien] 10 mg PO QHS 04/10/19 04/10/19 04/10/19 08:00 History cycloSPORINE [Restasis] 1 each OP BID 04/10/19 04/11/19 04/11/19 06:00 History tiZANidine [Zanaflex 4mg TAB] 4 mg PO DAILY 04/10/19 04/10/19 Unknown History oxyCODONE /ACETAMINOPHEN [Percocet 1 tab PO Q6HR PRN #40 tab 04/11/19 Unknown Rx 5/325] Active Meds: Active Medications Acetaminophen (Tylenol) 650 mg PO Q4H PRN PRN Reason: Pain MILD(1-3)/Fever >100.5/WEST Alprazolam (Xanax) 2 mg PO TID PRN PRN Reason: Anxiety Aspirin (Aspirin) 325 mg PO QDAY [facility] Last Admin: 04/12/19 09:29 Dose: 325 mg Documented by: Atorvastatin Calcium (Lipitor) 40 mg PO QHS [facility] Carvedilol (Coreg) 3.125 mg PO BID [facility] Last Admin: 04/12/19 09:29 Dose: Not Given Documented by: Clopidogrel Bisulfate (Plavix) 75 mg PO QDAY [facility] Last Admin: 04/12/19 09:29 Dose: 75 mg Documented by: Famotidine (Pepcid) 10 mg PO BID [facility] Last Admin: 04/12/19 09:29 Dose: 10 mg Documented by: Hydromorphone HCl (Dilaudid) 0.5 mg IV Q3H PRN PRN Reason: Pain , Severe (7-10) Midodrine (Proamatine) 5 mg PO TID [facility] Last Admin: 04/12/19 08:17 Dose: 5 mg Documented by: Miscellaneous Medication (Cyclosporine [Restasis]) 1 each OP BID [facility] Multivitamins (Theragran Tab) 1 each PO QDAY [facility] Last Admin: 04/12/19 09:29 Dose: 1 each Documented by: Ondansetron HCl (Zofran) 4 mg IV Q8H PRN PRN Reason: Nausea And Vomiting Pregabalin (Pregabalin) 75 mg PO BID [facility] Last Admin: 04/12/19 09:29 Dose: 75 mg Documented by: Pregabalin (Pregabalin) 25 mg PO BID [facility] Last Admin: 04/12/19 09:29 Dose: 25 mg Documented by: Sertraline HCl (Zoloft) 100 mg PO QDAY [facility] Last Admin: 04/12/19 09:29 Dose: 100 mg Documented by: Sevelamer Carbonate (Renvela) 4,000 mg PO TIDWM [facility] Last Admin: 04/12/19 08:18 Dose: 4,000 mg Documented by: Sodium Chloride (Sodium Chloride Flush Syringe 10 Ml) 10 ml IV BID [facility] Last Admin: 04/12/19 09:30 Dose: 10 ml Documented by: Sodium Chloride (Sodium Chloride Flush Syringe 10 Ml) 10 ml IV PRN PRN PRN Reason: LINE FLUSH Exam - Vital Signs Vital signs: Vital Signs Temp Pulse Resp BP Pulse Ox 97.9 F 80 16 150/90 100 04/11/19 11:55 04/11/19 11:55 04/11/19 11:55 04/11/19 11:55 04/11/19 11:55 - Physical Exam Narrative exam: Gen. appearance: Patient lying in bed, no apparent distress HEENT: Normocephalic, atraumatic, pupils equally round and reactive to light, extraocular movement intact, and no sclericterus,. No JVD or thyromegaly or no dule,neck supple, no carotid bruit ,mucous membranes moist, no exudate or erythema Heart: S1, S2, regular rate and rhythm Lungs: Clear bilaterally, breathing comfortable Abdomen: Positive bowel sounds, nontender, nondistended, no organomegaly Extremity: Left foot in the bandage , no edema, cyanosis, clubbing Skin: No rash, nodules, warm, dry Neuro: speech is fluent, moves extremities, sensory intact Results - Lab Results 04/12/19 09:27 01/01/20 09:27 Most recent lab results Calcium 8.9 mg/dL (8.4-10.2) 04/12/19 09:27 Assessment and Plan End-stage renal disease on hemodialysis: Status post TMA of the second and third toe Hypertension Thrombocytopenia Anemia of chronic disease due to ESRD: -On HD MWF -HD today, Eval for need daily -Epogen with HD -Renal diet -Renally dose all meds -Strict I/Os Eric Irizarry MD [phone]
[2019-04-12] MEDS ORDERED: SILVER NITRATE APPLICATOR 1 EA TP STA (11:50)
--- NOTE | 2019-04-12 12:02 | Progress Note ---
Assessment and Plan s/p amputationof lef 2nd and 3 rd toes yesterday for chronic osteomyelitis,cardiac davalos stable.Continue medical therapy. - Patient Problems (1) CAD (coronary artery disease) Current Visit: No Status: Chronic (2) Depression Current Visit: No Status: Chronic (3) Diabetes mellitus Current Visit: No Status: Chronic Qualifiers: Diabetes mellitus type: type 2 Diabetes mellitus complication status: with unspecified complications (4) ESRD (end stage renal disease) Current Visit: No Status: Chronic Subjective Date of service: 04/12/19 Interval history: s/p left 2 nd and 3 rd toes,c/o bleeding at op site.Deniea any chest pain or SOB. Objective Vital Signs Temp Pulse Resp BP Pulse Ox 04/12/19 09:25 95 04/12/19 05:26 97.3 F L 81 16 96/52 95 04/12/19 00:21 98.4 F 92 H 16 145/85 94 04/11/19 22:30 18 04/11/19 20:11 97.3 F L 78 18 131/79 97 04/11/19 18:30 72 14 184/80 100 04/11/19 18:15 69 16 175/88 98 04/11/19 18:00 73 16 198/85 94 04/11/19 17:45 70 10 L 189/91 92 04/11/19 17:40 70 10 L 199/89 100 04/11/19 17:35 78 12 166/84 100 04/11/19 17:30 71 13 181/74 99 04/11/19 17:20 97.9 F 71 20 193/78 100 04/11/19 12:20 97.9 F 80 16 150/90 100 - Physical Examination General: No Apparent Distress Neck: Positive: trachea midline Cardiac: Positive: Regular Rhythm Lungs: Positive: clear to auscultation Neuro: Positive: Grossly Intact Abdomen: Positive: Unremarkable Incision: Incision Site (dressing left foot.) Extremities: Present: Other (catheter in right thigh.) - Labs and Meds Cardiac Enzymes 04/11/19 Range/Units 13:08 AST 29 (5-40) units/L CBC 04/11/19 04/12/19 Range/Units 13:08 09:27 WBC 4.2 L 4.8 (4.5-11.0) K/mm3 RBC 3.56 L 3.22 L (3.65-5.03) M/mm3 Hgb 8.6 L 7.8 L (11.8-15.2) gm/dl Hct 26.9 L 24.4 L (35.5-45.6) % Plt Count 92 L 96 L (140-440) K/mm3 Lymph # Pit Furnace Operator [place] # Pit Furnace Operator Eos # Pit Furnace Operator Baso # Pit Furnace Operator Comprehensive Metabolic Panel 04/11/19 04/12/19 Range/Units 13:08 09:27 Sodium 144 141 (137-145) mmol/L Potassium 4.7 4.9 (3.6-5.0) mmol/L Chloride 93.6 L 93.7 L (98-107) mmol/L Carbon Dioxide 34 H 31 H (22-30) mmol/L BUN 24 H 35 H (9-20) mg/dL Creatinine 6.2 H 7.0 H (0.8-1.5) mg/dL Glucose 83 128 H (75-100) mg/dL Calcium 9.3 8.9 (8.4-10.2) mg/dL AST 29 (5-40) units/L ALT 19 (7-56) units/L Alkaline Phosphatase 101 (35-129) units/L Total Protein 8.8 H (6.3-8.2) g/dL Albumin 4.0 (3.9-5) g/dL
[2019-04-12 12:25] LABS: Anisocytosis 2+; Basophils % (Manual) 0 % (0.0-1.8); Dimorphic RBC Yes; Eosinophils % (Manual) 0 % (0.0-4.3); Hypochromasia 1+; Target Cells Few; Total Cells Counted 100
[2019-04-12 12:26] LABS: Hepatitis C Virus Antibody Non-Reactive (NonReactive)
[2019-04-12 12:26] LABS: Platelet Estimate Consistent w Auto
[2019-04-12 12:28] LABS: Hepatitis B Surface Antigen Non-Reactive (Negative)
--- NOTE | 2019-04-12 12:33 | Progress Note ---
Assessment and Plan - Patient Problems (1) Osteomyelitis Current Visit: No Status: Acute Plan to address problem: 1) Wound packing was left in place. Nurse to reapply a Kerlix roll. 2) If pt is discharged today, he will f[facility]u in [facility] tomorrow at 10:00 am. 3) If pt is not discharged today, I will round on him tomorrow. Subjective Date of service: 04/12/19 Patient Reports: Positive: no new complaints Objective Vital Signs - 12hr 04/12/19 04/12/19 05:26 09:25 Temperature 97.3 F L Pulse Rate 81 Respiratory 16 Rate Blood Pressure 96/52 O2 Sat by Pulse 95 95 Oximetry - Musculoskeletal other (Foot wound with small amount of blood saturated through dressing. Dressing taken down with no active bleeding.) - Labs 04/12/19 09:27 04/12/19 09:27 Diabetes panel 04/11/19 04/12/19 Range/Units 13:08 09:27 Sodium 144 141 (137-145) mmol/L Potassium 4.7 4.9 (3.6-5.0) mmol/L Chloride 93.6 L 93.7 L (98-107) mmol/L Carbon Dioxide 34 H 31 H (22-30) mmol/L BUN 24 H 35 H (9-20) mg/dL Creatinine 6.2 H 7.0 H (0.8-1.5) mg/dL Glucose 83 128 H (75-100) mg/dL Calcium 9.3 8.9 (8.4-10.2) mg/dL AST 29 (5-40) units/L ALT 19 (7-56) units/L Alkaline Phosphatase 101 (35-129) units/L Total Protein 8.8 H (6.3-8.2) g/dL Albumin 4.0 (3.9-5) g/dL Calcium panel 04/11/19 04/12/19 Range/Units 13:08 09:27 Calcium 9.3 8.9 (8.4-10.2) mg/dL Albumin 4.0 (3.9-5) g/dL Pituitary panel 04/11/19 04/12/19 Range/Units 13:08 09:27 Sodium 144 141 (137-145) mmol/L Potassium 4.7 4.9 (3.6-5.0) mmol/L Chloride 93.6 L 93.7 L (98-107) mmol/L Carbon Dioxide 34 H 31 H (22-30) mmol/L BUN 24 H 35 H (9-20) mg/dL Creatinine 6.2 H 7.0 H (0.8-1.5) mg/dL Glucose 83 128 H (75-100) mg/dL Calcium 9.3 8.9 (8.4-10.2) mg/dL Adrenal panel 04/11/19 04/12/19 Range/Units 13:08 09:27 Sodium 144 141 (137-145) mmol/L Potassium 4.7 4.9 (3.6-5.0) mmol/L Chloride 93.6 L 93.7 L (98-107) mmol/L Carbon Dioxide 34 H 31 H (22-30) mmol/L BUN 24 H 35 H (9-20) mg/dL Creatinine 6.2 H 7.0 H (0.8-1.5) mg/dL Glucose 83 128 H (75-100) mg/dL Calcium 9.3 8.9 (8.4-10.2) mg/dL Total Bilirubin 0.30 (0.1-1.2) mg/dL AST 29 (5-40) units/L ALT 19 (7-56) units/L Alkaline Phosphatase 101 (35-129) units/L Total Protein 8.8 H (6.3-8.2) g/dL Albumin 4.0 (3.9-5) g/dL
[2019-04-12] MEDS: HYDROmorphone 1 MG/1 ML INJ IV PRN (13:08)
[2019-04-12] MEDS ORDERED: EPOETIN ALFA 2,000 UNIT/1 ML VIAL SUB-Q ONE (13:55)
--- NOTE | 2019-04-12 15:49 | Discharge Summary ---
Providers - Providers Date of Admission: 04/11/19 18:08 Date of discharge: 04/12/19 Attending physician: QUAN SHRESTHA 04/11/19 22:19 Consult to Physician [CONS] Routine Comment: Consulting Provider: NIRMALA ALVAREZ Physician Instructions: Reason For Exam: hd Consult to Physician [CONS] Routine Comment: Consulting Provider: EV AUSTIN Physician Instructions: Reason For Exam: s/p toe amputation Primary care physician: GUME COOPER Hospitalization Condition: Stable Hospital course: Patient is 54-year-old man with a history of hypertension, GERD, hyperlipidemia, end-stage renal disease on hemodialysis Wednesday, Wednesday, status post TMA of the left second and third toe by Dr. Stewart. Patient did well after surgery, however he stated that his domestic violence advocate Dr. Keller wanted him to be observed overnight. States that he has a catheter in his right thigh that has not been used with dialysis over the last 2 months and he needs it to be taken out. The patient has an appointment scheduled for the removal with Dr. Taylor, he currently has no other complaints End-stage renal disease Patient scheduled for dialysis tomorrow, consult renal Status post TMA of the second and third toe Start pain medication, observe d/w Dr. Stewart Hypertension Start outpatient medications Thrombocytopenia Disposition: TO HOME OR SELFCARE Time spent for discharge: 31 min Core Measure Documentation - Palliative Care Palliative Care/ Comfort Measures: Not Applicable - Core Measures Any of the following diagnoses?: none - VTE Discharge Requirements Deep Vein Thrombosis/Pulmonary Embolism Present on Admission: No Has pt received <5 days of overlap therapy or INR<2.0: No Anticoagulant overlap therapy prescribed at discharge: No Contraindication No Overlap Therapy order at DC: Not Indicated Exam - Physical Exam Narrative exam: Gen: WDWN, NAD, Awake, Alert, Orientated HEENT: NCAT, EOMI, PERRL, OP Clear Neck: supple, no adenopathy, no thyromegaly, no JVD CVS/Heart: RRR, normal S1S2, pulses present bilaterally Chest/Lungs: CTA B, Symmetrical chest expansion, good air entry bilaterally GI/Abdomen: soft, NTND, good bowel sounds, no guarding or rebound /Bladder: no suprapubic tenderness, no CVA or paraspinal tenderness Extermity/Skin: toe surgery dsg intact MSK: FROM x 4 Neuro: CN 2-12 grossly intact, no new focal deficits Psych: calm - Constitutional Vitals: Temp Pulse Resp BP Pulse Ox 98.0 F 85 18 145/99 97 04/12/19 12:35 04/12/19 12:35 04/12/19 12:35 04/12/19 12:35 04/12/19 12:35 Plan Activity: other (no strenous activity) Diet: renal Follow up with: GUME COOPER MD [Primary Care Provider] - 7 Days YURIDIA STEWART MD [Staff Physician] - 04/13/19 10:00 am Prescriptions: oxyCODONE /ACETAMINOPHEN [Percocet 5/325] 1 tab PO Q6HR PRN #40 tab PRN Reason: Pain, Moderate (4-6)
[2019-04-12] MEDS ORDERED: EPOETIN ALFA 10,000 UNIT/1 ML INJ SUB-Q ONE (16:00)
[2019-04-12] MEDS: INSULIN LISPRO 100 UNIT/ML SUB-Q SCH (17:16)
[2019-04-12] MEDS ORDERED: EPOETIN ALFA 10,000 UNIT/1 ML INJ ONE (23:45)
[2019-04-13] MEDS ORDERED: SODIUM CHLORIDE*PRIMING MACHINE ONLY FOR DIALYSIS MC ONE (01:00)
[2019-04-13] MEDS: HYDROmorphone 1 MG/1 ML INJ IV PRN (01:52)
[2019-04-13] MEDS: INSULIN LISPRO 100 UNIT/ML SUB-Q SCH ×2 (01:53→08:19)
[2019-04-13] MEDS: PREGABALIN 75 MG CAP PO SCH (01:53)
[2019-04-13] MEDS: PREGABALIN 25 MG CAP PO SCH (01:53)
[2019-04-13] MEDS: FAMOTIDINE 10 MG TAB PO SCH (01:53)
[2019-04-13] MEDS: carvediloL 3.125 MG TAB PO SCH (01:54)
[2019-04-13 05:22] VITALS: BP 135/81
--- NOTE | 2019-04-13 07:44 | Progress Note ---
Assessment and Plan Assessment and plan: Patient is 54-year-old man with a history of hypertension, GERD, hyperlipidemia, end-stage renal disease on hemodialysis Wednesday, Wednesday, status post TMA of the left second and third toe by Dr. Mcdonnell. Patient did well after surgery, however he stated that his dryer operator Dr. Keller wanted him to be observed overnight. States that he has a catheter in his right thigh that has not been used with dialysis over the last 2 months and he needs it to be taken out. The patient has an appointment scheduled for the removal with Dr. Taylor, he currently has no other complaints End-stage renal disease Patient scheduled for dialysis tomorrow, consult renal Status post TMA of the second and third toe Start pain medication, observe d/w Dr. Mcdonnell Hypertension Start outpatient medications Thrombocytopenia d/c not leave after HD because too late HD finished and missed ride History Interval history: f/u toe wound s/p amputation yesterday in outpatient setting Hospitalist Physical - Physical exam Narrative exam: Gen: WDWN, NAD, Awake, Alert, Orientated HEENT: NCAT, EOMI, PERRL, OP Clear Neck: supple, no adenopathy, no thyromegaly, no JVD CVS/Heart: RRR, normal S1S2, pulses present bilaterally Chest/Lungs: CTA B, Symmetrical chest expansion, good air entry bilaterally GI/Abdomen: soft, NTND, good bowel sounds, no guarding or rebound /Bladder: no suprapubic tenderness, no CVA or paraspinal tenderness Extermity/Skin: toe surgery dsg intact MSK: FROM x 4 Neuro: CN 2-12 grossly intact, no new focal deficits Psych: calm - Constitutional Vitals: Temp Pulse Resp BP Pulse Ox 98.8 F 77 20 135/81 97 04/13/19 05:20 04/13/19 05:20 04/13/19 05:20 04/13/19 05:20 04/13/19 05:20 Results - Labs CBC & Chem 7: 04/12/19 09:27 04/12/19 09:27 Labs: Laboratory Last Values WBC 4.8 K/mm3 (4.5-11.0) 04/12/19 09:27 RBC 3.22 M/mm3 (3.65-5.03) L 04/12/19 09:27 Hgb 7.8 gm/dl (11.8-15.2) L 04/12/19 09:27 Hct 24.4 % (35.5-45.6) L 04/12/19 09:27 MCV 76 fl (84-94) L 04/12/19 09:27 MCH 24 pg (28-32) L 04/12/19 09:27 MCHC 32 % (32-34) 04/12/19 09:27 RDW 25.4 % (13.2-15.2) H 04/12/19 09:27 Plt Count 96 K/mm3 (140-440) L 04/12/19 09:27 Lymph % (Auto) Non Destructive Evaluation Specialist 04/11/19 13:08 Harvey % (Auto) Non Destructive Evaluation Specialist 04/11/19 13:08 Eos % (Auto) Non Destructive Evaluation Specialist 04/11/19 13:08 Baso % (Auto) Non Destructive Evaluation Specialist 04/11/19 13:08 Lymph # Non Destructive Evaluation Specialist 04/11/19 13:08 Harvey # Non Destructive Evaluation Specialist 04/11/19 13:08 Eos # Non Destructive Evaluation Specialist 04/11/19 13:08 Baso # Non Destructive Evaluation Specialist 04/11/19 13:08 Add Manual Diff Complete 04/12/19 09:27 Total Counted 100 04/12/19 09:27 Seg Neutrophils % Non Destructive Evaluation Specialist 04/11/19 13:08 Seg Neuts % (Manual) 69.0 % (40.0-70.0) 04/12/19 09:27 Band Neutrophils % 0 % 04/12/19 09:27 Lymphocytes % (Manual) 29.0 % (13.4-35.0) 04/12/19 09:27 Reactive Lymphs % (Man) 0 % 04/12/19 09:27 Monocytes % (Manual) 2.0 % (0.0-7.3) 04/12/19 09:27 Eosinophils % (Manual) 0 % (0.0-4.3) 04/12/19 09:27 Basophils % (Manual) 0 % (0.0-1.8) 04/12/19 09:27 Metamyelocytes % 0 % 04/12/19 09:27 Myelocytes % 0 % 04/12/19 09:27 Promyelocytes % 0 % 04/12/19 09:27 Blast Cells % 0 % 04/12/19 09:27 Nucleated RBC % Not Reportable 04/12/19 09:27 Seg Neutrophils # Non Destructive Evaluation Specialist 04/11/19 13:08 Seg Neutrophils # Man 3.3 K/mm3 (1.8-7.7) 04/12/19 09:27 Band Neutrophils # 0.0 K/mm3 04/12/19 09:27 Lymphocytes # (Manual) 1.4 K/mm3 (1.2-5.4) 04/12/19 09:27 Abs React Lymphs (Man) 0.0 K/mm3 04/12/19 09:27 Monocytes # (Manual) 0.1 K/mm3 (0.0-0.8) 04/12/19 09:27 Eosinophils # (Manual) 0.0 K/mm3 (0.0-0.4) 04/12/19 09:27 Basophils # (Manual) 0.0 K/mm3 (0.0-0.1) 04/12/19 09:27 Metamyelocytes # 0.0 K/mm3 04/12/19 09:27 Myelocytes # 0.0 K/mm3 04/12/19 09:27 Promyelocytes # 0.0 K/mm3 04/12/19 09:27 Blast Cells # 0.0 K/mm3 04/12/19 09:27 WBC Morphology Not Reportable 04/12/19 09:27 Hypersegmented Neuts Not Reportable 04/12/19 09:27 Hyposegmented Neuts Not Reportable 04/12/19 09:27 Hypogranular Neuts Not Reportable 04/12/19 09:27 Smudge Cells Not Reportable 04/12/19 09:27 Toxic Granulation Not Reportable 04/12/19 09:27 Toxic Vacuolation Not Reportable 04/12/19 09:27 Dohle Bodies Not Reportable 04/12/19 09:27 Pelger-Huet Anomaly Not Reportable 04/12/19 09:27 Faheem Rods Not Reportable 04/12/19 09:27 Platelet Estimate Consistent w auto 04/12/19 09:27 Clumped Platelets Not Reportable 04/12/19 09:27 Plt Clumps, EDTA Not Reportable 04/12/19 09:27 Large Platelets Not Reportable 04/12/19 09:27 Giant Platelets Not Reportable 04/12/19 09:27 Platelet Satelliting Not Reportable 04/12/19 09:27 Plt Morphology Comment Not Reportable 04/12/19 09:27 RBC Morphology Not Reportable 04/12/19 09:27 Dimorphic RBCs Yes 04/12/19 09:27 Polychromasia Not Reportable 04/12/19 09:27 Hypochromasia 1+ 04/12/19 09:27 Poikilocytosis Not Reportable 04/12/19 09:27 Anisocytosis 2+ 04/12/19 09:27 Microcytosis Not Reportable 04/12/19 09:27 Macrocytosis Not Reportable 04/12/19 09:27 Spherocytes Not Reportable 04/12/19 09:27 Pappenheimer Bodies Not Reportable 04/12/19 09:27 Sickle Cells Not Reportable 04/12/19 09:27 Target Cells Few 04/12/19 09:27 Tear Drop Cells Not Reportable 04/12/19 09:27 Ovalocytes Not Reportable 04/12/19 09:27 Helmet Cells Not Reportable 04/12/19 09:27 Zhao-[place] Bodies Not Reportable 04/12/19 09:27 [place] Rings Not Reportable 04/12/19 09:27 Yina Cells Not Reportable 04/12/19 09:27 Bite Cells Not Reportable 04/12/19 09:27 Crenated Cell Not Reportable 04/12/19 09:27 Elliptocytes Not Reportable 04/12/19 09:27 Acanthocytes (Spur) Not Reportable 04/12/19 09:27 Rouleaux Not Reportable 04/12/19 09:27 Hemoglobin C Crystals Not Reportable 04/12/19 09:27 Schistocytes Not Reportable 04/12/19 09:27 Malaria parasites Not Reportable 04/12/19 09:27 Carlos Bodies Not Reportable 04/12/19 09:27 Hem Pathologist Commnt No 04/12/19 09:27 Sodium 141 mmol/L (137-145) 04/12/19 09:27 Potassium 4.9 mmol/L (3.6-5.0) 04/12/19 09:27 Chloride 93.7 mmol/L (98-107) L 04/12/19 09:27 Carbon Dioxide 31 mmol/L (22-30) H 04/12/19 09:27 Anion Gap 21 mmol/L 04/12/19 09:27 BUN 35 mg/dL (9-20) H 04/12/19 09:27 Creatinine 7.0 mg/dL (0.8-1.5) H 04/12/19 09:27 Estimated GFR 10 ml/min 04/12/19 09:27 BUN/Creatinine Ratio 5 % 04/12/19 09:27 Glucose 128 mg/dL (75-100) H 04/12/19 09:27 POC Glucose 70 (70-105) 04/13/19 01:57 Calcium 8.9 mg/dL (8.4-10.2) 04/12/19 09:27 Total Bilirubin 0.30 mg/dL (0.1-1.2) 04/11/19 13:08 AST 29 units/L (5-40) 04/11/19 13:08 ALT 19 units/L (7-56) 04/11/19 13:08 Alkaline Phosphatase 101 units/L (35-129) 04/11/19 13:08 Total Protein 8.8 g/dL (6.3-8.2) H 04/11/19 13:08 Albumin 4.0 g/dL (3.9-5) 04/11/19 13:08 Albumin/Globulin Ratio 0.8 % 04/11/19 13:08 Hepatitis A IgM Ab Non-reactive (NonReactive) 04/12/19 09:44 Hep Bs Antigen Non-reactive (Negative) 04/12/19 09:44 Hep B Core IgM Ab Non-reactive (NonReactive) 04/12/19 09:44 Hepatitis C Antibody Non-reactive (NonReactive) 04/12/19 09:44 Active Medications - Current Medications Current Medications: Generic Name Dose Route Start Last Admin Trade Name Freq PRN Reason Stop Dose Admin Acetaminophen 650 mg 04/11/19 22:19 Tylenol PO Q4H PRN Pain MILD(1-3)/Fever >100.5/WEST Alprazolam 2 mg 04/12/19 00:30 Xanax PO TID PRN Anxiety Aspirin 325 mg 04/12/19 10:00 04/12/19 09:29 Aspirin PO 325 mg QDAY KWAME Administration Atorvastatin Calcium 40 mg 04/12/19 22:00 04/13/19 01:53 Lipitor PO 40 mg QHS KWAME Administration Carvedilol 3.125 mg 04/12/19 10:00 04/13/19 01:54 Coreg PO Not Given BID KWAME Clopidogrel Bisulfate 75 mg 04/12/19 10:00 04/12/19 09:29 Plavix PO 75 mg QDAY KWAME Administration Famotidine 10 mg 04/12/19 10:00 04/13/19 01:53 Pepcid PO 10 mg BID KWAME Administration Hydromorphone HCl 0.5 mg 04/11/19 21:34 04/13/19 01:52 Dilaudid IV 0.5 mg Q3H PRN Administration Pain , Severe (7-10) Sodium Chloride 100 mls @ 999 mls/hr 04/12/19 10:43 Nacl 0.9% IV DWIGHT PRN Hypotension Insulin Human Lispro 0 unit 04/12/19 16:30 04/13/19 01:53 Humalog SUB-Q Not Given ACHS [facility] Protocol Midodrine 5 mg 04/12/19 08:00 04/12/19 19:58 Proamatine PO 5 mg TID KWAME Administration Miscellaneous Medication 1 each 04/12/19 10:00 Cyclosporine [Restasis] OP BID [facility] Multivitamins 1 each 04/12/19 10:00 04/12/19 09:29 Theragran Tab PO 1 each QDAY KWAME Administration Ondansetron HCl 4 mg 04/11/19 22:19 Zofran IV Q8H PRN Nausea And Vomiting Pregabalin 75 mg 04/12/19 10:00 04/13/19 01:53 Pregabalin PO 75 mg BID KWAME Administration Pregabalin 25 mg 04/12/19 10:00 04/13/19 01:53 Pregabalin PO 25 mg BID KWAME Administration Sertraline HCl 100 mg 04/12/19 10:00 04/12/19 09:29 Zoloft PO 100 mg QDAY KWAME Administration Sevelamer Carbonate 4,000 mg 04/12/19 08:00 04/12/19 17:25 Renvela PO 4,000 mg TIDWM KWAME Administration Sodium Chloride 10 ml 04/12/19 10:00 04/13/19 01:55 Sodium Chloride Flush Syringe 10 Ml IV 10 ml BID KWAME Administration Sodium Chloride 10 ml 04/11/19 22:19 Sodium Chloride Flush Syringe 10 Ml IV PRN PRN LINE FLUSH
[2019-04-13] MEDS: MIDODRINE 5 MG TAB PO SCH (08:18)
[2019-04-13] MEDS: SEVELAMER CARBONATE 800 MG TAB PO SCH (08:18)
[2019-04-13] MEDS ORDERED: ASPIRIN 81 MG TAB CHEW PO SCH (10:00)
== END 2019-04-13 09:30 | disposition home or self-care (01) ==
LOC: SUATTDRO 11:58 → OR 11:58 → 3A 18:08
PROVIDERS: ADMIT Internal Medicine; ATTEND Internal Medicine
DX: M86.8X7 Other osteomyelitis, ankle and foot (principal); I12.0 Hypertensive chronic kidney disease with stage 5 chronic kidney disease or end stage renal disease; E11.22 Type 2 diabetes mellitus with diabetic chronic kidney disease; N18.6 End stage renal disease; D63.1 Anemia in chronic kidney disease; K21.9 Gastro-esophageal reflux disease without esophagitis; E78.5 Hyperlipidemia, unspecified; D69.6 Thrombocytopenia, unspecified; I25.10 Atherosclerotic heart disease of native coronary artery without angina pectoris; F32.9 Major depressive disorder, single episode, unspecified; Z89.422 Acquired absence of other left toe(s); Z79.899 Other long term (current) drug therapy; Z99.2 Dependence on renal dialysis
CPT/HCPCS: 28810; 36415; 80048; 80053; 80074; 82962; 85007; 85025; 87116; 88304; 88305; 88311; 96372; 96374; 96375; 96376; A9270; G0257; G0378; J0690; J0885; J1100; J1170; J1644; J2250; J2270; J2405; J2704; J3010; J7030; J7120

== ENCOUNTER 2019-04-18 11:35 | Outpatient (CLI) | payer MEDICARE | END 2019-04-18 11:36 | disposition home or self-care (01) | LOC: WOUND 11:35 | PROVIDERS: ATTEND Surgery | DX: E11.621 Type 2 diabetes mellitus with foot ulcer (principal); L97.521 Non-pressure chronic ulcer of other part of left foot limited to breakdown of skin; L84 Corns and callosities; E11.69 Type 2 diabetes mellitus with other specified complication; M86.672 Other chronic osteomyelitis, left ankle and foot; E11.22 Type 2 diabetes mellitus with diabetic chronic kidney disease; I12.0 Hypertensive chronic kidney disease with stage 5 chronic kidney disease or end stage renal disease; N18.6 End stage renal disease; F32.9 Major depressive disorder, single episode, unspecified | CPT/HCPCS: 82962; 97605 ==

== ENCOUNTER 2019-04-25 10:46 | Outpatient (CLI) | payer MEDICARE ==
[2019-04-25] MEDS ORDERED: LIDOCAINE (4%) 40 MG/ML TOPICAL SOLN 50 ML BOTTLE TP ONE (11:00)
== END 2019-04-25 10:47 | disposition home or self-care (01) ==
LOC: WOUND 10:46
PROVIDERS: ATTEND Surgery
DX: E11.621 Type 2 diabetes mellitus with foot ulcer (principal); L97.521 Non-pressure chronic ulcer of other part of left foot limited to breakdown of skin; L84 Corns and callosities; E11.69 Type 2 diabetes mellitus with other specified complication; M86.672 Other chronic osteomyelitis, left ankle and foot; E11.22 Type 2 diabetes mellitus with diabetic chronic kidney disease; I12.0 Hypertensive chronic kidney disease with stage 5 chronic kidney disease or end stage renal disease; N18.6 End stage renal disease; F32.9 Major depressive disorder, single episode, unspecified
CPT/HCPCS: 97605

== ENCOUNTER 2019-05-02 10:46 | Outpatient (CLI) | payer MEDICARE ==
[2019-05-02] MEDS ORDERED: LIDOCAINE (4%) 40 MG/ML TOPICAL SOLN 50 ML BOTTLE TP ONE (11:00)
== END 2019-05-02 10:47 | disposition home or self-care (01) ==
LOC: WOUND 10:46
PROVIDERS: ATTEND Surgery
DX: E11.621 Type 2 diabetes mellitus with foot ulcer (principal); L97.521 Non-pressure chronic ulcer of other part of left foot limited to breakdown of skin; L84 Corns and callosities; E11.69 Type 2 diabetes mellitus with other specified complication; M86.672 Other chronic osteomyelitis, left ankle and foot; E11.22 Type 2 diabetes mellitus with diabetic chronic kidney disease; I12.0 Hypertensive chronic kidney disease with stage 5 chronic kidney disease or end stage renal disease; N18.6 End stage renal disease; F32.9 Major depressive disorder, single episode, unspecified
CPT/HCPCS: 97605

== ENCOUNTER 2019-05-09 11:09 | Outpatient (CLI) | payer MEDICARE ==
[2019-05-09] MEDS ORDERED: LIDOCAINE (4%) 40 MG/ML TOPICAL SOLN 50 ML BOTTLE TP ONE (11:10)
== END 2019-05-09 11:10 | disposition home or self-care (01) ==
LOC: WOUND 11:09
PROVIDERS: ATTEND Surgery
DX: E11.621 Type 2 diabetes mellitus with foot ulcer (principal); L97.521 Non-pressure chronic ulcer of other part of left foot limited to breakdown of skin; L84 Corns and callosities; E11.69 Type 2 diabetes mellitus with other specified complication; M86.672 Other chronic osteomyelitis, left ankle and foot; E11.22 Type 2 diabetes mellitus with diabetic chronic kidney disease; I12.0 Hypertensive chronic kidney disease with stage 5 chronic kidney disease or end stage renal disease; N18.6 End stage renal disease; F32.9 Major depressive disorder, single episode, unspecified
CPT/HCPCS: 97605

== ENCOUNTER 2019-05-16 10:40 | Outpatient (CLI) | payer MEDICARE ==
[2019-05-16] MEDS ORDERED: LIDOCAINE (4%) 40 MG/ML TOPICAL SOLN 50 ML BOTTLE TP ONE (11:30)
== END 2019-05-16 10:41 | disposition home or self-care (01) ==
LOC: WOUND 10:40
PROVIDERS: ATTEND Surgery
DX: E11.621 Type 2 diabetes mellitus with foot ulcer (principal); L97.521 Non-pressure chronic ulcer of other part of left foot limited to breakdown of skin; L84 Corns and callosities; E11.69 Type 2 diabetes mellitus with other specified complication
CPT/HCPCS: 97605

== ENCOUNTER 2019-05-23 10:41 | Outpatient (CLI) | payer MEDICARE ==
[2019-05-23] MEDS ORDERED: LIDOCAINE (4%) 40 MG/ML TOPICAL SOLN 50 ML BOTTLE TP ONE (11:02)
== END 2019-05-23 10:42 | disposition home or self-care (01) ==
LOC: WOUND 10:41
PROVIDERS: ATTEND Surgery
DX: E11.621 Type 2 diabetes mellitus with foot ulcer (principal); L97.521 Non-pressure chronic ulcer of other part of left foot limited to breakdown of skin; L84 Corns and callosities; E11.69 Type 2 diabetes mellitus with other specified complication; M86.672 Other chronic osteomyelitis, left ankle and foot; E11.22 Type 2 diabetes mellitus with diabetic chronic kidney disease; I12.0 Hypertensive chronic kidney disease with stage 5 chronic kidney disease or end stage renal disease; N18.6 End stage renal disease; F32.9 Major depressive disorder, single episode, unspecified; Z99.2 Dependence on renal dialysis
CPT/HCPCS: 97605

== ENCOUNTER 2019-06-08 11:04 | Outpatient (CLI) | payer MEDICARE ==
[2019-06-08] MEDS ORDERED: LIDOCAINE (4%) 40 MG/ML TOPICAL SOLN 50 ML BOTTLE TP ONE (11:19)
== END 2019-06-08 11:05 | disposition home or self-care (01) ==
LOC: WOUND 11:04
PROVIDERS: ATTEND Surgery
DX: E11.621 Type 2 diabetes mellitus with foot ulcer (principal); L97.521 Non-pressure chronic ulcer of other part of left foot limited to breakdown of skin; L84 Corns and callosities; E11.69 Type 2 diabetes mellitus with other specified complication; M86.672 Other chronic osteomyelitis, left ankle and foot; E11.22 Type 2 diabetes mellitus with diabetic chronic kidney disease; I12.0 Hypertensive chronic kidney disease with stage 5 chronic kidney disease or end stage renal disease; N18.6 End stage renal disease; F32.9 Major depressive disorder, single episode, unspecified; Z99.2 Dependence on renal dialysis
CPT/HCPCS: 97605

== ENCOUNTER 2019-06-15 10:57 | Outpatient (CLI) | payer MEDICARE ==
[2019-06-15] MEDS ORDERED: LIDOCAINE (4%) 40 MG/ML TOPICAL SOLN 50 ML BOTTLE TP ONE (11:30)
== END 2019-06-15 10:58 | disposition home or self-care (01) ==
LOC: WOUND 10:57
PROVIDERS: ATTEND Surgery
DX: E11.621 Type 2 diabetes mellitus with foot ulcer (principal); L97.521 Non-pressure chronic ulcer of other part of left foot limited to breakdown of skin; L84 Corns and callosities; E11.69 Type 2 diabetes mellitus with other specified complication; M86.672 Other chronic osteomyelitis, left ankle and foot; E11.22 Type 2 diabetes mellitus with diabetic chronic kidney disease; I12.0 Hypertensive chronic kidney disease with stage 5 chronic kidney disease or end stage renal disease; N18.6 End stage renal disease; F32.9 Major depressive disorder, single episode, unspecified; Z99.2 Dependence on renal dialysis

== ENCOUNTER 2019-06-27 10:58 | Outpatient (CLI) | payer MEDICARE | END 2019-06-27 10:59 | disposition home or self-care (01) | LOC: WOUND 10:58 | PROVIDERS: ATTEND Surgery | DX: E11.621 Type 2 diabetes mellitus with foot ulcer (principal); L97.521 Non-pressure chronic ulcer of other part of left foot limited to breakdown of skin; L97.522 Non-pressure chronic ulcer of other part of left foot with fat layer exposed; L84 Corns and callosities; E11.69 Type 2 diabetes mellitus with other specified complication; M86.672 Other chronic osteomyelitis, left ankle and foot; E11.22 Type 2 diabetes mellitus with diabetic chronic kidney disease; I12.0 Hypertensive chronic kidney disease with stage 5 chronic kidney disease or end stage renal disease; N18.6 End stage renal disease; F32.9 Major depressive disorder, single episode, unspecified; Z99.2 Dependence on renal dialysis | CPT/HCPCS: 97597 ==

== ENCOUNTER 2019-12-07 08:01 | Outpatient (CLI) | payer MEDICARE ==
--- NOTE | 2019-12-07 09:28 | Cat Scan Report ---
CT abdomen pelvis wo con INDICATION: R10.32 LLQ ABDOMINAL PAIN/R19.7 DIARRHEA/E13.43GASTROPARESIS DUE. COMPARISON: September 26, 2015 TECHNIQUE: Abdominal and pelvic CT exam performed. All CT scans at this location are performed using CT dose reduction for ALARA by means of automated exposure control. FINDINGS: CT ABDOMEN and PELVIS: Lung Bases: Bibasilar atelectasis. Liver: No significant abnormality. Biliary: Gallbladder is contracted. Spleen: No significant abnormality. Pancreas: No significant abnormality. Adrenals: No significant abnormality. Kidneys: Small kidneys with numerous bilateral renal cysts of differing attenuation and complexity. A couple of bilateral nonobstructing renal stones. No hydronephrosis. Lymphatics: No lymphadenopathy. Vasculature: There are calcifications along hepatic portion of the IVC. Small quantity of arterial at herosclerosis. No aneurysm. Bowel/Peritoneum: No significant abnormality. Normal appendix. Pelvis: No significant abnormality. Osseous Structures: Sclerosis the bones consistent with renal osteodystrophy. Severe multilevel spond ylosis. Multilevel chronic vertebral body height loss. There is severe near complete loss of T10 vert ebral body height and more moderate loss at L3 and L4. Diffuse irregularity of the endplates and face t joints. No acute osseous abnormality. Additional Findings: None IMPRESSION: 1. No acute abnormality of the abdomen or pelvis. 2. Renal atrophy with bilateral small cysts of differing complexities similar to prior examination. F indings of renal osteodystrophy with multilevel vertebral body height loss most pronounced at T10 wit h mild proximal junctional kyphosis similar to prior examination. Signer Name: Lamin Kearney MD Signed: 12/07/2019 9:23 AM Workstation Name: [email or web address]
== END 2019-12-07 08:02 | disposition home or self-care (01) ==
LOC: CT 08:01
PROVIDERS: ATTEND Internal Medicine Gastroenterology
DX: N20.0 Calculus of kidney (principal); N28.1 Cyst of kidney, acquired; K76.89 Other specified diseases of liver; M47.817 Spondylosis without myelopathy or radiculopathy, lumbosacral region; N25.0 Renal osteodystrophy; M40.294 Other kyphosis, thoracic region; R19.7 Diarrhea, unspecified; E13.43 Other specified diabetes mellitus with diabetic autonomic (poly)neuropathy
CPT/HCPCS: 74176